=== PATIENT | female | born 1950 | race Caucasian/White ===

== ENCOUNTER 2016-11-05 05:32 | Inpatient (IN) | payer MEDICARE ==
[2016-11-05] MEDS ORDERED: SODIUM CHLORIDE 0.9% 1,000 ML IV STA (05:46)
[2016-11-05] MEDS ORDERED: MORPHINE SULFATE 4 MG/ML SYRINGE IV STA (05:46)
--- NOTE | 2016-11-05 05:47 | ED ---
General Adult HPI - General Chief complaint: Chest Pain Stated complaint: Chest Pain Time Seen by Provider: 11/05/16 05:34 Source: patient, RN notes reviewed, old records reviewed Mode of arrival: wheelchair Limitations: no limitations - History of Present Illness Initial comments: This is a 66-year-old female in the ER for evaluation. Patient coming in for evaluation of chest pain, racing heart and shortness of breath. Patient did take nitroglycerin but was unable take any regular medications. Patient does have significant history of heart disease including stents, patient was on her way to she can for evaluation status post renal transplant today, was a symptomatically last night and the visit was just follow-up. Patient denies any recent fever cough or congestion, patient was feeling normal, these symptoms all seem to begin today. No modifying factors for sepsis, patient currently is resting comfortably - Related Data Home Medications Medication Instructions Recorded Confirmed Ascorbic Acid [Vitamin C] 500 mg PO DAILY 04/09/15 11/05/16 Aspirin EC [Ecotrin Low Dose] 81 mg PO DAILY 04/09/15 11/05/16 Atenolol [Tenormin] 100 mg PO DAILY 04/09/15 11/05/16 Cholecalciferol [Vitamin D3] 2,000 unit PO DAILY 04/09/15 11/05/16 Ferrous Sulfate [Iron (65 MG 325 mg PO DAILY 04/09/15 11/05/16 Elemental)] Mycophenolate Mofetil [Cellcept] 250 mg PO BID@0900,2100 04/09/15 11/05/16 Mycophenolate Mofetil [Cellcept] 500 mg PO BID@0900,209904/09/15 11/05/16 Tacrolimus [Prograf] 2 mg PO BID 04/09/15 11/05/16 predniSONE 5 mg PO DAILY 04/09/15 11/05/16 HYDROcodone/APAP 5-325MG [[place] 1 tab PO Q6H PRN 03/04/16 11/05/16 5-325] Multivits-Min/Iron/FA/Lutein 1 tab PO DAILY 03/04/16 11/05/16 [Centrum Silver Women Tablet] Nitroglycerin Sl Tabs [Nitrostat] 0.4 mg SUBLINGUAL Q5M PRN 03/04/16 11/05/16 Vitamin B Complex 1 cap PO DAILY 03/04/16 11/05/16 Albuterol Inhaler [Ventolin Hfa 2 puff INHALATION RT-Q4H PRN 09/16/16 11/05/16 Inhaler] Atorvastatin [Lipitor] 20 mg PO DAILY 09/16/16 11/05/16 Furosemide [Lasix] 20 mg PO DAILY 09/16/16 11/05/16 Glucagon Emergency Kit 1 mg IM ONCE PRN 09/16/16 11/05/16 INSULIN LISPRO (HumaLOG) [humaLOG] See Protocol SQ CONTINUOUS 09/16/16 11/05/16 Ranitidine HCl [Zantac] 75 mg PO DAILY 09/16/16 11/05/16 Previous Rx's Medication Instructions Recorded rOPINIRole HCL [Requip] 1 mg PO BID #0 09/17/16 Allergies Allergy/AdvReac Type Severity Reaction Status Date / Time metoprolol tartrate Allergy Confusion Verified 11/05/16 05:39 [From Lopressor] Sulfa (Sulfonamide Allergy Unknown Verified 11/05/16 05:39 Antibiotics) vancomycin Allergy Unknown Verified 11/05/16 05:39 venom-honey bee Allergy Swelling Verified 11/05/16 05:39 [bee venom (honey bee)] Review of Systems ROS Statement: Those systems with pertinent positive or pertinent negative responses have been documented in the HPI. ROS Other: All systems not noted in ROS Statement are negative. Past Medical History Past Medical History: Coronary Artery Disease (CAD), Diabetes Mellitus, GERD/ Reflux, Hyperlipidemia, Hypertension, Renal Disease Additional Past Medical History / Comment(s): chronic anemia, IDDM with insulin pump, vitamin B-12 deficiency, vitamin D deficiency, chronic back problems PT stated has changed her diet and has lost 30 # IN 6 MONTHS. History of Any Multi-Drug Resistant Organisms: None Reported Past Surgical History: Section, Orthopedic Surgery Additional Past Surgical History / Comment(s): 2005 Kidney Transplant, bilateral cataracts removal with lens implants, retinal peeling in one eye, bilateral eye muscle surgery for diplopia, L achilles tendon repair , L upper arm dialysis fistula, Past Anesthesia/Blood Transfusion Reactions: No Reported Reaction Past Psychological History: No Psychological Hx Reported Additional Psychological History / Comment(s): Pt resides with her spouse and 2 dogs. 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 She is independent. She drives. She denies recent travel. Smoking Status: Never smoker Past Alcohol Use History: Occasional Additional Past Alcohol Use History / Comment(s): Patient is a lifelong nonsmoker. She does drink red wineOCC LESS THEN 7 GLASSES PER WEEK Past Drug Use History: None Reported - Past Family History Father Family Medical History: Myocardial Infarction ([place]) Additional Family Medical History / Comment(s): Father at age 70 from myocardial infarction Mother Additional Family Medical History / Comment(s): Mother at age 86 from pneumonia. Sister(s) Family Medical History: Cancer Additional Family Medical History / Comment(s): Patient has one sister that is alive and has had bresat cancer. She does not have any brothers. Patient has 2 children: One son that is healthy and one daughter with fibromyalgia. General Exam Limitations: no limitations General appearance: alert, in no apparent distress Head exam: Present: atraumatic, normocephalic, normal inspection Eye exam: Present: normal appearance, PERRL, EOMI. Absent: scleral icterus, conjunctival injection, periorbital swelling ENT exam: Present: normal exam, mucous membranes moist Neck exam: Present: normal inspection. Absent: tenderness, meningismus, lymphadenopathy Respiratory exam: Present: normal lung sounds bilaterally. Absent: respiratory distress, wheezes, rales, rhonchi, stridor Cardiovascular Exam: Present: regular rate, normal rhythm, normal heart sounds. Absent: systolic murmur, diastolic murmur, rubs, gallop, clicks GI/Abdominal exam: Present: soft, normal bowel sounds. Absent: distended, tenderness, guarding, rebound, rigid Extremities exam: Present: normal inspection, full ROM, normal capillary refill. Absent: tenderness, pedal edema, joint swelling, calf tenderness Back exam: Present: normal inspection Neurological exam: Present: alert, oriented X3, CN II-XII intact Psychiatric exam: Present: normal affect, normal mood Skin exam: Present: warm, dry, intact, normal color. Absent: rash Course Vital Signs 11/05/16 11/05/16 05:35 07:18 Temperature 97.7 F Pulse Rate 95 89 Respiratory 18 16 Rate Blood Pressure 204/101 213/104 O2 Sat by Pulse 99 Oximetry - Reevaluation(s) Reevaluation #1: 11/05/16 07:24 Blood pressure very difficult to control EKG Findings - EKG Comments: EKG Findings:: EKG shows normal sinus rhythm rate of 95, [place] 154, QRS 110, QTc 507 Medical Decision Making - Medical Decision Making 6060 mg ER for evaluation of hypertension, severely uncontrolled hypertension with chest pain in an rapid heart rate, elevated troponin, patient does have history of one kidney, patient will be admitted for cardiac evaluation and treatment - Lab Data Result diagrams: 11/05/16 06:09 11/05/16 06:09 Lab Results 11/05/16 11/05/16 11/05/16 Range/Units 06:09 06:09 06:09 WBC 5.8 (3.8-10.6) k/uL RBC 3.69 L (3.80-5.40) m/uL Hgb 10.8 L (11.4-16.0) gm/dL Hct 33.9 L (34.0-46.0) % MCV 91.8 (80.0-100.0) fL MCH 29.2 (25.0-35.0) pg MCHC 31.8 (31.0-37.0) g/dL RDW 14.0 (11.5-15.5) % Plt Count 242 (150-450) k/uL Neutrophils % 58 % Lymphocytes % 27 % Monocytes % 9 % Eosinophils % 3 % Basophils % 1 % Neutrophils # 3.4 (1.3-7.7) k/uL Lymphocytes # 1.6 (1.0-4.8) k/uL Monocytes # 0.5 (0-1.0) k/uL Eosinophils # 0.2 (0-0.7) k/uL Basophils # 0.0 (0-0.2) k/uL PT (9.0-12.0) sec INR (<1.1) APTT (22.0-30.0) sec Sodium 142 (137-145) mmol/L Potassium 4.1 (3.5-5.1) mmol/L Chloride 104 (98-107) mmol/L Carbon Dioxide 26 (22-30) mmol/L Anion Gap 12 mmol/L BUN 31 H (7-17) mg/dL Creatinine 1.60 H (0.52-1.04) mg/dL Est GFR (MDRD) Af Amer 39 (>60 ml/min/1.73 sqM) Est GFR (MDRD) Non-Af 32 (>60 ml/min/1.73 sqM) Glucose 199 H (74-99) mg/dL Calcium 9.4 (8.4-10.2) mg/dL Magnesium 1.6 (1.6-2.3) mg/dL Total Bilirubin 0.4 (0.2-1.3) mg/dL AST 26 (14-36) U/L ALT 31 (9-52) U/L Alkaline Phosphatase 93 (38-126) U/L Total Creatine Kinase 134 (30-135) U/L CK-MB (CK-2) 2.7 H* (0.0-2.4) ng/mL CK-MB (CK-2) Rel Index 2.0 Troponin I 0.055 H* (0.000-0.034) ng/mL NT-Pro-B Natriuret Pep pg/mL Total Protein 6.0 L (6.3-8.2) g/dL Albumin 3.4 L (3.5-5.0) g/dL Lipase 21 L (23-300) U/L 11/05/16 11/05/16 Range/Units 06:09 06:09 WBC (3.8-10.6) k/uL RBC (3.80-5.40) m/uL Hgb (11.4-16.0) gm/dL Hct (34.0-46.0) % MCV (80.0-100.0) fL MCH (25.0-35.0) pg MCHC (31.0-37.0) g/dL RDW (11.5-15.5) % Plt Count (150-450) k/uL Neutrophils % % Lymphocytes % % Monocytes % % Eosinophils % % Basophils % % Neutrophils # (1.3-7.7) k/uL Lymphocytes # (1.0-4.8) k/uL Monocytes # (0-1.0) k/uL Eosinophils # (0-0.7) k/uL Basophils # (0-0.2) k/uL PT 10.2 (9.0-12.0) sec INR 1.0 (<1.1) APTT 22.1 (22.0-30.0) sec Sodium (137-145) mmol/L Potassium (3.5-5.1) mmol/L Chloride (98-107) mmol/L Carbon Dioxide (22-30) mmol/L Anion Gap mmol/L BUN (7-17) mg/dL Creatinine (0.52-1.04) mg/dL Est GFR (MDRD) Af Amer (>60 ml/min/1.73 sqM) Est GFR (MDRD) Non-Af (>60 ml/min/1.73 sqM) Glucose (74-99) mg/dL Calcium (8.4-10.2) mg/dL Magnesium (1.6-2.3) mg/dL Total Bilirubin (0.2-1.3) mg/dL AST (14-36) U/L ALT (9-52) U/L Alkaline Phosphatase (38-126) U/L Total Creatine Kinase (30-135) U/L CK-MB (CK-2) (0.0-2.4) ng/mL CK-MB (CK-2) Rel Index Troponin I (0.000-0.034) ng/mL NT-Pro-B Natriuret Pep 2440 pg/mL Total Protein (6.3-8.2) g/dL Albumin (3.5-5.0) g/dL Lipase (23-300) U/L - Radiology Data Radiology results: report reviewed (XR abd w CXR is negative for acute disease) , image reviewed Critical Care Time Critical Care Time: Yes Total Critical Care Time: 31 Disposition Clinical Impression: Chest pain, Hypertensive urgency Disposition: ADMITTED IP TO THIS [facility] Condition: Undetermined Instructions: Chest Pain (ED) Referrals: Refugio Cordova MD [Primary Care Provider] - 1-2 days
[2016-11-05 06:35] LABS: Basophils % (A) 1 %; CH 29.9; CHCM 32.7; Eosinophils # (A) 0.2 k/uL (0-0.7); Eosinophils % (A) 3 %; HCT 33.9 % (34.0-46.0); HDW 2.72; HGB 10.8 gm/dL (11.4-16.0); Luc # (Auto) 0.15; Luc % (Auto) 3; Lymphocytes # (A) 1.6 k/uL (1.0-4.8); Lymphocytes % (A) 27 %; MCH 29.2 pg (25.0-35.0); MCHC 31.8 g/dL (31.0-37.0); MCV 91.8 fL (80.0-100.0); Monocytes # (A) 0.5 k/uL (0-1.0); Monocytes % (A) 9 %; Neutrophils # (A) 3.4 k/uL (1.3-7.7); Neutrophils % (A) 58 %; RBC 3.69 m/uL (3.80-5.40); WBC 5.8 k/uL (3.8-10.6)
[2016-11-05 06:39] LABS: Calcium 9.4 mg/dL (8.4-10.2); Magnesium 1.6 mg/dL (1.6-2.3); Potassium 4.1 mmol/L (3.5-5.1); Total Bilirubin 0.4 mg/dL (0.2-1.3)
[2016-11-05] MEDS ORDERED: MORPHINE SULFATE 4 MG/ML SYRINGE IV PRN (06:42)
[2016-11-05] MEDS ORDERED: ASPIRIN 81 MG CHEW PO STA (06:42)
[2016-11-05] MEDS ORDERED: NITROGLYCERIN SL TABS 0.4 MG TAB SUBLINGUAL PRN (06:42)
[2016-11-05 06:45] LABS: Partial Thromboplastin Time 22.1 sec (22.0-30.0); Prothrombin Time 10.2 sec (9.0-12.0)
[2016-11-05] MEDS ORDERED: ENALAPRILAT 1.25 MG/ML 1 ML VIAL IVP STA (06:46)
--- NOTE | 2016-11-05 06:57 | XR ---
EXAMINATION TYPE: XR chest 2V DATE OF EXAM: 11/05/2016 6:42 AM COMPARISON: 09/16/2016 HISTORY: Chest pain shortness of breath cardiac stents 5 years ago. TECHNIQUE: Frontal and lateral views of the chest are obtained. FINDINGS: There is no focal air space opacity, pleural effusion, or pneumothorax seen. There is mild cardiomegaly. The osseous structures are intact. IMPRESSION: 1. No active lung infiltrates. 2. Cardiomegaly. 3. No significant interval change.
[2016-11-05 07:07] LABS: Creatine Kinase MB 2.7 ng/mL (0.0-2.4); Troponin I 0.055 ng/mL (0.000-0.034)
[2016-11-05] MEDS ORDERED: hydrALAZINE HCL 20 MG/ML 1 ML VIAL IVP PRN (07:25)
[2016-11-05] MEDS ORDERED: hydrALAZINE HCL 20 MG/ML 1 ML VIAL IVP STA (07:25)
--- NOTE | 2016-11-05 09:38 | P.CRDCN ---
History of Present Illness Consult date: 11/05/16 Requesting physician: Refugio Cordova Consult reason: chest pain Chief complaint: Chest pain History of present illness: This is a pleasant 66-year-old female with history of hypertension, diabetes, hyperlipidemia, coronary artery disease with prior stent placements approximately 4 years ago, history of kidney transplant 11 years ago, denies nicotine dependence, drinks red wine occasionally, she states that she got up around 4 AM this morning, she had appointments at [facility], when she developed midsternal chest pressure and heaviness with a pounding sensation in her chest. She took a baby aspirin along with a sublingual nitroglycerin and shortly thereafter the symptoms resolved. While in the car, she again developed pressure in the chest and took a second sublingual nitroglycerin and decided to come to the emergency room for further evaluation. Patient did have mild associated nausea, denies shortness of breath or diaphoresis. The patient has recently moved to this area and has not yet been established with a press bucker or permit review assistant locally. Chest x-ray did not reveal any active lung infiltrates, no significant interval change. Initial EKG shows a normal sinus rhythm with no acute changes. Laboratory data was reviewed, hemoglobin 10.8, potassium 4.1, creatinine 1.6, BUN 31. Initial troponin 0.055, BNP level 2440. Blood pressure 160/78, on arrival here the patient's blood pressure was noted to be 204/101. At the time of my examination this morning, patient is currently chest pain-free. Past Medical History Past Medical History: Coronary Artery Disease (CAD), Diabetes Mellitus, GERD/ Reflux, Hyperlipidemia, Hypertension, Renal Disease Additional Past Medical History / Comment(s): Chronic renal disease stage III with previous renal transplant, chronic anemia, IDDM with insulin pump, DKA, chronic back problems, pt stated has changed her diet (gluten free) and has lost 30 # IN 6 MONTHS. History of Any Multi-Drug Resistant Organisms: None Reported Past Surgical History: Section, Heart Catheterization With Stent, Orthopedic Surgery Additional Past Surgical History / Comment(s): Cardiac stent which was done at [facility] about 4-5 yrs ago, 2004 Kidney transplant at [facility], bilateral cataracts removal with lens implants, retinal peeling in left eye, L achilles tendon repair , L upper arm dialysis fistula, epidural injections to low back. Past Anesthesia/Blood Transfusion Reactions: No Reported Reaction, Motion Sickness Date of Last Stent Placement:: ?2010 or 2011 Past Psychological History: No Psychological Hx Reported Additional Psychological History / Comment(s): Pt resides with her spouse and 2 dogs. 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 She is independent. She drives. She denies recent travel. Smoking Status: Never smoker Past Alcohol Use History: Occasional Additional Past Alcohol Use History / Comment(s): Patient is a lifelong nonsmoker. She does drink red wine OCC LESS THEN 7 GLASSES PER WEEK Past Drug Use History: None Reported - Past Family History Father Family Medical History: Myocardial Infarction ([place]) Additional Family Medical History / Comment(s): Father at age 70 from myocardial infarction Mother Additional Family Medical History / Comment(s): Mother at age 86 from pneumonia. Sister(s) Family Medical History: Cancer Additional Family Medical History / Comment(s): Patient has one sister that is alive and has had breast cancer. She does not have any brothers. Patient has 2 children: One son that is healthy and one daughter with fibromyalgia. Medications and Allergies Home Medications Medication Instructions Recorded Confirmed Type Ascorbic Acid [Vitamin C] 500 mg PO DAILY 04/09/15 11/05/16 History Aspirin EC [Ecotrin Low Dose] 81 mg PO DAILY 04/09/15 11/05/16 History Atenolol [Tenormin] 100 mg PO DAILY 04/09/15 11/05/16 History Cholecalciferol [Vitamin D3] 2,000 unit PO DAILY 04/09/15 11/05/16 History Ferrous Sulfate [Iron (65 MG 325 mg PO DAILY 04/09/15 11/05/16 History Elemental)] Mycophenolate Mofetil [Cellcept] 250 mg PO BID@0900,209904/09/15 11/05/16 History Mycophenolate Mofetil [Cellcept] 500 mg PO BID@0900,209904/09/15 11/05/16 History Tacrolimus [Prograf] 2 mg PO BID 04/09/15 11/05/16 History predniSONE 5 mg PO DAILY 04/09/15 11/05/16 History HYDROcodone/APAP 5-325MG [[place] 1 tab PO Q6H PRN 03/04/16 11/05/16 History 5-325] Multivits-Min/Iron/FA/Lutein 1 tab PO DAILY 03/04/16 11/05/16 History [Centrum Silver Women Tablet] Nitroglycerin Sl Tabs [Nitrostat] 0.4 mg SUBLINGUAL Q5M PRN 03/04/16 11/05/16 History Vitamin B Complex 1 cap PO DAILY 03/04/16 11/05/16 History Albuterol Inhaler [Ventolin Hfa 2 puff INHALATION RT-Q4H PRN 09/16/16 11/05/16 History Inhaler] Atorvastatin [Lipitor] 20 mg PO DAILY 09/16/16 11/05/16 History Furosemide [Lasix] 20 mg PO DAILY 09/16/16 11/05/16 History Glucagon Emergency Kit 1 mg IM ONCE PRN 09/16/16 11/05/16 History INSULIN LISPRO (HumaLOG) [humaLOG] See Protocol SQ CONTINUOUS 09/16/16 11/05/16 History Ranitidine HCl [Zantac] 75 mg PO DAILY 09/16/16 11/05/16 History Allergies Allergy/AdvReac Type Severity Reaction Status Date / Time Sulfa (Sulfonamide Allergy Unknown Verified 11/05/16 07:58 Antibiotics) vancomycin Allergy Unknown Verified 11/05/16 07:58 venom-honey bee Allergy Swelling Verified 11/05/16 07:58 [bee venom (honey bee)] metoprolol tartrate AdvReac Confusion Verified 11/05/16 07:58 [From Lopressor] Physical Exam Vitals: Vital Signs Temp Pulse Resp BP Pulse Ox 11/05/16 08:13 97.0 F L 99 16 166/78 98 11/05/16 07:34 89 16 205/98 11/05/16 07:18 89 16 213/104 PHYSICAL EXAMINATION: HEENT: Head is atraumatic, normocephalic. Pupils equal, round. Neck is supple. There is no elevated jugular venous pressure. HEART EXAMINATION: Heart S1 S2 1 systolic murmur is heard. CHEST EXAMINATION: Lungs are clear to auscultation and precussion. No chest wall tenderness is noted on palpation or with deep breathing. ABDOMEN: Soft, nontender. Bowel sounds are heard. No organomegaly noted. EXTREMITIES: 2+ peripheral pulses with trace evidence of peripheral edema and no calf tenderness noted. NEUROLOGIC patient is awake, alert and oriented -3. . Results 11/05/16 06:09 11/05/16 06:09 Current Medications Generic Name Dose Route Start Last Admin Trade Name Rodolfo PRN Reason Stop Dose Admin Aspirin 325 mg 11/06/16 09:00 Aspirin PO DAILY [facility]–1983 Hydralazine HCl 10 mg 11/05/16 07:25 Apresoline IVP Q4HR PRN Blood Pressure - High Sodium Chloride 1,000 mls @ 100 mls/hr 11/05/16 05:46 11/05/16 07:33 Saline 0.9% IV 11/05/16 15:45 100 mls/hr .Q10H STA Administration Sodium Chloride 1,000 mls @ 100 mls/hr 11/05/16 06:45 Saline 0.9% IV .Q10H LAWANDA Morphine Sulfate 4 mg 11/05/16 06:42 Morphine Sulfate (Inj) IV Q4HR PRN Chest Pain Nitroglycerin 0.4 mg 11/05/16 06:42 Nitrostat SUBLINGUAL Q5M PRN Chest Pain EKG Interpretations (text) EKG shows normal sinus rhythm with no acute changes. Assessment and Plan Plan: Assessment and plan #1 chest pain, rule out acute coronary syndrome. EKG shows a normal sinus rhythm with no acute changes. Initial troponin 0.055. #2 accelerated hypertension, blood pressure on arrival 204/101, 166/78 this morning. #3 history of hypertension #4 diabetes #5 hyperlipidemia #6 end-stage renal disease, history of renal transplant 11 years ago. #7 known history of coronary artery disease with prior stent placements 2 approximately 4 years ago, exact details unavailable. #8 chronic back problems Plan We will repeat an EKG this morning. Obtained to further troponin values. Obtain echocardiogram with Doppler study. Continue aspirin, initiate IV heparin. Resume patient's Lipitor, resume Tenormin. Further recommendations will be based on these findings. DNP note has been reviewed, I agree with a documented findings and plan of care. Patient was seen and examined.
[2016-11-05] MEDS ORDERED: HEPARIN SODIUM,PORCINE 5,000 UNIT/ML 1 ML VIAL IV ONE (10:00)
[2016-11-05] MEDS: SODIUM CHLORIDE 0.9% 1,000 ML IV SCH ×2 (11:26→17:34)
[2016-11-05] MEDS: ATORVASTATIN 80 MG TAB PO SCH (11:42)
[2016-11-05] MEDS: ATENOLOL 50 MG TAB PO SCH (11:42)
[2016-11-05] MEDS: HEPARIN SODIUM,PORCINE/D5W PMX 25,000 UNIT in DEXTROSE/WATER 1 500ML.BAG IV SCH (11:43)
[2016-11-05 11:51] LABS: Glucose,Whole Blood 142 mg/dL (75-99)
--- NOTE | 2016-11-05 12:12 | ECHOF ---
Referral Reason:chest pain MEASUREMENTS -------- HEIGHT: 167.6 cm WEIGHT: 97.5 kg BP: 171/81 RVIDd: 2.7 cm (< 3.3) IVSd: 1.3 cm (0.6 - 1.1) LVIDd: 4.7 cm (3.9 - 5.3) LVPWd: 1.3 cm (0.6 - 1.1) IVSs: 1.8 cm LVIDs: 3.3 cm LVPWs: 1.9 cm LA Diam: 4.1 cm (2.7 - 3.8) LAESV Index (A-L): 27.27 ml/m Ao Diam: 3.0 cm (2.0 - 3.7) AV Cusp: 2.0 cm (1.5 - 2.6) MV EXCURSION: 7.636 mm (> 18.000) MV EF SLOPE: 30 mm/s (70 - 150) EPSS: 1.0 cm MV E [place]: 1.30 m/s MV DecT: 249 ms MV A [place]: 1.05 m/s MV E/A Ratio: 1.24 RAP: 15.00 mmHg RVSP: 51.65 mmHg FINDINGS -------- Sinus rhythm. This was a technically good study. The left ventricular size is normal. There is mild concentric left ventricular hypertrophy. Overall left ventricular systolic function is normal with, an EF between 60 - 65 %. The right ventricle is normal in size. The left atrium is normal in size. Normal LA size by volume 22+/-6 ml/m2. The right atrium is normal in size. There is mild aortic valve sclerosis. The mitral valve leaflets are moderately thickened. Moderate mitral annular calcification present. There is trace to mild mitral regurgitation. The peak and mean MV gradients are 8.39mmHg 3.93mmHg as measured by doppler. Mild tricuspid regurgitation present. There is moderate pulmonary hypertension. The right ventricular systolic pressure, as measured by Doppler, is 51.65mmHg. Trace/mild (physiologic) pulmonic regurgitation. The aortic root size is normal. The inferior vena cava is dilated with no significant inspiratory collapse which is consistent estimated right atrial pressure of >15 mmHg. There is no pericardial effusion. CONCLUSIONS -------- 1. Sinus rhythm. 2. Moderate mitral annular calcification present. 3. There is trace to mild mitral regurgitation. 4. The peak and mean MV gradients are 8.39mmHg 3.93mmHg as measured by doppler. 5. Mild tricuspid regurgitation present. 6. There is moderate pulmonary hypertension. 7. The right ventricular systolic pressure, as measured by Doppler, is 51.65mmHg. 8. Trace/mild (physiologic) pulmonic regurgitation. 9. The aortic root size is normal. 10. The inferior vena cava is dilated with no significant inspiratory collapse which is consistent estimated right atrial pressure of >15 mmHg. 11. There is no pericardial effusion. 12. This was a technically good study. 13. The left ventricular size is normal. 14. There is mild concentric left ventricular hypertrophy. 15. Overall left ventricular systolic function is normal with, an EF between 60 - 65 %. 16. The right ventricle is normal in size. 17. Normal LA size by volume 22+/-6 ml/m2. 18. There is mild aortic valve sclerosis. 19. The mitral valve leaflets are moderately thickened. ASSET CARD CLERK: Jo-Ann Betts RDCS
[2016-11-05 14:10] LABS: Creatine Kinase MB 2.8 ng/mL (0.0-2.4); Troponin I 0.053 ng/mL (0.000-0.034)
--- NOTE | 2016-11-05 14:25 | P.HPIM ---
History of Present Illness H&P Date: 11/05/16 Chief Complaint: Chest pain This is a 66-year-old pleasant female patient of Dr. Cordova , she has underlying past medical history for diabetes mellitus on insulin pump, CAD, GERD , hyperlipidemia, hypertension, end-stage renal disease status post renal transplant 11 years ago at [facility] and follows every 6 months. In fact, patient had an appointment today to see her renal doctor the [facility]. She states she got up this morning and she had a tightness in her chest. She states she took aspirin and nitroglycerin and the chest pain went away but she still had some minimal tightness. She states she's had the same type of pain before but she was not diagnosed with a myocardial infarction. She states her blood pressure has been running about 130/60 at home. Her normal creatinine is 1.5-1.6. She also complains of left shoulder soreness and worsens with range of motion. Patient has had problems with her insulin pump recently is going to have this checked at [facility] today. She states she was having bubbles in the reservoir and she was not using it and using her Lantus and Humalog scale instead. Patient her gives history that they drove family members including grandchildren to the airport yesterday and spent extensive time in the car and the family was leaving for [facility] and this was very stressful for the patient. She presented to [facility] emergency center with the above. BUN 31 and creatinine 1.6. Her blood glucose 199. Initial troponin 0.055. ProBNP 2440. Patient was admitted to the selective care unit and a cardiology consult requested. They have ordered echocardiogram, repeat troponins and heparin drip. We have added in consult with nephrology in case patient needs heart catheterization. Review of Systems All systems: negative Constitutional: Denies chills, Denies fever Eyes: denies blurred vision, denies pain Ears, nose, mouth and throat: Denies headache, Denies sore throat Cardiovascular: Reports chest pain, Reports leg edema, Denies lightheadedness, Denies orthopnea, Denies palpitations, Denies paroxysmal nocturnal dyspnea, Denies shortness of breath, Denies syncope Respiratory: Denies cough, Denies cough with sputum, Denies dyspnea, Denies excessive sputum, Denies hemoptysis, Denies home oxygen Gastrointestinal: Denies abdominal pain, Denies diarrhea, Denies nausea, Denies vomiting Genitourinary: Denies dysuria, Denies hematuria Musculoskeletal: Denies myalgias Integumentary: Denies pruritus, Denies rash Neurological: Denies numbness, Denies weakness Psychiatric: Denies anxiety, Denies depression Endocrine: Denies fatigue, Denies weight change Past Medical History Past Medical History: Coronary Artery Disease (CAD), Diabetes Mellitus, GERD/ Reflux, Hyperlipidemia, Hypertension, Renal Disease Additional Past Medical History / Comment(s): Chronic renal disease stage III with previous renal transplant, chronic anemia, IDDM with insulin pump, DKA, chronic back problems, pt stated has changed her diet (gluten free) and has lost 30 # IN 6 MONTHS. History of Any Multi-Drug Resistant Organisms: None Reported Past Surgical History: Section, Heart Catheterization With Stent, Orthopedic Surgery Additional Past Surgical History / Comment(s): Cardiac stent which was done at [facility] about 4-5 yrs ago, 2004 Kidney transplant at [facility], bilateral cataracts removal with lens implants, retinal peeling in left eye, L achilles tendon repair , L upper arm dialysis fistula, epidural injections to low back. Past Anesthesia/Blood Transfusion Reactions: No Reported Reaction, Motion Sickness Date of Last Stent Placement:: ?2010 or 2011 Past Psychological History: No Psychological Hx Reported Additional Psychological History / Comment(s): Pt resides with her spouse and 2 dogs. 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 She is independent. She drives. She denies recent travel. Smoking Status: Never smoker Past Alcohol Use History: Occasional Additional Past Alcohol Use History / Comment(s): Patient is a lifelong nonsmoker. She does drink red wine OCC LESS THEN 7 GLASSES PER WEEK Past Drug Use History: None Reported - Past Family History Father Family Medical History: Myocardial Infarction ([place]) Additional Family Medical History / Comment(s): Father at age 70 from myocardial infarction Mother Additional Family Medical History / Comment(s): Mother at age 86 from pneumonia. Sister(s) Family Medical History: Cancer Additional Family Medical History / Comment(s): Patient has one sister that is alive and has had breast cancer. She does not have any brothers. Patient has 2 children: One son that is healthy and one daughter with fibromyalgia. Medications and Allergies Home Medications Medication Instructions Recorded Confirmed Type Ascorbic Acid [Vitamin C] 500 mg PO DAILY 04/09/15 11/05/16 History Aspirin EC [Ecotrin Low Dose] 81 mg PO DAILY 04/09/15 11/05/16 History Atenolol [Tenormin] 100 mg PO DAILY 04/09/15 11/05/16 History Cholecalciferol [Vitamin D3] 2,000 unit PO DAILY 04/09/15 11/05/16 History Ferrous Sulfate [Iron (65 MG 325 mg PO DAILY 04/09/15 11/05/16 History Elemental)] Mycophenolate Mofetil [Cellcept] 250 mg PO BID@0900,209904/09/15 11/05/16 History Mycophenolate Mofetil [Cellcept] 500 mg PO BID@0900,209904/09/15 11/05/16 History Tacrolimus [Prograf] 2 mg PO BID 04/09/15 11/05/16 History predniSONE 5 mg PO DAILY 04/09/15 11/05/16 History HYDROcodone/APAP 5-325MG [[place] 1 tab PO Q6H PRN 03/04/16 11/05/16 History 5-325] Multivits-Min/Iron/FA/Lutein 1 tab PO DAILY 03/04/16 11/05/16 History [Centrum Silver Women Tablet] Nitroglycerin Sl Tabs [Nitrostat] 0.4 mg SUBLINGUAL Q5M PRN 03/04/16 11/05/16 History Vitamin B Complex 1 cap PO DAILY 03/04/16 11/05/16 History Albuterol Inhaler [Ventolin Hfa 2 puff INHALATION RT-Q4H PRN 09/16/16 11/05/16 History Inhaler] Atorvastatin [Lipitor] 20 mg PO DAILY 09/16/16 11/05/16 History Furosemide [Lasix] 20 mg PO DAILY 09/16/16 11/05/16 History Glucagon Emergency Kit 1 mg IM ONCE PRN 09/16/16 11/05/16 History INSULIN LISPRO (HumaLOG) [humaLOG] See Protocol SQ CONTINUOUS 09/16/16 11/05/16 History Ranitidine HCl [Zantac] 75 mg PO DAILY 09/16/16 11/05/16 History Allergies Allergy/AdvReac Type Severity Reaction Status Date / Time Sulfa (Sulfonamide Allergy Unknown Verified 11/05/16 07:58 Antibiotics) vancomycin Allergy Unknown Verified 11/05/16 07:58 venom-honey bee Allergy Swelling Verified 11/05/16 07:58 [bee venom (honey bee)] metoprolol tartrate AdvReac Confusion Verified 11/05/16 07:58 [From Lopressor] Physical Exam Vitals: Vital Signs Temp Pulse Pulse Resp BP BP Pulse Ox 11/05/16 10:04 96.1 F L 79 16 171/81 11/05/16 08:13 97.0 F L 99 16 166/78 98 11/05/16 07:34 89 16 205/98 11/05/16 07:18 89 16 213/104 Gen: This is a obese 66-year-old female. She is sitting on the edge of the bed appears in no acute distress. HEENT: Head is atraumatic, normocephalic. Pupils equal, round. Sclerae is anicteric. NECK: Supple. No JVD. No lymphadenopathy. No thyromegaly. LUNGS: Clear to auscultation. No wheezes or rhonchi. No intercostal retractions. HEART: Regular rate and rhythm. Systolic murmur. ABDOMEN: Soft. Bowel sounds are present. No masses. No tenderness. EXTREMITIES: 2+ pedal edema. Dorsalis pedis is palpable bilaterally. No calf tenderness. NEUROLOGICAL: Patient is awake, alert and oriented x3. Cranial nerves 2 through 12 are grossly intact. Results CBC & Chem 7: 11/05/16 06:09 11/05/16 06:09 Thrombosis Risk Factor Assmnt - DVT/VTE Prophylaxis DVT/VTE Prophylaxis: Pharmacologic Prophylaxis ordered - Choose All That Apply Any of the Below Risk Factors Present?: Yes Each Factor Represents 1 point: Obesity (BMI >25) Other Risk Factors: Yes Each Risk Factor Represents 2 Points: Age 61-74 years Other congenital or acquired thrombophilia - If yes, enter type in comment: No Thrombosis Risk Factor Assessment Total Risk Factor Score: 3 Thrombosis Risk Factor Assessment Level: Moderate Risk Assessment and Plan Plan: 1. Chest pain rule out acute coronary syndrome. Repeat troponins, echocardiogram and heparin drip. Cardiology is following. Consult with nephrology added for possible heart catheterization. Continue aspirin 325 mg daily, atenolol 100 mg daily, morphine and Nitrostat. 3. Post renal transplant. Continue CellCept 750 mg orally twice every day, Prograf 2 mg orally twice every day, prednisone 5 mg orally once every day. 4. Hypertension and hypertensive cardiovascular disease. Continue atenolol 100 mg orally daily 5. Diabetes mellitus type 2. Continue current insulin pump which patient will resume this evening as she has taken Lantus this morning. 6. Hyperlipidemia. On Lipitor 20 mg daily 7. Obesity with possible obstructive sleep apnea. Need sleep study as an outpatient. 8. Chronic kidney disease stage III. Monitor the patient very closely. 9. GERD. Continue Zantac or equivalent. Patient will be admitted to the hospital for a minimum of 2 night stay. Discharge plan: Return home Impression and plan of care have been directed as dictated by the signing physician. Lainey Cameron nurse practitioner acting as scribe for signing physician. Time with Patient: Greater than 30
[2016-11-05] MEDS ORDERED: ALBUTEROL NEBULIZED 2.5 MG/3 ML INHALATION PRN (14:26)
[2016-11-05] MEDS ORDERED: INSPUCOR MISCELLANE PRN (14:43)
[2016-11-05] MEDS ORDERED: INSULIN PUMP BASAL RATES 1 EACH MISC MISCELLANE PRN (14:43)
[2016-11-05] MEDS ORDERED: INSULIN PUMP TARGET GLUCOSE 1 EACH MISC MISCELLANE PRN (14:43)
[2016-11-05] MEDS ORDERED: INSULIN PUMP ACTIVE INSULIN 1 EACH MISC MISCELLANE PRN (14:43)
[2016-11-05 16:51] LABS: Glucose,Whole Blood 63 mg/dL (75-99)
[2016-11-05 17:04] LABS: Glucose,Whole Blood 69 mg/dL (75-99)
[2016-11-05 17:11] LABS: Glucose,Whole Blood 97 mg/dL (75-99)
[2016-11-05] MEDS: HEPARIN SODIUM,PORCINE 5,000 UNIT/ML 1 ML VIAL IV PRN ×2 (17:29→17:30)
[2016-11-05] MEDS ORDERED: INSULIN LISPRO (humaLOG) 300 UNIT/3 ML VIAL SQ SCH (17:30)
[2016-11-05] MEDS: INSULIN PUMP MEAL BOLUS 1 UNIT MISC MISCELLANE SCH (18:04)
[2016-11-05 19:51] LABS: Creatine Kinase MB 2.5 ng/mL (0.0-2.4); Troponin I 0.052 ng/mL (0.000-0.034)
[2016-11-05 20:16] LABS: Hemoglobin A1C 7.2 % (4.2-6.1)
[2016-11-05] MEDS: MYCOPHENOLATE MOFETIL 500 MG TAB PO SCH (20:17)
[2016-11-05] MEDS: MYCOPHENOLATE MOFETIL 250 MG CAP PO SCH (20:17)
[2016-11-05] MEDS: TACROLIMUS 1 MG CAP PO SCH (20:18)
[2016-11-05 21:04] LABS: Glucose,Whole Blood 68 mg/dL (75-99)
[2016-11-05 21:24] LABS: Glucose,Whole Blood 74 mg/dL (75-99)
[2016-11-05] MEDS: HYDROcodone/APAP 5-325MG 1 EACH TAB PO PRN (23:31)
[2016-11-06] MEDS: INSULIN PUMP MEAL BOLUS 1 UNIT MISC MISCELLANE SCH ×5 (02:13→20:43)
[2016-11-06] MEDS: SODIUM CHLORIDE 0.9% 1,000 ML IV SCH ×2 (03:09→18:53)
[2016-11-06 05:01] LABS: Glucose,Whole Blood 77 mg/dL (75-99)
[2016-11-06 06:24] LABS: Glucose,Whole Blood 64 mg/dL (75-99)
[2016-11-06 06:49] LABS: Aty Lym Flag Slight; CH 29.8; CHCM 32.3; HCT 34.2 % (34.0-46.0); HDW 2.62; MCH 29.8 pg (25.0-35.0); MCHC 32.1 g/dL (31.0-37.0); MCV 92.9 fL (80.0-100.0); Mean Platelet Volume 7.5; RBC 3.68 m/uL (3.80-5.40); RDW 13.9 % (11.5-15.5); WBC 6.7 k/uL (3.8-10.6); WBC (Perox) 6.86
[2016-11-06 07:00] LABS: Potassium 4.2 mmol/L (3.5-5.1)
[2016-11-06 07:30] LABS: Add Differential Manual Differential
[2016-11-06 07:33] LABS: Manual Review Performed; Nucleated Red Blood Cells 0 /100 WBC (0-0); Total Cells Counted 100
[2016-11-06 07:34] LABS: RBC Morphology Normal
[2016-11-06] MEDS: ASPIRIN 325 MG TAB PO SCH (07:47)
[2016-11-06] MEDS: predniSONE 5 MG TAB PO SCH (07:47)
[2016-11-06] MEDS: ATORVASTATIN 80 MG TAB PO SCH (07:48)
[2016-11-06] MEDS: MYCOPHENOLATE MOFETIL 250 MG CAP PO SCH ×2 (07:48→20:47)
[2016-11-06] MEDS: TACROLIMUS 1 MG CAP PO SCH ×2 (07:48→20:48)
[2016-11-06] MEDS: FUROSEMIDE 20 MG TAB PO SCH (07:48)
[2016-11-06] MEDS: FAMOTIDINE 20 MG TAB PO SCH (07:48)
[2016-11-06] MEDS: MYCOPHENOLATE MOFETIL 500 MG TAB PO SCH ×2 (07:48→20:46)
[2016-11-06] MEDS ORDERED: AMINOPHYLLINE 500 MG/20 ML VIAL IV PRN (09:00)
[2016-11-06] MEDS ORDERED: REGADENOSON 0.4 MG/5 ML SYRINGE IV ONE (09:00)
--- NOTE | 2016-11-06 10:46 | NM ---
EXAMINATION TYPE: NM stress lexiscan cardiolite DATE OF EXAM: 11/06/2016 10:41 AM COMPARISON: NONE HISTORY: Chest pain TECHNIQUE: After the intravenous administration of 10.8 mCi Tc 99m Sestamibi - Cardiolite resting SP ECT images acquired 45 minutes post injection. The patient received 0.4mg Lexiscan, 27 mCi Tc 99m Sestamibi - Stress images obtained 30 minutes post injection FINDINGS: Review of stress and rest SPECT images demonstrates sizable area of stress-induced reversible ischemi a involving the apical apical lateral portion of the myocardium.. Gated analysis shows normal wall m otion with an estimated left ventricular ejection fraction of 45 %. Report called. IMPRESSION: 1. Exam positive for stress-induced reversible ischemia involving the apical and apical lateral porti on of the myocardium.
[2016-11-06] MEDS: CHOLECALCIFEROL 1,000 UNIT TAB PO SCH (11:18)
[2016-11-06] MEDS: B COMPLEX-VIT C-VIT E-ZINC 1 EACH TAB PO SCH (11:18)
[2016-11-06] MEDS: MULTIVITAMINS, THERA 1 EACH TAB PO SCH (11:18)
[2016-11-06] MEDS: FERROUS SULFATE 325 MG TAB PO SCH (11:19)
[2016-11-06] MEDS: ATENOLOL 50 MG TAB PO SCH (11:19)
--- NOTE | 2016-11-06 11:38 | EST ---
DATE OF SERVICE: 11/06/2016 AGE: 66Y SEX: F HT: 66" WT: 215 lbs. Protocol Jeromy: Other: Lexiscan Cardiolite Stage: Dur. of Exercise: *Heart Rate Blood Pressure *Rest: 64 Rest: 127/74 * *Max. Achieved: 76 Maximum BP: 211/77 85% PMHR: 131 100% PMHR: 154 *METS: INDICATIONS: Chest pain. MEDICATIONS: CLINICAL INFORMATION: Chest pain, diabetes, hypertension, hypercholesterolemia, family history of coronary artery disease. Utilizing a standard Lexiscan protocol, Lexiscan was given IV push followed by serial EKGs. Baseline EKG shows normal sinus rhythm with normal IL, normal QRS, normal ST-T waves. As Lexiscan was given IV push followed by serial EKGs without any chest pain or pressure, no ST segment deviations or cardiac arrhythmias are noted. These EKGs could not be printed, but was seen on the monitor. MATTRESS WEAVER IMPRESSION: 1. Negative Lexiscan Cardiolite study. 2. Nuclear scintigrams to follow from radiology department.
[2016-11-06 11:51] LABS: Glucose,Whole Blood 202 mg/dL (75-99)
--- NOTE | 2016-11-06 12:32 | P.NPCON ---
History of Present Illness - Reason for Consult chronic renal failure - History of Present Illness Patient is a 66-year-old white female with history of diabetic nephropathy and end-stage renal disease status post living unrelated renal transplant about 11 years ago at [facility]. Patient says serum creatinine is at baseline at about 1.6 with grams per deciliter. She was admitted to the hospital with complaints of chest pain. Troponin was at 0.05 to. Patient did have a stress test and it appears that there was evidence of some reversible ischemia noted. Patient is maintained on Prograf prednisone and CellCept. For her immunosuppression. She denies any chest pains now no significant shortness of breath no nausea vomiting or abdominal pain. She has good urine output. Her renal function currently is at baseline with serum creatinine of 1.6 with grams per deciliter. Review of Systems As per HPI other systems negative Past Medical History Past Medical History: Coronary Artery Disease (CAD), Diabetes Mellitus, GERD/ Reflux, Hyperlipidemia, Hypertension, Renal Disease Additional Past Medical History / Comment(s): Chronic renal disease stage III with previous renal transplant, chronic anemia, IDDM with insulin pump, DKA, chronic back problems, pt stated has changed her diet (gluten free) and has lost 30 # IN 6 MONTHS. History of Any Multi-Drug Resistant Organisms: None Reported Past Surgical History: Section, Heart Catheterization With Stent, Orthopedic Surgery Additional Past Surgical History / Comment(s): Cardiac stent which was done at [facility] about 4-5 yrs ago, 2004 Kidney transplant at [facility], bilateral cataracts removal with lens implants, retinal peeling in left eye, L achilles tendon repair , L upper arm dialysis fistula, epidural injections to low back. Past Anesthesia/Blood Transfusion Reactions: No Reported Reaction, Motion Sickness Date of Last Stent Placement:: ?2010 or 2011 Past Psychological History: No Psychological Hx Reported Additional Psychological History / Comment(s): Pt resides with her spouse and 2 dogs. 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 She is independent. She drives. She denies recent travel. Smoking Status: Never smoker Past Alcohol Use History: Occasional Additional Past Alcohol Use History / Comment(s): Patient is a lifelong nonsmoker. She does drink red wine OCC LESS THEN 7 GLASSES PER WEEK Past Drug Use History: None Reported - Past Family History Father Family Medical History: Myocardial Infarction ([place]) Additional Family Medical History / Comment(s): Father at age 70 from myocardial infarction Mother Additional Family Medical History / Comment(s): Mother at age 86 from pneumonia. Sister(s) Family Medical History: Cancer Additional Family Medical History / Comment(s): Patient has one sister that is alive and has had breast cancer. She does not have any brothers. Patient has 2 children: One son that is healthy and one daughter with fibromyalgia. Medications and Allergies Home Medications Medication Instructions Recorded Confirmed Type Ascorbic Acid [Vitamin C] 500 mg PO DAILY 04/09/15 11/05/16 History Aspirin EC [Ecotrin Low Dose] 81 mg PO DAILY 04/09/15 11/05/16 History Atenolol [Tenormin] 100 mg PO DAILY 04/09/15 11/05/16 History Cholecalciferol [Vitamin D3] 2,000 unit PO DAILY 04/09/15 11/05/16 History Ferrous Sulfate [Iron (65 MG 325 mg PO DAILY 04/09/15 11/05/16 History Elemental)] Mycophenolate Mofetil [Cellcept] 250 mg PO BID@0900,2100 04/09/15 11/05/16 History Mycophenolate Mofetil [Cellcept] 500 mg PO BID@0900,2100 04/09/15 11/05/16 History Tacrolimus [Prograf] 2 mg PO BID 04/09/15 11/05/16 History predniSONE 5 mg PO DAILY 04/09/15 11/05/16 History HYDROcodone/APAP 5-325MG [[place] 1 tab PO Q6H PRN 03/04/16 11/05/16 History 5-325] Multivits-Min/Iron/FA/Lutein 1 tab PO DAILY 03/04/16 11/05/16 History [Centrum Silver Women Tablet] Nitroglycerin Sl Tabs [Nitrostat] 0.4 mg SUBLINGUAL Q5M PRN 03/04/16 11/05/16 History Vitamin B Complex 1 cap PO DAILY 03/04/16 11/05/16 History Albuterol Inhaler [Ventolin Hfa 2 puff INHALATION RT-Q4H PRN 09/16/16 11/05/16 History Inhaler] Atorvastatin [Lipitor] 20 mg PO DAILY 09/16/16 11/05/16 History Furosemide [Lasix] 20 mg PO DAILY 09/16/16 11/05/16 History Glucagon Emergency Kit 1 mg IM ONCE PRN 09/16/16 11/05/16 History INSULIN LISPRO (HumaLOG) [humaLOG] See Protocol SQ CONTINUOUS 09/16/16 11/05/16 History Ranitidine HCl [Zantac] 75 mg PO DAILY 09/16/16 11/05/16 History Allergies Allergy/AdvReac Type Severity Reaction Status Date / Time Sulfa (Sulfonamide Allergy Unknown Verified 11/05/16 07:58 Antibiotics) vancomycin Allergy Unknown Verified 11/05/16 07:58 venom-honey bee Allergy Swelling Verified 11/05/16 07:58 [bee venom (honey bee)] metoprolol tartrate AdvReac Confusion Verified 11/05/16 07:58 [From Lopressor] Physical Exam Vitals: Vital Signs Temp Pulse Pulse Resp BP Pulse Ox 11/06/16 11:30 97.9 F 62 14 162/70 100 11/06/16 08:00 97.7 F 62 16 136/61 100 11/06/16 04:00 97 F L 61 18 142/67 97 11/06/16 00:00 98.3 F 66 18 156/69 99 11/05/16 20:00 97 F L 63 18 153/76 98 11/05/16 16:00 96.8 F L 79 14 126/69 99 Intake and Output 11/05/16 11/06/16 11/06/16 22:59 06:59 14:59 Intake Total 1238.333 554.075 Balance 1238.333 554.075 Intake: IV 125 284.35 Heparin Sodium,Porcine/ 125 284.35 D5w Pmx 25,000 unit In Dextrose/Water 1 500ml. bag @ 10.255 UNITS/KG/HR 20 mls/hr IV .Q24H LAWANDA Rx #:[id number] Intake, IV Titration 1113.333 269.725 Amount Heparin Sodium,Porcine/ 113.333 219.725 D5w Pmx 25,000 unit In Dextrose/Water 1 500ml. bag @ 10.255 UNITS/KG/HR 20 mls/hr IV .Q24H LAWANDA Rx #:[id number] Sodium Chloride 0.9% 1, 1000 50 000 ml @ 100 mls/hr IV . Q10H LAWANDA Rx#:[id number] Oral 0 Other: Voiding Method Toilet Toilet # Voids 3 1 Weight 100.2 kg On examination patient is comfortable blood pressure 136/61 heart rate 62. She is afebrile [place] examination of the heart S1 and S2 Examination lungs bilateral breath sounds are heard Abdomen is soft nontender obese examination of lower extremities shows trace edema bilaterally. SHOE TREER exam is grossly intact. Results - Lab Results Most recent lab results Calcium 9.0 mg/dL (8.4-10.2) 11/06/16 06:17 Magnesium 1.6 mg/dL (1.6-2.3) 11/05/16 06:09 11/06/16 06:34 11/06/16 06:17 Assessment and Plan Plan: Assessment 1. Status post living unrelated renal allograft 11 years ago at [facility] maintained on Prograf CellCept and prednisone with renal function at baseline. Serum creatinine is at 1.6 mg/dL with eGFR a 32 mL per minute. 2. Chest pain with positive stress test being considered for cardiac catheterization 3. Mild volume overload 4. Type 1 diabetes maintained on insulin 5. Coronary artery disease with history of previous coronary artery stenting. Plan We can proceed with cardiac catheterization as renal function is at baseline. Patient will be maintained on IV fluids around the time of the catheterization. I will also give her Mucomyst. I have advised the patient that they may be some worsening of her renal function with acute kidney injury but I'm hopeful that this should recover over the next few days. Patient is not on any Clarence inhibitors and her blood pressure is not low as these factors would potentiate the ATN. Patient would like to maintain local follow-up and have advised her that she can make a follow-up appointment at our office at the time of discharge.
[2016-11-06] MEDS ORDERED: ALPRAZolam 0.25 MG TAB PO PRN (13:14)
[2016-11-06] MEDS ORDERED: SODIUM CHLORIDE 0.9% 1,000 ML in EMPTY BAG 1 BAG IV ONE (13:14)
--- NOTE | 2016-11-06 13:23 | P.PN ---
Subjective This is a 66-year-old pleasant female patient of Dr. Cordova , she has underlying past medical history for diabetes mellitus on insulin pump, CAD, GERD , hyperlipidemia, hypertension, end-stage renal disease status post renal transplant 11 years ago at [facility] and follows every 6 months. In fact, patient had an appointment today to see her renal doctor the [facility]. She states she got up this morning and she had a tightness in her chest. She states she took aspirin and nitroglycerin and the chest pain went away but she still had some minimal tightness. She states she's had the same type of pain before but she was not diagnosed with a myocardial infarction. She states her blood pressure has been running about 130/60 at home. Her normal creatinine is 1.5-1.6. She also complains of left shoulder soreness and worsens with range of motion. Patient has had problems with her insulin pump recently is going to have this checked at [facility] today. She states she was having bubbles in the reservoir and she was not using it and using her Lantus and Humalog scale instead. Patient her gives history that they drove family members including grandchildren to the airport yesterday and spent extensive time in the car and the family was leaving for [facility] and this was very stressful for the patient. She presented to [facility] emergency center with the above. BUN 31 and creatinine 1.6. Her blood glucose 199. Initial troponin 0.055. ProBNP 2440. Patient was admitted to the selective care unit and a cardiology consult requested. They have ordered echocardiogram, repeat troponins and heparin drip. We have added in consult with nephrology in case patient needs heart catheterization. 11/06: Patient underwent stress testing which was positive and she is to undergo heart catheterization today. Dr. Hussein is on consult. Her kidney function remains the same. Patient is very anxious and his May questions regarding undergoing heart catheterization with kidney transplant. Objective - Vital Signs Vital signs: Vital Signs Temp 97.9 F 11/06/16 11:30 Pulse 62 11/06/16 11:30 Resp 14 11/06/16 11:30 BP 162/70 11/06/16 11:30 Pulse Ox 100 11/06/16 11:30 Intake & Output 11/05/16 11/06/16 11/06/16 18:59 06:59 18:59 Intake Total 1538.333 554.075 Balance 1538.333 554.075 Weight 100.2 kg Intake: IV 125 284.35 Heparin Sodium,Porcine/ 125 284.35 D5w Pmx 25,000 unit In Dextrose/Water 1 500ml. bag @ 10.255 UNITS/KG/HR 20 mls/hr IV .Q24H [facility] Rx #:[id number] Intake, IV Titration 1113.333 269.725 Amount Heparin Sodium,Porcine/ 113.333 219.725 D5w Pmx 25,000 unit In Dextrose/Water 1 500ml. bag @ 10.255 UNITS/KG/HR 20 mls/hr IV .Q24H [facility] Rx #:[id number] Sodium Chloride 0.9% 1, 1000 50 000 ml @ 100 mls/hr IV . Q10H [facility]ANDA Rx#:[id number] Oral 300 0 Other: Voiding Method Toilet # Voids 3 1 - Exam Gen: This is a obese 66-year-old female. She is sitting on the edge of the bed appears in no acute distress. HEENT: Head is atraumatic, normocephalic. Pupils equal, round. Sclerae is anicteric. NECK: Supple. No JVD. No lymphadenopathy. No thyromegaly. LUNGS: Clear to auscultation. No wheezes or rhonchi. No intercostal retractions. HEART: Regular rate and rhythm. Systolic murmur. ABDOMEN: Soft. Bowel sounds are present. No masses. No tenderness. EXTREMITIES: 2+ pedal edema. Dorsalis pedis is palpable bilaterally. No calf tenderness. NEUROLOGICAL: Patient is awake, alert and oriented x3. Cranial nerves 2 through 12 are grossly intact. - Labs CBC & Chem 7: 11/06/16 06:34 11/06/16 06:17 Labs: Abnormal Lab Results - Last 24 Hours (Table) 11/05/16 11/05/16 11/05/16 Range/Units 11:48 12:25 15:51 RBC (3.80-5.40) m/uL Hgb (11.4-16.0) gm/dL APTT 37.4 H (22.0-30.0) sec Chloride (98-107) mmol/L BUN (7-17) mg/dL Creatinine (0.52-1.04) mg/dL Glucose (74-99) mg/dL POC Glucose (mg/dL) 142 H (75-99) mg/dL CK-MB (CK-2) 2.8 H* (0.0-2.4) ng/mL Troponin I 0.053 H* (0.000-0.034) ng/mL Triglycerides (<150) mg/dL Cholesterol (<200) mg/dL LDL Cholesterol, Calc (0-99) mg/dL 11/05/16 11/05/16 11/05/16 Range/Units 16:32 16:50 18:26 RBC (3.80-5.40) m/uL Hgb (11.4-16.0) gm/dL APTT (22.0-30.0) sec Chloride (98-107) mmol/L BUN (7-17) mg/dL Creatinine (0.52-1.04) mg/dL Glucose (74-99) mg/dL POC Glucose (mg/dL) 63 L 69 L (75-99) mg/dL CK-MB (CK-2) 2.5 H* (0.0-2.4) ng/mL Troponin I 0.052 H* (0.000-0.034) ng/mL Triglycerides (<150) mg/dL Cholesterol (<200) mg/dL LDL Cholesterol, Calc (0-99) mg/dL 11/05/16 11/05/16 11/06/16 Range/Units 21:03 21:22 01:00 RBC (3.80-5.40) m/uL Hgb (11.4-16.0) gm/dL APTT 61.5 H (22.0-30.0) sec Chloride (98-107) mmol/L BUN (7-17) mg/dL Creatinine (0.52-1.04) mg/dL Glucose (74-99) mg/dL POC Glucose (mg/dL) 68 L 74 L (75-99) mg/dL CK-MB (CK-2) (0.0-2.4) ng/mL Troponin I (0.000-0.034) ng/mL Triglycerides (<150) mg/dL Cholesterol (<200) mg/dL LDL Cholesterol, Calc (0-99) mg/dL 11/06/16 11/06/16 11/06/16 Range/Units 06:17 06:22 06:34 RBC 3.68 L (3.80-5.40) m/uL Hgb 11.0 L (11.4-16.0) gm/dL APTT (22.0-30.0) sec Chloride 108 H (98-107) mmol/L BUN 34 H (7-17) mg/dL Creatinine 1.60 H (0.52-1.04) mg/dL Glucose 70 L (74-99) mg/dL POC Glucose (mg/dL) 64 L (75-99) mg/dL CK-MB (CK-2) (0.0-2.4) ng/mL Troponin I (0.000-0.034) ng/mL Triglycerides 313 H (<150) mg/dL Cholesterol 229 H (<200) mg/dL LDL Cholesterol, Calc 118 H (0-99) mg/dL Assessment and Plan Plan: 1. Chest pain rule out acute coronary syndrome. Repeat troponins, echocardiogram and heparin drip. Cardiology is following. Consult with nephrology added for possible heart catheterization. Continue aspirin 325 mg daily, atenolol 100 mg daily, morphine and Nitrostat. Stress test positive. Heart catheterization scheduled 3. Post renal transplant. Continue CellCept 750 mg orally twice every day, Prograf 2 mg orally twice every day, prednisone 5 mg orally once every day. 4. Hypertension and hypertensive cardiovascular disease. Continue atenolol 100 mg orally daily 5. Diabetes mellitus type 2. Continue current insulin pump which patient will resume this evening as she has taken Lantus this morning. 6. Hyperlipidemia. On Lipitor 20 mg daily 7. Obesity with possible obstructive sleep apnea. Need sleep study as an outpatient. 8. Chronic kidney disease stage III. Monitor the patient very closely. 9. GERD. Continue Zantac or equivalent. Patient will be admitted to the hospital for a minimum of 2 night stay. Discharge plan: Return home Impression and plan of care have been directed as dictated by the signing physician. Lainey Cameron nurse practitioner acting as scribe for signing physician. Time with Patient: Greater than 30
[2016-11-06 13:47] VITALS: BMI 35.6
[2016-11-06 14:04] LABS: Glucose,Whole Blood 90 mg/dL (75-99)
[2016-11-06] MEDS ORDERED: fentaNYL (PF) 50 MCG/ML 2 ML AMP IV ONE (14:30)
[2016-11-06] MEDS: MIDAZOLAM 2 MG/2 ML VIAL IV ONE ×2 (14:30→15:15)
[2016-11-06] MEDS ORDERED: LIDOCAINE 2% INJ 20 MG/ML SQ ONE (14:31)
[2016-11-06] MEDS ORDERED: NITROGLYCERIN OINT 1 INCH/GM PACKET TOPICAL ONE (14:35)
[2016-11-06] MEDS ORDERED: LABETALOL SYRINGE 5 MG/ML IV ONE (14:47)
[2016-11-06] MEDS ORDERED: NITROGLYCERIN SL TABS 0.4 MG TAB SUBLINGUAL ONE (15:20)
[2016-11-06] MEDS ORDERED: amLODIPine 5 MG TAB ONE (15:42)
[2016-11-06] MEDS ORDERED: amLODIPine 5 MG TAB PO STA (15:42)
[2016-11-06] MEDS ORDERED: HYDROmorphone 1 MG/ML 1 ML SYRINGE IVP STA ×2 (15:53→16:30)
[2016-11-06] MEDS ORDERED: HYDROmorphone 1 MG/ML 1 ML SYRINGE ONE (15:54)
[2016-11-06] MEDS ORDERED: DEXTROSE 50%-WATER 50 ML SYRINGE IVP STA (16:14)
[2016-11-06 16:32] LABS: Glucose,Whole Blood 50 mg/dL (75-99)
[2016-11-06 16:32] LABS: Glucose,Whole Blood 110 mg/dL (75-99)
[2016-11-06 16:32] LABS: Glucose,Whole Blood 51 mg/dL (75-99)
[2016-11-06] MEDS ORDERED: RX INFO: IV CONTRAST WAS GIVEN 1 EACH MISC MISCELLANE PRN (16:50)
[2016-11-06] MEDS ORDERED: SODIUM CHLORIDE 0.9% 1,000 ML IV SCH (17:00)
[2016-11-06 17:22] LABS: Glucose,Whole Blood 69 mg/dL (75-99)
[2016-11-06 17:38] LABS: Glucose,Whole Blood 84 mg/dL (75-99)
[2016-11-06] MEDS: INSULIN LISPRO (humaLOG) 300 UNIT/3 ML VIAL SQ PRN (17:52)
[2016-11-06] MEDS: HEPARIN SODIUM,PORCINE/D5W PMX 25,000 UNIT in DEXTROSE/WATER 1 500ML.BAG IV SCH (18:49)
--- NOTE | 2016-11-06 19:06 | PN ---
Mrs. Red underwent a cardiac cath performed by Dr. Menendez today. I reviewed the films. The patient has moderate diffuse disease, but the mid circumflex has a very eccentric 80% stenosis which appears to be the most significant lesion. She was advised intervention but I explained to the patient and her that she is status post renal transplantation 11 years ago with a creatinine of about 1.6 and GFR in the range of 30 to 35. Given this we will not do an intervention today. Instead we will give 48 hours of hydration, and repeat kidney function tests on Wednesday and perform intervention Wednesday if the creatinine is stable. Poor patient and her understood the rationale and are agreeable to wait. We will therefore get a BUN and creatinine on Wednesday morning and hydrate her at 75 mL normal saline until then. Sheath will be pulled and manual pressure will be applied.
[2016-11-06 20:43] LABS: Glucose,Whole Blood 91 mg/dL (75-99)
[2016-11-06] MEDS: hydrALAZINE HCL 20 MG/ML 1 ML VIAL IVP PRN ×2 (20:44→23:17)
[2016-11-06] MEDS: HYDROcodone/APAP 5-325MG 1 EACH TAB PO PRN (23:20)
--- NOTE | 2016-11-07 00:16 | P.PCN ---
Date of Procedure: 11/06/16 Preoperative Diagnosis: Chest pain and positive stress test Postoperative Diagnosis: Critical lesion in the circumflex. Moderate disease in the LAD and diagonal. Patent stent in the RCA Procedure(s) Performed: Left heart catheterization without left ventriculography Description of Procedure: HISTORY: This 66-year-old female with history of previous kidney transplantation and chronic renal failure and also known ischemic heart disease with previous stent placement was admitted to the hospital with complaints of palpitation and chest pain. Her cardiac enzymes studies are not size to acute myocardial infarction. Patient had a nuclear stress test which showed ischemia in the apical and lateral segments. Patient is advised to have a cardiac catheterization for definitive diagnosis CONSENT:I have discussed the risks, benefits and alternative therapies for the above-mentioned procedure and for both sedation/analgesia as well as necessary blood product administration, if indicated, as they pertain to this patient. The patient has indicated understanding and acceptance of the risks and procedures discussed. PROCEDURE: Patient was brought to the lab in a fasting state. Patient was given some IV sedation. The right groin is infiltrated with lidocaine and right femoral artery was entered using Seldinger technique. A 6-English catheter was left in place and selective coronary arteriography a was performed. Patient tolerated the procedure well. Patient was found to have critical lesion in the circumflex with moderate disease in the LAD and diagonal. Patient was evaluated by NAINA Ahmadi for stent placement of the circumflex. However because of her renal failure and also previous kidney transplantation, it was recommended that patient wait for 48 hours before proceeding with the stent placement of the circumflex. Dr. NAINA Ahmadi expended to patient and family. HEMODYNAMICS: SELECTIVE CORONARY ARTERIOGRAPHY: LEFT MAIN: Normal length and calcified THE LEFT ANTERIOR DESCENDING CORONARY ARTERY: The LAD is calcified throughout its length with a diffuse plaque. He did use ice to moderate diagonal branch. The ostium of the diagonal branch has about 50-60% lesion. The mid LAD also has 50-60% lesion. There is also diffuse plaque in the LAD. THE LEFT CIRCUMFLEX AND IS CORONARY ARTERY:This is a fair caliber vessel giving rise to small first OM branch. The circumflex has a tortuous course. There is about 80% lesion in the midcircumflex THE RIGHT CORONARY ARTERY: This is a good caliber vessel and dominant giving rise to PDA and PLV branches. The proximal LAD has a stent which seemed to be patent LEFT VENTRICULOGRAPHY: Not performed FINAL IMPRESSION: Diffuse coronary artery disease with patent stent in the RCA, critical lesion in mid circumflex and moderate diffuse plaque in the LAD and diagonal PLAN: Stent placement of the circumflex and continue maximal medical therapy. PROGNOSIS:
[2016-11-07] MEDS: HEPARIN SODIUM,PORCINE 5,000 UNIT/ML 1 ML VIAL IV PRN (01:44)
[2016-11-07 03:36] LABS: Glucose,Whole Blood 156 mg/dL (75-99)
[2016-11-07 05:48] LABS: Glucose,Whole Blood 112 mg/dL (75-99)
[2016-11-07] MEDS: SODIUM CHLORIDE 0.9% 1,000 ML IV SCH (06:43)
[2016-11-07] MEDS: INSULIN PUMP MEAL BOLUS 1 UNIT MISC MISCELLANE SCH ×4 (06:47→21:51)
[2016-11-07] MEDS: MYCOPHENOLATE MOFETIL 500 MG TAB PO SCH ×2 (08:01→22:49)
[2016-11-07] MEDS: MYCOPHENOLATE MOFETIL 250 MG CAP PO SCH ×2 (08:02→22:49)
[2016-11-07] MEDS: FUROSEMIDE 20 MG TAB PO SCH (08:03)
[2016-11-07] MEDS: predniSONE 5 MG TAB PO SCH (08:03)
[2016-11-07] MEDS: ATENOLOL 50 MG TAB PO SCH (08:03)
[2016-11-07] MEDS: ASPIRIN 325 MG TAB PO SCH (08:03)
[2016-11-07] MEDS: FAMOTIDINE 20 MG TAB PO SCH (08:03)
[2016-11-07] MEDS: TACROLIMUS 1 MG CAP PO SCH ×2 (08:03→21:51)
[2016-11-07] MEDS: ATORVASTATIN 80 MG TAB PO SCH (08:03)
[2016-11-07 08:55] LABS: Basophils % (A) 0 %; CH 29.2; CHCM 30.3; Eosinophils # (A) 0.2 k/uL (0-0.7); Eosinophils % (A) 2 %; HCT 34.5 % (34.0-46.0); HDW 2.57; HGB 10.5 gm/dL (11.4-16.0); Hypochromasia Moderate; Luc # (Auto) 0.26; Luc % (Auto) 4; Lymphocytes # (A) 1.6 k/uL (1.0-4.8); Lymphocytes % (A) 25 %; MCH 29.6 pg (25.0-35.0); MCHC 30.6 g/dL (31.0-37.0); MCV 96.8 fL (80.0-100.0); Mean Platelet Volume 7.2; Monocytes # (A) 0.4 k/uL (0-1.0); Monocytes % (A) 6 %; Neutrophils # (A) 4.1 k/uL (1.3-7.7); Neutrophils % (A) 63 %; RBC 3.56 m/uL (3.80-5.40); RDW 13.9 % (11.5-15.5); WBC 6.5 k/uL (3.8-10.6); WBC (Perox) 6.39
[2016-11-07 08:58] LABS: Potassium 4.5 mmol/L (3.5-5.1)
--- NOTE | 2016-11-07 09:07 | P.PN ---
Subjective Patient is seen in follow-up for renal transplant management and chronic kidney disease. She is chronic kidney disease stage III with baseline creatinine near 1.6. She presented with chest pain and underwent a cardiac catheterization on November 06. She was found to have diffuse coronary artery disease and had a stent placed to her circumflex. She did receive IV hydration with 0.9 saline running at 75 mL an hour. Her creatinine today is stable at 1.49. Denies any active chest pain or shortness of breath. Admits to good urine output. No vomiting or diarrhea. Vital signs are stable. General: The patient appeared well nourished and normally developed. HEENT: Head exam is unremarkable. Neck is without jugular venous distension. LUNGS: Lungs are clear to auscultation and percussion. Breath sounds decreased. HEART: Rate and Rhythm are regular. First and second heart sounds normal. No murmurs, rubs or gallops. ABDOMEN: Abdominal exam reveals normal bowel sounds. Non-tender and non- distended. No evidence of peritonitis. EXTREMITITES: Trace edema. Objective - Vital Signs Vital signs: Vital Signs Temp 97.8 F 11/07/16 03:35 Pulse 79 11/07/16 03:35 Resp 18 11/07/16 03:35 BP 152/70 11/07/16 03:35 Pulse Ox 95 11/07/16 03:35 Intake & Output 11/06/16 11/07/16 11/07/16 18:59 06:59 18:59 Intake Total 166.942 137.265 180 Output Total 1100 1150 Balance -933.058 -1012.735 180 Weight 100.2 kg 100.1 kg Intake: Intake, IV Titration 166.942 137.265 Amount Heparin Sodium,Porcine/ 166.942 137.265 D5w Pmx 25,000 unit In Dextrose/Water 1 500ml. bag @ 10.255 UNITS/KG/HR 20 mls/hr IV .Q24H [facility] Rx #:[id number] Oral 180 Output: Urine 1100 1150 Other: # Voids 1 - Labs CBC & Chem 7: 11/07/16 08:32 11/07/16 08:32 Labs: Abnormal Lab Results - Last 24 Hours (Table) 11/06/16 11/06/16 11/06/16 Range/Units 11:43 16:04 16:06 RBC (3.80-5.40) m/uL Hgb (11.4-16.0) gm/dL MCHC (31.0-37.0) g/dL APTT (22.0-30.0) sec Chloride (98-107) mmol/L BUN (7-17) mg/dL Creatinine (0.52-1.04) mg/dL Glucose (74-99) mg/dL POC Glucose (mg/dL) 202 H 51 L 50 L (75-99) mg/dL 11/06/16 11/06/16 11/07/16 Range/Units 16:22 17:14 00:50 RBC (3.80-5.40) m/uL Hgb (11.4-16.0) gm/dL MCHC (31.0-37.0) g/dL APTT 30.2 H (22.0-30.0) sec Chloride (98-107) mmol/L BUN (7-17) mg/dL Creatinine (0.52-1.04) mg/dL Glucose (74-99) mg/dL POC Glucose (mg/dL) 110 H 69 L (75-99) mg/dL 11/07/16 11/07/16 11/07/16 Range/Units 03:20 05:47 08:32 RBC 3.56 L (3.80-5.40) m/uL Hgb 10.5 L (11.4-16.0) gm/dL MCHC 30.6 L (31.0-37.0) g/dL APTT (22.0-30.0) sec Chloride (98-107) mmol/L BUN (7-17) mg/dL Creatinine (0.52-1.04) mg/dL Glucose (74-99) mg/dL POC Glucose (mg/dL) 156 H 112 H (75-99) mg/dL 11/07/16 11/07/16 Range/Units 08:32 08:32 RBC (3.80-5.40) m/uL Hgb (11.4-16.0) gm/dL MCHC (31.0-37.0) g/dL APTT 46.7 H (22.0-30.0) sec Chloride 108 H (98-107) mmol/L BUN 28 H (7-17) mg/dL Creatinine 1.49 H (0.52-1.04) mg/dL Glucose 140 H (74-99) mg/dL POC Glucose (mg/dL) (75-99) mg/dL
[2016-11-07] MEDS ORDERED: ACETAMINOPHEN TAB 325 MG TAB PO PRN (09:18)
--- NOTE | 2016-11-07 11:01 | P.PN ---
Subjective This is a 66-year-old pleasant female patient of Dr. Cordova , she has underlying past medical history for diabetes mellitus on insulin pump, CAD, GERD , hyperlipidemia, hypertension, end-stage renal disease status post renal transplant [address] [facility] and follows every 6 months. In fact, patient had an appointment today to see her renal doctor the [facility]. She states she got up this morning and she had a tightness in her chest. She states she took aspirin and nitroglycerin and the chest pain went away but she still had some minimal tightness. She states she's had the same type of pain before but she was not diagnosed with a myocardial infarction. She states her blood pressure has been running about 130/60 at home. Her normal creatinine is 1.5-1.6. She also complains of left shoulder soreness and worsens with range of motion. Patient has had problems with her insulin pump recently is going to have this checked at [facility] today. She states she was having bubbles in the reservoir and she was not using it and using her Lantus and Humalog scale instead. Patient her gives history that they drove family members including grandchildren to the airport yesterday and spent extensive time in the car and the family was leaving for [facility] and this was very stressful for the patient. She presented to [facility] emergency center with the above. BUN 31 and creatinine 1.6. Her blood glucose 199. Initial troponin 0.055. ProBNP 2440. Patient was admitted to the selective care unit and a cardiology consult requested. They have ordered echocardiogram, repeat troponins and heparin drip. We have added in consult with nephrology in case patient needs heart catheterization. 11/06: Patient underwent stress testing which was positive and she is to undergo heart catheterization today. Dr. Hussein is on consult. Her kidney function remains the same. Patient is very anxious and his May questions regarding undergoing heart catheterization with kidney transplant. 11/07: Heart catheterization revealed diffuse coronary artery disease with patent stent in the RCA, critical lesion in the mid circumflex and moderate diffuse plaque in the LAD and diagonal. Plan is to stent circumflex on Wednesday and maximize medical therapy. Patient is followed by nephrology and has been on IV fluids of normal saline at 75 mL per hour and received Mucomyst. Repeat creatinine is at 1.49. Patient states she did have some nausea last night and is having trouble with her chronic back pain. She denies having any chest pain she continues on a heparin drip. She complains of dull ache to her hands and wrist for which warm compresses can be used. Hemoglobin A1c is 7.2. Objective - Vital Signs Vital signs: Vital Signs Temp 97.8 F 11/07/16 03:35 Pulse 79 11/07/16 03:35 Resp 18 11/07/16 03:35 BP 152/70 11/07/16 03:35 Pulse Ox 95 11/07/16 03:35 Intake & Output 11/06/16 11/07/16 11/07/16 18:59 06:59 18:59 Intake Total 166.942 137.265 180 Output Total 1100 1150 Balance -933.058 -1012.735 180 Weight 100.2 kg 100.1 kg Intake: Intake, IV Titration 166.942 137.265 Amount Heparin Sodium,Porcine/ 166.942 137.265 D5w Pmx 25,000 unit In Dextrose/Water 1 500ml. bag @ 10.255 UNITS/KG/HR 20 mls/hr IV .Q24H [facility] Rx #:[id number] Oral 180 Output: Urine 1100 1150 Other: # Voids 1 - Exam Gen: This is a obese 66-year-old female. She is sitting on the edge of the bed appears in no acute distress. HEENT: Head is atraumatic, normocephalic. Pupils equal, round. Sclerae is anicteric. NECK: Supple. No JVD. No lymphadenopathy. No thyromegaly. LUNGS: Clear to auscultation. No wheezes or rhonchi. No intercostal retractions. HEART: Regular rate and rhythm. Systolic murmur. ABDOMEN: Soft. Bowel sounds are present. No masses. No tenderness. EXTREMITIES: 2+ pedal edema. Dorsalis pedis is palpable bilaterally. No calf tenderness. NEUROLOGICAL: Patient is awake, alert and oriented x3. Cranial nerves 2 through 12 are grossly intact. - Labs CBC & Chem 7: 11/07/16 08:32 11/07/16 08:32 Labs: Abnormal Lab Results - Last 24 Hours (Table) 11/06/16 11/06/16 11/06/16 Range/Units 11:43 16:04 16:06 RBC (3.80-5.40) m/uL Hgb (11.4-16.0) gm/dL MCHC (31.0-37.0) g/dL APTT (22.0-30.0) sec Chloride (98-107) mmol/L BUN (7-17) mg/dL Creatinine (0.52-1.04) mg/dL Glucose (74-99) mg/dL POC Glucose (mg/dL) 202 H 51 L 50 L (75-99) mg/dL 11/06/16 11/06/16 11/07/16 Range/Units 16:22 17:14 00:50 RBC (3.80-5.40) m/uL Hgb (11.4-16.0) gm/dL MCHC (31.0-37.0) g/dL APTT 30.2 H (22.0-30.0) sec Chloride (98-107) mmol/L BUN (7-17) mg/dL Creatinine (0.52-1.04) mg/dL Glucose (74-99) mg/dL POC Glucose (mg/dL) 110 H 69 L (75-99) mg/dL 11/07/16 11/07/16 11/07/16 Range/Units 03:20 05:47 08:32 RBC 3.56 L (3.80-5.40) m/uL Hgb 10.5 L (11.4-16.0) gm/dL MCHC 30.6 L (31.0-37.0) g/dL APTT (22.0-30.0) sec Chloride (98-107) mmol/L BUN (7-17) mg/dL Creatinine (0.52-1.04) mg/dL Glucose (74-99) mg/dL POC Glucose (mg/dL) 156 H 112 H (75-99) mg/dL 11/07/16 11/07/16 Range/Units 08:32 08:32 RBC (3.80-5.40) m/uL Hgb (11.4-16.0) gm/dL MCHC (31.0-37.0) g/dL APTT 46.7 H (22.0-30.0) sec Chloride 108 H (98-107) mmol/L BUN 28 H (7-17) mg/dL Creatinine 1.49 H (0.52-1.04) mg/dL Glucose 140 H (74-99) mg/dL POC Glucose (mg/dL) (75-99) mg/dL Assessment and Plan Plan: 1. Chest pain rule out acute coronary syndrome. Continue heparin drip. Cardiology is following. Consult with nephrology appreciated. Patient has been maintained on IV fluids and has received Mucomyst. Continue aspirin 325 mg daily, atenolol 100 mg daily, morphine and Nitrostat. Stress test positive. Stent of the circumflex plan for Wednesday. 3. Post renal transplant. Continue CellCept 750 mg orally twice every day, Prograf 2 mg orally twice every day, prednisone 5 mg orally once every day. 4. Hypertension and hypertensive cardiovascular disease. Continue atenolol 100 mg orally daily 5. Diabetes mellitus type 2. Continue current insulin pump which patient will resume this evening as she has taken Lantus this morning. 6. Hyperlipidemia. On Lipitor 20 mg daily 7. Obesity with possible obstructive sleep apnea. Need sleep study as an outpatient. 8. Chronic kidney disease stage III. Monitor the patient very closely. 9. GERD. Continue Zantac or equivalent. Patient will be admitted to the hospital for a minimum of 2 night stay. Discharge plan: Return home Impression and plan of care have been directed as dictated by the signing physician. Lainey Cameron nurse practitioner acting as scribe for signing physician. Time with Patient: Greater than 30
--- NOTE | 2016-11-07 12:01 | P.PN ---
Subjective Principal diagnosis: Chest pain This is a pleasant 66-year-old female with history of hypertension, diabetes, hyperlipidemia, coronary artery disease with prior stent placements approximately 4 years ago, history of kidney transplant 11 years ago, denies nicotine dependence, drinks red wine occasionally, she states that she got up around 4 AM this morning, she had appointments at [facility], when she developed midsternal chest pressure and heaviness with a pounding sensation in her chest. She took a baby aspirin along with a sublingual nitroglycerin and shortly thereafter the symptoms resolved. While in the car, she again developed pressure in the chest and took a second sublingual nitroglycerin and decided to come to the emergency room for further evaluation. Patient did have mild associated nausea, denies shortness of breath or diaphoresis. Patient had borderline troponin elevation, was scheduled to undergo a Lexiscan stress test which was performed on the , Deysi scan raise the suspicion of stress- induced reversible ischemia involving the apical and apical lateral portion of the myocardium. For this reason she underwent a cardiac catheterization yesterday by Dr. emil Murillo, it revealed diffuse coronary artery disease with a patent stent in the RCA, critical lesion in the mid circumflex. The plan is to proceed with angioplasty and stenting of the circumflex on Wednesday by Dr. Fareed Ahmadi. Creatinine this morning 1.4. Objective - Vital Signs Vital signs: Vital Signs Temp 97.0 F L 11/07/16 08:00 Pulse 73 11/07/16 08:00 Resp 14 11/07/16 08:00 BP 178/79 11/07/16 08:00 Pulse Ox 98 11/07/16 08:00 Intake & Output 11/06/16 11/07/16 11/07/16 18:59 06:59 18:59 Intake Total 166.942 137.265 180 Output Total 1100 1150 Balance -933.058 -1012.735 180 Weight 100.2 kg 100.1 kg Intake: Intake, IV Titration 166.942 137.265 Amount Heparin Sodium,Porcine/ 166.942 137.265 D5w Pmx 25,000 unit In Dextrose/Water 1 500ml. bag @ 10.255 UNITS/KG/HR 20 mls/hr IV .Q24H LAAWNDA Rx #:[id number] Oral 180 Output: Urine 1100 1150 Other: # Voids 1 - Exam PHYSICAL EXAMINATION: HEENT: Head is atraumatic, normocephalic. Pupils equal, round. Neck is supple. There is no elevated jugular venous pressure. HEART EXAMINATION: Heart S1 S2 1 systolic murmur is heard. CHEST EXAMINATION: Lungs are clear to auscultation and precussion. No chest wall tenderness is noted on palpation or with deep breathing. ABDOMEN: Soft, nontender. Bowel sounds are heard. No organomegaly noted. Right groin soft, no evidence of any hematoma. EXTREMITIES: 2+ peripheral pulses with trace evidence of peripheral edema and no calf tenderness noted. NEUROLOGIC patient is awake, alert and oriented -3. - Labs CBC & Chem 7: 11/07/16 08:32 11/07/16 08:32 Labs: Abnormal Lab Results - Last 24 Hours (Table) 11/06/16 11/06/16 11/06/16 Range/Units 16:04 16:06 16:22 RBC (3.80-5.40) m/uL Hgb (11.4-16.0) gm/dL MCHC (31.0-37.0) g/dL APTT (22.0-30.0) sec Chloride (98-107) mmol/L BUN (7-17) mg/dL Creatinine (0.52-1.04) mg/dL Glucose (74-99) mg/dL POC Glucose (mg/dL) 51 L 50 L 110 H (75-99) mg/dL 11/06/16 11/07/16 11/07/16 Range/Units 17:14 00:50 03:20 RBC (3.80-5.40) m/uL Hgb (11.4-16.0) gm/dL MCHC (31.0-37.0) g/dL APTT 30.2 H (22.0-30.0) sec Chloride (98-107) mmol/L BUN (7-17) mg/dL Creatinine (0.52-1.04) mg/dL Glucose (74-99) mg/dL POC Glucose (mg/dL) 69 L 156 H (75-99) mg/dL 11/07/16 11/07/16 11/07/16 Range/Units 05:47 08:32 08:32 RBC 3.56 L (3.80-5.40) m/uL Hgb 10.5 L (11.4-16.0) gm/dL MCHC 30.6 L (31.0-37.0) g/dL APTT (22.0-30.0) sec Chloride 108 H (98-107) mmol/L BUN 28 H (7-17) mg/dL Creatinine 1.49 H (0.52-1.04) mg/dL Glucose 140 H (74-99) mg/dL POC Glucose (mg/dL) 112 H (75-99) mg/dL 11/07/16 Range/Units 08:32 RBC (3.80-5.40) m/uL Hgb (11.4-16.0) gm/dL MCHC (31.0-37.0) g/dL APTT 46.7 H (22.0-30.0) sec Chloride (98-107) mmol/L BUN (7-17) mg/dL Creatinine (0.52-1.04) mg/dL Glucose (74-99) mg/dL POC Glucose (mg/dL) (75-99) mg/dL Assessment and Plan Plan: Assessment and plan #1 chest pain, rule out acute coronary syndrome. EKG shows a normal sinus rhythm with no acute changes. Initial troponin 0.055. #2 accelerated hypertension, blood pressure on arrival 204/101, 166/78 this morning. #3 history of hypertension #4 diabetes #5 hyperlipidemia #6 end-stage renal disease, history of renal transplant 11 years ago. #7 known history of coronary artery disease with prior stent placements 2 approximately 4 years ago, exact details unavailable. #8 chronic back problems #9 status post cardiac catheterization, patient scheduled to undergo angioplasty with stenting of the circumflex on Wednesday. Plan We will continue IV heparin, patient is scheduled for angioplasty and stenting of the circumflex artery on Wednesday. DNP note has been reviewed, I agree with a documented findings and plan of care. Patient was seen and examined.
[2016-11-07] MEDS: HEPARIN SODIUM,PORCINE/D5W PMX 25,000 UNIT in DEXTROSE/WATER 1 500ML.BAG IV SCH ×2 (12:15→21:41)
[2016-11-07 12:16] LABS: Glucose,Whole Blood 127 mg/dL (75-99)
[2016-11-07] MEDS: CHOLECALCIFEROL 1,000 UNIT TAB PO SCH (12:16)
[2016-11-07] MEDS: FERROUS SULFATE 325 MG TAB PO SCH (12:16)
[2016-11-07] MEDS: MULTIVITAMINS, THERA 1 EACH TAB PO SCH (12:16)
[2016-11-07] MEDS: B COMPLEX-VIT C-VIT E-ZINC 1 EACH TAB PO SCH (12:16)
[2016-11-07] MEDS: hydrALAZINE HCL 20 MG/ML 1 ML VIAL IVP PRN ×2 (16:05→23:00)
[2016-11-07 17:19] LABS: Glucose,Whole Blood 138 mg/dL (75-99)
[2016-11-07 20:15] LABS: Glucose,Whole Blood 189 mg/dL (75-99)
[2016-11-07] MEDS: HYDROcodone/APAP 5-325MG 1 EACH TAB PO PRN (21:51)
[2016-11-07] MEDS: ACETYLCYSTEINE 800 MG/4 ML VIAL PO SCH (22:49)
[2016-11-08 05:37] LABS: Glucose,Whole Blood 110 mg/dL (75-99)
[2016-11-08 06:47] LABS: Basophils % (A) 1 %; CH 30.2; CHCM 31.4; Eosinophils # (A) 0.2 k/uL (0-0.7); Eosinophils % (A) 3 %; HCT 34.7 % (34.0-46.0); HDW 2.57; HGB 10.3 gm/dL (11.4-16.0); Hypochromasia Slight; Luc # (Auto) 0.18; Luc % (Auto) 3; Lymphocytes # (A) 1.9 k/uL (1.0-4.8); Lymphocytes % (A) 32 %; MCH 28.6 pg (25.0-35.0); MCHC 29.6 g/dL (31.0-37.0); MCV 96.7 fL (80.0-100.0); Mean Platelet Volume 7.7; Monocytes # (A) 0.7 k/uL (0-1.0); Monocytes % (A) 11 %; Neutrophils % (A) 50 %; RBC 3.59 m/uL (3.80-5.40); RDW 14.2 % (11.5-15.5); WBC 6.1 k/uL (3.8-10.6); WBC (Perox) 6.44
[2016-11-08] MEDS: INSULIN PUMP MEAL BOLUS 1 UNIT MISC MISCELLANE SCH ×4 (06:50→21:26)
[2016-11-08 07:28] LABS: Calcium 9.4 mg/dL (8.4-10.2); Potassium 4.4 mmol/L (3.5-5.1)
[2016-11-08] MEDS: ASPIRIN 325 MG TAB PO SCH (07:37)
[2016-11-08] MEDS: ACETYLCYSTEINE 800 MG/4 ML VIAL PO SCH ×2 (07:37→21:39)
[2016-11-08] MEDS: FUROSEMIDE 20 MG TAB PO SCH (07:38)
[2016-11-08] MEDS: ATORVASTATIN 80 MG TAB PO SCH (07:38)
[2016-11-08] MEDS: MYCOPHENOLATE MOFETIL 250 MG CAP PO SCH ×2 (07:38→21:39)
[2016-11-08] MEDS: predniSONE 5 MG TAB PO SCH (07:38)
[2016-11-08] MEDS: TACROLIMUS 1 MG CAP PO SCH ×2 (07:38→21:39)
[2016-11-08] MEDS: FAMOTIDINE 20 MG TAB PO SCH (07:38)
[2016-11-08] MEDS: ATENOLOL 50 MG TAB PO SCH (07:38)
[2016-11-08] MEDS: MYCOPHENOLATE MOFETIL 500 MG TAB PO SCH ×2 (07:38→21:39)
[2016-11-08] MEDS ORDERED: FUROSEMIDE 10 MG/ML 2 ML VIAL IV STA (09:05)
--- NOTE | 2016-11-08 09:11 | P.PN ---
Subjective Patient is seen in follow-up for renal transplant management and chronic kidney disease. She is chronic kidney disease stage III with baseline creatinine near 1.6. She presented with chest pain and underwent a cardiac catheterization on November 06. She was found to have diffuse coronary artery disease. She did receive IV hydration with 0.9 saline running at 75 mL an hour. Fluids were discontinued on November 07. Creatinine today is elevated at 1.7. Denies any active chest pain or shortness of breath. Admits to good urine output. No vomiting or diarrhea. Does admit to lower extremity swelling and weight gain. Vital signs are stable. General: The patient appeared well nourished and normally developed. HEENT: Head exam is unremarkable. Neck is without jugular venous distension. LUNGS: Lungs are clear to auscultation and percussion. Breath sounds decreased. HEART: Rate and Rhythm are regular. First and second heart sounds normal. No murmurs, rubs or gallops. ABDOMEN: Abdominal exam reveals normal bowel sounds. Non-tender and non- distended. No evidence of peritonitis. EXTREMITITES: Trace edema. Objective - Vital Signs Vital signs: Vital Signs Temp 97 F L 11/08/16 04:00 Pulse 75 11/08/16 04:00 Resp 18 11/08/16 04:00 BP 156/79 11/08/16 04:00 Pulse Ox 97 11/08/16 04:00 Intake & Output 11/07/16 11/08/16 11/08/16 18:59 06:59 18:59 Intake Total 542.735 590 Output Total 450 1350 Balance 92.735 -760 Weight 101.9 kg Intake: IV 40 0.9@10mls/hr 40 Intake, IV Titration 362.735 Amount Heparin Sodium,Porcine/ 362.735 D5w Pmx 25,000 unit In Dextrose/Water 1 500ml. bag @ 10.255 UNITS/KG/HR 20 mls/hr IV .Q24H LAWANDA Rx #:[id number] Oral 180 Other 550 Output: Urine 450 1350 Other: Voiding Method Toilet # Voids 1 - Labs CBC & Chem 7: 11/08/16 05:47 11/08/16 05:47 Labs: Abnormal Lab Results - Last 24 Hours (Table) 11/07/16 11/07/16 11/07/16 Range/Units 11:52 16:51 20:13 RBC (3.80-5.40) m/uL Hgb (11.4-16.0) gm/dL MCHC (31.0-37.0) g/dL APTT (22.0-30.0) sec Sodium (137-145) mmol/L BUN (7-17) mg/dL Creatinine (0.52-1.04) mg/dL POC Glucose (mg/dL) 127 H 138 H 189 H (75-99) mg/dL 11/08/16 11/08/16 11/08/16 Range/Units 05:31 05:47 05:47 RBC 3.59 L (3.80-5.40) m/uL Hgb 10.3 L (11.4-16.0) gm/dL MCHC 29.6 L (31.0-37.0) g/dL APTT (22.0-30.0) sec Sodium 135 L (137-145) mmol/L BUN 24 H (7-17) mg/dL Creatinine 1.70 H (0.52-1.04) mg/dL POC Glucose (mg/dL) 110 H (75-99) mg/dL 11/08/16 Range/Units 05:47 RBC (3.80-5.40) m/uL Hgb (11.4-16.0) gm/dL MCHC (31.0-37.0) g/dL APTT 55.6 H (22.0-30.0) sec Sodium (137-145) mmol/L BUN (7-17) mg/dL Creatinine (0.52-1.04) mg/dL POC Glucose (mg/dL) (75-99) mg/dL Assessment and Plan Plan: Assessment: #1. Status post living related renal allograft at [facility] 11 years ago. #2. Chronic kidney disease stage III with baseline creatinine near 1.6. #3. Coronary artery disease status post cardiac catheterization on November 06. #4. Mild volume overload. #5. Insulin-dependent diabetes mellitus. Plan: I will give her an additional dose of Lasix 20 mg IV once today. Maintain Prograf CellCept and prednisone. Avoid nephrotoxic agents and hypotensive episodes. Patient will need a repeat cardiac catheterization or possibly tomorrow for stent placement. In review of her volume status I will hydrate her with the sodium bicarbonate protocol. She is to receive at 250 mL bolus 1 hour prior to the catheterization which is to be continued at 50 mL an hour for 6 hours prior to catheterization. Fluids her then to be discontinued. I will continue the Mucomyst. Repeat electrolytes in the morning and continue to monitor for contrast-induced nephropathy.
--- NOTE | 2016-11-08 09:32 | P.PN ---
Subjective This is a 66-year-old pleasant female patient of Dr. Cordova , she has underlying past medical history for diabetes mellitus on insulin pump, CAD, GERD , hyperlipidemia, hypertension, end-stage renal disease status post renal transplant 11 years ago at [facility] and follows every 6 months. In fact, patient had an appointment today to see her renal doctor the [facility]. She states she got up this morning and she had a tightness in her chest. She states she took aspirin and nitroglycerin and the chest pain went away but she still had some minimal tightness. She states she's had the same type of pain before but she was not diagnosed with a myocardial infarction. She states her blood pressure has been running about 130/60 at home. Her normal creatinine is 1.5-1.6. She also complains of left shoulder soreness and worsens with range of motion. Patient has had problems with her insulin pump recently is going to have this checked at [facility] today. She states she was having bubbles in the reservoir and she was not using it and using her Lantus and Humalog scale instead. Patient her gives history that they drove family members including grandchildren to the airport yesterday and spent extensive time in the car and the family was leaving for [facility] and this was very stressful for the patient. She presented to [facility] emergency center with the above. BUN 31 and creatinine 1.6. Her blood glucose 199. Initial troponin 0.055. ProBNP 2440. Patient was admitted to the selective care unit and a cardiology consult requested. They have ordered echocardiogram, repeat troponins and heparin drip. We have added in consult with nephrology in case patient needs heart catheterization. 11/06: Patient underwent stress testing which was positive and she is to undergo heart catheterization today. Dr. Hussein is on consult. Her kidney function remains the same. Patient is very anxious and his May questions regarding undergoing heart catheterization with kidney transplant. 11/07: Heart catheterization revealed diffuse coronary artery disease with patent stent in the RCA, critical lesion in the mid circumflex and moderate diffuse plaque in the LAD and diagonal. Plan is to stent circumflex on Wednesday and maximize medical therapy. Patient is followed by nephrology and has been on IV fluids of normal saline at 75 mL per hour and received Mucomyst. Repeat creatinine is at 1.49. Patient states she did have some nausea last night and is having trouble with her chronic back pain. She denies having any chest pain she continues on a heparin drip. She complains of dull ache to her hands and wrist for which warm compresses can be used. Hemoglobin A1c is 7.2. 11/08: patient states that she is not sleeping well and feels very tired. She denies any chest pain or shortness of breath. BUN [address] Johnson is planning for bicarb protocol tomorrow prior to stent placement. Objective - Vital Signs Vital signs: Vital Signs Temp 97 F L 11/08/16 04:00 Pulse 75 11/08/16 04:00 Resp 18 11/08/16 04:00 BP 156/79 11/08/16 04:00 Pulse Ox 97 11/08/16 04:00 Intake & Output 11/07/16 11/08/16 11/08/16 18:59 06:59 18:59 Intake Total 542.735 590 Output Total 450 1350 Balance 92.735 -760 Weight 101.9 kg Intake: IV 40 0.9@10mls/hr 40 Intake, IV Titration 362.735 Amount Heparin Sodium,Porcine/ 362.735 D5w Pmx 25,000 unit In Dextrose/Water 1 500ml. bag @ 10.255 UNITS/KG/HR 20 mls/hr IV .Q24H LAWANDA Rx #:[id number] Oral 180 Other 550 Output: Urine 450 1350 Other: Voiding Method Toilet # Voids 1 - Exam Gen: This is a obese 66-year-old female. She is sitting on the edge of the bed appears in no acute distress. HEENT: Head is atraumatic, normocephalic. Pupils equal, round. Sclerae is anicteric. NECK: Supple. No JVD. No lymphadenopathy. No thyromegaly. LUNGS: Clear to auscultation. No wheezes or rhonchi. No intercostal retractions. HEART: Regular rate and rhythm. Systolic murmur. ABDOMEN: Soft. Bowel sounds are present. No masses. No tenderness. EXTREMITIES: 2+ pedal edema. Dorsalis pedis is palpable bilaterally. No calf tenderness. NEUROLOGICAL: Patient is awake, alert and oriented x3. Cranial nerves 2 through 12 are grossly intact. - Labs CBC & Chem 7: 11/08/16 05:47 11/08/16 05:47 Labs: Abnormal Lab Results - Last 24 Hours (Table) 11/07/16 11/07/16 11/07/16 Range/Units 08:32 08:32 11:52 RBC 3.56 L (3.80-5.40) m/uL Hgb 10.5 L (11.4-16.0) gm/dL MCHC 30.6 L (31.0-37.0) g/dL APTT (22.0-30.0) sec Sodium (137-145) mmol/L Chloride 108 H (98-107) mmol/L BUN 28 H (7-17) mg/dL Creatinine 1.49 H (0.52-1.04) mg/dL Glucose 140 H (74-99) mg/dL POC Glucose (mg/dL) 127 H (75-99) mg/dL 11/07/16 11/07/16 11/08/16 Range/Units 16:51 20:13 05:31 RBC (3.80-5.40) m/uL Hgb (11.4-16.0) gm/dL MCHC (31.0-37.0) g/dL APTT (22.0-30.0) sec Sodium (137-145) mmol/L Chloride (98-107) mmol/L BUN (7-17) mg/dL Creatinine (0.52-1.04) mg/dL Glucose (74-99) mg/dL POC Glucose (mg/dL) 138 H 189 H 110 H (75-99) mg/dL 11/08/16 11/08/16 11/08/16 Range/Units 05:47 05:47 05:47 RBC 3.59 L (3.80-5.40) m/uL Hgb 10.3 L (11.4-16.0) gm/dL MCHC 29.6 L (31.0-37.0) g/dL APTT 55.6 H (22.0-30.0) sec Sodium 135 L (137-145) mmol/L Chloride (98-107) mmol/L BUN 24 H (7-17) mg/dL Creatinine 1.70 H (0.52-1.04) mg/dL Glucose (74-99) mg/dL POC Glucose (mg/dL) (75-99) mg/dL Assessment and Plan Plan: 1. Chest pain rule out acute coronary syndrome. Continue heparin drip. Cardiology is following. Consult with nephrology appreciated. Patient has been maintained on IV fluids and has received Mucomyst. Continue aspirin 325 mg daily, atenolol 100 mg daily, morphine and Nitrostat. Stress test positive. Stent of the circumflex plan for Wednesday. 3. Post renal transplant. Continue CellCept 750 mg orally twice every day, Prograf 2 mg orally twice every day, prednisone 5 mg orally once every day. 4. Hypertension and hypertensive cardiovascular disease. Continue atenolol 100 mg orally daily 5. Diabetes mellitus type 2. Continue current insulin pump which patient will resume this evening as she has taken Lantus this morning. 6. Hyperlipidemia. On Lipitor 20 mg daily 7. Obesity with possible obstructive sleep apnea. Need sleep study as an outpatient. 8. Chronic kidney disease stage III. Monitor the patient very closely. 9. GERD. Continue Zantac or equivalent. Patient will be admitted to the hospital for a minimum of 2 night stay. Discharge plan: Return home Impression and plan of care have been directed as dictated by the signing physician. Lainey Cameron nurse practitioner acting as scribe for signing physician. Time with Patient: Greater than 30
[2016-11-08] MEDS: MULTIVITAMINS, THERA 1 EACH TAB PO SCH (11:51)
[2016-11-08] MEDS: FERROUS SULFATE 325 MG TAB PO SCH (11:51)
[2016-11-08] MEDS: CHOLECALCIFEROL 1,000 UNIT TAB PO SCH (11:51)
[2016-11-08 12:31] LABS: Glucose,Whole Blood 219 mg/dL (75-99)
--- NOTE | 2016-11-08 12:53 | P.PN ---
Subjective Principal diagnosis: Chest pain This is a pleasant 66-year-old female patient with a known CAD, hypertension, and dyslipidemia was experiencing recurrent chest discomfort. She was admitted to the hospital and underwent a stress test which came in to be ischemic. Subsequently she underwent a heart catheterization which showed severe disease involving the left circumflex coronary artery. The patient is known to have kidney transplant and her creatinine was abnormal. The patient is scheduled to undergo PCI of the left circumflex by Dr. NAINA Ahmadi tomorrow. Unfortunately her creatinine today seems to be slightly worse. She is not on any nephrotoxic medication. I am going to DC the Lasix and repeat the kidney function for tomorrow. Objective - Vital Signs Vital signs: Vital Signs Temp 97.4 F L 11/08/16 12:00 Pulse 63 11/08/16 12:00 Resp 16 11/08/16 12:00 BP 142/65 11/08/16 12:00 Pulse Ox 98 11/08/16 12:00 Intake & Output 11/07/16 11/08/16 11/08/16 18:59 06:59 18:59 Intake Total 542.735 590 200 Output Total 450 1350 Balance 92.735 -760 200 Weight 101.9 kg Intake: IV 40 0.9@10mls/hr 40 Intake, IV Titration 362.735 Amount Heparin Sodium,Porcine/ 362.735 D5w Pmx 25,000 unit In Dextrose/Water 1 500ml. bag @ 10.255 UNITS/KG/HR 20 mls/hr IV .Q24H LAWANDA Rx #:[id number] Oral 180 200 Other 550 Output: Urine 450 1350 Other: Voiding Method Toilet # Voids 1 - Constitutional General appearance: Present: no acute distress - Respiratory Respiratory: bilateral: CTA - Cardiovascular Rhythm: regular - Labs CBC & Chem 7: 11/08/16 05:47 11/08/16 05:47 Labs: Abnormal Lab Results - Last 24 Hours (Table) 11/07/16 11/07/16 11/08/16 Range/Units 16:51 20:13 05:31 RBC (3.80-5.40) m/uL Hgb (11.4-16.0) gm/dL MCHC (31.0-37.0) g/dL APTT (22.0-30.0) sec Sodium (137-145) mmol/L BUN (7-17) mg/dL Creatinine (0.52-1.04) mg/dL POC Glucose (mg/dL) 138 H 189 H 110 H (75-99) mg/dL 11/08/16 11/08/16 11/08/16 Range/Units 05:47 05:47 05:47 RBC 3.59 L (3.80-5.40) m/uL Hgb 10.3 L (11.4-16.0) gm/dL MCHC 29.6 L (31.0-37.0) g/dL APTT 55.6 H (22.0-30.0) sec Sodium 135 L (137-145) mmol/L BUN 24 H (7-17) mg/dL Creatinine 1.70 H (0.52-1.04) mg/dL POC Glucose (mg/dL) (75-99) mg/dL 11/08/16 Range/Units 12:19 RBC (3.80-5.40) m/uL Hgb (11.4-16.0) gm/dL MCHC (31.0-37.0) g/dL APTT (22.0-30.0) sec Sodium (137-145) mmol/L BUN (7-17) mg/dL Creatinine (0.52-1.04) mg/dL POC Glucose (mg/dL) 219 H (75-99) mg/dL Assessment and Plan Plan: Assessment #1 CAD #2 chronic kidney disease #3 status post kidney transplant #4 multiple comorbid conditions Plan #1 DC the Lasix #2 continue monitoring the kidney function and electrolytes #3 continue following up with the patient
[2016-11-08] MEDS: B COMPLEX-VIT C-VIT E-ZINC 1 EACH TAB PO SCH (12:56)
[2016-11-08] MEDS: INSULIN LISPRO (humaLOG) 300 UNIT/3 ML VIAL SQ PRN (13:01)
[2016-11-08 17:09] LABS: Glucose,Whole Blood 213 mg/dL (75-99)
[2016-11-08] MEDS: HYDROcodone/APAP 5-325MG 1 EACH TAB PO PRN ×2 (17:16→21:40)
[2016-11-08] MEDS: hydrALAZINE HCL 20 MG/ML 1 ML VIAL IVP PRN ×2 (17:31→21:40)
[2016-11-08 20:08] LABS: Glucose,Whole Blood 158 mg/dL (75-99)
[2016-11-08] MEDS: ALPRAZolam 0.5 MG TAB PO PRN (21:38)
[2016-11-09 02:12] LABS: Glucose,Whole Blood 148 mg/dL (75-99)
[2016-11-09] MEDS: HYDROcodone/APAP 5-325MG 1 EACH TAB PO PRN ×3 (04:31→20:42)
[2016-11-09] MEDS: hydrALAZINE HCL 20 MG/ML 1 ML VIAL IVP PRN ×2 (04:32→21:58)
[2016-11-09 06:02] LABS: Basophils # (A) 0.1 k/uL (0-0.2); Basophils % (A) 1 %; CH 29.9; CHCM 31.8; Eosinophils # (A) 0.2 k/uL (0-0.7); Eosinophils % (A) 3 %; HCT 33.3 % (34.0-46.0); HDW 2.61; HGB 10.4 gm/dL (11.4-16.0); Luc # (Auto) 0.18; Luc % (Auto) 3; Lymphocytes # (A) 1.4 k/uL (1.0-4.8); Lymphocytes % (A) 20 %; MCH 29.4 pg (25.0-35.0); MCHC 31.1 g/dL (31.0-37.0); MCV 94.6 fL (80.0-100.0); Mean Platelet Volume 7.7; Monocytes # (A) 0.6 k/uL (0-1.0); Monocytes % (A) 8 %; Neutrophils # (A) 4.8 k/uL (1.3-7.7); Neutrophils % (A) 66 %; RBC 3.52 m/uL (3.80-5.40); RDW 14.2 % (11.5-15.5); WBC 7.3 k/uL (3.8-10.6); WBC (Perox) 7.66
[2016-11-09 06:14] LABS: Calcium 9.4 mg/dL (8.4-10.2); Potassium 4.2 mmol/L (3.5-5.1)
[2016-11-09 06:38] LABS: Glucose,Whole Blood 157 mg/dL (75-99)
[2016-11-09] MEDS: INSULIN PUMP MEAL BOLUS 1 UNIT MISC MISCELLANE SCH ×4 (06:41→20:36)
[2016-11-09] MEDS: ASPIRIN 325 MG TAB PO SCH ×2 (06:42→06:43)
[2016-11-09] MEDS: ATORVASTATIN 80 MG TAB PO SCH (06:43)
[2016-11-09] MEDS: predniSONE 5 MG TAB PO SCH (06:43)
[2016-11-09] MEDS: ATENOLOL 50 MG TAB PO SCH (06:43)
[2016-11-09] MEDS: MYCOPHENOLATE MOFETIL 250 MG CAP PO SCH ×2 (06:44→20:35)
[2016-11-09] MEDS: TACROLIMUS 1 MG CAP PO SCH ×2 (06:44→20:35)
[2016-11-09] MEDS: MYCOPHENOLATE MOFETIL 500 MG TAB PO SCH ×2 (06:44→20:35)
[2016-11-09] MEDS: FAMOTIDINE 20 MG TAB PO SCH (06:44)
[2016-11-09] MEDS ORDERED: DEXTROSE 5% IN WATER 1,000 ML with SODIUM BICARB (1 MEQ/ML) 150 ML IV ONE (09:00)
[2016-11-09] MEDS ORDERED: DEXTROSE 5% IN WATER 300 ML IV ONE (10:00)
[2016-11-09] MEDS ORDERED: ONDANSETRON 4 MG/2 ML VIAL IVP PRN (11:11)
[2016-11-09 11:39] LABS: Glucose,Whole Blood 186 mg/dL (75-99)
[2016-11-09] MEDS: MULTIVITAMINS, THERA 1 EACH TAB PO SCH (12:29)
[2016-11-09] MEDS: CHOLECALCIFEROL 1,000 UNIT TAB PO SCH (12:29)
[2016-11-09] MEDS: FERROUS SULFATE 325 MG TAB PO SCH (12:29)
[2016-11-09] MEDS: B COMPLEX-VIT C-VIT E-ZINC 1 EACH TAB PO SCH (12:30)
--- NOTE | 2016-11-09 12:36 | P.PN ---
Subjective This is a 66-year-old pleasant female patient of Dr. Cordova , she has underlying past medical history for diabetes mellitus on insulin pump, CAD, GERD , hyperlipidemia, hypertension, end-stage renal disease status post renal transplant 11 years ago at [facility] and follows every 6 months. In fact, patient had an appointment today to see her renal doctor the [facility]. She states she got up this morning and she had a tightness in her chest. She states she took aspirin and nitroglycerin and the chest pain went away but she still had some minimal tightness. She states she's had the same type of pain before but she was not diagnosed with a myocardial infarction. She states her blood pressure has been running about 130/60 at home. Her normal creatinine is 1.5-1.6. She also complains of left shoulder soreness and worsens with range of motion. Patient has had problems with her insulin pump recently is going to have this checked at [facility] today. She states she was having bubbles in the reservoir and she was not using it and using her Lantus and Humalog scale instead. Patient her gives history that they drove family members including grandchildren to the airport yesterday and spent extensive time in the car and the family was leaving for [place] and this was very stressful for the patient. She presented to [facility] emergency center with the above. BUN 31 and creatinine 1.6. Her blood glucose 199. Initial troponin 0.055. ProBNP 2440. Patient was admitted to the selective care unit and a cardiology consult requested. They have ordered echocardiogram, repeat troponins and heparin drip. We have added in consult with nephrology in case patient needs heart catheterization. 11/06: Patient underwent stress testing which was positive and she is to undergo heart catheterization today. Dr. Hussein is on consult. Her kidney function remains the same. Patient is very anxious and his May questions regarding undergoing heart catheterization with kidney transplant. 11/07: Heart catheterization revealed diffuse coronary artery disease with patent stent in the RCA, critical lesion in the mid circumflex and moderate diffuse plaque in the LAD and diagonal. Plan is to stent circumflex on Wednesday and maximize medical therapy. Patient is followed by nephrology and has been on IV fluids of normal saline at 75 mL per hour and received Mucomyst. Repeat creatinine is at 1.49. Patient states she did have some nausea last night and is having trouble with her chronic back pain. She denies having any chest pain she continues on a heparin drip. She complains of dull ache to her hands and wrist for which warm compresses can be used. Hemoglobin A1c is 7.2. 11/08: patient states that she is not sleeping well and feels very tired. She denies any chest pain or shortness of breath. BUN [address] Johnson is planning for bicarb protocol tomorrow prior to stent placement. 11/09: Abdomen is increased to 1.9 today. She denies any chest pain but she does have significant nausea which she states she thinks is due to taking her medications on an empty stomach. She also is having significant back pain and is unable to comfortable in the bed. Objective - Vital Signs Vital signs: Vital Signs Temp 96 F L 11/09/16 08:00 Pulse 66 11/09/16 08:00 Resp 18 11/09/16 08:00 BP 145/65 11/09/16 08:00 Pulse Ox 98 11/09/16 08:00 Intake & Output 11/08/16 11/09/16 11/09/16 18:59 06:59 18:59 Intake Total 200 580 Balance 200 580 Weight 102.8 kg Intake: Oral 200 580 Other: Voiding Method Toilet # Voids 2 - Exam Gen: This is a obese 66-year-old female. She is sitting on the edge of the bed appears in no acute distress. HEENT: Head is atraumatic, normocephalic. Pupils equal, round. Sclerae is anicteric. NECK: Supple. No JVD. No lymphadenopathy. No thyromegaly. LUNGS: Clear to auscultation. No wheezes or rhonchi. No intercostal retractions. HEART: Regular rate and rhythm. Systolic murmur. ABDOMEN: Soft. Bowel sounds are present. No masses. No tenderness. EXTREMITIES: 2+ pedal edema. Dorsalis pedis is palpable bilaterally. No calf tenderness. NEUROLOGICAL: Patient is awake, alert and oriented x3. Cranial nerves 2 through 12 are grossly intact. - Labs CBC & Chem 7: 11/09/16 05:35 11/09/16 05:35 Labs: Abnormal Lab Results - Last 24 Hours (Table) 11/08/16 11/08/16 11/08/16 Range/Units 12:19 17:02 20:07 RBC (3.80-5.40) m/uL Hgb (11.4-16.0) gm/dL Hct (34.0-46.0) % APTT (22.0-30.0) sec Sodium (137-145) mmol/L BUN (7-17) mg/dL Creatinine (0.52-1.04) mg/dL Glucose (74-99) mg/dL POC Glucose (mg/dL) 219 H 213 H 158 H (75-99) mg/dL 11/09/16 11/09/16 11/09/16 Range/Units 02:10 05:35 05:35 RBC 3.52 L (3.80-5.40) m/uL Hgb 10.4 L (11.4-16.0) gm/dL Hct 33.3 L (34.0-46.0) % APTT (22.0-30.0) sec Sodium 134 L (137-145) mmol/L BUN 31 H (7-17) mg/dL Creatinine 1.94 H (0.52-1.04) mg/dL Glucose 121 H (74-99) mg/dL POC Glucose (mg/dL) 148 H (75-99) mg/dL 11/09/16 11/09/16 Range/Units 05:35 06:37 RBC (3.80-5.40) m/uL Hgb (11.4-16.0) gm/dL Hct (34.0-46.0) % APTT 40.7 H (22.0-30.0) sec Sodium (137-145) mmol/L BUN (7-17) mg/dL Creatinine (0.52-1.04) mg/dL Glucose (74-99) mg/dL POC Glucose (mg/dL) 157 H (75-99) mg/dL Assessment and Plan Plan: 1. Chest pain rule out acute coronary syndrome. Continue heparin drip. Cardiology is following. Consult with nephrology appreciated. Patient has been maintained on IV fluids and has received Mucomyst. Continue aspirin 325 mg daily, atenolol 100 mg daily, morphine and Nitrostat. Stress test positive. Stent of the circumflex plan for Wednesday. 3. Post renal transplant. Continue CellCept 750 mg orally twice every day, Prograf 2 mg orally twice every day, prednisone 5 mg orally once every day. 4. Hypertension and hypertensive cardiovascular disease. Continue atenolol 100 mg orally daily 5. Diabetes mellitus type 2. Continue current insulin pump which patient will resume this evening as she has taken Lantus this morning. 6. Hyperlipidemia. On Lipitor 20 mg daily 7. Obesity with possible obstructive sleep apnea. Need sleep study as an outpatient. 8. Chronic kidney disease stage III. Monitor the patient very closely. 9. GERD. Continue Zantac or equivalent. Patient will be admitted to the hospital for a minimum of 2 night stay. Discharge plan: Return home Impression and plan of care have been directed as dictated by the signing physician. Lainey Cameron nurse practitioner acting as scribe for signing physician. Time with Patient: Greater than 30
--- NOTE | 2016-11-09 15:55 | P.PN ---
Subjective Principal diagnosis: Chest pain This is a pleasant 66-year-old female with history of hypertension, diabetes, hyperlipidemia, coronary artery disease with prior stent placements approximately 4 years ago, history of kidney transplant 11 years ago, denies nicotine dependence, drinks red wine occasionally, she states that she got up around 4 AM this morning, she had appointments at [facility], when she developed midsternal chest pressure and heaviness with a pounding sensation in her chest. She took a baby aspirin along with a sublingual nitroglycerin and shortly thereafter the symptoms resolved. While in the car, she again developed pressure in the chest and took a second sublingual nitroglycerin and decided to come to the emergency room for further evaluation. Patient did have mild associated nausea, denies shortness of breath or diaphoresis. Patient ruled in for non-Q-wave myocardial infarction, underwent a stress test which came back to be positive for reversible ischemia and subsequently underwent cardiac catheterization which revealed a critical lesion in the circumflex with moderate disease in the LAD and diagonal. Patent stent in the RCA. Originally patient was scheduled to undergo intervention today, however the creatinine today is up to 1.9. Patient has been stable from a cardiac perspective, hemodynamically stable. Denies any chest pain. Dr. Fareed Ahmadi did have a discussion today with Dr. Menendez and the decision was made to defer intervention for at least 2 weeks to get the kidneys stabilized. This was also discussed with bear Allan for nephrology today. Plan of care was discussed with the patient and her in detail and they are in agreement. I'll, patient was quite nauseated today, denied any chest pain, decreased appetite. Objective - Vital Signs Vital signs: Vital Signs Temp 96 F L 11/09/16 08:00 Pulse 66 11/09/16 08:00 Resp 18 11/09/16 08:00 BP 145/65 11/09/16 08:00 Pulse Ox 98 11/09/16 08:00 Intake & Output 11/08/16 11/09/16 11/09/16 18:59 06:59 18:59 Intake Total 200 580 Balance 200 580 Weight 102.8 kg Intake: Oral 200 580 Other: Voiding Method Toilet # Voids 2 - Exam PHYSICAL EXAMINATION: HEENT: Head is atraumatic, normocephalic. Pupils equal, round. Neck is supple. There is no elevated jugular venous pressure. HEART EXAMINATION: Heart S1 S2 1 systolic murmur is heard. CHEST EXAMINATION: Lungs are clear to auscultation and precussion. No chest wall tenderness is noted on palpation or with deep breathing. ABDOMEN: Soft, nontender. Bowel sounds are heard. No organomegaly noted. Right groin soft, no evidence of any hematoma. EXTREMITIES: 2+ peripheral pulses with trace evidence of peripheral edema and no calf tenderness noted. NEUROLOGIC patient is awake, alert and oriented -3. - Labs CBC & Chem 7: 11/09/16 05:35 11/09/16 05:35 Labs: Abnormal Lab Results - Last 24 Hours (Table) 11/08/16 11/08/16 11/09/16 Range/Units 17:02 20:07 02:10 RBC (3.80-5.40) m/uL Hgb (11.4-16.0) gm/dL Hct (34.0-46.0) % APTT (22.0-30.0) sec Sodium (137-145) mmol/L BUN (7-17) mg/dL Creatinine (0.52-1.04) mg/dL Glucose (74-99) mg/dL POC Glucose (mg/dL) 213 H 158 H 148 H (75-99) mg/dL 11/09/16 11/09/16 11/09/16 Range/Units 05:35 05:35 05:35 RBC 3.52 L (3.80-5.40) m/uL Hgb 10.4 L (11.4-16.0) gm/dL Hct 33.3 L (34.0-46.0) % APTT 40.7 H (22.0-30.0) sec Sodium 134 L (137-145) mmol/L BUN 31 H (7-17) mg/dL Creatinine 1.94 H (0.52-1.04) mg/dL Glucose 121 H (74-99) mg/dL POC Glucose (mg/dL) (75-99) mg/dL 11/09/16 11/09/16 Range/Units 06:37 11:13 RBC (3.80-5.40) m/uL Hgb (11.4-16.0) gm/dL Hct (34.0-46.0) % APTT (22.0-30.0) sec Sodium (137-145) mmol/L BUN (7-17) mg/dL Creatinine (0.52-1.04) mg/dL Glucose (74-99) mg/dL POC Glucose (mg/dL) 157 H 186 H (75-99) mg/dL Assessment and Plan Plan: Assessment and plan #1 ACS #2 accelerated hypertension, blood pressure on arrival 204/101, 166/78 this morning. #3 history of hypertension #4 diabetes #5 hyperlipidemia #6 end-stage renal disease, history of renal transplant 11 years ago. #7 known history of coronary artery disease with prior stent placements 2 approximately 4 years ago, exact details unavailable. #8 chronic back problems #9 status post cardiac catheterization, patient originally scheduled to undergo angioplasty with stenting of the circumflex today. Plan From cardiology's perspective, we will maximize the patient's medical therapy, moved the intervention time to approximately [address] to optimize the patient's kidneys. This was discussed with the patient, her , nephrology, in detail. DNP note has been reviewed, I agree with a documented findings and plan of care. Patient was seen and examined.
[2016-11-09] MEDS: HEPARIN SODIUM,PORCINE/D5W PMX 25,000 UNIT in DEXTROSE/WATER 1 500ML.BAG IV SCH (16:02)
--- NOTE | 2016-11-09 16:36 | P.PN ---
Subjective This is a 6-year-old patient with kidney transplant who came in because of chest pain and had a cardiac catheterization. She now has an increasing creatinine from a baseline of 1.6-1.9 and is deemed to be secondary to Acute kidney injury secondary to cardiac catheterization on 11/06/2016. This morning as she's been having some nausea vomiting small amounts about 3 times. No diarrhea no abdominal pain fever chills cough shortness of breath or chest pain She is otherwise stable. Urinary habits are unremarkable. She has chronic back pain for which she has had spinal blocks in the past all trend out much relief and wants escalation of her pain. Medications Objective - Vital Signs Vital signs: Vital Signs Temp 96 F L 11/09/16 08:00 Pulse 66 11/09/16 08:00 Resp 18 11/09/16 08:00 BP 145/65 11/09/16 08:00 Pulse Ox 98 11/09/16 08:00 Intake & Output 11/08/16 11/09/16 11/09/16 18:59 06:59 18:59 Intake Total 200 580 Balance 200 580 Weight 102.8 kg Intake: Oral 200 580 Other: Voiding Method Toilet # Voids 2 On examination she is awake alert oriented. HEENT exam no JVP neck is supple no facial asymmetry Lungs are clear to auscultation percussion good air entry bilaterally. Heart sounds are unremarkable no murmur rub gallop. Extremity exam was trace edema Warm to touch Neurologically awake alert oriented no focal motor deficit. No evidence of any cholesterol embolization - Labs CBC & Chem 7: 11/09/16 05:35 11/09/16 05:35 Labs: Abnormal Lab Results - Last 24 Hours (Table) 11/08/16 11/08/16 11/09/16 Range/Units 17:02 20:07 02:10 RBC (3.80-5.40) m/uL Hgb (11.4-16.0) gm/dL Hct (34.0-46.0) % APTT (22.0-30.0) sec Sodium (137-145) mmol/L BUN (7-17) mg/dL Creatinine (0.52-1.04) mg/dL Glucose (74-99) mg/dL POC Glucose (mg/dL) 213 H 158 H 148 H (75-99) mg/dL 11/09/16 11/09/16 11/09/16 Range/Units 05:35 05:35 05:35 RBC 3.52 L (3.80-5.40) m/uL Hgb 10.4 L (11.4-16.0) gm/dL Hct 33.3 L (34.0-46.0) % APTT 40.7 H (22.0-30.0) sec Sodium 134 L (137-145) mmol/L BUN 31 H (7-17) mg/dL Creatinine 1.94 H (0.52-1.04) mg/dL Glucose 121 H (74-99) mg/dL POC Glucose (mg/dL) (75-99) mg/dL 11/09/16 11/09/16 Range/Units 06:37 11:13 RBC (3.80-5.40) m/uL Hgb (11.4-16.0) gm/dL Hct (34.0-46.0) % APTT (22.0-30.0) sec Sodium (137-145) mmol/L BUN (7-17) mg/dL Creatinine (0.52-1.04) mg/dL Glucose (74-99) mg/dL POC Glucose (mg/dL) 157 H 186 H (75-99) mg/dL Assessment and Plan Plan: Impression 1. Acute kidney injury from likely dye toxicity. Cardiac catheterization 11/06, creatinine started going up from 1.4-1.9 today. Good urine output 4 expected to recover. 2. History of kidney transplant from an unknown related living donor approximately 11 years ago at the [facility] on immunosuppression with CellCept 750 twice a day and Prograf 2 mg twice a day and prednisone 5 mg a day stable 3 chest pain and unstable angina currently asymptomatic status post cardiac catheterization. Recommendation. Agree with holding off any further intervention cardiologically unless it is urgency. Expect creatinine to improve hopefully in the next 24-48 hours. If her creatinine is stable at the cardiology wants to discharge her it'll be satisfactory from nephrology perspective. We can follow her creatinine and the office on a daily basis. In the meantime will maintain the immunosuppressive medication. Will check Prograf level
[2016-11-09 16:44] LABS: Glucose,Whole Blood 195 mg/dL (75-99)
[2016-11-09 20:31] LABS: Glucose,Whole Blood 169 mg/dL (75-99)
[2016-11-09] MEDS: ALPRAZolam 0.5 MG TAB PO PRN (20:42)
[2016-11-10 05:46] LABS: Glucose,Whole Blood 129 mg/dL (75-99)
[2016-11-10] MEDS: hydrALAZINE HCL 20 MG/ML 1 ML VIAL IVP PRN (06:10)
[2016-11-10 06:38] LABS: Basophils % (A) 0 %; CH 29.8; CHCM 31.9; Eosinophils # (A) 0.1 k/uL (0-0.7); Eosinophils % (A) 2 %; HCT 32.7 % (34.0-46.0); HDW 2.53; HGB 10.2 gm/dL (11.4-16.0); Luc # (Auto) 0.17; Luc % (Auto) 3; Lymphocytes # (A) 0.8 k/uL (1.0-4.8); Lymphocytes % (A) 14 %; MCH 29.3 pg (25.0-35.0); MCHC 31.3 g/dL (31.0-37.0); MCV 93.8 fL (80.0-100.0); Mean Platelet Volume 7.7; Monocytes # (A) 0.7 k/uL (0-1.0); Monocytes % (A) 13 %; Neutrophils # (A) 3.9 k/uL (1.3-7.7); Neutrophils % (A) 69 %; RBC 3.49 m/uL (3.80-5.40); RDW 14.2 % (11.5-15.5); WBC 5.7 k/uL (3.8-10.6); WBC (Perox) 6.44
[2016-11-10 06:41] LABS: Calcium 9.6 mg/dL (8.4-10.2); Potassium 5.1 mmol/L (3.5-5.1)
[2016-11-10] MEDS: INSULIN PUMP MEAL BOLUS 1 UNIT MISC MISCELLANE SCH (06:47)
[2016-11-10 08:24] VITALS: RESP 16
[2016-11-10] MEDS ORDERED: ASPIRIN 81 MG CHEW PO SCH (09:00)
[2016-11-10] MEDS: FAMOTIDINE 20 MG TAB PO SCH (09:28)
[2016-11-10] MEDS: MYCOPHENOLATE MOFETIL 500 MG TAB PO SCH (09:28)
[2016-11-10] MEDS: ATORVASTATIN 80 MG TAB PO SCH (09:28)
[2016-11-10] MEDS: HYDROcodone/APAP 5-325MG 1 EACH TAB PO PRN (09:29)
[2016-11-10] MEDS: predniSONE 5 MG TAB PO SCH (09:29)
[2016-11-10] MEDS: MYCOPHENOLATE MOFETIL 250 MG CAP PO SCH (09:29)
[2016-11-10] MEDS: ATENOLOL 50 MG TAB PO SCH (09:29)
[2016-11-10] MEDS: TACROLIMUS 1 MG CAP PO SCH (09:30)
[2016-11-10 11:58] LABS: Glucose,Whole Blood 228 mg/dL (75-99)
--- NOTE | 2016-11-10 12:02 | P.PN ---
Subjective This is a 6-year-old patient with kidney transplant who came in because of chest pain and had a cardiac catheterization dated 11/06/2016 . She now has an increasing creatinine from a baseline of 1.6-1.9 and is deemed to be secondary to Acute kidney injury secondary to cardiac catheterization on 11/06/2016.Her creatinine continues to go up to 2.3 this morning This morning continues to have some nausea but no vomiting today. 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 She asked that this to medication that she takes on an empty stomach. In the evening she has been able to retain her food yesterday. This morning she had her breakfast although she feels nauseated she has not thrown up. There is no pain in her feet to suggest any cholesterol emboli. Her urine output is recorded at 850 mL this morning. No documentation of urine output yesterday. Denies any shortness of breath dizziness fever chills dysuria frequency diarrhea. She is having normal bowel movements. No dizziness cramps. No history suggestive of any GERD or any GI bleeding. She is otherwise stable. Urinary habits are unremarkable. She has chronic back pain for which she has had spinal blocks in the past Objective - Vital Signs Vital signs: Vital Signs Temp 98.5 F 11/10/16 08:00 Pulse 76 11/10/16 08:00 Resp 16 11/10/16 08:00 BP 163/71 11/10/16 08:00 Pulse Ox 95 11/10/16 08:00 Intake & Output 11/09/16 11/10/16 11/10/16 18:59 06:59 18:59 Output Total 850 Balance -850 Weight 102.6 kg Output: Urine 850 Other: # Voids 1 On examination she is awake alert oriented comfortable. HEENT exam no JVP neck is supple no facial asymmetry Lungs are clear to auscultation percussion good air entry bilaterally. Heart sounds are unremarkable for any murmur rub gallop. Abdomen soft nontender no organomegaly status masses Extremity examination reveals minimal to mild edema. Neurologically awake alert oriented. No focal motor deficit. On her feet there is no evidence of any cholesterol emboli. - Labs CBC & Chem 7: 11/10/16 06:03 11/10/16 05:59 Labs: Abnormal Lab Results - Last 24 Hours (Table) 11/09/16 11/09/16 11/10/16 Range/Units 16:41 20:29 05:44 RBC (3.80-5.40) m/uL Hgb (11.4-16.0) gm/dL Hct (34.0-46.0) % Lymphocytes # (1.0-4.8) k/uL Sodium (137-145) mmol/L BUN (7-17) mg/dL Creatinine (0.52-1.04) mg/dL Glucose (74-99) mg/dL POC Glucose (mg/dL) 195 H 169 H 129 H (75-99) mg/dL 11/10/16 11/10/16 Range/Units 05:59 06:03 RBC 3.49 L (3.80-5.40) m/uL Hgb 10.2 L (11.4-16.0) gm/dL Hct 32.7 L (34.0-46.0) % Lymphocytes # 0.8 L (1.0-4.8) k/uL Sodium 132 L (137-145) mmol/L BUN 31 H (7-17) mg/dL Creatinine 2.30 H (0.52-1.04) mg/dL Glucose 115 H (74-99) mg/dL POC Glucose (mg/dL) (75-99) mg/dL Assessment and Plan Plan: Impression 1. Acute kidney injury from likely dye toxicity. Cardiac catheterization 11/06, creatinine started going up from 1.4-1.9 and 2.3 today. Good urine output this morning, therefore expected to recover. The somewhat bothersome issues of nausea that could mean cholesterol embolization to the intestines but no evidence of the same in her feet. Patient wants to be discharged. Her blood pressure is somewhat high and she has mild edema. We will give her Lasix 20 mg before she goes and is up to her primary physician to let her go considered and she has cardiac issues as well. 2. History of kidney transplant from an unknown related living donor approximately 11 years ago at the [facility] on immunosuppression with CellCept 750 twice a day and Prograf 2 mg twice a day and prednisone 5 mg a day stable 3 chest pain and unstable angina currently asymptomatic status post cardiac catheterization. Recommendation. Agree with holding off any further intervention cardiologically unless it is urgency. Expect creatinine to improve hopefully in the next 24-48 hours. If her creatinine is stable at the cardiology wants to discharge her it'll be satisfactory from nephrology perspective. We can follow her creatinine and the office on a daily basis. In the meantime will maintain the immunosuppressive medication. Will check Prograf level. This is pending. We will also give her Lasix 20 mg IV 1 dose now because of the blood pressure being somewhat high and the edema. If she does go home she needs to have labs drawn every day. I'll given her a prescription for the same. She also needs to be followed up tomorrow in our office.
[2016-11-10] MEDS ORDERED: FUROSEMIDE 10 MG/ML 2 ML VIAL IV ONE (12:03)
[2016-11-10 12:18] VITALS: BP 130/60; PULSE 95; TEMP 98.1
--- NOTE | 2016-11-10 12:39 | P.PN ---
Subjective Principal diagnosis: Chest pain This is a pleasant 66-year-old female with history of hypertension, diabetes, hyperlipidemia, coronary artery disease with prior stent placements approximately 4 years ago, history of kidney transplant 11 years ago, denies nicotine dependence, drinks red wine occasionally, she states that she got up around 4 AM this morning, she had appointments at [facility], when she developed midsternal chest pressure and heaviness with a pounding sensation in her chest. She took a baby aspirin along with a sublingual nitroglycerin and shortly thereafter the symptoms resolved. While in the car, she again developed pressure in the chest and took a second sublingual nitroglycerin and decided to come to the emergency room for further evaluation. Patient did have mild associated nausea, denies shortness of breath or diaphoresis. Patient ruled in for non-Q-wave myocardial infarction, underwent a stress test which came back to be positive for reversible ischemia and subsequently underwent cardiac catheterization which revealed a critical lesion in the circumflex with moderate disease in the LAD and diagonal. Patent stent in the RCA. Originally patient was scheduled to undergo intervention yesterday , however the creatinine was up to 1.9. Patient has been stable from a cardiac perspective, hemodynamically stable. Denies any chest pain. Dr. Fareed Ahmadi did have a discussion yesterday with Dr. Menendez and the decision was made to defer intervention for at least 2 weeks to get the kidneys stabilized. This was also discussed with bear Allan for nephrology. Plan of care was discussed with the patient and her in detail and they are in agreement. Today patient's creatinine is up to 2.3. Patient continues to feel mildly nauseated today. Really wants to be discharged home. From nephrology's perspective, 40 mg of IV Lasix was given today, they felt that the patient could go home if her labs were monitored on a daily basis. They also feel that the creatinine will normalized within 48 hours. Objective - Vital Signs Vital signs: Vital Signs Temp 98.1 F 11/10/16 12:00 Pulse 95 11/10/16 12:00 Resp 16 11/10/16 12:00 BP 130/60 11/10/16 12:00 Pulse Ox 95 11/10/16 12:00 Intake & Output 11/09/16 11/10/16 11/10/16 18:59 06:59 18:59 Output Total 850 Balance -850 Weight 102.6 kg Output: Urine 850 Other: # Voids 1 - Exam PHYSICAL EXAMINATION: HEENT: Head is atraumatic, normocephalic. Pupils equal, round. Neck is supple. There is no elevated jugular venous pressure. HEART EXAMINATION: Heart S1 S2 1 systolic murmur is heard. CHEST EXAMINATION: Lungs are clear to auscultation and precussion. No chest wall tenderness is noted on palpation or with deep breathing. ABDOMEN: Soft, nontender. Bowel sounds are heard. No organomegaly noted. Right groin soft, no evidence of any hematoma. EXTREMITIES: 2+ peripheral pulses with trace evidence of peripheral edema and no calf tenderness noted. NEUROLOGIC patient is awake, alert and oriented -3. - Labs CBC & Chem 7: 11/10/16 06:03 11/10/16 05:59 Labs: Abnormal Lab Results - Last 24 Hours (Table) 11/09/16 11/09/16 11/10/16 Range/Units 16:41 20:29 05:44 RBC (3.80-5.40) m/uL Hgb (11.4-16.0) gm/dL Hct (34.0-46.0) % Lymphocytes # (1.0-4.8) k/uL Sodium (137-145) mmol/L BUN (7-17) mg/dL Creatinine (0.52-1.04) mg/dL Glucose (74-99) mg/dL POC Glucose (mg/dL) 195 H 169 H 129 H (75-99) mg/dL 11/10/16 11/10/16 11/10/16 Range/Units 05:59 06:03 11:52 RBC 3.49 L (3.80-5.40) m/uL Hgb 10.2 L (11.4-16.0) gm/dL Hct 32.7 L (34.0-46.0) % Lymphocytes # 0.8 L (1.0-4.8) k/uL Sodium 132 L (137-145) mmol/L BUN 31 H (7-17) mg/dL Creatinine 2.30 H (0.52-1.04) mg/dL Glucose 115 H (74-99) mg/dL POC Glucose (mg/dL) 228 H (75-99) mg/dL Assessment and Plan Plan: Assessment and plan #1 ACS #2 accelerated hypertension, blood pressure on arrival 201/90, 130/78 this morning. #3 history of hypertension #4 diabetes #5 hyperlipidemia #6 end-stage renal disease, history of renal transplant 11 years ago. #7 known history of coronary artery disease with prior stent placements 2 approximately 4 years ago, exact details unavailable. #8 chronic back problems #9 status post cardiac catheterization, with significant stenosis in the circumflex. Plan From cardiology's perspective, we will maximize the patient's medical therapy, add Norvasc to the patient's medication regime for more optimal blood pressure control. moved the intervention time to approximately [address] to optimize the patient's kidneys. This was discussed with the patient, her , nephrology, in detail. DNP note has been reviewed, I agree with a documented findings and plan of care. Patient was seen and examined.
[2016-11-10] MEDS ORDERED: amLODIPine 5 MG TAB PO SCH (13:00)
[2016-11-10] MEDS: CHOLECALCIFEROL 1,000 UNIT TAB PO SCH (13:46)
[2016-11-10] MEDS: MULTIVITAMINS, THERA 1 EACH TAB PO SCH (13:46)
[2016-11-10] MEDS: B COMPLEX-VIT C-VIT E-ZINC 1 EACH TAB PO SCH (13:46)
[2016-11-10] MEDS: FERROUS SULFATE 325 MG TAB PO SCH (13:46)
--- NOTE | 2016-11-11 13:29 | P.DS ---
Providers Date of admission: 11/05/16 06:42 Expected date of discharge: 11/10/16 Attending physician: Refugio Cordova Consults: 11/05/16 11:23 Consult Physician Routine Consulting Provider: Dori Hussein Consult Reason/Comments: renal transplant, possible cath Do you want consulting provider notified?: Yes Primary care physician: [facility] Course: This is a 66-year-old pleasant female patient of Dr. Cordova , she has underlying past medical history for diabetes mellitus on insulin pump, CAD, GERD , hyperlipidemia, hypertension, end-stage renal disease status post renal transplant 11 years ago at [facility] and follows every 6 months. In fact, patient had an appointment today to see her renal doctor the [facility]. She states she got up this morning and she had a tightness in her chest. She states she took aspirin and nitroglycerin and the chest pain went away but she still had some minimal tightness. She states she's had the same type of pain before but she was not diagnosed with a myocardial infarction. She states her blood pressure has been running about 130/60 at home. Her normal creatinine is 1.5-1.6. She also complains of left shoulder soreness and worsens with range of motion. Patient has had problems with her insulin pump recently is going to have this checked at [facility] today. She states she was having bubbles in the reservoir and she was not using it and using her Lantus and Humalog scale instead. Patient her gives history that they drove family members including grandchildren to the airport yesterday and spent extensive time in the car and the family was leaving for [facility] and this was very stressful for the patient. She presented to [facility] emergency center with the above. BUN 31 and creatinine 1.6. Her blood glucose 199. Initial troponin 0.055. ProBNP 2440. Patient was admitted to the selective care unit and a cardiology consult requested. They have ordered echocardiogram, repeat troponins and heparin drip. We have added in consult with nephrology in case patient needs heart catheterization. 11/06: Patient underwent stress testing which was positive and she is to undergo heart catheterization today. Dr. Hussein is on consult. Her kidney function remains the same. Patient is very anxious and his May questions regarding undergoing heart catheterization with kidney transplant. 11/07: Heart catheterization revealed diffuse coronary artery disease with patent stent in the RCA, critical lesion in the mid circumflex and moderate diffuse plaque in the LAD and diagonal. Plan is to stent circumflex on Wednesday and maximize medical therapy. Patient is followed by nephrology and has been on IV fluids of normal saline at 75 mL per hour and received Mucomyst. Repeat creatinine is at 1.49. Patient states she did have some nausea last night and is having trouble with her chronic back pain. She denies having any chest pain she continues on a heparin drip. She complains of dull ache to her hands and wrist for which warm compresses can be used. Hemoglobin A1c is 7.2. 11/08: patient states that she is not sleeping well and feels very tired. She denies any chest pain or shortness of breath. BUN [address] Johnson is planning for bicarb protocol tomorrow prior to stent placement. 11/09: Abdomen is increased to 1.9 today. She denies any chest pain but she does have significant nausea which she states she thinks is due to taking her medications on an empty stomach. She also is having significant back pain and is unable to comfortable in the bed. 11/10: BUN 31 and creatinine 2.3. Cardiac catheterization on hold with plan for return at a later time. Patient has been seen by Dr. Rasmussen with recommendations for one dose of Lasix 20 mg now and then daily labs as an outpatient at their office. Patient is agreeable to this plan. Patient will be discharged home today in stable condition. Patient did have concern as she was out of [facility] for her insulin pump. Boogie pharmacist at [facility] was contacted. He states he will assist the patient with getting insulin as her insurance will not allow refill until December 02. Patient instructed to follow-up with him before 6 PM today. Discharge diagnoses: 1. Chest pain rule out acute coronary syndrome. 3. Post renal transplant. 4. Hypertension and hypertensive cardiovascular disease. 5. Diabetes mellitus type 2. 6. Hyperlipidemia. 7. Obesity with possible obstructive sleep apnea. Need sleep study as an outpatient. 8. Chronic kidney disease stage III. 9. GERD. Discharge plan: Return home Impression and plan of care have been directed as dictated by the signing physician. Lainey Cameron nurse practitioner acting as scribe for signing physician. Patient Condition at Discharge: Good Plan - Discharge Summary New Discharge Prescriptions: Atorvastatin [Lipitor] 80 mg PO DAILY #30 tab Discharge Medication List Ascorbic Acid [Vitamin C] 500 mg PO DAILY 04/09/15 [History] Aspirin EC [Ecotrin Low Dose] 81 mg PO DAILY 04/09/15 [History] Atenolol [Tenormin] 100 mg PO DAILY 04/09/15 [History] Cholecalciferol [Vitamin D3] 2,000 unit PO DAILY 04/09/15 [History] Ferrous Sulfate [Iron (65 MG Elemental)] 325 mg PO DAILY 04/09/15 [History] Mycophenolate Mofetil [Cellcept] 500 mg PO BID@0900,2100 04/09/15 [History] Tacrolimus [Prograf] 2 mg PO BID 04/09/15 [History] predniSONE 5 mg PO DAILY 04/09/15 [History] HYDROcodone/APAP 5-325MG [[place] 5-325] 1 tab PO Q6H PRN 03/04/16 [History] Multivits-Min/Iron/FA/Lutein [Centrum Silver Women Tablet] 1 tab PO DAILY [History] Nitroglycerin Sl Tabs [Nitrostat] 0.4 mg SUBLINGUAL Q5M PRN 03/04/16 [History] Vitamin B Complex 1 cap PO DAILY 03/04/16 [History] Albuterol Inhaler [Ventolin Hfa Inhaler] 2 puff INHALATION RT-Q4H PRN 09/16/16 [ History] Furosemide [Lasix] 20 mg PO DAILY 09/16/16 [History] Glucagon Emergency Kit 1 mg IM ONCE PRN 09/16/16 [History] INSULIN LISPRO (HumaLOG) [humaLOG] See Protocol SQ CONTINUOUS 09/16/16 [History] Ranitidine HCl [Zantac] 75 mg PO DAILY 09/16/16 [History] rOPINIRole HCL [Requip] 1 mg PO BID #0 09/17/16 [Rx] Atorvastatin [Lipitor] 80 mg PO DAILY #30 tab 11/10/16 [Rx] Mycophenolate Mofetil [Cellcept] 250 mg PO BID@0900,2100 #0 NS 11/10/16 [Rx] Follow up Appointment(s)/Referral(s): [facility] [Provider Group] - 11/18/16 3:30 pm Refugio Cordova MD [Primary Care Provider] - 11/17/16 11:00 am Reggie Rasmussen MD [STAFF PHYSICIAN] - As Needed (daily for lab work) Patient Instructions/Handouts: Chest Pain (ED) Discharge Disposition: HOME SELF-CARE
== END 2016-11-10 15:44 | disposition home or self-care (01) | DRG 281 ==
LOC: EC 05:32 → 6SEL 06:42
PROVIDERS: ADMIT Internal Medicine Geriatric Medicine; ATTEND Internal Medicine Geriatric Medicine
PROC: 4A023N7 Measurement of Cardiac Sampling and Pressure, Left Heart, Percutaneous Approach (ICD-10-PCS; principal; 2016-11-06 17:35)
PROC: B2111ZZ Fluoroscopy of Multiple Coronary Arteries using Low Osmolar Contrast (ICD-10-PCS; principal; 2016-11-06 17:35)
DX: I21.4 Non-ST elevation (NSTEMI) myocardial infarction (principal); Z94.0 Kidney transplant status; N17.8 Other acute kidney failure; E10.21 Type 1 diabetes mellitus with diabetic nephropathy; I13.10 Hypertensive heart and chronic kidney disease without heart failure, with stage 1 through stage 4 chronic kidney disease, or unspecified chronic kidney disease; I25.110 Atherosclerotic heart disease of native coronary artery with unstable angina pectoris; E10.22 Type 1 diabetes mellitus with diabetic chronic kidney disease; E87.70 Fluid overload, unspecified; N18.3 Chronic kidney disease, stage 3 (moderate); I16.0 Hypertensive urgency; E78.5 Hyperlipidemia, unspecified; G89.29 Other chronic pain; M54.9 Dorsalgia, unspecified; K21.9 Gastro-esophageal reflux disease without esophagitis; T50.8X5A Adverse effect of diagnostic agents, initial encounter; E66.9 Obesity, unspecified; Z95.5 Presence of coronary angioplasty implant and graft; Z68.36 Body mass index [BMI] 36.0-36.9, adult; Z96.41 Presence of insulin pump (external) (internal); Z98.42 Cataract extraction status, left eye; Z98.41 Cataract extraction status, right eye; Z96.1 Presence of intraocular lens; Z82.49 Family history of ischemic heart disease and other diseases of the circulatory system; Z79.82 Long term (current) use of aspirin; Z79.4 Long term (current) use of insulin; Z79.52 Long term (current) use of systemic steroids; Z79.899 Other long term (current) drug therapy; Y92.230 Patient room in hospital as the place of occurrence of the external cause; D64.9 Anemia, unspecified; E53.8 Deficiency of other specified B group vitamins; E55.9 Vitamin D deficiency, unspecified
CPT/HCPCS: 36415; 71020; 78452; 80048; 80053; 80061; 80197; 82550; 82553; 83036; 83690; 83735; 83880; 84484; 85025; 85610; 85730; 93005; 93017; 93306; 93454; 96361; 96374; 96375; 99291

== ENCOUNTER → 2016-11-12 | Outpatient (CLI) | payer MEDICARE ==
[2016-11-12 14:06] LABS: Basophils % (A) 1 %; CH 29.8; Eosinophils # (A) 0.3 k/uL (0-0.7); Eosinophils % (A) 6 %; HCT 30.8 % (34.0-46.0); HDW 2.58; HGB 9.5 gm/dL (11.4-16.0); Luc # (Auto) 0.24; Luc % (Auto) 4; Lymphocytes # (A) 0.9 k/uL (1.0-4.8); Lymphocytes % (A) 15 %; MCH 28.8 pg (25.0-35.0); MCHC 30.7 g/dL (31.0-37.0); MCV 93.8 fL (80.0-100.0); Mean Platelet Volume 7.6; Monocytes # (A) 0.7 k/uL (0-1.0); Monocytes % (A) 13 %; Neutrophils # (A) 3.6 k/uL (1.3-7.7); Neutrophils % (A) 62 %; RBC 3.29 m/uL (3.80-5.40); WBC 5.8 k/uL (3.8-10.6); WBC (Perox) 6.09
[2016-11-12 14:15] LABS: Calcium 9.6 mg/dL (8.4-10.2); Phosphorous 4.3 mg/dL (2.5-4.5); Potassium 4.8 mmol/L (3.5-5.1)
== END | disposition home or self-care (01) ==
LOC: LABWHC1 12:46
PROVIDERS: ATTEND Physician Assistant
DX: E10.29 Type 1 diabetes mellitus with other diabetic kidney complication (principal); Z51.81 Encounter for therapeutic drug level monitoring; Z94.0 Kidney transplant status
CPT/HCPCS: 36415; 80069; 85025

== ENCOUNTER 2016-11-23 11:30 | Inpatient (IN) | payer MEDICARE ==
[~2016-11-23 11:30] MED LIST: ALBUTEROL INHALER 60 PUFF/8 GM INHALER INHALATION PRN; ASCORBIC ACID 500 MG TAB PO SCH; ATORVASTATIN 80 MG TAB PO SCH; CHOLECALCIFEROL 1,000 UNIT TAB PO SCH; FERROUS SULFATE 325 MG TAB PO SCH; HYDROcodone/APAP 5-325MG 1 EACH TAB PO PRN; IRON PO SCH; LUTEIN PO SCH; MULTIVITS MIN PO SCH; NITROGLYCERIN SL TABS 0.4 MG TAB SUBLINGUAL PRN; NON-FORMULARY DRUG (Aspirin Ec 81 MG) PO SCH; NON-FORMULARY DRUG (Atenolol [Tenormin] 100 MG) PO SCH; NON-FORMULARY DRUG (Ranitidine Hcl [Zantac] 75 MG) PO SCH; NON-FORMULARY DRUG (Vitamin B Complex [Vitamin B Complex] 1 CAP) PO SCH; [UNRECOGNIZED DRUG - MIXTURE] PO SCH; [UNRECOGNIZED DRUG - OTHER] PO SCH; predniSONE 5 MG TAB PO SCH
[2016-11-23] MEDS ORDERED: SODIUM CHLORIDE 0.45% 1,000 ML IV SCH (18:49)
[2016-11-23] MEDS ORDERED: ATORVASTATIN 80 MG TAB PO STA (18:49)
[2016-11-23] MEDS ORDERED: ASPIRIN 325 MG TAB PO STA (18:49)
[2016-11-23] MEDS ORDERED: NITROGLYCERIN SL TABS 0.4 MG TAB SUBLINGUAL PRN (18:49)
[2016-11-23] MEDS: SODIUM CHLORIDE 0.45% 1,000 ML with SODIUM BICARB (1 MEQ/ML) 50 ML IV SCH ×2 (20:14)
[2016-11-23 20:17] LABS: Glucose,Whole Blood 153 mg/dL (75-99)
[2016-11-23] MEDS ORDERED: LOSARTAN 50 MG TAB PO STA (21:41)
[2016-11-23] MEDS ORDERED: MYCOPHENOLATE MOFETIL 500 MG TAB PO SCH (21:45)
[2016-11-23] MEDS: RANITIDINE SYRUP 150 MG/10 ML CUP PO SCH (22:32)
[2016-11-23] MEDS: TACROLIMUS 1 MG CAP PO SCH (22:32)
[2016-11-23] MEDS: MYCOPHENOLATE MOFETIL 250 MG CAP PO SCH (22:32)
[2016-11-23 23:55] LABS: Glucose,Whole Blood 122 mg/dL (75-99)
[2016-11-24] MEDS: ATENOLOL 50 MG TAB PO SCH ×2 (04:39→08:25)
[2016-11-24] MEDS: predniSONE 5 MG TAB PO SCH ×2 (04:40→08:23)
[2016-11-24] MEDS: FERROUS SULFATE 325 MG TAB PO SCH ×3 (04:40→15:02)
[2016-11-24 07:56] LABS: Glucose,Whole Blood 95 mg/dL (75-99)
[2016-11-24 08:06] LABS: Basophils % (A) 1 %; CH 29.2; CHCM 31.8; Eosinophils # (A) 0.3 k/uL (0-0.7); Eosinophils % (A) 5 %; HCT 29.3 % (34.0-46.0); HDW 2.75; HGB 9.3 gm/dL (11.4-16.0); Hypochromasia Slight; Luc # (Auto) 0.23; Luc % (Auto) 4; Lymphocytes # (A) 1.2 k/uL (1.0-4.8); Lymphocytes % (A) 23 %; MCH 29.2 pg (25.0-35.0); MCHC 31.7 g/dL (31.0-37.0); MCV 92.2 fL (80.0-100.0); Mean Platelet Volume 6.7; Monocytes # (A) 0.4 k/uL (0-1.0); Monocytes % (A) 8 %; Neutrophils # (A) 3.3 k/uL (1.3-7.7); Neutrophils % (A) 60 %; RBC 3.18 m/uL (3.80-5.40); RDW 13.8 % (11.5-15.5); WBC 5.5 k/uL (3.8-10.6); WBC (Perox) 5.89
[2016-11-24] MEDS: RANITIDINE SYRUP 150 MG/10 ML CUP PO SCH (08:33)
[2016-11-24] MEDS: MYCOPHENOLATE MOFETIL 250 MG CAP PO SCH ×2 (08:34→22:28)
[2016-11-24] MEDS: TACROLIMUS 1 MG CAP PO SCH ×2 (08:34→22:28)
[2016-11-24 08:36] LABS: Calcium 9.1 mg/dL (8.4-10.2); Potassium 4.4 mmol/L (3.5-5.1)
[2016-11-24] MEDS ORDERED: IV FLUID CONTINUATION 1,000 ML IV ONE (11:33)
--- NOTE | 2016-11-24 11:49 | P.NPCON ---
History of Present Illness - Reason for Consult chronic renal failure - History of Present Illness Reason for consultation: Chronic kidney disease and transplant management History of present illness: Patient is a 66-year-old female seen in renal consultation for chronic kidney disease and transplant management. Patient received a living unrelated renal allograft at [facility] in 2004. She is maintained on Prograf, CellCept and prednisone. Her baseline creatinine is near 1.6. She was recently admitted with a non-ST elevated myocardial infarction and underwent cardiac catheterization which revealed significant disease of the circumflex. Her renal function worsened with creatinine of 2.3 and therefore repeat catheterization for intervention wasn't done. Her renal failure subsequently improved and GFR is back to baseline. She presents to the hospital for circumflex intervention today. She is currently receiving IV fluids. Denies any active chest pain or shortness of breath. Appetite is good. Admits to good urine output. No vomiting or diarrhea. Vital signs are stable. General: The patient appeared well nourished and normally developed. HEENT: Head exam is unremarkable. Neck is without jugular venous distension. LUNGS: Lungs are clear to auscultation and percussion. Breath sounds decreased. HEART: Rate and Rhythm are regular. First and second heart sounds normal. No murmurs, rubs or gallops. ABDOMEN: Abdominal exam reveals normal bowel sounds. Non-tender and non- distended. No evidence of peritonitis. EXTREMITITES: No clubbing, cyanosis, or edema. Past Medical History Past Medical History: Coronary Artery Disease (CAD), Diabetes Mellitus, GERD/ Reflux, Hyperlipidemia, Hypertension, Renal Disease Additional Past Medical History / Comment(s): Chronic renal disease stage III with previous renal transplant, chronic anemia, IDDM with insulin pump, gluten free diet, neuropathy History of Any Multi-Drug Resistant Organisms: None Reported Past Surgical History: Section, Heart Catheterization, Heart Catheterization With Stent, Orthopedic Surgery Additional Past Surgical History / Comment(s): 2005 Kidney transplant at [facility] , bilateral cataracts, retinal peeling in left eye, L achilles tendon repair , L upper arm dialysis fistula, 2 cardiac stents, 2 c/s Past Anesthesia/Blood Transfusion Reactions: Motion Sickness, Postoperative Nausea & Vomiting (PONV) Additional Past Anesthesia/Blood Transfusion Reaction / Comment(s): PONV after C /S Date of Last Stent Placement:: approx 2012 Past Psychological History: No Psychological Hx Reported Additional Psychological History / Comment(s): . Smoking Status: Never smoker Past Alcohol Use History: Occasional Additional Past Alcohol Use History / Comment(s): Patient is a lifelong nonsmoker. She does drink red wine OCC LESS THEN 7 GLASSES PER WEEK Past Drug Use History: None Reported - Past Family History Father Family Medical History: Myocardial Infarction ([place]) Additional Family Medical History / Comment(s): Father at age 70 from myocardial infarction Mother Family Medical History: Cancer Additional Family Medical History / Comment(s): Mother at age 86 from pneumonia. Sister(s) Family Medical History: Cancer Additional Family Medical History / Comment(s): . Medications and Allergies Home Medications Medication Instructions Recorded Confirmed Type Ascorbic Acid [Vitamin C] 500 mg PO DAILY 04/09/15 11/19/16 History Aspirin EC [Ecotrin Low Dose] 81 mg PO DAILY 04/09/15 11/19/16 History Atenolol [Tenormin] 100 mg PO DAILY 04/09/15 11/19/16 History Cholecalciferol [Vitamin D3] 2,000 unit PO DAILY 04/09/15 11/19/16 History Ferrous Sulfate [Iron (65 MG 325 mg PO DAILY 04/09/15 11/19/16 History Elemental)] Mycophenolate Mofetil [Cellcept] 500 mg PO BID@0900,2100 04/09/15 11/19/16 History Tacrolimus [Prograf] 2 mg PO BID 04/09/15 11/19/16 History predniSONE 5 mg PO DAILY 04/09/15 11/19/16 History HYDROcodone/APAP 5-325MG [[place] 1 tab PO Q6H PRN 03/04/16 11/19/16 History 5-325] Multivits-Min/Iron/FA/Lutein 1 tab PO DAILY 03/04/16 11/19/16 History [Centrum Silver Women Tablet] Nitroglycerin Sl Tabs [Nitrostat] 0.4 mg SUBLINGUAL DIRECTED PRN 03/04/16 History Vitamin B Complex 1 cap PO DAILY 03/04/16 11/19/16 History Albuterol Inhaler [Ventolin Hfa 2 puff INHALATION Q4H PRN 09/16/16 11/19/16 History Inhaler] Glucagon Emergency Kit 1 mg IM DIRECTED PRN 09/16/16 11/19/16 History INSULIN LISPRO (HumaLOG) [humaLOG] See Protocol SQ CONTINUOUS 09/16/16 11/19/16 History Ranitidine HCl [Zantac] 75 mg PO DAILY 09/16/16 11/19/16 History Rutin/Quercetin/Bioflav/Bilber 1 each PO DAILY 11/19/16 11/19/16 History [Bilberry Extract] Allergies Allergy/AdvReac Type Severity Reaction Status Date / Time Sulfa (Sulfonamide Allergy Rash/Hives Verified 11/23/16 18:48 Antibiotics) vancomycin Allergy Rash/Hives Verified 11/23/16 18:48 venom-honey bee Allergy Swelling Verified 11/23/16 18:48 [bee venom (honey bee)] metoprolol tartrate AdvReac Confusion Verified 11/23/16 18:48 [From Lopressor] Physical Exam Vitals: Vital Signs Temp Pulse Resp BP Pulse Ox 11/24/16 10:50 98.4 F 61 16 170/77 11/24/16 08:42 97.9 F 65 16 193/82 11/24/16 08:40 97.9 F 65 16 193/82 11/24/16 00:15 98.6 F 66 18 145/74 11/23/16 19:08 98.2 F 71 18 158/74 98 Intake and Output 11/23/16 11/24/16 11/24/16 22:59 06:59 14:59 Other: # Voids 1 1 Weight 97.976 kg Results - Lab Results Most recent lab results Calcium 9.1 mg/dL (8.4-10.2) 11/24/16 07:48 11/24/16 07:48 11/24/16 07:48 Assessment and Plan Plan: Assessment: #1. Chronic kidney disease stage III with GFR at baseline. #2. Status post living unrelated renal allograft at [facility] from 2004. #3. Diabetes mellitus. #4. Coronary artery disease. #5. Anemia. Rule out iron deficiency. Plan: Patient is scheduled for a cardiac catheterization today. Risk of developing contrast-induced nephropathy was discussed with the patient. Continue with normal saline to be run at 75 mL an hour and 2 Hep-Lock IV fluids 12 hours after cardiac catheterization. Mucomyst 4 doses. Check iron studies. Repeat electrolytes in the morning. Maintain current immunosuppression with Prograf, CellCept, and prednisone. Thank you for the consultation. I will continue to follow the patient with you during her hospital stay.
[2016-11-24] MEDS ORDERED: MIDAZOLAM 2 MG/2 ML VIAL ONE (11:52)
[2016-11-24] MEDS ORDERED: diphenhydrAMINE 50 MG/ML 1 ML VIAL ONE (11:52)
[2016-11-24] MEDS ORDERED: MIDAZOLAM 2 MG/2 ML VIAL IV ONE (11:56)
[2016-11-24] MEDS ORDERED: SODIUM CHLORIDE 0.9% 1,000 ML IV ONE (11:57)
[2016-11-24] MEDS ORDERED: NITROGLYCERIN SL TABS 0.4 MG TAB SUBLINGUAL ONE ×2 (11:58→11:59)
[2016-11-24] MEDS ORDERED: LIDOCAINE 2% INJ 20 MG/ML SQ ONE (11:59)
[2016-11-24] MEDS ORDERED: SODIUM CHLORIDE 0.9% 1,000 ML IV SCH (12:00)
[2016-11-24] MEDS ORDERED: HYDROmorphone 2 MG/ML 1 ML SYRINGE ONE (12:04)
[2016-11-24] MEDS: HYDROmorphone 2 MG/ML 1 ML SYRINGE IV ONE ×2 (12:06→12:20)
[2016-11-24] MEDS: NITROGLYCERIN 1000MCG/10ML SYRINGE INTRACORON ONE ×4 (12:08→12:36)
[2016-11-24] MEDS ORDERED: BIVALIRUDIN BOLUS 250 MG/50 ML IV ONE (12:10)
[2016-11-24] MEDS ORDERED: BIVALIRUDIN 250 MG in SODIUM CHLORIDE 0.9% 50 ML IV ONE ×2 (12:15→12:50)
[2016-11-24] MEDS ORDERED: amLODIPine 5 MG TAB ONE (12:31)
[2016-11-24] MEDS ORDERED: amLODIPine 5 MG TAB PO ONE (12:32)
[2016-11-24] MEDS ORDERED: CLOPIDOGREL 75 MG TAB ONE (12:41)
[2016-11-24] MEDS ORDERED: LABETALOL SYRINGE 5 MG/ML ONE (12:44)
[2016-11-24] MEDS ORDERED: CLOPIDOGREL 75 MG TAB PO ONE (12:44)
[2016-11-24] MEDS ORDERED: NITROGLYCERIN SL TABS 0.4 MG TAB SUBLINGUAL PRN (12:48)
[2016-11-24] MEDS ORDERED: ZOLPIDEM 5 MG TAB PO PRN (12:48)
[2016-11-24] MEDS ORDERED: MAG HYDROX/AL HYDROX/SIMETH 30 ML CUP PO PRN (12:48)
[2016-11-24] MEDS ORDERED: RX INFO: IV CONTRAST WAS GIVEN 1 EACH MISC MISCELLANE PRN (12:48)
[2016-11-24] MEDS ORDERED: IODIXANOL 320 MG/ML 100 ML INTRAARTER ONE (12:51)
[2016-11-24] MEDS ORDERED: LABETALOL SYRINGE 5 MG/ML IV ONE (12:51)
[2016-11-24 13:06] LABS: % Iron Saturation 17.6 % (20-50)
[2016-11-24 13:15] LABS: Glucose,Whole Blood 157 mg/dL (75-99)
[2016-11-24] MEDS: SODIUM CHLORIDE 0.45% 1,000 ML with SODIUM BICARB (1 MEQ/ML) 50 ML IV SCH ×2 (14:01)
[2016-11-24] MEDS: ALPRAZolam 0.25 MG TAB PO PRN (14:01)
[2016-11-24] MEDS: hydrALAZINE HCL 50 MG TAB PO SCH ×2 (15:02→22:28)
[2016-11-24] MEDS: CHOLECALCIFEROL 1,000 UNIT TAB PO SCH (15:02)
[2016-11-24] MEDS ORDERED: HYDROmorphone 1 MG/ML 1 ML SYRINGE IVP STA (18:17)
[2016-11-24 18:38] LABS: Glucose,Whole Blood 164 mg/dL (75-99)
[2016-11-24] MEDS ORDERED: LORazepam 2 MG/ML SYRINGE IV STA (20:06)
[2016-11-24] MEDS ORDERED: LORazepam 2 MG/ML SYRINGE ONE (20:08)
[2016-11-24 20:12] LABS: Basophils % (A) 1 %; CH 29.3; CHCM 32.2; Eosinophils # (A) 0.1 k/uL (0-0.7); Eosinophils % (A) 1 %; HCT 26.2 % (34.0-46.0); HDW 2.75; HGB 8.3 gm/dL (11.4-16.0); Luc # (Auto) 0.22; Luc % (Auto) 3; Lymphocytes # (A) 1.2 k/uL (1.0-4.8); Lymphocytes % (A) 17 %; MCH 29.1 pg (25.0-35.0); MCHC 31.8 g/dL (31.0-37.0); MCV 91.4 fL (80.0-100.0); Mean Platelet Volume 7.9; Monocytes # (A) 0.4 k/uL (0-1.0); Monocytes % (A) 6 %; Neutrophils # (A) 4.9 k/uL (1.3-7.7); Neutrophils % (A) 72 %; RBC 2.87 m/uL (3.80-5.40); RDW 13.8 % (11.5-15.5); WBC 6.9 k/uL (3.8-10.6); WBC (Perox) 7.31
[2016-11-24 21:13] LABS: Glucose,Whole Blood 134 mg/dL (75-99)
[2016-11-24] MEDS: amLODIPine 5 MG TAB PO SCH ×3 (22:28→22:30)
[2016-11-24] MEDS: ACETYLCYSTEINE 800 MG/4 ML VIAL PO SCH (22:29)
--- NOTE | 2016-11-24 23:03 | P.CONS ---
History of Present Illness - Reason for Consult Consult date: 11/24/16 Medical management Requesting physician: Heidi Ahmadi - Chief Complaint Coronary artery disease post to angioplasty and stent placement, post [place], c - History of Present Illness 66-year-old female one of my office patient of known for long time was hospitalized in November 05 of November 10, 2016 for acute myocardial infarction with acute coronary syndrome ended up going for angiogram showed significant stenosis in the LAD and circumflex. Patient kidney function had declined slightly ended up going home after being hydrated and watch her kidney function was seen in the office and see Dr. Ahmadi and patient brought to the hospital on 11/23/2016 for an angioplasty, procedure was done successfully and patient is resting comfortably with no complaint, nephrology consultation was requested and BUN/creatinine to be done an daily basis for the next 2 days. Patient will be admitted for 48 hours. Review of Systems Constitutional: Reports fatigue, Reports lethargy, Reports malaise, Reports weight gain, Denies as per HPI, Denies anorexia, Denies chills, Denies chronic headaches, Denies chronic pain, Denies daytime sleepiness, Denies fever, Denies night sweats, Denies poor appetite, Denies sweats, Denies weakness, Denies weight loss Eyes: bilateral as per HPI, bilateral blurred vision Ears: bilateral: decreased hearing Ears, nose, mouth and throat: Reports ant. neck pain, Reports neck fullness/ pressure, Reports sinus pressure, Denies as per HPI, Denies bleeding gums, Denies dental pain, Denies dysphagia, Denies epistaxis, Denies headache, Denies hoarseness, Denies mouth pain, Denies nasal congestion, Denies nasal discharge, Denies neck lump, Denies nose pain, Denies odynophagia, Denies post-nasal drip, Denies sinus pain, Denies swelling in mouth, Denies swelling in throat, Denies sore throat, Denies vertigo, Denies voice changes Cardiovascular: Reports chest pain, Reports decreased exercise tolerance, Reports dyspnea on exertion, Reports edema, Reports lightheadedness, Reports paroxysmal nocturnal dyspnea, Reports shortness of breath, Denies as per HPI, Denies claudication, Denies high blood pressure, Denies irregular heart beat, Denies leg edema, Denies orthopnea, Denies palpitations, Denies phlebitis, Denies rapid heart beat, Denies syncope Respiratory: Reports congestion, Reports dyspnea, Denies as per HPI, Denies cough, Denies cough with sputum, Denies excessive sputum, Denies hemoptysis, Denies home oxygen, Denies pain, Denies pain on inspiration, Denies pleurisy, Denies respiratory infections, Denies sleep apnea, Denies snoring, Denies wheezing Gastrointestinal: Reports abdominal pain, Reports belching, Reports bloating, Reports dyspepsia, Reports early satiety, Reports nausea, Denies as per HPI, Denies BRBPR, Denies change in bowel habits, Denies coffee ground emesis, Denies constipation, Denies diarrhea, Denies excessive gas, Denies heartburn, Denies hematemesis, Denies hematochezia, Denies indigestion, Denies jaundice, Denies lactose intolerance, Denies loss of appetite, Denies melena, Denies vomiting Genitourinary: Reports urgency, Reports urinary frequency, Denies as per HPI, Denies abnormal vaginal bleeding, Denies decreased libido, Denies difficulty conceiving, Denies difficulty voiding, Denies dysmenorrhea, Denies dyspareunia, Denies dysuria, Denies flank pain, Denies genital sores, Denies hematuria, Denies hot flashes, Denies incomplete emptying, Denies kidney stones, Denies menorrhagia, Denies mixed incontinence, Denies nocturia, Denies pelvic pain, Denies post void dribbling, Denies , Denies prolapse symptoms, Denies stress incontinence, Denies urge incontinence, Denies vaginal discharge, Denies vaginal dryness, Denies vaginal itching, Denies vaginal odor Musculoskeletal: Reports gait dysfunction, Reports leg numbness/tingling, Reports limitation of motion, Reports low back pain, Reports myalgias, Reports neck pain, Reports neck stiffness, Denies as per HPI, Denies arm numbness/ tingling, Denies atrophy, Denies fractures, Denies frequent falls, Denies hot joints, Denies loss of height, Denies morning stiffness, Denies muscle cramps, Denies muscle weakness, Denies prior amputations, Denies redness of joints, Denies shooting arm pain, Denies shooting leg pain Musculoskeletal: bilateral: ankle pain Integumentary: Reports pruritus, Reports rash, Denies as per HPI, Denies acne, Denies boils, Denies brittle nails, Denies change in hair/nails, Denies color changes, Denies darkening of skin, Denies depigmentation, Denies dryness, Denies foot/leg ulcers, Denies growths, Denies hirsutism, Denies lesions, Denies onychomycosis, Denies sores, Denies striae, Denies unusual bruising, Denies wounds Neurological: Reports ataxia, Reports numbness, Reports paresthesias, Reports tingling, Reports tremors, Reports weakness, Denies as per HPI, Denies aphasia, Denies balance difficulties, Denies burning pain, Denies change in mentation, Denies change in smell/taste, Denies change in speech, Denies confusion, Denies convulsions, Denies double vision, Denies gait dysfunction, Denies head injury, Denies headaches, Denies hearing difficulties, Denies lack of coordination, Denies loss of vision, Denies memory loss, Denies migraines, Denies motor disturbance, Denies paralysis, Denies seizures, Denies sensory deficit, Denies spasticity, Denies syncope, Denies tic, Denies transient paralysis, Denies vertigo, Denies visual changes Psychiatric: Reports anhedonia, Reports depression, Reports sadness/tearfulness , Denies as per HPI, Denies anxiety, Denies anxiety attacks, Denies change in appetite, Denies change in libido, Denies change in sleep habits, Denies confusion, Denies difficulty concentrating, Denies disorientation, Denies hallucinations, Denies hopelessness, Denies hypersomnia, Denies insomnia, Denies irritability, Denies memory loss, Denies mood swings, Denies paranoia, Denies sleep disturbances, Denies suicidal ideation Endocrine: Reports fatigue, Reports nocturia, Reports polydipsia, Reports polyphagia, Reports polyuria, Denies as per HPI, Denies cold intolerance, Denies deepening of the voice, Denies excessive sweating, Denies excessive thirst, Denies flushing, Denies heat intolerance, Denies high blood sugars, Denies increase in ring/shoe/hat size, Denies low blood sugars, Denies palpitations, Denies proptosis, Denies recent glucocorticoid use, Denies thyroid mass, Denies weight change Hematologic/Lymphatic: Reports easy bruising, Denies as per HPI, Denies easy bleeding, Denies lymphadenopathy, Denies lymphedema, Denies thrombophilia Allergic/Immunologic: Denies as per HPI, Denies allergic rhinitis, Denies anaphylaxis, Denies angioedema, Denies gluten intolerance, Denies persistent infections, Denies seasonal allergies, Denies urticaria, Denies wheezing Past Medical History Past Medical History: Coronary Artery Disease (CAD), Diabetes Mellitus, GERD/ Reflux, Hyperlipidemia, Hypertension, Renal Disease Additional Past Medical History / Comment(s): Chronic renal disease stage III with previous renal transplant, chronic anemia, IDDM with insulin pump, gluten free diet, neuropathy History of Any Multi-Drug Resistant Organisms: None Reported Past Surgical History: Section, Heart Catheterization, Heart Catheterization With Stent, Orthopedic Surgery Additional Past Surgical History / Comment(s): 2004 Kidney transplant at [facility] , bilateral cataracts, retinal peeling in left eye, L achilles tendon repair , L upper arm dialysis fistula, 2 cardiac stents, 2 c/s Past Anesthesia/Blood Transfusion Reactions: Motion Sickness, Postoperative Nausea & Vomiting (PONV) Additional Past Anesthesia/Blood Transfusion Reaction / Comm: PONV after C/S Date of Last Stent Placement:: approx 2012 Past Psychological History: No Psychological Hx Reported Additional Psychological History / Comment(s): . Smoking Status: Never smoker Past Alcohol Use History: Occasional Additional Past Alcohol Use History / Comment(s): Patient is a lifelong nonsmoker. She does drink red wine OCC LESS THEN 7 GLASSES PER WEEK Past Drug Use History: None Reported - Past Family History Father Family Medical History: Myocardial Infarction ([place]) Additional Family Medical History / Comment(s): Father at age 70 from myocardial infarction Mother Family Medical History: Cancer Additional Family Medical History / Comment(s): Mother at age 86 from pneumonia. Sister(s) Family Medical History: Cancer Additional Family Medical History / Comment(s): . Medications and Allergies Home Medications Medication Instructions Recorded Confirmed Type Ascorbic Acid [Vitamin C] 500 mg PO DAILY 04/09/15 11/19/16 History Aspirin EC [Ecotrin Low Dose] 81 mg PO DAILY 04/09/15 11/19/16 History Atenolol [Tenormin] 100 mg PO DAILY 04/09/15 11/19/16 History Cholecalciferol [Vitamin D3] 2,000 unit PO DAILY 04/09/15 11/19/16 History Ferrous Sulfate [Iron (65 MG 325 mg PO DAILY 04/09/15 11/19/16 History Elemental)] Mycophenolate Mofetil [Cellcept] 500 mg PO BID@0900,2100 04/09/15 11/19/16 History Tacrolimus [Prograf] 2 mg PO BID 04/09/15 11/19/16 History predniSONE 5 mg PO DAILY 04/09/15 11/19/16 History HYDROcodone/APAP 5-325MG [[place] 1 tab PO Q6H PRN 03/04/16 11/19/16 History 5-325] Multivits-Min/Iron/FA/Lutein 1 tab PO DAILY 03/04/16 11/19/16 History [Centrum Silver Women Tablet] Nitroglycerin Sl Tabs [Nitrostat] 0.4 mg SUBLINGUAL DIRECTED PRN 03/04/16 History Vitamin B Complex 1 cap PO DAILY 03/04/16 11/19/16 History Albuterol Inhaler [Ventolin Hfa 2 puff INHALATION Q4H PRN 09/16/16 11/19/16 History Inhaler] Glucagon Emergency Kit 1 mg IM DIRECTED PRN 09/16/16 11/19/16 History INSULIN LISPRO (HumaLOG) [humaLOG] See Protocol SQ CONTINUOUS 09/16/16 11/19/16 History Ranitidine HCl [Zantac] 75 mg PO DAILY 09/16/16 11/19/16 History Rutin/Quercetin/Bioflav/Bilber 1 each PO DAILY 11/19/16 11/19/16 History [Bilberry Extract] Allergies Allergy/AdvReac Type Severity Reaction Status Date / Time Sulfa (Sulfonamide Allergy Rash/Hives Verified 11/23/16 18:48 Antibiotics) vancomycin Allergy Rash/Hives Verified 11/23/16 18:48 venom-honey bee Allergy Swelling Verified 11/23/16 18:48 [bee venom (honey bee)] metoprolol tartrate AdvReac Confusion Verified 11/23/16 18:48 [From Lopressor] Physical Exam Vitals: Vital Signs Temp Pulse Pulse Resp BP Pulse Ox 11/24/16 15:18 83 16 165/77 95 11/24/16 14:33 83 16 169/79 95 11/24/16 14:22 97 F L 84 16 168/79 95 11/24/16 14:03 84 16 168/69 11/24/16 13:33 81 16 180/83 95 11/24/16 13:18 83 16 187/83 95 11/24/16 13:03 97 F L 16 191/86 11/24/16 10:50 98.4 F 61 16 170/77 11/24/16 08:42 97.9 F 65 16 193/82 11/24/16 08:40 97.9 F 65 16 193/82 11/24/16 00:15 98.6 F 66 18 145/74 11/23/16 19:08 98.2 F 71 18 158/74 98 Intake and Output 11/24/16 11/24/16 11/24/16 06:59 14:59 22:59 Intake Total 224 Output Total 0 Balance 224 Intake: IV 134 Oral 90 Output: Urine 0 Other: Voiding Method Bedpan # Voids 1 - Constitutional General appearance: no average body habitus, cooperative, no disheveled, no mild distress, no morbidly obese, no acute distress, no obese, no severe distress, no thin - EENT Eyes: no abnormal pupil, no anicteric sclerae, no disc margins sharp, no edentulous, no EOMI, no PERRLA, no fundus normal, no photophobia, no dentition normal, no poor dentition, no ptosis, no scleral icterus, normal appearance ENT: no hard of hearing, no hearing grossly normal, no NA/AT, normal oropharynx , no other, no pharyngeal erythema, no thrush, no tonsillar exudates, no tonsillar swelling Ears: bilateral: normal - Neck Neck: no lymphadenopathy, normal ROM, no other, no rigidity, no stridor, no thyromegaly Carotids: bilateral: upstroke normal Thyroid: bilateral: normal size - Respiratory Respiratory: bilateral: CTA, diminished - Cardiovascular Rhythm: regular Heart sounds: normal: S1, S2 Abnormal Heart Sounds: systolic murmur - Gastrointestinal General gastrointestinal: no absent bowel sounds, decreased bowel sounds, no distended, no hepatomegaly, no hyperactive bowel sounds, normal bowel sounds, no organomegaly, no rigid, no scaphoid, soft, no splenomegaly, no tenderness, no umbilical hernia, no ventral hernia - Integumentary Integumentary: no calor, no cellulitis, no cyanotic, no decreased turgor, no flushed, no jaundiced, normal, no normal turgor, pale, rash, no ulcer - Neurologic Neurologic: CNII-XII intact - Musculoskeletal Musculoskeletal: gait normal, generalized weakness, strength equal bilaterally, no right sided weakness, no left sided weakness - Psychiatric Psychiatric: A&O x's 3, appropriate affect, no intact judgment & insight Results CBC & Chem 7: 11/24/16 20:03 11/24/16 07:48 Labs: Abnormal Lab Results - Last 24 Hours (Table) 11/23/16 11/23/16 11/24/16 Range/Units 20:12 23:54 07:48 RBC 3.18 L (3.80-5.40) m/uL Hgb 9.3 L (11.4-16.0) gm/dL Hct 29.3 L (34.0-46.0) % BUN (7-17) mg/dL Creatinine (0.52-1.04) mg/dL POC Glucose (mg/dL) 153 H 122 H (75-99) mg/dL TIBC (265-497) ug/dL % Saturation (20-50) % 11/24/16 11/24/16 11/24/16 Range/Units 07:48 07:48 13:02 RBC (3.80-5.40) m/uL Hgb (11.4-16.0) gm/dL Hct (34.0-46.0) % BUN 33 H (7-17) mg/dL Creatinine 1.61 H (0.52-1.04) mg/dL POC Glucose (mg/dL) 157 H (75-99) mg/dL TIBC 238 L (265-497) ug/dL % Saturation 17.6 L (20-50) % Assessment and Plan Plan: 1 CAD: With multiple coronary artery disease patent lesion in the RCA with stent still open, had 2 more lesion 1 in the LAD and one in the circumflex which Dr. Ahmadi has done an angioplasty and stent placement successfully. 2 post [place] with acute coronary syndrome: Patient has done well since her last admission. 3 chronic kidney disease stage III post kidney transplant, patient is still seen nephrology regular basis which will be followed daily with repeat BUN/ creatinine. 4 diabetes mellitus type 2: Patient is on insulin pump continue insulin pump watch her Accu-Chek with sliding scales coverage. 5 hyperlipidemia: On Lipitor 20 mg daily. 6 GERD: Patient is on Zantac or H2 jai and doing well. 7 post renal transplant: Patient to continue CellCept 750 mg orally twice a day along with Prograf 2 mg twice a day and prednisone 5 mg daily. 8 hypertension: Doing very well on current medication resume atenolol 100 mg daily. CODE STATUS: Full code. Dr. Ahmadi thank you very much for the consult if I can be any further help to please let me know thank you.
[2016-11-25] MEDS: HYDROmorphone 1 MG/ML 1 ML SYRINGE IVP PRN ×5 (00:09→16:43)
[2016-11-25] MEDS: MYCOPHENOLATE MOFETIL 250 MG CAP PO SCH ×4 (00:32→20:38)
--- NOTE | 2016-11-25 05:43 | PTCA ---
DATE OF SERVICE: 11/24/2016 PROCEDURE: PTCA and stenting of complex tortuous mid circumflex coronary artery, heavily calcified vessel. PERFORMED BY: Dr. Aye Ahmadi. CLINICAL INFORMATION: Mrs. Bharati Red is a 66-year-old lady with history of diabetes, hypertension, hyperlipidemia, previous PCI of ostium and proximal RCA performed in 2012. She also has had previous kidney transplantation and her creatinine runs about 1.6 or so. She came in with unstable angina and had a cardiac cath by Dr. Menendez which revealed that the RCA was patent with a 50% ostial lesion and mid circumflex had a 90% long calcified lesion which was located in the mid segment heavily calcified and tortuous. She was advised intervention but ( ) for the procedure electively after getting the creatinine back down to the base of about 1.5 or 1.6. Risks, benefits, options were discussed at length with the patient and her in the office. PROCEDURE NOTE: Under local anesthesia and strict aseptic precautions, a 6-Azeri introducer was placed in the right femoral artery. A [employer] left 3.5 catheter was used to cannulate the left coronary artery. Whisper wire was used to cross the lesion. Predilatation was performed using a 12 mm long, 2.25 caliber, NC Euphora balloon. I had some difficulty because of extreme tortuosity and calcification but after some difficulty I was able to predilate the lesion. I then advanced a 2.25 caliber, 8 mm long Xience stent and this was deployed at the distal aspect. Another 2.25 caliber, 8 mm long Xience stent was telescoped into the proximal aspect. Excellent angiographic result was achieved. Both stents were deployed at 14 atmospheres. Patient had mild chest pain, no EKG changes. She received 600 mg of Plavix and also received Angiomax bolus and infusion. The sheath was sutured and she was sent to the room in stable condition with the understanding sheath would be pulled around 3:15 today. Excellent angiographic result without complication was noted. Results were discussed with the patient and family.
--- NOTE | 2016-11-25 05:46 | LTR ---
November 24, 2016 KYA CORDOVA MD RE: Neda Bharati Dear Dr. Cordova: Thank you for the opportunity to participate in the care of Mrs. Red. I am pleased to report to you that she had excellent angiographic result. Mid circumflex was stented with 2 drug-eluting stents. I expect she will be discharged tomorrow if she remains stable. Renal function should be followed closely and Nephrology is already following the patient closely. Thank you for the referral and please call for questions. With kindest regards. Sincerely yours, EDMUND VERMA MD
[2016-11-25] MEDS: FERROUS SULFATE 325 MG TAB PO SCH ×2 (06:14→16:57)
[2016-11-25 06:39] LABS: Basophils % (A) 1 %; CHCM 31.3; Eosinophils # (A) 0.1 k/uL (0-0.7); Eosinophils % (A) 2 %; HDW 2.64; HGB 7.1 gm/dL (11.4-16.0); Hypochromasia Slight; Luc # (Auto) 0.24; Luc % (Auto) 4; Lymphocytes # (A) 1.5 k/uL (1.0-4.8); Lymphocytes % (A) 24 %; MCH 28.8 pg (25.0-35.0); MCHC 30.9 g/dL (31.0-37.0); MCV 93.1 fL (80.0-100.0); Mean Platelet Volume 6.9; Monocytes # (A) 0.4 k/uL (0-1.0); Monocytes % (A) 7 %; Neutrophils % (A) 63 %; RBC 2.47 m/uL (3.80-5.40); RDW 14.2 % (11.5-15.5); WBC 6.3 k/uL (3.8-10.6); WBC (Perox) 6.55
[2016-11-25 06:49] LABS: Calcium 8.5 mg/dL (8.4-10.2); Potassium 4.7 mmol/L (3.5-5.1)
[2016-11-25 07:10] LABS: Glucose,Whole Blood 102 mg/dL (75-99)
[2016-11-25] MEDS: ACETYLCYSTEINE 800 MG/4 ML VIAL PO SCH ×2 (10:14→20:39)
[2016-11-25] MEDS: SODIUM FERRIC GLUCONAT-SUCROSE 125 MG in SODIUM CHLORIDE 0.9% 100 ML IVPB SCH (10:14)
[2016-11-25] MEDS: amLODIPine 5 MG TAB PO SCH ×2 (10:15→20:39)
[2016-11-25] MEDS: ATENOLOL 50 MG TAB PO SCH (10:15)
[2016-11-25] MEDS: hydrALAZINE HCL 50 MG TAB PO SCH ×3 (10:17→20:39)
[2016-11-25] MEDS: predniSONE 5 MG TAB PO SCH (10:18)
[2016-11-25] MEDS: ATORVASTATIN 80 MG TAB PO SCH (10:18)
[2016-11-25] MEDS: TACROLIMUS 1 MG CAP PO SCH ×2 (10:18→20:38)
--- NOTE | 2016-11-25 10:21 | P.PN ---
Subjective Patient is seen in follow-up for chronic kidney disease and renal transplant management. She underwent a cardiac catheterization on November 24 and had 2 stents placed to the circumflex. She did develop some bleeding from the groin. She did go for going ultrasound this morning and continued to have bleeding and pressure was applied for quite a bit of time. Her hemoglobin is down to 7.1. She denies any chest pain or shortness of breath. Does admit to pain in her groin. No vomiting or diarrhea. Vital signs are stable. General: The patient appeared well nourished and normally developed. HEENT: Head exam is unremarkable. Neck is without jugular venous distension. LUNGS: Lungs are clear to auscultation and percussion. Breath sounds decreased. HEART: Rate and Rhythm are regular. First and second heart sounds normal. No murmurs, rubs or gallops. ABDOMEN: Abdominal exam reveals normal bowel sounds. Non-tender and non- distended. No evidence of peritonitis. EXTREMITITES: No clubbing, cyanosis, or edema. Objective - Vital Signs Vital signs: Vital Signs Temp 97.1 F L 11/25/16 04:00 Pulse 70 11/25/16 04:00 Resp 16 11/25/16 04:00 BP 136/60 11/25/16 04:00 Pulse Ox 99 11/25/16 04:00 Intake & Output 11/24/16 11/25/16 11/25/16 18:59 06:59 18:59 Intake Total 224 500 Output Total 0 450 Balance 224 50 Weight 106 kg Intake: IV 134 Oral 90 500 Output: Urine 0 450 Other: Voiding Method Bedpan Indwelling Catheter - Labs CBC & Chem 7: 11/25/16 06:00 11/25/16 06:00 Labs: Abnormal Lab Results - Last 24 Hours (Table) 11/24/16 11/24/16 11/24/16 Range/Units 07:48 13:02 18:32 RBC (3.80-5.40) m/uL Hgb (11.4-16.0) gm/dL Hct (34.0-46.0) % MCHC (31.0-37.0) g/dL BUN (7-17) mg/dL Creatinine (0.52-1.04) mg/dL POC Glucose (mg/dL) 157 H 164 H (75-99) mg/dL TIBC 238 L (265-497) ug/dL % Saturation 17.6 L (20-50) % 11/24/16 11/24/16 11/25/16 Range/Units 20:03 21:12 06:00 RBC 2.87 L (3.80-5.40) m/uL Hgb 8.3 L (11.4-16.0) gm/dL Hct 26.2 L (34.0-46.0) % MCHC (31.0-37.0) g/dL BUN 36 H (7-17) mg/dL Creatinine 1.90 H (0.52-1.04) mg/dL POC Glucose (mg/dL) 134 H (75-99) mg/dL TIBC (265-497) ug/dL % Saturation (20-50) % 11/25/16 11/25/16 Range/Units 06:00 07:09 RBC 2.47 L (3.80-5.40) m/uL Hgb 7.1 L (11.4-16.0) gm/dL Hct 23.0 L (34.0-46.0) % MCHC 30.9 L (31.0-37.0) g/dL BUN (7-17) mg/dL Creatinine (0.52-1.04) mg/dL POC Glucose (mg/dL) 102 H (75-99) mg/dL TIBC (265-497) ug/dL % Saturation (20-50) % Assessment and Plan Plan: Assessment: #1. Chronic kidney disease stage III with baseline creatinine near 1.6. #2. Status post living unrelated renal allograft at [facility] from 2004. #3. Diabetes mellitus. #4. Coronary artery disease. #5. Anemia. Iron deficiency present. #6. Nonoliguric acute kidney injury from contrast-induced nephropathy as well as anemia. Creatinine up to 1.9 today. Plan: Ferrlecit 125 mg IV daily for 3 days. First dose today. Repeat hemoglobin at 6 PM and to transfuse if drops below 7. Avoid nephrotoxic agents and hypotensive episodes. Decreased rate of IV fluids to 50 mL an hour. Complete the course of Mucomyst. Repeat electrolytes in the morning. Maintain current immunosuppression with Prograf, CellCept, and prednisone.
--- NOTE | 2016-11-25 10:28 | US ---
EXAMINATION TYPE: US compress pseudoaneurysm RT DATE OF EXAM: 11/25/2016 9:54 AM COMPARISON: NONE CLINICAL HISTORY: Pseudoaneurysm postcardiac catheter. EXAM PERFORMED: Grayscale and color Doppler duplex imaging performed of the groin, post cardiac kim ter to assess for pseudoaneurysm. SIDE PERFORMED: Right Intermittent compression was performed over the course of 55 minutes. Pulses were monitored. There wa s unsuccessful compression of the pseudoaneurysm. IMPRESSION: Unsuccessful pseudoaneurysm compression.
[2016-11-25] MEDS: ASPIRIN 81 MG CHEW PO SCH (10:52)
[2016-11-25] MEDS: CLOPIDOGREL 75 MG TAB PO SCH (10:52)
[2016-11-25] MEDS: RANITIDINE SYRUP 150 MG/10 ML CUP PO SCH (10:52)
--- NOTE | 2016-11-25 11:05 | US ---
EXAMINATION TYPE: US lower ext pseudo artery RT DATE OF EXAM: 11/25/2016 9:50 AM COMPARISON: NONE CLINICAL HISTORY: Hematoma R/O Pseudo aneurysm. S/P heart cath with right groin entry yesterday IMPRESSION: +Pseudo right groin with large thrombus collection= 9.4 x 4.5 x 8.9 cm
--- NOTE | 2016-11-25 12:03 | PN ---
Mrs. Red underwent stenting of mid circumflex yesterday. Following the procedure after the sheath was pulled, she had a lot of bleeding and large hematoma. I came in to see her last night. The hematoma was large but the bleeding seemed to have stopped. I applied FemoStop for a few hours. This morning the hemoglobin dropped nearly 2 grams. We have sent her for an ultrasound. There is evidence of pseudoaneurysm, which is partially clotted with some flow in the neck. Injection is not a good option so we will therefore try compression if she can tolerate it. We will also monitor the hemoglobin closely. Cardiac [place] she is stable. No angina. Hemodynamically stable. Blood pressure control is optimal. Blood pressure is 128/70, pulse rate 70 per minute. S1, S2 heard normally. Short systolic murmur noted. Lungs are clear. ABDOMEN: Soft. Right groin has a large hematoma with a large area of ecchymosis. No significant bruit is audible. Plan is to continue current therapy and hopefully the additional compression will help the pseudoaneurysm to clot off completely. We will follow hemoglobins closely. We will discuss with the patient's as soon as he arrives.
[2016-11-25 12:15] LABS: Glucose,Whole Blood 172 mg/dL (75-99)
--- NOTE | 2016-11-25 12:56 | P.GSCN ---
History of Present Illness Consult date: 11/25/16 Reason for Consult: pseudoaneurysm right groin History of present illness: impression; 1. s/p PCI 11/24/2016 via right femoral approach with interval development of right common femoral hematoma and pseudoaneurysm; patient on clopidogrel and asa 2. 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 s/p renal transplant with GFR = 29 this am/ Stage IV CKD 4. Recent NSTEMI 2016; CAD with PCI 2012 and 2016 5. HLD 6. HTN 7. acute blood loss anemia secondary to #1 plan; 1. case discussed with Dr. Pascual; interventional radiology. Patient is a good candidate for thrombin injection of right femoral pseuodaneurysm. Orders placed. 2. ROLAND of lower extremties to document infrainguinal arterial occlusive disease 3 Vascular surgery team on standby if surgical intervention is necessary in the future 4. Consider transfusion in light of anemia, multiple medical comorbidities 66 y/o woman with aforementioned history; underwent heart catheterization 2016 with interval development of right femoral pseudoaneurysm. Failed compression therapy. Case discussed with Dr. Pascual, interventional radiology; currently feel that patient is a candidate for thrombin injection of right femoral pseudoaneurysm. Multiple significant morbidities that make patient a high risk for surgical intervention. PSHx/ PMHx/ Allergies/Meds/FHx/Habits; reviewed PE: 136/60 AR = 70 AF EXTR; right femoral area with large non-pulsatile mass measuring at least 9cm in diameter; left femoral pulse is palpable; popliteal and pedal pulses are not palpable bilaterally; both feet are viable with capillary refill of 2-3 seconds Ultrasound of right groin reviewed; demonstrates large hematoma; there is a 1x1.5cm pseudoaneurysm with long neck situated adjacent to 9cm hematoma impression/plan as noted above Past Medical History Past Medical History: Coronary Artery Disease (CAD), Diabetes Mellitus, GERD/ Reflux, Hyperlipidemia, Hypertension, Renal Disease Additional Past Medical History / Comment(s): Chronic renal disease stage III with previous renal transplant, chronic anemia, IDDM with insulin pump, gluten free diet, neuropathy History of Any Multi-Drug Resistant Organisms: None Reported Past Surgical History: Section, Heart Catheterization, Heart Catheterization With Stent, Orthopedic Surgery Additional Past Surgical History / Comment(s): 2005 Kidney transplant at [facility] , bilateral cataracts, retinal peeling in left eye, L achilles tendon repair , L upper arm dialysis fistula, 2 cardiac stents, 2 c/s Past Anesthesia/Blood Transfusion Reactions: Motion Sickness, Postoperative Nausea & Vomiting (PONV) Additional Past Anesthesia/Blood Transfusion Reaction / Comm: PONV after C/S Date of Last Stent Placement:: approx 2012 Past Psychological History: No Psychological Hx Reported Additional Psychological History / Comment(s): . Smoking Status: Never smoker Past Alcohol Use History: Occasional Additional Past Alcohol Use History / Comment(s): Patient is a lifelong nonsmoker. She does drink red wine OCC LESS THEN 7 GLASSES PER WEEK Past Drug Use History: None Reported - Past Family History Father Family Medical History: Myocardial Infarction (DC) Additional Family Medical History / Comment(s): Father at age 70 from myocardial infarction Mother Family Medical History: Cancer Additional Family Medical History / Comment(s): Mother at age 86 from pneumonia. Sister(s) Family Medical History: Cancer Additional Family Medical History / Comment(s): . Medications and Allergies Home Medications Medication Instructions Recorded Confirmed Type Ascorbic Acid [Vitamin C] 500 mg PO DAILY 04/09/15 11/19/16 History Aspirin EC [Ecotrin Low Dose] 81 mg PO DAILY 04/09/15 11/19/16 History Atenolol [Tenormin] 100 mg PO DAILY 04/09/15 11/19/16 History Cholecalciferol [Vitamin D3] 2,000 unit PO DAILY 04/09/15 11/19/16 History Ferrous Sulfate [Iron (65 MG 325 mg PO DAILY 04/09/15 11/19/16 History Elemental)] Mycophenolate Mofetil [Cellcept] 500 mg PO BID@0900,2100 04/09/15 11/19/16 History Tacrolimus [Prograf] 2 mg PO BID 04/09/15 11/19/16 History predniSONE 5 mg PO DAILY 04/09/15 11/19/16 History HYDROcodone/APAP 5-325MG [Pratt 1 tab PO Q6H PRN 03/04/16 11/19/16 History 5-325] Multivits-Min/Iron/FA/Lutein 1 tab PO DAILY 03/04/16 11/19/16 History [Centrum Silver Women Tablet] Nitroglycerin Sl Tabs [Nitrostat] 0.4 mg SUBLINGUAL DIRECTED PRN 03/04/16 History Vitamin B Complex 1 cap PO DAILY 03/04/16 11/19/16 History Albuterol Inhaler [Ventolin Hfa 2 puff INHALATION Q4H PRN 09/16/16 11/19/16 History Inhaler] Glucagon Emergency Kit 1 mg IM DIRECTED PRN 09/16/16 11/19/16 History INSULIN LISPRO (HumaLOG) [humaLOG] See Protocol SQ CONTINUOUS 09/16/16 11/19/16 History Ranitidine HCl [Zantac] 75 mg PO DAILY 09/16/16 11/19/16 History Rutin/Quercetin/Bioflav/Bilber 1 each PO DAILY 11/19/16 11/19/16 History [Bilberry Extract] Allergies Allergy/AdvReac Type Severity Reaction Status Date / Time Sulfa (Sulfonamide Allergy Rash/Hives Verified 11/23/16 18:48 Antibiotics) vancomycin Allergy Rash/Hives Verified 11/23/16 18:48 venom-honey bee Allergy Swelling Verified 11/23/16 18:48 [bee venom (honey bee)] metoprolol tartrate AdvReac Confusion Verified 11/23/16 18:48 [From Lopressor] Surgical - Exam Vital Signs Temp Pulse Resp BP Pulse Ox 98.2 F 71 18 158/74 98 11/23/16 19:08 11/23/16 19:08 11/23/16 19:08 11/23/16 19:08 11/23/16 19:08 Results - Labs 11/25/16 06:00 11/25/16 06:00 Abnormal Lab Results - Last 24 Hours (Table) 11/24/16 11/24/16 11/24/16 Range/Units 07:48 13:02 18:32 RBC (3.80-5.40) m/uL Hgb (11.4-16.0) gm/dL Hct (34.0-46.0) % MCHC (31.0-37.0) g/dL BUN (7-17) mg/dL Creatinine (0.52-1.04) mg/dL POC Glucose (mg/dL) 157 H 164 H (75-99) mg/dL TIBC 238 L (265-497) ug/dL % Saturation 17.6 L (20-50) % 11/24/16 11/24/16 11/25/16 Range/Units 20:03 21:12 06:00 RBC 2.87 L (3.80-5.40) m/uL Hgb 8.3 L (11.4-16.0) gm/dL Hct 26.2 L (34.0-46.0) % MCHC (31.0-37.0) g/dL BUN 36 H (7-17) mg/dL Creatinine 1.90 H (0.52-1.04) mg/dL POC Glucose (mg/dL) 134 H (75-99) mg/dL TIBC (265-497) ug/dL % Saturation (20-50) % 11/25/16 11/25/16 11/25/16 Range/Units 06:00 07:09 12:02 RBC 2.47 L (3.80-5.40) m/uL Hgb 7.1 L (11.4-16.0) gm/dL Hct 23.0 L (34.0-46.0) % MCHC 30.9 L (31.0-37.0) g/dL BUN (7-17) mg/dL Creatinine (0.52-1.04) mg/dL POC Glucose (mg/dL) 102 H 172 H (75-99) mg/dL TIBC (265-497) ug/dL % Saturation (20-50) % Diabetes panel 11/25/16 Range/Units 06:00 Sodium 138 (137-145) mmol/L Potassium 4.7 (3.5-5.1) mmol/L Chloride 106 (98-107) mmol/L Carbon Dioxide 23 (22-30) mmol/L BUN 36 H (7-17) mg/dL Creatinine 1.90 H (0.52-1.04) mg/dL Glucose 93 (74-99) mg/dL Calcium 8.5 (8.4-10.2) mg/dL Calcium panel 11/25/16 Range/Units 06:00 Calcium 8.5 (8.4-10.2) mg/dL Pituitary panel 11/25/16 Range/Units 06:00 Sodium 138 (137-145) mmol/L Potassium 4.7 (3.5-5.1) mmol/L Chloride 106 (98-107) mmol/L Carbon Dioxide 23 (22-30) mmol/L BUN 36 H (7-17) mg/dL Creatinine 1.90 H (0.52-1.04) mg/dL Glucose 93 (74-99) mg/dL Calcium 8.5 (8.4-10.2) mg/dL Adrenal panel 11/25/16 Range/Units 06:00 Sodium 138 (137-145) mmol/L Potassium 4.7 (3.5-5.1) mmol/L Chloride 106 (98-107) mmol/L Carbon Dioxide 23 (22-30) mmol/L BUN 36 H (7-17) mg/dL Creatinine 1.90 H (0.52-1.04) mg/dL Glucose 93 (74-99) mg/dL Calcium 8.5 (8.4-10.2) mg/dL
[2016-11-25] MEDS: CHOLECALCIFEROL 1,000 UNIT TAB PO SCH (13:09)
[2016-11-25] MEDS ORDERED: THROMBIN (BOVINE) 5,000 UNIT VIAL MISCELLANE STA (14:09)
--- NOTE | 2016-11-25 14:13 | P.PN ---
Subjective 66-year-old female one of my office patient of known for long time was hospitalized in November 05 of November 10, 2016 for acute myocardial infarction with acute coronary syndrome ended up going for angiogram showed significant stenosis in the LAD and circumflex. Patient kidney function had declined slightly ended up going home after being hydrated and watch her kidney function was seen in the office and see Dr. Ahmadi and patient brought to the hospital on 11/23/2016 for an angioplasty, procedure was done successfully and patient is resting comfortably with no complaint, nephrology consultation was requested and BUN/creatinine to be done an daily basis for the next 2 days. Patient will be admitted for 48 hours. 11/25: Hemoglobin 7.1, BUN 36 and creatinine 1.9. She is status post PTCA and stenting of a complex torturous mid circumflex coronary artery. Nephrology is following. She is continued on Mucomyst and scheduled for IV Ferrlecit 3 days. Patient has developed a right common femoral hematoma and pseudoaneurysm. Dr. Ybarra has evaluated the patient and she is a candidate for thrombin injection of the right femoral pseudoaneurysm. Objective - Vital Signs Vital signs: Vital Signs Temp 97.1 F L 11/25/16 04:00 Pulse 70 11/25/16 04:00 Resp 16 11/25/16 04:00 BP 136/60 11/25/16 04:00 Pulse Ox 99 11/25/16 04:00 Intake & Output 11/24/16 11/25/16 11/25/16 18:59 06:59 18:59 Intake Total 224 500 Output Total 0 450 Balance 224 50 Weight 106 kg Intake: IV 134 Oral 90 500 Output: Urine 0 450 Other: Voiding Method Bedpan Indwelling Catheter - Exam General appearance: no average body habitus, cooperative, no disheveled, no mild distress, no morbidly obese, no acute distress, no obese, no severe distress, no thin - EENT Eyes: no abnormal pupil, no anicteric sclerae, no disc margins sharp, no edentulous, no EOMI, no PERRLA, no fundus normal, no photophobia, no dentition normal, no poor dentition, no ptosis, no scleral icterus, normal appearance ENT: no hard of hearing, no hearing grossly normal, no NA/AT, normal oropharynx , no other, no pharyngeal erythema, no thrush, no tonsillar exudates, no tonsillar swelling Ears: bilateral: normal - Neck Neck: no lymphadenopathy, normal ROM, no other, no rigidity, no stridor, no thyromegaly Carotids: bilateral: upstroke normal Thyroid: bilateral: normal size - Respiratory Respiratory: bilateral: CTA, diminished - Cardiovascular Rhythm: regular Heart sounds: normal: S1, S2 Abnormal Heart Sounds: systolic murmur - Gastrointestinal General gastrointestinal: no absent bowel sounds, decreased bowel sounds, no distended, no hepatomegaly, no hyperactive bowel sounds, normal bowel sounds, no organomegaly, no rigid, no scaphoid, soft, no splenomegaly, no tenderness, no umbilical hernia, no ventral hernia - Integumentary Integumentary: no calor, no cellulitis, no cyanotic, no decreased turgor, no flushed, no jaundiced, normal, no normal turgor, pale, rash, no ulcer - Neurologic Neurologic: CNII-XII intact - Musculoskeletal Musculoskeletal: gait normal, generalized weakness, strength equal bilaterally, no right sided weakness, no left sided weakness - Psychiatric Psychiatric: A&O x's 3, appropriate affect, no intact judgment & insight - Labs CBC & Chem 7: 11/25/16 06:00 11/25/16 06:00 Labs: Abnormal Lab Results - Last 24 Hours (Table) 11/24/16 11/24/16 11/24/16 Range/Units 07:48 13:02 18:32 RBC (3.80-5.40) m/uL Hgb (11.4-16.0) gm/dL Hct (34.0-46.0) % MCHC (31.0-37.0) g/dL BUN (7-17) mg/dL Creatinine (0.52-1.04) mg/dL POC Glucose (mg/dL) 157 H 164 H (75-99) mg/dL TIBC 238 L (265-497) ug/dL % Saturation 17.6 L (20-50) % 11/24/16 11/24/16 11/25/16 Range/Units 20:03 21:12 06:00 RBC 2.87 L (3.80-5.40) m/uL Hgb 8.3 L (11.4-16.0) gm/dL Hct 26.2 L (34.0-46.0) % MCHC (31.0-37.0) g/dL BUN 36 H (7-17) mg/dL Creatinine 1.90 H (0.52-1.04) mg/dL POC Glucose (mg/dL) 134 H (75-99) mg/dL TIBC (265-497) ug/dL % Saturation (20-50) % 11/25/16 11/25/16 Range/Units 06:00 07:09 RBC 2.47 L (3.80-5.40) m/uL Hgb 7.1 L (11.4-16.0) gm/dL Hct 23.0 L (34.0-46.0) % MCHC 30.9 L (31.0-37.0) g/dL BUN (7-17) mg/dL Creatinine (0.52-1.04) mg/dL POC Glucose (mg/dL) 102 H (75-99) mg/dL TIBC (265-497) ug/dL % Saturation (20-50) % Assessment and Plan Plan: 1 CAD: With multiple coronary artery disease patent lesion in the RCA with stent still open, had 2 more lesion 1 in the LAD and one in the circumflex which Dr. Ahmadi has done an angioplasty and stent placement successfully. 2. Right common femoral hematoma and pseudoaneurysm. Dr. Ybarra on consult. Plan for thrombin injection of the right femoral pseudoaneurysm. 3. post MD with acute coronary syndrome: Patient has done well since her last admission. 3 chronic kidney disease stage III post kidney transplant, patient is still seen nephrology regular basis which will be followed daily with repeat BUN/ creatinine. 4 diabetes mellitus type 2: Patient is on insulin pump continue insulin pump watch her Accu-Chek with sliding scales coverage. 5 hyperlipidemia: On Lipitor 20 mg daily. 6 GERD: Patient is on Zantac or H2 jai and doing well. 7 post renal transplant: Patient to continue CellCept 750 mg orally twice a day along with Prograf 2 mg twice a day and prednisone 5 mg daily. 8 hypertension: Doing very well on current medication resume atenolol 100 mg daily. CODE STATUS: Full code. Discharge plan: Return home Impression and plan of care have been directed as dictated by the signing physician. Lainey Cameron nurse practitioner acting as scribe for signing physician. Time with Patient: Greater than 30
--- NOTE | 2016-11-25 15:26 | US ---
EXAMINATION TYPE: US inj pseudoaneurysm DATE OF EXAM: 11/25/2016 3:14 PM COMPARISON: NONE CLINICAL HISTORY: thrombin injection right common femoral pseudoaneu. EXAM PERFORMED: Grayscale and color Doppler duplex imaging performed of the groin, post cardiac kim ter to assess for pseudoaneurysm. SIDE PERFORMED: Right Procedure discussed with patient. Risks, benefits, alternatives and potential complications discussed including potential thrombosis of the [place] arterial vessels. Patient agreeable and informed consen t obtained. Upon application of local anesthesia under maximal barrier and sterile technique a 25-gauge needle wa s placed into the cavity of the pseudoaneurysm. Aspiration with injectable saline was performed in fl exion of the needle. Subsequently approximately 300 units of thrombin was injected with complete thro mbosis of the pseudoaneurysm. Post procedure and preprocedure pulses within the right lower extremity were identical IMPRESSION: Successful pseudoaneurysm thrombin injection under ultrasound guidance.
[2016-11-25 17:49] LABS: Basophils # (A) 0.1 k/uL (0-0.2); Basophils % (A) 1 %; CH 29.6; CHCM 32.7; Eosinophils # (A) 0.1 k/uL (0-0.7); Eosinophils % (A) 1 %; HCT 21.8 % (34.0-46.0); HDW 2.75; Luc # (Auto) 0.23; Luc % (Auto) 2; Lymphocytes % (A) 9 %; MCH 28.9 pg (25.0-35.0); MCHC 31.7 g/dL (31.0-37.0); MCV 91.1 fL (80.0-100.0); Mean Platelet Volume 7.5; Monocytes # (A) 0.7 k/uL (0-1.0); Monocytes % (A) 6 %; Neutrophils # (A) 8.4 k/uL (1.3-7.7); Neutrophils % (A) 80 %; RBC 2.39 m/uL (3.80-5.40); RDW 14.2 % (11.5-15.5); WBC 10.5 k/uL (3.8-10.6)
[2016-11-25 17:51] LABS: HGB 6.9 gm/dL (11.4-16.0)
[2016-11-26 06:30] LABS: Basophils % (A) 0 %; CH 28.9; CHCM 30.7; Eosinophils # (A) 0.2 k/uL (0-0.7); Eosinophils % (A) 2 %; HCT 20.8 % (34.0-46.0); HDW 2.61; Hypochromasia Moderate; Luc # (Auto) 0.26; Luc % (Auto) 3; Lymphocytes # (A) 1.3 k/uL (1.0-4.8); Lymphocytes % (A) 16 %; MCH 29.4 pg (25.0-35.0); MCV 94.6 fL (80.0-100.0); Mean Platelet Volume 6.8; Monocytes # (A) 0.6 k/uL (0-1.0); Monocytes % (A) 7 %; Neutrophils # (A) 5.6 k/uL (1.3-7.7); Neutrophils % (A) 70 %; RDW 14.1 % (11.5-15.5); WBC 7.9 k/uL (3.8-10.6); WBC (Perox) 8.63
[2016-11-26 06:39] LABS: HGB 6.5 gm/dL (11.4-16.0)
[2016-11-26] MEDS: FERROUS SULFATE 325 MG TAB PO SCH ×2 (06:51→22:35)
[2016-11-26 07:20] LABS: Calcium 8.5 mg/dL (8.4-10.2); Potassium 4.6 mmol/L (3.5-5.1)
[2016-11-26] MEDS: SODIUM FERRIC GLUCONAT-SUCROSE 125 MG in SODIUM CHLORIDE 0.9% 100 ML IVPB SCH (08:20)
[2016-11-26] MEDS: MYCOPHENOLATE MOFETIL 250 MG CAP PO SCH ×2 (08:20→23:15)
[2016-11-26] MEDS: CHOLECALCIFEROL 1,000 UNIT TAB PO SCH (08:20)
[2016-11-26] MEDS: ASPIRIN 81 MG CHEW PO SCH (08:21)
[2016-11-26] MEDS: ATORVASTATIN 80 MG TAB PO SCH (08:21)
[2016-11-26] MEDS: amLODIPine 5 MG TAB PO SCH ×2 (08:21→23:15)
[2016-11-26] MEDS: CLOPIDOGREL 75 MG TAB PO SCH (08:21)
[2016-11-26] MEDS: predniSONE 5 MG TAB PO SCH (08:21)
[2016-11-26] MEDS: hydrALAZINE HCL 50 MG TAB PO SCH ×3 (08:21→23:15)
[2016-11-26] MEDS: TACROLIMUS 1 MG CAP PO SCH ×2 (08:21→23:14)
[2016-11-26] MEDS: ATENOLOL 50 MG TAB PO SCH (08:21)
[2016-11-26] MEDS: RANITIDINE SYRUP 150 MG/10 ML CUP PO SCH (08:21)
[2016-11-26] MEDS: ACETYLCYSTEINE 800 MG/4 ML VIAL PO SCH ×2 (08:22→23:15)
--- NOTE | 2016-11-26 08:38 | PN ---
Mrs. Red is a lady with a renal transplantation who runs a creatinine in the range of 1.5. She was brought in for elective PCI with adequate hydration. The PCI was complicated by significant hematoma in the right groin with pseudoaneurysm that required thrombin injection and manual compression, with ultrasound guidance. The hematoma has now improved significantly. The pseudoaneurysm has been clotted off. Hemoglobin; however, has come down from 9.3 preprocedure to 6.5. She is doing remarkably well. Creatinine has gone up to 2.26. I am recommending that we continue hydration, give her 1 unit of packed RBCs along with iron and she can be discharged tomorrow. We will do increased activity, packed RBC transfusion of 1 unit. Blood pressure today 136/70, pulse rate is 70 per minute. S1, S2 heard normally. Short systolic murmur noted. Lungs are clear. Abdomen is soft, nontender. Lower extremities reveal diminished pulses. Right groin hematoma is less obvious, but it is still of a moderate size. There is no bruit. Neurologically, there are no focal deficits. Plan is to transfuse 1 unit of packed RBCs. Continue hydration, recheck a BMP, CBC in the morning and possible discharge in a.m.
--- NOTE | 2016-11-26 09:10 | P.PN ---
Subjective Patient is seen in follow-up for chronic kidney disease and renal transplant management. She underwent a cardiac catheterization on November 24 and had 2 stents placed to the circumflex. She did develop some bleeding from the groin. She did go for going ultrasound revealed a pseudoaneurysm and underwent thrombin injection. Her hemoglobin is down to 6.5. She denies any chest pain or shortness of breath. No vomiting or diarrhea. Her baseline creatinine is 1.6 and is up at 2.2 today. Vital signs are stable. General: The patient appeared well nourished and normally developed. HEENT: Head exam is unremarkable. Neck is without jugular venous distension. LUNGS: Lungs are clear to auscultation and percussion. Breath sounds decreased. HEART: Rate and Rhythm are regular. First and second heart sounds normal. No murmurs, rubs or gallops. ABDOMEN: Abdominal exam reveals normal bowel sounds. Non-tender and non- distended. No evidence of peritonitis. EXTREMITITES: No clubbing, cyanosis, or edema. Objective - Vital Signs Vital signs: Vital Signs Temp 97.6 F 11/26/16 08:35 Pulse 75 11/26/16 08:35 Resp 16 11/26/16 08:35 BP 132/61 11/26/16 08:35 Pulse Ox 97 11/26/16 08:35 Intake & Output 11/25/16 11/26/16 11/26/16 18:59 06:59 18:59 Intake Total 850 200 Output Total 300 Balance 850 -300 200 Weight 101.6 kg Intake: IV 400 Sodium Chloride 0.9% 1, 400 000 ml @ 75 mls/hr IV . [id number] LAWANDA Rx#:[id number] Intake, IV Titration 100 Amount Sodium Ferric Gluconat- 100 Sucrose 125 mg In Sodium Chloride 0.9% 100 ml @ 100 mls/hr IVPB DAILY LAWANDA Rx#:[id number] Oral 350 200 Output: Urine 300 Uretheral (Rosario) 300 Other: Voiding Method Indwelling Catheter Toilet Toilet # Voids 1 - Labs CBC & Chem 7: 11/26/16 06:13 11/26/16 06:13 Labs: Abnormal Lab Results - Last 24 Hours (Table) 11/25/16 11/25/16 11/25/16 Range/Units 12:02 12:02 17:27 RBC 2.39 L (3.80-5.40) m/uL Hgb 6.9 L* (11.4-16.0) gm/dL Hct 21.8 L (34.0-46.0) % Neutrophils # 8.4 H (1.3-7.7) k/uL Sodium (137-145) mmol/L Carbon Dioxide (22-30) mmol/L BUN (7-17) mg/dL Creatinine (0.52-1.04) mg/dL Glucose (74-99) mg/dL POC Glucose (mg/dL) 172 H (75-99) mg/dL Crossmatch See Detail 11/26/16 11/26/16 Range/Units 06:13 06:13 RBC 2.20 L (3.80-5.40) m/uL Hgb 6.5 L* (11.4-16.0) gm/dL Hct 20.8 L (34.0-46.0) % Neutrophils # (1.3-7.7) k/uL Sodium 134 L (137-145) mmol/L Carbon Dioxide 19 L (22-30) mmol/L BUN 41 H (7-17) mg/dL Creatinine 2.26 H (0.52-1.04) mg/dL Glucose 160 H (74-99) mg/dL POC Glucose (mg/dL) (75-99) mg/dL Crossmatch Assessment and Plan Plan: Assessment: #1. Chronic kidney disease stage III with baseline creatinine near 1.6. #2. Status post living unrelated renal allograft at [facility] from 2004. #3. Diabetes mellitus. #4. Coronary artery disease. #5. Anemia. Iron deficiency present. #6. Nonoliguric acute kidney injury from contrast-induced nephropathy as well as anemia. Creatinine up to 2.2 today. #7. Pseudoaneurysm of the groin. Plan: Ferrlecit 125 mg IV daily for 3 days. Second dose today. 1 unit packed red blood cell transfusion today. Avoid nephrotoxic agents and hypotensive episodes. Continue normal saline at 50 mL an hour. Complete the course of Mucomyst. Last dose today. Repeat electrolytes in the morning. Maintain current immunosuppression with Prograf, CellCept, and prednisone. Continue to monitor hemoglobin closely and transfuse as needed.
--- NOTE | 2016-11-26 10:52 | P.PN ---
Progress Note - Text remains hemodynamically stable after thrombin injection of right femoral pseuodoaneurysm 11/25/2016 has complaints of generalized malaise and back pain from laying in bed actively being transfused secondary to acute blood loss anemia AF VSS right leg; hematoma is stable, no pulsatility noted; biphasic right anterior tibial signal, mono to biphasic posterior tibial signal noted; foot is warm and viable imrpession/plan 1. s/p thrombin injection of right femoral pseudoaneurysm 2. acute blood loss anemia 3. known infrapopliteal arterial occlusive disease 4. NOELLE with GFR 22 repeat groin duplex prior to discharge segmental pressures ordered await results of groin duplex following
[2016-11-26] MEDS: SODIUM CHLORIDE 0.9% 1,000 ML IV SCH ×2 (12:01→22:36)
--- NOTE | 2016-11-26 12:04 | P.PN ---
Subjective 66-year-old female one of my office patient of known for long time was hospitalized in November 05 of November 10, 2016 for acute myocardial infarction with acute coronary syndrome ended up going for angiogram showed significant stenosis in the LAD and circumflex. Patient kidney function had declined slightly ended up going home after being hydrated and watch her kidney function was seen in the office and see Dr. Ahmadi and patient brought to the hospital on 11/23/2016 for an angioplasty, procedure was done successfully and patient is resting comfortably with no complaint, nephrology consultation was requested and BUN/creatinine to be done an daily basis for the next 2 days. Patient will be admitted for 48 hours. 11/25: Hemoglobin 7.1, BUN 36 and creatinine 1.9. She is status post PTCA and stenting of a complex torturous mid circumflex coronary artery. Nephrology is following. She is continued on Mucomyst and scheduled for IV Ferrlecit 3 days. Patient has developed a right common femoral hematoma and pseudoaneurysm. Dr. Ybarra has evaluated the patient and she is a candidate for thrombin injection of the right femoral pseudoaneurysm. 11/26: Hemoglobin 6.5, BUN 41 and creatinine 2.26. She is continued on Ferrlecit and scheduled for transfusion 1 unit packed RBCs. IV fluids at 50 mL per hour. Patient will complete Mucomyst today. Repeat Ultrasound of the groin today. Bladder scan as needed. Objective - Vital Signs Vital signs: Vital Signs Temp 97.6 F 11/26/16 08:35 Pulse 75 11/26/16 08:35 Resp 16 11/26/16 08:35 BP 132/61 11/26/16 08:35 Pulse Ox 97 11/26/16 08:35 Intake & Output 11/25/16 11/26/16 11/26/16 18:59 06:59 18:59 Intake Total 850 200 Output Total 300 Balance 850 -300 200 Weight 101.6 kg Intake: IV 400 Sodium Chloride 0.9% 1, 400 000 ml @ 75 mls/hr IV . [id number] LAWANDA Rx#:[id number] Intake, IV Titration 100 Amount Sodium Ferric Gluconat- 100 Sucrose 125 mg In Sodium Chloride 0.9% 100 ml @ 100 mls/hr IVPB DAILY LAWANDA Rx#:[id number] Oral 350 200 Output: Urine 300 Uretheral (Rosario) 300 Other: Voiding Method Indwelling Catheter Toilet Toilet # Voids 1 - Exam General appearance: no average body habitus, cooperative, no disheveled, no mild distress, no morbidly obese, no acute distress, no obese, no severe distress, no thin - EENT Eyes: no abnormal pupil, no anicteric sclerae, no disc margins sharp, no edentulous, no EOMI, no PERRLA, no fundus normal, no photophobia, no dentition normal, no poor dentition, no ptosis, no scleral icterus, normal appearance ENT: no hard of hearing, no hearing grossly normal, no NA/AT, normal oropharynx , no other, no pharyngeal erythema, no thrush, no tonsillar exudates, no tonsillar swelling Ears: bilateral: normal - Neck Neck: no lymphadenopathy, normal ROM, no other, no rigidity, no stridor, no thyromegaly Carotids: bilateral: upstroke normal Thyroid: bilateral: normal size - Respiratory Respiratory: bilateral: CTA, diminished - Cardiovascular Rhythm: regular Heart sounds: normal: S1, S2 Abnormal Heart Sounds: systolic murmur - Gastrointestinal General gastrointestinal: no absent bowel sounds, decreased bowel sounds, no distended, no hepatomegaly, no hyperactive bowel sounds, normal bowel sounds, no organomegaly, no rigid, no scaphoid, soft, no splenomegaly, no tenderness, no umbilical hernia, no ventral hernia - Integumentary Integumentary: Large mass in the left groin, no cellulitis, no cyanotic, no decreased turgor, no flushed, no jaundiced, normal, no normal turgor, pale, rash , no ulcer - Neurologic Neurologic: CNII-XII intact - Musculoskeletal Musculoskeletal: gait normal, generalized weakness, strength equal bilaterally, no right sided weakness, no left sided weakness - Psychiatric Psychiatric: A&O x's 3, appropriate affect, no intact judgment & insight - Labs CBC & Chem 7: 11/26/16 06:13 11/26/16 06:13 Labs: Abnormal Lab Results - Last 24 Hours (Table) 11/25/16 11/25/16 11/25/16 Range/Units 12:02 12:02 17:27 RBC 2.39 L (3.80-5.40) m/uL Hgb 6.9 L* (11.4-16.0) gm/dL Hct 21.8 L (34.0-46.0) % Neutrophils # 8.4 H (1.3-7.7) k/uL Sodium (137-145) mmol/L Carbon Dioxide (22-30) mmol/L BUN (7-17) mg/dL Creatinine (0.52-1.04) mg/dL Glucose (74-99) mg/dL POC Glucose (mg/dL) 172 H (75-99) mg/dL Crossmatch See Detail 11/26/16 11/26/16 Range/Units 06:13 06:13 RBC 2.20 L (3.80-5.40) m/uL Hgb 6.5 L* (11.4-16.0) gm/dL Hct 20.8 L (34.0-46.0) % Neutrophils # (1.3-7.7) k/uL Sodium 134 L (137-145) mmol/L Carbon Dioxide 19 L (22-30) mmol/L BUN 41 H (7-17) mg/dL Creatinine 2.26 H (0.52-1.04) mg/dL Glucose 160 H (74-99) mg/dL POC Glucose (mg/dL) (75-99) mg/dL Crossmatch Assessment and Plan Plan: 1 CAD: With multiple coronary artery disease patent lesion in the RCA with stent still open, had 2 more lesion 1 in the LAD and one in the circumflex which Dr. Ahmadi has done an angioplasty and stent placement successfully. 2. Right common femoral hematoma and pseudoaneurysm. Dr. Ybarra on consult. Plan for thrombin injection of the right femoral pseudoaneurysm. Repeat ultrasound today. 3. post MN with acute coronary syndrome: Patient has done well since her last admission. 4. Acute kidney injury on chronic kidney disease stage III post kidney transplant, patient is still seen nephrology regular basis which will be followed daily with repeat BUN/creatinine. 5. diabetes mellitus type 2: Patient is on insulin pump continue insulin pump watch her Accu-Chek with sliding scales coverage. 6. hyperlipidemia: On Lipitor 20 mg daily. 7. GERD: Patient is on Zantac or H2 jai and doing well. 8. post renal transplant: Patient to continue CellCept 750 mg orally twice a day along with Prograf 2 mg twice a day and prednisone 5 mg daily. 9. hypertension: Doing very well on current medication resume atenolol 100 mg daily. CODE STATUS: Full code. Discharge plan: Return home Impression and plan of care have been directed as dictated by the signing physician. Lainey Cameron nurse practitioner acting as scribe for signing physician. Time with Patient: Greater than 30
[2016-11-26] MEDS: HYDROmorphone 1 MG/ML 1 ML SYRINGE IVP PRN (12:06)
--- NOTE | 2016-11-26 15:47 | US ---
EXAMINATION TYPE: US groin extremity RT DATE OF EXAM: 11/26/2016 3:22 PM COMPARISON: NONE CLINICAL HISTORY: s/p thrombin injection; Scan for Psuedo, patient had compression of psuedo and injection done yesterday. FINDINGS: There still appears to be a psuedoaneurysm in the groin, there is flow in the anterior portion of psu bacilio, neck very difficult to visualize due to large body habitus and extensive swelling. Psuedo measur es 9.4cm IMPRESSION: Persistent pseudoaneurysm right groin.
[2016-11-26] MEDS ORDERED: LINEZOLID 600 MG in DEXTROSE/WATER 1 300ML.BAG IVPB STA (16:57)
[2016-11-26 17:01] LABS: Glucose,Whole Blood 208 mg/dL (75-99)
[2016-11-26] MEDS ORDERED: SUCCINYLCHOLINE CHLORIDE VIAL 200 MG/10 ML VIAL IV ONE (17:38)
[2016-11-26] MEDS ORDERED: LIDOCAINE 1% INJ 10MG/ML (20 ML MDV) ONE (17:38)
[2016-11-26] MEDS ORDERED: NEOSTIGMINE 1 MG/ML 10 ML VIAL ONE (17:38)
[2016-11-26] MEDS ORDERED: ePHEDrine 50 MG/ML 1 ML AMP ONE (17:38)
[2016-11-26] MEDS ORDERED: MIDAZOLAM 2 MG/2 ML VIAL ONE (17:38)
[2016-11-26] MEDS ORDERED: HYDROmorphone (PF) 1 MG/ML ONE (17:38)
[2016-11-26] MEDS ORDERED: fentaNYL (PF) 50 MCG/ML 2 ML AMP ONE (17:38)
[2016-11-26] MEDS ORDERED: GLYCOPYRROLATE 0.2 MG/ML 2 ML VIAL ONE (17:38)
[2016-11-26] MEDS ORDERED: PROPOFOL 10 MG/ML 20 ML VIAL IV ONE (17:38)
[2016-11-26] MEDS ORDERED: CISATRACURIUM 2 MG/ML 5 ML VIAL IV ONE (17:38)
[2016-11-26] MEDS ORDERED: SODIUM CHLORIDE 0.9% 1,000 ML IV ONE ×3 (17:49→19:48)
[2016-11-26] MEDS ORDERED: SODIUM CHLORIDE 0.9% 500 ML with HEPARIN SODIUM,PORCINE 5,000 UNIT IV ONE ×2 (19:13)
[2016-11-26 20:21] LABS: Glucose,Whole Blood 290 mg/dL (75-99)
[2016-11-26] MEDS ORDERED: INSULIN LISPRO (humaLOG) 300 UNIT/3 ML VIAL SQ ONE (20:25)
[2016-11-26] MEDS ORDERED: LEVALBUTEROL NEB 1.25 MG/3 ML AMP INHALATION ONE (20:30)
[2016-11-26 20:35] LABS: CH 29.7; CHCM 32.4; HCT 26.4 % (34.0-46.0); HDW 2.92; MCH 29.1 pg (25.0-35.0); MCHC 31.6 g/dL (31.0-37.0); MCV 92.2 fL (80.0-100.0); Mean Platelet Volume 8.3; RBC 2.86 m/uL (3.80-5.40); RDW 14.2 % (11.5-15.5); WBC 10.1 k/uL (3.8-10.6)
[2016-11-26 20:36] LABS: HGB 8.3 gm/dL (11.4-16.0)
--- NOTE | 2016-11-26 20:40 | P.OP ---
Date of Procedure: 11/26/16 Preoperative Diagnosis: pseuodaneurysm right groin, failed thrombin injection Postoperative Diagnosis: same Procedure(s) Performed: repair of right profunda femoris perforation, evacuation of hematoma Anesthesia: FILIBERTO Surgeon: Yana Ybarra Vacuum Cleaner Operator #1: Walt Guerra Estimated Blood Loss (ml): 400 IV fluids (ml): 1,500 Pathology: none sent Condition: stable Disposition: ICU Indications for Procedure: pseudoaneurysm right groin; failed thrombin injection Operative Findings: perforation of proximal right profunda Description of Procedure: see dictation
[2016-11-26 20:46] LABS: Potassium 4.8 mmol/L (3.5-5.1)
[2016-11-26] MEDS ORDERED: ONDANSETRON 4 MG/2 ML VIAL IVP ONE (20:50)
--- NOTE | 2016-11-26 21:33 | XR ---
EXAMINATION TYPE: XR chest 1V DATE OF EXAM: 11/26/2016 8:48 PM COMPARISON: November 05, 2016 HISTORY: Postoperative dyspnea TECHNIQUE: Single frontal view of the chest is obtained. AP upright FINDINGS: There is no focal air space opacity, pleural effusion, or pneumothorax seen. However, ther e is a fine reticular pattern of increased density throughout the lung parenchyma. This is a very sub tle finding but is associated with thickening of the minor fissure. This may represent mildly elevate d left heart pressures consistent with minimal interstitial phase pulmonary edema if clinically rebecca borated. Mildly enlarged cardiac silhouette noted, similar to the prior study. The pleural spaces are negative. Mediastinal silhouette and bones and soft tissues are unremarkable. IMPRESSION: SUSPECT MINIMAL INTERSTITIAL PHASE PULMONARY EDEMA.
[2016-11-26 21:49] LABS: Glucose,Whole Blood 336 mg/dL (75-99)
[2016-11-26] MEDS ORDERED: INSULIN REGULAR BOLUS (FROM DRIP BAG) IV PRN (22:15)
[2016-11-26] MEDS ORDERED: INSULIN REGULAR 100 UNIT in SODIUM CHLORIDE 0.9% 100 ML IV SCH (22:30)
[2016-11-26 22:40] LABS: Glucose,Whole Blood 313 mg/dL (75-99)
[2016-11-26 23:15] LABS: Glucose,Whole Blood 290 mg/dL (75-99)
[2016-11-27 00:17] LABS: Glucose,Whole Blood 235 mg/dL (75-99)
[2016-11-27 01:15] LABS: Glucose,Whole Blood 187 mg/dL (75-99)
[2016-11-27 02:03] LABS: Glucose,Whole Blood 141 mg/dL (75-99)
[2016-11-27 03:09] LABS: Glucose,Whole Blood 95 mg/dL (75-99)
[2016-11-27] MEDS ORDERED: LEVALBUTEROL NEB 0.31 MG/3 ML AMP INHALATION STA (03:50)
[2016-11-27 04:04] LABS: Glucose,Whole Blood 91 mg/dL (75-99)
[2016-11-27 05:00] LABS: Glucose,Whole Blood 96 mg/dL (75-99)
[2016-11-27 05:14] LABS: INR 1.1 (<1.1); Prothrombin Time 11.1 sec (9.0-12.0)
[2016-11-27 05:18] LABS: Calcium 8.4 mg/dL (8.4-10.2); Magnesium 1.7 mg/dL (1.6-2.3); Phosphorous 4.8 mg/dL (2.5-4.5); Potassium 4.3 mmol/L (3.5-5.1)
[2016-11-27] MEDS: HYDROmorphone 1 MG/ML 1 ML SYRINGE IVP PRN ×4 (05:31→20:53)
[2016-11-27 06:11] LABS: Glucose,Whole Blood 94 mg/dL (75-99)
--- NOTE | 2016-11-27 06:49 | XR ---
EXAMINATION TYPE: XR chest 1V portable DATE OF EXAM: 11/27/2016 6:30 AM COMPARISON: 11/26/2016 HISTORY: Short of breath TECHNIQUE: Single frontal view of the chest is obtained. FINDINGS: Heart appears enlarged. There is coarsening of the lung markings. There is no overt heart failure. Exam is limited by patient size. I see no definite pleural effusion. IMPRESSION: Coarse lung markings similar to yesterday. No heart failure or pulmonary consolidation.
[2016-11-27 06:53] LABS: Basophils % (A) 0 %; CH 29.6; CHCM 32.5; Eosinophils # (A) 0.2 k/uL (0-0.7); Eosinophils % (A) 2 %; HCT 26.4 % (34.0-46.0); HDW 3.18; HGB 8.5 gm/dL (11.4-16.0); Hypochromasia Slight; Luc # (Auto) 0.32; Luc % (Auto) 3; Lymphocytes # (A) 1.2 k/uL (1.0-4.8); Lymphocytes % (A) 13 %; MCH 29.6 pg (25.0-35.0); MCHC 32.2 g/dL (31.0-37.0); MCV 91.8 fL (80.0-100.0); Monocytes # (A) 0.9 k/uL (0-1.0); Monocytes % (A) 10 %; Neutrophils # (A) 6.6 k/uL (1.3-7.7); Neutrophils % (A) 72 %; RBC 2.87 m/uL (3.80-5.40); RDW 14.7 % (11.5-15.5); WBC 9.2 k/uL (3.8-10.6); WBC (Perox) 9.85
[2016-11-27 07:18] LABS: Glucose,Whole Blood 89 mg/dL (75-99)
[2016-11-27 08:03] LABS: Glucose,Whole Blood 127 mg/dL (75-99)
--- NOTE | 2016-11-27 08:25 | OP ---
DATE OF SERVICE: 11/26/2016 SURGEON: Yana Ybarra M.D. BOMB TECHNICIAN: Walt Guerra M.D. PREOPERATIVE DIAGNOSIS: Pseudoaneurysm right femoral artery, failed thrombin injection. POSTOPERATIVE DIAGNOSIS: Pseudoaneurysm right femoral artery, failed thrombin injection with findings noted below. OPERATION: Repair of perforation of right profunda femoris artery, evacuation of right groin hematoma. ANESTHESIA: General via endotracheal tube. ESTIMATED BLOOD LOSS: SPECIMENS REMOVED: COMPLICATIONS: INDICATIONS: The patient is a 66-year-old woman who underwent a heart catheterization on 11/25/2016. She developed a right femoral pseudoaneurysm that was noted on duplex. This pseudoaneurysm underwent thrombin injection procedure. A repeat duplex performed on 11/26/2016 demonstrated that there was flow in the pseudoaneurysm. The patient had increasing pain and for this reason she was taken to the operating room for pseudoaneurysm repair. OPERATIVE FINDINGS: Perforation of the right profundus femoris just distal to the origin. DESCRIPTION OF PROCEDURE: The patient's groin and right leg were prepped and draped in the usual sterile fashion. Longitudinal incision was made along the course of the femoral vessels. This was carried through the skin, subcutaneous tissue through the femoral sheath. The inguinal ligament was identified and the common femoral artery just distal to the ligament was identified, isolated and controlled with vessel loops. The dissection was carried further distally and the tissues overlying the femoral vessels were divided between hemoclips and electrocautery. The superficial femoral artery was identified and controlled with the vessel loops. Bleeding was noted from the proximal profunda femoris artery. The more distal profunda femoris artery was then identified and isolated and the circumflex veins were divided between hemoclips. Perforation in the profunda femoris artery was identified and two 6-0 Prolene sutures weer used to control the perforation. Hemostasis was thus achieved. The remainder of the incision was inspected. Hemostasis was assured with hemoclips, thrombin Gelfoam, electrocautery and FloSeal. The incision was then closed in layers with a #1 PDS used to approximate the femoral sheath, a #1 PDS used to approximate the deep subcutaneous layers and #1 PDS used to approximate the more superficial subcutaneous layers, a 4-0 PDS interrupted used to approximate the most superficial subcutaneous layers. Nylon and griselda to skin and sterile dressings. Needle and sponge counts were correct. Patient had a biphasic signal in the posterior tibial and dorsalis pedis distribution. Her right foot was viable. She was returned to recovery in satisfactory condition. [facility] HOSPITALAshish
--- NOTE | 2016-11-27 08:34 | P.PN ---
Subjective Patient is seen in follow-up for chronic kidney disease and renal transplant management. She underwent a cardiac catheterization on November 24 and had 2 stents placed to the circumflex. She did develop a pseudoaneurysm and underwent evacuation of hematoma on November 26. Her hemoglobin was down to 6.5 for which she did receive packed red blood cell transfusion. Hemoglobin stable at 8.5 this morning. She denies any chest pain or shortness of breath. No vomiting or diarrhea. Her baseline creatinine is 1.6 and is up at 2.3 today. Vital signs are stable. General: The patient appeared well nourished and normally developed. HEENT: Head exam is unremarkable. Neck is without jugular venous distension. LUNGS: Lungs are clear to auscultation and percussion. Breath sounds decreased. HEART: Rate and Rhythm are regular. First and second heart sounds normal. No murmurs, rubs or gallops. ABDOMEN: Abdominal exam reveals normal bowel sounds. Non-tender and non- distended. No evidence of peritonitis. EXTREMITITES: No clubbing, cyanosis, or edema. Objective - Vital Signs Vital signs: Vital Signs Temp 98.2 F 11/27/16 08:00 Pulse 74 11/27/16 08:00 Resp 31 H 11/27/16 08:00 BP 129/61 11/27/16 08:00 Pulse Ox 95 11/27/16 08:00 Intake & Output 11/26/16 11/27/16 11/27/16 18:59 06:59 18:59 Intake Total 2220 1019.375 150 Output Total 350 952 80 Balance 1870 67.375 70 Weight 102.8 kg Intake: IV 1400 700 150 Sodium Chloride 0.9% 1, 600 150 000 ml @ 75 mls/hr IV . [id number] LAWANDA Rx#:[id number] Intake, IV Titration 19.375 Amount Insulin Regular 100 unit 19.375 In Sodium Chloride 0.9% 100 ml @ Per Protocol IV .Q0M LAWANDA Rx#:[id number] Oral 200 300 Blood Product 620 0 Rc As-1 Unit 310 [id number] Rc As-1 Unit 0 0 [id number] Rc As-1 Unit 310 [id number] Output: Urine 350 552 80 Estimated Blood Loss 400 Other: Voiding Method Toilet Indwelling Catheter - Labs CBC & Chem 7: 11/27/16 04:46 11/27/16 04:46 Labs: Abnormal Lab Results - Last 24 Hours (Table) 11/25/16 11/26/16 11/26/16 Range/Units 12:02 16:58 20:08 RBC (3.80-5.40) m/uL Hgb (11.4-16.0) gm/dL Hct (34.0-46.0) % Sodium (137-145) mmol/L Carbon Dioxide (22-30) mmol/L BUN (7-17) mg/dL Creatinine (0.52-1.04) mg/dL Glucose (74-99) mg/dL POC Glucose (mg/dL) 208 H 290 H (75-99) mg/dL Hemoglobin A1c (4.2-6.1) % Calcium (8.4-10.2) mg/dL Phosphorus (2.5-4.5) mg/dL Crossmatch See Detail 11/26/16 11/26/16 11/26/16 Range/Units 20:21 20:21 21:47 RBC 2.86 L (3.80-5.40) m/uL Hgb 8.3 L D (11.4-16.0) gm/dL Hct 26.4 L (34.0-46.0) % Sodium 130 L (137-145) mmol/L Carbon Dioxide 17 L (22-30) mmol/L BUN 39 H (7-17) mg/dL Creatinine 2.25 H (0.52-1.04) mg/dL Glucose 277 H (74-99) mg/dL POC Glucose (mg/dL) 336 H (75-99) mg/dL Hemoglobin A1c (4.2-6.1) % Calcium 8.0 L (8.4-10.2) mg/dL Phosphorus (2.5-4.5) mg/dL Crossmatch 11/26/16 11/26/16 11/27/16 Range/Units 22:39 23:13 00:16 RBC (3.80-5.40) m/uL Hgb (11.4-16.0) gm/dL Hct (34.0-46.0) % Sodium (137-145) mmol/L Carbon Dioxide (22-30) mmol/L BUN (7-17) mg/dL Creatinine (0.52-1.04) mg/dL Glucose (74-99) mg/dL POC Glucose (mg/dL) 313 H 290 H 235 H (75-99) mg/dL Hemoglobin A1c (4.2-6.1) % Calcium (8.4-10.2) mg/dL Phosphorus (2.5-4.5) mg/dL Crossmatch 11/27/16 11/27/16 11/27/16 Range/Units 01:14 02:02 04:46 RBC 2.87 L (3.80-5.40) m/uL Hgb 8.5 L (11.4-16.0) gm/dL Hct 26.4 L (34.0-46.0) % Sodium (137-145) mmol/L Carbon Dioxide (22-30) mmol/L BUN (7-17) mg/dL Creatinine (0.52-1.04) mg/dL Glucose (74-99) mg/dL POC Glucose (mg/dL) 187 H 141 H (75-99) mg/dL Hemoglobin A1c (4.2-6.1) % Calcium (8.4-10.2) mg/dL Phosphorus (2.5-4.5) mg/dL Crossmatch 11/27/16 11/27/16 11/27/16 Range/Units 04:46 04:46 08:02 RBC (3.80-5.40) m/uL Hgb (11.4-16.0) gm/dL Hct (34.0-46.0) % Sodium 132 L (137-145) mmol/L Carbon Dioxide 20 L (22-30) mmol/L BUN 40 H (7-17) mg/dL Creatinine 2.30 H (0.52-1.04) mg/dL Glucose (74-99) mg/dL POC Glucose (mg/dL) 127 H (75-99) mg/dL Hemoglobin A1c 7.0 H (4.2-6.1) % Calcium (8.4-10.2) mg/dL Phosphorus 4.8 H (2.5-4.5) mg/dL Crossmatch Assessment and Plan Plan: Assessment: #1. Chronic kidney disease stage III with baseline creatinine near 1.6. #2. 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 #3. Diabetes mellitus. #4. Coronary artery disease. #5. Anemia. Iron deficiency present. #6. Nonoliguric acute kidney injury from contrast-induced nephropathy as well as anemia. Creatinine up to 2.3 today. #7. Pseudoaneurysm of the groin status post evacuation of hematoma on November 26. Plan: Ferrlecit 125 mg IV daily for 3 days. Third dose today. Avoid nephrotoxic agents and hypotensive episodes. Continue normal saline at 50 mL an hour. Status post Mucomyst. Repeat electrolytes in the morning. Maintain current immunosuppression with Prograf, CellCept, and prednisone. Continue to monitor renal function and urine output.
[2016-11-27 09:11] LABS: Glucose,Whole Blood 178 mg/dL (75-99)
[2016-11-27] MEDS: MYCOPHENOLATE MOFETIL 250 MG CAP PO SCH ×2 (09:14→21:22)
[2016-11-27] MEDS: RANITIDINE SYRUP 150 MG/10 ML CUP PO SCH (09:14)
[2016-11-27] MEDS: FERROUS SULFATE 325 MG TAB PO SCH ×2 (09:14→18:05)
[2016-11-27] MEDS: CLOPIDOGREL 75 MG TAB PO SCH (09:15)
[2016-11-27] MEDS: ATENOLOL 50 MG TAB PO SCH (09:15)
[2016-11-27] MEDS: ASPIRIN 81 MG CHEW PO SCH (09:15)
[2016-11-27] MEDS: predniSONE 5 MG TAB PO SCH (09:16)
[2016-11-27] MEDS: ATORVASTATIN 80 MG TAB PO SCH (09:16)
[2016-11-27] MEDS: TACROLIMUS 1 MG CAP PO SCH ×2 (09:17→21:23)
[2016-11-27] MEDS: SODIUM FERRIC GLUCONAT-SUCROSE 125 MG in SODIUM CHLORIDE 0.9% 100 ML IVPB SCH (09:17)
[2016-11-27] MEDS: oxyCODONE-APAP 7.5-325MG 1 EACH TAB PO PRN (09:48)
--- NOTE | 2016-11-27 10:57 | P.CNPUL ---
History of Present Illness Consult date: 11/27/16 Requesting physician: Heidi Ahmadi Reason for consult: other (Critical care management) Chief complaint: Right groin pain History of present illness: This is a very pleasant 66-year-old female patient who follows with Dr. Cordova as her primary care physician. She has a history of coronary artery disease with previous stent placements, diabetes mellitus utilizing insulin pump, gastroesophageal reflux disease, hyperlipidemia, hypertension, chronic renal disease stage III with previous renal transplant, chronic anemia. She had developed an acute myocardial infarction and was hospitalized from November 05 through the 2016. Her cardiac catheterization revealed significant stenosis in the LAD and circumflex. Her renal function had declined and she was discharged to home and brought back here 11/23/2016 for PTCA and stenting of a complex mid circumflex coronary artery. Following the procedure she had developed significant bleeding and a large hematoma that was eventually controlled. There was evidence of a pseudoaneurysm via ultrasound. She was seen and evaluated by Dr. Jesi dutta from vascular surgery. Thrombin injection was infused to the right femoral pseudoaneurysm on 11/25/2016. Follow-up ultrasound revealed failed thrombin injection and the patient had undergone a repair of perforation of a right profunda femoris artery and evacuation of the right groin hematoma yesterday. She is seen today in consultation for critical care management on 11/27/2016. Presently she is awake and alert in no acute distress. There is been no further bleeding noted from the right groin site. Dressing is dry and intact. His been hemodynamically stable. Not requiring any pressors. She did require 3 units of packed red blood cell infusions. Her current hemoglobin is 8.5. She is not on any pressors. She's been hemodynamically stable. Her chest x-ray does reveal some evidence of mild fluid volume overload. She is maintaining good O2 saturations in the mid 90s on 2 L/m per nasal cannula. Review of Systems 14 point review of system was conducted. All negative other than as mentioned in HPI. Past Medical History Past Medical History: Coronary Artery Disease (CAD), Diabetes Mellitus, GERD/ Reflux, Hyperlipidemia, Hypertension, Renal Disease Additional Past Medical History / Comment(s): Chronic renal disease stage III with previous renal transplant, chronic anemia, IDDM with insulin pump, gluten free diet, neuropathy History of Any Multi-Drug Resistant Organisms: None Reported Past Surgical History: Section, Heart Catheterization, Heart Catheterization With Stent, Orthopedic Surgery Additional Past Surgical History / Comment(s): 2004 Kidney transplant at [facility] , bilateral cataracts, retinal peeling in left eye, L achilles tendon repair , L upper arm dialysis fistula, 2 cardiac stents, 2 c/s Past Anesthesia/Blood Transfusion Reactions: Motion Sickness, Postoperative Nausea & Vomiting (PONV) Additional Past Anesthesia/Blood Transfusion Reaction / Comment(s): PONV after C /S Date of Last Stent Placement:: approx 2012 Past Psychological History: No Psychological Hx Reported Additional Psychological History / Comment(s): . Smoking Status: Never smoker Past Alcohol Use History: Occasional Additional Past Alcohol Use History / Comment(s): Patient is a lifelong nonsmoker. She does drink red wine OCC LESS THEN 7 GLASSES PER WEEK Past Drug Use History: None Reported - Past Family History Father Family Medical History: Myocardial Infarction ([place]) Additional Family Medical History / Comment(s): Father at age 70 from myocardial infarction Mother Family Medical History: Cancer Additional Family Medical History / Comment(s): Mother at age 86 from pneumonia. Sister(s) Family Medical History: Cancer Additional Family Medical History / Comment(s): . Medications and Allergies Home Medications Medication Instructions Recorded Confirmed Type Ascorbic Acid [Vitamin C] 500 mg PO DAILY 04/09/15 11/26/16 History Aspirin EC [Ecotrin Low Dose] 81 mg PO DAILY 04/09/15 11/26/16 History Atenolol [Tenormin] 100 mg PO DAILY 04/09/15 11/26/16 History Cholecalciferol [Vitamin D3] 2,000 unit PO DAILY 04/09/15 11/26/16 History Ferrous Sulfate [Iron (65 MG 325 mg PO DAILY 04/09/15 11/26/16 History Elemental)] Mycophenolate Mofetil [Cellcept] 500 mg PO BID@0900,2100 04/09/15 11/26/16 History Tacrolimus [Prograf] 2 mg PO BID 04/09/15 11/26/16 History predniSONE 5 mg PO DAILY 04/09/15 11/26/16 History HYDROcodone/APAP 5-325MG [[place] 1 tab PO Q6H PRN 03/04/16 11/26/16 History 5-325] Multivits-Min/Iron/FA/Lutein 1 tab PO DAILY 03/04/16 11/26/16 History [Centrum Silver Women Tablet] Nitroglycerin Sl Tabs [Nitrostat] 0.4 mg SUBLINGUAL DIRECTED PRN 03/04/16 History Vitamin B Complex 1 cap PO DAILY 03/04/16 11/26/16 History Albuterol Inhaler [Ventolin Hfa 2 puff INHALATION RT-Q4H PRN 09/16/16 11/26/16 History Inhaler] Glucagon Emergency Kit 1 mg IM DIRECTED PRN 09/16/16 11/26/16 History Ranitidine HCl [Zantac] 75 mg PO DAILY 09/16/16 11/26/16 History Rutin/Quercetin/Bioflav/Bilber 40 mg PO DAILY 11/19/16 11/26/16 History [Bilberry Extract] INSULIN LISPRO (For Pump) [humaLOG 0.01 units SQ-PUMP CONTINUOUS 11/26/16 History (For Pump)] Allergies Allergy/AdvReac Type Severity Reaction Status Date / Time Sulfa (Sulfonamide Allergy Rash/Hives Verified 11/23/16 18:48 Antibiotics) vancomycin Allergy Rash/Hives Verified 11/23/16 18:48 venom-honey bee Allergy Swelling Verified 11/23/16 18:48 [bee venom (honey bee)] metoprolol tartrate AdvReac Confusion Verified 11/23/16 18:48 [From Lopressor] Physical Exam Vitals: Vital Signs Temp Pulse Pulse Pulse Resp BP BP 11/27/16 08:00 98.2 F 74 31 H 129/61 11/27/16 07:00 71 28 H 141/67 11/27/16 06:00 73 24 132/66 11/27/16 05:00 71 25 H 141/75 11/27/16 04:00 64 23 119/69 11/27/16 03:00 67 20 144/69 11/27/16 02:00 67 21 126/61 11/27/16 01:00 69 20 116/55 11/27/16 00:45 70 19 11/27/16 00:30 75 14 116/55 11/27/16 00:15 97.9 F 71 16 134/62 11/27/16 00:00 74 18 140/61 11/26/16 23:45 72 16 139/69 11/26/16 23:30 76 17 131/60 11/26/16 23:15 76 17 119/59 11/26/16 23:00 74 17 125/59 11/26/16 22:45 88 17 124/55 11/26/16 22:30 74 20 130/59 11/26/16 22:15 78 17 116/53 11/26/16 22:00 97.8 F 76 15 133/61 11/26/16 21:20 73 16 131/60 11/26/16 21:05 74 16 132/62 11/26/16 20:50 77 16 132/64 11/26/16 20:35 73 16 134/65 11/26/16 20:20 76 16 145/67 11/26/16 20:04 97.8 F 75 16 140/65 11/26/16 11:39 98.2 F 70 73 16 121/58 Pulse Ox 11/27/16 08:00 95 11/27/16 07:00 96 11/27/16 06:00 97 11/27/16 05:00 95 11/27/16 04:00 98 11/27/16 03:00 97 11/27/16 02:00 97 11/27/16 01:00 96 11/27/16 00:45 96 11/27/16 00:30 97 11/27/16 00:15 98 11/27/16 00:00 94 L 11/26/16 23:45 98 11/26/16 23:30 98 11/26/16 23:15 97 11/26/16 23:00 94 L 11/26/16 22:45 96 11/26/16 22:30 92 L 11/26/16 22:15 97 11/26/16 22:00 98 11/26/16 21:20 97 11/26/16 21:05 98 11/26/16 20:50 98 11/26/16 20:35 97 11/26/16 20:20 94 L 11/26/16 20:04 98 11/26/16 11:39 97 Intake and Output 11/26/16 11/27/16 11/27/16 22:59 06:59 14:59 Intake Total 2120 919.375 200 Output Total 650 302 130 Balance 1470 617.375 70 Intake: IV 1500 600 200 Sodium Chloride 0.9% 1, 600 200 000 ml @ 75 mls/hr IV . [id number] LAWANDA Rx#:[id number] Intake, IV Titration 19.375 0 Amount Insulin Regular 100 unit 19.375 0 In Sodium Chloride 0.9% 100 ml @ Per Protocol IV .Q0M LAWANDA Rx#:[id number] Oral 300 Blood Product 620 0 Rc As-1 Unit 310 [id number] Rc As-1 Unit 0 [id number] Rc As-1 Unit 310 [id number] Output: Urine 250 302 130 Estimated Blood Loss 400 Other: Voiding Method Indwelling Catheter Weight 102.8 kg GENERAL EXAM: Obese. Alert, comfortable in no apparent distress. HEAD: Normocephalic. EYES: Normal reaction of pupils, equal size. NOSE: Clear with pink turbinates. THROAT: No erythema or exudates. NECK: No masses, no JVD. CHEST: No chest wall deformity. LUNGS: Equal air entry with no crackles, wheeze, rhonchi or dullness. CVS: S1 and S2 normal with no audible murmurs, regular rhythm. ABDOMEN: Obese, soft, normal bowel sounds, no guarding or rigidity. Extremities: Dressing to the right groin is dry and intact. There is trace peripheral edema. Peripheral pulses are intact. Results - Laboratory Findings CBC and BMP: 11/27/16 04:46 11/27/16 04:46 PT/INR, D-dimer PT 11.1 sec (9.0-12.0) 11/27/16 04:46 INR 1.1 (<1.1) 11/27/16 04:46 Abnormal lab findings: Abnormal Labs 11/23/16 11/23/16 11/24/16 20:12 23:54 07:48 RBC 3.18 L Hgb 9.3 L Hct 29.3 L MCHC Neutrophils # Sodium Carbon Dioxide BUN Creatinine Glucose POC Glucose (mg/dL) 153 H 122 H Hemoglobin A1c Calcium Phosphorus TIBC % Saturation Crossmatch 11/24/16 11/24/16 11/24/16 07:48 07:48 13:02 RBC Hgb Hct MCHC Neutrophils # Sodium Carbon Dioxide BUN 33 H Creatinine 1.61 H Glucose POC Glucose (mg/dL) 157 H Hemoglobin A1c Calcium Phosphorus TIBC 238 L % Saturation 17.6 L Crossmatch 11/24/16 11/24/16 11/24/16 18:32 20:03 21:12 RBC 2.87 L Hgb 8.3 L Hct 26.2 L MCHC Neutrophils # Sodium Carbon Dioxide BUN Creatinine Glucose POC Glucose (mg/dL) 164 H 134 H Hemoglobin A1c Calcium Phosphorus TIBC % Saturation Crossmatch 11/25/16 11/25/16 11/25/16 06:00 06:00 07:09 RBC 2.47 L Hgb 7.1 L Hct 23.0 L MCHC 30.9 L Neutrophils # Sodium Carbon Dioxide BUN 36 H Creatinine 1.90 H Glucose POC Glucose (mg/dL) 102 H Hemoglobin A1c Calcium Phosphorus TIBC % Saturation Crossmatch 11/25/16 11/25/16 11/25/16 12:02 12:02 17:27 RBC 2.39 L Hgb 6.9 L* Hct 21.8 L MCHC Neutrophils # 8.4 H Sodium Carbon Dioxide BUN Creatinine Glucose POC Glucose (mg/dL) 172 H Hemoglobin A1c Calcium Phosphorus TIBC % Saturation Crossmatch See Detail 11/26/16 11/26/16 11/26/16 06:13 06:13 16:58 RBC 2.20 L Hgb 6.5 L* Hct 20.8 L MCHC Neutrophils # Sodium 134 L Carbon Dioxide 19 L BUN 41 H Creatinine 2.26 H Glucose 160 H POC Glucose (mg/dL) 208 H Hemoglobin A1c Calcium Phosphorus TIBC % Saturation Crossmatch 11/26/16 11/26/16 11/26/16 20:08 20:21 20:21 RBC 2.86 L Hgb 8.3 L D Hct 26.4 L MCHC Neutrophils # Sodium 130 L Carbon Dioxide 17 L BUN 39 H Creatinine 2.25 H Glucose 277 H POC Glucose (mg/dL) 290 H Hemoglobin A1c Calcium 8.0 L Phosphorus TIBC % Saturation Crossmatch 11/26/16 11/26/16 11/26/16 21:47 22:39 23:13 RBC Hgb Hct MCHC Neutrophils # Sodium Carbon Dioxide BUN Creatinine Glucose POC Glucose (mg/dL) 336 H 313 H 290 H Hemoglobin A1c Calcium Phosphorus TIBC % Saturation Crossmatch 11/27/16 11/27/16 11/27/16 00:16 01:14 02:02 RBC Hgb Hct MCHC Neutrophils # Sodium Carbon Dioxide BUN Creatinine Glucose POC Glucose (mg/dL) 235 H 187 H 141 H Hemoglobin A1c Calcium Phosphorus TIBC % Saturation Crossmatch 11/27/16 11/27/16 11/27/16 04:46 04:46 04:46 RBC 2.87 L Hgb 8.5 L Hct 26.4 L MCHC Neutrophils # Sodium 132 L Carbon Dioxide 20 L BUN 40 H Creatinine 2.30 H Glucose POC Glucose (mg/dL) Hemoglobin A1c 7.0 H Calcium Phosphorus 4.8 H TIBC % Saturation Crossmatch 11/27/16 11/27/16 08:02 09:10 RBC Hgb Hct MCHC Neutrophils # Sodium Carbon Dioxide BUN Creatinine Glucose POC Glucose (mg/dL) 127 H 178 H Hemoglobin A1c Calcium Phosphorus TIBC % Saturation Crossmatch - Diagnostic Findings Chest x-ray: image reviewed (Mild pulmonary venous congestion) Assessment and Plan Plan: Impression: #1 Coronary artery disease status post stenting to the mid circumflex. #2 Right profunda femoris perforation with hematoma. Failed thrombin injection. Status post open repair. Postoperative day #1. #3 Postprocedure anemia requiring 3 units of packed red blood cells. Her hemoglobin 8.5. #4 Reveals history of coronary artery disease with stent placements. #5 Diabetes mellitus requiring insulin pump. #6 Chronic renal disease, stage III with previous renal transplant, maintained on CellCept and prednisone. #7 Hyperlipidemia. #8 Hypertension. Plan: The patient was seen and evaluated by Dr. Wilkinson. Her chest x-ray and labs were reviewed. She is currently stable from the pulmonary and critical care standpoint. She is maintaining good O2 saturations in the mid 90s on 2 L/m per nasal cannula. She's been hemodynamically stable. She could be transferred out of the intensive care unit today. We'll see her now on as-needed basis.
[2016-11-27] MEDS ORDERED: LEVALBUTEROL NEB 1.25 MG/3 ML AMP INHALATION PRN (11:08)
[2016-11-27] MEDS: amLODIPine 5 MG TAB PO SCH ×2 (11:22→21:22)
[2016-11-27] MEDS: hydrALAZINE HCL 50 MG TAB PO SCH ×3 (11:22→21:22)
[2016-11-27] MEDS: CHOLECALCIFEROL 1,000 UNIT TAB PO SCH (11:24)
[2016-11-27] MEDS: LEVALBUTEROL NEB 1.25 MG/3 ML AMP INHALATION SCH ×3 (11:45→20:47)
--- NOTE | 2016-11-27 11:49 | XR ---
EXAMINATION TYPE: XR chest 1V portable DATE OF EXAM: 11/27/2016 11:16 AM Comparison: 11/27/2016 Clinical History: 66-year-old female shortness of breath Findings: Heart is borderline to mildly enlarged. Diffuse interstitial prominence is present. Strandy atelectas is in the lower lungs. No consolidation or significant pleural effusion. Impression: Borderline cardiomegaly and interstitial prominence which may in part be chronic. Correlate to exclud e mild CHF.
--- NOTE | 2016-11-27 11:51 | P.PN ---
Progress Note - Text feels much better today; leg feels better as well no dyspnea but remains on O2 tolerating diet, no nausea off insulin drip and back on insulin pump AF VSS I/o = 2120/650 (11/26/2016) 919/300 (11/26/2016) lungs; harsh breath sound all freitas right leg; incision is clean, no hematoma, contusion is stable, biphasic signal in dorsalis pedis and posterior tibial, moderate right leg edema, left leg demonstrates trace edema, biphasic dorsalis pedis and posterior tibial pulses; both feet viable Labs; reviewed; Hg/HCT stable; GFR stable impression/plan 1. s/p repair of pseudoaneurysm right groin hemodynamically stable, groin incision appears stable, foot is viable dressing changes every day with chlorhexidine, dry dressing isatu hose to right leg to control edema OK to shower no tub bath PT/OT discharge planning; home health nurse vs. subacute rehab 2. suspected volume overload by I/O and increasing lung markings on CXR all fluids off d/c cordon and STRICT I&O further management as per nephrology/internal medicine/cardiology following Dr. Guerra with be making rounds on 11/28/2016 and 11/29/2016
[2016-11-27 12:06] LABS: Glucose,Whole Blood 154 mg/dL (75-99)
[2016-11-27 12:36] LABS: Glucose,Whole Blood 145 mg/dL (75-99)
[2016-11-27] MEDS ORDERED: LEVALBUTEROL NEB 1.25 MG/3 ML AMP INHALATION SCH (13:00)
--- NOTE | 2016-11-27 14:38 | P.PN ---
Subjective 66-year-old female one of my office patient of known for long time was hospitalized in November 05 of November 10, 2016 for acute myocardial infarction with acute coronary syndrome ended up going for angiogram showed significant stenosis in the LAD and circumflex. Patient kidney function had declined slightly ended up going home after being hydrated and watch her kidney function was seen in the office and see Dr. Ahmadi and patient brought to the hospital on 11/23/2016 for an angioplasty, procedure was done successfully and patient is resting comfortably with no complaint, nephrology consultation was requested and BUN/creatinine to be done an daily basis for the next 2 days. Patient will be admitted for 48 hours. 11/25: Hemoglobin 7.1, BUN 36 and creatinine 1.9. She is status post PTCA and stenting of a complex torturous mid circumflex coronary artery. Nephrology is following. She is continued on Mucomyst and scheduled for IV Ferrlecit 3 days. Patient has developed a right common femoral hematoma and pseudoaneurysm. Dr. Ybarra has evaluated the patient and she is a candidate for thrombin injection of the right femoral pseudoaneurysm. 11/26: Hemoglobin 6.5, BUN 41 and creatinine 2.26. She is continued on Ferrlecit and scheduled for transfusion 1 unit packed RBCs. IV fluids at 50 mL per hour. Patient will complete Mucomyst today. Repeat Ultrasound of the groin today. Bladder scan as needed. 11/27: Yesterday patient underwent repair of perforation of a right profunda femoris artery and evacuation of right groin hematoma with Dr. Ybarra and was subsequently admitted to the ICU. She has a Rosario catheter in place and urine output has been adequate. Rosario will be discontinued this morning. She states she has much decreased pain to the right groin area. She denies any chest pain , shortness of breath. PT is working with her today. Patient is receiving her third dose of Ferrlecit. She has completed her course of Mucomyst. IV fluids at 50 mL per hour. Repeat BUN 40 and creatinine 2.3. Repeat chest x-ray shows borderline cardiomegaly and interstitial prominence which may be chronic. Correlate to exclude mild CHF. Objective - Vital Signs Vital signs: Vital Signs Temp 97.9 F 11/27/16 11:00 Pulse 70 11/27/16 11:38 Resp 29 H 11/27/16 11:00 BP 138/64 01/27/17 11:00 Pulse Ox 98 11/27/16 11:30 Intake & Output 11/26/16 11/27/16 11/27/16 18:59 06:59 18:59 Intake Total 2220 1019.375 260 Output Total 350 952 270 Balance 1870 67.375 -10 Weight 102.8 kg 102.8 kg Intake: IV 1400 700 200 Sodium Chloride 0.9% 1, 600 200 000 ml @ 75 mls/hr IV . [id number] LAWANDA Rx#:[id number] Intake, IV Titration 19.375 0 Amount Insulin Regular 100 unit 19.375 0 In Sodium Chloride 0.9% 100 ml @ Per Protocol IV .Q0M LAWANDA Rx#:[id number] Oral 200 300 60 Blood Product 620 0 Rc As-1 Unit 310 [id number] Rc As-1 Unit 0 0 [id number] Rc As-1 Unit 310 [id number] Output: Urine 350 552 270 Estimated Blood Loss 400 Other: Voiding Method Toilet Indwelling Catheter Indwelling Catheter # Voids 1 - Exam General appearance: no average body habitus, cooperative, no disheveled, no mild distress, no morbidly obese, no acute distress, no obese, no severe distress, no thin - EENT Eyes: no abnormal pupil, no anicteric sclerae, no disc margins sharp, no edentulous, no EOMI, no PERRLA, no fundus normal, no photophobia, no dentition normal, no poor dentition, no ptosis, no scleral icterus, normal appearance ENT: no hard of hearing, no hearing grossly normal, no NA/AT, normal oropharynx , no other, no pharyngeal erythema, no thrush, no tonsillar exudates, no tonsillar swelling Ears: bilateral: normal - Neck Neck: no lymphadenopathy, normal ROM, no other, no rigidity, no stridor, no thyromegaly Carotids: bilateral: upstroke normal Thyroid: bilateral: normal size - Respiratory Respiratory: bilateral: CTA, diminished - Cardiovascular Rhythm: regular Heart sounds: normal: S1, S2 Abnormal Heart Sounds: systolic murmur - Gastrointestinal General gastrointestinal: no absent bowel sounds, decreased bowel sounds, no distended, no hepatomegaly, no hyperactive bowel sounds, normal bowel sounds, no organomegaly, no rigid, no scaphoid, soft, no splenomegaly, no tenderness, no umbilical hernia, no ventral hernia - Integumentary Integumentary: No mass or hematoma in the right groin, less tender, no cellulitis, no cyanotic, no decreased turgor, no flushed, no jaundiced, normal, no normal turgor, pale, rash, no ulcer - Neurologic Neurologic: CNII-XII intact - Musculoskeletal Musculoskeletal: gait normal, generalized weakness, strength equal bilaterally, no right sided weakness, no left sided weakness - Psychiatric Psychiatric: A&O x's 3, appropriate affect, no intact judgment & insight - Labs CBC & Chem 7: 11/27/16 04:46 11/27/16 04:46 Labs: Abnormal Lab Results - Last 24 Hours (Table) 11/25/16 11/26/16 11/26/16 Range/Units 12:02 16:58 20:08 RBC (3.80-5.40) m/uL Hgb (11.4-16.0) gm/dL Hct (34.0-46.0) % Sodium (137-145) mmol/L Carbon Dioxide (22-30) mmol/L BUN (7-17) mg/dL Creatinine (0.52-1.04) mg/dL Glucose (74-99) mg/dL POC Glucose (mg/dL) 208 H 290 H (75-99) mg/dL Hemoglobin A1c (4.2-6.1) % Calcium (8.4-10.2) mg/dL Phosphorus (2.5-4.5) mg/dL Crossmatch See Detail 11/26/16 11/26/16 11/26/16 Range/Units 20:21 20:21 21:47 RBC 2.86 L (3.80-5.40) m/uL Hgb 8.3 L D (11.4-16.0) gm/dL Hct 26.4 L (34.0-46.0) % Sodium 130 L (137-145) mmol/L Carbon Dioxide 17 L (22-30) mmol/L BUN 39 H (7-17) mg/dL Creatinine 2.25 H (0.52-1.04) mg/dL Glucose 277 H (74-99) mg/dL POC Glucose (mg/dL) 336 H (75-99) mg/dL Hemoglobin A1c (4.2-6.1) % Calcium 8.0 L (8.4-10.2) mg/dL Phosphorus (2.5-4.5) mg/dL Crossmatch 11/26/16 11/26/16 11/27/16 Range/Units 22:39 23:13 00:16 RBC (3.80-5.40) m/uL Hgb (11.4-16.0) gm/dL Hct (34.0-46.0) % Sodium (137-145) mmol/L Carbon Dioxide (22-30) mmol/L BUN (7-17) mg/dL Creatinine (0.52-1.04) mg/dL Glucose (74-99) mg/dL POC Glucose (mg/dL) 313 H 290 H 235 H (75-99) mg/dL Hemoglobin A1c (4.2-6.1) % Calcium (8.4-10.2) mg/dL Phosphorus (2.5-4.5) mg/dL Crossmatch 11/27/16 11/27/16 11/27/16 Range/Units 01:14 02:02 04:46 RBC 2.87 L (3.80-5.40) m/uL Hgb 8.5 L (11.4-16.0) gm/dL Hct 26.4 L (34.0-46.0) % Sodium (137-145) mmol/L Carbon Dioxide (22-30) mmol/L BUN (7-17) mg/dL Creatinine (0.52-1.04) mg/dL Glucose (74-99) mg/dL POC Glucose (mg/dL) 187 H 141 H (75-99) mg/dL Hemoglobin A1c (4.2-6.1) % Calcium (8.4-10.2) mg/dL Phosphorus (2.5-4.5) mg/dL Crossmatch 11/27/16 11/27/16 11/27/16 Range/Units 04:46 04:46 08:02 RBC (3.80-5.40) m/uL Hgb (11.4-16.0) gm/dL Hct (34.0-46.0) % Sodium 132 L (137-145) mmol/L Carbon Dioxide 20 L (22-30) mmol/L BUN 40 H (7-17) mg/dL Creatinine 2.30 H (0.52-1.04) mg/dL Glucose (74-99) mg/dL POC Glucose (mg/dL) 127 H (75-99) mg/dL Hemoglobin A1c 7.0 H (4.2-6.1) % Calcium (8.4-10.2) mg/dL Phosphorus 4.8 H (2.5-4.5) mg/dL Crossmatch 11/27/16 Range/Units 09:10 RBC (3.80-5.40) m/uL Hgb (11.4-16.0) gm/dL Hct (34.0-46.0) % Sodium (137-145) mmol/L Carbon Dioxide (22-30) mmol/L BUN (7-17) mg/dL Creatinine (0.52-1.04) mg/dL Glucose (74-99) mg/dL POC Glucose (mg/dL) 178 H (75-99) mg/dL Hemoglobin A1c (4.2-6.1) % Calcium (8.4-10.2) mg/dL Phosphorus (2.5-4.5) mg/dL Crossmatch Assessment and Plan Plan: 1 CAD: With multiple coronary artery disease patent lesion in the RCA with stent still open, had 2 more lesion 1 in the LAD and one in the circumflex which Dr. Ahmadi has done an angioplasty and stent placement successfully. 2. Right common femoral hematoma and pseudoaneurysm. Dr. Ybarra on consult. Plan for thrombin injection of the right femoral pseudoaneurysm. Status post repair of pseudoaneurysm right groin. 3. post IN with acute coronary syndrome: Patient has done well since her last admission. 4. Acute kidney injury on chronic kidney disease stage III post kidney transplant, patient is still seen nephrology regular basis which will be followed daily with repeat BUN/creatinine. 5. diabetes mellitus type 2: Patient is on insulin pump continue insulin pump watch her Accu-Chek with sliding scales coverage. 6. hyperlipidemia: On Lipitor 20 mg daily. 7. GERD: Patient is on Zantac or H2 jai and doing well. 8. post renal transplant: Patient to continue CellCept 750 mg orally twice a day along with Prograf 2 mg twice a day and prednisone 5 mg daily. 9. hypertension: Doing very well on current medication resume atenolol 100 mg daily. CODE STATUS: Full code. Discharge plan: Return home Impression and plan of care have been directed as dictated by the signing physician. Lainey Cameron nurse practitioner acting as scribe for signing physician. Time with Patient: Greater than 30
[2016-11-27 18:12] LABS: Glucose,Whole Blood 96 mg/dL (75-99)
[2016-11-27 20:41] LABS: Glucose,Whole Blood 115 mg/dL (75-99)
[2016-11-28] MEDS: HYDROmorphone 1 MG/ML 1 ML SYRINGE IVP PRN (01:08)
--- NOTE | 2016-11-28 01:41 | P.PN ---
Progress Note - Text 66 old white female, patient had a pseudoaneurysm post heart catheterization patient had a amputation of the abdomen and repair of the pseudoaneurysm right groin has some ecchymosis and some swelling incision site looks clean pulses are present but the Doppler patient stable and treated with medical management management hemoglobin is 8.1
[2016-11-28 02:04] LABS: Glucose,Whole Blood 88 mg/dL (75-99)
[2016-11-28 04:49] LABS: Glucose,Whole Blood 348 mg/dL (75-99)
[2016-11-28 04:49] LABS: Glucose,Whole Blood 419 mg/dL (75-99)
[2016-11-28 05:06] LABS: Basophils % (A) 0 %; CH 29.6; CHCM 32.7; Eosinophils # (A) 0.3 k/uL (0-0.7); Eosinophils % (A) 3 %; HCT 25.9 % (34.0-46.0); HDW 3.17; HGB 8.4 gm/dL (11.4-16.0); Luc # (Auto) 0.28; Luc % (Auto) 3; Lymphocytes # (A) 1.1 k/uL (1.0-4.8); Lymphocytes % (A) 10 %; MCH 29.5 pg (25.0-35.0); MCHC 32.3 g/dL (31.0-37.0); MCV 91.4 fL (80.0-100.0); Mean Platelet Volume 7.6; Monocytes % (A) 9 %; Neutrophils # (A) 8.6 k/uL (1.3-7.7); Neutrophils % (A) 76 %; RBC 2.83 m/uL (3.80-5.40); RDW 14.9 % (11.5-15.5); WBC 11.3 k/uL (3.8-10.6); WBC (Perox) 11.74
[2016-11-28 05:16] LABS: Calcium 8.8 mg/dL (8.4-10.2); Potassium 4.6 mmol/L (3.5-5.1)
[2016-11-28 07:27] LABS: Glucose,Whole Blood 95 mg/dL (75-99)
[2016-11-28 07:38] LABS: Glucose,Whole Blood 98 mg/dL (75-99)
--- NOTE | 2016-11-28 09:03 | P.PN ---
Subjective 66-year-old female one of my office patient of known for long time was hospitalized in November 05 of November 10, 2016 for acute myocardial infarction with acute coronary syndrome ended up going for angiogram showed significant stenosis in the LAD and circumflex. Patient kidney function had declined slightly ended up going home after being hydrated and watch her kidney function was seen in the office and see Dr. Ahmadi and patient brought to the hospital on 11/23/2016 for an angioplasty, procedure was done successfully and patient is resting comfortably with no complaint, nephrology consultation was requested and BUN/creatinine to be done an daily basis for the next 2 days. Patient will be admitted for 48 hours. 11/25: Hemoglobin 7.1, BUN 36 and creatinine 1.9. She is status post PTCA and stenting of a complex torturous mid circumflex coronary artery. Nephrology is following. She is continued on Mucomyst and scheduled for IV Ferrlecit 3 days. Patient has developed a right common femoral hematoma and pseudoaneurysm. Dr. Ybarra has evaluated the patient and she is a candidate for thrombin injection of the right femoral pseudoaneurysm. 11/26: Hemoglobin 6.5, BUN 41 and creatinine 2.26. She is continued on Ferrlecit and scheduled for transfusion 1 unit packed RBCs. IV fluids at 50 mL per hour. Patient will complete Mucomyst today. Repeat Ultrasound of the groin today. Bladder scan as needed. 11/27: Yesterday patient underwent repair of perforation of a right profunda femoris artery and evacuation of right groin hematoma with Dr. Ybarra and was subsequently admitted to the ICU. She has a Rosario catheter in place and urine output has been adequate. Rosario will be discontinued this morning. She states she has much decreased pain to the right groin area. She denies any chest pain , shortness of breath. PT is working with her today. Patient is receiving her third dose of Ferrlecit. She has completed her course of Mucomyst. IV fluids at 50 mL per hour. Repeat BUN 40 and creatinine 2.3. Repeat chest x-ray shows borderline cardiomegaly and interstitial prominence which may be chronic. Correlate to exclude mild CHF. 11/28: Patient states that the groin site remains better in regards to pain. Site is warm to the touch. She did have a temperature of 101.2 this morning blood cultures, urinalysis urine culture and chest x-ray have been ordered. Patient does not have a cough or sputum production. She is complaining of feeling achy all over. She has minimal urine output Rosario was removed last night. Morning blood sugar was 95 and patient is on insulin pump. BUN 40 with creatinine 2.7 and hemoglobin 8.4. Infectious disease consult added. Patient is complaining of sore throat for which Cepacol lozenges added. Objective - Vital Signs Vital signs: Vital Signs Temp 97.7 F 11/28/16 04:00 Pulse 80 11/28/16 04:00 Resp 23 11/28/16 04:00 BP 143/66 11/28/16 04:00 Pulse Ox 87 L 11/28/16 04:00 Intake & Output 11/27/16 11/28/16 11/28/16 18:59 06:59 18:59 Intake Total 270 420 Output Total 365 200 Balance -95 220 Weight 102.8 kg Intake: IV 210 0.9 NS at 10 cc/hr 10 Sodium Chloride 0.9% 1, 200 000 ml @ 75 mls/hr IV . [id number] LAWANDA Rx#:[id number] Intake, IV Titration 0 Amount Insulin Regular 100 unit 0 In Sodium Chloride 0.9% 100 ml @ Per Protocol IV .Q0M LAWANDA Rx#:[id number] Oral 60 420 Blood Product 0 Rc As-1 Unit 0 [id number] Output: Urine 365 200 Other: Voiding Method Bedside Commode Toilet # Voids 1 - Exam General appearance: no average body habitus, cooperative, no disheveled, no mild distress, no morbidly obese, no acute distress, no obese, no severe distress, no thin - EENT Eyes: no abnormal pupil, no anicteric sclerae, no disc margins sharp, no edentulous, no EOMI, no PERRLA, no fundus normal, no photophobia, no dentition normal, no poor dentition, no ptosis, no scleral icterus, normal appearance ENT: no hard of hearing, no hearing grossly normal, no NA/AT, normal oropharynx , no other, no pharyngeal erythema, no thrush, no tonsillar exudates, no tonsillar swelling Ears: bilateral: normal - Neck Neck: no lymphadenopathy, normal ROM, no other, no rigidity, no stridor, no thyromegaly Carotids: bilateral: upstroke normal Thyroid: bilateral: normal size - Respiratory Respiratory: bilateral: CTA, diminished - Cardiovascular Rhythm: regular Heart sounds: normal: S1, S2 Abnormal Heart Sounds: systolic murmur - Gastrointestinal General gastrointestinal: no absent bowel sounds, decreased bowel sounds, no distended, no hepatomegaly, no hyperactive bowel sounds, normal bowel sounds, no organomegaly, no rigid, no scaphoid, soft, no splenomegaly, no tenderness, no umbilical hernia, no ventral hernia - Integumentary Integumentary: No mass or hematoma in the right groin, less tender, no cellulitis, no cyanotic, no decreased turgor, no flushed, no jaundiced, normal, no normal turgor, pale, rash, no ulcer - Neurologic Neurologic: CNII-XII intact - Musculoskeletal Musculoskeletal: gait normal, generalized weakness, strength equal bilaterally, no right sided weakness, no left sided weakness - Psychiatric Psychiatric: A&O x's 3, appropriate affect, no intact judgment & insight - Labs CBC & Chem 7: 11/28/16 04:39 11/28/16 04:39 Labs: Abnormal Lab Results - Last 24 Hours (Table) 11/25/16 11/27/16 11/27/16 Range/Units 12:02 04:46 08:02 WBC (3.8-10.6) k/uL RBC (3.80-5.40) m/uL Hgb (11.4-16.0) gm/dL Hct (34.0-46.0) % Neutrophils # (1.3-7.7) k/uL Sodium (137-145) mmol/L Carbon Dioxide (22-30) mmol/L BUN (7-17) mg/dL Creatinine (0.52-1.04) mg/dL POC Glucose (mg/dL) 127 H (75-99) mg/dL Hemoglobin A1c 7.0 H (4.2-6.1) % Crossmatch See Detail 11/27/16 11/27/16 11/27/16 Range/Units 09:10 12:04 12:34 WBC (3.8-10.6) k/uL RBC (3.80-5.40) m/uL Hgb (11.4-16.0) gm/dL Hct (34.0-46.0) % Neutrophils # (1.3-7.7) k/uL Sodium (137-145) mmol/L Carbon Dioxide (22-30) mmol/L BUN (7-17) mg/dL Creatinine (0.52-1.04) mg/dL POC Glucose (mg/dL) 178 H 154 H 145 H (75-99) mg/dL Hemoglobin A1c (4.2-6.1) % Crossmatch 11/27/16 11/28/16 11/28/16 Range/Units 20:39 04:39 04:39 WBC 11.3 H (3.8-10.6) k/uL RBC 2.83 L (3.80-5.40) m/uL Hgb 8.4 L (11.4-16.0) gm/dL Hct 25.9 L (34.0-46.0) % Neutrophils # 8.6 H (1.3-7.7) k/uL Sodium 127 L (137-145) mmol/L Carbon Dioxide 18 L (22-30) mmol/L BUN 40 H (7-17) mg/dL Creatinine 2.70 H (0.52-1.04) mg/dL POC Glucose (mg/dL) 115 H (75-99) mg/dL Hemoglobin A1c (4.2-6.1) % Crossmatch 11/28/16 11/28/16 Range/Units 04:46 04:47 WBC (3.8-10.6) k/uL RBC (3.80-5.40) m/uL Hgb (11.4-16.0) gm/dL Hct (34.0-46.0) % Neutrophils # (1.3-7.7) k/uL Sodium (137-145) mmol/L Carbon Dioxide (22-30) mmol/L BUN (7-17) mg/dL Creatinine (0.52-1.04) mg/dL POC Glucose (mg/dL) 419 H 348 H (75-99) mg/dL Hemoglobin A1c (4.2-6.1) % Crossmatch Assessment and Plan Plan: 1 CAD: With multiple coronary artery disease patent lesion in the RCA with stent still open, had 2 more lesion 1 in the LAD and one in the circumflex which Dr. Ahmadi has done an angioplasty and stent placement successfully. 2. Right common femoral hematoma and pseudoaneurysm with possible early sepsis and wound infection developing. Dr. Ybarra on consult. Plan for thrombin injection of the right femoral pseudoaneurysm. Status post repair of pseudoaneurysm right groin. Blood cultures, urine culture, urinalysis, chest x- ray and ID consult added. 3. post LA with acute coronary syndrome: Patient has done well since her last admission. 4. Acute kidney injury on chronic kidney disease stage III post kidney transplant, patient is still seen nephrology regular basis which will be followed daily with repeat BUN/creatinine. 5. diabetes mellitus type 2: Patient is on insulin pump continue insulin pump watch her Accu-Chek with sliding scales coverage. 6. hyperlipidemia: On Lipitor 20 mg daily. 7. GERD: Patient is on Zantac or H2 jai and doing well. 8. post renal transplant: Patient to continue CellCept 750 mg orally twice a day along with Prograf 2 mg twice a day and prednisone 5 mg daily. 9. hypertension: Doing very well on current medication resume atenolol 100 mg daily. CODE STATUS: Full code. Discharge plan: Return home Impression and plan of care have been directed as dictated by the signing physician. Lainey Cameron nurse practitioner acting as scribe for signing physician. Time with Patient: Greater than 30
[2016-11-28] MEDS: RANITIDINE SYRUP 150 MG/10 ML CUP PO SCH (09:16)
[2016-11-28] MEDS: SODIUM FERRIC GLUCONAT-SUCROSE 125 MG in SODIUM CHLORIDE 0.9% 100 ML IVPB SCH (09:16)
[2016-11-28] MEDS: TACROLIMUS 1 MG CAP PO SCH ×2 (09:16→20:59)
[2016-11-28] MEDS: ATENOLOL 50 MG TAB PO SCH (09:17)
[2016-11-28] MEDS: ATORVASTATIN 80 MG TAB PO SCH (09:17)
[2016-11-28] MEDS: BENZOCAINE/MENTHOL LOZENG 1 EACH LOZENGE MUCOUS MEM PRN (09:17)
[2016-11-28] MEDS: FERROUS SULFATE 325 MG TAB PO SCH ×2 (09:17→16:18)
[2016-11-28] MEDS: CLOPIDOGREL 75 MG TAB PO SCH (09:18)
[2016-11-28] MEDS: ASPIRIN 81 MG CHEW PO SCH (09:18)
[2016-11-28] MEDS: MYCOPHENOLATE MOFETIL 250 MG CAP PO SCH ×2 (09:18→20:59)
[2016-11-28] MEDS: predniSONE 5 MG TAB PO SCH (09:19)
[2016-11-28] MEDS: LEVALBUTEROL NEB 1.25 MG/3 ML AMP INHALATION SCH ×4 (09:30→19:22)
[2016-11-28] MEDS: oxyCODONE-APAP 7.5-325MG 1 EACH TAB PO PRN (10:06)
[2016-11-28] MEDS ORDERED: FUROSEMIDE 10 MG/ML 10 ML VIAL IV STA (10:21)
[2016-11-28 10:26] LABS: Appearance,Urine Clear (Clear); Bilirubin,Urine Negative (Negative); Glucose,Urine (UA) Negative (Negative); Ketones,Urine Negative (Negative); Leukocyte Esterase,Urine Negative (Negative); Mucus,Urine Rare /hpf; Nitrite,Urine Negative (Negative); PH, Urine 5.5 (5.0-8.0); Particle Count 4220; Protein,Urine 2+ (Negative); UA Billing (MACRO vs. MICRO) MICRO; Urobilinogen,Urine <2.0 mg/dL (<2.0); WBC,Urine 1 /hpf (0-5)
--- NOTE | 2016-11-28 10:36 | XR ---
EXAMINATION TYPE: XR chest 1V portable DATE OF EXAM: 11/28/2016 10:29 AM COMPARISON: 11/27/2016 HISTORY: Shortness of breath TECHNIQUE: Single frontal view of the chest is obtained. FINDINGS: The heart is enlarged and there are subsegmental infiltrate and tiny effusion. No pneumoth orax. Arthropathy of the shoulder. IMPRESSION: 1. Bilateral pleural effusions and basilar atelectasis or infiltrate. Correlate for mild central veno us congestion.
--- NOTE | 2016-11-28 11:06 | P.PN ---
Subjective Patient is seen in follow-up for chronic kidney disease and renal transplant management. She underwent a cardiac catheterization on November 24 and had 2 stents placed to the circumflex. She did develop a pseudoaneurysm and underwent evacuation of hematoma on November 26. Her hemoglobin was down to 6.5 for which she did receive packed red blood cell transfusion. Hemoglobin stable at 8.4 this morning. She denies any chest pain or shortness of breath. No vomiting or diarrhea. Her baseline creatinine is 1.6 and is up at 2.7 today. She did develop fever last night. Cultures are pending at this time. Vital signs are stable. General: The patient appeared well nourished and normally developed. HEENT: Head exam is unremarkable. Neck is without jugular venous distension. LUNGS: Lungs are clear to auscultation and percussion. Breath sounds decreased. HEART: Rate and Rhythm are regular. First and second heart sounds normal. No murmurs, rubs or gallops. ABDOMEN: Abdominal exam reveals normal bowel sounds. Non-tender and non- distended. No evidence of peritonitis. EXTREMITITES: 1+ edema. Objective - Vital Signs Vital signs: Vital Signs Temp 101.2 F H 11/28/16 08:00 Pulse 77 11/28/16 10:00 Resp 20 11/28/16 10:00 BP 151/64 11/28/16 10:00 Pulse Ox 94 L 11/28/16 10:00 Intake & Output 11/27/16 11/28/16 11/28/16 18:59 06:59 18:59 Intake Total 270 420 360 Output Total 365 200 550 Balance -95 220 -190 Weight 102.8 kg 110.3 kg Intake: IV 210 20 0.9 NS at 10 cc/hr 10 0.9 NS at 20 ml/hr 20 Sodium Chloride 0.9% 1, 200 000 ml @ 75 mls/hr IV . [id number] LAWANDA Rx#:[id number] Intake, IV Titration 0 100 Amount Insulin Regular 100 unit 0 In Sodium Chloride 0.9% 100 ml @ Per Protocol IV .Q0M LAWANDA Rx#:[id number] Sodium Ferric Gluconat- 100 Sucrose 125 mg In Sodium Chloride 0.9% 100 ml @ 100 mls/hr IVPB DAILY LAWANDA Rx#:[id number] Oral 60 420 240 Blood Product 0 Rc As-1 Unit 0 [id number] Output: Urine 365 200 550 Other: Voiding Method Bedside Commode Toilet # Voids 1 1 - Labs CBC & Chem 7: 11/28/16 04:39 11/28/16 04:39 Labs: Abnormal Lab Results - Last 24 Hours (Table) 11/25/16 11/27/16 11/27/16 Range/Units 12:02 12:04 12:34 WBC (3.8-10.6) k/uL RBC (3.80-5.40) m/uL Hgb (11.4-16.0) gm/dL Hct (34.0-46.0) % Neutrophils # (1.3-7.7) k/uL Sodium (137-145) mmol/L Carbon Dioxide (22-30) mmol/L BUN (7-17) mg/dL Creatinine (0.52-1.04) mg/dL POC Glucose (mg/dL) 154 H 145 H (75-99) mg/dL Urine Protein (Negative) Urine Mucus (None) /hpf Crossmatch See Detail 11/27/16 11/28/16 11/28/16 Range/Units 20:39 04:39 04:39 WBC 11.3 H (3.8-10.6) k/uL RBC 2.83 L (3.80-5.40) m/uL Hgb 8.4 L (11.4-16.0) gm/dL Hct 25.9 L (34.0-46.0) % Neutrophils # 8.6 H (1.3-7.7) k/uL Sodium 127 L (137-145) mmol/L Carbon Dioxide 18 L (22-30) mmol/L BUN 40 H (7-17) mg/dL Creatinine 2.70 H (0.52-1.04) mg/dL POC Glucose (mg/dL) 115 H (75-99) mg/dL Urine Protein (Negative) Urine Mucus (None) /hpf Crossmatch 11/28/16 11/28/16 11/28/16 Range/Units 04:46 04:47 09:55 WBC (3.8-10.6) k/uL RBC (3.80-5.40) m/uL Hgb (11.4-16.0) gm/dL Hct (34.0-46.0) % Neutrophils # (1.3-7.7) k/uL Sodium (137-145) mmol/L Carbon Dioxide (22-30) mmol/L BUN (7-17) mg/dL Creatinine (0.52-1.04) mg/dL POC Glucose (mg/dL) 419 H 348 H (75-99) mg/dL Urine Protein 2+ H (Negative) Urine Mucus Rare H (None) /hpf Crossmatch Assessment and Plan Plan: Assessment: #1. Chronic kidney disease stage III with baseline creatinine near 1.6. #2. 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 #3. Diabetes mellitus. #4. Coronary artery disease. #5. Anemia. Iron deficiency present. #6. Nonoliguric acute kidney injury from contrast-induced nephropathy as well as anemia. Creatinine up to 2.7 today. #7. Pseudoaneurysm of the groin status post evacuation of hematoma on November 26. Plan: Avoid nephrotoxic agents and hypotensive episodes. Hep-Lock IV fluids. Lasix 60 mg IV once today. Status post Mucomyst. Status post 3 doses of IV iron and completed on November 27. Repeat electrolytes in the morning. Maintain current immunosuppression with Prograf, CellCept, and prednisone. Continue to monitor renal function and urine output. Follow-up cultures. Antibiotics per infectious disease recommendations.
[2016-11-28] MEDS: hydrALAZINE HCL 50 MG TAB PO SCH ×3 (11:25→21:00)
[2016-11-28] MEDS: amLODIPine 5 MG TAB PO SCH ×2 (11:25→21:00)
[2016-11-28] MEDS: CHOLECALCIFEROL 1,000 UNIT TAB PO SCH (11:26)
[2016-11-28 11:45] LABS: Glucose,Whole Blood 74 mg/dL (75-99)
[2016-11-28] MEDS: CEFTAROLINE FOSAMIL 300 MG in SODIUM CHLORIDE 0.9% 250 ML IVPB SCH (16:17)
[2016-11-28 17:39] LABS: Glucose,Whole Blood 198 mg/dL (75-99)
--- NOTE | 2016-11-28 17:45 | PN ---
Bharati is sitting in the chair. She has local inflammation at the surgical site and groin and she is being seen by Dr. Rendon. She has been treated with IV antibiotics. Her kidney function has also worsened. Creatinine is 2.7. Her urine output has not been brisk despite the morning dose of Lasix and ( ) the morning dose of Lasix. She was given IV Lasix by nephrology. Her vital signs are stable. She is afebrile, 98.3, pulse is still in the 70s. Blood pressure is 135/61 mmHg. Breath sounds are reduced bilaterally with bibasilar crackles. Heart sounds S1, S2 are still soft. IMPRESSION: 1. Status post renal transplantation with acute on chronic renal failure. 2. Pseudoaneurysm right groin, status post surgery, low-grade infection on that side. The patient is also on prednisone and on other immunosuppressive medication. 3. Acute blood loss anemia. 4. Worsening renal function with congestion. SUGGEST: IV Lasix for admninistration of more IV Lasix today. The nurse( ) per nephrology ( ) and nurse was contact nephrology today but I think she will definitely need more Lasix. She does have crackles bilaterally. Continue other cardiac medications.
[2016-11-28] MEDS ORDERED: FUROSEMIDE 10 MG/ML 10 ML VIAL IV ONE (18:00)
--- NOTE | 2016-11-28 18:01 | PN ---
DATE OF SERVICE: 11/27/2016 Bharati Red is a 66-year-old female underwent aneurysm surgery. She is doing fairly well. She is afebrile. No recent ( ) temperature 97 degrees Fahrenheit. Pulse is 70s. Respiratory rate normal. Blood pressure is 103/64 mmHg. She is doing well from a cardiac standpoint, creatinine is 2.3. IMPRESSION: 1. Coronary artery disease and coronary artery stenting. 2. Right common femoral pseudoaneurysm status post surgery and repair. 3. Chronic kidney disease, status post kidney transplant. 4. Type 2 diabetes mellitus. SUGGEST: Continue cardiac medications and continue medications with atherosclerosis and the management of her acute and chronic kidney disease per nephrology.
--- NOTE | 2016-11-28 22:26 | P.CONS ---
History of Present Illness - Reason for Consult Consult date: 11/28/16 - Chief Complaint CAD - History of Present Illness 66-year-old female who has a known history of coronary artery disease was hospitalized in early November 2016 with an acute myocardial infarction. Evidence of Stenosis of Her Left Anterior Descending Artery in Her Circumflex. With a History of Renal Transplantation It Was Noted That Her Renal Function Had Worsened a Bit. Because She Was Stable Was Plan for Readmission for Her Angioplasty. She Gets Was Readmitted and Angioplasty Occurred on 11/23/2016. She Is Doing Modestly Well However Developed Difficulty with Pain to Her Right Groin. There Is Evidence of a Pseudoaneurysm. She's Been Taking the Operating Room Emesis Been Repaired. [place] Now Having Difficulties with Increasing Tenderness Erythema and Some Scant Serous Drainage. Some Scant Bloody Drainage Inferior to the Incision from Her Prior Dressing. She over Now Developed a Temperature 101.2 and with This the Infectious Diseases Consultation Was Requested. Review of Systems HEENT:Denies headache or acute visual change. Denies sinus or mouth discomforts. Denies neck stiffness or pain. Denies significant oral cavity pain. Denies difficulty on swallowing. Lungs: has significant shortness of breath At rest is leth than she was. She didhemoptysis. Cardiovascular: is having ongoing shortness of breath She has had dyspnea with exertion but no orthopenia Gastrointestinal:Denies nausea, vomiting, diarrhea, constipation, hematemesis, melena, hematochezia. No no significant change of bowel habit noticed. Musculoskeletal: denies significant myalgias or arthralgias. No new joint swelling. Denies new back pain. Skin: Has developed evidence of swelling erythema and some scant drainage from the right groin area Neuro: Denies headache or visual change. Denies any new onset weakness or difficulty with ambulation. Denies falls or seizures. Psychiatric:Denies anxiety or depression. Endocrine: Denies significant fatigue, denies significant weight loss or weight gain. Past Medical History Past Medical History: Coronary Artery Disease (CAD), Diabetes Mellitus, GERD/ Reflux, Hyperlipidemia, Hypertension, Renal Disease Additional Past Medical History / Comment(s): Chronic renal disease stage III with previous renal transplant, chronic anemia, IDDM with insulin pump, gluten free diet, neuropathy History of Any Multi-Drug Resistant Organisms: None Reported Past Surgical History: Section, Heart Catheterization, Heart Catheterization With Stent, Orthopedic Surgery Additional Past Surgical History / Comment(s): 2004 Kidney transplant at [facility] , bilateral cataracts, retinal peeling in left eye, L achilles tendon repair , L upper arm dialysis fistula, 2 cardiac stents, 2 c/s Past Anesthesia/Blood Transfusion Reactions: Motion Sickness, Postoperative Nausea & Vomiting (PONV) Additional Past Anesthesia/Blood Transfusion Reaction / Comm: PONV after C/S Date of Last Stent Placement:: approx 2012 Past Psychological History: No Psychological Hx Reported Additional Psychological History / Comment(s): . Smoking Status: Never smoker Past Alcohol Use History: Occasional Additional Past Alcohol Use History / Comment(s): Patient is a lifelong nonsmoker. She does drink red wine OCC LESS THEN 7 GLASSES PER WEEK Past Drug Use History: None Reported - Past Family History Father Family Medical History: Myocardial Infarction (PR) Additional Family Medical History / Comment(s): Father at age 70 from myocardial infarction Mother Family Medical History: Cancer Additional Family Medical History / Comment(s): Mother at age 86 from pneumonia. Sister(s) Family Medical History: Cancer Additional Family Medical History / Comment(s): . Medications and Allergies Home Medications and Allergies Comment(s): Current Medications Alprazolam (Xanax) 0.25 mg PO Q6HR PRN PRN Reason: Mild Anxiety Last Admin: 11/24/16 14:01 Dose: 0.25 mg Alprazolam (Xanax) 0.5 mg PO Q6HR PRN PRN Reason: Moderate Anxiety Amlodipine Besylate (Norvasc) 5 mg PO BID FOR[facility], [facility] Last Admin: 11/28/16 21:00 Dose: 5 mg Aspirin (Aspirin) 81 mg PO DAILY [facility], [facility] Last Admin: 11/28/16 09:18 Dose: 81 mg Atenolol (Tenormin) 100 mg PO DAILY [facility], [facility] Last Admin: 11/28/16 09:17 Dose: 100 mg Atorvastatin Calcium (Lipitor) 80 mg PO DAILY [facility], [facility] Last Admin: 11/28/16 09:17 Dose: 80 mg Benzocaine/Menthol (Cepacol Lozenge) 1 each MUCOUS MEM Q4HR PRN PRN Reason: Sore Throat Last Admin: 11/28/16 09:17 Dose: 1 each Cholecalciferol (Vitamin D3) 2,000 unit PO DAILY@1200 [facility], [facility] Last Admin: 11/28/16 11:26 Dose: 2,000 unit Clopidogrel Bisulfate (Plavix) 75 mg PO DAILY [facility], [facility] Last Admin: 11/28/16 09:18 Dose: 75 mg Ferrous Sulfate (Feosol) 325 mg PO BID-W/MEALS FOR[facility], [facility] Last Admin: 11/28/16 16:18 Dose: 325 mg Hydralazine HCl (Apresoline) 50 mg PO TID [facility], [facility] Last Admin: 11/28/16 21:00 Dose: 50 mg Hydromorphone HCl (Dilaudid) 0.5 mg IVP Q3HR PRN PRN Reason: Pain 6-10 Last Admin: 11/28/16 01:08 Dose: 0.5 mg Ceftaroline Fosamil 300 mg/ (Sodium Chloride) 250 mls @ 250 mls/hr IVPB Q12HR@ 0000,1200 [facility] Last Admin: 11/28/16 16:17 Dose: 250 mls/hr Levalbuterol HCl (Xopenex Nebulized) 1.25 mg INHALATION RT-QID [facility], [facility] Last Admin: 11/28/16 19:22 Dose: 1.25 mg Mycophenolate Mofetil (Cellcept) 750 mg PO BID [facility], [facility] Last Admin: 11/28/16 20:59 Dose: 750 mg Nitroglycerin (Nitrostat) 0.4 mg SUBLINGUAL Q5M PRN PRN Reason: Chest Pain Oxycodone/Acetaminophen (Percocet 7.5-325) 1 each PO Q6HR PRN PRN Reason: Pain 1-5 Last Admin: 11/28/16 10:06 Dose: 1 each Prednisone () 5 mg PO DAILY [facility], [facility] Last Admin: 11/28/16 09:19 Dose: 5 mg Ranitidine HCl (Zantac Syrup) 75 mg PO DAILY [facility] Last Admin: 11/28/16 09:16 Dose: 75 mg Tacrolimus (Prograf) 2 mg PO BID [facility] Last Admin: 11/28/16 20:59 Dose: 2 mg Zolpidem Tartrate (Ambien) 5 mg PO HS PRN PRN Reason: Insomnia Home Medications Medication Instructions Recorded Confirmed Type Ascorbic Acid [Vitamin C] 500 mg PO DAILY 04/09/15 11/26/16 History Aspirin EC [Ecotrin Low Dose] 81 mg PO DAILY 04/09/15 11/26/16 History Atenolol [Tenormin] 100 mg PO DAILY 04/09/15 11/26/16 History Cholecalciferol [Vitamin D3] 2,000 unit PO DAILY 04/09/15 11/26/16 History Ferrous Sulfate [Iron (65 MG 325 mg PO DAILY 04/09/15 11/26/16 History Elemental)] Mycophenolate Mofetil [Cellcept] 500 mg PO BID@0900,2100 04/09/15 11/26/16 History Tacrolimus [Prograf] 2 mg PO BID 04/09/15 11/26/16 History predniSONE 5 mg PO DAILY 04/09/15 11/26/16 History HYDROcodone/APAP 5-325MG [[place] 1 tab PO Q6H PRN 03/04/16 11/26/16 History 5-325] Multivits-Min/Iron/FA/Lutein 1 tab PO DAILY 03/04/16 11/26/16 History [Centrum Silver Women Tablet] Nitroglycerin Sl Tabs [Nitrostat] 0.4 mg SUBLINGUAL DIRECTED PRN 03/04/16 History Vitamin B Complex 1 cap PO DAILY 03/04/16 11/26/16 History Albuterol Inhaler [Ventolin Hfa 2 puff INHALATION RT-Q4H PRN 09/16/16 11/26/16 History Inhaler] Glucagon Emergency Kit 1 mg IM DIRECTED PRN 09/16/16 11/26/16 History Ranitidine HCl [Zantac] 75 mg PO DAILY 09/16/16 11/26/16 History Rutin/Quercetin/Bioflav/Bilber 40 mg PO DAILY 11/19/16 11/26/16 History [Bilberry Extract] INSULIN LISPRO (For Pump) [humaLOG 0.01 units SQ-PUMP CONTINUOUS 11/26/16 History (For Pump)] Allergies Allergy/AdvReac Type Severity Reaction Status Date / Time Sulfa (Sulfonamide Allergy Rash/Hives Verified 11/23/16 18:48 Antibiotics) vancomycin Allergy Rash/Hives Verified 11/23/16 18:48 venom-honey bee Allergy Swelling Verified 11/23/16 18:48 [bee venom (honey bee)] metoprolol tartrate AdvReac Confusion Verified 11/23/16 18:48 [From Lopressor] Physical Exam Vitals: Vital Signs Temp Pulse Pulse Pulse Pulse Pulse Resp 11/28/16 22:00 79 26 H 11/28/16 21:00 74 25 H 11/28/16 20:00 98.5 F 75 74 74 76 74 27 H 11/28/16 19:36 70 11/28/16 19:22 70 11/28/16 19:00 75 23 11/28/16 18:00 76 17 11/28/16 17:00 75 74 H 11/28/16 16:00 98.3 F 73 75 75 75 75 18 11/28/16 15:56 78 11/28/16 15:44 76 11/28/16 15:00 72 23 11/28/16 14:00 98.6 F 70 20 11/28/16 13:00 73 75 75 75 75 20 11/28/16 12:00 76 75 75 75 26 H 11/28/16 11:54 76 11/28/16 11:45 76 11/28/16 11:23 99.4 F 75 75 75 20 11/28/16 11:00 77 31 H 11/28/16 10:00 77 20 11/28/16 09:00 79 26 H 11/28/16 08:00 101.2 F H 82 75 75 75 20 11/28/16 07:00 77 22 11/28/16 06:00 80 23 11/28/16 05:00 83 23 11/28/16 04:00 97.7 F 80 23 11/28/16 03:00 76 18 11/28/16 02:00 71 23 11/28/16 00:00 97.4 F L 74 22 11/27/16 23:00 76 20 BP BP Pulse Ox 11/28/16 22:00 133/59 95 11/28/16 21:00 133/59 95 11/28/16 20:00 133/59 94 L 11/28/16 19:36 11/28/16 19:22 11/28/16 19:00 11/28/16 18:00 93 L 11/28/16 17:00 135/61 93 L 11/28/16 16:00 126/59 135/61 96 11/28/16 15:56 11/28/16 15:44 11/28/16 15:00 121/57 94 L 11/28/16 14:00 117/50 95 11/28/16 13:00 125/51 125/51 96 11/28/16 12:00 140/53 89 L 11/28/16 11:54 11/28/16 11:45 92 L 11/28/16 11:23 90 L 11/28/16 11:00 142/63 91 L 11/28/16 10:00 151/64 94 L 11/28/16 09:00 150/64 94 L 11/28/16 08:00 150/64 93 L 11/28/16 07:00 11/28/16 06:00 143/66 11/28/16 05:00 143/66 11/28/16 04:00 143/66 87 L 11/28/16 03:00 11/28/16 02:00 11/28/16 00:00 140/59 91 L 11/27/16 23:00 Intake and Output 11/28/16 11/28/16 11/28/16 06:59 14:59 22:59 Intake Total 240 740 40 Output Total 200 790 270 Balance 40 -50 -230 Intake: IV 40 40 0.9 NS at 20 ml/hr 40 40 Intake, IV Titration 100 Amount Sodium Ferric Gluconat- 100 Sucrose 125 mg In Sodium Chloride 0.9% 100 ml @ 100 mls/hr IVPB DAILY [facility], [facility] Rx#:[id number] Oral 240 600 Output: Urine 200 790 270 Other: Voiding Method Toilet Toilet Toilet # Voids 1 Weight 110.3 kg Patient Weight 11/29/16 06:59 Weight 110.3 kg pleasant 66 -year-old woman who issitting up in the chair. The exertion made her feel somewhat HEENT: Anicteric conjunctiva are pink and moist nasal mucosa grossly intact without significant lesions, there is no thrush. Neck: The neck is supple without significant lymphadenopathy or thyromegaly. Lungs: Symmetrical air entry. Bibasilar crackles are heard. No kurt bronchial sounds. Heart: Irregular with an audible S1 and S2 soft S4 no murmur click or rub PMI was nondisplaced Abdomen: obese,Positive bowel sounds soft and nontender without palpable masses or organomegaly. There was no guarding or rebound. Extremities: The upper extremities have excellent pulses they are symmetric, no significant petechiae or telangiectasia. No splinter hemorrhages were noted. Lower extremities evidence of generalized edema. Left lower extremities hasbeen abnormalities. Neurologic she was as the recent surgical intervention to the right groin. Surgical incision is intact. There is a scant amount of drainage on the dressing. Nothing is expressible. She is a small tape injury was some bleeding it's distal on the thigh. There is some mild surrounding erythema. It is somewhat tender to touch. But not exquisitely so. No odor is noted. There is no ascending erythema that is noted Neuro: Awake alert oriented to person place and time. There are no acute new gross focal sensory motor deficits. Results CBC & Chem 7: 11/28/16 04:39 11/28/16 04:39 Labs: Abnormal Lab Results - Last 24 Hours (Table) 11/25/16 11/28/16 11/28/16 Range/Units 12:02 04:39 04:39 WBC 11.3 H (3.8-10.6) k/uL RBC 2.83 L (3.80-5.40) m/uL Hgb 8.4 L (11.4-16.0) gm/dL Hct 25.9 L (34.0-46.0) % Neutrophils # 8.6 H (1.3-7.7) k/uL Sodium 127 L (137-145) mmol/L Carbon Dioxide 18 L (22-30) mmol/L BUN 40 H (7-17) mg/dL Creatinine 2.70 H (0.52-1.04) mg/dL POC Glucose (mg/dL) (75-99) mg/dL Urine Protein (Negative) Urine Mucus (None) /hpf Crossmatch See Detail 11/28/16 11/28/16 11/28/16 Range/Units 04:46 04:47 09:55 WBC (3.8-10.6) k/uL RBC (3.80-5.40) m/uL Hgb (11.4-16.0) gm/dL Hct (34.0-46.0) % Neutrophils # (1.3-7.7) k/uL Sodium (137-145) mmol/L Carbon Dioxide (22-30) mmol/L BUN (7-17) mg/dL Creatinine (0.52-1.04) mg/dL POC Glucose (mg/dL) 419 H 348 H (75-99) mg/dL Urine Protein 2+ H (Negative) Urine Mucus Rare H (None) /hpf Crossmatch 11/28/16 11/28/16 Range/Units 11:44 17:35 WBC (3.8-10.6) k/uL RBC (3.80-5.40) m/uL Hgb (11.4-16.0) gm/dL Hct (34.0-46.0) % Neutrophils # (1.3-7.7) k/uL Sodium (137-145) mmol/L Carbon Dioxide (22-30) mmol/L BUN (7-17) mg/dL Creatinine (0.52-1.04) mg/dL POC Glucose (mg/dL) 74 L 198 H (75-99) mg/dL Urine Protein (Negative) Urine Mucus (None) /hpf Crossmatch Laboratory Results WBC 11.3 k/uL (3.8-10.6) H 11/28/16 04:39 RBC 2.83 m/uL (3.80-5.40) L 11/28/16 04:39 Hgb 8.4 gm/dL (11.4-16.0) L 11/28/16 04:39 Hct 25.9 % (34.0-46.0) L 11/28/16 04:39 MCV 91.4 fL (80.0-100.0) 11/28/16 04:39 MCH 29.5 pg (25.0-35.0) 11/28/16 04:39 MCHC 32.3 g/dL (31.0-37.0) 11/28/16 04:39 RDW 14.9 % (11.5-15.5) 11/28/16 04:39 Plt Count 222 k/uL (150-450) 11/28/16 04:39 Neutrophils % 76 % 11/28/16 04:39 Lymphocytes % 10 % 11/28/16 04:39 Monocytes % 9 % 11/28/16 04:39 Eosinophils % 3 % 11/28/16 04:39 Basophils % 0 % 11/28/16 04:39 Neutrophils # 8.6 k/uL (1.3-7.7) H 11/28/16 04:39 Lymphocytes # 1.1 k/uL (1.0-4.8) 11/28/16 04:39 Monocytes # 1.0 k/uL (0-1.0) 11/28/16 04:39 Eosinophils # 0.3 k/uL (0-0.7) 11/28/16 04:39 Basophils # 0.0 k/uL (0-0.2) 11/28/16 04:39 Hypochromasia Slight 11/27/16 04:46 PT 11.1 sec (9.0-12.0) 11/27/16 04:46 INR 1.1 (<1.1) 11/27/16 04:46 Sodium 127 mmol/L (137-145) L 11/28/16 04:39 Potassium 4.6 mmol/L (3.5-5.1) 11/28/16 04:39 Chloride 98 mmol/L (98-107) 11/28/16 04:39 Carbon Dioxide 18 mmol/L (22-30) L 11/28/16 04:39 Anion Gap 11 mmol/L 11/28/16 04:39 BUN 40 mg/dL (7-17) H 11/28/16 04:39 Creatinine 2.70 mg/dL (0.52-1.04) H 11/28/16 04:39 Est GFR (MDRD) Af Amer 21 (>60 ml/min/1.73 sqM) 11/28/16 04:39 Est GFR (MDRD) Non-Af 18 (>60 ml/min/1.73 sqM) 11/28/16 04:39 Glucose 83 mg/dL (74-99) 11/28/16 04:39 POC Glucose (mg/dL) 198 mg/dL (75-99) H 11/28/16 17:35 POC Glu Psychiatric Arnp ID 11/28/16 17:[address] Glu mg/dL 154 mg/dL 11/27/16 04:46 Hemoglobin A1c 7.0 % (4.2-6.1) H 11/27/16 04:46 Calcium 8.8 mg/dL (8.4-10.2) 11/28/16 04:39 Phosphorus 4.8 mg/dL (2.5-4.5) H 11/27/16 04:46 Magnesium 1.7 mg/dL (1.6-2.3) 11/27/16 04:46 Iron 42 ug/dL (37-170) 11/24/16 07:48 TIBC 238 ug/dL (265-497) L 11/24/16 07:48 % Saturation 17.6 % (20-50) L 11/24/16 07:48 Ferritin 168 ng/mL (11-264) 11/24/16 07:48 Urine Color Yellow 11/28/16 09:55 Urine Appearance Clear (Clear) 11/28/16 09:55 Urine pH 5.5 (5.0-8.0) 11/28/16 09:55 Ur Specific [place] 1.010 (1.001-1.035) 11/28/16 09:55 Urine Protein 2+ (Negative) H 11/28/16 09:55 Urine Glucose (UA) Negative (Negative) 11/28/16 09:55 Urine Ketones Negative (Negative) 11/28/16 09:55 Urine Blood Negative (Negative) 11/28/16 09:55 Urine Nitrate Negative (Negative) 11/28/16 09:55 Urine Bilirubin Negative (Negative) 11/28/16 09:55 Urine Urobilinogen <2.0 mg/dL (<2.0) 11/28/16 09:55 Ur Leukocyte Esterase Negative (Negative) 11/28/16 09:55 Urine WBC 1 /hpf (0-5) 11/28/16 09:55 Urine Mucus Rare /hpf (None) H 11/28/16 09:55 Blood Type A Positive 11/25/16 12:02 Blood Type Confirm A Positive 11/24/16 20:03 Blood Type Recheck CABO Indicated 11/25/16 12:02 Antibody Screen NEGATIVE 11/25/16 12:02 Crossmatch See Detail 11/25/16 12:02 Spec Expiration Date 11/28/2016230111/25/16 12:02 Assessment and Plan (1) Fever Narrative/Plan: 66-year-old male presents to Hospital after her myocardial infarction earlier this year. She presented for her cardiac intervention and stenting was performed to the LAD and circumflex. She been doing well but was having some difficulty with her right groin. In that she developed a temperature 101.2. She has been seen by vascular surgery and repair of her pseudoaneurysms occurred. As evidence of some fever 101.2 erythema and tenderness to the site. With this is concerned infection at that area. She has a known history of vancomycin ALLERGY. With this Ceftaroline 400 mg IV piggyback every 12 hours as utilized. She give coverage for staph including MRSA as well as some routine gram-negative organisms such as E. coli that are in the groin. There is no drainage at this time for culture. Blood cultures are in process. She is symptomatically stable. She is feeling better except for shortness of breath with 6 improving. Does have a history of renal transplantation. Her creatinine is up from her baseline. She is monitored closely from nephrology. Receiving some diuresis for her significant volume overload. Status: Acute (2) Pseudoaneurysm of right femoral artery Status: Acute (3) Cellulitis of right thigh Status: Acute
[2016-11-29] LABS: Glucose,Whole Blood 200 mg/dL (75-99)
[2016-11-29] MEDS: CEFTAROLINE FOSAMIL 300 MG in SODIUM CHLORIDE 0.9% 250 ML IVPB SCH ×3 (00:13→23:25)
[2016-11-29 06:22] LABS: Glucose,Whole Blood 157 mg/dL (75-99)
[2016-11-29] MEDS: FERROUS SULFATE 325 MG TAB PO SCH ×2 (06:34→16:13)
[2016-11-29 06:43] LABS: Basophils % (A) 0 %; Eosinophils # (A) 0.2 k/uL (0-0.7); Eosinophils % (A) 2 %; HDW 2.97; HGB 7.8 gm/dL (11.4-16.0); Luc # (Auto) 0.24; Luc % (Auto) 3; Lymphocytes # (A) 1.1 k/uL (1.0-4.8); Lymphocytes % (A) 12 %; MCH 29.9 pg (25.0-35.0); MCHC 32.5 g/dL (31.0-37.0); MCV 91.7 fL (80.0-100.0); Mean Platelet Volume 7.5; Monocytes # (A) 0.8 k/uL (0-1.0); Monocytes % (A) 9 %; Neutrophils # (A) 7.1 k/uL (1.3-7.7); Neutrophils % (A) 75 %; RBC 2.62 m/uL (3.80-5.40); RDW 14.9 % (11.5-15.5); WBC 9.4 k/uL (3.8-10.6)
[2016-11-29 06:52] LABS: Calcium 8.8 mg/dL (8.4-10.2); Potassium 4.2 mmol/L (3.5-5.1); Total Bilirubin 0.9 mg/dL (0.2-1.3); Total Protein 5.2 g/dL (6.3-8.2)
[2016-11-29] MEDS: LEVALBUTEROL NEB 1.25 MG/3 ML AMP INHALATION SCH ×4 (08:46→20:21)
[2016-11-29] MEDS ORDERED: FUROSEMIDE 10 MG/ML 10 ML VIAL IV STA (09:10)
--- NOTE | 2016-11-29 09:10 | P.PN ---
Progress Note - Text 66-year-old white female, patient had a repair of pseudoaneurysm post heart catheterization patient is stable her when necessary is 2.7 creatinine 4 today we have changed her dressing incision site looks clean we have changed the dressing today pulses are present but the Doppler continue with medical management thank you
--- NOTE | 2016-11-29 09:13 | P.PN ---
Subjective Patient is seen in follow-up for chronic kidney disease and renal transplant management. She underwent a cardiac catheterization on November 24 and had 2 stents placed to the circumflex. She did develop a pseudoaneurysm and underwent evacuation of hematoma on November 26. Her hemoglobin was down to 6.5 for which she did receive packed red blood cell transfusion. Hemoglobin 7.8 this morning. She denies any chest pain. Does feel dyspneic at times. No vomiting or diarrhea. Her baseline creatinine is 1.6 and is stable at 2.7 today. She did develop fever on November 28. Cultures are pending at this time. Vital signs are stable. General: The patient appeared well nourished and normally developed. HEENT: Head exam is unremarkable. Neck is without jugular venous distension. LUNGS: Lungs are clear to auscultation and percussion. Breath sounds decreased. HEART: Rate and Rhythm are regular. First and second heart sounds normal. No murmurs, rubs or gallops. ABDOMEN: Abdominal exam reveals normal bowel sounds. Non-tender and non- distended. No evidence of peritonitis. EXTREMITITES: 1+ edema. Objective - Vital Signs Vital signs: Vital Signs Temp 98.3 F 11/29/16 04:00 Pulse 72 11/29/16 09:05 Resp 18 11/29/16 04:00 BP 135/62 11/29/16 04:00 Pulse Ox 96 11/29/16 04:00 Intake & Output 11/28/16 11/29/16 11/29/16 18:59 06:59 18:59 Intake Total 780 100 Output Total 1060 1400 Balance -280 -1400 100 Weight 110.3 kg 104.6 kg Intake: IV 80 0.9 NS at 20 ml/hr 80 Intake, IV Titration 100 Amount Sodium Ferric Gluconat- 100 Sucrose 125 mg In Sodium Chloride 0.9% 100 ml @ 100 mls/hr IVPB DAILY [facility] Rx#:[id number] Oral 600 100 Output: Urine 1060 1400 Other: Voiding Method Toilet Indwelling Catheter # Voids 1 1 - Labs CBC & Chem 7: 11/29/16 06:12 11/29/16 06:12 Labs: Abnormal Lab Results - Last 24 Hours (Table) 11/28/16 11/28/16 11/28/16 Range/Units 09:55 11:44 17:35 RBC (3.80-5.40) m/uL Hgb (11.4-16.0) gm/dL Hct (34.0-46.0) % Sodium (137-145) mmol/L Carbon Dioxide (22-30) mmol/L BUN (7-17) mg/dL Creatinine (0.52-1.04) mg/dL Glucose (74-99) mg/dL POC Glucose (mg/dL) 74 L 198 H (75-99) mg/dL Total Protein (6.3-8.2) g/dL Albumin (3.5-5.0) g/dL Urine Protein 2+ H (Negative) Urine Mucus Rare H (None) /hpf 11/28/16 11/29/16 11/29/16 Range/Units 23:42 05:52 06:12 RBC 2.62 L (3.80-5.40) m/uL Hgb 7.8 L (11.4-16.0) gm/dL Hct 24.0 L (34.0-46.0) % Sodium (137-145) mmol/L Carbon Dioxide (22-30) mmol/L BUN (7-17) mg/dL Creatinine (0.52-1.04) mg/dL Glucose (74-99) mg/dL POC Glucose (mg/dL) 200 H 157 H (75-99) mg/dL Total Protein (6.3-8.2) g/dL Albumin (3.5-5.0) g/dL Urine Protein (Negative) Urine Mucus (None) /hpf 11/29/16 Range/Units 06:12 RBC (3.80-5.40) m/uL Hgb (11.4-16.0) gm/dL Hct (34.0-46.0) % Sodium 126 L (137-145) mmol/L Carbon Dioxide 15 L (22-30) mmol/L BUN 40 H (7-17) mg/dL Creatinine 2.70 H (0.52-1.04) mg/dL Glucose 129 H (74-99) mg/dL POC Glucose (mg/dL) (75-99) mg/dL Total Protein 5.2 L (6.3-8.2) g/dL Albumin 2.8 L (3.5-5.0) g/dL Urine Protein (Negative) Urine Mucus (None) /hpf Microbiology - Last 24 Hours (Table) 11/28/16 09:55 Urine Culture - Preliminary Urine,Catheterized Assessment and Plan Plan: Assessment: #1. Chronic kidney disease stage III with baseline creatinine near 1.6. #2. Status post living unrelated renal allograft at [facility] from [facility]. #3. Diabetes mellitus. #4. Coronary artery disease. #5. Anemia. Iron deficiency present. #6. Nonoliguric acute kidney injury from contrast-induced nephropathy as well as anemia. Creatinine stable at 2.7 today. #7. Pseudoaneurysm of the groin status post evacuation of hematoma on November 26. #8. Hypervolemic hyponatremia. Sodium level 126 today. Plan: Avoid nephrotoxic agents and hypotensive episodes. Hep-Lock IV fluids. Lasix 60 mg IV once today. Maintain fluid restriction. Status post Mucomyst. Status post 3 doses of IV iron and completed on November 27. Repeat electrolytes in the morning. Maintain current immunosuppression with Prograf, CellCept, and prednisone. Continue to monitor renal function and urine output. Follow-up cultures. Antibiotics per infectious disease recommendations.
[2016-11-29] MEDS: ATENOLOL 50 MG TAB PO SCH (09:20)
[2016-11-29] MEDS: CHOLECALCIFEROL 1,000 UNIT TAB PO SCH (09:20)
[2016-11-29] MEDS: RANITIDINE SYRUP 150 MG/10 ML CUP PO SCH (09:20)
[2016-11-29] MEDS: TACROLIMUS 1 MG CAP PO SCH ×2 (09:21→21:02)
[2016-11-29] MEDS: amLODIPine 5 MG TAB PO SCH ×2 (09:21→21:02)
[2016-11-29] MEDS: MYCOPHENOLATE MOFETIL 250 MG CAP PO SCH ×2 (09:21→21:02)
[2016-11-29] MEDS: hydrALAZINE HCL 50 MG TAB PO SCH ×3 (09:21→21:02)
[2016-11-29] MEDS: ASPIRIN 81 MG CHEW PO SCH (09:21)
[2016-11-29] MEDS: ATORVASTATIN 80 MG TAB PO SCH (09:22)
[2016-11-29] MEDS: predniSONE 5 MG TAB PO SCH (09:22)
[2016-11-29] MEDS: CLOPIDOGREL 75 MG TAB PO SCH (09:23)
[2016-11-29 12:02] LABS: Potassium,Urine Random 23.4 mmol/L; Sodium, Urine Random <5 mmol/L (30-90)
[2016-11-29 12:07] LABS: Glucose,Whole Blood 69 mg/dL (75-99)
[2016-11-29] MEDS ORDERED: INSPUCOR MISCELLANE PRN (12:09)
[2016-11-29] MEDS ORDERED: INSULIN PUMP BASAL RATES 1 EACH MISC MISCELLANE PRN (12:09)
[2016-11-29 12:11] LABS: Glucose,Whole Blood 65 mg/dL (75-99)
[2016-11-29] MEDS: INSULIN PUMP MEAL BOLUS 1 UNIT MISC MISCELLANE SCH ×3 (12:45→20:51)
[2016-11-29 12:52] LABS: Glucose,Whole Blood 135 mg/dL (75-99)
[2016-11-29] MEDS: oxyCODONE-APAP 7.5-325MG 1 EACH TAB PO PRN (14:56)
[2016-11-29] MEDS: SENNOSIDES-DOCUSATE SODIUM 1 EACH TAB PO PRN (15:21)
[2016-11-29] MEDS: BENZOCAINE/MENTHOL LOZENG 1 EACH LOZENGE MUCOUS MEM PRN (15:21)
--- NOTE | 2016-11-29 15:40 | P.PN ---
Subjective Principal diagnosis: Coronary artery disease 66-year-old female who has a known history of coronary artery disease was hospitalized in early November 2016 with an acute myocardial infarction. Evidence of Stenosis of Her Left Anterior Descending Artery in Her Circumflex. With a History of Renal Transplantation It Was Noted That Her Renal Function Had Worsened a Bit. Because She Was Stable Was Plan for Readmission for Her Angioplasty. She then Was Readmitted and Angioplasty Occurred on 11/23/2016. She Is Doing Modestly Well However Developed Difficulty with Pain to Her Right Groin. There Is Evidence of a Pseudoaneurysm. She's Been Taking to the Operating Room and the aneurysm has Been Repaired. She then started Having Difficulties with Increasing Tenderness Erythema and Some Scant Serous Drainage. Some Scant Bloody Drainage Inferior to the Incision from Her Prior Dressing. She then Developed a Temperature 101.2 which fortunately is improved today. Objective - Vital Signs Vital signs: Vital Signs Temp 97.1 F L 11/29/16 15:09 Pulse 77 11/29/16 15:09 Resp 18 11/29/16 15:09 BP 138/59 11/29/16 15:09 Pulse Ox 96 11/29/16 15:09 Intake & Output 11/28/16 11/29/16 11/29/16 18:59 06:59 18:59 Intake Total 780 350 Output Total 1060 1400 Balance -280 -1400 350 Weight 110.3 kg 104.6 kg Intake: IV 80 0.9 NS at 20 ml/hr 80 Intake, IV Titration 100 250 Amount Ceftaroline Fosamil 300 250 mg In Sodium Chloride 0.9 % 250 ml @ 250 mls/hr IVPB Q12HR@0000,1200 [facility] Rx#:[id number] Sodium Ferric Gluconat- 100 Sucrose 125 mg In Sodium Chloride 0.9% 100 ml @ 100 mls/hr IVPB DAILY [facility] Rx#:[id number] Oral 600 100 Output: Urine 1060 1400 Other: Voiding Method Toilet Indwelling Catheter Indwelling Catheter # Voids 1 1 - Exam pleasant 66 -year-old woman who issitting up in the chair. The exertion made her feel somewhat HEENT: Anicteric conjunctiva are pink and moist nasal mucosa grossly intact without significant lesions, there is no thrush. Neck: The neck is supple without significant lymphadenopathy or thyromegaly. Lungs: Symmetrical air entry. Bibasilar crackles are heard. No kurt bronchial sounds. Heart: Irregular with an audible S1 and S2 soft S4 no murmur click or rub PMI was nondisplaced Abdomen: obese,Positive bowel sounds soft and nontender without palpable masses or organomegaly. There was no guarding or rebound. Extremities: The upper extremities have excellent pulses they are symmetric, no significant petechiae or telangiectasia. No splinter hemorrhages were noted. Lower extremities evidence of generalized edema. Left lower extremities hasbeen abnormalities. Neurologic she was as the recent surgical intervention to the right groin. Surgical incision is intact. There is a scant amount of drainage on the dressing. Nothing is expressible. She is a small tape injury was some bleeding it's distal on the thigh. There is some mild surrounding erythema. It is somewhat tender to touch. But not exquisitely so. No odor is noted. There is no ascending erythema that is noted Neuro: Awake alert oriented to person place and time. There are no acute new gross focal sensory motor deficits. - Labs CBC & Chem 7: 11/29/16 06:12 11/29/16 06:12 Labs: Abnormal Lab Results - Last 24 Hours (Table) 11/28/16 11/28/16 11/29/16 Range/Units 17:35 23:42 05:52 RBC (3.80-5.40) m/uL Hgb (11.4-16.0) gm/dL Hct (34.0-46.0) % Sodium (137-145) mmol/L Carbon Dioxide (22-30) mmol/L BUN (7-17) mg/dL Creatinine (0.52-1.04) mg/dL Glucose (74-99) mg/dL POC Glucose (mg/dL) 198 H 200 H 157 H (75-99) mg/dL Osmolality (280-301) mosm/kg Total Protein (6.3-8.2) g/dL Albumin (3.5-5.0) g/dL Ur Random Sodium (30-90) mmol/L 11/29/16 11/29/16 11/29/16 Range/Units 06:12 06:12 06:12 RBC 2.62 L (3.80-5.40) m/uL Hgb 7.8 L (11.4-16.0) gm/dL Hct 24.0 L (34.0-46.0) % Sodium 126 L (137-145) mmol/L Carbon Dioxide 15 L (22-30) mmol/L BUN 40 H (7-17) mg/dL Creatinine 2.70 H (0.52-1.04) mg/dL Glucose 129 H (74-99) mg/dL POC Glucose (mg/dL) (75-99) mg/dL Osmolality 275 L (280-301) mosm/kg Total Protein 5.2 L (6.3-8.2) g/dL Albumin 2.8 L (3.5-5.0) g/dL Ur Random Sodium (30-90) mmol/L 11/29/16 11/29/16 11/29/16 Range/Units 11:26 11:46 12:07 RBC (3.80-5.40) m/uL Hgb (11.4-16.0) gm/dL Hct (34.0-46.0) % Sodium (137-145) mmol/L Carbon Dioxide (22-30) mmol/L BUN (7-17) mg/dL Creatinine (0.52-1.04) mg/dL Glucose (74-99) mg/dL POC Glucose (mg/dL) 69 L 65 L (75-99) mg/dL Osmolality (280-301) mosm/kg Total Protein (6.3-8.2) g/dL Albumin (3.5-5.0) g/dL Ur Random Sodium <5 L (30-90) mmol/L 11/29/16 Range/Units 12:39 RBC (3.80-5.40) m/uL Hgb (11.4-16.0) gm/dL Hct (34.0-46.0) % Sodium (137-145) mmol/L Carbon Dioxide (22-30) mmol/L BUN (7-17) mg/dL Creatinine (0.52-1.04) mg/dL Glucose (74-99) mg/dL POC Glucose (mg/dL) 135 H (75-99) mg/dL Osmolality (280-301) mosm/kg Total Protein (6.3-8.2) g/dL Albumin (3.5-5.0) g/dL Ur Random Sodium (30-90) mmol/L Microbiology - Last 24 Hours (Table) 11/28/16 10:03 Blood Culture - Preliminary Blood No Growth after 24 hours 11/28/16 08:53 Blood Culture - Preliminary Blood No Growth after 24 hours 11/28/16 09:55 Urine Culture - Preliminary Urine,Catheterized Assessment and Plan (1) Fever Narrative/Plan: 66-year-old male presents to Hospital after her myocardial infarction earlier this year. She presented for her cardiac intervention and stenting was performed to the LAD and circumflex. She been doing well but was having some difficulty with her right groin. In that she developed a temperature 101.2. She has been seen by vascular surgery and repair of her pseudoaneurysms occurred. As evidence of some fever 101.2 erythema and tenderness to the site. With this is concerned infection at that area. She has a known history of vancomycin ALLERGY. With this Ceftaroline 400 mg IV piggyback every 12 hours as utilized. She give coverage for staph including MRSA as well as some routine gram-negative organisms such as E. coli that are in the groin. There is no drainage at this time for culture. Blood cultures are in process. She is symptomatically stable. She is feeling better except for shortness of breath which has been improving. Does have a history of renal transplantation. Her creatinine is up from her baseline of 1.6, 2.7 today. She is monitored closely from nephrology. Receiving some diuresis for her significant volume overload. Status: Acute (2) Pseudoaneurysm of right femoral artery Status: Acute (3) Cellulitis of right thigh Status: Acute
[2016-11-29 17:14] LABS: Glucose,Whole Blood 190 mg/dL (75-99)
--- NOTE | 2016-11-29 19:08 | PN ---
Bharati Red is a 66-year-old female who had a pseudoaneurysm. She is doing well. She does not have any fever, chills. Her breathing is a lot better. She had bilateral crackles in both lung freitas yesterday and she is doing a lot better today. Vital signs are as follows: Blood pressure 138/59 mmHg. Respiratory rate normal and she is afebrile, 97.1 degrees Fahrenheit, pulse rate is 77 beats a minute. Heart sounds S1, S2 are normal. LUNGS: Decreased breath sounds bilaterally with some crackles only at the bases. IMPRESSION: 1. Coronary artery disease, status post percutaneous coronary intervention. 2. Pseudoaneurysm status post repair. 3. Status post kidney transplant on immunosuppressive therapy. SUGGEST: Continue current medications and I spoke to Dr. Guerra this morning who said her wound was healing well and hopefully she can be discharged in the next 1 to 2 days.
[2016-11-29 21:14] LABS: Glucose,Whole Blood 183 mg/dL (75-99)
[2016-11-29] MEDS: HYDROmorphone 1 MG/ML 1 ML SYRINGE IVP PRN (23:25)
--- NOTE | 2016-11-29 23:37 | P.PN ---
Subjective Principal diagnosis: Coronary artery disease post to angioplasty and stent placement, post AL, acute kidney injury, large hematoma in the right groin area, pseudoaneurysm of the right femoral artery post surgery. 66-year-old female one of my office patient of known for long time was hospitalized in November 05 of November 10, 2016 for acute myocardial infarction with acute coronary syndrome ended up going for angiogram showed significant stenosis in the LAD and circumflex. Patient kidney function had declined slightly ended up going home after being hydrated and watch her kidney function was seen in the office and see Dr. Ahmadi and patient brought to the hospital on 11/23/2016 for an angioplasty, procedure was done successfully and patient is resting comfortably with no complaint, nephrology consultation was requested and BUN/creatinine to be done an daily basis for the next 2 days. Patient will be admitted for 48 hours. 11/25: Hemoglobin 7.1, BUN 36 and creatinine 1.9. She is status post PTCA and stenting of a complex torturous mid circumflex coronary artery. Nephrology is following. She is continued on Mucomyst and scheduled for IV Ferrlecit 3 days. Patient has developed a right common femoral hematoma and pseudoaneurysm. Dr. Ybarra has evaluated the patient and she is a candidate for thrombin injection of the right femoral pseudoaneurysm. 11/26: Hemoglobin 6.5, BUN 41 and creatinine 2.26. She is continued on Ferrlecit and scheduled for transfusion 1 unit packed RBCs. IV fluids at 50 mL per hour. Patient will complete Mucomyst today. Repeat Ultrasound of the groin today. Bladder scan as needed. 11/27: Yesterday patient underwent repair of perforation of a right profunda femoris artery and evacuation of right groin hematoma with Dr. Ybarra and was subsequently admitted to the ICU. She has a Rosario catheter in place and urine output has been adequate. Rosario will be discontinued this morning. She states she has much decreased pain to the right groin area. She denies any chest pain , shortness of breath. PT is working with her today. Patient is receiving her third dose of Ferrlecit. She has completed her course of Mucomyst. IV fluids at 50 mL per hour. Repeat BUN 40 and creatinine 2.3. Repeat chest x-ray shows borderline cardiomegaly and interstitial prominence which may be chronic. Correlate to exclude mild CHF. 11/28: Patient states that the groin site remains better in regards to pain. Site is warm to the touch. She did have a temperature of 101.2 this morning blood cultures, urinalysis urine culture and chest x-ray have been ordered. Patient does not have a cough or sputum production. She is complaining of feeling achy all over. She has minimal urine output Rosario was removed last night. Morning blood sugar was 95 and patient is on insulin pump. BUN 40 with creatinine 2.7 and hemoglobin 8.4. Infectious disease consult added. Patient is complaining of sore throat for which Cepacol lozenges added. 11/29: Patient is more comfortable able to ambulate out of bed with help her hemoglobin dropped down slightly but she is feeling better she was transfer out of the intensive care unit yesterday. No need for blood transfusion yet but hemoglobin is below 8 we'll wait till tomorrow repeat another CBC if it remain in the mid 7 transfusion be done. Expectation for discharge hopefully over the next 48 hours creatinine has plateau over the last 2 days with no significant declining kidney function at this point. Objective - Vital Signs Vital signs: Vital Signs Temp 97.2 F L 11/29/16 12:00 Pulse 73 11/29/16 12:00 Resp 18 11/29/16 12:00 BP 124/58 11/29/16 12:00 Pulse Ox 96 11/29/16 12:00 Intake & Output 11/28/16 11/29/16 11/29/16 18:59 06:59 18:59 Intake Total 780 350 Output Total 1060 1400 Balance -280 -1400 350 Weight 110.3 kg 104.6 kg Intake: IV 80 0.9 NS at 20 ml/hr 80 Intake, IV Titration 100 250 Amount Ceftaroline Fosamil 300 250 mg In Sodium Chloride 0.9 % 250 ml @ 250 mls/hr IVPB Q12HR@0000,1200 [facility] Rx#:[id number] Sodium Ferric Gluconat- 100 Sucrose 125 mg In Sodium Chloride 0.9% 100 ml @ 100 mls/hr IVPB DAILY [facility] Rx#:[id number] Oral 600 100 Output: Urine 1060 1400 Other: Voiding Method Toilet Indwelling Catheter Indwelling Catheter # Voids 1 1 - Constitutional General appearance: Present: cooperative, disheveled, obese. Absent: average body habitus, mild distress, morbidly obese, no acute distress, severe distress , thin - EENT Eyes: Present: normal appearance. Absent: abnormal pupil, anicteric sclerae, disc margins sharp, edentulous, EOMI, PERRLA, fundus normal, photophobia, dentition normal, poor dentition, ptosis, scleral icterus ENT: Present: hard of hearing, normal oropharynx. Absent: hearing grossly normal, NA/AT, other, pharyngeal erythema, thrush, tonsillar exudates, tonsillar swelling Ears: bilateral: normal - Neck Neck: Present: normal ROM Carotids: bilateral: upstroke normal Thyroid: bilateral: normal size, enlarged - Respiratory Respiratory: bilateral: CTA, diminished - Cardiovascular Rhythm: regular Heart sounds: normal: S1, S2 Abnormal Heart Sounds: Present: systolic murmur, S3 Gallop - Gastrointestinal Gastrointestinal Comment(s): Mild bruise and lower abdominal area with slight ecchymosis. General gastrointestinal: Present: normal bowel sounds, soft - Integumentary Integumentary Comment(s): Large hematoma in the right leg from the groin all the way to the knee site with significant distention and tenderness in the area. Mild tenderness below the knee as well but no sign of DVT but Doppler was order to exclude this possibility before discharge from the hospital. Integumentary: Present: cellulitis, pale, rash. Absent: calor, cyanotic, decreased turgor, flushed, jaundiced, normal, normal turgor, ulcer - Neurologic Neurologic: Present: CNII-XII intact - Musculoskeletal Musculoskeletal: Present: gait normal, generalized weakness, strength equal bilaterally. Absent: right sided weakness, left sided weakness - Psychiatric Psychiatric: Present: A&O x's 3, appropriate affect. Absent: intact judgment & insight - Labs CBC & Chem 7: 11/29/16 06:12 11/29/16 06:12 Labs: Abnormal Lab Results - Last 24 Hours (Table) 11/28/16 11/28/16 11/29/16 Range/Units 17:35 23:42 05:52 RBC (3.80-5.40) m/uL Hgb (11.4-16.0) gm/dL Hct (34.0-46.0) % Sodium (137-145) mmol/L Carbon Dioxide (22-30) mmol/L BUN (7-17) mg/dL Creatinine (0.52-1.04) mg/dL Glucose (74-99) mg/dL POC Glucose (mg/dL) 198 H 200 H 157 H (75-99) mg/dL Osmolality (280-301) mosm/kg Total Protein (6.3-8.2) g/dL Albumin (3.5-5.0) g/dL Ur Random Sodium (30-90) mmol/L 11/29/16 11/29/16 11/29/16 Range/Units 06:12 06:12 06:12 RBC 2.62 L (3.80-5.40) m/uL Hgb 7.8 L (11.4-16.0) gm/dL Hct 24.0 L (34.0-46.0) % Sodium 126 L (137-145) mmol/L Carbon Dioxide 15 L (22-30) mmol/L BUN 40 H (7-17) mg/dL Creatinine 2.70 H (0.52-1.04) mg/dL Glucose 129 H (74-99) mg/dL POC Glucose (mg/dL) (75-99) mg/dL Osmolality 275 L (280-301) mosm/kg Total Protein 5.2 L (6.3-8.2) g/dL Albumin 2.8 L (3.5-5.0) g/dL Ur Random Sodium (30-90) mmol/L 11/29/16 11/29/16 11/29/16 Range/Units 11:26 11:46 12:07 RBC (3.80-5.40) m/uL Hgb (11.4-16.0) gm/dL Hct (34.0-46.0) % Sodium (137-145) mmol/L Carbon Dioxide (22-30) mmol/L BUN (7-17) mg/dL Creatinine (0.52-1.04) mg/dL Glucose (74-99) mg/dL POC Glucose (mg/dL) 69 L 65 L (75-99) mg/dL Osmolality (280-301) mosm/kg Total Protein (6.3-8.2) g/dL Albumin (3.5-5.0) g/dL Ur Random Sodium <5 L (30-90) mmol/L 11/29/16 Range/Units 12:39 RBC (3.80-5.40) m/uL Hgb (11.4-16.0) gm/dL Hct (34.0-46.0) % Sodium (137-145) mmol/L Carbon Dioxide (22-30) mmol/L BUN (7-17) mg/dL Creatinine (0.52-1.04) mg/dL Glucose (74-99) mg/dL POC Glucose (mg/dL) 135 H (75-99) mg/dL Osmolality (280-301) mosm/kg Total Protein (6.3-8.2) g/dL Albumin (3.5-5.0) g/dL Ur Random Sodium (30-90) mmol/L Microbiology - Last 24 Hours (Table) 11/28/16 10:03 Blood Culture - Preliminary Blood No Growth after 24 hours 11/28/16 08:53 Blood Culture - Preliminary Blood No Growth after 24 hours 11/28/16 09:55 Urine Culture - Preliminary Urine,Catheterized Assessment and Plan Plan: 1 CAD: With multiple coronary artery disease patent lesion in the RCA with stent still open, had 2 more lesion 1 in the LAD and one in the circumflex which Dr. Ahmadi has done an angioplasty and stent placement successfully. 2. Right common femoral hematoma and pseudoaneurysm with possible early sepsis and wound infection developing. Dr. Ybarra on consult. Plan for thrombin injection of the right femoral pseudoaneurysm. Status post repair of pseudoaneurysm right groin. Blood cultures, urine culture, urinalysis, chest x- ray and ID consult added. 3. post AL with acute coronary syndrome: Patient has done well since her last admission. 4. Acute kidney injury on chronic kidney disease stage III post kidney transplant, patient is still seen nephrology regular basis which will be followed daily with repeat BUN/creatinine. 5. diabetes mellitus type 2: Patient is on insulin pump continue insulin pump watch her Accu-Chek with sliding scales coverage. 6. hyperlipidemia: On Lipitor 20 mg daily. 7. GERD: Patient is on Zantac or H2 jai and doing well. 8. post renal transplant: Patient to continue CellCept 750 mg orally twice a day along with Prograf 2 mg twice a day and prednisone 5 mg daily. 9. hypertension: Doing very well on current medication resume atenolol 100 mg daily. 10. Anemia: Continue to watch hemoglobin every day if dropped below 8 g require transfusion continue iron and Procrit. Discharge expectation: Patient might be discharged on Wednesday.
[2016-11-30 06:12] LABS: Glucose,Whole Blood 117 mg/dL (75-99)
[2016-11-30 06:46] LABS: Basophils % (A) 1 %; CH 29.4; CHCM 31.3; Eosinophils # (A) 0.4 k/uL (0-0.7); Eosinophils % (A) 5 %; HCT 24.7 % (34.0-46.0); HDW 2.88; HGB 7.8 gm/dL (11.4-16.0); Hypochromasia Slight; Luc # (Auto) 0.35; Luc % (Auto) 5; Lymphocytes # (A) 1.1 k/uL (1.0-4.8); Lymphocytes % (A) 14 %; MCH 29.8 pg (25.0-35.0); MCHC 31.4 g/dL (31.0-37.0); MCV 94.8 fL (80.0-100.0); Mean Platelet Volume 6.9; Monocytes # (A) 0.8 k/uL (0-1.0); Monocytes % (A) 10 %; Neutrophils # (A) 5.2 k/uL (1.3-7.7); Neutrophils % (A) 66 %; RDW 14.6 % (11.5-15.5); WBC 7.8 k/uL (3.8-10.6); WBC (Perox) 8.36
[2016-11-30] MEDS: FERROUS SULFATE 325 MG TAB PO SCH ×2 (06:55→17:54)
[2016-11-30] MEDS: INSULIN PUMP MEAL BOLUS 1 UNIT MISC MISCELLANE SCH ×4 (06:55→20:58)
[2016-11-30 07:01] LABS: Calcium 8.7 mg/dL (8.4-10.2); Potassium 4.1 mmol/L (3.5-5.1); Total Bilirubin 0.8 mg/dL (0.2-1.3); Total Protein 5.1 g/dL (6.3-8.2)
[2016-11-30] MEDS ORDERED: SODIUM BICARB 8.4% 50 ML SYR (1 MEQ/ML) IV STA (08:26)
[2016-11-30] MEDS ORDERED: FUROSEMIDE 10 MG/ML 10 ML VIAL IV STA (09:03)
--- NOTE | 2016-11-30 09:05 | P.PN ---
Subjective Patient is seen in follow-up for chronic kidney disease and renal transplant management. She underwent a cardiac catheterization on November 24 and had 2 stents placed to the circumflex. She did develop a pseudoaneurysm and underwent evacuation of hematoma on November 26. Her hemoglobin was down to 6.5 for which she did receive packed red blood cell transfusion. Hemoglobin 7.8 this morning. She denies any chest pain. Does feel dyspneic at times. No vomiting or diarrhea. Her baseline creatinine is 1.6 and is stable at 2.8 today. She did develop fever on November 28. Cultures have been negative so far. Vital signs are stable. General: The patient appeared well nourished and normally developed. HEENT: Head exam is unremarkable. Neck is without jugular venous distension. LUNGS: Lungs are clear to auscultation and percussion. Breath sounds decreased. HEART: Rate and Rhythm are regular. First and second heart sounds normal. No murmurs, rubs or gallops. ABDOMEN: Abdominal exam reveals normal bowel sounds. Non-tender and non- distended. No evidence of peritonitis. EXTREMITITES: 1+ edema. Objective - Vital Signs Vital signs: Vital Signs Temp 97.1 F L 11/30/16 04:00 Pulse 68 11/30/16 04:00 Resp 18 11/30/16 04:00 BP 134/63 11/30/16 04:00 Pulse Ox 94 L 11/30/16 04:00 Intake & Output 11/29/16 11/30/16 11/30/16 18:59 06:59 18:59 Intake Total 730 600 Output Total 1000 Balance 730 -400 Weight 104.6 kg Intake: Intake, IV Titration 250 Amount Ceftaroline Fosamil 300 250 mg In Sodium Chloride 0.9 % 250 ml @ 250 mls/hr IVPB Q12HR@0000,1200 [facility] Rx#:[id number] Oral 480 600 Output: Urine 1000 Other: Voiding Method Indwelling Catheter Indwelling Catheter - Labs CBC & Chem 7: 11/30/16 05:51 11/30/16 05:51 Labs: Abnormal Lab Results - Last 24 Hours (Table) 11/25/16 11/29/16 11/29/16 Range/Units 12:02 06:12 11:26 RBC (3.80-5.40) m/uL Hgb (11.4-16.0) gm/dL Hct (34.0-46.0) % Sodium (137-145) mmol/L Carbon Dioxide (22-30) mmol/L BUN (7-17) mg/dL Creatinine (0.52-1.04) mg/dL Glucose (74-99) mg/dL POC Glucose (mg/dL) (75-99) mg/dL Osmolality 275 L (280-301) mosm/kg Total Protein (6.3-8.2) g/dL Albumin (3.5-5.0) g/dL Ur Random Sodium <5 L (30-90) mmol/L Crossmatch See Detail 11/29/16 11/29/16 11/29/16 Range/Units 11:46 12:07 12:39 RBC (3.80-5.40) m/uL Hgb (11.4-16.0) gm/dL Hct (34.0-46.0) % Sodium (137-145) mmol/L Carbon Dioxide (22-30) mmol/L BUN (7-17) mg/dL Creatinine (0.52-1.04) mg/dL Glucose (74-99) mg/dL POC Glucose (mg/dL) 69 L 65 L 135 H (75-99) mg/dL Osmolality (280-301) mosm/kg Total Protein (6.3-8.2) g/dL Albumin (3.5-5.0) g/dL Ur Random Sodium (30-90) mmol/L Crossmatch 11/29/16 11/29/16 11/30/16 Range/Units 16:50 21:13 05:51 RBC (3.80-5.40) m/uL Hgb (11.4-16.0) gm/dL Hct (34.0-46.0) % Sodium 127 L (137-145) mmol/L Carbon Dioxide 14 L (22-30) mmol/L BUN 40 H (7-17) mg/dL Creatinine 2.80 H (0.52-1.04) mg/dL Glucose 109 H (74-99) mg/dL POC Glucose (mg/dL) 190 H 183 H (75-99) mg/dL Osmolality (280-301) mosm/kg Total Protein 5.1 L (6.3-8.2) g/dL Albumin 2.7 L (3.5-5.0) g/dL Ur Random Sodium (30-90) mmol/L Crossmatch 11/30/16 11/30/16 Range/Units 05:51 06:11 RBC 2.60 L (3.80-5.40) m/uL Hgb 7.8 L (11.4-16.0) gm/dL Hct 24.7 L (34.0-46.0) % Sodium (137-145) mmol/L Carbon Dioxide (22-30) mmol/L BUN (7-17) mg/dL Creatinine (0.52-1.04) mg/dL Glucose (74-99) mg/dL POC Glucose (mg/dL) 117 H (75-99) mg/dL Osmolality (280-301) mosm/kg Total Protein (6.3-8.2) g/dL Albumin (3.5-5.0) g/dL Ur Random Sodium (30-90) mmol/L Crossmatch Microbiology - Last 24 Hours (Table) 11/28/16 09:55 Urine Culture - Final Urine,Catheterized 11/28/16 10:03 Blood Culture - Preliminary Blood No Growth after 24 hours 11/28/16 08:53 Blood Culture - Preliminary Blood No Growth after 24 hours Assessment and Plan Plan: Assessment: #1. Chronic kidney disease stage III with baseline creatinine near 1.6. #2. Status post living unrelated renal allograft at [facility] from 2004. #3. Diabetes mellitus. #4. Coronary artery disease. #5. Anemia. Iron deficiency present. #6. Nonoliguric acute kidney injury from contrast-induced nephropathy as well as anemia. Creatinine mildly worsened at 2.8 today. #7. Pseudoaneurysm of the groin status post evacuation of hematoma on November 26. #8. Hypervolemic hyponatremia. Sodium level 127 today. #9. Metabolic acidosis secondary to acute kidney injury. Plan: Avoid nephrotoxic agents and hypotensive episodes. Hep-Lock IV fluids. Lasix 60 mg IV once today. Maintain fluid restriction. Status post Mucomyst. Status post 3 doses of IV iron and completed on November 27. Repeat electrolytes in the morning. Maintain current immunosuppression with Prograf, CellCept, and prednisone. Continue to monitor renal function and urine output. Follow-up cultures. Antibiotics per infectious disease recommendations. Start oral sodium bicarbonate supplementation.
[2016-11-30] MEDS: LEVALBUTEROL NEB 1.25 MG/3 ML AMP INHALATION SCH ×4 (09:16→19:54)
[2016-11-30] MEDS ORDERED: INSULIN PUMP ACTIVE INSULIN 1 EACH MISC MISCELLANE PRN (09:57)
[2016-11-30] MEDS ORDERED: INSULIN PUMP TARGET GLUCOSE 1 EACH MISC MISCELLANE PRN (09:57)
[2016-11-30] MEDS ORDERED: INSULIN LISPRO (humaLOG) 300 UNIT/3 ML VIAL SQ PRN (09:57)
[2016-11-30] MEDS: ONDANSETRON 4 MG/2 ML VIAL IVP PRN (10:04)
[2016-11-30] MEDS: MYCOPHENOLATE MOFETIL 250 MG CAP PO SCH ×2 (11:02→20:45)
[2016-11-30] MEDS: TACROLIMUS 1 MG CAP PO SCH ×2 (11:03→20:44)
[2016-11-30] MEDS: SODIUM BICARBONATE TAB 650 MG TAB PO SCH ×2 (11:03→20:44)
[2016-11-30] MEDS: CLOPIDOGREL 75 MG TAB PO SCH (11:04)
[2016-11-30] MEDS: SENNOSIDES-DOCUSATE SODIUM 1 EACH TAB PO PRN (11:04)
[2016-11-30] MEDS: ASPIRIN 81 MG CHEW PO SCH (11:04)
[2016-11-30] MEDS: predniSONE 5 MG TAB PO SCH (11:04)
[2016-11-30] MEDS: ATENOLOL 50 MG TAB PO SCH (11:07)
[2016-11-30] MEDS: RANITIDINE SYRUP 150 MG/10 ML CUP PO SCH (11:14)
[2016-11-30] MEDS: ATORVASTATIN 80 MG TAB PO SCH (11:14)
[2016-11-30] MEDS: amLODIPine 5 MG TAB PO SCH ×2 (11:16→20:45)
[2016-11-30] MEDS: hydrALAZINE HCL 50 MG TAB PO SCH ×2 (11:16→17:54)
[2016-11-30 12:04] LABS: Glucose,Whole Blood 184 mg/dL (75-99)
[2016-11-30] MEDS: CHOLECALCIFEROL 1,000 UNIT TAB PO SCH (13:50)
[2016-11-30] MEDS: CEFTAROLINE FOSAMIL 300 MG in SODIUM CHLORIDE 0.9% 250 ML IVPB SCH (13:56)
--- NOTE | 2016-11-30 13:59 | US ---
EXAMINATION TYPE: US venous doppler duplex LE RT DATE OF EXAM: 11/30/2016 10:32 AM COMPARISON: NONE CLINICAL HISTORY: 66-year-old female Patient had surgery on pseudoaneurysm on 11/26 after a failed com pression and injection the previous day. Patient had extensive bleeding after surgery, she currently has bandaging in groin, and right leg swelling Technique: Duplex Doppler ultrasound examination of the right lower extremity. FINDINGS: SIDE PERFORMED: Right TECHNOLOGIST NOTES: morbidly obese patient with limitations listed above VESSELS IMAGED: External Iliac Vein (EIV) not seen due to bandaging, open wound Common Femoral Vein not seen due to bandaging, open wound Deep Femoral Vein not seen due to bandaging, open wound Greater Saphenous Vein *not seen due to bandaging, open wound Femoral Vein only able to image mid femoral v with color due to extensive swelling/morbid obesity Popliteal Vein Small Saphenous Vein * Proximal Calf Veins (* superficial vessels) Right Leg: negative for DVT in popliteal v, other areas not able to fully evaluate due to above limi tations IMPRESSION: The right popliteal and right upper calf veins are patent. The deep veins higher up in the leg could not adequately be assessed.
--- NOTE | 2016-11-30 15:30 | P.PN ---
Subjective Principal diagnosis: Circumflex stent This is a pleasant 66-year-old female who was admitted to the hospital , underwent angioplasty, subsequently developed a pseudoaneurysm, requiring thrombin injection. Patient was in the intensive care unit over the weekend, now being followed on the telemetry unit. She does not have any fever or chills. White blood cell count is normal. Overall feeling much better today. She was up with physical therapy today Objective - Vital Signs Vital signs: Vital Signs Temp 97.3 F L 11/30/16 12:10 Pulse 74 11/30/16 12:10 Resp 18 11/30/16 12:10 BP 124/57 11/30/16 12:10 Pulse Ox 94 L 11/30/16 12:10 Intake & Output 11/29/16 11/30/16 11/30/16 18:59 06:59 18:59 Intake Total 730 600 750 Output Total 1000 Balance 730 -400 750 Weight 104.6 kg Intake: Intake, IV Titration 250 250 Amount Ceftaroline Fosamil 300 250 250 mg In Sodium Chloride 0.9 % 250 ml @ 250 mls/hr IVPB Q12HR@0000,1200 COUNT INCLUDES THE [facility] Rx#:[id number] Oral 480 600 500 Output: Urine 1000 Other: Voiding Method Indwelling Catheter Indwelling Catheter Indwelling Catheter # Voids 0 - Exam PHYSICAL EXAMINATION: HEENT: Head is atraumatic, normocephalic. Pupils equal, round. Neck is supple. There is no elevated jugular venous pressure. HEART EXAMINATION: Heart S1, S2 normal. No murmur or gallop heard. CHEST EXAMINATION: Circumflex clear with diminished air entry to bilateral bases ABDOMEN: Soft, obese, nontender. Bowel sounds are heard. No organomegaly noted. EXTREMITIES:[ 2+ peripheral pulses with large amount of ecchymosis from the groin down to the knee, significant tenderness. NEUROLOGIC patient is awake, alert and oriented -3. . - Labs CBC & Chem 7: 11/30/16 05:51 11/30/16 05:51 Labs: Abnormal Lab Results - Last 24 Hours (Table) 11/25/16 11/29/16 11/29/16 Range/Units 12:02 16:50 21:13 RBC (3.80-5.40) m/uL Hgb (11.4-16.0) gm/dL Hct (34.0-46.0) % Sodium (137-145) mmol/L Carbon Dioxide (22-30) mmol/L BUN (7-17) mg/dL Creatinine (0.52-1.04) mg/dL Glucose (74-99) mg/dL POC Glucose (mg/dL) 190 H 183 H (75-99) mg/dL Total Protein (6.3-8.2) g/dL Albumin (3.5-5.0) g/dL Crossmatch See Detail 11/30/16 11/30/16 11/30/16 Range/Units 05:51 05:51 06:11 RBC 2.60 L (3.80-5.40) m/uL Hgb 7.8 L (11.4-16.0) gm/dL Hct 24.7 L (34.0-46.0) % Sodium 127 L (137-145) mmol/L Carbon Dioxide 14 L (22-30) mmol/L BUN 40 H (7-17) mg/dL Creatinine 2.80 H (0.52-1.04) mg/dL Glucose 109 H (74-99) mg/dL POC Glucose (mg/dL) 117 H (75-99) mg/dL Total Protein 5.1 L (6.3-8.2) g/dL Albumin 2.7 L (3.5-5.0) g/dL Crossmatch 11/30/16 Range/Units 12:00 RBC (3.80-5.40) m/uL Hgb (11.4-16.0) gm/dL Hct (34.0-46.0) % Sodium (137-145) mmol/L Carbon Dioxide (22-30) mmol/L BUN (7-17) mg/dL Creatinine (0.52-1.04) mg/dL Glucose (74-99) mg/dL POC Glucose (mg/dL) 184 H (75-99) mg/dL Total Protein (6.3-8.2) g/dL Albumin (3.5-5.0) g/dL Crossmatch Microbiology - Last 24 Hours (Table) 11/28/16 10:03 Blood Culture - Preliminary Blood No Growth after 48 hours 11/28/16 08:53 Blood Culture - Preliminary Blood No Growth after 48 hours 11/28/16 09:55 Urine Culture - Final Urine,Catheterized Assessment and Plan (1) Presence of stent in LAD coronary artery Status: Acute (2) Presence of stent in left circumflex coronary artery Status: Acute (3) Femoral artery pseudoaneurysm complicating cardiac catheterization Status: Acute (4) Renal insufficiency Status: Acute (5) Hx of kidney transplant Status: Acute (6) Diabetes Status: Acute (7) HTN (hypertension) Status: Acute (8) Hyperlipemia Status: Acute (9) Anemia Status: Acute Plan: From cardiology's perspective, we'll recommend to continue the patient on her current medications. Once she is discharged from the hospital she will follow- up with Dr. Menendez in the office. DNP note has been reviewed, I agree with a documented findings and plan of care. Patient was seen and examined.
[2016-11-30] MEDS: LACTULOSE 20 GM/30 ML CUP PO SCH ×2 (16:17→20:45)
--- NOTE | 2016-11-30 16:33 | P.PN ---
Subjective 66-year-old female one of my office patient of known for long time was hospitalized in November 05 of November 10, 2016 for acute myocardial infarction with acute coronary syndrome ended up going for angiogram showed significant stenosis in the LAD and circumflex. Patient kidney function had declined slightly ended up going home after being hydrated and watch her kidney function was seen in the office and see Dr. Ahmadi and patient brought to the hospital on 11/23/2016 for an angioplasty, procedure was done successfully and patient is resting comfortably with no complaint, nephrology consultation was requested and BUN/creatinine to be done an daily basis for the next 2 days. Patient will be admitted for 48 hours. 11/25: Hemoglobin 7.1, BUN 36 and creatinine 1.9. She is status post PTCA and stenting of a complex torturous mid circumflex coronary artery. Nephrology is following. She is continued on Mucomyst and scheduled for IV Ferrlecit 3 days. Patient has developed a right common femoral hematoma and pseudoaneurysm. Dr. Ybarra has evaluated the patient and she is a candidate for thrombin injection of the right femoral pseudoaneurysm. 11/26: Hemoglobin 6.5, BUN 41 and creatinine 2.26. She is continued on Ferrlecit and scheduled for transfusion 1 unit packed RBCs. IV fluids at 50 mL per hour. Patient will complete Mucomyst today. Repeat Ultrasound of the groin today. Bladder scan as needed. 11/27: Yesterday patient underwent repair of perforation of a right profunda femoris artery and evacuation of right groin hematoma with Dr. Ybarra and was subsequently admitted to the ICU. She has a Rosario catheter in place and urine output has been adequate. Rosario will be discontinued this morning. She states she has much decreased pain to the right groin area. She denies any chest pain , shortness of breath. PT is working with her today. Patient is receiving her third dose of Ferrlecit. She has completed her course of Mucomyst. IV fluids at 50 mL per hour. Repeat BUN 40 and creatinine 2.3. Repeat chest x-ray shows borderline cardiomegaly and interstitial prominence which may be chronic. Correlate to exclude mild CHF. 11/28: Patient states that the groin site remains better in regards to pain. Site is warm to the touch. She did have a temperature of 101.2 this morning blood cultures, urinalysis urine culture and chest x-ray have been ordered. Patient does not have a cough or sputum production. She is complaining of feeling achy all over. She has minimal urine output Rosario was removed last night. Morning blood sugar was 95 and patient is on insulin pump. BUN 40 with creatinine 2.7 and hemoglobin 8.4. Infectious disease consult added. Patient is complaining of sore throat for which Cepacol lozenges added. 11/29: Patient is more comfortable able to ambulate out of bed with help her hemoglobin dropped down slightly but she is feeling better she was transfer out of the intensive care unit yesterday. No need for blood transfusion yet but hemoglobin is below 8 we'll wait till tomorrow repeat another CBC if it remain in the mid 7 transfusion be done. Expectation for discharge hopefully over the next 48 hours creatinine has plateau over the last 2 days with no significant declining kidney function at this point 11/30: Ultrasound venous Doppler duplex of the right lower extremity is negative for DVT. Patient complains of nausea this morning for which Zofran has been added. She was given Lasix 60 mg IV 1. She states her breathing status is okay. Repeat BUN 40 and creatinine 2.8, potassium 4.1. Hemoglobin 7.8. She is currently on Ceftaroline and followed by Dr. Rendon. Objective - Vital Signs Vital signs: Vital Signs Temp 97.3 F L 11/30/16 12:10 Pulse 74 11/30/16 12:10 Resp 18 11/30/16 12:10 BP 124/57 11/30/16 12:10 Pulse Ox 94 L 11/30/16 12:10 Intake & Output 11/29/16 11/30/16 11/30/16 18:59 06:59 18:59 Intake Total 730 600 750 Output Total 1000 600 Balance 730 -400 150 Weight 104.6 kg Intake: Intake, IV Titration 250 250 Amount Ceftaroline Fosamil 300 250 250 mg In Sodium Chloride 0.9 % 250 ml @ 250 mls/hr IVPB Q12HR@0000,1200 [facility] Rx#:[id number] Oral 480 600 500 Output: Urine 1000 600 Other: Voiding Method Indwelling Catheter Indwelling Catheter Indwelling Catheter # Voids 0 - Exam General appearance: no average body habitus, cooperative, no disheveled, no mild distress, no morbidly obese, no acute distress, no obese, no severe distress, no thin - EENT Eyes: no abnormal pupil, no anicteric sclerae, no disc margins sharp, no edentulous, no EOMI, no PERRLA, no fundus normal, no photophobia, no dentition normal, no poor dentition, no ptosis, no scleral icterus, normal appearance ENT: no hard of hearing, no hearing grossly normal, no NA/AT, normal oropharynx , no other, no pharyngeal erythema, no thrush, no tonsillar exudates, no tonsillar swelling Ears: bilateral: normal - Neck Neck: no lymphadenopathy, normal ROM, no other, no rigidity, no stridor, no thyromegaly Carotids: bilateral: upstroke normal Thyroid: bilateral: normal size - Respiratory Respiratory: bilateral: CTA, diminished - Cardiovascular Rhythm: regular Heart sounds: normal: S1, S2 Abnormal Heart Sounds: systolic murmur - Gastrointestinal General gastrointestinal: no absent bowel sounds, decreased bowel sounds, no distended, no hepatomegaly, no hyperactive bowel sounds, normal bowel sounds, no organomegaly, no rigid, no scaphoid, soft, no splenomegaly, no tenderness, no umbilical hernia, no ventral hernia - Integumentary Integumentary: Large mass in the right groin, less tender, no cyanotic, no decreased turgor, no flushed, no jaundiced, normal, no normal turgor, pale, rash , no ulcer - Neurologic Neurologic: CNII-XII intact - Musculoskeletal Musculoskeletal: gait normal, generalized weakness, strength equal bilaterally, no right sided weakness, no left sided weakness - Psychiatric Psychiatric: A&O x's 3, appropriate affect, no intact judgment & insight - Labs CBC & Chem 7: 11/30/16 05:51 11/30/16 05:51 Labs: Abnormal Lab Results - Last 24 Hours (Table) 11/25/16 11/29/16 11/29/16 Range/Units 12:02 16:50 21:13 RBC (3.80-5.40) m/uL Hgb (11.4-16.0) gm/dL Hct (34.0-46.0) % Sodium (137-145) mmol/L Carbon Dioxide (22-30) mmol/L BUN (7-17) mg/dL Creatinine (0.52-1.04) mg/dL Glucose (74-99) mg/dL POC Glucose (mg/dL) 190 H 183 H (75-99) mg/dL Total Protein (6.3-8.2) g/dL Albumin (3.5-5.0) g/dL Crossmatch See Detail 11/30/16 11/30/16 11/30/16 Range/Units 05:51 05:51 06:11 RBC 2.60 L (3.80-5.40) m/uL Hgb 7.8 L (11.4-16.0) gm/dL Hct 24.7 L (34.0-46.0) % Sodium 127 L (137-145) mmol/L Carbon Dioxide 14 L (22-30) mmol/L BUN 40 H (7-17) mg/dL Creatinine 2.80 H (0.52-1.04) mg/dL Glucose 109 H (74-99) mg/dL POC Glucose (mg/dL) 117 H (75-99) mg/dL Total Protein 5.1 L (6.3-8.2) g/dL Albumin 2.7 L (3.5-5.0) g/dL Crossmatch 11/30/16 Range/Units 12:00 RBC (3.80-5.40) m/uL Hgb (11.4-16.0) gm/dL Hct (34.0-46.0) % Sodium (137-145) mmol/L Carbon Dioxide (22-30) mmol/L BUN (7-17) mg/dL Creatinine (0.52-1.04) mg/dL Glucose (74-99) mg/dL POC Glucose (mg/dL) 184 H (75-99) mg/dL Total Protein (6.3-8.2) g/dL Albumin (3.5-5.0) g/dL Crossmatch Microbiology - Last 24 Hours (Table) 11/28/16 10:03 Blood Culture - Preliminary Blood No Growth after 48 hours 11/28/16 08:53 Blood Culture - Preliminary Blood No Growth after 48 hours 11/28/16 09:55 Urine Culture - Final Urine,Catheterized Assessment and Plan Plan: 1 CAD: With multiple coronary artery disease patent lesion in the RCA with stent still open, had 2 more lesion 1 in the LAD and one in the circumflex which Dr. Ahmadi has done an angioplasty and stent placement successfully. 2. Right common femoral hematoma and pseudoaneurysm with possible early sepsis and wound infection developing. Dr. Ybarra on consult. Plan for thrombin injection of the right femoral pseudoaneurysm. Status post repair of pseudoaneurysm right groin. Blood cultures, urine culture, urinalysis, chest x- ray and ID consult added. 3. post IA with acute coronary syndrome: Patient has done well since her last admission. 4. Acute kidney injury on chronic kidney disease stage III post kidney transplant, patient is still seen nephrology regular basis which will be followed daily with repeat BUN/creatinine. 5. diabetes mellitus type 2: Patient is on insulin pump continue insulin pump watch her Accu-Chek with sliding scales coverage. 6. hyperlipidemia: On Lipitor 20 mg daily. 7. GERD: Patient is on Zantac or H2 jai and doing well. 8. post renal transplant: Patient to continue CellCept 750 mg orally twice a day along with Prograf 2 mg twice a day and prednisone 5 mg daily. 9. hypertension: Doing very well on current medication resume atenolol 100 mg daily. CODE STATUS: Full code. Discharge plan: Return home Impression and plan of care have been directed as dictated by the signing physician. Lainey Cameron nurse practitioner acting as scribe for signing physician. Time with Patient: Greater than 30
[2016-11-30 17:45] LABS: Glucose,Whole Blood 93 mg/dL (75-99)
--- NOTE | 2016-11-30 19:09 | P.PN ---
Subjective Principal diagnosis: Coronary artery disease 66-year-old female who has a known history of coronary artery disease was hospitalized in early November 2016 with an acute myocardial infarction. Evidence of Stenosis of Her Left Anterior Descending Artery in Her Circumflex. With a History of Renal Transplantation It Was Noted That Her Renal Function Had Worsened a Bit. Because She Was Stable Was Plan for Readmission for Her Angioplasty. She then Was Readmitted and Angioplasty Occurred on 11/23/2016. She Is Doing Modestly Well However Developed Difficulty with Pain to Her Right Groin. There Is Evidence of a Pseudoaneurysm. She's Been Taking to the Operating Room and the aneurysm has Been Repaired. She then started Having Difficulties with Increasing Tenderness Erythema and Some Scant Serous Drainage. Some Scant Bloody Drainage Inferior to the Incision from Her Prior Dressing. She then Developed a Temperature 101.2 which fortunately has resolved It is noted that there is potential for thrombin injection if needed Objective - Vital Signs Vital signs: Vital Signs Temp 97.3 F L 11/30/16 12:10 Pulse 74 11/30/16 12:10 Resp 18 11/30/16 12:10 BP 124/57 11/30/16 12:10 Pulse Ox 94 L 11/30/16 12:10 Intake & Output 11/30/16 11/30/16 12/01/16 06:59 18:59 06:59 Intake Total 600 750 Output Total 1000 600 Balance -400 150 Weight 104.6 kg Intake: Intake, IV Titration 250 Amount Ceftaroline Fosamil 300 250 mg In Sodium Chloride 0.9 % 250 ml @ 250 mls/hr IVPB Q12HR@0000,1200 [facility] Rx#:[id number] Oral 600 500 Output: Urine 1000 600 Other: Voiding Method Indwelling Catheter Indwelling Catheter # Voids 0 # Bowel Movements 1 - Exam pleasant 66 -year-old woman who issitting up in the chair. The exertion made her feel somewhat HEENT: Anicteric conjunctiva are pink and moist nasal mucosa grossly intact without significant lesions, there is no thrush. Neck: The neck is supple without significant lymphadenopathy or thyromegaly. Lungs: Symmetrical air entry. Bibasilar crackles are heard. No kurt bronchial sounds. Heart: Irregular with an audible S1 and S2 soft S4 no murmur click or rub PMI was nondisplaced Abdomen: obese,Positive bowel sounds soft and nontender without palpable masses or organomegaly. There was no guarding or rebound. Extremities: The upper extremities have excellent pulses they are symmetric, no significant petechiae or telangiectasia. No splinter hemorrhages were noted. Lower extremities evidence of generalized edema. Left lower extremities hasbeen abnormalities. Neurologic she was as the recent surgical intervention to the right groin. Surgical incision is intact. There is a scant amount of drainage on the dressing. Nothing is expressible. She is a small tape injury was some bleeding it's distal on the thigh. There is some mild surrounding erythema. It is somewhat tender to touch. But not exquisitely so. No odor is noted. There is no ascending erythema that is noted Neuro: Awake alert oriented to person place and time. There are no acute new gross focal sensory motor deficits. - Labs CBC & Chem 7: 11/30/16 05:51 11/30/16 05:51 Labs: Abnormal Lab Results - Last 24 Hours (Table) 11/25/16 11/29/16 11/30/16 Range/Units 12:02 21:13 05:51 RBC (3.80-5.40) m/uL Hgb (11.4-16.0) gm/dL Hct (34.0-46.0) % Sodium 127 L (137-145) mmol/L Carbon Dioxide 14 L (22-30) mmol/L BUN 40 H (7-17) mg/dL Creatinine 2.80 H (0.52-1.04) mg/dL Glucose 109 H (74-99) mg/dL POC Glucose (mg/dL) 183 H (75-99) mg/dL Total Protein 5.1 L (6.3-8.2) g/dL Albumin 2.7 L (3.5-5.0) g/dL Crossmatch See Detail 11/30/16 11/30/16 11/30/16 Range/Units 05:51 06:11 12:00 RBC 2.60 L (3.80-5.40) m/uL Hgb 7.8 L (11.4-16.0) gm/dL Hct 24.7 L (34.0-46.0) % Sodium (137-145) mmol/L Carbon Dioxide (22-30) mmol/L BUN (7-17) mg/dL Creatinine (0.52-1.04) mg/dL Glucose (74-99) mg/dL POC Glucose (mg/dL) 117 H 184 H (75-99) mg/dL Total Protein (6.3-8.2) g/dL Albumin (3.5-5.0) g/dL Crossmatch Microbiology - Last 24 Hours (Table) 11/28/16 10:03 Blood Culture - Preliminary Blood No Growth after 48 hours 11/28/16 08:53 Blood Culture - Preliminary Blood No Growth after 48 hours 11/28/16 09:55 Urine Culture - Final Urine,Catheterized Laboratory Results WBC 7.8 k/uL (3.8-10.6) 11/30/16 05:51 RBC 2.60 m/uL (3.80-5.40) L 11/30/16 05:51 Hgb 7.8 gm/dL (11.4-16.0) L 11/30/16 05:51 Hct 24.7 % (34.0-46.0) L 11/30/16 05:51 MCV 94.8 fL (80.0-100.0) 11/30/16 05:51 MCH 29.8 pg (25.0-35.0) 11/30/16 05:51 MCHC 31.4 g/dL (31.0-37.0) 11/30/16 05:51 RDW 14.6 % (11.5-15.5) 11/30/16 05:51 Plt Count 273 k/uL (150-450) 11/30/16 05:51 Neutrophils % 66 % 11/30/16 05:51 Lymphocytes % 14 % 11/30/16 05:51 Monocytes % 10 % 11/30/16 05:51 Eosinophils % 5 % 11/30/16 05:51 Basophils % 1 % 11/30/16 05:51 Neutrophils # 5.2 k/uL (1.3-7.7) 11/30/16 05:51 Lymphocytes # 1.1 k/uL (1.0-4.8) 11/30/16 05:51 Monocytes # 0.8 k/uL (0-1.0) 11/30/16 05:51 Eosinophils # 0.4 k/uL (0-0.7) 11/30/16 05:51 Basophils # 0.0 k/uL (0-0.2) 11/30/16 05:51 Hypochromasia Slight 11/30/16 05:51 PT 11.1 sec (9.0-12.0) 11/27/16 04:46 INR 1.1 (<1.1) 11/27/16 04:46 Sodium 127 mmol/L (137-145) L 11/30/16 05:51 Potassium 4.1 mmol/L (3.5-5.1) 11/30/16 05:51 Chloride 100 mmol/L (98-107) 11/30/16 05:51 Carbon Dioxide 14 mmol/L (22-30) L 11/30/16 05:51 Anion Gap 13 mmol/L 11/30/16 05:51 BUN 40 mg/dL (7-17) H 11/30/16 05:51 Creatinine 2.80 mg/dL (0.52-1.04) H 11/30/16 05:51 Est GFR (MDRD) Af Amer 20 (>60 ml/min/1.73 sqM) 11/30/16 05:51 Est GFR (MDRD) Non-Af 17 (>60 ml/min/1.73 sqM) 11/30/16 05:51 Glucose 109 mg/dL (74-99) H 11/30/16 05:51 POC Glucose (mg/dL) 93 mg/dL (75-99) 11/30/16 17:40 POC Glu Farm Consultant ID Raeann George 11/30/16 17:[address] Glu mg/dL 154 mg/dL 11/27/16 04:46 Hemoglobin A1c 7.0 % (4.2-6.1) H 11/27/16 04:46 Osmolality 275 mosm/kg (280-301) L 11/29/16 06:12 Calcium 8.7 mg/dL (8.4-10.2) 11/30/16 05:51 Phosphorus 4.8 mg/dL (2.5-4.5) H 11/27/16 04:46 Magnesium 1.7 mg/dL (1.6-2.3) 11/27/16 04:46 Iron 42 ug/dL (37-170) 11/24/16 07:48 TIBC 238 ug/dL (265-497) L 11/24/16 07:48 % Saturation 17.6 % (20-50) L 11/24/16 07:48 Ferritin 168 ng/mL (11-264) 11/24/16 07:48 Total Bilirubin 0.8 mg/dL (0.2-1.3) 11/30/16 05:51 AST 16 U/L (14-36) 11/30/16 05:51 ALT 33 U/L (9-52) 11/30/16 05:51 Alkaline Phosphatase 67 U/L (38-126) 11/30/16 05:51 Total Protein 5.1 g/dL (6.3-8.2) L 11/30/16 05:51 Albumin 2.7 g/dL (3.5-5.0) L 11/30/16 05:51 Urine Color Yellow 11/28/16 09:55 Urine Appearance Clear (Clear) 11/28/16 09:55 Urine pH 5.5 (5.0-8.0) 11/28/16 09:55 Ur Specific [place] 1.010 (1.001-1.035) 11/28/16 09:55 Urine Protein 2+ (Negative) H 11/28/16 09:55 Urine Glucose (UA) Negative (Negative) 11/28/16 09:55 Urine Ketones Negative (Negative) 11/28/16 09:55 Urine Blood Negative (Negative) 11/28/16 09:55 Urine Nitrate Negative (Negative) 11/28/16 09:55 Urine Bilirubin Negative (Negative) 11/28/16 09:55 Urine Urobilinogen <2.0 mg/dL (<2.0) 11/28/16 09:55 Ur Leukocyte Esterase Negative (Negative) 11/28/16 09:55 Urine WBC 1 /hpf (0-5) 11/28/16 09:55 Urine Mucus Rare /hpf (None) H 11/28/16 09:55 Urine Osmolality 255 mosm/kg (50-1400) 11/29/16 11:26 Ur Random Sodium <5 mmol/L (30-90) L 11/29/16 11:26 Ur Random Potassium 23.4 mmol/L 11/29/16 11:26 Blood Type A Positive 11/25/16 12:02 Blood Type Confirm A Positive 11/24/16 20:03 Blood Type Recheck CABO Indicated 11/25/16 12:02 Antibody Screen NEGATIVE 11/25/16 12:02 Crossmatch See Detail 11/25/16 12:02 Spec Expiration Date 11/28/2016230111/25/16 12:02 Microbiology 11/28/16 10:03 Blood Blood Culture - Preliminary No Growth after 48 hours 11/28/16 08:53 Blood Blood Culture - Preliminary No Growth after 48 hours 11/28/16 09:55 Urine,Catheterized Urine Culture - Final Assessment and Plan (1) Fever Narrative/Plan: 66-year-old male presents to Hospital after her myocardial infarction earlier this year. She presented for her cardiac intervention and stenting was performed to the LAD and circumflex. She been doing well but was having some difficulty with her right groin. In that she developed a temperature 101.2. She has been seen by vascular surgery and repair of her pseudoaneurysms occurred. As evidence of some fever 101.2 erythema and tenderness to the site. With this is concerned infection at that area. She has a known history of vancomycin ALLERGY. With this Ceftaroline 400 mg IV piggyback every 12 hours as utilized. She give coverage for staph including MRSA as well as some routine gram-negative organisms such as E. coli that are in the groin. There is no drainage at this time for culture. Blood cultures are in process. And are negative so far She is symptomatically stable. With her ALLERGIES since she is improving and getting ready for discharge to home ulceration to doxycycline 100 mg twice per day can be utilized She is feeling better except for shortness of breath which has been improving. Does have a history of renal transplantation. Her creatinine is up from her baseline of 1.6, 2.8 today. She is monitored closely from nephrology. Receiving some diuresis for her significant volume overload. Status: Acute (2) Pseudoaneurysm of right femoral artery Status: Acute (3) Cellulitis of right thigh Status: Acute
[2016-11-30 20:51] LABS: Glucose,Whole Blood 182 mg/dL (75-99)
[2016-11-30] MEDS: ALPRAZolam 0.25 MG TAB PO PRN (20:56)
[2016-12-01] MEDS: hydrALAZINE HCL 50 MG TAB PO SCH ×4 (00:10→21:09)
[2016-12-01] MEDS: CEFTAROLINE FOSAMIL 300 MG in SODIUM CHLORIDE 0.9% 250 ML IVPB SCH ×3 (00:13→23:38)
[2016-12-01 00:20] LABS: Glucose,Whole Blood 104 mg/dL (75-99)
[2016-12-01 05:32] LABS: Glucose,Whole Blood 80 mg/dL (75-99)
[2016-12-01 06:08] LABS: Glucose,Whole Blood 79 mg/dL (75-99)
[2016-12-01] MEDS: FERROUS SULFATE 325 MG TAB PO SCH ×2 (06:28→16:26)
[2016-12-01] MEDS: INSULIN PUMP MEAL BOLUS 1 UNIT MISC MISCELLANE SCH ×3 (06:31→17:07)
[2016-12-01 08:05] LABS: Calcium 9.3 mg/dL (8.4-10.2); Potassium 4.1 mmol/L (3.5-5.1)
[2016-12-01] MEDS: LEVALBUTEROL NEB 1.25 MG/3 ML AMP INHALATION SCH ×4 (08:11→19:58)
[2016-12-01] MEDS: ASPIRIN 81 MG CHEW PO SCH (08:24)
[2016-12-01] MEDS: MYCOPHENOLATE MOFETIL 250 MG CAP PO SCH ×2 (08:24→21:09)
[2016-12-01] MEDS: predniSONE 5 MG TAB PO SCH (08:24)
[2016-12-01] MEDS: LACTULOSE 20 GM/30 ML CUP PO SCH ×3 (08:25→21:09)
[2016-12-01] MEDS: CLOPIDOGREL 75 MG TAB PO SCH (08:25)
[2016-12-01] MEDS: ATENOLOL 50 MG TAB PO SCH (08:25)
[2016-12-01] MEDS: ATORVASTATIN 80 MG TAB PO SCH (08:25)
[2016-12-01] MEDS: amLODIPine 5 MG TAB PO SCH ×2 (08:25→21:09)
[2016-12-01] MEDS: TACROLIMUS 1 MG CAP PO SCH ×2 (08:26→21:08)
[2016-12-01] MEDS: RANITIDINE SYRUP 150 MG/10 ML CUP PO SCH (08:26)
[2016-12-01] MEDS: SODIUM BICARBONATE TAB 650 MG TAB PO SCH ×2 (08:26→21:08)
[2016-12-01 08:41] LABS: Glucose,Whole Blood 82 mg/dL (75-99)
[2016-12-01 08:50] LABS: CH 30.3; CHCM 33.7; HCT 26.1 % (34.0-46.0); HDW 2.95; HGB 8.3 gm/dL (11.4-16.0); MCH 28.8 pg (25.0-35.0); MCHC 31.8 g/dL (31.0-37.0); MCV 90.5 fL (80.0-100.0); Mean Platelet Volume 7.4; RBC 2.89 m/uL (3.80-5.40); RDW 14.9 % (11.5-15.5); WBC 9.7 k/uL (3.8-10.6)
[2016-12-01] MEDS ORDERED: FUROSEMIDE 10 MG/ML 10 ML VIAL IV STA (09:32)
--- NOTE | 2016-12-01 09:34 | P.PN ---
Subjective Patient is seen in follow-up for chronic kidney disease and renal transplant management. She underwent a cardiac catheterization on November 24 and had 2 stents placed to the circumflex. She did develop a pseudoaneurysm and underwent evacuation of hematoma on November 26. Her hemoglobin was down to 6.5 for which she did receive packed red blood cell transfusion. Hemoglobin 8.3 this morning. She denies any chest pain. Does feel dyspneic at times. No vomiting or diarrhea. Her baseline creatinine is 1.6 and is elevated at 2.94 today. She did develop fever on November 28. Cultures have been negative so far. Rosario catheter was discontinued however she continues to have urinary retention. Straight catheterization this morning revealed 1 L of urine. Vital signs are stable. General: The patient appeared well nourished and normally developed. HEENT: Head exam is unremarkable. Neck is without jugular venous distension. LUNGS: Lungs are clear to auscultation and percussion. Breath sounds decreased. HEART: Rate and Rhythm are regular. First and second heart sounds normal. No murmurs, rubs or gallops. ABDOMEN: Abdominal exam reveals normal bowel sounds. Non-tender and non- distended. No evidence of peritonitis. EXTREMITITES: 1+ edema. Objective - Vital Signs Vital signs: Vital Signs Temp 97 F L 12/01/16 08:00 Pulse 76 12/01/16 08:00 Resp 16 12/01/16 08:00 BP 123/45 12/01/16 08:00 Pulse Ox 91 L 12/01/16 08:00 Intake & Output 11/30/16 12/01/16 12/01/16 18:59 06:59 18:59 Intake Total 750 700 Output Total 600 1000 Balance 150 700 -1000 Weight 104.6 kg Intake: Intake, IV Titration 250 Amount Ceftaroline Fosamil 300 250 mg In Sodium Chloride 0.9 % 250 ml @ 250 mls/hr IVPB Q12HR@0000,1200 [facility] Rx#:[id number] Oral 500 700 Output: Urine 600 1000 Straight 1000 Other: Voiding Method Indwelling Catheter Indwelling Catheter # Voids 0 0 # Bowel Movements 1 1 - Labs CBC & Chem 7: 12/01/16 06:27 12/01/16 06:37 Labs: Abnormal Lab Results - Last 24 Hours (Table) 11/30/16 11/30/16 12/01/16 Range/Units 12:00 20:50 00:15 RBC (3.80-5.40) m/uL Hgb (11.4-16.0) gm/dL Hct (34.0-46.0) % Sodium (137-145) mmol/L Carbon Dioxide (22-30) mmol/L BUN (7-17) mg/dL Creatinine (0.52-1.04) mg/dL Glucose (74-99) mg/dL POC Glucose (mg/dL) 184 H 182 H 104 H (75-99) mg/dL 12/01/16 12/01/16 Range/Units 06:27 06:37 RBC 2.89 L (3.80-5.40) m/uL Hgb 8.3 L (11.4-16.0) gm/dL Hct 26.1 L (34.0-46.0) % Sodium 131 L (137-145) mmol/L Carbon Dioxide 19 L (22-30) mmol/L BUN 41 H (7-17) mg/dL Creatinine 2.94 H (0.52-1.04) mg/dL Glucose 49 L* (74-99) mg/dL POC Glucose (mg/dL) (75-99) mg/dL Microbiology - Last 24 Hours (Table) 11/28/16 10:03 Blood Culture - Preliminary Blood No Growth after 48 hours 11/28/16 08:53 Blood Culture - Preliminary Blood No Growth after 48 hours Assessment and Plan Plan: Assessment: #1. Chronic kidney disease stage III with baseline creatinine near 1.6. #2. 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 #3. Diabetes mellitus. #4. Coronary artery disease. #5. Anemia. Iron deficiency present. #6. Nonoliguric acute kidney injury from contrast-induced nephropathy as well as anemia. Also has urinary retention. Creatinine elevated at 2.94 today. #7. Pseudoaneurysm of the groin status post evacuation of hematoma on November 26. #8. Hypervolemic hyponatremia. Improving. Sodium level 131 today. #9. Metabolic acidosis secondary to acute kidney injury. #10. Urinary retention. Plan: Avoid nephrotoxic agents and hypotensive episodes. Hep-Lock IV fluids. Lasix 60 mg IV once today. Maintain fluid restriction. Status post Mucomyst. Status post 3 doses of IV iron and completed on November 27. Repeat electrolytes in the morning. Maintain current immunosuppression with Prograf, CellCept, and prednisone. Continue to monitor renal function and urine output. Follow-up cultures. Antibiotics per infectious disease recommendations. Continue oral sodium bicarbonate supplementation. Add Flomax. Continue to monitor serial postvoid residuals. May need a Rosario catheter reinserted.
[2016-12-01] MEDS: TAMSULOSIN 0.4 MG CAP.ER.24H PO SCH (10:03)
[2016-12-01] MEDS: CHOLECALCIFEROL 1,000 UNIT TAB PO SCH (11:33)
[2016-12-01 12:08] LABS: Glucose,Whole Blood 173 mg/dL (75-99)
--- NOTE | 2016-12-01 13:08 | P.PN ---
Subjective 66-year-old female one of my office patient of known for long time was hospitalized in November 05 of November 10, 2016 for acute myocardial infarction with acute coronary syndrome ended up going for angiogram showed significant stenosis in the LAD and circumflex. Patient kidney function had declined slightly ended up going home after being hydrated and watch her kidney function was seen in the office and see Dr. Ahmadi and patient brought to the hospital on 11/23/2016 for an angioplasty, procedure was done successfully and patient is resting comfortably with no complaint, nephrology consultation was requested and BUN/creatinine to be done an daily basis for the next 2 days. Patient will be admitted for 48 hours. 11/25: Hemoglobin 7.1, BUN 36 and creatinine 1.9. She is status post PTCA and stenting of a complex torturous mid circumflex coronary artery. Nephrology is following. She is continued on Mucomyst and scheduled for IV Ferrlecit 3 days. Patient has developed a right common femoral hematoma and pseudoaneurysm. Dr. Ybarra has evaluated the patient and she is a candidate for thrombin injection of the right femoral pseudoaneurysm. 11/26: Hemoglobin 6.5, BUN 41 and creatinine 2.26. She is continued on Ferrlecit and scheduled for transfusion 1 unit packed RBCs. IV fluids at 50 mL per hour. Patient will complete Mucomyst today. Repeat Ultrasound of the groin today. Bladder scan as needed. 11/27: Yesterday patient underwent repair of perforation of a right profunda femoris artery and evacuation of right groin hematoma with Dr. Ybarra and was subsequently admitted to the ICU. She has a Rosario catheter in place and urine output has been adequate. Rosario will be discontinued this morning. She states she has much decreased pain to the right groin area. She denies any chest pain , shortness of breath. PT is working with her today. Patient is receiving her third dose of Ferrlecit. She has completed her course of Mucomyst. IV fluids at 50 mL per hour. Repeat BUN 40 and creatinine 2.3. Repeat chest x-ray shows borderline cardiomegaly and interstitial prominence which may be chronic. Correlate to exclude mild CHF. 11/28: Patient states that the groin site remains better in regards to pain. Site is warm to the touch. She did have a temperature of 101.2 this morning blood cultures, urinalysis urine culture and chest x-ray have been ordered. Patient does not have a cough or sputum production. She is complaining of feeling achy all over. She has minimal urine output Rosario was removed last night. Morning blood sugar was 95 and patient is on insulin pump. BUN 40 with creatinine 2.7 and hemoglobin 8.4. Infectious disease consult added. Patient is complaining of sore throat for which Cepacol lozenges added. 11/29: Patient is more comfortable able to ambulate out of bed with help her hemoglobin dropped down slightly but she is feeling better she was transfer out of the intensive care unit yesterday. No need for blood transfusion yet but hemoglobin is below 8 we'll wait till tomorrow repeat another CBC if it remain in the mid 7 transfusion be done. Expectation for discharge hopefully over the next 48 hours creatinine has plateau over the last 2 days with no significant declining kidney function at this point 11/30: Ultrasound venous Doppler duplex of the right lower extremity is negative for DVT. Patient complains of nausea this morning for which Zofran has been added. She was given Lasix 60 mg IV 1. She states her breathing status is okay. Repeat BUN 40 and creatinine 2.8, potassium 4.1. Hemoglobin 7.8. She is currently on Ceftaroline and followed by Dr. Rendon. 12/01: BUN today is [address] Rendon as recommended most likely doxycycline at the time of discharge.she is status post Lasix 1 dose today. She is on fluid restriction.she hasn't some problem with urinary retention for which she was straight cathed.nephrology has started Flomax. Objective - Vital Signs Vital signs: Vital Signs Temp 97 F L 12/01/16 08:00 Pulse 76 12/01/16 08:00 Resp 16 12/01/16 08:00 BP 123/45 12/01/16 08:00 Pulse Ox 91 L 12/01/16 08:00 Intake & Output 11/30/16 12/01/16 12/01/16 18:59 06:59 18:59 Intake Total 750 700 Output Total 600 1000 Balance 150 700 -1000 Weight 104.6 kg Intake: Intake, IV Titration 250 Amount Ceftaroline Fosamil 300 250 mg In Sodium Chloride 0.9 % 250 ml @ 250 mls/hr IVPB Q12HR@0000,1200 [facility] Rx#:[id number] Oral 500 700 Output: Urine 600 1000 Straight 1000 Other: Voiding Method Indwelling Catheter Indwelling Catheter # Voids 0 0 # Bowel Movements 1 1 - Exam General appearance: no average body habitus, cooperative, no disheveled, no mild distress, no morbidly obese, no acute distress, no obese, no severe distress, no thin - EENT Eyes: no abnormal pupil, no anicteric sclerae, no disc margins sharp, no edentulous, no EOMI, no PERRLA, no fundus normal, no photophobia, no dentition normal, no poor dentition, no ptosis, no scleral icterus, normal appearance ENT: no hard of hearing, no hearing grossly normal, no NA/AT, normal oropharynx , no other, no pharyngeal erythema, no thrush, no tonsillar exudates, no tonsillar swelling Ears: bilateral: normal - Neck Neck: no lymphadenopathy, normal ROM, no other, no rigidity, no stridor, no thyromegaly Carotids: bilateral: upstroke normal Thyroid: bilateral: normal size - Respiratory Respiratory: bilateral: CTA, diminished - Cardiovascular Rhythm: regular Heart sounds: normal: S1, S2 Abnormal Heart Sounds: systolic murmur - Gastrointestinal General gastrointestinal: no absent bowel sounds, decreased bowel sounds, no distended, no hepatomegaly, no hyperactive bowel sounds, normal bowel sounds, no organomegaly, no rigid, no scaphoid, soft, no splenomegaly, no tenderness, no umbilical hernia, no ventral hernia - Integumentary Integumentary: Large mass in the right groin, less tender, no cyanotic, no decreased turgor, no flushed, no jaundiced, normal, no normal turgor, pale, rash , no ulcer - Neurologic Neurologic: CNII-XII intact - Musculoskeletal Musculoskeletal: gait normal, generalized weakness, strength equal bilaterally, no right sided weakness, no left sided weakness - Psychiatric Psychiatric: A&O x's 3, appropriate affect, no intact judgment & insight - Labs CBC & Chem 7: 12/01/16 06:27 12/01/16 06:37 Labs: Abnormal Lab Results - Last 24 Hours (Table) 11/30/16 11/30/16 12/01/16 Range/Units 12:00 20:50 00:15 RBC (3.80-5.40) m/uL Hgb (11.4-16.0) gm/dL Hct (34.0-46.0) % Sodium (137-145) mmol/L Carbon Dioxide (22-30) mmol/L BUN (7-17) mg/dL Creatinine (0.52-1.04) mg/dL Glucose (74-99) mg/dL POC Glucose (mg/dL) 184 H 182 H 104 H (75-99) mg/dL 12/01/16 12/01/16 Range/Units 06:27 06:37 RBC 2.89 L (3.80-5.40) m/uL Hgb 8.3 L (11.4-16.0) gm/dL Hct 26.1 L (34.0-46.0) % Sodium 131 L (137-145) mmol/L Carbon Dioxide 19 L (22-30) mmol/L BUN 41 H (7-17) mg/dL Creatinine 2.94 H (0.52-1.04) mg/dL Glucose 49 L* (74-99) mg/dL POC Glucose (mg/dL) (75-99) mg/dL Microbiology - Last 24 Hours (Table) 11/28/16 10:03 Blood Culture - Preliminary Blood No Growth after 48 hours 11/28/16 08:53 Blood Culture - Preliminary Blood No Growth after 48 hours Assessment and Plan Plan: 1 CAD: With multiple coronary artery disease patent lesion in the RCA with stent still open, had 2 more lesion 1 in the LAD and one in the circumflex which Dr. Ahmadi has done an angioplasty and stent placement successfully. 2. Right common femoral hematoma and pseudoaneurysm with possible early sepsis and wound infection developing. Dr. Ybarra on consult. Plan for thrombin injection of the right femoral pseudoaneurysm. Status post repair of pseudoaneurysm right groin. Blood cultures, urine culture, urinalysis, chest x- ray and ID consult added. 3. post CA with acute coronary syndrome: Patient has done well since her last admission. 4. Acute kidney injury on chronic kidney disease stage III post kidney transplant, patient is still seen nephrology regular basis which will be followed daily with repeat BUN/creatinine. 5. diabetes mellitus type 2: Patient is on insulin pump continue insulin pump watch her Accu-Chek with sliding scales coverage. 6. hyperlipidemia: On Lipitor 20 mg daily. 7. GERD: Patient is on Zantac or H2 jai and doing well. 8. post renal transplant: Patient to continue CellCept 750 mg orally twice a day along with Prograf 2 mg twice a day and prednisone 5 mg daily. 9. hypertension: Doing very well on current medication resume atenolol 100 mg daily. 10. Urinary retention for which patient required straight cath. Flomax added. CODE STATUS: Full code. Discharge plan: Return home Impression and plan of care have been directed as dictated by the signing physician. Lainey Cameron nurse practitioner acting as scribe for signing physician. Time with Patient: Greater than 30
--- NOTE | 2016-12-01 15:31 | P.PN ---
Progress Note - Text urinary retention otherwise walking the halls with tolerating diet overall feels better AF VSS right groin; moderate erythema around incision; there is some partial thickness skin necrosis noted inferior portion of the incision; no infection, no recurrent hematoma or noticeable hematoma; right foot edema is improved; right foot is warm and viable Labs; reviewed impression/plan 1. s/p repair of right profunda femoris pseuodoaneurysm remains stable from vascular standpoint dressing changes ordered following f/u office on 12/07/2016 if discharged in next few days
--- NOTE | 2016-12-01 15:59 | P.PN ---
Subjective Principal diagnosis: Circumflex stent This is a pleasant 66-year-old female who was admitted to the hospital , underwent angioplasty, subsequently developed a pseudoaneurysm, requiring thrombin injection. Patient was in the intensive care unit over the weekend, now being followed on the telemetry unit. She does not have any fever or chills. White blood cell count is normal. Overall feeling much better today. She was up with physical therapy today, sitting up in the chair at the time of my examination. Having difficulty voiding, requiring straight cath. Creatinine 2.9 today. Objective - Vital Signs Vital signs: Vital Signs Temp 97 F L 12/01/16 08:00 Pulse 76 12/01/16 15:47 Resp 16 12/01/16 15:51 BP 125/51 12/01/16 12:00 Pulse Ox 91 L 12/01/16 12:00 Intake & Output 11/30/16 12/01/16 12/01/16 18:59 06:59 18:59 Intake Total 750 700 250 Output Total 600 1000 Balance 150 700 -750 Weight 104.6 kg Intake: Intake, IV Titration 250 250 Amount Ceftaroline Fosamil 300 250 250 mg In Sodium Chloride 0.9 % 250 ml @ 250 mls/hr IVPB Q12HR@0000,1200 [facility] Rx#:[id number] Oral 500 700 Output: Urine 600 1000 Straight 1000 Other: Voiding Method Indwelling Catheter Indwelling Catheter # Voids 0 0 # Bowel Movements 1 1 - Exam PHYSICAL EXAMINATION: HEENT: Head is atraumatic, normocephalic. Pupils equal, round. Neck is supple. There is no elevated jugular venous pressure. HEART EXAMINATION: Heart S1, S2 normal. No murmur or gallop heard. CHEST EXAMINATION: Circumflex clear with diminished air entry to bilateral bases ABDOMEN: Soft, obese, nontender. Bowel sounds are heard. No organomegaly noted. EXTREMITIES:[ 2+ peripheral pulses with large amount of ecchymosis from the groin down to the knee, significant tenderness. NEUROLOGIC patient is awake, alert and oriented -3. . - Labs CBC & Chem 7: 12/01/16 06:27 12/01/16 06:37 Labs: Abnormal Lab Results - Last 24 Hours (Table) 11/30/16 12/01/16 12/01/16 Range/Units 20:50 00:15 06:27 RBC 2.89 L (3.80-5.40) m/uL Hgb 8.3 L (11.4-16.0) gm/dL Hct 26.1 L (34.0-46.0) % Sodium (137-145) mmol/L Carbon Dioxide (22-30) mmol/L BUN (7-17) mg/dL Creatinine (0.52-1.04) mg/dL Glucose (74-99) mg/dL POC Glucose (mg/dL) 182 H 104 H (75-99) mg/dL 12/01/16 12/01/16 Range/Units 06:37 12:06 RBC (3.80-5.40) m/uL Hgb (11.4-16.0) gm/dL Hct (34.0-46.0) % Sodium 131 L (137-145) mmol/L Carbon Dioxide 19 L (22-30) mmol/L BUN 41 H (7-17) mg/dL Creatinine 2.94 H (0.52-1.04) mg/dL Glucose 49 L* (74-99) mg/dL POC Glucose (mg/dL) 173 H (75-99) mg/dL Microbiology - Last 24 Hours (Table) 11/28/16 10:03 Blood Culture - Preliminary Blood No Growth after 72 hours 11/28/16 08:53 Blood Culture - Preliminary Blood No Growth after 72 hours Assessment and Plan (1) Presence of stent in LAD coronary artery Status: Acute (2) Presence of stent in left circumflex coronary artery Status: Acute (3) Femoral artery pseudoaneurysm complicating cardiac catheterization Status: Acute (4) Renal insufficiency Status: Acute (5) Hx of kidney transplant Status: Acute (6) Diabetes Status: Acute (7) HTN (hypertension) Status: Acute (8) Hyperlipemia Status: Acute (9) Anemia Status: Acute Plan: From cardiology's perspective, we'll recommend to continue the patient on her current medications. Once she is discharged from the hospital she will follow- up with Dr. Menendez in the office. DNP note has been reviewed, I agree with a documented findings and plan of care. Patient was seen and examined.
[2016-12-01 17:25] LABS: Glucose,Whole Blood 229 mg/dL (75-99)
[2016-12-01] MEDS: INSULIN LISPRO SQ SCH ×2 (18:04→21:23)
[2016-12-01 21:23] LABS: Glucose,Whole Blood 351 mg/dL (75-99)
--- NOTE | 2016-12-01 21:34 | P.PN ---
Subjective Principal diagnosis: Coronary artery disease 66-year-old female who has a known history of coronary artery disease was hospitalized in early November 2016 with an acute myocardial infarction. Evidence of Stenosis of Her Left Anterior Descending Artery in Her Circumflex. With a History of Renal Transplantation It Was Noted That Her Renal Function Had Worsened a Bit. Because She Was Stable Was Plan for Readmission for Her Angioplasty. She then Was Readmitted and Angioplasty Occurred on 11/23/2016. She Is Doing Modestly Well However Developed Difficulty with Pain to Her Right Groin. There Is Evidence of a Pseudoaneurysm. She's Been Taking to the Operating Room and the aneurysm has Been Repaired. She then started Having Difficulties with Increasing Tenderness Erythema and Some Scant Serous Drainage. Some Scant Bloody Drainage Inferior to the Incision from Her Prior Dressing. She then Developed a Temperature 101.2 which fortunately has resolved Feeling much better today. Is contemplating her discharge plan. Objective - Vital Signs Vital signs: Vital Signs Temp 98.1 F 12/01/16 20:00 Pulse 79 12/01/16 20:00 Resp 18 12/01/16 20:00 BP 118/56 12/01/16 20:00 Pulse Ox 96 12/01/16 20:00 Intake & Output 12/01/16 12/01/16 12/02/16 06:59 18:59 06:59 Intake Total 700 250 Output Total 1000 Balance 700 -750 Weight 104.6 kg Intake: Intake, IV Titration 250 Amount Ceftaroline Fosamil 300 250 mg In Sodium Chloride 0.9 % 250 ml @ 250 mls/hr IVPB Q12HR@0000,1200 [facility] Rx#:[id number] Oral 700 Output: Urine 1000 Straight 1000 Other: Voiding Method Indwelling Catheter Indwelling Catheter # Voids 0 0 # Bowel Movements 1 - Exam pleasant 66 -year-old woman who issitting up in the chair. The exertion made her feel somewhat HEENT: Anicteric conjunctiva are pink and moist nasal mucosa grossly intact without significant lesions, there is no thrush. Neck: The neck is supple without significant lymphadenopathy or thyromegaly. Lungs: Symmetrical air entry. Bibasilar crackles are heard. No kurt bronchial sounds. Heart: Irregular with an audible S1 and S2 soft S4 no murmur click or rub PMI was nondisplaced Abdomen: obese,Positive bowel sounds soft and nontender without palpable masses or organomegaly. There was no guarding or rebound. Extremities: The upper extremities have excellent pulses they are symmetric, no significant petechiae or telangiectasia. No splinter hemorrhages were noted. Lower extremities evidence of generalized edema. Left lower extremities hasbeen abnormalities. Neurologic she was as the recent surgical intervention to the right groin. Surgical incision is intact. There is a scant amount of drainage on the dressing. Nothing is expressible. She is a small tape injury was some bleeding it's distal on the thigh. There is some mild surrounding erythema. It is somewhat tender to touch. But not exquisitely so. No odor is noted. There is no ascending erythema that is noted Neuro: Awake alert oriented to person place and time. There are no acute new gross focal sensory motor deficits. - Labs CBC & Chem 7: 12/01/16 06:27 12/01/16 06:37 Labs: Abnormal Lab Results - Last 24 Hours (Table) 12/01/16 12/01/16 12/01/16 Range/Units 00:15 06:27 06:37 RBC 2.89 L (3.80-5.40) m/uL Hgb 8.3 L (11.4-16.0) gm/dL Hct 26.1 L (34.0-46.0) % Sodium 131 L (137-145) mmol/L Carbon Dioxide 19 L (22-30) mmol/L BUN 41 H (7-17) mg/dL Creatinine 2.94 H (0.52-1.04) mg/dL Glucose 49 L* (74-99) mg/dL POC Glucose (mg/dL) 104 H (75-99) mg/dL 12/01/16 12/01/16 12/01/16 Range/Units 12:06 16:43 21:21 RBC (3.80-5.40) m/uL Hgb (11.4-16.0) gm/dL Hct (34.0-46.0) % Sodium (137-145) mmol/L Carbon Dioxide (22-30) mmol/L BUN (7-17) mg/dL Creatinine (0.52-1.04) mg/dL Glucose (74-99) mg/dL POC Glucose (mg/dL) 173 H 229 H 351 H (75-99) mg/dL Microbiology - Last 24 Hours (Table) 11/28/16 10:03 Blood Culture - Preliminary Blood No Growth after 72 hours 11/28/16 08:53 Blood Culture - Preliminary Blood No Growth after 72 hours Laboratory Results WBC 9.7 k/uL (3.8-10.6) 12/01/16 06:27 RBC 2.89 m/uL (3.80-5.40) L 12/01/16 06:27 Hgb 8.3 gm/dL (11.4-16.0) L 12/01/16 06:27 Hct 26.1 % (34.0-46.0) L 12/01/16 06:27 MCV 90.5 fL (80.0-100.0) 12/01/16 06:27 MCH 28.8 pg (25.0-35.0) 12/01/16 06:27 MCHC 31.8 g/dL (31.0-37.0) 12/01/16 06:27 RDW 14.9 % (11.5-15.5) 12/01/16 06:27 Plt Count 398 k/uL (150-450) 12/01/16 06:27 Neutrophils % 66 % 11/30/16 05:51 Lymphocytes % 14 % 11/30/16 05:51 Monocytes % 10 % 11/30/16 05:51 Eosinophils % 5 % 11/30/16 05:51 Basophils % 1 % 11/30/16 05:51 Neutrophils # 5.2 k/uL (1.3-7.7) 11/30/16 05:51 Lymphocytes # 1.1 k/uL (1.0-4.8) 11/30/16 05:51 Monocytes # 0.8 k/uL (0-1.0) 11/30/16 05:51 Eosinophils # 0.4 k/uL (0-0.7) 11/30/16 05:51 Basophils # 0.0 k/uL (0-0.2) 11/30/16 05:51 Hypochromasia Slight 11/30/16 05:51 PT 11.1 sec (9.0-12.0) 11/27/16 04:46 INR 1.1 (<1.1) 11/27/16 04:46 Sodium 131 mmol/L (137-145) L 12/01/16 06:37 Potassium 4.1 mmol/L (3.5-5.1) 12/01/16 06:37 Chloride 101 mmol/L (98-107) 12/01/16 06:37 Carbon Dioxide 19 mmol/L (22-30) L 12/01/16 06:37 Anion Gap 11 mmol/L 12/01/16 06:37 BUN 41 mg/dL (7-17) H 12/01/16 06:37 Creatinine 2.94 mg/dL (0.52-1.04) H 12/01/16 06:37 Est GFR (MDRD) Af Amer 19 (>60 ml/min/1.73 sqM) 12/01/16 06:37 Est GFR (MDRD) Non-Af 16 (>60 ml/min/1.73 sqM) 12/01/16 06:37 Glucose 49 mg/dL (74-99) L* 12/01/16 06:37 POC Glucose (mg/dL) 351 mg/dL (75-99) H 12/01/16 21:21 POC Glu Developer Evangelist ID Claudia Dixon 12/01/16 21:[address] Glu mg/dL 154 mg/dL 11/27/16 04:46 Hemoglobin A1c 7.0 % (4.2-6.1) H 11/27/16 04:46 Osmolality 275 mosm/kg (280-301) L 11/29/16 06:12 Calcium 9.3 mg/dL (8.4-10.2) 12/01/16 06:37 Phosphorus 4.8 mg/dL (2.5-4.5) H 11/27/16 04:46 Magnesium 1.7 mg/dL (1.6-2.3) 11/27/16 04:46 Iron 42 ug/dL (37-170) 11/24/16 07:48 TIBC 238 ug/dL (265-497) L 11/24/16 07:48 % Saturation 17.6 % (20-50) L 11/24/16 07:48 Ferritin 168 ng/mL (11-264) 11/24/16 07:48 Total Bilirubin 0.8 mg/dL (0.2-1.3) 11/30/16 05:51 AST 16 U/L (14-36) 11/30/16 05:51 ALT 33 U/L (9-52) 11/30/16 05:51 Alkaline Phosphatase 67 U/L (38-126) 11/30/16 05:51 Total Protein 5.1 g/dL (6.3-8.2) L 11/30/16 05:51 Albumin 2.7 g/dL (3.5-5.0) L 11/30/16 05:51 Urine Color Yellow 11/28/16 09:55 Urine Appearance Clear (Clear) 11/28/16 09:55 Urine pH 5.5 (5.0-8.0) 11/28/16 09:55 Ur Specific [place] 1.010 (1.001-1.035) 11/28/16 09:55 Urine Protein 2+ (Negative) H 11/28/16 09:55 Urine Glucose (UA) Negative (Negative) 11/28/16 09:55 Urine Ketones Negative (Negative) 11/28/16 09:55 Urine Blood Negative (Negative) 11/28/16 09:55 Urine Nitrate Negative (Negative) 11/28/16 09:55 Urine Bilirubin Negative (Negative) 11/28/16 09:55 Urine Urobilinogen <2.0 mg/dL (<2.0) 11/28/16 09:55 Ur Leukocyte Esterase Negative (Negative) 11/28/16 09:55 Urine WBC 1 /hpf (0-5) 11/28/16 09:55 Urine Mucus Rare /hpf (None) H 11/28/16 09:55 Urine Osmolality 255 mosm/kg (50-1400) 11/29/16 11:26 Ur Random Sodium <5 mmol/L (30-90) L 11/29/16 11:26 Ur Random Potassium 23.4 mmol/L 11/29/16 11:26 Blood Type A Positive 11/25/16 12:02 Blood Type Confirm A Positive 11/24/16 20:03 Blood Type Recheck CABO Indicated 11/25/16 12:02 Antibody Screen NEGATIVE 11/25/16 12:02 Crossmatch See Detail 11/25/16 12:02 Spec Expiration Date 11/28/2016 - 230111/25/16 12:02 Microbiology 11/28/16 10:03 Blood Blood Culture - Preliminary No Growth after 72 hours 11/28/16 08:53 Blood Blood Culture - Preliminary No Growth after 72 hours 11/28/16 09:55 Urine,Catheterized Urine Culture - Final Assessment and Plan (1) Fever Narrative/Plan: 66-year-old male presents to Hospital after her myocardial infarction earlier this year. She presented for her cardiac intervention and stenting was performed to the LAD and circumflex. She been doing well but was having some difficulty with her right groin. In that she developed a temperature 101.2. She has been seen by vascular surgery and repair of her pseudoaneurysms occurred. As evidence of some fever 101.2 erythema and tenderness to the site. With this is concerned infection at that area. She has a known history of vancomycin ALLERGY. With this Ceftaroline 400 mg IV piggyback every 12 hours as utilized. She give coverage for staph including MRSA as well as some routine gram-negative organisms such as E. coli that are in the groin. There is no drainage at this time for culture. Blood cultures are in process. And are negative so far She is symptomatically stable. With her ALLERGIES since she is improving and getting ready for discharge to home ulceration to doxycycline 100 mg twice per day can be utilized She is feeling better except for shortness of breath which has been improving. Does have a history of renal transplantation. Her creatinine is up from her baseline of 1.6, 2.94 today. She is monitored closely from nephrology. Receiving some diuresis for her significant volume overload. Rosario is in place to measure urinary output. Status: Acute (2) Pseudoaneurysm of right femoral artery Status: Acute (3) Cellulitis of right thigh Status: Acute
[2016-12-02 06:21] LABS: Glucose,Whole Blood 280 mg/dL (75-99)
[2016-12-02] MEDS: FERROUS SULFATE 325 MG TAB PO SCH ×2 (06:31→18:07)
[2016-12-02 06:34] LABS: CH 29.5; CHCM 31.5; HCT 24.1 % (34.0-46.0); HDW 2.81; HGB 7.4 gm/dL (11.4-16.0); Hypochromasia Slight; MCH 28.9 pg (25.0-35.0); MCHC 30.7 g/dL (31.0-37.0); MCV 94.1 fL (80.0-100.0); Mean Platelet Volume 6.7; RBC 2.57 m/uL (3.80-5.40); RDW 14.5 % (11.5-15.5); WBC 7.7 k/uL (3.8-10.6)
[2016-12-02] MEDS: INSULIN LISPRO SQ SCH ×4 (06:42→22:14)
[2016-12-02 06:55] LABS: Calcium 8.9 mg/dL (8.4-10.2); Potassium 4.2 mmol/L (3.5-5.1)
[2016-12-02] MEDS: LACTULOSE 20 GM/30 ML CUP PO SCH ×3 (08:09→22:11)
[2016-12-02] MEDS: ASPIRIN 81 MG CHEW PO SCH (08:10)
[2016-12-02] MEDS: ATENOLOL 50 MG TAB PO SCH (08:10)
[2016-12-02] MEDS: CLOPIDOGREL 75 MG TAB PO SCH (08:10)
[2016-12-02] MEDS: amLODIPine 5 MG TAB PO SCH (08:10)
[2016-12-02] MEDS: TAMSULOSIN 0.4 MG CAP.ER.24H PO SCH (08:11)
[2016-12-02] MEDS: hydrALAZINE HCL 50 MG TAB PO SCH ×3 (08:11→22:11)
[2016-12-02] MEDS: TACROLIMUS 1 MG CAP PO SCH ×2 (08:11→22:11)
[2016-12-02] MEDS: ATORVASTATIN 80 MG TAB PO SCH (08:11)
[2016-12-02] MEDS: RANITIDINE SYRUP 150 MG/10 ML CUP PO SCH (08:12)
[2016-12-02] MEDS: predniSONE 5 MG TAB PO SCH (08:12)
[2016-12-02] MEDS: MYCOPHENOLATE MOFETIL 250 MG CAP PO SCH ×2 (08:12→22:10)
[2016-12-02] MEDS: SODIUM BICARBONATE TAB 650 MG TAB PO SCH ×2 (08:13→22:10)
[2016-12-02] MEDS: LEVALBUTEROL NEB 1.25 MG/3 ML AMP INHALATION SCH ×4 (08:14→20:19)
[2016-12-02] MEDS: INSULIN GLARGINE 100 UNIT/ML 10 ML VIAL SQ SCH (08:16)
[2016-12-02 11:57] LABS: Glucose,Whole Blood 262 mg/dL (75-99)
--- NOTE | 2016-12-02 12:23 | P.PN ---
Subjective Principal diagnosis: Circumflex stent This is a pleasant 66-year-old female who was admitted to the hospital , underwent angioplasty, subsequently developed a pseudoaneurysm, requiring thrombin injection. Patient was in the intensive care unit over the weekend, now being followed on the telemetry unit. She does not have any fever or chills. White blood cell count is normal. Overall feeling much better today. She was up with physical therapy today, sitting up in the chair at the time of my examination. Rosario catheter in place at this time. Creatinine 2.7 today. Objective - Vital Signs Vital signs: Vital Signs Temp 97.0 F L 12/02/16 08:00 Pulse 74 12/02/16 08:26 Resp 18 12/02/16 08:00 BP 123/57 12/02/16 08:00 Pulse Ox 94 L 12/02/16 08:00 Intake & Output 12/01/16 12/02/16 12/02/16 18:59 06:59 18:59 Intake Total 250 236 Output Total 1000 950 Balance -750 -950 236 Weight 112 kg 104.8 kg Intake: Intake, IV Titration 250 Amount Ceftaroline Fosamil 300 250 mg In Sodium Chloride 0.9 % 250 ml @ 250 mls/hr IVPB Q12HR@0000,1200 [facility] Rx#:[id number] Oral 236 Output: Urine 1000 950 Straight 1000 950 Other: Voiding Method Indwelling Catheter Indwelling Catheter Indwelling Catheter # Voids 0 - Exam PHYSICAL EXAMINATION: HEENT: Head is atraumatic, normocephalic. Pupils equal, round. Neck is supple. There is no elevated jugular venous pressure. HEART EXAMINATION: Heart S1, S2 normal. No murmur or gallop heard. CHEST EXAMINATION: Circumflex clear with diminished air entry to bilateral bases ABDOMEN: Soft, obese, nontender. Bowel sounds are heard. No organomegaly noted. EXTREMITIES:[ 2+ peripheral pulses with large amount of ecchymosis from the groin down to the knee, significant tenderness. NEUROLOGIC patient is awake, alert and oriented -3. . - Labs CBC & Chem 7: 12/02/16 05:55 12/02/16 05:55 Labs: Abnormal Lab Results - Last 24 Hours (Table) 12/01/16 12/01/16 12/02/16 Range/Units 16:43 21:21 05:55 RBC 2.57 L (3.80-5.40) m/uL Hgb 7.4 L (11.4-16.0) gm/dL Hct 24.1 L (34.0-46.0) % MCHC 30.7 L (31.0-37.0) g/dL Sodium (137-145) mmol/L Carbon Dioxide (22-30) mmol/L BUN (7-17) mg/dL Creatinine (0.52-1.04) mg/dL Glucose (74-99) mg/dL POC Glucose (mg/dL) 229 H 351 H (75-99) mg/dL 12/02/16 12/02/16 12/02/16 Range/Units 05:55 06:16 11:55 RBC (3.80-5.40) m/uL Hgb (11.4-16.0) gm/dL Hct (34.0-46.0) % MCHC (31.0-37.0) g/dL Sodium 130 L (137-145) mmol/L Carbon Dioxide 16 L (22-30) mmol/L BUN 42 H (7-17) mg/dL Creatinine 2.79 H (0.52-1.04) mg/dL Glucose 241 H (74-99) mg/dL POC Glucose (mg/dL) 280 H 262 H (75-99) mg/dL Microbiology - Last 24 Hours (Table) 11/28/16 10:03 Blood Culture - Preliminary Blood No Growth after 96 hours 11/28/16 08:53 Blood Culture - Preliminary Blood No Growth after 96 hours Assessment and Plan (1) Presence of stent in LAD coronary artery Status: Acute (2) Presence of stent in left circumflex coronary artery Status: Acute (3) Femoral artery pseudoaneurysm complicating cardiac catheterization Status: Acute (4) Renal insufficiency Status: Acute (5) Hx of kidney transplant Status: Acute (6) Diabetes Status: Acute (7) HTN (hypertension) Status: Acute (8) Hyperlipemia Status: Acute (9) Anemia Status: Acute Plan: From cardiology's perspective, we'll recommend to continue the patient on her current medications. Once she is discharged from the hospital she will follow- up with Dr. Menendez in the office. DNP note has been reviewed, I agree with a documented findings and plan of care. Patient was seen and examined.
[2016-12-02] MEDS: CHOLECALCIFEROL 1,000 UNIT TAB PO SCH (12:27)
[2016-12-02] MEDS: CEFTAROLINE FOSAMIL 300 MG in SODIUM CHLORIDE 0.9% 250 ML IVPB SCH (13:33)
--- NOTE | 2016-12-02 15:08 | PN ---
Patient is seen for followup for acute kidney injury on top of chronic kidney disease in a patient with kidney transplant. Currently patient is sitting out of bed, on a bedside chair. She appears to be grossly volume overloaded with facial swelling. She states her breathing is slightly better. Patient is not maintained on a regular dose of Lasix. She did get a dose yesterday of 60 mg IV push. Urine output is good. Serum creatinine today is slightly lower at 2.79 from 2.94 yesterday. On examination, blood pressure is 116/58, heart rate of 74 per minute. Patient is afebrile. Examination of the heart S1 and S2. Examination of the lungs, bilateral breath sounds are heard. Decreased breath sounds in the bases with basal crackles bilaterally. Abdomen is soft, distended. Examination of lower extremities shows edema 2+ bilaterally. Legs are also wrapped. CHARGE ENTRY CLERK exam is grossly intact. The right groin hematoma is not examined at this time. Labs show sodium 130, potassium 4.2, CO2 of 16, BUN 42, serum creatinine 2.79. Hemoglobin at 7.4 g/dL. ASSESSMENT: 1. Acute kidney injury, acute tubular necrosis, currently slightly improved. Patient is nonoliguric. She has an indwelling Rosario catheter with good urine output. I will maintain patient on Lasix as she remains grossly fluid-overloaded. 2. Chronic kidney disease with baseline creatinine around 1.6 mg/dL, NKF stage III. 3. Status post living unrelated renal allograft at [facility] in 2004. 4. Pseudoaneurysm in the right femoral artery at the site of cardiac catheterization with injection of thrombin and evacuation of hematoma. 5. Hypervolemic hyponatremia. 6. Metabolic acidosis secondary to renal failure. 7. Urine retention, currently with indwelling Rosario catheter. 8. Iron deficiency, status post IV iron. 9. Anemia with no active bleeding noted currently. PLAN: Continue with Lasix. Discontinue Norvasc as blood pressure is on the lower side. This will help with renal perfusion as well with slightly higher blood pressure. Continue with the sodium bicarb. Repeat labs in a.m. Monitor CBC for possible need for transfusion of packed RBCs.
--- NOTE | 2016-12-02 16:08 | P.PN ---
Subjective 66-year-old female one of my office patient of known for long time was hospitalized in November 05 of November 10, 2016 for acute myocardial infarction with acute coronary syndrome ended up going for angiogram showed significant stenosis in the LAD and circumflex. Patient kidney function had declined slightly ended up going home after being hydrated and watch her kidney function was seen in the office and see Dr. Ahmadi and patient brought to the hospital on 11/23/2016 for an angioplasty, procedure was done successfully and patient is resting comfortably with no complaint, nephrology consultation was requested and BUN/creatinine to be done an daily basis for the next 2 days. Patient will be admitted for 48 hours. 11/25: Hemoglobin 7.1, BUN 36 and creatinine 1.9. She is status post PTCA and stenting of a complex torturous mid circumflex coronary artery. Nephrology is following. She is continued on Mucomyst and scheduled for IV Ferrlecit 3 days. Patient has developed a right common femoral hematoma and pseudoaneurysm. Dr. Ybarra has evaluated the patient and she is a candidate for thrombin injection of the right femoral pseudoaneurysm. 11/26: Hemoglobin 6.5, BUN 41 and creatinine 2.26. She is continued on Ferrlecit and scheduled for transfusion 1 unit packed RBCs. IV fluids at 50 mL per hour. Patient will complete Mucomyst today. Repeat Ultrasound of the groin today. Bladder scan as needed. 11/27: Yesterday patient underwent repair of perforation of a right profunda femoris artery and evacuation of right groin hematoma with Dr. Ybarra and was subsequently admitted to the ICU. She has a Rosario catheter in place and urine output has been adequate. Rosario will be discontinued this morning. She states she has much decreased pain to the right groin area. She denies any chest pain , shortness of breath. PT is working with her today. Patient is receiving her third dose of Ferrlecit. She has completed her course of Mucomyst. IV fluids at 50 mL per hour. Repeat BUN 40 and creatinine 2.3. Repeat chest x-ray shows borderline cardiomegaly and interstitial prominence which may be chronic. Correlate to exclude mild CHF. 11/28: Patient states that the groin site remains better in regards to pain. Site is warm to the touch. She did have a temperature of 101.2 this morning blood cultures, urinalysis urine culture and chest x-ray have been ordered. Patient does not have a cough or sputum production. She is complaining of feeling achy all over. She has minimal urine output Rosario was removed last night. Morning blood sugar was 95 and patient is on insulin pump. BUN 40 with creatinine 2.7 and hemoglobin 8.4. Infectious disease consult added. Patient is complaining of sore throat for which Cepacol lozenges added. 11/29: Patient is more comfortable able to ambulate out of bed with help her hemoglobin dropped down slightly but she is feeling better she was transfer out of the intensive care unit yesterday. No need for blood transfusion yet but hemoglobin is below 8 we'll wait till tomorrow repeat another CBC if it remain in the mid 7 transfusion be done. Expectation for discharge hopefully over the next 48 hours creatinine has plateau over the last 2 days with no significant declining kidney function at this point 11/30: Ultrasound venous Doppler duplex of the right lower extremity is negative for DVT. Patient complains of nausea this morning for which Zofran has been added. She was given Lasix 60 mg IV 1. She states her breathing status is okay. Repeat BUN 40 and creatinine 2.8, potassium 4.1. Hemoglobin 7.8. She is currently on Ceftaroline and followed by Dr. Rendon. 12/01: BUN today is [address] Rendon as recommended most likely doxycycline at the time of discharge.she is status post Lasix 1 dose today. She is on fluid restriction.she hasn't some problem with urinary retention for which she was straight cathed.nephrology has started Flomax. 12/02: BUN 42 and creatinine 2.79. Hemoglobin 7.4. Fluid balance is -950. Weight is same from yesterday. She states she feels puffy. No lasix today. Objective - Vital Signs Vital signs: Vital Signs Temp 98.4 F 12/02/16 00:00 Pulse 74 12/02/16 08:26 Resp 18 12/02/16 04:00 BP 130/58 12/02/16 04:00 Pulse Ox 93 L 12/02/16 04:00 Intake & Output 12/01/16 12/02/16 12/02/16 18:59 06:59 18:59 Intake Total 250 Output Total 1000 950 Balance -750 -950 Weight 112 kg Intake: Intake, IV Titration 250 Amount Ceftaroline Fosamil 300 250 mg In Sodium Chloride 0.9 % 250 ml @ 250 mls/hr IVPB Q12HR@0000,1200 [facility] Rx#:[id number] Output: Urine 1000 950 Straight 1000 950 Other: Voiding Method Indwelling Catheter Indwelling Catheter # Voids 0 - Exam General appearance: no average body habitus, cooperative, no disheveled, no mild distress, no morbidly obese, no acute distress, no obese, no severe distress, no thin - EENT Eyes: no abnormal pupil, no anicteric sclerae, no disc margins sharp, no edentulous, no EOMI, no PERRLA, no fundus normal, no photophobia, no dentition normal, no poor dentition, no ptosis, no scleral icterus, normal appearance ENT: no hard of hearing, no hearing grossly normal, no NA/AT, normal oropharynx , no other, no pharyngeal erythema, no thrush, no tonsillar exudates, no tonsillar swelling Ears: bilateral: normal - Neck Neck: no lymphadenopathy, normal ROM, no other, no rigidity, no stridor, no thyromegaly Carotids: bilateral: upstroke normal Thyroid: bilateral: normal size - Respiratory Respiratory: bilateral: CTA, diminished - Cardiovascular Rhythm: regular Heart sounds: normal: S1, S2 Abnormal Heart Sounds: systolic murmur - Gastrointestinal General gastrointestinal: no absent bowel sounds, decreased bowel sounds, no distended, no hepatomegaly, no hyperactive bowel sounds, normal bowel sounds, no organomegaly, no rigid, no scaphoid, soft, no splenomegaly, no tenderness, no umbilical hernia, no ventral hernia - Integumentary Integumentary: Large mass in the right groin, less tender, no cyanotic, no decreased turgor, no flushed, no jaundiced, normal, no normal turgor, pale, rash , no ulcer - Neurologic Neurologic: CNII-XII intact - Musculoskeletal Musculoskeletal: gait normal, generalized weakness, strength equal bilaterally, no right sided weakness, no left sided weakness - Psychiatric Psychiatric: A&O x's 3, appropriate affect, no intact judgment & insight - Labs CBC & Chem 7: 12/02/16 05:55 12/02/16 05:55 Labs: Abnormal Lab Results - Last 24 Hours (Table) 0112/01/16 12/01/16 Range/Units 12:06 16:43 21:21 RBC (3.80-5.40) m/uL Hgb (11.4-16.0) gm/dL Hct (34.0-46.0) % MCHC (31.0-37.0) g/dL Sodium (137-145) mmol/L Carbon Dioxide (22-30) mmol/L BUN (7-17) mg/dL Creatinine (0.52-1.04) mg/dL Glucose (74-99) mg/dL POC Glucose (mg/dL) 173 H 229 H 351 H (75-99) mg/dL 12/02/16 12/02/16 12/02/16 Range/Units 05:55 05:55 06:16 RBC 2.57 L (3.80-5.40) m/uL Hgb 7.4 L (11.4-16.0) gm/dL Hct 24.1 L (34.0-46.0) % MCHC 30.7 L (31.0-37.0) g/dL Sodium 130 L (137-145) mmol/L Carbon Dioxide 16 L (22-30) mmol/L BUN 42 H (7-17) mg/dL Creatinine 2.79 H (0.52-1.04) mg/dL Glucose 241 H (74-99) mg/dL POC Glucose (mg/dL) 280 H (75-99) mg/dL Microbiology - Last 24 Hours (Table) 11/28/16 10:03 Blood Culture - Preliminary Blood No Growth after 72 hours 11/28/16 08:53 Blood Culture - Preliminary Blood No Growth after 72 hours Assessment and Plan Plan: 1 CAD: With multiple coronary artery disease patent lesion in the RCA with stent still open, had 2 more lesion 1 in the LAD and one in the circumflex which Dr. Ahmadi has done an angioplasty and stent placement successfully. 2. Right common femoral hematoma and pseudoaneurysm with possible early sepsis and wound infection developing. Dr. Ybarra on consult. Plan for thrombin injection of the right femoral pseudoaneurysm. Status post repair of pseudoaneurysm right groin. Blood cultures, urine culture, urinalysis, chest x- ray and ID consult added. 3. post MA with acute coronary syndrome: Patient has done well since her last admission. 4. Acute kidney injury on chronic kidney disease stage III post kidney transplant, patient is still seen nephrology regular basis which will be followed daily with repeat BUN/creatinine. 5. diabetes mellitus type 2: Patient is on insulin pump continue insulin pump watch her Accu-Chek with sliding scales coverage. 6. hyperlipidemia: On Lipitor 20 mg daily. 7. GERD: Patient is on Zantac or H2 jai and doing well. 8. post renal transplant: Patient to continue CellCept 750 mg orally twice a day along with Prograf 2 mg twice a day and prednisone 5 mg daily. 9. hypertension: Doing very well on current medication resume atenolol 100 mg daily. 10. Urinary retention for which patient required straight cath. Flomax added. CODE STATUS: Full code. Discharge plan: Return home Impression and plan of care have been directed as dictated by the signing physician. Lainey Cameron nurse practitioner acting as scribe for signing physician. Time with Patient: Greater than 30
[2016-12-02 17:38] LABS: Glucose,Whole Blood 165 mg/dL (75-99)
[2016-12-02 20:23] LABS: Glucose,Whole Blood 133 mg/dL (75-99)
[2016-12-02] MEDS: FUROSEMIDE 10 MG/ML 4 ML VIAL IV SCH (22:14)
--- NOTE | 2016-12-02 23:04 | P.PN ---
Subjective Principal diagnosis: Coronary artery disease 66-year-old female who has a known history of coronary artery disease was hospitalized in early November 2016 with an acute myocardial infarction. Evidence of Stenosis of Her Left Anterior Descending Artery in Her Circumflex. With a History of Renal Transplantation It Was Noted That Her Renal Function Had Worsened a Bit. Because She Was Stable Was Plan for Readmission for Her Angioplasty. She then Was Readmitted and Angioplasty Occurred on 11/23/2016. She Is Doing Modestly Well However Developed Difficulty with Pain to Her Right Groin. There Is Evidence of a Pseudoaneurysm. She's Been Taking to the Operating Room and the aneurysm has Been Repaired. She then started Having Difficulties with Increasing Tenderness Erythema and Some Scant Serous Drainage. Some Scant Bloody Drainage Inferior to the Incision from Her Prior Dressing. She then Developed a Temperature 101.2 which fortunately has resolved Feeling much better today. Is still having difficulty with volume overload but her creatinine is improved Objective - Vital Signs Vital signs: Vital Signs Temp 97.1 F L 12/02/16 20:00 Pulse 76 12/02/16 20:31 Resp 22 12/02/16 20:00 BP 140/64 12/02/16 20:00 Pulse Ox 96 12/02/16 20:00 Intake & Output 12/02/16 12/02/16 12/03/16 06:59 18:59 06:59 Intake Total 236 Output Total 950 201 Balance -950 236 -201 Weight 112 kg 104.8 kg Intake: Oral 236 Output: Urine 950 200 Straight 950 Stool 1 Other: Voiding Method Indwelling Catheter Indwelling Catheter Indwelling Catheter # Voids 0 1 - Exam pleasant 66 -year-old woman who issitting up in the chair. The exertion made her feel somewhat HEENT: Anicteric conjunctiva are pink and moist nasal mucosa grossly intact without significant lesions, there is no thrush. Neck: The neck is supple without significant lymphadenopathy or thyromegaly. Lungs: Symmetrical air entry. Bibasilar crackles are heard. No kurt bronchial sounds. Heart: Irregular with an audible S1 and S2 soft S4 no murmur click or rub PMI was nondisplaced Abdomen: obese,Positive bowel sounds soft and nontender without palpable masses or organomegaly. There was no guarding or rebound. Extremities: The upper extremities have excellent pulses they are symmetric, no significant petechiae or telangiectasia. No splinter hemorrhages were noted. Lower extremities evidence of generalized edema. Left lower extremities hasbeen abnormalities. Neurologic she was as the recent surgical intervention to the right groin. Surgical incision is intact. There is a scant amount of drainage on the dressing. Nothing is expressible. She is a small tape injury was some bleeding it's distal on the thigh. There is some mild surrounding erythema. It is somewhat tender to touch. But not exquisitely so. No odor is noted. There is no ascending erythema that is noted there is minimal area of discoloration to the staple line is somewhat hyperemic with concerns of possible early superficial skin necrosis Neuro: Awake alert oriented to person place and time. There are no acute new gross focal sensory motor deficits. - Labs CBC & Chem 7: 12/02/16 05:55 12/02/16 05:55 Labs: Abnormal Lab Results - Last 24 Hours (Table) 12/02/16 12/02/16 12/02/16 Range/Units 05:55 05:55 06:16 RBC 2.57 L (3.80-5.40) m/uL Hgb 7.4 L (11.4-16.0) gm/dL Hct 24.1 L (34.0-46.0) % MCHC 30.7 L (31.0-37.0) g/dL Sodium 130 L (137-145) mmol/L Carbon Dioxide 16 L (22-30) mmol/L BUN 42 H (7-17) mg/dL Creatinine 2.79 H (0.52-1.04) mg/dL Glucose 241 H (74-99) mg/dL POC Glucose (mg/dL) 280 H (75-99) mg/dL 12/02/16 12/02/16 12/02/16 Range/Units 11:55 17:19 20:22 RBC (3.80-5.40) m/uL Hgb (11.4-16.0) gm/dL Hct (34.0-46.0) % MCHC (31.0-37.0) g/dL Sodium (137-145) mmol/L Carbon Dioxide (22-30) mmol/L BUN (7-17) mg/dL Creatinine (0.52-1.04) mg/dL Glucose (74-99) mg/dL POC Glucose (mg/dL) 262 H 165 H 133 H (75-99) mg/dL Microbiology - Last 24 Hours (Table) 11/28/16 10:03 Blood Culture - Preliminary Blood No Growth after 96 hours 11/28/16 08:53 Blood Culture - Preliminary Blood No Growth after 96 hours Laboratory Results WBC 7.7 k/uL (3.8-10.6) 12/02/16 05:55 RBC 2.57 m/uL (3.80-5.40) L 12/02/16 05:55 Hgb 7.4 gm/dL (11.4-16.0) L 12/02/16 05:55 Hct 24.1 % (34.0-46.0) L 12/02/16 05:55 MCV 94.1 fL (80.0-100.0) 12/02/16 05:55 MCH 28.9 pg (25.0-35.0) 12/02/16 05:55 MCHC 30.7 g/dL (31.0-37.0) L 12/02/16 05:55 RDW 14.5 % (11.5-15.5) 12/02/16 05:55 Plt Count 331 k/uL (150-450) 12/02/16 05:55 Neutrophils % 66 % 11/30/16 05:51 Lymphocytes % 14 % 11/30/16 05:51 Monocytes % 10 % 11/30/16 05:51 Eosinophils % 5 % 11/30/16 05:51 Basophils % 1 % 11/30/16 05:51 Neutrophils # 5.2 k/uL (1.3-7.7) 11/30/16 05:51 Lymphocytes # 1.1 k/uL (1.0-4.8) 11/30/16 05:51 Monocytes # 0.8 k/uL (0-1.0) 11/30/16 05:51 Eosinophils # 0.4 k/uL (0-0.7) 11/30/16 05:51 Basophils # 0.0 k/uL (0-0.2) 11/30/16 05:51 Hypochromasia Slight 12/02/16 05:55 PT 11.1 sec (9.0-12.0) 11/27/16 04:46 INR 1.1 (<1.1) 11/27/16 04:46 Sodium 130 mmol/L (137-145) L 12/02/16 05:55 Potassium 4.2 mmol/L (3.5-5.1) 12/02/16 05:55 Chloride 100 mmol/L (98-107) 12/02/16 05:55 Carbon Dioxide 16 mmol/L (22-30) L 12/02/16 05:55 Anion Gap 14 mmol/L 12/02/16 05:55 BUN 42 mg/dL (7-17) H 12/02/16 05:55 Creatinine 2.79 mg/dL (0.52-1.04) H 12/02/16 05:55 Est GFR (MDRD) Af Amer 21 (>60 ml/min/1.73 sqM) 12/02/16 05:55 Est GFR (MDRD) Non-Af 17 (>60 ml/min/1.73 sqM) 12/02/16 05:55 Glucose 241 mg/dL (74-99) H 12/02/16 05:55 POC Glucose (mg/dL) 133 mg/dL (75-99) H 12/02/16 20:22 POC Glu [employer] ID Divina Walton 12/02/16 20:[address] Glu mg/dL 154 mg/dL 11/27/16 04:46 Hemoglobin A1c 7.0 % (4.2-6.1) H 11/27/16 04:46 Osmolality 275 mosm/kg (280-301) L 11/29/16 06:12 Calcium 8.9 mg/dL (8.4-10.2) 12/02/16 05:55 Phosphorus 4.8 mg/dL (2.5-4.5) H 11/27/16 04:46 Magnesium 1.7 mg/dL (1.6-2.3) 11/27/16 04:46 Iron 42 ug/dL (37-170) 11/24/16 07:48 TIBC 238 ug/dL (265-497) L 11/24/16 07:48 % Saturation 17.6 % (20-50) L 11/24/16 07:48 Ferritin 168 ng/mL (11-264) 11/24/16 07:48 Total Bilirubin 0.8 mg/dL (0.2-1.3) 11/30/16 05:51 AST 16 U/L (14-36) 11/30/16 05:51 ALT 33 U/L (9-52) 11/30/16 05:51 Alkaline Phosphatase 67 U/L (38-126) 11/30/16 05:51 Total Protein 5.1 g/dL (6.3-8.2) L 11/30/16 05:51 Albumin 2.7 g/dL (3.5-5.0) L 11/30/16 05:51 Urine Color Yellow 11/28/16 09:55 Urine Appearance Clear (Clear) 11/28/16 09:55 Urine pH 5.5 (5.0-8.0) 11/28/16 09:55 Ur Specific [place] 1.010 (1.001-1.035) 11/28/16 09:55 Urine Protein 2+ (Negative) H 11/28/16 09:55 Urine Glucose (UA) Negative (Negative) 11/28/16 09:55 Urine Ketones Negative (Negative) 11/28/16 09:55 Urine Blood Negative (Negative) 11/28/16 09:55 Urine Nitrate Negative (Negative) 11/28/16 09:55 Urine Bilirubin Negative (Negative) 11/28/16 09:55 Urine Urobilinogen <2.0 mg/dL (<2.0) 11/28/16 09:55 Ur Leukocyte Esterase Negative (Negative) 11/28/16 09:55 Urine WBC 1 /hpf (0-5) 11/28/16 09:55 Urine Mucus Rare /hpf (None) H 11/28/16 09:55 Urine Osmolality 255 mosm/kg (50-1400) 11/29/16 11:26 Ur Random Sodium <5 mmol/L (30-90) L 11/29/16 11:26 Ur Random Potassium 23.4 mmol/L 11/29/16 11:26 Blood Type A Positive 11/25/16 12:02 Blood Type Confirm A Positive 11/24/16 20:03 Blood Type Recheck CABO Indicated 11/25/16 12:02 Antibody Screen NEGATIVE 11/25/16 12:02 Crossmatch See Detail 11/25/16 12:02 Spec Expiration Date 11/28/2016230111/25/16 12:02 Microbiology 11/28/16 10:03 Blood Blood Culture - Preliminary No Growth after 96 hours 11/28/16 08:53 Blood Blood Culture - Preliminary No Growth after 96 hours 11/28/16 09:55 Urine,Catheterized Urine Culture - Final Assessment and Plan (1) Fever Narrative/Plan: 66-year-old male presents to Hospital after her myocardial infarction earlier this year. She presented for her cardiac intervention and stenting was performed to the LAD and circumflex. She been doing well but was having some difficulty with her right groin. In that she developed a temperature 101.2. She has been seen by vascular surgery and repair of her pseudoaneurysms occurred. As evidence of some fever 101.2 erythema and tenderness to the site. With this is concerned infection at that area. She has a known history of vancomycin ALLERGY. With this Ceftaroline 400 mg IV piggyback every 12 hours as utilized. She give coverage for staph including MRSA as well as some routine gram-negative organisms such as E. coli that are in the groin. There is no drainage at this time for culture. Blood cultures are in process. And are negative so far She is symptomatically stable. With her ALLERGIES since she is improving and getting ready for discharge to home ulceration to doxycycline 100 mg twice per day can be utilized She is feeling better except for shortness of breath which has been improving. Does have a history of renal transplantation. Her creatinine is up from her baseline of 1.6, 2.79 today. She is monitored closely from nephrology. Receiving some diuresis for her significant volume overload. Rosario is in place to measure urinary output. Status: Acute (2) Pseudoaneurysm of right femoral artery Status: Acute (3) Cellulitis of right thigh Status: Acute
[2016-12-03] MEDS: CEFTAROLINE FOSAMIL 300 MG in SODIUM CHLORIDE 0.9% 250 ML IVPB SCH ×2 (00:44→11:41)
[2016-12-03] MEDS: BENZOCAINE/MENTHOL LOZENG 1 EACH LOZENGE MUCOUS MEM PRN (02:14)
[2016-12-03 02:37] LABS: Glucose,Whole Blood 110 mg/dL (75-99)
[2016-12-03 05:58] LABS: Glucose,Whole Blood 116 mg/dL (75-99)
[2016-12-03] MEDS: FERROUS SULFATE 325 MG TAB PO SCH ×2 (06:52→17:29)
[2016-12-03 07:14] LABS: CH 29.5; CHCM 31.9; HCT 24.9 % (34.0-46.0); HDW 2.89; HGB 7.7 gm/dL (11.4-16.0); Hypochromasia Slight; MCH 28.8 pg (25.0-35.0); MCHC 30.9 g/dL (31.0-37.0); MCV 93.4 fL (80.0-100.0); Mean Platelet Volume 7.5; RBC 2.66 m/uL (3.80-5.40); RDW 14.7 % (11.5-15.5)
[2016-12-03 07:58] LABS: Calcium 9.2 mg/dL (8.4-10.2); Magnesium 1.8 mg/dL (1.6-2.3); Potassium 3.8 mmol/L (3.5-5.1)
[2016-12-03] MEDS: LEVALBUTEROL NEB 1.25 MG/3 ML AMP INHALATION SCH ×4 (08:09→20:28)
[2016-12-03] MEDS: ATORVASTATIN 80 MG TAB PO SCH (09:45)
[2016-12-03] MEDS: INSULIN LISPRO SQ SCH ×4 (09:45→22:51)
[2016-12-03] MEDS: hydrALAZINE HCL 50 MG TAB PO SCH (09:45)
[2016-12-03] MEDS: ATENOLOL 50 MG TAB PO SCH (09:45)
[2016-12-03] MEDS: FUROSEMIDE 10 MG/ML 4 ML VIAL IV SCH ×2 (09:45→22:48)
[2016-12-03] MEDS: CLOPIDOGREL 75 MG TAB PO SCH (09:45)
[2016-12-03] MEDS: ASPIRIN 81 MG CHEW PO SCH (09:45)
[2016-12-03] MEDS: INSULIN GLARGINE 100 UNIT/ML 10 ML VIAL SQ SCH (09:45)
[2016-12-03] MEDS: TAMSULOSIN 0.4 MG CAP.ER.24H PO SCH (09:45)
[2016-12-03] MEDS: LACTULOSE 20 GM/30 ML CUP PO SCH ×3 (09:45→22:00)
[2016-12-03] MEDS: MYCOPHENOLATE MOFETIL 250 MG CAP PO SCH ×2 (11:35→22:50)
[2016-12-03] MEDS: CHOLECALCIFEROL 1,000 UNIT TAB PO SCH (11:38)
[2016-12-03] MEDS: SODIUM BICARBONATE TAB 650 MG TAB PO SCH ×2 (11:39→22:50)
[2016-12-03] MEDS: TACROLIMUS 1 MG CAP PO SCH ×2 (11:39→22:51)
[2016-12-03] MEDS: predniSONE 5 MG TAB PO SCH (11:41)
[2016-12-03] MEDS: RANITIDINE SYRUP 150 MG/10 ML CUP PO SCH (11:41)
[2016-12-03 12:05] LABS: Glucose,Whole Blood 212 mg/dL (75-99)
[2016-12-03] MEDS: ONDANSETRON 4 MG/2 ML VIAL IVP PRN (12:12)
--- NOTE | 2016-12-03 14:12 | P.PN ---
Subjective Principal diagnosis: Circumflex stent This is a pleasant 66-year-old female who was admitted to the hospital , underwent angioplasty, subsequently developed a pseudoaneurysm, requiring thrombin injection. Patient was in the intensive care unit over the weekend, now being followed on the telemetry unit. She does not have any fever or chills. White blood cell count is normal. Overall feeling better every day. Continues to have Rosario catheter in place. Creatinine 2.6. Objective - Vital Signs Vital signs: Vital Signs Temp 97.0 F L 12/03/16 12:00 Pulse 73 12/03/16 12:00 Resp 22 12/03/16 12:00 BP 165/98 12/03/16 12:00 Pulse Ox 94 L 12/03/16 08:00 Intake & Output 12/02/16 12/03/16 12/03/16 18:59 06:59 18:59 Intake Total 236 550 100 Output Total 1076 1 Balance 236 -526 99 Weight 104.8 kg 102.9 kg 102.9 kg Intake: Intake, IV Titration 250 Amount Ceftaroline Fosamil 300 250 mg In Sodium Chloride 0.9 % 250 ml @ 250 mls/hr IVPB Q12HR@0000,1200 [facility] Rx#:[id number] Oral 236 300 100 Output: Urine 1075 Stool 1 1 Other: Voiding Method Indwelling Catheter Indwelling Catheter Indwelling Catheter # Voids 1 - Exam PHYSICAL EXAMINATION: HEENT: Head is atraumatic, normocephalic. Pupils equal, round. Neck is supple. There is no elevated jugular venous pressure. HEART EXAMINATION: Heart S1, S2 normal. No murmur or gallop heard. CHEST EXAMINATION: Circumflex clear with diminished air entry to bilateral bases ABDOMEN: Soft, obese, nontender. Bowel sounds are heard. No organomegaly noted. EXTREMITIES:[ 2+ peripheral pulses with large amount of ecchymosis from the groin down to the knee, significant tenderness. NEUROLOGIC patient is awake, alert and oriented -3. . - Labs CBC & Chem 7: 12/03/16 06:24 12/03/16 06:24 Labs: Abnormal Lab Results - Last 24 Hours (Table) 12/02/16 12/02/16 12/03/16 Range/Units 17:19 20:22 02:25 RBC (3.80-5.40) m/uL Hgb (11.4-16.0) gm/dL Hct (34.0-46.0) % MCHC (31.0-37.0) g/dL Sodium (137-145) mmol/L Carbon Dioxide (22-30) mmol/L BUN (7-17) mg/dL Creatinine (0.52-1.04) mg/dL Glucose (74-99) mg/dL POC Glucose (mg/dL) 165 H 133 H 110 H (75-99) mg/dL 12/03/16 12/03/16 12/03/16 Range/Units 05:57 06:24 06:24 RBC 2.66 L (3.80-5.40) m/uL Hgb 7.7 L (11.4-16.0) gm/dL Hct 24.9 L (34.0-46.0) % MCHC 30.9 L (31.0-37.0) g/dL Sodium 133 L (137-145) mmol/L Carbon Dioxide 19 L (22-30) mmol/L BUN 39 H (7-17) mg/dL Creatinine 2.62 H (0.52-1.04) mg/dL Glucose 107 H (74-99) mg/dL POC Glucose (mg/dL) 116 H (75-99) mg/dL 12/03/16 Range/Units 12:02 RBC (3.80-5.40) m/uL Hgb (11.4-16.0) gm/dL Hct (34.0-46.0) % MCHC (31.0-37.0) g/dL Sodium (137-145) mmol/L Carbon Dioxide (22-30) mmol/L BUN (7-17) mg/dL Creatinine (0.52-1.04) mg/dL Glucose (74-99) mg/dL POC Glucose (mg/dL) 212 H (75-99) mg/dL Microbiology - Last 24 Hours (Table) 11/28/16 10:03 Blood Culture - Preliminary Blood No Growth after 120 hours 11/28/16 08:53 Blood Culture - Preliminary Blood No Growth after 120 hours Assessment and Plan (1) Presence of stent in LAD coronary artery Status: Acute (2) Presence of stent in left circumflex coronary artery Status: Acute (3) Femoral artery pseudoaneurysm complicating cardiac catheterization Status: Acute (4) Renal insufficiency Status: Acute (5) Hx of kidney transplant Status: Acute (6) Diabetes Status: Acute (7) HTN (hypertension) Status: Acute (8) Hyperlipemia Status: Acute (9) Anemia Status: Acute Plan: From cardiology's perspective, we'll recommend to continue the patient on her current medications. Once she is discharged from the hospital she will follow- up with Dr. Menendez in the office. DNP note has been reviewed, I agree with a documented findings and plan of care. Patient was seen and examined.
--- NOTE | 2016-12-03 14:34 | PN ---
Patient is seen for followup for acute kidney injury as well as for chronic kidney disease. She has developed hematoma due to aneurysm at the site of cardiac catheterization in the right femoral artery. This is currently stable and improving. Patient's kidney function had also worsened with serum creatinine 2.9 mg/dL and it has been improving with creatinine down to 2.6 mg/dL. Patient's baseline creatinine is about 1.6 mg/dL. She was also volume overloaded for which she was started on Lasix 40 mg q.12 hours yesterday. Her weight is down today and she states that she feels slightly better. Systolic blood pressure had been running on the lower side and I stopped the Norvasc yesterday. Her hydralazine should also be decreased slightly as her blood pressure remains marginal. On examination today, blood pressure is 107/57, heart rate is 82 per minute. She is afebrile. Examination of the heart, S1 and S2. Lungs are diminished, bilateral breath sounds are heard. Bilateral crackles are heard. [employer] exam is grossly intact. Abdomen is soft, obese. Examination of lower extremities shows edema 3+ bilaterally. Labs show sodium 133, potassium 3.8. Hemoglobin 7.7 g/dL, magnesium 1.8. ASSESSMENT: 1. Acute kidney injury, acute tubular necrosis, currently nonoliguric with some improvement in the renal function. Will continue with the diuretics for now. Blood pressure had been on the lower side, Norvasc was discontinued. I will also decrease the hydralazine to 25 mg b.i.d. 2. Anemia with no active bleeding noted, most likely related to the hematoma at the site the pseudoaneurysm. Hemoglobin is now at 7.7 which is up from 6.5 previously on 11/26/2016. No active bleeding noted. Patient has been started on Ativan for anemia of chronic disease as well. 3. Metabolic acidosis, maintained on sodium bicarb. 4. Coronary artery disease, status post cardiac catheterization. 5. Fluid overload, continue with current dose of Lasix. PLAN: Continue Lasix 40 mg for 12 hours and decrease hydralazine to 35 mg b.i.d. Repeat labs in the a.m., continue to avoid nephrotoxic agents.
--- NOTE | 2016-12-03 15:36 | P.PN ---
Subjective 66-year-old female one of my office patient of known for long time was hospitalized in November 05 of November 10, 2016 for acute myocardial infarction with acute coronary syndrome ended up going for angiogram showed significant stenosis in the LAD and circumflex. Patient kidney function had declined slightly ended up going home after being hydrated and watch her kidney function was seen in the office and see Dr. Ahmadi and patient brought to the hospital on 11/23/2016 for an angioplasty, procedure was done successfully and patient is resting comfortably with no complaint, nephrology consultation was requested and BUN/creatinine to be done an daily basis for the next 2 days. Patient will be admitted for 48 hours. 11/25: Hemoglobin 7.1, BUN 36 and creatinine 1.9. She is status post PTCA and stenting of a complex torturous mid circumflex coronary artery. Nephrology is following. She is continued on Mucomyst and scheduled for IV Ferrlecit 3 days. Patient has developed a right common femoral hematoma and pseudoaneurysm. Dr. Ybarra has evaluated the patient and she is a candidate for thrombin injection of the right femoral pseudoaneurysm. 11/26: Hemoglobin 6.5, BUN 41 and creatinine 2.26. She is continued on Ferrlecit and scheduled for transfusion 1 unit packed RBCs. IV fluids at 50 mL per hour. Patient will complete Mucomyst today. Repeat Ultrasound of the groin today. Bladder scan as needed. 11/27: Yesterday patient underwent repair of perforation of a right profunda femoris artery and evacuation of right groin hematoma with Dr. Ybarra and was subsequently admitted to the ICU. She has a Rosario catheter in place and urine output has been adequate. Rosario will be discontinued this morning. She states she has much decreased pain to the right groin area. She denies any chest pain , shortness of breath. PT is working with her today. Patient is receiving her third dose of Ferrlecit. She has completed her course of Mucomyst. IV fluids at 50 mL per hour. Repeat BUN 40 and creatinine 2.3. Repeat chest x-ray shows borderline cardiomegaly and interstitial prominence which may be chronic. Correlate to exclude mild CHF. 11/28: Patient states that the groin site remains better in regards to pain. Site is warm to the touch. She did have a temperature of 101.2 this morning blood cultures, urinalysis urine culture and chest x-ray have been ordered. Patient does not have a cough or sputum production. She is complaining of feeling achy all over. She has minimal urine output Rosario was removed last night. Morning blood sugar was 95 and patient is on insulin pump. BUN 40 with creatinine 2.7 and hemoglobin 8.4. Infectious disease consult added. Patient is complaining of sore throat for which Cepacol lozenges added. 11/29: Patient is more comfortable able to ambulate out of bed with help her hemoglobin dropped down slightly but she is feeling better she was transfer out of the intensive care unit yesterday. No need for blood transfusion yet but hemoglobin is below 8 we'll wait till tomorrow repeat another CBC if it remain in the mid 7 transfusion be done. Expectation for discharge hopefully over the next 48 hours creatinine has plateau over the last 2 days with no significant declining kidney function at this point 11/30: Ultrasound venous Doppler duplex of the right lower extremity is negative for DVT. Patient complains of nausea this morning for which Zofran has been added. She was given Lasix 60 mg IV 1. She states her breathing status is okay. Repeat BUN 40 and creatinine 2.8, potassium 4.1. Hemoglobin 7.8. She is currently on Ceftaroline and followed by Dr. Rendon. 12/01: BUN today is [address] Rendon as recommended most likely doxycycline at the time of discharge.she is status post Lasix 1 dose today. She is on fluid restriction.she hasn't some problem with urinary retention for which she was straight cathed.nephrology has started Flomax. 12/02: BUN 42 and creatinine 2.79. Hemoglobin 7.4. Fluid balance is -950. Weight is same from yesterday. She states she feels puffy. No lasix today. 12/03: Nephrology has continue patient on IV Lasix. Norvasc discontinued as patient's blood pressure is on the low side. She is continued on sodium bicarb. Kidney function continues to improve with BUN 39 creatinine 2.62. Hemoglobin is stable at 7.7. Blood sugars running 110-163. Objective - Vital Signs Vital signs: Vital Signs Temp 98.5 F 12/03/16 08:00 Pulse 72 12/03/16 08:22 Resp 22 12/03/16 08:00 BP 107/63 12/03/16 08:00 Pulse Ox 94 L 12/03/16 08:00 Intake & Output 12/02/16 12/03/16 12/03/16 18:59 06:59 18:59 Intake Total 236 550 100 Output Total 1076 Balance 236 -526 100 Weight 104.8 kg 102.9 kg Intake: Intake, IV Titration 250 Amount Ceftaroline Fosamil 300 250 mg In Sodium Chloride 0.9 % 250 ml @ 250 mls/hr IVPB Q12HR@0000,1200 [facility] Rx#:[id number] Oral 236 300 100 Output: Urine 1075 Stool 1 Other: Voiding Method Indwelling Catheter Indwelling Catheter # Voids 1 - Exam General appearance: no average body habitus, cooperative, no disheveled, no mild distress, no morbidly obese, no acute distress, no obese, no severe distress, no thin - EENT Eyes: no abnormal pupil, no anicteric sclerae, no disc margins sharp, no edentulous, no EOMI, no PERRLA, no fundus normal, no photophobia, no dentition normal, no poor dentition, no ptosis, no scleral icterus, normal appearance ENT: no hard of hearing, no hearing grossly normal, no NA/AT, normal oropharynx , no other, no pharyngeal erythema, no thrush, no tonsillar exudates, no tonsillar swelling Ears: bilateral: normal - Neck Neck: no lymphadenopathy, normal ROM, no other, no rigidity, no stridor, no thyromegaly Carotids: bilateral: upstroke normal Thyroid: bilateral: normal size - Respiratory Respiratory: bilateral: CTA, diminished - Cardiovascular Rhythm: regular Heart sounds: normal: S1, S2 Abnormal Heart Sounds: systolic murmur - Gastrointestinal General gastrointestinal: no absent bowel sounds, decreased bowel sounds, no distended, no hepatomegaly, no hyperactive bowel sounds, normal bowel sounds, no organomegaly, no rigid, no scaphoid, soft, no splenomegaly, no tenderness, no umbilical hernia, no ventral hernia - Integumentary Integumentary: Large mass in the right groin, less tender, no cyanotic, no decreased turgor, no flushed, no jaundiced, normal, no normal turgor, pale, rash , no ulcer - Neurologic Neurologic: CNII-XII intact - Musculoskeletal Musculoskeletal: gait normal, generalized weakness, strength equal bilaterally, no right sided weakness, no left sided weakness - Psychiatric Psychiatric: A&O x's 3, appropriate affect, no intact judgment & insight - Labs CBC & Chem 7: 12/03/16 06:24 12/03/16 06:24 Labs: Abnormal Lab Results - Last 24 Hours (Table) 12/02/16 12/02/16 12/02/16 Range/Units 11:55 17:19 20:22 RBC (3.80-5.40) m/uL Hgb (11.4-16.0) gm/dL Hct (34.0-46.0) % MCHC (31.0-37.0) g/dL Sodium (137-145) mmol/L Carbon Dioxide (22-30) mmol/L BUN (7-17) mg/dL Creatinine (0.52-1.04) mg/dL Glucose (74-99) mg/dL POC Glucose (mg/dL) 262 H 165 H 133 H (75-99) mg/dL 12/03/16 12/03/16 12/03/16 Range/Units 02:25 05:57 06:24 RBC 2.66 L (3.80-5.40) m/uL Hgb 7.7 L (11.4-16.0) gm/dL Hct 24.9 L (34.0-46.0) % MCHC 30.9 L (31.0-37.0) g/dL Sodium (137-145) mmol/L Carbon Dioxide (22-30) mmol/L BUN (7-17) mg/dL Creatinine (0.52-1.04) mg/dL Glucose (74-99) mg/dL POC Glucose (mg/dL) 110 H 116 H (75-99) mg/dL 12/03/16 Range/Units 06:24 RBC (3.80-5.40) m/uL Hgb (11.4-16.0) gm/dL Hct (34.0-46.0) % MCHC (31.0-37.0) g/dL Sodium 133 L (137-145) mmol/L Carbon Dioxide 19 L (22-30) mmol/L BUN 39 H (7-17) mg/dL Creatinine 2.62 H (0.52-1.04) mg/dL Glucose 107 H (74-99) mg/dL POC Glucose (mg/dL) (75-99) mg/dL Microbiology - Last 24 Hours (Table) 11/28/16 10:03 Blood Culture - Preliminary Blood No Growth after 96 hours 11/28/16 08:53 Blood Culture - Preliminary Blood No Growth after 96 hours Assessment and Plan Plan: 1 CAD: With multiple coronary artery disease patent lesion in the RCA with stent still open, had 2 more lesion 1 in the LAD and one in the circumflex which Dr. Ahmadi has done an angioplasty and stent placement successfully. 2. Right common femoral hematoma and pseudoaneurysm with possible early sepsis and wound infection developing. Dr. Ybarra on consult. Plan for thrombin injection of the right femoral pseudoaneurysm. Status post repair of pseudoaneurysm right groin. Blood cultures, urine culture, urinalysis, chest x- ray and ID consult added. Continue Ceftaroline. 3. post VT with acute coronary syndrome: Patient has done well since her last admission. 4. Acute kidney injury on chronic kidney disease stage III post kidney transplant, patient is still seen nephrology regular basis which will be followed daily with repeat BUN/creatinine. Sodium bicarb, Lasix 40 IV every 12 hours 5. diabetes mellitus type 2: Patient is on insulin pump continue insulin pump watch her Accu-Chek with sliding scales coverage. 6. hyperlipidemia: On Lipitor 20 mg daily. 7. GERD: Patient is on Zantac or H2 jai and doing well. 8. post renal transplant: Patient to continue CellCept 750 mg orally twice a day along with Prograf 2 mg twice a day and prednisone 5 mg daily. 9. hypertension: Continue atenolol 100 mg daily. Norvasc was discontinued. 10. Urinary retention for which patient required straight cath. Flomax added. CODE STATUS: Full code. Discharge plan: Return home Impression and plan of care have been directed as dictated by the signing physician. Lainey Cameron nurse practitioner acting as scribe for signing physician. Time with Patient: Greater than 30
[2016-12-03 17:13] LABS: Glucose,Whole Blood 127 mg/dL (75-99)
[2016-12-03] MEDS: DARBEPOETIN ALFA 40 MCG/0.4 ML SYRINGE SQ SCH (17:30)
--- NOTE | 2016-12-03 20:48 | P.PN ---
Subjective Principal diagnosis: Coronary artery disease 66-year-old female who has a known history of coronary artery disease was hospitalized in early November 2016 with an acute myocardial infarction. Evidence of Stenosis of Her Left Anterior Descending Artery in Her Circumflex. With a History of Renal Transplantation It Was Noted That Her Renal Function Had Worsened a Bit. Because She Was Stable Was Plan for Readmission for Her Angioplasty. She then Was Readmitted and Angioplasty Occurred on 11/23/2016. She Is Doing Modestly Well However Developed Difficulty with Pain to Her Right Groin. There Is Evidence of a Pseudoaneurysm. She's Been Taking to the Operating Room and the aneurysm has Been Repaired. She then started Having Difficulties with Increasing Tenderness Erythema and Some Scant Serous Drainage. Some Scant Bloody Drainage Inferior to the Incision from Her Prior Dressing. She then Developed a Temperature 101.2 which fortunately has resolved Feeling much better today. Is still having difficulty with volume overload but her creatinine is improved Objective - Vital Signs Vital signs: Vital Signs Temp 97.0 F L 12/03/16 13:00 Pulse 71 12/03/16 20:39 Resp 20 12/03/16 16:00 BP 165/98 12/03/16 13:00 Pulse Ox 92 L 12/03/16 20:28 Intake & Output 12/03/16 12/03/16 12/04/16 06:59 18:59 06:59 Intake Total 550 300 200 Output Total 1076 3004 1501 Balance -627 -0552 -0581 Weight 102.9 kg 102.9 kg 102.9 kg Intake: Intake, IV Titration 250 Amount Ceftaroline Fosamil 300 250 mg In Sodium Chloride 0.9 % 250 ml @ 250 mls/hr IVPB Q12HR@0000,1200 [facility] Rx#:[id number] Oral 300 300 200 Output: Urine 1075 3000 1500 Stool 1 4 1 Other: Voiding Method Indwelling Catheter Indwelling Catheter # Voids 1 1 # Bowel Movements 2 - Exam pleasant 66 -year-old woman who issitting up in the chair. The exertion made her feel somewhat HEENT: Anicteric conjunctiva are pink and moist nasal mucosa grossly intact without significant lesions, there is no thrush. Neck: The neck is supple without significant lymphadenopathy or thyromegaly. Lungs: Symmetrical air entry. Bibasilar crackles are heard. No kurt bronchial sounds. Heart: Irregular with an audible S1 and S2 soft S4 no murmur click or rub PMI was nondisplaced Abdomen: obese,Positive bowel sounds soft and nontender without palpable masses or organomegaly. There was no guarding or rebound. Extremities: The upper extremities have excellent pulses they are symmetric, no significant petechiae or telangiectasia. No splinter hemorrhages were noted. Lower extremities evidence of generalized edema. Left lower extremities hasbeen abnormalities. Neurologic she was as the recent surgical intervention to the right groin. Surgical incision is intact. There is a scant amount of drainage on the dressing. Nothing is expressible. She is a small tape injury was some bleeding it's distal on the thigh. There is some mild surrounding erythema. It is somewhat tender to touch. But not exquisitely so. No odor is noted. There is no ascending erythema that is noted there is minimal area of discoloration to the staple line is somewhat hyperemic with concerns of possible early superficial skin necrosis Neuro: Awake alert oriented to person place and time. There are no acute new gross focal sensory motor deficits. - Labs CBC & Chem 7: 12/03/16 06:24 12/03/16 06:24 Labs: Abnormal Lab Results - Last 24 Hours (Table) 11/25/16 12/03/16 12/03/16 Range/Units 12:02 02:25 05:57 RBC (3.80-5.40) m/uL Hgb (11.4-16.0) gm/dL Hct (34.0-46.0) % MCHC (31.0-37.0) g/dL Sodium (137-145) mmol/L Carbon Dioxide (22-30) mmol/L BUN (7-17) mg/dL Creatinine (0.52-1.04) mg/dL Glucose (74-99) mg/dL POC Glucose (mg/dL) 110 H 116 H (75-99) mg/dL Crossmatch See Detail 12/03/16 12/03/16 12/03/16 Range/Units 06:24 06:24 12:02 RBC 2.66 L (3.80-5.40) m/uL Hgb 7.7 L (11.4-16.0) gm/dL Hct 24.9 L (34.0-46.0) % MCHC 30.9 L (31.0-37.0) g/dL Sodium 133 L (137-145) mmol/L Carbon Dioxide 19 L (22-30) mmol/L BUN 39 H (7-17) mg/dL Creatinine 2.62 H (0.52-1.04) mg/dL Glucose 107 H (74-99) mg/dL POC Glucose (mg/dL) 212 H (75-99) mg/dL Crossmatch 12/03/16 Range/Units 16:50 RBC (3.80-5.40) m/uL Hgb (11.4-16.0) gm/dL Hct (34.0-46.0) % MCHC (31.0-37.0) g/dL Sodium (137-145) mmol/L Carbon Dioxide (22-30) mmol/L BUN (7-17) mg/dL Creatinine (0.52-1.04) mg/dL Glucose (74-99) mg/dL POC Glucose (mg/dL) 127 H (75-99) mg/dL Crossmatch Microbiology - Last 24 Hours (Table) 11/28/16 10:03 Blood Culture - Preliminary Blood No Growth after 120 hours 11/28/16 08:53 Blood Culture - Preliminary Blood No Growth after 120 hours Laboratory Results WBC 8.0 k/uL (3.8-10.6) 12/03/16 06:24 RBC 2.66 m/uL (3.80-5.40) L 12/03/16 06:24 Hgb 7.7 gm/dL (11.4-16.0) L 12/03/16 06:24 Hct 24.9 % (34.0-46.0) L 12/03/16 06:24 MCV 93.4 fL (80.0-100.0) 12/03/16 06:24 MCH 28.8 pg (25.0-35.0) 12/03/16 06:24 MCHC 30.9 g/dL (31.0-37.0) L 12/03/16 06:24 RDW 14.7 % (11.5-15.5) 12/03/16 06:24 Plt Count 370 k/uL (150-450) 12/03/16 06:24 Neutrophils % 66 % 11/30/16 05:51 Lymphocytes % 14 % 11/30/16 05:51 Monocytes % 10 % 11/30/16 05:51 Eosinophils % 5 % 11/30/16 05:51 Basophils % 1 % 11/30/16 05:51 Neutrophils # 5.2 k/uL (1.3-7.7) 11/30/16 05:51 Lymphocytes # 1.1 k/uL (1.0-4.8) 11/30/16 05:51 Monocytes # 0.8 k/uL (0-1.0) 11/30/16 05:51 Eosinophils # 0.4 k/uL (0-0.7) 11/30/16 05:51 Basophils # 0.0 k/uL (0-0.2) 11/30/16 05:51 Hypochromasia Slight 12/03/16 06:24 PT 11.1 sec (9.0-12.0) 11/27/16 04:46 INR 1.1 (<1.1) 11/27/16 04:46 Sodium 133 mmol/L (137-145) L 12/03/16 06:24 Potassium 3.8 mmol/L (3.5-5.1) 12/03/16 06:24 Chloride 101 mmol/L (98-107) 12/03/16 06:24 Carbon Dioxide 19 mmol/L (22-30) L 12/03/16 06:24 Anion Gap 13 mmol/L 12/03/16 06:24 BUN 39 mg/dL (7-17) H 12/03/16 06:24 Creatinine 2.62 mg/dL (0.52-1.04) H 12/03/16 06:24 Est GFR (MDRD) Af Amer 22 (>60 ml/min/1.73 sqM) 12/03/16 06:24 Est GFR (MDRD) Non-Af 18 (>60 ml/min/1.73 sqM) 12/03/16 06:24 Glucose 107 mg/dL (74-99) H 12/03/16 06:24 POC Glucose (mg/dL) 127 mg/dL (75-99) H 12/03/16 16:50 POC Glu [employer] CANDELARIA Violeta Hernandez 12/03/16 16:[address] Glu mg/dL 154 mg/dL 11/27/16 04:46 Hemoglobin A1c 7.0 % (4.2-6.1) H 11/27/16 04:46 Osmolality 275 mosm/kg (280-301) L 11/29/16 06:12 Calcium 9.2 mg/dL (8.4-10.2) 12/03/16 06:24 Phosphorus 4.8 mg/dL (2.5-4.5) H 11/27/16 04:46 Magnesium 1.8 mg/dL (1.6-2.3) 12/03/16 06:24 Iron 42 ug/dL (37-170) 11/24/16 07:48 TIBC 238 ug/dL (265-497) L 11/24/16 07:48 % Saturation 17.6 % (20-50) L 11/24/16 07:48 Ferritin 168 ng/mL (11-264) 11/24/16 07:48 Total Bilirubin 0.8 mg/dL (0.2-1.3) 11/30/16 05:51 AST 16 U/L (14-36) 11/30/16 05:51 ALT 33 U/L (9-52) 11/30/16 05:51 Alkaline Phosphatase 67 U/L (38-126) 11/30/16 05:51 Total Protein 5.1 g/dL (6.3-8.2) L 11/30/16 05:51 Albumin 2.7 g/dL (3.5-5.0) L 11/30/16 05:51 Urine Color Yellow 11/28/16 09:55 Urine Appearance Clear (Clear) 11/28/16 09:55 Urine pH 5.5 (5.0-8.0) 11/28/16 09:55 Ur Specific [place] 1.010 (1.001-1.035) 11/28/16 09:55 Urine Protein 2+ (Negative) H 11/28/16 09:55 Urine Glucose (UA) Negative (Negative) 11/28/16 09:55 Urine Ketones Negative (Negative) 11/28/16 09:55 Urine Blood Negative (Negative) 11/28/16 09:55 Urine Nitrate Negative (Negative) 11/28/16 09:55 Urine Bilirubin Negative (Negative) 11/28/16 09:55 Urine Urobilinogen <2.0 mg/dL (<2.0) 11/28/16 09:55 Ur Leukocyte Esterase Negative (Negative) 11/28/16 09:55 Urine WBC 1 /hpf (0-5) 11/28/16 09:55 Urine Mucus Rare /hpf (None) H 11/28/16 09:55 Urine Osmolality 255 mosm/kg (50-1400) 11/29/16 11:26 Ur Random Sodium <5 mmol/L (30-90) L 11/29/16 11:26 Ur Random Potassium 23.4 mmol/L 11/29/16 11:26 Blood Type A Positive 11/25/16 12:02 Blood Type Confirm A Positive 11/24/16 20:03 Blood Type Recheck CABO Indicated 11/25/16 12:02 Antibody Screen NEGATIVE 11/25/16 12:02 Crossmatch See Detail 11/25/16 12:02 Spec Expiration Date 11/28/2016230111/25/16 12:02 Microbiology 11/28/16 10:03 Blood Blood Culture - Preliminary No Growth after 120 hours 11/28/16 08:53 Blood Blood Culture - Preliminary No Growth after 120 hours 11/28/16 09:55 Urine,Catheterized Urine Culture - Final Assessment and Plan (1) Fever Narrative/Plan: 66-year-old male presents to Hospital after her myocardial infarction earlier this year. She presented for her cardiac intervention and stenting was performed to the LAD and circumflex. She been doing well but was having some difficulty with her right groin. In that she developed a temperature 101.2. She has been seen by vascular surgery and repair of her pseudoaneurysms occurred. As evidence of some fever 101.2 erythema and tenderness to the site. With this is concerned infection at that area. She has a known history of vancomycin ALLERGY. With this Ceftaroline 400 mg IV piggyback every 12 hours as utilized. She give coverage for staph including MRSA as well as some routine gram-negative organisms such as E. coli that are in the groin. There is no drainage at this time for culture. Blood cultures are in process. And are negative so far She is symptomatically stable. With her ALLERGIES since she is improving and getting ready for discharge to home ulceration to doxycycline 100 mg twice per day can be utilized She is feeling better except for shortness of breath which has been improving. Does have a history of renal transplantation. Her creatinine is up from her baseline of 1.6, 2.62 today. She is monitored closely from nephrology. IV lasix continues Receiving some diuresis for her significant volume overload. Rosario is in place to measure urinary output. Status: Acute (2) Pseudoaneurysm of right femoral artery Status: Acute (3) Cellulitis of right thigh Status: Acute
[2016-12-03 21:00] LABS: Glucose,Whole Blood 90 mg/dL (75-99)
[2016-12-03] MEDS: hydrALAZINE HCL 25 MG TAB PO SCH (22:50)
[2016-12-04] MEDS: CEFTAROLINE FOSAMIL 300 MG in SODIUM CHLORIDE 0.9% 250 ML IVPB SCH ×3 (00:30→23:21)
[2016-12-04 02:31] LABS: Glucose,Whole Blood 111 mg/dL (75-99)
[2016-12-04 06:17] LABS: Glucose,Whole Blood 107 mg/dL (75-99)
[2016-12-04] MEDS: FERROUS SULFATE 325 MG TAB PO SCH ×2 (07:13→17:13)
[2016-12-04] MEDS: CLOPIDOGREL 75 MG TAB PO SCH (08:42)
[2016-12-04] MEDS: ATORVASTATIN 80 MG TAB PO SCH (08:42)
[2016-12-04] MEDS: TAMSULOSIN 0.4 MG CAP.ER.24H PO SCH (08:42)
[2016-12-04] MEDS: ATENOLOL 50 MG TAB PO SCH (08:42)
[2016-12-04] MEDS: FUROSEMIDE 10 MG/ML 4 ML VIAL IV SCH ×2 (08:42→20:39)
[2016-12-04] MEDS: ASPIRIN 81 MG CHEW PO SCH (08:42)
[2016-12-04] MEDS: LACTULOSE 20 GM/30 ML CUP PO SCH ×4 (08:43→20:41)
[2016-12-04] MEDS: hydrALAZINE HCL 25 MG TAB PO SCH ×2 (08:43→20:39)
[2016-12-04] MEDS: INSULIN GLARGINE 100 UNIT/ML 10 ML VIAL SQ SCH (08:43)
[2016-12-04] MEDS: RANITIDINE SYRUP 150 MG/10 ML CUP PO SCH (08:44)
[2016-12-04] MEDS: MYCOPHENOLATE MOFETIL 250 MG CAP PO SCH ×2 (08:44→20:39)
[2016-12-04] MEDS: SODIUM BICARBONATE TAB 650 MG TAB PO SCH ×2 (08:44→20:38)
[2016-12-04] MEDS: predniSONE 5 MG TAB PO SCH (08:44)
[2016-12-04] MEDS: TACROLIMUS 1 MG CAP PO SCH ×2 (08:44→20:38)
[2016-12-04] MEDS: INSULIN LISPRO SQ SCH ×4 (08:53→23:15)
[2016-12-04] MEDS: LEVALBUTEROL NEB 1.25 MG/3 ML AMP INHALATION SCH ×4 (09:30→19:41)
[2016-12-04 11:14] LABS: Calcium 9.2 mg/dL (8.4-10.2); Potassium 3.4 mmol/L (3.5-5.1)
--- NOTE | 2016-12-04 11:14 | PN ---
Patient is seen for followup for acute kidney injury on top of chronic kidney disease. She is currently being diuresed for significant volume overload. Her renal function has been slowly improving. We do not have labs from today. On examination, the patient is comfortable. Blood pressure is 112/55, heart rate 73 per minute. She is afebrile. EXAMINATION OF THE HEART: S1 and S2. EXAMINATION OF THE LUNGS: Bilateral breath sounds are heard. ABDOMEN: Soft, nontender, obese. Examination of lower extremities shows edema 2 to 3+ bilaterally, slightly improved. 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 Labs are not available from today. ASSESSMENT: 1. Acute kidney injury, acute tubular necrosis, currently slowly improving. Patient is nonoliguric with good urine output. She is maintained on Lasix 40 mg IV q.12 hours, which I will continue for now. Check labs today as well as in a.m. 2. Chronic kidney disease with baseline creatinine 1.6 mg/dL. 3. 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 4. Pseudoaneurysm and hematoma right femoral artery at the site of cardiac cath with some infection, currently maintained on ceftaroline, being followed by Infectious Disease. 5. Hypervolemic hyponatremia, slowly improving. 6. Urine retention with indwelling Rosario catheter. 7. Anemia with no active bleeding noted. Patient is status post packed RBC. She was also started on Aranesp. PLAN: Check labs today and tomorrow and continue with IV Lasix for now.
[2016-12-04 11:43] LABS: Glucose,Whole Blood 122 mg/dL (75-99)
[2016-12-04] MEDS: CHOLECALCIFEROL 1,000 UNIT TAB PO SCH (13:26)
--- NOTE | 2016-12-04 13:56 | P.PN ---
Subjective Principal diagnosis: Circumflex stent This is a pleasant 66-year-old female who was admitted to the hospital , underwent angioplasty, subsequently developed a pseudoaneurysm, requiring thrombin injection. Patient was in the intensive care unit over the weekend, now being followed on the telemetry unit. She does not have any fever or chills. White blood cell count is normal. Overall feeling better every day. Continues to have Rosario catheter in place. Creatinine 2.6. Objective - Vital Signs Vital signs: Vital Signs Temp 98.9 F 12/04/16 08:00 Pulse 74 12/04/16 08:00 Resp 18 12/04/16 08:00 BP 112/55 12/04/16 08:00 Pulse Ox 93 L 12/04/16 08:00 Intake & Output 12/03/16 12/04/16 12/04/16 18:59 06:59 18:59 Intake Total 300 800 Output Total 3004 3605 1 Balance -2704 -2805 -1 Weight 102.9 kg 103.2 kg Intake: Oral 300 800 Output: Urine 3000 3600 Stool 4 5 1 Other: Voiding Method Indwelling Catheter Indwelling Catheter Indwelling Catheter # Voids 1 1 # Bowel Movements 2 - Exam PHYSICAL EXAMINATION: HEENT: Head is atraumatic, normocephalic. Pupils equal, round. Neck is supple. There is no elevated jugular venous pressure. HEART EXAMINATION: Heart S1, S2 normal. No murmur or gallop heard. CHEST EXAMINATION: Circumflex clear with diminished air entry to bilateral bases ABDOMEN: Soft, obese, nontender. Bowel sounds are heard. No organomegaly noted. EXTREMITIES:[ 2+ peripheral pulses with large amount of ecchymosis from the groin down to the knee, significant tenderness. NEUROLOGIC patient is awake, alert and oriented -3. . - Labs CBC & Chem 7: 12/03/16 06:24 12/04/16 10:51 Labs: Abnormal Lab Results - Last 24 Hours (Table) 11/25/16 12/03/16 12/04/16 Range/Units 12:02 16:50 02:18 Sodium (137-145) mmol/L Potassium (3.5-5.1) mmol/L Carbon Dioxide (22-30) mmol/L BUN (7-17) mg/dL Creatinine (0.52-1.04) mg/dL Glucose (74-99) mg/dL POC Glucose (mg/dL) 127 H 111 H (75-99) mg/dL Crossmatch See Detail 12/04/16 12/04/16 12/04/16 Range/Units 06:14 10:51 11:40 Sodium 136 L (137-145) mmol/L Potassium 3.4 L (3.5-5.1) mmol/L Carbon Dioxide 21 L (22-30) mmol/L BUN 39 H (7-17) mg/dL Creatinine 2.60 H (0.52-1.04) mg/dL Glucose 132 H (74-99) mg/dL POC Glucose (mg/dL) 107 H 122 H (75-99) mg/dL Crossmatch Microbiology - Last 24 Hours (Table) 11/28/16 10:03 Blood Culture - Final Blood No Growth after 144 hours 11/28/16 08:53 Blood Culture - Final Blood No Growth after 144 hours Assessment and Plan (1) Presence of stent in LAD coronary artery Status: Acute (2) Presence of stent in left circumflex coronary artery Status: Acute (3) Femoral artery pseudoaneurysm complicating cardiac catheterization Status: Acute (4) Renal insufficiency Status: Acute (5) Hx of kidney transplant Status: Acute (6) Diabetes Status: Acute (7) HTN (hypertension) Status: Acute (8) Hyperlipemia Status: Acute (9) Anemia Status: Acute Plan: From cardiology's perspective, we'll recommend to continue the patient on her current medications. Once she is discharged from the hospital she will follow- up with Dr. Menendez in the office. DNP note has been reviewed, I agree with a documented findings and plan of care. Patient was seen and examined.
--- NOTE | 2016-12-04 14:41 | P.PN ---
Subjective 66-year-old female one of my office patient of known for long time was hospitalized in November 05 of November 10, 2016 for acute myocardial infarction with acute coronary syndrome ended up going for angiogram showed significant stenosis in the LAD and circumflex. Patient kidney function had declined slightly ended up going home after being hydrated and watch her kidney function was seen in the office and see Dr. Ahmadi and patient brought to the hospital on 11/23/2016 for an angioplasty, procedure was done successfully and patient is resting comfortably with no complaint, nephrology consultation was requested and BUN/creatinine to be done an daily basis for the next 2 days. Patient will be admitted for 48 hours. 11/25: Hemoglobin 7.1, BUN 36 and creatinine 1.9. She is status post PTCA and stenting of a complex torturous mid circumflex coronary artery. Nephrology is following. She is continued on Mucomyst and scheduled for IV Ferrlecit 3 days. Patient has developed a right common femoral hematoma and pseudoaneurysm. Dr. Ybarra has evaluated the patient and she is a candidate for thrombin injection of the right femoral pseudoaneurysm. 11/26: Hemoglobin 6.5, BUN 41 and creatinine 2.26. She is continued on Ferrlecit and scheduled for transfusion 1 unit packed RBCs. IV fluids at 50 mL per hour. Patient will complete Mucomyst today. Repeat Ultrasound of the groin today. Bladder scan as needed. 11/27: Yesterday patient underwent repair of perforation of a right profunda femoris artery and evacuation of right groin hematoma with Dr. Ybarra and was subsequently admitted to the ICU. She has a Rosario catheter in place and urine output has been adequate. Rosario will be discontinued this morning. She states she has much decreased pain to the right groin area. She denies any chest pain , shortness of breath. PT is working with her today. Patient is receiving her third dose of Ferrlecit. She has completed her course of Mucomyst. IV fluids at 50 mL per hour. Repeat BUN 40 and creatinine 2.3. Repeat chest x-ray shows borderline cardiomegaly and interstitial prominence which may be chronic. Correlate to exclude mild CHF. 11/28: Patient states that the groin site remains better in regards to pain. Site is warm to the touch. She did have a temperature of 101.2 this morning blood cultures, urinalysis urine culture and chest x-ray have been ordered. Patient does not have a cough or sputum production. She is complaining of feeling achy all over. She has minimal urine output Rosario was removed last night. Morning blood sugar was 95 and patient is on insulin pump. BUN 40 with creatinine 2.7 and hemoglobin 8.4. Infectious disease consult added. Patient is complaining of sore throat for which Cepacol lozenges added. 11/29: Patient is more comfortable able to ambulate out of bed with help her hemoglobin dropped down slightly but she is feeling better she was transfer out of the intensive care unit yesterday. No need for blood transfusion yet but hemoglobin is below 8 we'll wait till tomorrow repeat another CBC if it remain in the mid 7 transfusion be done. Expectation for discharge hopefully over the next 48 hours creatinine has plateau over the last 2 days with no significant declining kidney function at this point 11/30: Ultrasound venous Doppler duplex of the right lower extremity is negative for DVT. Patient complains of nausea this morning for which Zofran has been added. She was given Lasix 60 mg IV 1. She states her breathing status is okay. Repeat BUN 40 and creatinine 2.8, potassium 4.1. Hemoglobin 7.8. She is currently on Ceftaroline and followed by Dr. Rendon. 12/01: BUN today is [address] Rendon as recommended most likely doxycycline at the time of discharge.she is status post Lasix 1 dose today. She is on fluid restriction.she hasn't some problem with urinary retention for which she was straight cathed.nephrology has started Flomax. 12/02: BUN 42 and creatinine 2.79. Hemoglobin 7.4. Fluid balance is -950. Weight is same from yesterday. She states she feels puffy. No lasix today. 12/03: Nephrology has continue patient on IV Lasix. Norvasc discontinued as patient's blood pressure is on the low side. She is continued on sodium bicarb. Kidney function continues to improve with BUN 39 creatinine 2.62. Hemoglobin is stable at 7.7. Blood sugars running 110-163. 12/04: Bun 39 and creatinine 2.6. Good urine output. She is continued on Lasix 40 mg IV twice daily. Weight is slightly up today. Aranesp was started. Objective - Vital Signs Vital signs: Vital Signs Temp 98.9 F 12/04/16 08:00 Pulse 74 12/04/16 08:00 Resp 18 12/04/16 08:00 BP 112/55 12/04/16 08:00 Pulse Ox 93 L 12/04/16 08:00 Intake & Output 12/03/16 12/04/16 12/04/16 18:59 06:59 18:59 Intake Total 300 800 Output Total 3004 3605 Balance -2704 -2805 Weight 102.9 kg 103.2 kg Intake: Oral 300 800 Output: Urine 3000 3600 Stool 4 5 Other: Voiding Method Indwelling Catheter Indwelling Catheter # Voids 1 1 # Bowel Movements 2 - Exam General appearance: no average body habitus, cooperative, no disheveled, no mild distress, no morbidly obese, no acute distress, no obese, no severe distress, no thin - EENT Eyes: no abnormal pupil, no anicteric sclerae, no disc margins sharp, no edentulous, no EOMI, no PERRLA, no fundus normal, no photophobia, no dentition normal, no poor dentition, no ptosis, no scleral icterus, normal appearance ENT: no hard of hearing, no hearing grossly normal, no NA/AT, normal oropharynx , no other, no pharyngeal erythema, no thrush, no tonsillar exudates, no tonsillar swelling Ears: bilateral: normal - Neck Neck: no lymphadenopathy, normal ROM, no other, no rigidity, no stridor, no thyromegaly Carotids: bilateral: upstroke normal Thyroid: bilateral: normal size - Respiratory Respiratory: bilateral: CTA, diminished - Cardiovascular Rhythm: regular Heart sounds: normal: S1, S2 Abnormal Heart Sounds: systolic murmur - Gastrointestinal General gastrointestinal: no absent bowel sounds, decreased bowel sounds, no distended, no hepatomegaly, no hyperactive bowel sounds, normal bowel sounds, no organomegaly, no rigid, no scaphoid, soft, no splenomegaly, no tenderness, no umbilical hernia, no ventral hernia - Integumentary Integumentary: Large mass in the right groin, less tender, no cyanotic, no decreased turgor, no flushed, no jaundiced, normal, no normal turgor, pale, rash , no ulcer - Neurologic Neurologic: CNII-XII intact - Musculoskeletal Musculoskeletal: gait normal, generalized weakness, strength equal bilaterally, no right sided weakness, no left sided weakness - Psychiatric Psychiatric: A&O x's 3, appropriate affect, no intact judgment & insight - Labs CBC & Chem 7: 12/03/16 06:24 12/04/16 10:51 Labs: Abnormal Lab Results - Last 24 Hours (Table) 11/25/16 12/03/16 12/03/16 Range/Units 12:02 12:02 16:50 POC Glucose (mg/dL) 212 H 127 H (75-99) mg/dL Crossmatch See Detail 12/04/16 12/04/16 Range/Units 02:18 06:14 POC Glucose (mg/dL) 111 H 107 H (75-99) mg/dL Crossmatch Microbiology - Last 24 Hours (Table) 11/28/16 10:03 Blood Culture - Preliminary Blood No Growth after 120 hours 11/28/16 08:53 Blood Culture - Preliminary Blood No Growth after 120 hours Assessment and Plan Plan: 1 CAD: With multiple coronary artery disease patent lesion in the RCA with stent still open, had 2 more lesion 1 in the LAD and one in the circumflex which Dr. Ahmadi has done an angioplasty and stent placement successfully. 2. Right common femoral hematoma and pseudoaneurysm with possible early sepsis and wound infection developing. Dr. Ybarra on consult. Plan for thrombin injection of the right femoral pseudoaneurysm. Status post repair of pseudoaneurysm right groin. Blood cultures, urine culture, urinalysis, chest x- ray and ID consult added. Continue Ceftaroline. 3. post AR with acute coronary syndrome: Patient has done well since her last admission. 4. Acute kidney injury on chronic kidney disease stage III post kidney transplant, patient is still seen nephrology regular basis which will be followed daily with repeat BUN/creatinine. Sodium bicarb, Lasix 40 IV every 12 hours 5. diabetes mellitus type 2: Patient is on insulin pump continue insulin pump watch her Accu-Chek with sliding scales coverage. 6. hyperlipidemia: On Lipitor 20 mg daily. 7. GERD: Patient is on Zantac or H2 jai and doing well. 8. post renal transplant: Patient to continue CellCept 750 mg orally twice a day along with Prograf 2 mg twice a day and prednisone 5 mg daily. 9. hypertension: Continue atenolol 100 mg daily. Norvasc was discontinued. 10. Urinary retention for which patient required straight cath. Flomax added. 11. Acute blood loss anemia status post transfusion and anemia of chronic kidney disease. On Aranesp. CODE STATUS: Full code. Discharge plan: Return home Impression and plan of care have been directed as dictated by the signing physician. Lainey Cameron nurse practitioner acting as scribe for signing physician. Time with Patient: Greater than 30
[2016-12-04 16:59] LABS: Glucose,Whole Blood 65 mg/dL (75-99)
[2016-12-04 21:44] LABS: Glucose,Whole Blood 68 mg/dL (75-99)
[2016-12-04 22:03] LABS: Glucose,Whole Blood 81 mg/dL (75-99)
[2016-12-05] MEDS: ALPRAZolam 0.5 MG TAB PO PRN ×2 (00:15→20:58)
[2016-12-05 05:55] LABS: Glucose,Whole Blood 61 mg/dL (75-99)
[2016-12-05] MEDS: INSULIN LISPRO SQ SCH ×4 (06:13→20:58)
[2016-12-05 06:23] LABS: Glucose,Whole Blood 78 mg/dL (75-99)
[2016-12-05 06:37] LABS: Calcium 9.1 mg/dL (8.4-10.2); Potassium 3.5 mmol/L (3.5-5.1)
[2016-12-05] MEDS: FERROUS SULFATE 325 MG TAB PO SCH ×2 (06:41→18:14)
[2016-12-05] MEDS: LEVALBUTEROL NEB 1.25 MG/3 ML AMP INHALATION SCH ×4 (07:31→20:19)
[2016-12-05] MEDS: CEFTAROLINE FOSAMIL 300 MG in SODIUM CHLORIDE 0.9% 250 ML IVPB SCH ×2 (08:54→20:58)
[2016-12-05] MEDS: TAMSULOSIN 0.4 MG CAP.ER.24H PO SCH (08:55)
[2016-12-05] MEDS: ASPIRIN 81 MG CHEW PO SCH (08:55)
[2016-12-05] MEDS: ATENOLOL 50 MG TAB PO SCH (08:55)
[2016-12-05] MEDS: ATORVASTATIN 80 MG TAB PO SCH (08:56)
[2016-12-05] MEDS: CLOPIDOGREL 75 MG TAB PO SCH (08:56)
[2016-12-05] MEDS: LACTULOSE 20 GM/30 ML CUP PO SCH ×3 (08:56→21:03)
[2016-12-05] MEDS: hydrALAZINE HCL 25 MG TAB PO SCH ×2 (08:56→20:57)
[2016-12-05] MEDS: MYCOPHENOLATE MOFETIL 250 MG CAP PO SCH ×2 (08:57→20:57)
[2016-12-05] MEDS: RANITIDINE SYRUP 150 MG/10 ML CUP PO SCH (08:57)
[2016-12-05] MEDS: predniSONE 5 MG TAB PO SCH (08:57)
[2016-12-05] MEDS: TACROLIMUS 1 MG CAP PO SCH ×2 (08:58→20:57)
[2016-12-05] MEDS: SODIUM BICARBONATE TAB 650 MG TAB PO SCH ×2 (08:58→20:57)
[2016-12-05] MEDS ORDERED: FUROSEMIDE 10 MG/ML 4 ML VIAL IV SCH (09:00)
--- NOTE | 2016-12-05 09:11 | P.PN ---
Subjective Principal diagnosis: Circumflex stent This is a pleasant 66-year-old female who was admitted to the hospital , underwent angioplasty, subsequently developed a pseudoaneurysm, requiring thrombin injection. Patient has a history of a kidney transplant, creatinine has remained stable over the past few days, 2.6 today. Nephrology is following along closely. Creatinine today 2.6. She is currently on IV Lasix every 12 hourly, nephrology will he can reset to once daily today. Continues to have Rosario catheter in place. Patient is sitting up in the chair at the time of my examination, overall feeling much better today. Plan is to change patient over to oral diuretics tomorrow if stable, plan for possible discharge home on Wednesday. Objective - Vital Signs Vital signs: Vital Signs Temp 98.5 F 12/05/16 08:40 Pulse 86 12/05/16 08:40 Resp 16 12/05/16 08:52 BP 131/72 12/05/16 08:40 Pulse Ox 93 L 12/05/16 08:40 Intake & Output 12/04/16 12/05/16 12/05/16 18:59 06:59 18:59 Intake Total 318 1190 Output Total 1 1403 Balance 317 -213 Weight 102.4 kg Intake: IV 320 0.9 NS at 20 ml/hr 320 Intake, IV Titration 250 Amount Ceftaroline Fosamil 300 250 mg In Sodium Chloride 0.9 % 250 ml @ 250 mls/hr IVPB Q12HR [facility] Rx#: [id number] Oral 318 620 Output: Urine 1400 Straight 800 Uretheral (Rosario) 600 Stool 1 3 Other: Voiding Method Indwelling Catheter Indwelling Catheter Indwelling Catheter # Bowel Movements 2 1 - Exam PHYSICAL EXAMINATION: HEENT: Head is atraumatic, normocephalic. Pupils equal, round. Neck is supple. There is no elevated jugular venous pressure. HEART EXAMINATION: Heart S1, S2 normal. No murmur or gallop heard. CHEST EXAMINATION: Lungs are clear with diminished air entry to bilateral bases ABDOMEN: Soft, obese, nontender. Bowel sounds are heard. No organomegaly noted. EXTREMITIES:[ 2+ peripheral pulses with large amount of ecchymosis from the groin down to the knee, soft, no hematoma, mild tenderness. NEUROLOGIC patient is awake, alert and oriented -3. . - Labs CBC & Chem 7: 12/03/16 06:24 12/05/16 05:50 Labs: Abnormal Lab Results - Last 24 Hours (Table) 12/04/16 12/04/16 12/04/16 Range/Units 10:51 11:40 16:52 Sodium 136 L (137-145) mmol/L Potassium 3.4 L (3.5-5.1) mmol/L Carbon Dioxide 21 L (22-30) mmol/L BUN 39 H (7-17) mg/dL Creatinine 2.60 H (0.52-1.04) mg/dL Glucose 132 H (74-99) mg/dL POC Glucose (mg/dL) 122 H 65 L (75-99) mg/dL 12/04/16 12/05/16 12/05/16 Range/Units 21:42 05:50 05:51 Sodium (137-145) mmol/L Potassium (3.5-5.1) mmol/L Carbon Dioxide (22-30) mmol/L BUN 38 H (7-17) mg/dL Creatinine 2.61 H (0.52-1.04) mg/dL Glucose 58 L (74-99) mg/dL POC Glucose (mg/dL) 68 L 61 L (75-99) mg/dL Microbiology - Last 24 Hours (Table) 11/28/16 10:03 Blood Culture - Final Blood No Growth after 144 hours 11/28/16 08:53 Blood Culture - Final Blood No Growth after 144 hours Assessment and Plan (1) Presence of stent in LAD coronary artery Status: Acute (2) Presence of stent in left circumflex coronary artery Status: Acute (3) Femoral artery pseudoaneurysm complicating cardiac catheterization Status: Acute (4) Renal insufficiency Status: Acute (5) Hx of kidney transplant Status: Acute (6) Diabetes Status: Acute (7) HTN (hypertension) Status: Acute (8) Hyperlipemia Status: Acute (9) Anemia Status: Acute Plan: From cardiology's perspective, IV Lasix be decreased to once daily. Continue to monitor intake and output along with daily weights. Possibly switch over to oral Lasix tomorrow, plan for possible discharge home on Wednesday. DNP note has been reviewed, I agree with a documented findings and plan of care. Patient was seen and examined.
[2016-12-05 10:31] LABS: Glucose,Whole Blood 178 mg/dL (75-99)
[2016-12-05] MEDS: INSULIN GLARGINE 100 UNIT/ML 10 ML VIAL SQ SCH (10:34)
--- NOTE | 2016-12-05 11:22 | PN ---
Patient is seen for followup for acute kidney injury secondary to acute tubular necrosis associated with severe fluid overload. She is maintained on Lasix 40 mg IV q.12 hours and her volume status has improved. Renal function staying fairly stable with creatinine at about 2.6 for the last 3 days. On examination today, patient's blood pressure is 131/72, heart rate 80 per minute. She is afebrile. EXAMINATION OF THE HEART: S1 and S2. EXAMINATION OF THE LUNGS: Bilateral breath sounds are heard. ABDOMEN: Soft, nontender, obese. Examination of lower extremities shows edema 2+, but much decreased. BEHAVIOR MANAGEMENT SPECIALIST exam is grossly intact. Labs show sodium 138, potassium 3.5, BUN 38, serum creatinine 2.6. ASSESSMENT: 1. Acute kidney injury secondary to acute tubular necrosis, currently nonoliguric. Will decrease the Lasix to IV once a day and keep it at 40 mg. Patient is encouraged to increase her protein intake. Continue to try and avoid hypotension. Blood pressure medications have been reduced and currently systolic blood pressure is acceptable at about 130 mmHg. 2. Volume overload, currently improving. Decrease Lasix to 40 mg IV daily. 3. 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 4. Pseudoaneurysm hematoma and infection at the site of the cardiac catheterization at the femoral artery currently maintained on ceftaroline with significant improvement. The patient is being seen by Infectious Disease. 5. Urinary retention with indwelling Rosario catheter. 6. Anemia with no active bleeding noted, currently maintained on ESAs. PLAN: Decrease Lasix. Repeat labs in the a.m. Continue to avoid nephrotoxic agents and avoid hypotension.
[2016-12-05 11:40] LABS: Glucose,Whole Blood 173 mg/dL (75-99)
[2016-12-05] MEDS: POTASSIUM CHLORIDE ER 20 MEQ TAB.ER PO SCH ×2 (12:09→13:48)
[2016-12-05] MEDS: CHOLECALCIFEROL 1,000 UNIT TAB PO SCH (12:10)
[2016-12-05 13:57] LABS: Glucose,Whole Blood 201 mg/dL (75-99)
--- NOTE | 2016-12-05 16:29 | P.PN ---
Subjective 66-year-old female one of my office patient of known for long time was hospitalized in November 05 of November 10, 2016 for acute myocardial infarction with acute coronary syndrome ended up going for angiogram showed significant stenosis in the LAD and circumflex. Patient kidney function had declined slightly ended up going home after being hydrated and watch her kidney function was seen in the office and see Dr. Ahmadi and patient brought to the hospital on 11/23/2016 for an angioplasty, procedure was done successfully and patient is resting comfortably with no complaint, nephrology consultation was requested and BUN/creatinine to be done an daily basis for the next 2 days. Patient will be admitted for 48 hours. 11/25: Hemoglobin 7.1, BUN 36 and creatinine 1.9. She is status post PTCA and stenting of a complex torturous mid circumflex coronary artery. Nephrology is following. She is continued on Mucomyst and scheduled for IV Ferrlecit 3 days. Patient has developed a right common femoral hematoma and pseudoaneurysm. Dr. Ybarra has evaluated the patient and she is a candidate for thrombin injection of the right femoral pseudoaneurysm. 11/26: Hemoglobin 6.5, BUN 41 and creatinine 2.26. She is continued on Ferrlecit and scheduled for transfusion 1 unit packed RBCs. IV fluids at 50 mL per hour. Patient will complete Mucomyst today. Repeat Ultrasound of the groin today. Bladder scan as needed. 11/27: Yesterday patient underwent repair of perforation of a right profunda femoris artery and evacuation of right groin hematoma with Dr. Ybarra and was subsequently admitted to the ICU. She has a Rosario catheter in place and urine output has been adequate. Rosario will be discontinued this morning. She states she has much decreased pain to the right groin area. She denies any chest pain , shortness of breath. PT is working with her today. Patient is receiving her third dose of Ferrlecit. She has completed her course of Mucomyst. IV fluids at 50 mL per hour. Repeat BUN 40 and creatinine 2.3. Repeat chest x-ray shows borderline cardiomegaly and interstitial prominence which may be chronic. Correlate to exclude mild CHF. 11/28: Patient states that the groin site remains better in regards to pain. Site is warm to the touch. She did have a temperature of 101.2 this morning blood cultures, urinalysis urine culture and chest x-ray have been ordered. Patient does not have a cough or sputum production. She is complaining of feeling achy all over. She has minimal urine output Rosario was removed last night. Morning blood sugar was 95 and patient is on insulin pump. BUN 40 with creatinine 2.7 and hemoglobin 8.4. Infectious disease consult added. Patient is complaining of sore throat for which Cepacol lozenges added. 11/29: Patient is more comfortable able to ambulate out of bed with help her hemoglobin dropped down slightly but she is feeling better she was transfer out of the intensive care unit yesterday. No need for blood transfusion yet but hemoglobin is below 8 we'll wait till tomorrow repeat another CBC if it remain in the mid 7 transfusion be done. Expectation for discharge hopefully over the next 48 hours creatinine has plateau over the last 2 days with no significant declining kidney function at this point 11/30: Ultrasound venous Doppler duplex of the right lower extremity is negative for DVT. Patient complains of nausea this morning for which Zofran has been added. She was given Lasix 60 mg IV 1. She states her breathing status is okay. Repeat BUN 40 and creatinine 2.8, potassium 4.1. Hemoglobin 7.8. She is currently on Ceftaroline and followed by Dr. Rendon. 12/01: BUN today is [address] Rendon as recommended most likely doxycycline at the time of discharge.she is status post Lasix 1 dose today. She is on fluid restriction.she hasn't some problem with urinary retention for which she was straight cathed.nephrology has started Flomax. 12/02: BUN 42 and creatinine 2.79. Hemoglobin 7.4. Fluid balance is -950. Weight is same from yesterday. She states she feels puffy. No lasix today. 12/03: Nephrology has continue patient on IV Lasix. Norvasc discontinued as patient's blood pressure is on the low side. She is continued on sodium bicarb. Kidney function continues to improve with BUN 39 creatinine 2.62. Hemoglobin is stable at 7.7. Blood sugars running 110-163. 12/04: Bun 39 and creatinine 2.6. Good urine output. She is continued on Lasix 40 mg IV twice daily. Weight is slightly up today. Aranesp was started. 12/05: Patient is sitting up in chair at her was at the bedside, the patient continues to have significant anasarca all over her body with significant bruising to the right upper extremity yet her creatinine is about the same 2.6. Objective - Vital Signs Vital signs: Vital Signs Temp 98.5 F 12/05/16 08:40 Pulse 78 12/05/16 12:08 Resp 16 12/05/16 12:15 BP 132/59 12/05/16 12:08 Pulse Ox 92 L 12/05/16 12:08 Intake & Output 12/04/16 12/05/16 12/05/16 18:59 06:59 18:59 Intake Total 318 1190 Output Total 1 1403 Balance 317 -213 Weight 102.4 kg Intake: IV 320 0.9 NS at 20 ml/hr 320 Intake, IV Titration 250 Amount Ceftaroline Fosamil 300 250 mg In Sodium Chloride 0.9 % 250 ml @ 250 mls/hr IVPB Q12HR [facility] Rx#: [id number] Oral 318 620 Output: Urine 1400 Straight 800 Uretheral (Rosario) 600 Stool 1 3 Other: Voiding Method Indwelling Catheter Indwelling Catheter Indwelling Catheter # Bowel Movements 2 1 - Exam - Exam General appearance: no average body habitus, cooperative, no disheveled, no mild distress, no morbidly obese, no acute distress, no obese, no severe distress, no thin - EENT Eyes: no abnormal pupil, no anicteric sclerae, no disc margins sharp, no edentulous, no EOMI, no PERRLA, no fundus normal, no photophobia, no dentition normal, no poor dentition, no ptosis, no scleral icterus, normal appearance ENT: no hard of hearing, no hearing grossly normal, no NA/AT, normal oropharynx , no other, no pharyngeal erythema, no thrush, no tonsillar exudates, no tonsillar swelling Ears: bilateral: normal - Neck Neck: no lymphadenopathy, normal ROM, no other, no rigidity, no stridor, no thyromegaly Carotids: bilateral: upstroke normal Thyroid: bilateral: normal size - Respiratory Respiratory: bilateral: CTA, diminished - Cardiovascular Rhythm: regular Heart sounds: normal: S1, S2 Abnormal Heart Sounds: systolic murmur - Gastrointestinal General gastrointestinal: no absent bowel sounds, decreased bowel sounds, no distended, no hepatomegaly, no hyperactive bowel sounds, normal bowel sounds, no organomegaly, no rigid, no scaphoid, soft, no splenomegaly, no tenderness, no umbilical hernia, no ventral hernia - Integumentary Integumentary: Large mass in the right groin, less tender, no cyanotic, no decreased turgor, no flushed, no jaundiced, normal, no normal turgor, pale, rash , no ulcer - Neurologic Neurologic: CNII-XII intact - Musculoskeletal Musculoskeletal: gait normal, generalized weakness, strength equal bilaterally, no right sided weakness, no left sided weakness - Psychiatric Psychiatric: A&O x's 3, appropriate affect, no intact judgment & insight - Labs CBC & Chem 7: 12/03/16 06:24 12/05/16 05:50 Labs: Abnormal Lab Results - Last 24 Hours (Table) 12/04/16 12/04/16 12/05/16 Range/Units 16:52 21:42 05:50 BUN 38 H (7-17) mg/dL Creatinine 2.61 H (0.52-1.04) mg/dL Glucose 58 L (74-99) mg/dL POC Glucose (mg/dL) 65 L 68 L (75-99) mg/dL 12/05/16 12/05/16 12/05/16 Range/Units 05:51 10:29 11:38 BUN (7-17) mg/dL Creatinine (0.52-1.04) mg/dL Glucose (74-99) mg/dL POC Glucose (mg/dL) 61 L 178 H 173 H (75-99) mg/dL Microbiology - Last 24 Hours (Table) 11/28/16 10:03 Blood Culture - Final Blood No Growth after 144 hours 11/28/16 08:53 Blood Culture - Final Blood No Growth after 144 hours Assessment and Plan Plan: Assessment and Plan Plan: 1 CAD: With multiple coronary artery disease patent lesion in the RCA with stent still open, had 2 more lesion 1 in the LAD and one in the circumflex which Dr. Ahmadi has done an angioplasty and stent placement successfully. 2. Right common femoral hematoma and pseudoaneurysm with possible early sepsis and wound infection developing. Dr. Ybarra on consult. Plan for thrombin injection of the right femoral pseudoaneurysm. Status post repair of pseudoaneurysm right groin. Blood cultures, urine culture, urinalysis, chest x- ray and ID consult added. Continue Ceftaroline. 3. post [place] with acute coronary syndrome: Patient has done well since her last admission. 4. Acute kidney injury on chronic kidney disease stage III post kidney transplant, patient is still seen nephrology regular basis which will be followed daily with repeat BUN/creatinine. Sodium bicarb, Lasix 40 IV every 12 hours 5. diabetes mellitus type 2: Patient is on insulin pump continue insulin pump watch her Accu-Chek with sliding scales coverage. 6. hyperlipidemia: On Lipitor 20 mg daily. 7. GERD: Patient is on Zantac or H2 jai and doing well. 8. post renal transplant: Patient to continue CellCept 750 mg orally twice a day along with Prograf 2 mg twice a day and prednisone 5 mg daily. 9. hypertension: Continue atenolol 100 mg daily. Norvasc was discontinued. 10. Urinary retention for which patient required straight cath. Flomax added. 11. Acute blood loss anemia status post transfusion and anemia of chronic kidney disease. On Aranesp.
[2016-12-05 16:36] LABS: Glucose,Whole Blood 174 mg/dL (75-99)
[2016-12-05 20:58] LABS: Glucose,Whole Blood 178 mg/dL (75-99)
[2016-12-06 06:18] LABS: Glucose,Whole Blood 98 mg/dL (75-99)
[2016-12-06 06:36] LABS: Basophils % (A) 1 %; CH 29.9; CHCM 32.9; Eosinophils # (A) 0.3 k/uL (0-0.7); Eosinophils % (A) 4 %; HCT 25.5 % (34.0-46.0); HDW 2.99; HGB 8.1 gm/dL (11.4-16.0); Luc # (Auto) 0.29; Luc % (Auto) 4; Lymphocytes % (A) 13 %; MCH 29.3 pg (25.0-35.0); MCV 91.4 fL (80.0-100.0); Mean Platelet Volume 6.5; Monocytes # (A) 0.7 k/uL (0-1.0); Monocytes % (A) 9 %; Neutrophils # (A) 5.4 k/uL (1.3-7.7); Neutrophils % (A) 69 %; RBC 2.79 m/uL (3.80-5.40); RDW 14.9 % (11.5-15.5); WBC 7.8 k/uL (3.8-10.6); WBC (Perox) 7.98
[2016-12-06] MEDS: INSULIN LISPRO SQ SCH ×4 (06:50→21:32)
[2016-12-06] MEDS: FERROUS SULFATE 325 MG TAB PO SCH ×2 (06:51→20:20)
[2016-12-06 07:14] LABS: Calcium 9.2 mg/dL (8.4-10.2); Potassium 4.3 mmol/L (3.5-5.1); Total Bilirubin 0.7 mg/dL (0.2-1.3); Total Protein 5.2 g/dL (6.3-8.2)
[2016-12-06] MEDS: ALPRAZolam 0.25 MG TAB PO PRN (07:55)
[2016-12-06] MEDS: LEVALBUTEROL NEB 1.25 MG/3 ML AMP INHALATION SCH ×4 (07:55→19:46)
[2016-12-06] MEDS ORDERED: FUROSEMIDE 10 MG/ML 10 ML VIAL IV STA (09:03)
[2016-12-06] MEDS: FUROSEMIDE 10 MG/ML 10 ML VIAL IV SCH ×2 (09:14→20:17)
[2016-12-06] MEDS: INSULIN GLARGINE 100 UNIT/ML 10 ML VIAL SQ SCH (09:15)
[2016-12-06] MEDS: TAMSULOSIN 0.4 MG CAP.ER.24H PO SCH (09:41)
[2016-12-06] MEDS: ATORVASTATIN 80 MG TAB PO SCH (09:41)
[2016-12-06] MEDS: ATENOLOL 50 MG TAB PO SCH (09:41)
[2016-12-06] MEDS: ASPIRIN 81 MG CHEW PO SCH (09:41)
[2016-12-06] MEDS: TACROLIMUS 1 MG CAP PO SCH ×2 (09:42→20:20)
[2016-12-06] MEDS: CLOPIDOGREL 75 MG TAB PO SCH (09:42)
[2016-12-06] MEDS: hydrALAZINE HCL 25 MG TAB PO SCH (09:42)
[2016-12-06] MEDS: SODIUM BICARBONATE TAB 650 MG TAB PO SCH ×2 (09:42→20:21)
[2016-12-06] MEDS: RANITIDINE SYRUP 150 MG/10 ML CUP PO SCH (09:42)
[2016-12-06] MEDS: LACTULOSE 20 GM/30 ML CUP PO SCH ×3 (09:42→20:24)
[2016-12-06] MEDS: predniSONE 5 MG TAB PO SCH (09:42)
[2016-12-06] MEDS: MYCOPHENOLATE MOFETIL 250 MG CAP PO SCH ×2 (09:43→20:20)
[2016-12-06] MEDS: CEFTAROLINE FOSAMIL 300 MG in SODIUM CHLORIDE 0.9% 250 ML IVPB SCH ×2 (09:56→20:23)
--- NOTE | 2016-12-06 10:03 | XR ---
EXAMINATION TYPE: XR chest 1V portable DATE OF EXAM: 12/06/2016 9:41 AM COMPARISON: 11/28/2016 HISTORY: Shortness of breath FINDINGS: Noted is pulmonary venous congestion with scattered infiltrates. There is also cardiomegaly and small effusions. IMPRESSION: Findings compatible with congestive failure. Infiltrates of other etiology are not excluded. Clinical correlation and progress studies are recommended.
--- NOTE | 2016-12-06 10:03 | P.PN ---
Subjective 66-year-old female one of my office patient of known for long time was hospitalized in November 05 of November 10, 2016 for acute myocardial infarction with acute coronary syndrome ended up going for angiogram showed significant stenosis in the LAD and circumflex. Patient kidney function had declined slightly ended up going home after being hydrated and watch her kidney function was seen in the office and see Dr. Ahmadi and patient brought to the hospital on 11/23/2016 for an angioplasty, procedure was done successfully and patient is resting comfortably with no complaint, nephrology consultation was requested and BUN/creatinine to be done an daily basis for the next 2 days. Patient will be admitted for 48 hours. 11/25: Hemoglobin 7.1, BUN 36 and creatinine 1.9. She is status post PTCA and stenting of a complex torturous mid circumflex coronary artery. Nephrology is following. She is continued on Mucomyst and scheduled for IV Ferrlecit 3 days. Patient has developed a right common femoral hematoma and pseudoaneurysm. Dr. Ybarra has evaluated the patient and she is a candidate for thrombin injection of the right femoral pseudoaneurysm. 11/26: Hemoglobin 6.5, BUN 41 and creatinine 2.26. She is continued on Ferrlecit and scheduled for transfusion 1 unit packed RBCs. IV fluids at 50 mL per hour. Patient will complete Mucomyst today. Repeat Ultrasound of the groin today. Bladder scan as needed. 11/27: Yesterday patient underwent repair of perforation of a right profunda femoris artery and evacuation of right groin hematoma with Dr. Ybarra and was subsequently admitted to the ICU. She has a Rosario catheter in place and urine output has been adequate. Rosario will be discontinued this morning. She states she has much decreased pain to the right groin area. She denies any chest pain , shortness of breath. PT is working with her today. Patient is receiving her third dose of Ferrlecit. She has completed her course of Mucomyst. IV fluids at 50 mL per hour. Repeat BUN 40 and creatinine 2.3. Repeat chest x-ray shows borderline cardiomegaly and interstitial prominence which may be chronic. Correlate to exclude mild CHF. 11/28: Patient states that the groin site remains better in regards to pain. Site is warm to the touch. She did have a temperature of 101.2 this morning blood cultures, urinalysis urine culture and chest x-ray have been ordered. Patient does not have a cough or sputum production. She is complaining of feeling achy all over. She has minimal urine output Rosario was removed last night. Morning blood sugar was 95 and patient is on insulin pump. BUN 40 with creatinine 2.7 and hemoglobin 8.4. Infectious disease consult added. Patient is complaining of sore throat for which Cepacol lozenges added. 11/29: Patient is more comfortable able to ambulate out of bed with help her hemoglobin dropped down slightly but she is feeling better she was transfer out of the intensive care unit yesterday. No need for blood transfusion yet but hemoglobin is below 8 we'll wait till tomorrow repeat another CBC if it remain in the mid 7 transfusion be done. Expectation for discharge hopefully over the next 48 hours creatinine has plateau over the last 2 days with no significant declining kidney function at this point 11/30: Ultrasound venous Doppler duplex of the right lower extremity is negative for DVT. Patient complains of nausea this morning for which Zofran has been added. She was given Lasix 60 mg IV 1. She states her breathing status is okay. Repeat BUN 40 and creatinine 2.8, potassium 4.1. Hemoglobin 7.8. She is currently on Ceftaroline and followed by Dr. Rendon. 12/01: BUN today is [address] Rendon as recommended most likely doxycycline at the time of discharge.she is status post Lasix 1 dose today. She is on fluid restriction.she hasn't some problem with urinary retention for which she was straight cathed.nephrology has started Flomax. 12/02: BUN 42 and creatinine 2.79. Hemoglobin 7.4. Fluid balance is -950. Weight is same from yesterday. She states she feels puffy. No lasix today. 12/03: Nephrology has continue patient on IV Lasix. Norvasc discontinued as patient's blood pressure is on the low side. She is continued on sodium bicarb. Kidney function continues to improve with BUN 39 creatinine 2.62. Hemoglobin is stable at 7.7. Blood sugars running 110-163. 12/04: Bun 39 and creatinine 2.6. Good urine output. She is continued on Lasix 40 mg IV twice daily. Weight is slightly up today. Aranesp was started. 12/05: Patient is sitting up in chair at her was at the bedside, the patient continues to have significant anasarca all over her body with significant bruising to the right upper extremity yet her creatinine is about the same 2.6. 12/06: Patient is complaining of significant shortness of breath, as well as significant swelling in both lower extremities and upper extremities as a matter fact she could not even walk a few steps without getting extremely short of breath, she was given Lasix 60 minute gram IV push 1 this will be repeated again in 12 hours. Objective - Vital Signs Vital signs: Vital Signs Temp 98.1 F 12/06/16 04:00 Pulse 92 12/06/16 07:56 Resp 17 12/06/16 04:00 BP 151/73 12/06/16 04:00 Pulse Ox 93 L 12/06/16 04:00 Intake & Output 12/05/16 12/06/16 12/06/16 18:59 06:59 18:59 Intake Total 40 730 Output Total 1776 1053 Balance -1736 -323 Weight 100.9 kg Intake: IV 240 0.9 NS at 20 ml/hr 240 Intake, IV Titration 250 Amount Ceftaroline Fosamil 300 250 mg In Sodium Chloride 0.9 % 250 ml @ 250 mls/hr IVPB Q12HR [facility] Rx#: [id number] Oral 40 240 Output: Urine 1775 1050 Stool 1 3 Other: Voiding Method Indwelling Catheter Indwelling Catheter # Voids 1 # Bowel Movements 1 - Exam - Exam General appearance: no average body habitus, cooperative, no disheveled, no mild distress, no morbidly obese, no acute distress, no obese, no severe distress, no thin - EENT Eyes: no abnormal pupil, no anicteric sclerae, no disc margins sharp, no edentulous, no EOMI, no PERRLA, no fundus normal, no photophobia, no dentition normal, no poor dentition, no ptosis, no scleral icterus, normal appearance ENT: no hard of hearing, no hearing grossly normal, no NA/AT, normal oropharynx , no other, no pharyngeal erythema, no thrush, no tonsillar exudates, no tonsillar swelling Ears: bilateral: normal - Neck Neck: no lymphadenopathy, normal ROM, no other, no rigidity, no stridor, no thyromegaly Carotids: bilateral: upstroke normal Thyroid: bilateral: normal size - Respiratory Respiratory: bilateral: CTA, diminished - Cardiovascular Rhythm: regular Heart sounds: normal: S1, S2 Abnormal Heart Sounds: systolic murmur - Gastrointestinal General gastrointestinal: no absent bowel sounds, decreased bowel sounds, no distended, no hepatomegaly, no hyperactive bowel sounds, normal bowel sounds, no organomegaly, no rigid, no scaphoid, soft, no splenomegaly, no tenderness, no umbilical hernia, no ventral hernia - Integumentary Integumentary: Large mass in the right groin, less tender, no cyanotic, no decreased turgor, no flushed, no jaundiced, normal, no normal turgor, pale, rash , no ulcer - Neurologic Neurologic: CNII-XII intact - Musculoskeletal Musculoskeletal: gait normal, generalized weakness, strength equal bilaterally, no right sided weakness, no left sided weakness - Psychiatric Psychiatric: A&O x's 3, appropriate affect, no intact judgment & insight - Labs CBC & Chem 7: 12/06/16 06:04 12/06/16 06:04 Labs: Abnormal Lab Results - Last 24 Hours (Table) 12/05/16 12/05/16 12/05/16 Range/Units 10:29 11:38 13:47 RBC (3.80-5.40) m/uL Hgb (11.4-16.0) gm/dL Hct (34.0-46.0) % BUN (7-17) mg/dL Creatinine (0.52-1.04) mg/dL POC Glucose (mg/dL) 178 H 173 H 201 H (75-99) mg/dL Total Protein (6.3-8.2) g/dL Albumin (3.5-5.0) g/dL 12/05/16 12/05/16 12/06/16 Range/Units 16:35 20:56 06:04 RBC (3.80-5.40) m/uL Hgb (11.4-16.0) gm/dL Hct (34.0-46.0) % BUN 37 H (7-17) mg/dL Creatinine 2.28 H (0.52-1.04) mg/dL POC Glucose (mg/dL) 174 H 178 H (75-99) mg/dL Total Protein 5.2 L (6.3-8.2) g/dL Albumin 2.8 L (3.5-5.0) g/dL 12/06/16 Range/Units 06:04 RBC 2.79 L (3.80-5.40) m/uL Hgb 8.1 L (11.4-16.0) gm/dL Hct 25.5 L (34.0-46.0) % BUN (7-17) mg/dL Creatinine (0.52-1.04) mg/dL POC Glucose (mg/dL) (75-99) mg/dL Total Protein (6.3-8.2) g/dL Albumin (3.5-5.0) g/dL Assessment and Plan Plan: Assessment and Plan Plan: 1 CAD: With multiple coronary artery disease patent lesion in the RCA with stent still open, had 2 more lesion 1 in the LAD and one in the circumflex which Dr. Ahmadi has done an angioplasty and stent placement successfully. 2. Right common femoral hematoma and pseudoaneurysm with possible early sepsis and wound infection developing. Dr. Ybarra on consult. Plan for thrombin injection of the right femoral pseudoaneurysm. Status post repair of pseudoaneurysm right groin. Blood cultures, urine culture, urinalysis, chest x- ray and ID consult added. Continue Ceftaroline. 3. post [place] with acute coronary syndrome: Patient has done well since her last admission. 4. Acute kidney injury on chronic kidney disease stage III post kidney transplant, patient is still seen nephrology regular basis which will be followed daily with repeat BUN/creatinine. Sodium bicarb, Lasix 60 IV every 12 hours 5. diabetes mellitus type 2: Patient is on insulin pump continue insulin pump watch her Accu-Chek with sliding scales coverage. 6. hyperlipidemia: On Lipitor 20 mg daily. 7. GERD: Patient is on Zantac or H2 jai and doing well. 8. post renal transplant: Patient to continue CellCept 750 mg orally twice a day along with Prograf 2 mg twice a day and prednisone 5 mg daily. 9. hypertension: Continue atenolol 100 mg daily. Norvasc was discontinued. 10. Urinary retention for which patient required straight cath. Flomax added. 11. Acute blood loss anemia status post transfusion and anemia of chronic kidney disease. On Aranesp. 12. Continue physical therapy as indicated.
--- NOTE | 2016-12-06 10:05 | PN ---
Patient is seen for follow-up for acute kidney injury. She has been slowly improving. ( ) Yesterday the Lasix was decreased. ( ) This morning, patient states that her legs are quite painful and she has been increased edema. Her face also looks more puffy today. Serum creatinine continues to decrease. It is now down to 2.28 mg/dL. On examination, blood pressure 185/83, heart rate 90 per minute. O2 sats 91 on 4 liters nasal cannula. Examination of the heart S1 and S2. Examination of the lungs: Bilateral crackles are heard. ABDOMEN: Soft, nontender, obese. Examination of lower extremities shows significant increase in edema to about 3+ bilaterally. Labs show sodium 139, potassium 4.3. Hemoglobin 8.1, creatinine 2.28. ASSESSMENT: 1. Acute kidney injury, acute tubular necrosis, currently nonoliguric and improving. 2. Severe fluid overload, which is worse today as compared to yesterday. I will increase the Lasix to 60 IV q.12 hours for now, and this should be okay as patient's renal function continues to improve. We will repeat labs in a.m. 3. Status post cardiac catheterization and coronary stent placement. 4. Status post living-unrelated renal transplant 2004 at [facility] with baseline creatinine about 1.6 mg/dL. 5. Anemia, status post packed RBCs with stable hemoglobin, maintained on ( ) status post IV iron as well. PLAN: Increase Lasix. Repeat labs in a.m.
--- NOTE | 2016-12-06 10:26 | PN ---
Bharati is a 66-year-old lady who was admitted to hospital following angioplasty and large pseudoaneurysm requiring thrombin injection. Her post angioplasty course had been complicated with the renal insufficiency. The patient is known kidney transplantation. She continues to be an IV Lasix and has episodes of shortness of breath. She had an episode of shortness of breath this morning and I am going to get chest x-ray done on her. Nephrology is also following her. On exam, patient is afebrile. Heart rate is 90 was no blood pressure is 180/83. Respiratory rate is 18. Chest exam reveals diminished air entry at the bases. I do not hear any crackles or rhonchi. Heart exam reveals first and second heart sounds, a systolic murmur in the left lower sternal border. ABDOMEN: Soft. Exam of the extremities did not reveal any edema. Peripheral pulses are felt. Blood pressure is poorly controlled. ASSESSMENT: 1. Coronary artery disease, status post angioplasty. 2. Pseudoaneurysm, status post repair. 3. Shortness of breath, probably secondary to fluid overload. 4. Renal insufficiency. 5. Uncontrolled hypertension. PLAN: I am going to continue the atenolol, Plavix, aspirin, Lasix and increase the dose of hydralazine to 50 t.i.d. to better control her blood pressures.
[2016-12-06] MEDS: oxyCODONE-APAP 7.5-325MG 1 EACH TAB PO PRN ×2 (10:29→20:21)
[2016-12-06 11:58] LABS: Glucose,Whole Blood 178 mg/dL (75-99)
[2016-12-06] MEDS: CHOLECALCIFEROL 1,000 UNIT TAB PO SCH (12:51)
[2016-12-06] MEDS: hydrALAZINE HCL 50 MG TAB PO SCH ×3 (12:51→20:20)
--- NOTE | 2016-12-06 15:03 | P.PN ---
Progress Note - Text events noted s/p repair of right femoral pseudoaneurysm POD # 10 AF VSS EXTR; right groin; mild erythema around inferior portion of incision with superficial skin necrosis measuring approximately 1cm on inferior portion of the incision; no significant evidence of infection; resolving contusion in proximal thigh; both legs viable and warm with capillary refill of 3 seconds Labs; reviewed impression/plan 1. s/p right femoral pseudoaneurysm repair continue dressing changes as ordered leave sutures in one more week f/u office on 12/14/2016
[2016-12-06 16:44] LABS: Glucose,Whole Blood 143 mg/dL (75-99)
[2016-12-06] MEDS: ALPRAZolam 0.5 MG TAB PO PRN (20:21)
[2016-12-06 20:42] LABS: Glucose,Whole Blood 164 mg/dL (75-99)
[2016-12-07 06:04] LABS: Glucose,Whole Blood 89 mg/dL (75-99)
[2016-12-07 06:12] LABS: Basophils % (A) 0 %; CH 29.3; CHCM 31.1; Eosinophils # (A) 0.3 k/uL (0-0.7); Eosinophils % (A) 3 %; HCT 25.4 % (34.0-46.0); HDW 2.95; HGB 7.8 gm/dL (11.4-16.0); Hypochromasia Moderate; Luc # (Auto) 0.25; Luc % (Auto) 3; Lymphocytes # (A) 1.1 k/uL (1.0-4.8); Lymphocytes % (A) 14 %; MCH 29.2 pg (25.0-35.0); MCHC 30.8 g/dL (31.0-37.0); MCV 94.8 fL (80.0-100.0); Mean Platelet Volume 6.6; Monocytes # (A) 0.6 k/uL (0-1.0); Monocytes % (A) 8 %; Neutrophils # (A) 5.8 k/uL (1.3-7.7); Neutrophils % (A) 72 %; RBC 2.68 m/uL (3.80-5.40); RDW 14.6 % (11.5-15.5); WBC 8.2 k/uL (3.8-10.6); WBC (Perox) 8.42
[2016-12-07] MEDS: INSULIN LISPRO SQ SCH ×4 (06:25→22:08)
[2016-12-07 06:32] LABS: Calcium 8.9 mg/dL (8.4-10.2); Potassium 3.7 mmol/L (3.5-5.1); Total Bilirubin 0.6 mg/dL (0.2-1.3); Total Protein 5.1 g/dL (6.3-8.2)
[2016-12-07] MEDS: FERROUS SULFATE 325 MG TAB PO SCH ×2 (06:44→17:33)
[2016-12-07] MEDS: SODIUM BICARBONATE TAB 650 MG TAB PO SCH ×2 (07:47→20:15)
[2016-12-07] MEDS: TAMSULOSIN 0.4 MG CAP.ER.24H PO SCH (07:47)
[2016-12-07] MEDS: ASPIRIN 81 MG CHEW PO SCH (07:48)
[2016-12-07] MEDS: MYCOPHENOLATE MOFETIL 250 MG CAP PO SCH ×2 (07:48→20:15)
[2016-12-07] MEDS: CHOLECALCIFEROL 1,000 UNIT TAB PO SCH (07:48)
[2016-12-07] MEDS: ATORVASTATIN 80 MG TAB PO SCH (07:48)
[2016-12-07] MEDS: TACROLIMUS 1 MG CAP PO SCH ×2 (07:48→20:15)
[2016-12-07] MEDS: CLOPIDOGREL 75 MG TAB PO SCH (07:49)
[2016-12-07] MEDS: predniSONE 5 MG TAB PO SCH (07:49)
[2016-12-07] MEDS: ATENOLOL 50 MG TAB PO SCH (07:49)
[2016-12-07] MEDS: hydrALAZINE HCL 50 MG TAB PO SCH ×4 (07:49→20:15)
[2016-12-07] MEDS: FUROSEMIDE 10 MG/ML 10 ML VIAL IV SCH (07:50)
[2016-12-07] MEDS: RANITIDINE SYRUP 150 MG/10 ML CUP PO SCH (07:50)
[2016-12-07] MEDS: LACTULOSE 20 GM/30 ML CUP PO SCH ×3 (07:50→22:05)
[2016-12-07] MEDS: CEFTAROLINE FOSAMIL 300 MG in SODIUM CHLORIDE 0.9% 250 ML IVPB SCH (07:51)
[2016-12-07] MEDS: INSULIN GLARGINE 100 UNIT/ML 10 ML VIAL SQ SCH (07:51)
[2016-12-07] MEDS: LEVALBUTEROL NEB 1.25 MG/3 ML AMP INHALATION SCH ×4 (09:57→20:40)
[2016-12-07] MEDS ORDERED: FUROSEMIDE 250 MG in SODIUM CHLORIDE 0.9% 225 ML IV ONE (11:00)
--- NOTE | 2016-12-07 11:51 | XR ---
EXAMINATION TYPE: XR chest 1V portable DATE OF EXAM: 12/07/2016 11:46 AM HISTORY: Shortness of breath. COMPARISON: December 06, 2016 TECHNIQUE: Single view of the chest is submitted. FINDINGS: Demonstrated are scattered senescent parenchymal change. Continued cardiomegaly, pulmonary venous congestion and scattered infiltrates. Small effusions persis t. Hilar and mediastinal structures are within normal limits. Degenerative changes are seen of the dorsal spine. IMPRESSION: 1. Probable stable congestive failure although infiltrates of other etiology not excluded.
[2016-12-07 11:53] LABS: Glucose,Whole Blood 202 mg/dL (75-99)
--- NOTE | 2016-12-07 12:11 | PN ---
This is a 66-year-old lady with history of coronary artery disease, status post angioplasty, status post pseudoaneurysm repair, chronic renal insufficiency, hypertension, insulin-requiring diabetes that I started seeing from Wednesday. She became somewhat short of breath yesterday. A chest x-ray revealed mild pulmonary congestion, was treated with IV Lasix, continues to be more short of breath and is fluid overload. Her baseline weight was around 97 kg and over the last 2 weeks, she gained weight she is around 102.3 kg at the moment. Patient had been started on Lasix drip by Dr. Hussein. Will wait and see how she responds. On exam, she appears somewhat short of breath at rest. Heart rate is 80 beats per minute, afebrile. Blood pressure is 133/66, O2 sat is 91% on 3 L. Chest exam reveals diminished air entry at the bases. Heart exam reveals first and second heart sounds. No gallop. Exam of the extremities did not reveal any edema. Peripheral pulses are palpable. Labs show a hemoglobin of 7.8, platelet count is 340, potassium is 3.7. Creatinine is 2.4. An echocardiogram on her last month showed normal LV systolic function. ASSESSMENT: 1. Shortness of breath secondary to fluid overload. This could either be due to her underlying renal failure or diastolic heart failure. 2. Coronary artery disease, status post angioplasty. PLAN: Will treat her with IV Lasix drip at this time. She is on aspirin, Tenormin, Lipitor. I will obtain a chest x-ray. I will obtain a 2-D echo. I will continue the Plavix. Will obtain an EKG on her.
--- NOTE | 2016-12-07 14:11 | CDI ---
In responding to this query, please exercise your independent professional judgment. The [facility] Coding Staff and Clinical Documentation Specialists appreciate your assistance in clarifying documentation, maintaining compliance with coding guidelines, accurately documenting patients condition and capturing severity of illness. The fact that a question is asked does not imply that any particular answer is desired or expected. Communication forms are a method of clarifying documentation and are not made part of the Legal Health Record. Thank you in advance for your clarification. Last Revision, December 2015 [address] [place] [address] Documentation Clarification Form Date: 12/07/2016 1:53:00 PM From: Jihan Garg RN, CCDS Admit Date: 11/26/2016 1:43:00 PM Patient Name: Bharati Red Visit Number: [id number] Dr. Claudia Tyler/ Lainey Cameron CNP Fluid overload is documented in the progress notes . History/Risk Factors: NOELLE on CKD stage 3, acute blood loss anemia, CAD with stent to RCA this admission Clinical Indicators: 12/07 cardiology Progress Note: "This could either be due to her underlying renal failure or diastolic heart failure." 12/07/16 Chest X Ray: probable stable CHF although infiltrates of other etiology not excluded Treatment: Lasix Gtt at 5 ml/hr Consults: Cardiology, nephrology In your professional opinion, can you please clarify the acuity and type of CHF if known? Acute Chronic Acute on Chronic AND Systolic Diastolic Systolic and Diastolic Cor Pulmonale (Right Sided HF w/ Pulmonary HTN) Unable to determine Other, please specify If known, please specify if Heart Failure is due to: Hypertension Rheumatic Fever Please document in your progress notes and discharge summary in order to capture severity of illness and risk of mortality. Include clinical findings that support your diagnosis. FYI: Press F11 to launch patient chart. Place X here if this finding has no clinical significance, is not applicable or if you are not able to provide any additional documentation. add dx" Acute on chronic diastolic CHF" Please see discharge summary and other documents. MTDD
--- NOTE | 2016-12-07 14:13 | P.PN ---
Subjective 66-year-old female one of my office patient of known for long time was hospitalized in November 05 of November 10, 2016 for acute myocardial infarction with acute coronary syndrome ended up going for angiogram showed significant stenosis in the LAD and circumflex. Patient kidney function had declined slightly ended up going home after being hydrated and watch her kidney function was seen in the office and see Dr. Ahmadi and patient brought to the hospital on 11/23/2016 for an angioplasty, procedure was done successfully and patient is resting comfortably with no complaint, nephrology consultation was requested and BUN/creatinine to be done an daily basis for the next 2 days. Patient will be admitted for 48 hours. 11/25: Hemoglobin 7.1, BUN 36 and creatinine 1.9. She is status post PTCA and stenting of a complex torturous mid circumflex coronary artery. Nephrology is following. She is continued on Mucomyst and scheduled for IV Ferrlecit 3 days. Patient has developed a right common femoral hematoma and pseudoaneurysm. Dr. Ybarra has evaluated the patient and she is a candidate for thrombin injection of the right femoral pseudoaneurysm. 11/26: Hemoglobin 6.5, BUN 41 and creatinine 2.26. She is continued on Ferrlecit and scheduled for transfusion 1 unit packed RBCs. IV fluids at 50 mL per hour. Patient will complete Mucomyst today. Repeat Ultrasound of the groin today. Bladder scan as needed. 11/27: Yesterday patient underwent repair of perforation of a right profunda femoris artery and evacuation of right groin hematoma with Dr. Ybarra and was subsequently admitted to the ICU. She has a Rosario catheter in place and urine output has been adequate. Rosario will be discontinued this morning. She states she has much decreased pain to the right groin area. She denies any chest pain , shortness of breath. PT is working with her today. Patient is receiving her third dose of Ferrlecit. She has completed her course of Mucomyst. IV fluids at 50 mL per hour. Repeat BUN 40 and creatinine 2.3. Repeat chest x-ray shows borderline cardiomegaly and interstitial prominence which may be chronic. Correlate to exclude mild CHF. 11/28: Patient states that the groin site remains better in regards to pain. Site is warm to the touch. She did have a temperature of 101.2 this morning blood cultures, urinalysis urine culture and chest x-ray have been ordered. Patient does not have a cough or sputum production. She is complaining of feeling achy all over. She has minimal urine output Rosario was removed last night. Morning blood sugar was 95 and patient is on insulin pump. BUN 40 with creatinine 2.7 and hemoglobin 8.4. Infectious disease consult added. Patient is complaining of sore throat for which Cepacol lozenges added. 11/29: Patient is more comfortable able to ambulate out of bed with help her hemoglobin dropped down slightly but she is feeling better she was transfer out of the intensive care unit yesterday. No need for blood transfusion yet but hemoglobin is below 8 we'll wait till tomorrow repeat another CBC if it remain in the mid 7 transfusion be done. Expectation for discharge hopefully over the next 48 hours creatinine has plateau over the last 2 days with no significant declining kidney function at this point 11/30: Ultrasound venous Doppler duplex of the right lower extremity is negative for DVT. Patient complains of nausea this morning for which Zofran has been added. She was given Lasix 60 mg IV 1. She states her breathing status is okay. Repeat BUN 40 and creatinine 2.8, potassium 4.1. Hemoglobin 7.8. She is currently on Ceftaroline and followed by Dr. Rendon. 12/01: BUN today is [address] Rendon as recommended most likely doxycycline at the time of discharge.she is status post Lasix 1 dose today. She is on fluid restriction.she hasn't some problem with urinary retention for which she was straight cathed.nephrology has started Flomax. 12/02: BUN 42 and creatinine 2.79. Hemoglobin 7.4. Fluid balance is -950. Weight is same from yesterday. She states she feels puffy. No lasix today. 12/03: Nephrology has continue patient on IV Lasix. Norvasc discontinued as patient's blood pressure is on the low side. She is continued on sodium bicarb. Kidney function continues to improve with BUN 39 creatinine 2.62. Hemoglobin is stable at 7.7. Blood sugars running 110-163. 12/04: Bun 39 and creatinine 2.6. Good urine output. She is continued on Lasix 40 mg IV twice daily. Weight is slightly up today. Aranesp was started. 12/05: Patient is sitting up in chair at her was at the bedside, the patient continues to have significant anasarca all over her body with significant bruising to the right upper extremity yet her creatinine is about the same 2.6. 12/06: Patient is complaining of significant shortness of breath, as well as significant swelling in both lower extremities and upper extremities as a matter fact she could not even walk a few steps without getting extremely short of breath, she was given Lasix 60 minute gram IV push 1 this will be repeated again in 12 hours. 12/07: Repeat hemoglobin 7.8, BUN [address] Ybarra recommending sutures out in one week and follow-up in the office on December 14. Patient is having worsening fluid overload, shortness of breath and lethargy and started on lasix drip. IV antibiotics changed to oral. Protein supplement increased to three times daily. She denies any chest pain. Objective - Vital Signs Vital signs: Vital Signs Temp 97.9 F 12/07/16 08:00 Pulse 74 12/07/16 08:00 Resp 22 12/07/16 08:00 BP 139/72 12/07/16 08:00 Pulse Ox 91 L 12/07/16 08:00 Intake & Output 12/06/16 12/07/16 12/07/16 18:59 06:59 18:59 Intake Total 60 710 Output Total 1301 803 Balance -1241 -93 Weight 102.3 kg Intake: IV 40 0.9 NS at 20 ml/hr 40 Intake, IV Titration 250 Amount Ceftaroline Fosamil 300 250 mg In Sodium Chloride 0.9 % 250 ml @ 250 mls/hr IVPB Q12HR [facility] Rx#: [id number] Oral 60 420 Output: Urine 1300 800 Straight 400 Uretheral (Rosario) 1300 Stool 1 3 Other: Voiding Method Indwelling Catheter Bedside Commode Bedside Commode # Voids 1 # Bowel Movements 1 - Exam General appearance: no average body habitus, cooperative, no disheveled, no mild distress, no morbidly obese, no acute distress, no obese, no severe distress, no thin - EENT Eyes: no abnormal pupil, no anicteric sclerae, no disc margins sharp, no edentulous, no EOMI, no PERRLA, no fundus normal, no photophobia, no dentition normal, no poor dentition, no ptosis, no scleral icterus, normal appearance ENT: no hard of hearing, no hearing grossly normal, no NA/AT, normal oropharynx , no other, no pharyngeal erythema, no thrush, no tonsillar exudates, no tonsillar swelling Ears: bilateral: normal - Neck Neck: no lymphadenopathy, normal ROM, no other, no rigidity, no stridor, no thyromegaly Carotids: bilateral: upstroke normal Thyroid: bilateral: normal size - Respiratory Respiratory: bilateral: CTA, diminished - Cardiovascular Rhythm: regular Heart sounds: normal: S1, S2 Abnormal Heart Sounds: systolic murmur - Gastrointestinal General gastrointestinal: no absent bowel sounds, decreased bowel sounds, no distended, no hepatomegaly, no hyperactive bowel sounds, normal bowel sounds, no organomegaly, no rigid, no scaphoid, soft, no splenomegaly, no tenderness, no umbilical hernia, no ventral hernia - Integumentary Integumentary: Large mass in the right groin, less tender, no cyanotic, no decreased turgor, no flushed, no jaundiced, normal, no normal turgor, pale, rash , no ulcer - Neurologic Neurologic: CNII-XII intact - Musculoskeletal Musculoskeletal: gait normal, generalized weakness, strength equal bilaterally, no right sided weakness, no left sided weakness - Psychiatric Psychiatric: A&O x's 3, appropriate affect, no intact judgment & insight - Labs CBC & Chem 7: 12/07/16 05:20 12/07/16 05:20 Labs: Abnormal Lab Results - Last 24 Hours (Table) 12/06/16 12/06/16 12/06/16 Range/Units 11:35 16:43 20:40 RBC (3.80-5.40) m/uL Hgb (11.4-16.0) gm/dL Hct (34.0-46.0) % MCHC (31.0-37.0) g/dL BUN (7-17) mg/dL Creatinine (0.52-1.04) mg/dL Glucose (74-99) mg/dL POC Glucose (mg/dL) 178 H 143 H 164 H (75-99) mg/dL AST (14-36) U/L Total Protein (6.3-8.2) g/dL Albumin (3.5-5.0) g/dL 12/07/16 12/07/16 Range/Units 05:20 05:20 RBC 2.68 L (3.80-5.40) m/uL Hgb 7.8 L (11.4-16.0) gm/dL Hct 25.4 L (34.0-46.0) % MCHC 30.8 L (31.0-37.0) g/dL BUN 39 H (7-17) mg/dL Creatinine 2.42 H (0.52-1.04) mg/dL Glucose 64 L (74-99) mg/dL POC Glucose (mg/dL) (75-99) mg/dL AST 12 L (14-36) U/L Total Protein 5.1 L (6.3-8.2) g/dL Albumin 2.7 L (3.5-5.0) g/dL Assessment and Plan Plan: 1 CAD: With multiple coronary artery disease patent lesion in the RCA with stent still open, had 2 more lesion 1 in the LAD and one in the circumflex which Dr. Ahmadi has done an angioplasty and stent placement successfully. 2. Right common femoral hematoma and pseudoaneurysm with early sepsis and cellulitis with possible wound infection developing. Dr. Ybarra on consult. Plan for thrombin injection of the right femoral pseudoaneurysm. Status post repair of pseudoaneurysm right groin. Blood cultures, urine culture, urinalysis , chest x-ray and ID consult added. Ceftaroline changed to oral doxycycline. 3. post [place] with acute coronary syndrome: Patient has done well since her last admission. 4. Acute kidney injury on chronic kidney disease stage III post kidney transplant, patient is still seen nephrology regular basis which will be followed daily with repeat BUN/creatinine. Sodium bicarb, Lasix drip. Protein supplement increased to 3 times daily. 5. diabetes mellitus type 2: Patient is on insulin pump continue insulin pump watch her Accu-Chek with sliding scales coverage. 6. hyperlipidemia: On Lipitor 20 mg daily. 7. GERD: Patient is on Zantac or H2 jai and doing well. 8. post renal transplant: Patient to continue CellCept 750 mg orally twice a day along with Prograf 2 mg twice a day and prednisone 5 mg daily. 9. hypertension: Continue atenolol 100 mg daily. Norvasc was discontinued. 10. Urinary retention for which patient required straight cath. Flomax added. 11. Acute blood loss anemia status post transfusion and anemia of chronic kidney disease. On Aranesp. CODE STATUS: Full code. Discharge plan: Return home Impression and plan of care have been directed as dictated by the signing physician. Lainey Cameron nurse practitioner acting as scribe for signing physician. Time with Patient: Greater than 30
--- NOTE | 2016-12-07 16:25 | US ---
EXAMINATION TYPE: US chest DATE OF EXAM: 12/07/2016 4:15 PM COMPARISON: Chest x-ray from earlier today CLINICAL HISTORY: pleural effusion . Abnormal chest x-ray EXAM MEASUREMENTS: Right Pleural Effusion fluid pocket: 12.5 cm Right skin to fluid thickness: 4.2 cm Left Pleural Effusion fluid pocket: 9.3 cm Left skin to fluid thickness: 3.2 cm Right side marked for possible thoracentesis outside the dept. Left side marked for possible thoracentesis outside the dept. Pulmonologists are able to review the images in the patient?s EMR. TECHNOLOGIST IMPRESSION: Bilateral pleural effusions with markings done Moderate-sized bilateral pleural effusions are identified on ultrasound images saved. Overlying skin is marked for possible thoracentesis outside the department. IMPRESSIONS: As above.
[2016-12-07 17:00] LABS: Glucose,Whole Blood 144 mg/dL (75-99)
--- NOTE | 2016-12-07 17:50 | P.PN ---
Subjective Principal diagnosis: Coronary artery disease 66-year-old female who has a known history of coronary artery disease was hospitalized in early November 2016 with an acute myocardial infarction. Evidence of Stenosis of Her Left Anterior Descending Artery in Her Circumflex. With a History of Renal Transplantation It Was Noted That Her Renal Function Had Worsened a Bit. Because She Was Stable Was Plan for Readmission for Her Angioplasty. She then Was Readmitted and Angioplasty Occurred on 11/23/2016. She Is Doing Modestly Well However Developed Difficulty with Pain to Her Right Groin. There Is Evidence of a Pseudoaneurysm. She's Been Taking to the Operating Room and the aneurysm has Been Repaired. She then started Having Difficulties with Increasing Tenderness Erythema and Some Scant Serous Drainage. Some Scant Bloody Drainage Inferior to the Incision from Her Prior Dressing. She then Developed a Temperature 101.2 which fortunately has resolved Feeling much better today. Is still having difficulty with volume overload but her creatinine is improved, furosemide drip is started Objective - Vital Signs Vital signs: Vital Signs Temp 97.9 F 12/07/16 15:46 Pulse 76 12/07/16 16:39 Resp 20 12/07/16 15:46 BP 139/64 12/07/16 15:46 Pulse Ox 93 L 12/07/16 15:46 Intake & Output 12/06/16 12/07/16 12/07/16 18:59 06:59 18:59 Intake Total 60 710 100 Output Total 1301 803 850 Balance -1241 -93 -750 Weight 102.3 kg Intake: IV 40 0.9 NS at 20 ml/hr 40 Intake, IV Titration 250 Amount Ceftaroline Fosamil 300 250 mg In Sodium Chloride 0.9 % 250 ml @ 250 mls/hr IVPB Q12HR [facility] Rx#: [id number] Oral 60 420 100 Output: Urine 1300 800 850 Straight 400 Uretheral (Rosario) 1300 Stool 1 3 Other: Voiding Method Indwelling Catheter Bedside Commode Indwelling Catheter # Voids 1 # Bowel Movements 1 - Exam pleasant 66 -year-old woman who issitting up in the chair. The exertion made her feel somewhat HEENT: Anicteric conjunctiva are pink and moist nasal mucosa grossly intact without significant lesions, there is no thrush. Neck: The neck is supple without significant lymphadenopathy or thyromegaly. Lungs: Symmetrical air entry. Bibasilar crackles are heard. No kurt bronchial sounds. Heart: Irregular with an audible S1 and S2 soft S4 no murmur click or rub PMI was nondisplaced Abdomen: obese,Positive bowel sounds soft and nontender without palpable masses or organomegaly. There was no guarding or rebound. Extremities: The upper extremities have excellent pulses they are symmetric, no significant petechiae or telangiectasia. No splinter hemorrhages were noted. Lower extremities evidence of generalized edema. Left lower extremities hasbeen abnormalities. Neurologic she was as the recent surgical intervention to the right groin. Surgical incision is intact. There is a scant amount of drainage on the dressing. Nothing is expressible. She is a small tape injury was some bleeding it's distal on the thigh. There is some mild surrounding erythema. It is somewhat tender to touch. But not exquisitely so. No odor is noted. There is no ascending erythema that is noted there is minimal area of discoloration to the staple line is somewhat hyperemic with concerns of possible early superficial skin necrosis has not worsened looks extremity edema persists Neuro: Awake alert oriented to person place and time. There are no acute new gross focal sensory motor deficits. - Labs CBC & Chem 7: 12/07/16 05:20 12/07/16 05:20 Labs: Abnormal Lab Results - Last 24 Hours (Table) 12/06/16 12/07/16 12/07/16 Range/Units 20:40 05:20 05:20 RBC 2.68 L (3.80-5.40) m/uL Hgb 7.8 L (11.4-16.0) gm/dL Hct 25.4 L (34.0-46.0) % MCHC 30.8 L (31.0-37.0) g/dL BUN 39 H (7-17) mg/dL Creatinine 2.42 H (0.52-1.04) mg/dL Glucose 64 L (74-99) mg/dL POC Glucose (mg/dL) 164 H (75-99) mg/dL Iron (37-170) ug/dL TIBC (265-497) ug/dL % Saturation (20-50) % AST 12 L (14-36) U/L Total Protein 5.1 L (6.3-8.2) g/dL Albumin 2.7 L (3.5-5.0) g/dL 12/07/16 12/07/1612/07/17 Range/Units 05:20 11:50 16:53 RBC (3.80-5.40) m/uL Hgb (11.4-16.0) gm/dL Hct (34.0-46.0) % MCHC (31.0-37.0) g/dL BUN (7-17) mg/dL Creatinine (0.52-1.04) mg/dL Glucose (74-99) mg/dL POC Glucose (mg/dL) 202 H 144 H (75-99) mg/dL Iron 16 L (37-170) ug/dL TIBC 199 L (265-497) ug/dL % Saturation 8.0 L (20-50) % AST (14-36) U/L Total Protein (6.3-8.2) g/dL Albumin (3.5-5.0) g/dL Laboratory Results WBC 8.2 k/uL (3.8-10.6) 12/07/16 05:20 RBC 2.68 m/uL (3.80-5.40) L 12/07/16 05:20 Hgb 7.8 gm/dL (11.4-16.0) L 12/07/16 05:20 Hct 25.4 % (34.0-46.0) L 12/07/16 05:20 MCV 94.8 fL (80.0-100.0) 12/07/16 05:20 MCH 29.2 pg (25.0-35.0) 12/07/16 05:20 MCHC 30.8 g/dL (31.0-37.0) L 12/07/16 05:20 RDW 14.6 % (11.5-15.5) 12/07/16 05:20 Plt Count 340 k/uL (150-450) 12/07/16 05:20 Neutrophils % 72 % 12/07/16 05:20 Lymphocytes % 14 % 12/07/16 05:20 Monocytes % 8 % 12/07/16 05:20 Eosinophils % 3 % 12/07/16 05:20 Basophils % 0 % 12/07/16 05:20 Neutrophils # 5.8 k/uL (1.3-7.7) 12/07/16 05:20 Lymphocytes # 1.1 k/uL (1.0-4.8) 12/07/16 05:20 Monocytes # 0.6 k/uL (0-1.0) 12/07/16 05:20 Eosinophils # 0.3 k/uL (0-0.7) 12/07/16 05:20 Basophils # 0.0 k/uL (0-0.2) 12/07/16 05:20 Hypochromasia Moderate 12/07/16 05:20 PT 11.1 sec (9.0-12.0) 11/27/16 04:46 INR 1.1 (<1.1) 11/27/16 04:46 Sodium 138 mmol/L (137-145) 12/07/16 05:20 Potassium 3.7 mmol/L (3.5-5.1) 12/07/16 05:20 Chloride 101 mmol/L (98-107) 12/07/16 05:20 Carbon Dioxide 27 mmol/L (22-30) 12/07/16 05:20 Anion Gap 10 mmol/L 12/07/16 05:20 BUN 39 mg/dL (7-17) H 12/07/16 05:20 Creatinine 2.42 mg/dL (0.52-1.04) H 12/07/16 05:20 Est GFR (MDRD) Af Amer 24 (>60 ml/min/1.73 sqM) 12/07/16 05:20 Est GFR (MDRD) Non-Af 20 (>60 ml/min/1.73 sqM) 12/07/16 05:20 Glucose 64 mg/dL (74-99) L 12/07/16 05:20 POC Glucose (mg/dL) 144 mg/dL (75-99) H 12/07/16 16:53 POC Glu [employer] Aleta Worrell 12/07/16 16:[address] Glu mg/dL 154 mg/dL 11/27/16 04:46 Hemoglobin A1c 7.0 % (4.2-6.1) H 11/27/16 04:46 Osmolality 275 mosm/kg (280-301) L 11/29/16 06:12 Calcium 8.9 mg/dL (8.4-10.2) 12/07/16 05:20 Phosphorus 4.8 mg/dL (2.5-4.5) H 11/27/16 04:46 Magnesium 1.8 mg/dL (1.6-2.3) 12/03/16 06:24 Iron 16 ug/dL (37-170) L 12/07/16 05:20 TIBC 199 ug/dL (265-497) L 12/07/16 05:20 % Saturation 8.0 % (20-50) L 12/07/16 05:20 Ferritin 168 ng/mL (11-264) 11/24/16 07:48 Total Bilirubin 0.6 mg/dL (0.2-1.3) 12/07/16 05:20 AST 12 U/L (14-36) L 12/07/16 05:20 ALT 28 U/L (9-52) 12/07/16 05:20 Alkaline Phosphatase 62 U/L (38-126) 12/07/16 05:20 Total Protein 5.1 g/dL (6.3-8.2) L 12/07/16 05:20 Albumin 2.7 g/dL (3.5-5.0) L 12/07/16 05:20 Urine Color Yellow 11/28/16 09:55 Urine Appearance Clear (Clear) 11/28/16 09:55 Urine pH 5.5 (5.0-8.0) 11/28/16 09:55 Ur Specific [place] 1.010 (1.001-1.035) 11/28/16 09:55 Urine Protein 2+ (Negative) H 11/28/16 09:55 Urine Glucose (UA) Negative (Negative) 11/28/16 09:55 Urine Ketones Negative (Negative) 11/28/16 09:55 Urine Blood Negative (Negative) 11/28/16 09:55 Urine Nitrate Negative (Negative) 11/28/16 09:55 Urine Bilirubin Negative (Negative) 11/28/16 09:55 Urine Urobilinogen <2.0 mg/dL (<2.0) 11/28/16 09:55 Ur Leukocyte Esterase Negative (Negative) 11/28/16 09:55 Urine WBC 1 /hpf (0-5) 11/28/16 09:55 Urine Mucus Rare /hpf (None) H 11/28/16 09:55 Urine Osmolality 255 mosm/kg (50-1400) 11/29/16 11:26 Ur Random Sodium <5 mmol/L (30-90) L 11/29/16 11:26 Ur Random Potassium 23.4 mmol/L 11/29/16 11:26 Blood Type A Positive 11/25/16 12:02 Blood Type Confirm A Positive 11/24/16 20:03 Blood Type Recheck CABO Indicated 11/25/16 12:02 Antibody Screen NEGATIVE 11/25/16 12:02 Crossmatch See Detail 11/25/16 12:02 Spec Expiration Date 11/28/2016230111/25/16 12:02 Microbiology 11/28/16 10:03 Blood Blood Culture - Final No Growth after 144 hours 11/28/16 08:53 Blood Blood Culture - Final No Growth after 144 hours 11/28/16 09:55 Urine,Catheterized Urine Culture - Final Assessment and Plan (1) Fever Narrative/Plan: 66-year-old male presents to Hospital after her myocardial infarction earlier this year. She presented for her cardiac intervention and stenting was performed to the LAD and circumflex. She been doing well but was having some difficulty with her right groin. In that she developed a temperature 101.2. She has been seen by vascular surgery and repair of her pseudoaneurysms occurred. As evidence of some fever 101.2 erythema and tenderness to the site. With this is concerned infection at that area. She has a known history of vancomycin ALLERGY. With this Ceftaroline 400 mg IV piggyback every 12 hours as utilized. She give coverage for staph including MRSA as well as some routine gram-negative organisms such as E. coli that are in the groin. There is no drainage at this time for culture. Blood cultures are in process. And are negative so far She is symptomatically stable. With her ALLERGIES since she is improving as far as a cellulitis to the right leg Ceftaroline is discontinued and doxycycline 100 mg twice per day can be utilized She is feeling better except for shortness of breath which has been improving. Does have a history of renal transplantation. Her creatinine is up from her baseline of 1.6, 2.42 today. She is monitored closely from nephrology. IV lasix continues Receiving some diuresis for her significant volume overload. Rosario is in place to measure urinary output. Status: Acute (2) Pseudoaneurysm of right femoral artery Status: Acute (3) Cellulitis of right thigh Status: Acute
--- NOTE | 2016-12-07 18:47 | P.PN ---
Subjective Principal diagnosis: Acute congestive heart failure This is a very pleasant 66-year-old female patient who follows with Dr. Cordova as her primary care physician. She has a history of coronary artery disease with previous stent placements, diabetes mellitus utilizing insulin pump, gastroesophageal reflux disease, hyperlipidemia, hypertension, chronic renal disease stage III with previous renal transplant, chronic anemia. She had developed an acute myocardial infarction and was hospitalized from November 05 through the 2016. Her cardiac catheterization revealed significant stenosis in the LAD and circumflex. Her renal function had declined and she was discharged to home and brought back here 11/23/2016 for PTCA and stenting of a complex mid circumflex coronary artery. Following the procedure she had developed significant bleeding and a large hematoma that was eventually controlled. There was evidence of a pseudoaneurysm via ultrasound. She was seen and evaluated by Dr. Jesi dutta from vascular surgery. Thrombin injection was infused to the right femoral pseudoaneurysm on 11/25/2016. Follow-up ultrasound revealed failed thrombin injection and the patient had undergone a repair of perforation of a right profunda femoris artery and evacuation of the right groin hematoma yesterday. She is seen today in consultation for critical care management on 11/27/2016. Presently she is awake and alert in no acute distress. There is been no further bleeding noted from the right groin site. Dressing is dry and intact. His been hemodynamically stable. Not requiring any pressors. She did require 3 units of packed red blood cell infusions. Her current hemoglobin is 8.5. She is not on any pressors. She's been hemodynamically stable. Her chest x-ray does reveal some evidence of mild fluid volume overload. She is maintaining good O2 saturations in the mid 90s on 2 L/m per nasal cannula. Patient was seen above by Dr. Wilkinson on consultation and I was on 11/27/2016, he felt at the time that the patient had congestive heart failure. At any rate the patient is still inpatient, and recent chest x-ray showed worsening bilateral pleural effusions, echocardiogram showed large pleural effusion, and ultrasound of the chest showed bilateral pleural effusions right more so than left. Considering the findings I was asked to see the patient on consultation. Patient has mostly symptoms of shortness of breath, occasional cough, some wheezing, and today she was placed on a Lasix drip. I have a feeling that the patient will not require thoracentesis assuming she responds well to diuresis. Objective - Vital Signs Vital signs: Vital Signs Temp 97.9 F 12/07/16 15:46 Pulse 76 12/07/16 16:39 Resp 20 12/07/16 15:46 BP 139/64 12/07/16 15:46 Pulse Ox 93 L 12/07/16 15:46 Intake & Output 12/06/16 12/07/16 12/07/16 18:59 06:59 18:59 Intake Total 60 710 100 Output Total 1301 803 850 Balance -1241 -93 -750 Weight 102.3 kg Intake: IV 40 0.9 NS at 20 ml/hr 40 Intake, IV Titration 250 Amount Ceftaroline Fosamil 300 250 mg In Sodium Chloride 0.9 % 250 ml @ 250 mls/hr IVPB Q12HR [facility] Rx#: [id number] Oral 60 420 100 Output: Urine 1300 800 850 Straight 400 Uretheral (Rosario) 1300 Stool 1 3 Other: Voiding Method Indwelling Catheter Bedside Commode Indwelling Catheter # Voids 1 # Bowel Movements 1 1 - Exam GENERAL EXAM: Obese. Alert, comfortable in no apparent distress. HEAD: Normocephalic. EYES: Normal reaction of pupils, equal size. NOSE: Clear with pink turbinates. THROAT: No erythema or exudates. NECK: No masses, no JVD. CHEST: No chest wall deformity. LUNGS: Diminished breath sounds at the bases with some crackles CVS: S1 and S2 normal with no audible murmurs, regular rhythm. ABDOMEN: Obese, soft, normal bowel sounds, no guarding or rigidity. Extremities: Dressing to the right groin is dry and intact. There is trace peripheral edema. Peripheral pulses are intact. - Labs CBC & Chem 7: 12/07/16 05:20 12/07/16 05:20 Labs: Abnormal Lab Results - Last 24 Hours (Table) 12/06/16 12/07/16 12/07/16 Range/Units 20:40 05:20 05:20 RBC 2.68 L (3.80-5.40) m/uL Hgb 7.8 L (11.4-16.0) gm/dL Hct 25.4 L (34.0-46.0) % MCHC 30.8 L (31.0-37.0) g/dL BUN 39 H (7-17) mg/dL Creatinine 2.42 H (0.52-1.04) mg/dL Glucose 64 L (74-99) mg/dL POC Glucose (mg/dL) 164 H (75-99) mg/dL Iron (37-170) ug/dL TIBC (265-497) ug/dL % Saturation (20-50) % AST 12 L (14-36) U/L Total Protein 5.1 L (6.3-8.2) g/dL Albumin 2.7 L (3.5-5.0) g/dL 12/07/16 12/07/16 12/07/16 Range/Units 05:20 11:50 16:53 RBC (3.80-5.40) m/uL Hgb (11.4-16.0) gm/dL Hct (34.0-46.0) % MCHC (31.0-37.0) g/dL BUN (7-17) mg/dL Creatinine (0.52-1.04) mg/dL Glucose (74-99) mg/dL POC Glucose (mg/dL) 202 H 144 H (75-99) mg/dL Iron 16 L (37-170) ug/dL TIBC 199 L (265-497) ug/dL % Saturation 8.0 L (20-50) % AST (14-36) U/L Total Protein (6.3-8.2) g/dL Albumin (3.5-5.0) g/dL Assessment and Plan Plan: Impression: Acute congestive heart failure with bilateral pleural effusions Coronary artery disease status post stenting to the mid circumflex. #2 Right profunda femoris perforation with hematoma. Failed thrombin injection. Status post open repair. Postoperative day #1. #3 Postprocedure anemia requiring 3 units of packed red blood cells. Her hemoglobin 8.5. #4 Reveals history of coronary artery disease with stent placements. #5 Diabetes mellitus requiring insulin pump. #6 Chronic renal disease, stage III with previous renal transplant, maintained on CellCept and prednisone. #7 Hyperlipidemia. #8 Hypertension Recommendation: Agree with the Lasix drip, repeat chest x-ray in a.m., and if no improvement with aggressive diuresis, may have to consider holding Plavix for a few days and possibly consider thoracentesis. Time with Patient: Less than 30
--- NOTE | 2016-12-07 19:59 | PN ---
The patient is seen for follow-up for acute kidney injury on top of chronic kidney disease. She has been battling with fluid overload, particularly over the weekend. Lasix was increased to 60 mg every12 hours yesterday, but patient remains quite short of breath with significant edema in the lower extremities and she states that her legs are also painful she is not able to walk. She gets short of breath on walking very short distances. Yesterday we had to remove the Rosario catheter; however, patient continues to have urine retention. She had about 450 mL obtained on straight catheterization. Patient states she feels like voiding but is unable to go. Most likely Rosario catheter will be reinserted today. I will be starting her on a Lasix drip. So far renal function has been improving with serum creatinine down to 2.4 from 2.9 which was the peak. This is a transplant kidney with baseline creatinine of about 1.6 mg/dL. On examination, blood pressure is 139/72, heart rate 74 per minute. She is afebrile. Examination of the heart S1 and S2. Examination of the lungs, bilateral breath sounds are heard, bilateral crackles are heard. The abdomen is soft, obese, with abdominal wall edema. Examination of lower extremities shows bilateral extremities to be wrapped. Significant edema is noted in both feet and legs and lower extremities all the way up. STEEL WELDER exam is grossly intact. Labs show sodium 138, potassium 3.7, BUN 39, serum creatinine 2.43, hemoglobin 7.8 g/dL. ASSESSMENT: 1. Acute kidney injury, acute tubular necrosis, currently slowly improving. Serum creatinine is a bit higher from yesterday, but overall better. I will start the patient on Lasix drip and we will also check a Prograf level. 2. Severe fluid overload, start Lasix drip. 3. Status post cardiac catheterization and coronary stent placement. 4. Anemia, status post packed RBCs previously, currently maintained on Aranesp. 5. Status post living unrelated renal allograft at [facility] in 2004 with baseline creatinine around 1.6 mg/dL. PLAN: Repeat iron studies. Check Prograf level. Start Lasix drip. May need to reinsert Rosario catheter. Start Flomax. Repeat labs in the a.m. Avoid hypotension.
[2016-12-07] MEDS: DOXYCYCLINE 50 MG CAP PO SCH (20:15)
[2016-12-07] MEDS: ALPRAZolam 0.5 MG TAB PO PRN (20:15)
--- NOTE | 2016-12-07 20:39 | US ---
DATE OF SERVICE: 12/07/2016 The patient has a history of heart catheterization and pseudoaneurysm of the right common femoral artery. The patient had a PVR of the lower extremity. This PVR performed from popliteal artery down to the tibial vessel. There is trisphasic signal noted in the popliteal area and infrapopliteal arteries. Ankle brachial index of the posterior tibial artery on the right is 0.96 and dorsalis pedis is 1.18. Also there is a triphasic signal noted on the popliteal and infrapopliteal arteries. IMPRESSION: Trisphasic signal of the popliteal and infrapopliteal artery bilaterally.
[2016-12-07 21:16] LABS: Glucose,Whole Blood 136 mg/dL (75-99)
[2016-12-08] MEDS: oxyCODONE-APAP 7.5-325MG 1 EACH TAB PO PRN ×2 (00:37→21:20)
[2016-12-08 05:27] LABS: Glucose,Whole Blood 61 mg/dL (75-99)
[2016-12-08 05:41] LABS: Glucose,Whole Blood 67 mg/dL (75-99)
[2016-12-08 06:06] LABS: Glucose,Whole Blood 93 mg/dL (75-99)
[2016-12-08] MEDS: INSULIN LISPRO SQ SCH ×4 (06:09→21:08)
[2016-12-08] MEDS: FERROUS SULFATE 325 MG TAB PO SCH ×2 (06:10→17:15)
[2016-12-08 07:43] LABS: CH 29.5; CHCM 31.9; HCT 23.5 % (34.0-46.0); HDW 2.98; HGB 7.4 gm/dL (11.4-16.0); Hypochromasia Slight; MCH 29.2 pg (25.0-35.0); MCHC 31.4 g/dL (31.0-37.0); MCV 93.2 fL (80.0-100.0); Mean Platelet Volume 7.1; RBC 2.53 m/uL (3.80-5.40); RDW 14.6 % (11.5-15.5); WBC 8.8 k/uL (3.8-10.6)
[2016-12-08 08:23] LABS: Calcium 9.1 mg/dL (8.4-10.2)
[2016-12-08 08:29] LABS: Potassium 4.3 mmol/L (3.5-5.1)
[2016-12-08] MEDS: LEVALBUTEROL NEB 1.25 MG/3 ML AMP INHALATION SCH ×4 (08:36→20:32)
--- NOTE | 2016-12-08 09:34 | ECHOF ---
Referral Reason:dyspnea MEASUREMENTS -------- HEIGHT: 165.1 cm WEIGHT: 102.1 kg BP: 133/66 IVSd: 1.7 cm (0.6 - 1.1) LVIDd: 4.6 cm (3.9 - 5.3) LVPWd: 1.5 cm (0.6 - 1.1) IVSs: 2.1 cm LVIDs: 2.4 cm LVPWs: 1.9 cm Ao Diam: 3.2 cm (2.0 - 3.7) AV Cusp: 2.0 cm (1.5 - 2.6) LA Diam: 4.9 cm (2.7 - 3.8) MV EXCURSION: 8.200 mm (> 18.000) MV EF SLOPE: 58 mm/s (70 - 150) EPSS: 1.3 cm MV E Adair: 1.53 m/s MV DecT: 280 ms MV A [place]: 1.12 m/s MV E/A Ratio: 1.36 RAP: 5.00 mmHg RVSP: 40.84 mmHg FINDINGS -------- Sinus rhythm. This was a technically good study. There is severe concentric left ventricular hypertrophy. Overall left ventricular systolic function is normal with, an EF between 60 - 65 %. The right ventricle is normal in size and function. The left atrium is moderately dilated. The right atrium is normal in size. Aortic valve is trileaflet and is mildly thickened. The mitral valve leaflets are mildly thickened. Mild mitral annular calcification present. Mild mitral regurgitation is present. Mild tricuspid regurgitation present. There is mild pulmonary hypertension. The right ventricular systolic pressure, as measured by Doppler, is 40.84mmHg. Pulmonic valve appears structurally normal. The aortic root size is normal. Large Pleural Effusion. CONCLUSIONS -------- 1. Sinus rhythm. 2. Mild mitral annular calcification present. 3. Mild mitral regurgitation is present. 4. Mild tricuspid regurgitation present. 5. There is mild pulmonary hypertension. 6. The right ventricular systolic pressure, as measured by Doppler, is 40.84mmHg. 7. Pulmonic valve appears structurally normal. 8. The aortic root size is normal. 9. Large Pleural Effusion. 10. This was a technically good study. 11. There is severe concentric left ventricular hypertrophy. 12. Overall left ventricular systolic function is normal with, an EF between 60 - 65 %. 13. The right ventricle is normal in size and function. 14. The left atrium is moderately dilated. 15. The right atrium is normal in size. 16. Aortic valve is trileaflet and is mildly thickened. 17. The mitral valve leaflets are mildly thickened. SCAFFOLD WORKER: Miriam Uribe RDCS
[2016-12-08] MEDS: ASPIRIN 81 MG CHEW PO SCH (09:58)
[2016-12-08] MEDS: TAMSULOSIN 0.4 MG CAP.ER.24H PO SCH (09:58)
[2016-12-08] MEDS: ATENOLOL 50 MG TAB PO SCH (09:58)
[2016-12-08] MEDS: CLOPIDOGREL 75 MG TAB PO SCH (09:59)
[2016-12-08] MEDS: ATORVASTATIN 80 MG TAB PO SCH (09:59)
[2016-12-08] MEDS: hydrALAZINE HCL 50 MG TAB PO SCH ×4 (09:59→21:07)
[2016-12-08] MEDS: DOXYCYCLINE 50 MG CAP PO SCH ×2 (09:59→21:06)
[2016-12-08] MEDS: INSULIN GLARGINE 100 UNIT/ML 10 ML VIAL SQ SCH (10:00)
[2016-12-08] MEDS: LACTULOSE 20 GM/30 ML CUP PO SCH ×3 (10:01→21:14)
[2016-12-08] MEDS: MYCOPHENOLATE MOFETIL 250 MG CAP PO SCH ×2 (10:01→21:07)
[2016-12-08] MEDS: RANITIDINE SYRUP 150 MG/10 ML CUP PO SCH (10:02)
[2016-12-08] MEDS: SODIUM BICARBONATE TAB 650 MG TAB PO SCH ×2 (10:02→21:07)
[2016-12-08] MEDS: predniSONE 5 MG TAB PO SCH (10:02)
[2016-12-08] MEDS: TACROLIMUS 1 MG CAP PO SCH ×2 (10:03→21:07)
--- NOTE | 2016-12-08 10:49 | XR ---
EXAMINATION TYPE: XR chest 1V portable DATE OF EXAM: 12/08/2016 10:39 AM CLINICAL HISTORY: Difficulty breathing progress study. TECHNIQUE: Single AP portable upright view of the chest is obtained. COMPARISON: Chest x-ray from one day earlier FINDINGS: There is persistent small to moderate-sized bilateral pleural effusions and interstitial e waylon. No pneumothorax seen bilaterally. Cardiac blood size is stable and felt within normal limits. O sseous structures are intact. IMPRESSION: Overall stable findings, consider fluid overload state as there are small to moderate-s ized bilateral pleural effusions and interstitial edema all redemonstrated.
[2016-12-08 12:12] LABS: Glucose,Whole Blood 202 mg/dL (75-99)
[2016-12-08] MEDS: CHOLECALCIFEROL 1,000 UNIT TAB PO SCH (12:34)
--- NOTE | 2016-12-08 12:44 | PN ---
Bharati is a 66-year-old lady who underwent angioplasty following which had pseudoaneurysm. She is going through a slow recovery process, became fluid-overloaded and had to be started on Lasix drip. She developed pleural effusion, had postop anemia and is requiring blood transfusion, has chronic renal insufficiency and history of prior transplant. On exam, heart rate is 72 beats per minute, blood pressure is 130/60, respiratory rate is 18. Chest exam reveals better air entry bilaterally. Heart exam reveals first and second heart sounds. No gallop. Abdomen is soft. Exam of the extremities reveal trace edema. A chest x-ray revealed bilateral pleural effusions. EKG was within normal limits. Repeat echocardiogram showed normal LV function with mild pulmonary hypertension. EKG is normal. ASSESSMENT: 1. Acute onset diastolic heart failure. 2. Coronary artery disease, status post angioplasty. 3. Renal insufficiency. PLAN: Patient is doing better. She will continue with the current medications.
--- NOTE | 2016-12-08 13:27 | P.PN ---
Subjective This is a very pleasant 66-year-old female patient who follows with Dr. Cordova as her primary care physician. She has a history of coronary artery disease with previous stent placements, diabetes mellitus utilizing insulin pump, gastroesophageal reflux disease, hyperlipidemia, hypertension, chronic renal disease stage III with previous renal transplant, chronic anemia. She had developed an acute myocardial infarction and was hospitalized from November 05 through the 2016. Her cardiac catheterization revealed significant stenosis in the LAD and circumflex. Her renal function had declined and she was discharged to home and brought back here 11/23/2016 for PTCA and stenting of a complex mid circumflex coronary artery. Following the procedure she had developed significant bleeding and a large hematoma that was eventually controlled. There was evidence of a pseudoaneurysm via ultrasound. She was seen and evaluated by Dr. Benedict from vascular surgery. Thrombin injection was infused to the right femoral pseudoaneurysm on 11/25/2016. Follow-up ultrasound revealed failed thrombin injection and the patient had undergone a repair of perforation of a right profunda femoris artery and evacuation of the right groin hematoma yesterday. She was seen initially in consultation for critical care management on 11/27/2016. She is seen again today 12/08/2016 on the selective care unit. She has an having ongoing issues with congestive heart failure and bilateral pleural effusions. She was seen again yesterday in reconsultation by Dr. Oneill. Today 's chest x-ray does reveal continued small to moderate lateral pleural effusions. There are no plans for thoracentesis at this time. The patient is in no acute pulmonary distress. She is maintaining good O2 saturation saturations in the 90s on 3 L/m per nasal cannula. She is currently on a Lasix drip at 5 mg per hour. She remains in a negative balance. She has been having ongoing anemia. Current hemoglobin 7.4. She is status post 3 units of packed red blood cell infusions this admission. Objective - Vital Signs Vital signs: Vital Signs Temp 97.1 F L 12/08/16 11:02 Pulse 72 12/08/16 13:05 Resp 22 12/08/16 11:02 BP 129/60 12/08/16 11:02 Pulse Ox 91 L 12/08/16 11:02 Intake & Output 12/07/16 12/08/16 12/08/16 18:59 06:59 18:59 Intake Total 100 520 100 Output Total 850 809 153 Balance -750 -289 -53 Weight 102.1 kg Intake: IV 320 0.9 NS at 20 ml/hr 320 Intake, IV Titration 80 Amount Ceftaroline Fosamil 300 0 mg In Sodium Chloride 0.9 % 250 ml @ 250 mls/hr IVPB Q12HR [facility] Rx#: [id number] Furosemide 250 mg In 80 Sodium Chloride 0.9% 225 ml @ 5 MG/HR 5 mls/hr IV .Q24H [facility] Rx#:[id number] Oral 100 120 100 Output: Urine 850 800 150 Stool 9 3 Other: Voiding Method Indwelling Catheter Indwelling Catheter Indwelling Catheter # Voids 1 # Bowel Movements 1 1 - Exam GENERAL EXAM: Alert, comfortable in no apparent distress. HEAD: Normocephalic. EYES: Normal reaction of pupils, equal size. NOSE: Clear with pink turbinates. THROAT: No erythema or exudates. NECK: No masses, no JVD. CHEST: No chest wall deformity. LUNGS: Equal air entry with crackles in the posterior bases.. CVS: S1 and S2 normal with no audible murmurs, regular rhythm. ABDOMEN: Obese. Normal bowel sounds, no guarding or rigidity. Extremities: There is 1-2+ lower extremity peripheral edema. No clubbing, no cyanosis. Peripheral pulses are intact. - Labs CBC & Chem 7: 12/08/16 06:50 12/08/16 06:50 Labs: Abnormal Lab Results - Last 24 Hours (Table) 12/07/16 12/07/16 12/08/16 Range/Units 16:53 21:15 05:25 RBC (3.80-5.40) m/uL Hgb (11.4-16.0) gm/dL Hct (34.0-46.0) % BUN (7-17) mg/dL Creatinine (0.52-1.04) mg/dL Glucose (74-99) mg/dL POC Glucose (mg/dL) 144 H 136 H 61 L (75-99) mg/dL 12/08/16 12/08/16 12/08/16 Range/Units 05:40 06:50 06:50 RBC 2.53 L (3.80-5.40) m/uL Hgb 7.4 L (11.4-16.0) gm/dL Hct 23.5 L (34.0-46.0) % BUN 44 H (7-17) mg/dL Creatinine 2.51 H (0.52-1.04) mg/dL Glucose 111 H (74-99) mg/dL POC Glucose (mg/dL) 67 L (75-99) mg/dL 12/08/16 Range/Units 12:04 RBC (3.80-5.40) m/uL Hgb (11.4-16.0) gm/dL Hct (34.0-46.0) % BUN (7-17) mg/dL Creatinine (0.52-1.04) mg/dL Glucose (74-99) mg/dL POC Glucose (mg/dL) 202 H (75-99) mg/dL Assessment and Plan Plan: Impression: #1 Coronary artery disease status post stenting to the mid circumflex. #2 Right profunda femoris perforation with hematoma. Failed thrombin injection. Status post open repair. #3 Postprocedure anemia requiring 3 units of packed red blood cells. Her hemoglobin 8.5. #4 Reveals history of coronary artery disease with stent placements. #5 Diabetes mellitus requiring insulin pump. #6 Chronic renal disease, stage III with previous renal transplant, maintained on CellCept and prednisone. #7 Hyperlipidemia. #8 Hypertension. #9 Bilateral pleural effusions more so on the left secondary to diastolic congestive heart failure. The patient has preserved left ventricular systolic function with estimated ejection fraction 66 5%. Mild pulmonary hypertension with an RVSP of 40 mmHg. Plan: The patient was seen and evaluated by Dr. Oneill. Her chest x-ray and labs were reviewed. The patient does remain stable from the pulmonary standpoint. No worsening shortness of breath, cough or congestion. No plans for thoracentesis at this time. We will continue with the Lasix drip at 5 mg per hour. We will increase her activity as tolerated. We'll continue to follow and make further recommendations based on her clinical status.
[2016-12-08] MEDS ORDERED: INSULIN GLARGINE 100 UNIT/ML 10 ML VIAL SQ SCH (13:47)
--- NOTE | 2016-12-08 13:50 | P.PN ---
Subjective 66-year-old female one of my office patient of known for long time was hospitalized in November 05 of November 10, 2016 for acute myocardial infarction with acute coronary syndrome ended up going for angiogram showed significant stenosis in the LAD and circumflex. Patient kidney function had declined slightly ended up going home after being hydrated and watch her kidney function was seen in the office and see Dr. Ahmadi and patient brought to the hospital on 11/23/2016 for an angioplasty, procedure was done successfully and patient is resting comfortably with no complaint, nephrology consultation was requested and BUN/creatinine to be done an daily basis for the next 2 days. Patient will be admitted for 48 hours. 11/25: Hemoglobin 7.1, BUN 36 and creatinine 1.9. She is status post PTCA and stenting of a complex torturous mid circumflex coronary artery. Nephrology is following. She is continued on Mucomyst and scheduled for IV Ferrlecit 3 days. Patient has developed a right common femoral hematoma and pseudoaneurysm. Dr. Ybarra has evaluated the patient and she is a candidate for thrombin injection of the right femoral pseudoaneurysm. 11/26: Hemoglobin 6.5, BUN 41 and creatinine 2.26. She is continued on Ferrlecit and scheduled for transfusion 1 unit packed RBCs. IV fluids at 50 mL per hour. Patient will complete Mucomyst today. Repeat Ultrasound of the groin today. Bladder scan as needed. 11/27: Yesterday patient underwent repair of perforation of a right profunda femoris artery and evacuation of right groin hematoma with Dr. Ybarra and was subsequently admitted to the ICU. She has a Rosario catheter in place and urine output has been adequate. Rosario will be discontinued this morning. She states she has much decreased pain to the right groin area. She denies any chest pain , shortness of breath. PT is working with her today. Patient is receiving her third dose of Ferrlecit. She has completed her course of Mucomyst. IV fluids at 50 mL per hour. Repeat BUN 40 and creatinine 2.3. Repeat chest x-ray shows borderline cardiomegaly and interstitial prominence which may be chronic. Correlate to exclude mild CHF. 11/28: Patient states that the groin site remains better in regards to pain. Site is warm to the touch. She did have a temperature of 101.2 this morning blood cultures, urinalysis urine culture and chest x-ray have been ordered. Patient does not have a cough or sputum production. She is complaining of feeling achy all over. She has minimal urine output Rosario was removed last night. Morning blood sugar was 95 and patient is on insulin pump. BUN 40 with creatinine 2.7 and hemoglobin 8.4. Infectious disease consult added. Patient is complaining of sore throat for which Cepacol lozenges added. 11/29: Patient is more comfortable able to ambulate out of bed with help her hemoglobin dropped down slightly but she is feeling better she was transfer out of the intensive care unit yesterday. No need for blood transfusion yet but hemoglobin is below 8 we'll wait till tomorrow repeat another CBC if it remain in the mid 7 transfusion be done. Expectation for discharge hopefully over the next 48 hours creatinine has plateau over the last 2 days with no significant declining kidney function at this point 11/30: Ultrasound venous Doppler duplex of the right lower extremity is negative for DVT. Patient complains of nausea this morning for which Zofran has been added. She was given Lasix 60 mg IV 1. She states her breathing status is okay. Repeat BUN 40 and creatinine 2.8, potassium 4.1. Hemoglobin 7.8. She is currently on Ceftaroline and followed by Dr. Rendon. 12/01: BUN today is [address] Rendon as recommended most likely doxycycline at the time of discharge.she is status post Lasix 1 dose today. She is on fluid restriction.she hasn't some problem with urinary retention for which she was straight cathed.nephrology has started Flomax. 12/02: BUN 42 and creatinine 2.79. Hemoglobin 7.4. Fluid balance is -950. Weight is same from yesterday. She states she feels puffy. No lasix today. 12/03: Nephrology has continue patient on IV Lasix. Norvasc discontinued as patient's blood pressure is on the low side. She is continued on sodium bicarb. Kidney function continues to improve with BUN 39 creatinine 2.62. Hemoglobin is stable at 7.7. Blood sugars running 110-163. 12/04: Bun 39 and creatinine 2.6. Good urine output. She is continued on Lasix 40 mg IV twice daily. Weight is slightly up today. Aranesp was started. 12/05: Patient is sitting up in chair at her was at the bedside, the patient continues to have significant anasarca all over her body with significant bruising to the right upper extremity yet her creatinine is about the same 2.6. 12/06: Patient is complaining of significant shortness of breath, as well as significant swelling in both lower extremities and upper extremities as a matter fact she could not even walk a few steps without getting extremely short of breath, she was given Lasix 60 minute gram IV push 1 this will be repeated again in 12 hours. 12/07: Repeat hemoglobin 7.8, BUN [address] Ybarra recommending sutures out in one week and follow-up in the office on December 14. Patient is having worsening fluid overload, shortness of breath and lethargy and started on lasix drip. IV antibiotics changed to oral. Protein supplement increased to three times daily. She denies any chest pain. 12/08: BUN 44 and creatinine 2.51. Hemoglobin 7.4 and one unit of blood ordered. Blood sugars this morning were low at 61 and repeat 67 and 93. She has not been eating much. Lantus decreased to 18 units. Weight today is 102.1 kg down only 0.2 kg from yesterday. Urine out is improved. She remains on Lasix drip. She did not sleep well last night and was uncomfortable in bed. Patient states she feels better today. Objective - Vital Signs Vital signs: Vital Signs Temp 98.3 F 12/08/16 07:51 Pulse 76 12/08/16 08:46 Resp 19 12/08/16 07:51 BP 127/61 12/08/16 07:51 Pulse Ox 93 L 12/08/16 07:51 Intake & Output 12/07/16 12/08/16 12/08/16 18:59 06:59 18:59 Intake Total 100 520 Output Total 850 809 Balance -750 -289 Weight 102.1 kg Intake: IV 320 0.9 NS at 20 ml/hr 320 Intake, IV Titration 80 Amount Ceftaroline Fosamil 300 0 mg In Sodium Chloride 0.9 % 250 ml @ 250 mls/hr IVPB Q12HR [facility] Rx#: [id number] Furosemide 250 mg In 80 Sodium Chloride 0.9% 225 ml @ 5 MG/HR 5 mls/hr IV .Q24H [facility] Rx#:[id number] Oral 100 120 Output: Urine 850 800 Stool 9 Other: Voiding Method Indwelling Catheter Indwelling Catheter # Voids 1 # Bowel Movements 1 1 - Exam General appearance: no average body habitus, cooperative, no disheveled, no mild distress, no morbidly obese, no acute distress, no obese, no severe distress, no thin - EENT Eyes: no abnormal pupil, no anicteric sclerae, no disc margins sharp, no edentulous, no EOMI, no PERRLA, no fundus normal, no photophobia, no dentition normal, no poor dentition, no ptosis, no scleral icterus, normal appearance ENT: no hard of hearing, no hearing grossly normal, no NA/AT, normal oropharynx , no other, no pharyngeal erythema, no thrush, no tonsillar exudates, no tonsillar swelling Ears: bilateral: normal - Neck Neck: no lymphadenopathy, normal ROM, no other, no rigidity, no stridor, no thyromegaly Carotids: bilateral: upstroke normal Thyroid: bilateral: normal size - Respiratory Respiratory: bilateral: CTA, diminished - Cardiovascular Rhythm: regular Heart sounds: normal: S1, S2 Abnormal Heart Sounds: systolic murmur - Gastrointestinal General gastrointestinal: no absent bowel sounds, decreased bowel sounds, no distended, no hepatomegaly, no hyperactive bowel sounds, normal bowel sounds, no organomegaly, no rigid, no scaphoid, soft, no splenomegaly, no tenderness, no umbilical hernia, no ventral hernia - Integumentary Integumentary: Large mass in the right groin, less tender, no cyanotic, no decreased turgor, no flushed, no jaundiced, normal, no normal turgor, pale, rash , no ulcer - Neurologic Neurologic: CNII-XII intact - Musculoskeletal Musculoskeletal: gait normal, generalized weakness, strength equal bilaterally, no right sided weakness, no left sided weakness - Psychiatric Psychiatric: A&O x's 3, appropriate affect, no intact judgment & insight - Labs CBC & Chem 7: 12/08/16 06:50 12/08/16 06:50 Labs: Abnormal Lab Results - Last 24 Hours (Table) 12/07/16 12/07/16 12/07/16 Range/Units 05:20 11:50 16:53 RBC (3.80-5.40) m/uL Hgb (11.4-16.0) gm/dL Hct (34.0-46.0) % BUN (7-17) mg/dL Creatinine (0.52-1.04) mg/dL Glucose (74-99) mg/dL POC Glucose (mg/dL) 202 H 144 H (75-99) mg/dL Iron 16 L (37-170) ug/dL TIBC 199 L (265-497) ug/dL % Saturation 8.0 L (20-50) % 12/07/16 12/08/16 12/08/16 Range/Units 21:15 05:25 05:40 RBC (3.80-5.40) m/uL Hgb (11.4-16.0) gm/dL Hct (34.0-46.0) % BUN (7-17) mg/dL Creatinine (0.52-1.04) mg/dL Glucose (74-99) mg/dL POC Glucose (mg/dL) 136 H 61 L 67 L (75-99) mg/dL Iron (37-170) ug/dL TIBC (265-497) ug/dL % Saturation (20-50) % 12/08/16 12/08/16 Range/Units 06:50 06:50 RBC 2.53 L (3.80-5.40) m/uL Hgb 7.4 L (11.4-16.0) gm/dL Hct 23.5 L (34.0-46.0) % BUN 44 H (7-17) mg/dL Creatinine 2.51 H (0.52-1.04) mg/dL Glucose 111 H (74-99) mg/dL POC Glucose (mg/dL) (75-99) mg/dL Iron (37-170) ug/dL TIBC (265-497) ug/dL % Saturation (20-50) % Assessment and Plan Plan: 1 CAD: With multiple coronary artery disease patent lesion in the RCA with stent still open, had 2 more lesion 1 in the LAD and one in the circumflex which Dr. Ahmadi has done an angioplasty and stent placement successfully. 2. Right common femoral hematoma and pseudoaneurysm with early sepsis and cellulitis with possible wound infection developing. Dr. Ybarra on consult. Plan for thrombin injection of the right femoral pseudoaneurysm. Status post repair of pseudoaneurysm right groin. Blood cultures, urine culture, urinalysis , chest x-ray and ID consult added. Ceftaroline changed to oral doxycycline. 3. post [place] with acute coronary syndrome: Patient has done well since her last admission. 4. Acute kidney injury on chronic kidney disease stage III post kidney transplant, patient is still seen nephrology regular basis which will be followed daily with repeat BUN/creatinine. Sodium bicarb, Lasix drip. Protein supplement increased to 3 times daily. 5. diabetes mellitus type 2: Patient is on insulin pump at home. Decrease lantus and continue Accu-Chek with sliding scales coverage. 6. hyperlipidemia: On Lipitor 20 mg daily. 7. GERD: Patient is on Zantac or H2 jai and doing well. 8. post renal transplant: Patient to continue CellCept 750 mg orally twice a day along with Prograf 2 mg twice a day and prednisone 5 mg daily. 9. hypertension: Continue atenolol 100 mg daily. Norvasc was discontinued. 10. Urinary retention for which patient required straight cath. Flomax added. 11. Acute blood loss anemia status post transfusion and anemia of chronic kidney disease. On Aranesp. CODE STATUS: Full code. Discharge plan: Subacute rehab. PT and OT in place. Impression and plan of care have been directed as dictated by the signing physician. Lainey Cameron nurse practitioner acting as scribe for signing physician. Time with Patient: Greater than 30
[2016-12-08] MEDS: FUROSEMIDE 250 MG in SODIUM CHLORIDE 0.9% 225 ML IVP SCH (14:43)
[2016-12-08 17:02] LABS: Glucose,Whole Blood 205 mg/dL (75-99)
--- NOTE | 2016-12-08 19:34 | P.PN ---
Subjective Principal diagnosis: Coronary artery disease 66-year-old female who has a known history of coronary artery disease was hospitalized in early November 2016 with an acute myocardial infarction. Evidence of Stenosis of Her Left Anterior Descending Artery in Her Circumflex. With a History of Renal Transplantation It Was Noted That Her Renal Function Had Worsened a Bit. Because She Was Stable Was Plan for Readmission for Her Angioplasty. She then Was Readmitted and Angioplasty Occurred on 11/23/2016. She Is Doing Modestly Well However Developed Difficulty with Pain to Her Right Groin. There Is Evidence of a Pseudoaneurysm. She's Been Taking to the Operating Room and the aneurysm has Been Repaired. She then started Having Difficulties with Increasing Tenderness Erythema and Some Scant Serous Drainage. Some Scant Bloody Drainage Inferior to the Incision from Her Prior Dressing. She then Developed a Temperature 101.2 which fortunately has resolved Feeling much better today. Is still having difficulty with volume overload but her creatinine is improved, furosemide drip is in progress Objective - Vital Signs Vital signs: Vital Signs Temp 98.1 F 12/08/16 17:40 Pulse 70 12/08/16 17:40 Resp 20 12/08/16 17:40 BP 121/61 12/08/16 17:40 Pulse Ox 92 L 12/08/16 17:40 Intake & Output 12/08/16 12/08/16 12/09/16 06:59 18:59 06:59 Intake Total 520 100 Output Total 809 153 Balance -289 -53 Weight 102.1 kg Intake: IV 320 0.9 NS at 20 ml/hr 320 Intake, IV Titration 80 Amount Ceftaroline Fosamil 300 0 mg In Sodium Chloride 0.9 % 250 ml @ 250 mls/hr IVPB Q12HR [facility] Rx#: [id number] Furosemide 250 mg In 80 Sodium Chloride 0.9% 225 ml @ 5 MG/HR 5 mls/hr IV .Q24H ONE Rx#:[id number] Oral 120 100 Blood Product 0 Rc As-1 Unit 0 [id number] Output: Urine 800 150 Stool 9 3 Other: Voiding Method Indwelling Catheter Indwelling Catheter # Voids 1 # Bowel Movements 1 - Exam pleasant 66 -year-old woman who issitting up in the chair. The exertion made her feel somewhat HEENT: Anicteric conjunctiva are pink and moist nasal mucosa grossly intact without significant lesions, there is no thrush. Neck: The neck is supple without significant lymphadenopathy or thyromegaly. Lungs: Symmetrical air entry. Bibasilar crackles are heard. No kurt bronchial sounds. Heart: Irregular with an audible S1 and S2 soft S4 no murmur click or rub PMI was nondisplaced Abdomen: obese,Positive bowel sounds soft and nontender without palpable masses or organomegaly. There was no guarding or rebound. Extremities: The upper extremities have excellent pulses they are symmetric, no significant petechiae or telangiectasia. No splinter hemorrhages were noted. Lower extremities evidence of generalized edema. Left lower extremities hasbeen abnormalities. Neurologic she was as the recent surgical intervention to the right groin. Surgical incision is intact. There is a scant amount of drainage on the dressing. Nothing is expressible. She is a small tape injury was some bleeding it's distal on the thigh. There is some mild surrounding erythema. It is somewhat tender to touch. But not exquisitely so. No odor is noted. There is no ascending erythema that is noted there is minimal area of discoloration to the staple line is somewhat hyperemic with concerns of possible early superficial skin necrosis has not worsened looks extremity edema persists Neuro: Awake alert oriented to person place and time. There are no acute new gross focal sensory motor deficits. - Labs CBC & Chem 7: 12/08/16 06:50 12/08/16 06:50 Labs: Abnormal Lab Results - Last 24 Hours (Table) 12/07/16 12/08/16 12/08/16 Range/Units 21:15 05:25 05:40 RBC (3.80-5.40) m/uL Hgb (11.4-16.0) gm/dL Hct (34.0-46.0) % BUN (7-17) mg/dL Creatinine (0.52-1.04) mg/dL Glucose (74-99) mg/dL POC Glucose (mg/dL) 136 H 61 L 67 L (75-99) mg/dL Crossmatch 12/08/16 12/08/16 12/08/16 Range/Units 06:50 06:50 12:04 RBC 2.53 L (3.80-5.40) m/uL Hgb 7.4 L (11.4-16.0) gm/dL Hct 23.5 L (34.0-46.0) % BUN 44 H (7-17) mg/dL Creatinine 2.51 H (0.52-1.04) mg/dL Glucose 111 H (74-99) mg/dL POC Glucose (mg/dL) (75-99) mg/dL Crossmatch See Detail 12/08/16 12/08/16 Range/Units 12:04 16:53 RBC (3.80-5.40) m/uL Hgb (11.4-16.0) gm/dL Hct (34.0-46.0) % BUN (7-17) mg/dL Creatinine (0.52-1.04) mg/dL Glucose (74-99) mg/dL POC Glucose (mg/dL) 202 H 205 H (75-99) mg/dL Crossmatch Laboratory Results WBC 8.8 k/uL (3.8-10.6) 12/08/16 06:50 RBC 2.53 m/uL (3.80-5.40) L 12/08/16 06:50 Hgb 7.4 gm/dL (11.4-16.0) L 12/08/16 06:50 Hct 23.5 % (34.0-46.0) L 12/08/16 06:50 MCV 93.2 fL (80.0-100.0) 12/08/16 06:50 MCH 29.2 pg (25.0-35.0) 12/08/16 06:50 MCHC 31.4 g/dL (31.0-37.0) 12/08/16 06:50 RDW 14.6 % (11.5-15.5) 12/08/16 06:50 Plt Count 310 k/uL (150-450) 12/08/16 06:50 Neutrophils % 72 % 12/07/16 05:20 Lymphocytes % 14 % 12/07/16 05:20 Monocytes % 8 % 12/07/16 05:20 Eosinophils % 3 % 12/07/16 05:20 Basophils % 0 % 12/07/16 05:20 Neutrophils # 5.8 k/uL (1.3-7.7) 12/07/16 05:20 Lymphocytes # 1.1 k/uL (1.0-4.8) 12/07/16 05:20 Monocytes # 0.6 k/uL (0-1.0) 12/07/16 05:20 Eosinophils # 0.3 k/uL (0-0.7) 12/07/16 05:20 Basophils # 0.0 k/uL (0-0.2) 12/07/16 05:20 Hypochromasia Slight 12/08/16 06:50 PT 11.1 sec (9.0-12.0) 11/27/16 04:46 INR 1.1 (<1.1) 11/27/16 04:46 Sodium 138 mmol/L (137-145) 12/08/16 06:50 Potassium 4.3 mmol/L (3.5-5.1) 12/08/16 06:50 Chloride 103 mmol/L (98-107) 12/08/16 06:50 Carbon Dioxide 25 mmol/L (22-30) 12/08/16 06:50 Anion Gap 10 mmol/L 12/08/16 06:50 BUN 44 mg/dL (7-17) H 12/08/16 06:50 Creatinine 2.51 mg/dL (0.52-1.04) H 12/08/16 06:50 Est GFR (MDRD) Af Amer 23 (>60 ml/min/1.73 sqM) 12/08/16 06:50 Est GFR (MDRD) Non-Af 19 (>60 ml/min/1.73 sqM) 12/08/16 06:50 Glucose 111 mg/dL (74-99) H 12/08/16 06:50 POC Glucose (mg/dL) 205 mg/dL (75-99) H 12/08/16 16:53 POC Glu Hatch Tender ID Nikita Mcelroy 12/08/16 16:[address] Glu mg/dL 154 mg/dL 11/27/16 04:46 Hemoglobin A1c 7.0 % (4.2-6.1) H 11/27/16 04:46 Osmolality 275 mosm/kg (280-301) L 11/29/16 06:12 Calcium 9.1 mg/dL (8.4-10.2) 12/08/16 06:50 Phosphorus 4.8 mg/dL (2.5-4.5) H 11/27/16 04:46 Magnesium 1.8 mg/dL (1.6-2.3) 12/03/16 06:24 Iron 16 ug/dL (37-170) L 12/07/16 05:20 TIBC 199 ug/dL (265-497) L 12/07/16 05:20 % Saturation 8.0 % (20-50) L 12/07/16 05:20 Ferritin 168 ng/mL (11-264) 11/24/16 07:48 Total Bilirubin 0.6 mg/dL (0.2-1.3) 12/07/16 05:20 AST 12 U/L (14-36) L 12/07/16 05:20 ALT 28 U/L (9-52) 12/07/16 05:20 Alkaline Phosphatase 62 U/L (38-126) 12/07/16 05:20 Total Protein 5.1 g/dL (6.3-8.2) L 12/07/16 05:20 Albumin 2.7 g/dL (3.5-5.0) L 12/07/16 05:20 Urine Color Yellow 11/28/16 09:55 Urine Appearance Clear (Clear) 11/28/16 09:55 Urine pH 5.5 (5.0-8.0) 11/28/16 09:55 Ur Specific [place] 1.010 (1.001-1.035) 11/28/16 09:55 Urine Protein 2+ (Negative) H 11/28/16 09:55 Urine Glucose (UA) Negative (Negative) 11/28/16 09:55 Urine Ketones Negative (Negative) 11/28/16 09:55 Urine Blood Negative (Negative) 11/28/16 09:55 Urine Nitrate Negative (Negative) 11/28/16 09:55 Urine Bilirubin Negative (Negative) 11/28/16 09:55 Urine Urobilinogen <2.0 mg/dL (<2.0) 11/28/16 09:55 Ur Leukocyte Esterase Negative (Negative) 11/28/16 09:55 Urine WBC 1 /hpf (0-5) 11/28/16 09:55 Urine Mucus Rare /hpf (None) H 11/28/16 09:55 Urine Osmolality 255 mosm/kg (50-1400) 11/29/16 11:26 Ur Random Sodium <5 mmol/L (30-90) L 11/29/16 11:26 Ur Random Potassium 23.4 mmol/L 11/29/16 11:26 Blood Type A Positive 12/08/16 12:04 Blood Type Confirm A Positive 11/24/16 20:03 Blood Type Recheck No 12/08/16 12:04 Antibody Screen NEGATIVE 12/08/16 12:04 Crossmatch See Detail 12/08/16 12:04 Spec Expiration Date 12/11/2016 - 2304 12/08/16 12:04 Microbiology 11/28/16 10:03 Blood Blood Culture - Final No Growth after 144 hours 11/28/16 08:53 Blood Blood Culture - Final No Growth after 144 hours 11/28/16 09:55 Urine,Catheterized Urine Culture - Final Assessment and Plan (1) Fever Narrative/Plan: 66-year-old male presents to Hospital after her myocardial infarction earlier this year. She presented for her cardiac intervention and stenting was performed to the LAD and circumflex. She been doing well but was having some difficulty with her right groin. In that she developed a temperature 101.2. She has been seen by vascular surgery and repair of her pseudoaneurysms occurred. As evidence of some fever 101.2 erythema and tenderness to the site. With this is concerned infection at that area. She has a known history of vancomycin ALLERGY. With this Ceftaroline 400 mg IV piggyback every 12 hours as utilized. She give coverage for staph including MRSA as well as some routine gram-negative organisms such as E. coli that are in the groin. There is no drainage at this time for culture. Blood cultures are in process. And are negative so far She is symptomatically stable. With her ALLERGIES since she is improving as far as a cellulitis to the right leg Ceftaroline is discontinued and doxycycline 100 mg twice per day can be utilized She is feeling better except for shortness of breath which has been improving. Does have a history of renal transplantation. Her creatinine is up from her baseline of 1.6, 2.53 today. She is monitored closely from nephrology. IV lasix continues Receiving diuresis for her significant volume overload. Rosario is in place to measure urinary output. Status: Acute (2) Pseudoaneurysm of right femoral artery Status: Acute (3) Cellulitis of right thigh Status: Acute
--- NOTE | 2016-12-08 20:05 | PN ---
Patient is seen for follow-up for acute kidney injury secondary to acute tubular necrosis. She is also being treated for fluid overload. More recently she has had worsening of her volume status and was started on Lasix drip yesterday. She has been diuresing although not huge amounts. For 24 hours patient was negative for about a liter. She states she is feeling slightly better today. Hemoglobin is also low at 7.4 g/dL. On examination, blood pressure is 121/61, heart rate 72 per minute. She is afebrile. Examination shows significant edema bilateral lower extremities. ABDOMEN: Distended, soft, nontender. Her face appears to be slightly less puffy. Labs show sodium 138, potassium 4.3, BUN 44, serum creatinine 2.5. Hemoglobin 7.4 g/dL. ASSESSMENT: 1. Acute kidney injury, acute tubular necrosis, currently nonoliguric, renal function fairly stable with some improvement as creatinine has come down from peak of 2.9 mg/dL. 2. Severe fluid overload, maintained on Lasix drip, which we will continue for now. 3. Anemia with no active bleeding noted, maintained on Aranesp, transfuse 1 unit packed RBCs in view of underlying heart disease and congestive heart failure. 4. Status post living unrelated renal transplant at [facility] in 2004 and maintained on immunosuppression, tacrolimus level was ordered. It was ordered for today. Last level was 6.8 on 11/09/2016 5. Coronary artery disease, status post coronary artery stent this admission. PLAN: Continue with Lasix drip, transfuse 1 unit packed RBCs. Follow up on the tacrolimus level.
[2016-12-08 21:01] LABS: Glucose,Whole Blood 217 mg/dL (75-99)
[2016-12-08] MEDS: ALPRAZolam 0.5 MG TAB PO PRN (21:20)
[2016-12-09 06:14] LABS: Glucose,Whole Blood 64 mg/dL (75-99)
[2016-12-09] MEDS: INSULIN LISPRO SQ SCH ×4 (06:32→22:02)
[2016-12-09 06:33] LABS: Glucose,Whole Blood 75 mg/dL (75-99)
[2016-12-09] MEDS: FERROUS SULFATE 325 MG TAB PO SCH ×2 (06:33→16:16)
[2016-12-09 07:02] LABS: CH 30.2; CHCM 33.5; HCT 28.7 % (34.0-46.0); HDW 3.49; MCHC 31.9 g/dL (31.0-37.0); MCV 90.9 fL (80.0-100.0); Mean Platelet Volume 7.5; Poikilocytosis Slight; RBC 3.16 m/uL (3.80-5.40); RDW 14.7 % (11.5-15.5); WBC 8.9 k/uL (3.8-10.6)
[2016-12-09 07:06] LABS: HGB 9.2 gm/dL (11.4-16.0)
[2016-12-09 07:35] LABS: Calcium 9.4 mg/dL (8.4-10.2); Potassium 4.3 mmol/L (3.5-5.1)
[2016-12-09] MEDS: LEVALBUTEROL NEB 1.25 MG/3 ML AMP INHALATION SCH ×4 (08:35→19:48)
[2016-12-09] MEDS: ATORVASTATIN 80 MG TAB PO SCH (08:48)
[2016-12-09] MEDS: ASPIRIN 81 MG CHEW PO SCH (08:48)
[2016-12-09] MEDS: TAMSULOSIN 0.4 MG CAP.ER.24H PO SCH (08:48)
[2016-12-09] MEDS: CLOPIDOGREL 75 MG TAB PO SCH (08:48)
[2016-12-09] MEDS: ATENOLOL 50 MG TAB PO SCH (08:48)
[2016-12-09] MEDS: DOXYCYCLINE 50 MG CAP PO SCH ×2 (08:49→20:20)
[2016-12-09] MEDS: hydrALAZINE HCL 50 MG TAB PO SCH ×4 (08:49→20:20)
[2016-12-09] MEDS: LACTULOSE 20 GM/30 ML CUP PO SCH ×3 (08:50→20:19)
[2016-12-09] MEDS: MYCOPHENOLATE MOFETIL 250 MG CAP PO SCH ×2 (08:51→20:20)
[2016-12-09] MEDS: RANITIDINE SYRUP 150 MG/10 ML CUP PO SCH (08:51)
[2016-12-09] MEDS: predniSONE 5 MG TAB PO SCH (08:51)
[2016-12-09] MEDS: SODIUM BICARBONATE TAB 650 MG TAB PO SCH ×2 (08:52→20:20)
[2016-12-09] MEDS: TACROLIMUS 1 MG CAP PO SCH ×2 (08:52→20:20)
[2016-12-09 12:05] LABS: Glucose,Whole Blood 220 mg/dL (75-99)
[2016-12-09] MEDS: CHOLECALCIFEROL 1,000 UNIT TAB PO SCH (12:33)
--- NOTE | 2016-12-09 12:54 | P.PN ---
Subjective Principal diagnosis: Acute congestive heart failure This is a very pleasant 66-year-old female patient who follows with Dr. Cordova as her primary care physician. She has a history of coronary artery disease with previous stent placements, diabetes mellitus utilizing insulin pump, gastroesophageal reflux disease, hyperlipidemia, hypertension, chronic renal disease stage III with previous renal transplant, chronic anemia. She had developed an acute myocardial infarction and was hospitalized from November 05 through the 2016. Her cardiac catheterization revealed significant stenosis in the LAD and circumflex. Her renal function had declined and she was discharged to home and brought back here 11/23/2016 for PTCA and stenting of a complex mid circumflex coronary artery. Following the procedure she had developed significant bleeding and a large hematoma that was eventually controlled. There was evidence of a pseudoaneurysm via ultrasound. She was seen and evaluated by Dr. Jesi dutta from vascular surgery. Thrombin injection was infused to the right femoral pseudoaneurysm on 11/25/2016. Follow-up ultrasound revealed failed thrombin injection and the patient had undergone a repair of perforation of a right profunda femoris artery and evacuation of the right groin hematoma yesterday. She is seen today in consultation for critical care management on 11/27/2016. Presently she is awake and alert in no acute distress. There is been no further bleeding noted from the right groin site. Dressing is dry and intact. His been hemodynamically stable. Not requiring any pressors. She did require 3 units of packed red blood cell infusions. Her current hemoglobin is 8.5. She is not on any pressors. She's been hemodynamically stable. Her chest x-ray does reveal some evidence of mild fluid volume overload. She is maintaining good O2 saturations in the mid 90s on 2 L/m per nasal cannula. Patient was seen above by Dr. Wilkinson on consultation, and that was on 11/27/2016, he felt at the time that the patient had congestive heart failure. At any rate the patient is still inpatient, and recent chest x-ray showed worsening bilateral pleural effusions, echocardiogram showed large pleural effusion, and ultrasound of the chest showed bilateral pleural effusions right more so than left. Considering the findings I was asked to see the patient on consultation. Patient has mostly symptoms of shortness of breath, occasional cough, some wheezing, and today she was placed on a Lasix drip. I have a feeling that the patient will not require thoracentesis assuming she responds well to diuresis. Reevaluated today on 12/09/2016, patient is feeling better clinically, responding well to Lasix drip, and shortness of breath is significantly improved. Again at this point I don't see the value of performing thoracentesis on this patient , as long as she is responding to Lasix diuresis. Today she denies any cough no wheezing no shortness of breath Objective - Vital Signs Vital signs: Vital Signs Temp 97.6 F 12/09/16 11:22 Pulse 71 12/09/16 11:47 Resp 19 12/09/16 11:47 BP 127/72 12/09/16 11:22 Pulse Ox 96 12/09/16 11:22 Intake & Output 12/08/16 12/09/16 12/09/16 18:59 06:59 18:59 Intake Total 100 370 894 Output Total 663 289 1885 Balance -53 -280 -909 Weight 101 kg Intake: Intake, IV Titration 60 Amount Furosemide 250 mg In 60 Sodium Chloride 0.9% 225 ml @ 5 MG/HR 5 mls/hr IVP .Q24H [facility] Rx#:[id number] Oral 100 894 Blood Product 0 310 Rc As-1 Unit 0 310 [id number] Output: Urine 405 793 0968 Stool 3 3 Other: Voiding Method Indwelling Catheter Indwelling Catheter Indwelling Catheter # Bowel Movements 1 1 - Exam GENERAL EXAM: Alert, comfortable in no apparent distress. HEAD: Normocephalic. EYES: Normal reaction of pupils, equal size. NOSE: Clear with pink turbinates. THROAT: No erythema or exudates. NECK: No masses, no JVD. CHEST: No chest wall deformity. LUNGS: Equal air entry with crackles in the posterior bases.. CVS: S1 and S2 normal with no audible murmurs, regular rhythm. ABDOMEN: Obese. Normal bowel sounds, no guarding or rigidity. Extremities: There is 1-2+ lower extremity peripheral edema. No clubbing, no cyanosis. Peripheral pulses are intact. - Labs CBC & Chem 7: 12/09/16 06:16 12/09/16 06:00 Labs: Abnormal Lab Results - Last 24 Hours (Table) 12/08/16 12/08/16 12/08/16 Range/Units 12:04 16:53 20:59 RBC (3.80-5.40) m/uL Hgb (11.4-16.0) gm/dL Hct (34.0-46.0) % BUN (7-17) mg/dL Creatinine (0.52-1.04) mg/dL POC Glucose (mg/dL) 205 H 217 H (75-99) mg/dL Crossmatch See Detail 12/09/16 12/09/16 12/09/16 Range/Units 06:00 06:12 06:16 RBC 3.16 L (3.80-5.40) m/uL Hgb 9.2 L D (11.4-16.0) gm/dL Hct 28.7 L (34.0-46.0) % BUN 45 H (7-17) mg/dL Creatinine 2.52 H (0.52-1.04) mg/dL POC Glucose (mg/dL) 64 L (75-99) mg/dL Crossmatch 12/09/16 Range/Units 11:58 RBC (3.80-5.40) m/uL Hgb (11.4-16.0) gm/dL Hct (34.0-46.0) % BUN (7-17) mg/dL Creatinine (0.52-1.04) mg/dL POC Glucose (mg/dL) 220 H (75-99) mg/dL Crossmatch Assessment and Plan Plan: #1 Coronary artery disease status post stenting to the mid circumflex. #2 Right profunda femoris perforation with hematoma. Failed thrombin injection. Status post open repair. #3 Postprocedure anemia requiring 3 units of packed red blood cells. Her hemoglobin 8.5. #4 Reveals history of coronary artery disease with stent placements. #5 Diabetes mellitus requiring insulin pump. #6 Chronic renal disease, stage III with previous renal transplant, maintained on CellCept and prednisone. #7 Hyperlipidemia. #8 Hypertension. #9 Bilateral pleural effusions more so on the left secondary to diastolic congestive heart failure. The patient has preserved left ventricular systolic function with estimated ejection fraction 66 5%. Mild pulmonary hypertension with an RVSP of 40 mmHg. Recommendation: Continue diuretics, patient is being followed closely by cardiology, and we'll continue to follow. Again at this point I see no value for thoracentesis in this situation. Time with Patient: Less than 30
--- NOTE | 2016-12-09 14:10 | PN ---
66-year-old lady who has multiple and complex problems including coronary artery disease, status post angioplasty, pseudoaneurysm, status post repair, fluid overload. At the moment she states that she is feeling better. She lost 2 pounds since yesterday. Still on the Lasix drip per nephrology. On exam, heart rate is 60 beats per minute, blood pressure 127/72, respirations 18. Chest exam reveals diminished air entry at the bases. Heart exam reveals first and second heart sounds. No gallop. Examination of extremities reveals bilateral 1+ pitting edema. Labs show a hemoglobin of 9.2. BUN is 45. Creatinine is 2.5. Potassium is 4.3. ASSESSMENT: 1. Fluid overload. 2. Chronic renal failure. 3. Coronary artery disease, status post angioplasty. 4. Pseudoaneurysm, status post repair. PLAN: Will continue with current medications.
--- NOTE | 2016-12-09 14:36 | PN ---
Patient is seen for followup for acute kidney injury, severe volume overload. She is currently maintained on Lasix drip at 5 mg/h. Her weight is finally down about a kilogram from yesterday. Patient's negative balance; however, is not significant. She states overall she is feeling slightly better. Patient did get a unit of packed RBCs yesterday as well. On examination, blood pressure is 127/72, heart rate 60 per minute. She is afebrile. Examination of the heart, S1 and S2. Examination of the lungs, bilateral breath sounds are heard. Abdomen is soft, morbidly obese. Examination of lower extremities shows bilateral extremities to be wrapped. Significant edema is noted bilaterally. Labs show hemoglobin 9.2, sodium 140, serum creatinine 2.5. ASSESSMENT: 1. Acute kidney injury, acute tubular necrosis, currently nonoliguric with stable renal function, serum creatinine staying at about 2.5 for the last few days. 2. Severe volume overload, maintained on Lasix drip. I will increase that to 10 mg/h today. 3. Coronary artery disease, status post cardiac catheterization. 4. 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 5. Anemia with no active bleeding noted, maintained on Aranesp, status post packed RBC transfusion. 6. Hematoma, pseudoaneurysm at the site of cardiac catheterization with some drainage that is currently maintained on antibiotics. PLAN: Increase Lasix drip to 10 mg/h and repeat labs in the a.m. Follow up on the tacrolimus level. Patient is encouraged to continue to maintain good oral intake, particularly protein.
[2016-12-09 14:59] VITALS: BMI 36.5
--- NOTE | 2016-12-09 15:39 | P.PN ---
Subjective 66-year-old female one of my office patient of known for long time was hospitalized in November 05 of November 10, 2016 for acute myocardial infarction with acute coronary syndrome ended up going for angiogram showed significant stenosis in the LAD and circumflex. Patient kidney function had declined slightly ended up going home after being hydrated and watch her kidney function was seen in the office and see Dr. Ahmadi and patient brought to the hospital on 11/23/2016 for an angioplasty, procedure was done successfully and patient is resting comfortably with no complaint, nephrology consultation was requested and BUN/creatinine to be done an daily basis for the next 2 days. Patient will be admitted for 48 hours. 11/25: Hemoglobin 7.1, BUN 36 and creatinine 1.9. She is status post PTCA and stenting of a complex torturous mid circumflex coronary artery. Nephrology is following. She is continued on Mucomyst and scheduled for IV Ferrlecit 3 days. Patient has developed a right common femoral hematoma and pseudoaneurysm. Dr. Ybarra has evaluated the patient and she is a candidate for thrombin injection of the right femoral pseudoaneurysm. 11/26: Hemoglobin 6.5, BUN 41 and creatinine 2.26. She is continued on Ferrlecit and scheduled for transfusion 1 unit packed RBCs. IV fluids at 50 mL per hour. Patient will complete Mucomyst today. Repeat Ultrasound of the groin today. Bladder scan as needed. 11/27: Yesterday patient underwent repair of perforation of a right profunda femoris artery and evacuation of right groin hematoma with Dr. Ybarra and was subsequently admitted to the ICU. She has a Rosario catheter in place and urine output has been adequate. Rosario will be discontinued this morning. She states she has much decreased pain to the right groin area. She denies any chest pain , shortness of breath. PT is working with her today. Patient is receiving her third dose of Ferrlecit. She has completed her course of Mucomyst. IV fluids at 50 mL per hour. Repeat BUN 40 and creatinine 2.3. Repeat chest x-ray shows borderline cardiomegaly and interstitial prominence which may be chronic. Correlate to exclude mild CHF. 11/28: Patient states that the groin site remains better in regards to pain. Site is warm to the touch. She did have a temperature of 101.2 this morning blood cultures, urinalysis urine culture and chest x-ray have been ordered. Patient does not have a cough or sputum production. She is complaining of feeling achy all over. She has minimal urine output Rosario was removed last night. Morning blood sugar was 95 and patient is on insulin pump. BUN 40 with creatinine 2.7 and hemoglobin 8.4. Infectious disease consult added. Patient is complaining of sore throat for which Cepacol lozenges added. 11/29: Patient is more comfortable able to ambulate out of bed with help her hemoglobin dropped down slightly but she is feeling better she was transfer out of the intensive care unit yesterday. No need for blood transfusion yet but hemoglobin is below 8 we'll wait till tomorrow repeat another CBC if it remain in the mid 7 transfusion be done. Expectation for discharge hopefully over the next 48 hours creatinine has plateau over the last 2 days with no significant declining kidney function at this point 11/30: Ultrasound venous Doppler duplex of the right lower extremity is negative for DVT. Patient complains of nausea this morning for which Zofran has been added. She was given Lasix 60 mg IV 1. She states her breathing status is okay. Repeat BUN 40 and creatinine 2.8, potassium 4.1. Hemoglobin 7.8. She is currently on Ceftaroline and followed by Dr. Rendon. 12/01: BUN today is [address] Rendon as recommended most likely doxycycline at the time of discharge.she is status post Lasix 1 dose today. She is on fluid restriction.she hasn't some problem with urinary retention for which she was straight cathed.nephrology has started Flomax. 12/02: BUN 42 and creatinine 2.79. Hemoglobin 7.4. Fluid balance is -950. Weight is same from yesterday. She states she feels puffy. No lasix today. 12/03: Nephrology has continue patient on IV Lasix. Norvasc discontinued as patient's blood pressure is on the low side. She is continued on sodium bicarb. Kidney function continues to improve with BUN 39 creatinine 2.62. Hemoglobin is stable at 7.7. Blood sugars running 110-163. 12/04: Bun 39 and creatinine 2.6. Good urine output. She is continued on Lasix 40 mg IV twice daily. Weight is slightly up today. Aranesp was started. 12/05: Patient is sitting up in chair at her was at the bedside, the patient continues to have significant anasarca all over her body with significant bruising to the right upper extremity yet her creatinine is about the same 2.6. 12/06: Patient is complaining of significant shortness of breath, as well as significant swelling in both lower extremities and upper extremities as a matter fact she could not even walk a few steps without getting extremely short of breath, she was given Lasix 60 minute gram IV push 1 this will be repeated again in 12 hours. 12/07: Repeat hemoglobin 7.8, BUN [address] Ybarra recommending sutures out in one week and follow-up in the office on December 14. Patient is having worsening fluid overload, shortness of breath and lethargy and started on lasix drip. IV antibiotics changed to oral. Protein supplement increased to three times daily. She denies any chest pain. 12/08: BUN 44 and creatinine 2.51. Hemoglobin 7.4 and one unit of blood ordered. Blood sugars this morning were low at 61 and repeat 67 and 93. She has not been eating much. Lantus decreased to 18 units. Weight today is 102.1 kg down only 0.2 kg from yesterday. Urine out is improved. She remains on Lasix drip. She did not sleep well last night and was uncomfortable in bed. Patient states she feels better today. 12/09: BUN 45 and creatinine 2.52. Hemoglobin 9.2. The blood glucose this morning was 64 and repeat 75. And Lantus will be decreased again down to 16 units with scheduled Humalog 3 units with each meal and scale. Weight is down 1 kg from yesterday. Lasix drip changed over to Lasix 40 mg IV every 8 hours. Repeat chest x-ray ordered for the morning. Patient has SALVATORE hose in place are cutting into legs and Clarence wraps will be requested. Objective - Vital Signs Vital signs: Vital Signs Temp 97.0 F L 12/09/16 08:02 Pulse 86 12/09/16 08:48 Resp 19 12/09/16 08:02 BP 153/70 12/09/16 08:02 Pulse Ox 94 L 12/09/16 08:37 Intake & Output 12/08/16 12/09/16 12/09/16 18:59 06:59 18:59 Intake Total 100 370 Output Total 153 650 Balance -53 -280 Weight 101 kg Intake: Intake, IV Titration 60 Amount Furosemide 250 mg In 60 Sodium Chloride 0.9% 225 ml @ 5 MG/HR 5 mls/hr IVP .Q24H [facility] Rx#:[id number] Oral 100 Blood Product 0 310 Rc As-1 Unit 0 310 [id number] Output: Urine 150 650 Stool 3 Other: Voiding Method Indwelling Catheter Indwelling Catheter # Bowel Movements 1 - Exam General appearance: no average body habitus, cooperative, no disheveled, no mild distress, no morbidly obese, no acute distress, no obese, no severe distress, no thin - EENT Eyes: no abnormal pupil, no anicteric sclerae, no disc margins sharp, no edentulous, no EOMI, no PERRLA, no fundus normal, no photophobia, no dentition normal, no poor dentition, no ptosis, no scleral icterus, normal appearance ENT: no hard of hearing, no hearing grossly normal, no NA/AT, normal oropharynx , no other, no pharyngeal erythema, no thrush, no tonsillar exudates, no tonsillar swelling Ears: bilateral: normal - Neck Neck: no lymphadenopathy, normal ROM, no other, no rigidity, no stridor, no thyromegaly Carotids: bilateral: upstroke normal Thyroid: bilateral: normal size - Respiratory Respiratory: bilateral: CTA, diminished - Cardiovascular Rhythm: regular Heart sounds: normal: S1, S2 Abnormal Heart Sounds: systolic murmur - Gastrointestinal General gastrointestinal: no absent bowel sounds, decreased bowel sounds, no distended, no hepatomegaly, no hyperactive bowel sounds, normal bowel sounds, no organomegaly, no rigid, no scaphoid, soft, no splenomegaly, no tenderness, no umbilical hernia, no ventral hernia - Integumentary Integumentary: Large mass in the right groin, less tender, no cyanotic, no decreased turgor, no flushed, no jaundiced, normal, no normal turgor, pale, rash , no ulcer - Neurologic Neurologic: CNII-XII intact - Musculoskeletal Musculoskeletal: gait normal, generalized weakness, strength equal bilaterally, no right sided weakness, no left sided weakness - Psychiatric Psychiatric: A&O x's 3, appropriate affect, no intact judgment & insight - Labs CBC & Chem 7: 02/08/17 06:16 12/09/16 06:00 Labs: Abnormal Lab Results - Last 24 Hours (Table) 12/08/16 12/08/16 12/08/16 Range/Units 12:04 12:04 16:53 RBC (3.80-5.40) m/uL Hgb (11.4-16.0) gm/dL Hct (34.0-46.0) % BUN (7-17) mg/dL Creatinine (0.52-1.04) mg/dL POC Glucose (mg/dL) 202 H 205 H (75-99) mg/dL Crossmatch See Detail 12/08/16 12/09/16 12/09/16 Range/Units 20:59 06:00 06:12 RBC (3.80-5.40) m/uL Hgb (11.4-16.0) gm/dL Hct (34.0-46.0) % BUN 45 H (7-17) mg/dL Creatinine 2.52 H (0.52-1.04) mg/dL POC Glucose (mg/dL) 217 H 64 L (75-99) mg/dL Crossmatch 12/09/16 Range/Units 06:16 RBC 3.16 L (3.80-5.40) m/uL Hgb 9.2 L D (11.4-16.0) gm/dL Hct 28.7 L (34.0-46.0) % BUN (7-17) mg/dL Creatinine (0.52-1.04) mg/dL POC Glucose (mg/dL) (75-99) mg/dL Crossmatch Assessment and Plan Plan: 1 CAD: With multiple coronary artery disease patent lesion in the RCA with stent still open, had 2 more lesion 1 in the LAD and one in the circumflex which Dr. Ahmadi has done an angioplasty and stent placement successfully. 2. Right common femoral hematoma and pseudoaneurysm with early sepsis and cellulitis with possible wound infection developing. Dr. Ybarra on consult. Plan for thrombin injection of the right femoral pseudoaneurysm. Status post repair of pseudoaneurysm right groin. Blood cultures, urine culture, urinalysis , chest x-ray and ID consult added. Ceftaroline changed to oral doxycycline. 3. post OR with acute coronary syndrome: Patient has done well since her last admission. 4. Acute kidney injury on chronic kidney disease stage III post kidney transplant, patient is still seen nephrology regular basis which will be followed daily with repeat BUN/creatinine. Sodium bicarb, Lasix IVP. Protein supplement increased to 3 times daily. 5. Acute diastolic heart failure. Patient currently on Lasix IVP. 6. diabetes mellitus type 2: Patient is on insulin pump at home. Decrease lantus and continue Accu-Chek with sliding scales coverage and scheduled Humalog added with meals. 7. hyperlipidemia: On Lipitor 20 mg daily. 8. GERD: Patient is on Zantac or H2 jai and doing well. 9. post renal transplant: Patient to continue CellCept 750 mg orally twice a day along with Prograf 2 mg twice a day and prednisone 5 mg daily. 10. hypertension: Continue atenolol 100 mg daily. Norvasc was discontinued. 11. Urinary retention for which patient required Rosario cath. Flomax added. 12. Acute blood loss anemia status post transfusion and anemia of chronic kidney disease. On Aranesp. CODE STATUS: Full code. Discharge plan: Subacute rehab. PT and OT in place. Impression and plan of care have been directed as dictated by the signing physician. Lainey Cameron nurse practitioner acting as scribe for signing physician. Time with Patient: Greater than 30
[2016-12-09] MEDS ORDERED: FUROSEMIDE 10 MG/ML 4 ML VIAL IV SCH (16:00)
[2016-12-09] MEDS: METOLAZONE 5 MG TAB PO SCH (16:12)
[2016-12-09] MEDS: FUROSEMIDE 250 MG in SODIUM CHLORIDE 0.9% 225 ML IVP SCH ×2 (16:12→16:18)
[2016-12-09 16:53] LABS: Glucose,Whole Blood 204 mg/dL (75-99)
[2016-12-09] MEDS: INSULIN LISPRO (humaLOG) 300 UNIT/3 ML VIAL SQ SCH (17:09)
--- NOTE | 2016-12-09 18:13 | P.PN ---
Subjective Principal diagnosis: Coronary artery disease 66-year-old female who has a known history of coronary artery disease was hospitalized in early November 2016 with an acute myocardial infarction. Evidence of Stenosis of Her Left Anterior Descending Artery in Her Circumflex. With a History of Renal Transplantation It Was Noted That Her Renal Function Had Worsened a Bit. Because She Was Stable Was Plan for Readmission for Her Angioplasty. She then Was Readmitted and Angioplasty Occurred on 11/23/2016. She Is Doing Modestly Well However Developed Difficulty with Pain to Her Right Groin. There Is Evidence of a Pseudoaneurysm. She's Been Taking to the Operating Room and the aneurysm has Been Repaired. She then started Having Difficulties with Increasing Tenderness Erythema and Some Scant Serous Drainage. Some Scant Bloody Drainage Inferior to the Incision from Her Prior Dressing. She then Developed a Temperature 101.2 which fortunately has resolved Feeling much better today. Is still having difficulty with volume overload but her creatinine is stable, furosemide drip is in progress Objective - Vital Signs Vital signs: Vital Signs Temp 97.4 F L 12/09/16 16:00 Pulse 70 12/09/16 16:00 Resp 19 12/09/16 16:00 BP 166/78 12/09/16 16:00 Pulse Ox 98 12/09/16 16:00 Intake & Output 12/08/16 12/09/16 12/09/16 18:59 06:59 18:59 Intake Total 100 370 894 Output Total 816 824 7805 Balance -53 -280 -912 Weight 101 kg 101 kg Intake: Intake, IV Titration 60 Amount Furosemide 250 mg In 60 Sodium Chloride 0.9% 225 ml @ 5 MG/HR 5 mls/hr IVP .Q24H [facility] Rx#:[id number] Oral 100 894 Blood Product 0 310 Rc As-1 Unit 0 310 [id number] Output: Urine 119 561 3747 Stool 3 6 Other: Voiding Method Indwelling Catheter Indwelling Catheter Indwelling Catheter # Bowel Movements 1 1 - Exam pleasant 66 -year-old woman who issitting up in the chair. The exertion made her feel somewhat HEENT: Anicteric conjunctiva are pink and moist nasal mucosa grossly intact without significant lesions, there is no thrush. Neck: The neck is supple without significant lymphadenopathy or thyromegaly. Lungs: Symmetrical air entry. Bibasilar crackles are heard. No kurt bronchial sounds. Heart: Irregular with an audible S1 and S2 soft S4 no murmur click or rub PMI was nondisplaced Abdomen: obese,Positive bowel sounds soft and nontender without palpable masses or organomegaly. There was no guarding or rebound. Extremities: The upper extremities have excellent pulses they are symmetric, no significant petechiae or telangiectasia. No splinter hemorrhages were noted. Lower extremities evidence of generalized edema. Left lower extremities hasbeen abnormalities. Neurologic she was as the recent surgical intervention to the right groin. Surgical incision is intact. There is a scant amount of drainage on the dressing. Nothing is expressible. She is a small tape injury was some bleeding it's distal on the thigh. There is some mild surrounding erythema. It is with very little tenderness. No odor is noted. There is no ascending erythema that is noted there is minimal area of discoloration to the staple line is somewhat hyperemic edema is improved no significant tissue loss is noticed. Neuro: Awake alert oriented to person place and time. There are no acute new gross focal sensory motor deficits. - Labs CBC & Chem 7: 12/09/16 06:16 12/09/16 06:00 Labs: Abnormal Lab Results - Last 24 Hours (Table) 12/08/16 12/08/16 12/09/16 Range/Units 12:04 20:59 06:00 RBC (3.80-5.40) m/uL Hgb (11.4-16.0) gm/dL Hct (34.0-46.0) % BUN 45 H (7-17) mg/dL Creatinine 2.52 H (0.52-1.04) mg/dL POC Glucose (mg/dL) 217 H (75-99) mg/dL Crossmatch See Detail 12/09/16 12/09/16 12/09/16 Range/Units 06:12 06:16 11:58 RBC 3.16 L (3.80-5.40) m/uL Hgb 9.2 L D (11.4-16.0) gm/dL Hct 28.7 L (34.0-46.0) % BUN (7-17) mg/dL Creatinine (0.52-1.04) mg/dL POC Glucose (mg/dL) 64 L 220 H (75-99) mg/dL Crossmatch 12/09/16 Range/Units 16:47 RBC (3.80-5.40) m/uL Hgb (11.4-16.0) gm/dL Hct (34.0-46.0) % BUN (7-17) mg/dL Creatinine (0.52-1.04) mg/dL POC Glucose (mg/dL) 204 H (75-99) mg/dL Crossmatch Laboratory Results WBC 8.9 k/uL (3.8-10.6) 12/09/16 06:16 RBC 3.16 m/uL (3.80-5.40) L 12/09/16 06:16 Hgb 9.2 gm/dL (11.4-16.0) L D 12/09/16 06:16 Hct 28.7 % (34.0-46.0) L 12/09/16 06:16 MCV 90.9 fL (80.0-100.0) 12/09/16 06:16 MCH 29.0 pg (25.0-35.0) 12/09/16 06:16 MCHC 31.9 g/dL (31.0-37.0) 12/09/16 06:16 RDW 14.7 % (11.5-15.5) 12/09/16 06:16 Plt Count 344 k/uL (150-450) 12/09/16 06:16 Neutrophils % 72 % 12/07/16 05:20 Lymphocytes % 14 % 12/07/16 05:20 Monocytes % 8 % 12/07/16 05:20 Eosinophils % 3 % 12/07/16 05:20 Basophils % 0 % 12/07/16 05:20 Neutrophils # 5.8 k/uL (1.3-7.7) 12/07/16 05:20 Lymphocytes # 1.1 k/uL (1.0-4.8) 12/07/16 05:20 Monocytes # 0.6 k/uL (0-1.0) 12/07/16 05:20 Eosinophils # 0.3 k/uL (0-0.7) 12/07/16 05:20 Basophils # 0.0 k/uL (0-0.2) 12/07/16 05:20 Hypochromasia Slight 12/08/16 06:50 Poikilocytosis Slight 12/09/16 06:16 PT 11.1 sec (9.0-12.0) 11/27/16 04:46 INR 1.1 (<1.1) 11/27/16 04:46 Sodium 140 mmol/L (137-145) 12/09/16 06:00 Potassium 4.3 mmol/L (3.5-5.1) 12/09/16 06:00 Chloride 103 mmol/L (98-107) 12/09/16 06:00 Carbon Dioxide 23 mmol/L (22-30) 12/09/16 06:00 Anion Gap 14 mmol/L 12/09/16 06:00 BUN 45 mg/dL (7-17) H 12/09/16 06:00 Creatinine 2.52 mg/dL (0.52-1.04) H 12/09/16 06:00 Est GFR (MDRD) Af Amer 23 (>60 ml/min/1.73 sqM) 12/09/16 06:00 Est GFR (MDRD) Non-Af 19 (>60 ml/min/1.73 sqM) 12/09/16 06:00 Glucose 83 mg/dL (74-99) 12/09/16 06:00 POC Glucose (mg/dL) 204 mg/dL (75-99) H 12/09/16 16:47 POC Glu [employer] Violeta Cardenas 12/09/16 16:[address] Glu mg/dL 154 mg/dL 11/27/16 04:46 Hemoglobin A1c 7.0 % (4.2-6.1) H 11/27/16 04:46 Osmolality 275 mosm/kg (280-301) L 11/29/16 06:12 Calcium 9.4 mg/dL (8.4-10.2) 12/09/16 06:00 Phosphorus 4.8 mg/dL (2.5-4.5) H 11/27/16 04:46 Magnesium 1.8 mg/dL (1.6-2.3) 12/03/16 06:24 Iron 16 ug/dL (37-170) L 12/07/16 05:20 TIBC 199 ug/dL (265-497) L 12/07/16 05:20 % Saturation 8.0 % (20-50) L 12/07/16 05:20 Ferritin 168 ng/mL (11-264) 11/24/16 07:48 Total Bilirubin 0.6 mg/dL (0.2-1.3) 12/07/16 05:20 AST 12 U/L (14-36) L 12/07/16 05:20 ALT 28 U/L (9-52) 12/07/16 05:20 Alkaline Phosphatase 62 U/L (38-126) 12/07/16 05:20 Total Protein 5.1 g/dL (6.3-8.2) L 12/07/16 05:20 Albumin 2.7 g/dL (3.5-5.0) L 12/07/16 05:20 Urine Color Yellow 11/28/16 09:55 Urine Appearance Clear (Clear) 11/28/16 09:55 Urine pH 5.5 (5.0-8.0) 11/28/16 09:55 Ur Specific [place] 1.010 (1.001-1.035) 11/28/16 09:55 Urine Protein 2+ (Negative) H 11/28/16 09:55 Urine Glucose (UA) Negative (Negative) 11/28/16 09:55 Urine Ketones Negative (Negative) 11/28/16 09:55 Urine Blood Negative (Negative) 11/28/16 09:55 Urine Nitrate Negative (Negative) 11/28/16 09:55 Urine Bilirubin Negative (Negative) 11/28/16 09:55 Urine Urobilinogen <2.0 mg/dL (<2.0) 11/28/16 09:55 Ur Leukocyte Esterase Negative (Negative) 11/28/16 09:55 Urine WBC 1 /hpf (0-5) 11/28/16 09:55 Urine Mucus Rare /hpf (None) H 11/28/16 09:55 Urine Osmolality 255 mosm/kg (50-1400) 11/29/16 11:26 Ur Random Sodium <5 mmol/L (30-90) L 11/29/16 11:26 Ur Random Potassium 23.4 mmol/L 11/29/16 11:26 Blood Type A Positive 12/08/16 12:04 Blood Type Confirm A Positive 11/24/16 20:03 Blood Type Recheck No 12/08/16 12:04 Antibody Screen NEGATIVE 12/08/16 12:04 Crossmatch See Detail 12/08/16 12:04 Spec Expiration Date 12/11/2016 - 2304 12/08/16 12:04 Microbiology 11/28/16 10:03 Blood Blood Culture - Final No Growth after 144 hours 11/28/16 08:53 Blood Blood Culture - Final No Growth after 144 hours 11/28/16 09:55 Urine,Catheterized Urine Culture - Final Assessment and Plan (1) Fever Narrative/Plan: 66-year-old male presents to Hospital after her myocardial infarction earlier this year. She presented for her cardiac intervention and stenting was performed to the LAD and circumflex. She been doing well but was having some difficulty with her right groin. In that she developed a temperature 101.2. She has been seen by vascular surgery and repair of her pseudoaneurysms occurred. As evidence of some fever 101.2 erythema and tenderness to the site. With this is concerned infection at that area. She has a known history of vancomycin ALLERGY. With this Ceftaroline 400 mg IV piggyback every 12 hours as utilized. She give coverage for staph including MRSA as well as some routine gram-negative organisms such as E. coli that are in the groin. There is no drainage at this time for culture. Blood cultures are in process. And are negative so far She is symptomatically stable. With her ALLERGIES since she is improving as far as a cellulitis to the right leg Ceftaroline is discontinued and doxycycline 100 mg twice per day can be utilized She is feeling better except for shortness of breath which has been improving. Does have a history of renal transplantation. Her creatinine is up from her baseline of 1.6, 2.52 today. She is monitored closely from nephrology. IV lasix continues Receiving diuresis for her significant volume overload. Rosario is in place to measure urinary output. Status: Acute (2) Pseudoaneurysm of right femoral artery Status: Acute (3) Cellulitis of right thigh Status: Acute
[2016-12-09 21:47] LABS: Glucose,Whole Blood 161 mg/dL (75-99)
[2016-12-09] MEDS: ONDANSETRON 4 MG/2 ML VIAL IVP PRN (22:06)
[2016-12-10 05:59] LABS: Glucose,Whole Blood 174 mg/dL (75-99)
[2016-12-10] MEDS: FERROUS SULFATE 325 MG TAB PO SCH ×2 (06:55→17:06)
--- NOTE | 2016-12-10 06:56 | XR ---
EXAMINATION TYPE: XR chest 2V DATE OF EXAM: 12/10/2016 6:41 AM COMPARISON: Chest x-ray from 2 days ago. HISTORY: CHF progress study. TECHNIQUE: Frontal and lateral views of the chest are obtained. FINDINGS: There are persistent small to moderate size bilateral pleural effusions and associated com pressive atelectasis and/or infiltrate. Mild central vascular congestion remains present. The cardia c silhouette size is stable and upper limits of normal. The osseous structures are intact. IMPRESSION: Overall stable findings, persistent small to moderate-sized bilateral pleural effusions and mild to moderate central vascular congestion all redemonstrated. No significant change from prior . Consider fluid overload state versus CHF exacerbation.
[2016-12-10] MEDS: INSULIN LISPRO (humaLOG) 300 UNIT/3 ML VIAL SQ SCH ×3 (07:24→17:05)
[2016-12-10] MEDS: INSULIN LISPRO SQ SCH ×4 (07:24→21:19)
[2016-12-10 07:37] LABS: CH 29.7; HCT 27.6 % (34.0-46.0); HDW 3.25; HGB 8.7 gm/dL (11.4-16.0); MCH 28.6 pg (25.0-35.0); MCHC 31.6 g/dL (31.0-37.0); MCV 90.6 fL (80.0-100.0); Mean Platelet Volume 6.9; RBC 3.05 m/uL (3.80-5.40); RDW 14.5 % (11.5-15.5); WBC 8.1 k/uL (3.8-10.6)
[2016-12-10 08:00] LABS: Calcium 9.4 mg/dL (8.4-10.2); Potassium 3.8 mmol/L (3.5-5.1)
[2016-12-10] MEDS: TAMSULOSIN 0.4 MG CAP.ER.24H PO SCH (08:22)
[2016-12-10] MEDS: ATENOLOL 50 MG TAB PO SCH (08:23)
[2016-12-10] MEDS: ASPIRIN 81 MG CHEW PO SCH (08:23)
[2016-12-10] MEDS: ATORVASTATIN 80 MG TAB PO SCH (08:23)
[2016-12-10] MEDS: DOXYCYCLINE 50 MG CAP PO SCH ×2 (08:23→20:15)
[2016-12-10] MEDS: hydrALAZINE HCL 50 MG TAB PO SCH ×4 (08:24→20:15)
[2016-12-10] MEDS: LACTULOSE 20 GM/30 ML CUP PO SCH ×3 (08:24→21:18)
[2016-12-10] MEDS: CLOPIDOGREL 75 MG TAB PO SCH (08:24)
[2016-12-10] MEDS: METOLAZONE 5 MG TAB PO SCH (08:25)
[2016-12-10] MEDS: SODIUM BICARBONATE TAB 650 MG TAB PO SCH ×2 (08:25→20:15)
[2016-12-10] MEDS: TACROLIMUS 1 MG CAP PO SCH ×2 (08:25→20:15)
[2016-12-10] MEDS: MYCOPHENOLATE MOFETIL 250 MG CAP PO SCH ×2 (08:25→20:15)
[2016-12-10] MEDS: RANITIDINE SYRUP 150 MG/10 ML CUP PO SCH (08:25)
[2016-12-10] MEDS: predniSONE 5 MG TAB PO SCH (08:26)
[2016-12-10] MEDS ORDERED: INSULIN GLARGINE 100 UNIT/ML 10 ML VIAL SQ SCH (09:00)
[2016-12-10] MEDS: LEVALBUTEROL NEB 1.25 MG/3 ML AMP INHALATION SCH ×4 (09:16→20:50)
[2016-12-10] MEDS: CHOLECALCIFEROL 1,000 UNIT TAB PO SCH (11:01)
--- NOTE | 2016-12-10 11:02 | P.PN ---
Subjective 66-year-old female one of my office patient of known for long time was hospitalized in November 05 of November 10, 2016 for acute myocardial infarction with acute coronary syndrome ended up going for angiogram showed significant stenosis in the LAD and circumflex. Patient kidney function had declined slightly ended up going home after being hydrated and watch her kidney function was seen in the office and see Dr. Ahmadi and patient brought to the hospital on 11/23/2016 for an angioplasty, procedure was done successfully and patient is resting comfortably with no complaint, nephrology consultation was requested and BUN/creatinine to be done an daily basis for the next 2 days. Patient will be admitted for 48 hours. 11/25: Hemoglobin 7.1, BUN 36 and creatinine 1.9. She is status post PTCA and stenting of a complex torturous mid circumflex coronary artery. Nephrology is following. She is continued on Mucomyst and scheduled for IV Ferrlecit 3 days. Patient has developed a right common femoral hematoma and pseudoaneurysm. Dr. Ybarra has evaluated the patient and she is a candidate for thrombin injection of the right femoral pseudoaneurysm. 11/26: Hemoglobin 6.5, BUN 41 and creatinine 2.26. She is continued on Ferrlecit and scheduled for transfusion 1 unit packed RBCs. IV fluids at 50 mL per hour. Patient will complete Mucomyst today. Repeat Ultrasound of the groin today. Bladder scan as needed. 11/27: Yesterday patient underwent repair of perforation of a right profunda femoris artery and evacuation of right groin hematoma with Dr. Ybarra and was subsequently admitted to the ICU. She has a Rosario catheter in place and urine output has been adequate. Rosario will be discontinued this morning. She states she has much decreased pain to the right groin area. She denies any chest pain , shortness of breath. PT is working with her today. Patient is receiving her third dose of Ferrlecit. She has completed her course of Mucomyst. IV fluids at 50 mL per hour. Repeat BUN 40 and creatinine 2.3. Repeat chest x-ray shows borderline cardiomegaly and interstitial prominence which may be chronic. Correlate to exclude mild CHF. 11/28: Patient states that the groin site remains better in regards to pain. Site is warm to the touch. She did have a temperature of 101.2 this morning blood cultures, urinalysis urine culture and chest x-ray have been ordered. Patient does not have a cough or sputum production. She is complaining of feeling achy all over. She has minimal urine output Rosario was removed last night. Morning blood sugar was 95 and patient is on insulin pump. BUN 40 with creatinine 2.7 and hemoglobin 8.4. Infectious disease consult added. Patient is complaining of sore throat for which Cepacol lozenges added. 11/29: Patient is more comfortable able to ambulate out of bed with help her hemoglobin dropped down slightly but she is feeling better she was transfer out of the intensive care unit yesterday. No need for blood transfusion yet but hemoglobin is below 8 we'll wait till tomorrow repeat another CBC if it remain in the mid 7 transfusion be done. Expectation for discharge hopefully over the next 48 hours creatinine has plateau over the last 2 days with no significant declining kidney function at this point 11/30: Ultrasound venous Doppler duplex of the right lower extremity is negative for DVT. Patient complains of nausea this morning for which Zofran has been added. She was given Lasix 60 mg IV 1. She states her breathing status is okay. Repeat BUN 40 and creatinine 2.8, potassium 4.1. Hemoglobin 7.8. She is currently on Ceftaroline and followed by Dr. Rendon. 12/01: BUN today is [address] Rendon as recommended most likely doxycycline at the time of discharge.she is status post Lasix 1 dose today. She is on fluid restriction.she hasn't some problem with urinary retention for which she was straight cathed.nephrology has started Flomax. 12/02: BUN 42 and creatinine 2.79. Hemoglobin 7.4. Fluid balance is -950. Weight is same from yesterday. She states she feels puffy. No lasix today. 12/03: Nephrology has continue patient on IV Lasix. Norvasc discontinued as patient's blood pressure is on the low side. She is continued on sodium bicarb. Kidney function continues to improve with BUN 39 creatinine 2.62. Hemoglobin is stable at 7.7. Blood sugars running 110-163. 12/04: Bun 39 and creatinine 2.6. Good urine output. She is continued on Lasix 40 mg IV twice daily. Weight is slightly up today. Aranesp was started. 12/05: Patient is sitting up in chair at her was at the bedside, the patient continues to have significant anasarca all over her body with significant bruising to the right upper extremity yet her creatinine is about the same 2.6. 2: Patient is complaining of significant shortness of breath, as well as significant swelling in both lower extremities and upper extremities as a matter fact she could not even walk a few steps without getting extremely short of breath, she was given Lasix 60 minute gram IV push 1 this will be repeated again in 12 hours. 12/07: Repeat hemoglobin 7.8, BUN [address] Ybarra recommending sutures out in one week and follow-up in the office on December 14. Patient is having worsening fluid overload, shortness of breath and lethargy and started on lasix drip. IV antibiotics changed to oral. Protein supplement increased to three times daily. She denies any chest pain. 12/08: BUN 44 and creatinine 2.51. Hemoglobin 7.4 and one unit of blood ordered. Blood sugars this morning were low at 61 and repeat 67 and 93. She has not been eating much. Lantus decreased to 18 units. Weight today is 102.1 kg down only 0.2 kg from yesterday. Urine out is improved. She remains on Lasix drip. She did not sleep well last night and was uncomfortable in bed. Patient states she feels better today. 12/09: BUN 45 and creatinine 2.52. Hemoglobin 9.2. The blood glucose this morning was 64 and repeat 75. And Lantus will be decreased again down to 16 units with scheduled Humalog 3 units with each meal and scale. Weight is down 1 kg from yesterday. Lasix drip changed over to Lasix 40 mg IV every 8 hours. Repeat chest x-ray ordered for the morning. Patient has SALVATORE hose in place are cutting into legs and Clarence wraps will be requested. 12/10: Patient was continued on Lasix drip but increased to 10 mg/h by nephrology. Repeat chest x-ray shows overall stable findings with persistent small to moderate-sized bilateral pleural effusions and mild to moderate central vascular congestion all redemonstrated. No significant change from prior. Capillary blood glucose running between 161 and 189. BUN 44 and creatinine 2.48. Breathing is improving. She does have shortness of breath worsening with exertion. She was able to get up and take a shower this morning Objective - Vital Signs Vital signs: Vital Signs Temp 97.7 F 12/10/16 08:00 Pulse 68 12/10/16 08:00 Resp 18 12/10/16 08:00 BP 171/74 12/10/16 08:00 Pulse Ox 91 L 12/10/16 08:00 Intake & Output 12/09/16 12/10/16 12/10/16 18:59 06:59 18:59 Intake Total 894 180 Output Total 1806 2203 Balance - Weight 101 kg 98.8 kg Intake: IV 180 0.9 NS at 20 ml/hr 60 Furosemide 250 mg In 120 Sodium Chloride 0.9% 225 ml @ 10 MG/HR 10 mls/hr IVP .Q24H [facility] Rx#: [id number] Oral 894 Output: Urine 1800 2200 Stool 6 3 Other: Voiding Method Indwelling Catheter Indwelling Catheter Indwelling Catheter # Voids 0 # Bowel Movements 1 1 - Exam General appearance: no average body habitus, cooperative, no disheveled, no mild distress, no morbidly obese, no acute distress, no obese, no severe distress, no thin - EENT Eyes: no abnormal pupil, no anicteric sclerae, no disc margins sharp, no edentulous, no EOMI, no PERRLA, no fundus normal, no photophobia, no dentition normal, no poor dentition, no ptosis, no scleral icterus, normal appearance ENT: no hard of hearing, no hearing grossly normal, no NA/AT, normal oropharynx , no other, no pharyngeal erythema, no thrush, no tonsillar exudates, no tonsillar swelling Ears: bilateral: normal - Neck Neck: no lymphadenopathy, normal ROM, no other, no rigidity, no stridor, no thyromegaly Carotids: bilateral: upstroke normal Thyroid: bilateral: normal size - Respiratory Respiratory: bilateral: CTA, diminished - Cardiovascular Rhythm: regular Heart sounds: normal: S1, S2 Abnormal Heart Sounds: systolic murmur - Gastrointestinal General gastrointestinal: no absent bowel sounds, decreased bowel sounds, no distended, no hepatomegaly, no hyperactive bowel sounds, normal bowel sounds, no organomegaly, no rigid, no scaphoid, soft, no splenomegaly, no tenderness, no umbilical hernia, no ventral hernia - Integumentary Integumentary: Large mass in the right groin, less tender, no cyanotic, no decreased turgor, no flushed, no jaundiced, normal, no normal turgor, pale, rash , no ulcer - Neurologic Neurologic: CNII-XII intact - Musculoskeletal Musculoskeletal: gait normal, generalized weakness, strength equal bilaterally, no right sided weakness, no left sided weakness - Psychiatric Psychiatric: A&O x's 3, appropriate affect, no intact judgment & insight - Labs CBC & Chem 7: 12/10/16 06:57 12/10/16 06:57 Labs: Abnormal Lab Results - Last 24 Hours (Table) 12/09/16 12/09/16 12/09/16 Range/Units 11:58 16:47 21:45 RBC (3.80-5.40) m/uL Hgb (11.4-16.0) gm/dL Hct (34.0-46.0) % Chloride (98-107) mmol/L BUN (7-17) mg/dL Creatinine (0.52-1.04) mg/dL Glucose (74-99) mg/dL POC Glucose (mg/dL) 220 H 204 H 161 H (75-99) mg/dL 12/10/16 12/10/16 12/10/16 Range/Units 05:58 06:57 06:57 RBC 3.05 L (3.80-5.40) m/uL Hgb 8.7 L (11.4-16.0) gm/dL Hct 27.6 L (34.0-46.0) % Chloride 97 L (98-107) mmol/L BUN 44 H (7-17) mg/dL Creatinine 2.48 H (0.52-1.04) mg/dL Glucose 189 H (74-99) mg/dL POC Glucose (mg/dL) 174 H (75-99) mg/dL Assessment and Plan Plan: 1 CAD: With multiple coronary artery disease patent lesion in the RCA with stent still open, had 2 more lesion 1 in the LAD and one in the circumflex which Dr. Ahmadi has done an angioplasty and stent placement successfully. 2. Right common femoral hematoma and pseudoaneurysm with early sepsis and cellulitis with possible wound infection developing. Dr. Ybarra on consult. Plan for thrombin injection of the right femoral pseudoaneurysm. Status post repair of pseudoaneurysm right groin. Blood cultures, urine culture, urinalysis , chest x-ray and ID consult added. Ceftaroline changed to oral doxycycline. 3. post NH with acute coronary syndrome: Patient has done well since her last admission. 4. Acute kidney injury on chronic kidney disease stage III post kidney transplant, patient is still seen nephrology regular basis which will be followed daily with repeat BUN/creatinine. Sodium bicarb, Lasix gtt. Protein supplement increased to 3 times daily. 5. Acute diastolic heart failure. Patient currently on Lasix gtt. 6. diabetes mellitus type 2: Patient is on insulin pump at home. Decrease lantus and continue Accu-Chek with sliding scales coverage and scheduled Humalog added with meals. 7. hyperlipidemia: On Lipitor 20 mg daily. 8. GERD: Patient is on Zantac or H2 jai and doing well. 9. post renal transplant: Patient to continue CellCept 750 mg orally twice a day along with Prograf 2 mg twice a day and prednisone 5 mg daily. 10. hypertension: Continue atenolol 100 mg daily. Norvasc was discontinued. 11. Urinary retention for which patient required Rosario cath. Flomax added. 12. Acute blood loss anemia status post transfusion and anemia of chronic kidney disease. On Aranesp. CODE STATUS: Full code. Discharge plan: Jim. PT and OT in place. Impression and plan of care have been directed as dictated by the signing physician. Lainey Cameron nurse practitioner acting as scribe for signing physician. Time with Patient: Greater than 30
--- NOTE | 2016-12-10 11:12 | P.PN ---
Subjective Patient is seen in follow-up for acute kidney injury on chronic kidney disease. Renal function is stable with creatinine at 2.5 today. Currently maintained on Lasix drip running at 10 mL an hour. She is diuresing well and maintaining a net negative fluid balance. Her weight is down over 2 kg since yesterday. Appetite is good. No vomiting or diarrhea. Vital signs are stable. General: The patient appeared well nourished and normally developed. HEENT: Head exam is unremarkable. Neck is without jugular venous distension. LUNGS: Lungs are clear to auscultation and percussion. Breath sounds decreased. HEART: Rate and Rhythm are regular. First and second heart sounds normal. No murmurs, rubs or gallops. ABDOMEN: Abdominal exam reveals normal bowel sounds. Non-tender and non- distended. No evidence of peritonitis. EXTREMITITES: 1-2+ edema. Objective - Vital Signs Vital signs: Vital Signs Temp 97.7 F 12/10/16 08:00 Pulse 72 12/10/16 11:05 Resp 17 12/10/16 11:05 BP 164/78 12/10/16 11:05 Pulse Ox 94 L 12/10/16 11:05 Intake & Output 12/09/16 12/10/16 12/10/16 18:59 06:59 18:59 Intake Total 894 180 360 Output Total 1806 2203 Balance - 360 Weight 101 kg 98.8 kg Intake: IV 180 0.9 NS at 20 ml/hr 60 Furosemide 250 mg In 120 Sodium Chloride 0.9% 225 ml @ 10 MG/HR 10 mls/hr IVP .Q24H [facility] Rx#: [id number] Oral 894 360 Output: Urine 1800 2200 Stool 6 3 Other: Voiding Method Indwelling Catheter Indwelling Catheter Indwelling Catheter # Voids 0 # Bowel Movements 1 1 - Labs CBC & Chem 7: 12/10/16 06:57 12/10/16 06:57 Labs: Abnormal Lab Results - Last 24 Hours (Table) 12/09/16 12/09/16 12/09/16 Range/Units 11:58 16:47 21:45 RBC (3.80-5.40) m/uL Hgb (11.4-16.0) gm/dL Hct (34.0-46.0) % Chloride (98-107) mmol/L BUN (7-17) mg/dL Creatinine (0.52-1.04) mg/dL Glucose (74-99) mg/dL POC Glucose (mg/dL) 220 H 204 H 161 H (75-99) mg/dL 12/10/16 12/10/16 12/10/16 Range/Units 05:58 06:57 06:57 RBC 3.05 L (3.80-5.40) m/uL Hgb 8.7 L (11.4-16.0) gm/dL Hct 27.6 L (34.0-46.0) % Chloride 97 L (98-107) mmol/L BUN 44 H (7-17) mg/dL Creatinine 2.48 H (0.52-1.04) mg/dL Glucose 189 H (74-99) mg/dL POC Glucose (mg/dL) 174 H (75-99) mg/dL Assessment and Plan Plan: Assessment: #1. Chronic kidney disease stage III with baseline creatinine near 1.6. #2. 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 #3. Diabetes mellitus. #4. Coronary artery disease. #5. Anemia status post packed red blood cell transfusion. #6. Nonoliguric acute kidney injury from contrast-induced nephropathy as well as anemia. Also had urinary retention. Creatinine stable at 2.48 today. #7. Pseudoaneurysm of the groin status post evacuation of hematoma on November 26. Plan: Continue Lasix drip to be run at 10 mL an hour for the next 24 hours. Daily weights. Maintain low-salt diet and 1.2 L fluid restriction. Continue with immunosuppressants. Maintained on CellCept, Prograf and prednisone.
--- NOTE | 2016-12-10 11:49 | P.PN ---
Subjective Principal diagnosis: Circumflex stent This is a pleasant 66-year-old female who was admitted to the hospital , underwent angioplasty, subsequently developed a pseudoaneurysm, requiring thrombin injection. Patient has a history of a kidney transplant, currently on IV Lasix drip as well as Zaroxolyn 5 mg daily Weight is down 3 kg today. Nephrology is following along closely. Creatinine today 2.4. Patient is sitting up in the chair at the time of my examination, overall feeling much better today. Breathing much improved. Blood pressure 160/78 this morning. Chest x-ray performed today revealed overall stable findings, persistent small to moderate sized bilateral pleural effusions and mild to moderate central vascular congestion present. We will add a small dose of Norvasc to her medication regime for more optimal blood pressure control. Objective - Vital Signs Vital signs: Vital Signs Temp 97.7 F 12/10/16 08:00 Pulse 72 12/10/16 11:05 Resp 17 12/10/16 11:05 BP 164/78 12/10/16 11:05 Pulse Ox 94 L 12/10/16 11:05 Intake & Output 12/09/16 12/10/16 12/10/16 18:59 06:59 18:59 Intake Total 894 180 360 Output Total 1806 2203 Balance - 360 Weight 101 kg 98.8 kg Intake: IV 180 0.9 NS at 20 ml/hr 60 Furosemide 250 mg In 120 Sodium Chloride 0.9% 225 ml @ 10 MG/HR 10 mls/hr IVP .Q24H [facility] Rx#: [id number] Oral 894 360 Output: Urine 1800 2200 Stool 6 3 Other: Voiding Method Indwelling Catheter Indwelling Catheter Indwelling Catheter # Voids 0 # Bowel Movements 1 1 - Exam PHYSICAL EXAMINATION: HEENT: Head is atraumatic, normocephalic. Pupils equal, round. Neck is supple. There is no elevated jugular venous pressure. HEART EXAMINATION: Heart S1, S2 normal. No murmur or gallop heard. CHEST EXAMINATION: Lungs are clear with diminished air entry to bilateral bases ABDOMEN: Soft, obese, nontender. Bowel sounds are heard. No organomegaly noted. EXTREMITIES: 2+ peripheral pulses with large amount of ecchymosis from the groin down to the knee, soft, no hematoma, no further drainage, mild tenderness. 2+ edema bilaterally NEUROLOGIC patient is awake, alert and oriented -3. . - Labs CBC & Chem 7: 12/10/16 06:57 12/10/16 06:57 Labs: Abnormal Lab Results - Last 24 Hours (Table) 12/09/16 12/09/16 12/09/16 Range/Units 11:58 16:47 21:45 RBC (3.80-5.40) m/uL Hgb (11.4-16.0) gm/dL Hct (34.0-46.0) % Chloride (98-107) mmol/L BUN (7-17) mg/dL Creatinine (0.52-1.04) mg/dL Glucose (74-99) mg/dL POC Glucose (mg/dL) 220 H 204 H 161 H (75-99) mg/dL 12/10/16 12/10/16 12/10/16 Range/Units 05:58 06:57 06:57 RBC 3.05 L (3.80-5.40) m/uL Hgb 8.7 L (11.4-16.0) gm/dL Hct 27.6 L (34.0-46.0) % Chloride 97 L (98-107) mmol/L BUN 44 H (7-17) mg/dL Creatinine 2.48 H (0.52-1.04) mg/dL Glucose 189 H (74-99) mg/dL POC Glucose (mg/dL) 174 H (75-99) mg/dL Assessment and Plan (1) Presence of stent in LAD coronary artery Status: Acute (2) Presence of stent in left circumflex coronary artery Status: Acute (3) Femoral artery pseudoaneurysm complicating cardiac catheterization Status: Acute (4) Renal insufficiency Status: Acute (5) Hx of kidney transplant Status: Acute (6) Diabetes Status: Acute (7) HTN (hypertension) Status: Acute (8) Hyperlipemia Status: Acute (9) Anemia Status: Acute Plan: From cardiology's perspective, we will recommend to continue the patient on current dose of IV Lasix drip along with Zaroxolyn. Continue to monitor intake and output along with daily weights. We will also add a small dose of Norvasc to her medication regime for more optimal blood pressure control. DNP note has been reviewed, I agree with a documented findings and plan of care. Patient was seen and examined.
[2016-12-10 12:11] LABS: Glucose,Whole Blood 281 mg/dL (75-99)
--- NOTE | 2016-12-10 12:12 | P.PN ---
Subjective This is a very pleasant 66-year-old female patient who follows with Dr. Cordova as her primary care physician. She has a history of coronary artery disease with previous stent placements, diabetes mellitus utilizing insulin pump, gastroesophageal reflux disease, hyperlipidemia, hypertension, chronic renal disease stage III with previous renal transplant, chronic anemia. She had developed an acute myocardial infarction and was hospitalized from November 05 through the 2016. Her cardiac catheterization revealed significant stenosis in the LAD and circumflex. Her renal function had declined and she was discharged to home and brought back here 11/23/2016 for PTCA and stenting of a complex mid circumflex coronary artery. Following the procedure she had developed significant bleeding and a large hematoma that was eventually controlled. There was evidence of a pseudoaneurysm via ultrasound. She was seen and evaluated by Dr. Benedict from vascular surgery. Thrombin injection was infused to the right femoral pseudoaneurysm on 11/25/2016. Follow-up ultrasound revealed failed thrombin injection and the patient had undergone a repair of perforation of a right profunda femoris artery and evacuation of the right groin hematoma yesterday. She was seen initially in consultation for critical care management on 11/27/2016. She is seen again today 12/09/2016 on the selective care unit. She has an ongoing issues with congestive heart failure and bilateral pleural effusions. She was seen again in reconsultation by Dr. Oneill. Today's chest x-ray does reveal continued small to moderate bilateral pleural effusions, left greater than right. There are no plans for thoracentesis at this time. The patient is in no acute pulmonary distress. She is maintaining good O2 saturation saturations in the 90s on room air. She is currently on a Lasix drip at 10 mg per hour. She remains on metolazone at 5 mg daily. She remains in a negative balance. She has been having ongoing anemia. She is status post 4 units of packed red blood cell infusions this admission. Current hemoglobin 8.7. Objective - Vital Signs Vital signs: Vital Signs Temp 97.7 F 12/10/16 08:00 Pulse 72 12/10/16 11:05 Resp 17 12/10/16 11:05 BP 164/78 12/10/16 11:05 Pulse Ox 94 L 12/10/16 11:05 Intake & Output 12/09/16 12/10/16 12/10/16 18:59 06:59 18:59 Intake Total 894 180 360 Output Total 1806 2203 Balance - -2022 360 Weight 101 kg 98.8 kg Intake: IV 180 0.9 NS at 20 ml/hr 60 Furosemide 250 mg In 120 Sodium Chloride 0.9% 225 ml @ 10 MG/HR 10 mls/hr IVP .Q24H [facility] Rx#: [id number] Oral 894 360 Output: Urine 1800 2200 Stool 6 3 Other: Voiding Method Indwelling Catheter Indwelling Catheter Indwelling Catheter # Voids 0 # Bowel Movements 1 1 - Exam GENERAL EXAM: Alert, comfortable in no apparent distress. HEAD: Normocephalic. EYES: Normal reaction of pupils, equal size. NOSE: Clear with pink turbinates. THROAT: No erythema or exudates. NECK: No masses, no JVD. CHEST: No chest wall deformity. LUNGS: Equal air entry with crackles in the posterior bases.. CVS: S1 and S2 normal with no audible murmurs, regular rhythm. ABDOMEN: Obese. Normal bowel sounds, no guarding or rigidity. Extremities: There is 1-2+ lower extremity peripheral edema. No clubbing, no cyanosis. Peripheral pulses are intact. - Labs CBC & Chem 7: 12/10/16 06:57 12/10/16 06:57 Labs: Abnormal Lab Results - Last 24 Hours (Table) 12/09/16 12/09/16 12/09/16 Range/Units 11:58 16:47 21:45 RBC (3.80-5.40) m/uL Hgb (11.4-16.0) gm/dL Hct (34.0-46.0) % Chloride (98-107) mmol/L BUN (7-17) mg/dL Creatinine (0.52-1.04) mg/dL Glucose (74-99) mg/dL POC Glucose (mg/dL) 220 H 204 H 161 H (75-99) mg/dL 12/10/16 12/10/16 12/10/16 Range/Units 05:58 06:57 06:57 RBC 3.05 L (3.80-5.40) m/uL Hgb 8.7 L (11.4-16.0) gm/dL Hct 27.6 L (34.0-46.0) % Chloride 97 L (98-107) mmol/L BUN 44 H (7-17) mg/dL Creatinine 2.48 H (0.52-1.04) mg/dL Glucose 189 H (74-99) mg/dL POC Glucose (mg/dL) 174 H (75-99) mg/dL Assessment and Plan Plan: Impression: #1 Coronary artery disease status post stenting to the mid circumflex. #2 Right profunda femoris perforation with hematoma. Failed thrombin injection. Status post open repair. #3 Postprocedure anemia requiring 4 units of packed red blood cells. Her hemoglobin 8.7. #4 Previous history of coronary artery disease with stent placements. #5 Diabetes mellitus requiring insulin pump. #6 Chronic renal disease, stage III with previous renal transplant, maintained on CellCept and prednisone. #7 Hyperlipidemia. #8 Hypertension. #9 Bilateral pleural effusions more so on the left secondary to diastolic congestive heart failure. The patient has preserved left ventricular systolic function with estimated ejection fraction 60-65%. Mild pulmonary hypertension with an RVSP of 40 mmHg. Plan: The patient was seen and evaluated by Dr. Oneill. Today's chest x-ray and labs were reviewed. The patient does remain stable from the pulmonary standpoint. No worsening shortness of breath, cough or congestion. Maintained on room air. No plans for thoracentesis at this time. We will continue with the Lasix drip at 10 mg per hour. Continue metallic zone. We will increase her activity as tolerated. We'll continue to follow and make further recommendations based on her clinical status.
[2016-12-10] MEDS: amLODIPine 5 MG TAB PO SCH (12:24)
[2016-12-10] MEDS: DARBEPOETIN ALFA 40 MCG/0.4 ML SYRINGE SQ SCH (14:25)
[2016-12-10] MEDS: FUROSEMIDE 250 MG in SODIUM CHLORIDE 0.9% 225 ML IVP SCH (14:25)
[2016-12-10 16:52] LABS: Glucose,Whole Blood 202 mg/dL (75-99)
[2016-12-10 20:45] LABS: Glucose,Whole Blood 262 mg/dL (75-99)
--- NOTE | 2016-12-10 21:17 | P.PN ---
Subjective Principal diagnosis: Coronary artery disease 66-year-old female who has a known history of coronary artery disease was hospitalized in early November 2016 with an acute myocardial infarction. Evidence of Stenosis of Her Left Anterior Descending Artery in Her Circumflex. With a History of Renal Transplantation It Was Noted That Her Renal Function Had Worsened a Bit. Because She Was Stable Was Plan for Readmission for Her Angioplasty. She then Was Readmitted and Angioplasty Occurred on 11/23/2016. She Is Doing Modestly Well However Developed Difficulty with Pain to Her Right Groin. There Is Evidence of a Pseudoaneurysm. She's Been Taking to the Operating Room and the aneurysm has Been Repaired. She then started Having Difficulties with Increasing Tenderness Erythema and Some Scant Serous Drainage. Some Scant Bloody Drainage Inferior to the Incision from Her Prior Dressing. She then Developed a Temperature 101.2 several days ago which fortunately has resolved Feeling much better today. Is much less short of breath with a Lasix drip. Has had excellent urinary output. Feels much better overall Objective - Vital Signs Vital signs: Vital Signs Temp 98.4 F 12/10/16 15:24 Pulse 68 12/10/16 16:29 Resp 16 12/10/16 16:00 BP 136/62 12/10/16 15:24 Pulse Ox 94 L 12/10/16 15:24 Intake & Output 12/10/16 12/10/16 12/11/16 06:59 18:59 06:59 Intake Total 180 1380 Output Total 2203 5209 Balance -2022 Weight 98.8 kg 98.8 kg Intake: IV 180 220 0.9 NS at 20 ml/hr 60 140 Furosemide 250 mg In 120 80 Sodium Chloride 0.9% 225 ml @ 10 MG/HR 10 mls/hr IVP .Q24H [facility] Rx#: [id number] Oral 1160 Output: Urine 2200 5200 Uretheral (Rosario) 2800 Stool 3 9 Other: Voiding Method Indwelling Catheter Indwelling Catheter # Voids 0 0 # Bowel Movements 1 - Exam pleasant 66 -year-old woman who issitting up in the chair. The exertion made her feel somewhat HEENT: Anicteric conjunctiva are pink and moist nasal mucosa grossly intact without significant lesions, there is no thrush. Neck: The neck is supple without significant lymphadenopathy or thyromegaly. Lungs: Symmetrical air entry. Bibasilar crackles are heard. No kurt bronchial sounds. Heart: Irregular with an audible S1 and S2 soft S4 no murmur click or rub PMI was nondisplaced Abdomen: obese,Positive bowel sounds soft and nontender without palpable masses or organomegaly. There was no guarding or rebound. Extremities: The upper extremities have excellent pulses they are symmetric, no significant petechiae or telangiectasia. No splinter hemorrhages were noted. Lower extremities evidence of generalized edema. Left lower extremities hasbeen abnormalities. Neurologic she was as the recent surgical intervention to the right groin. Surgical incision is intact. There is a scant amount of drainage on the dressing. Nothing is expressible. She is a small tape injury was some bleeding it's distal on the thigh. There is some mild surrounding erythema. It is with very little tenderness. No odor is noted. There is no ascending erythema that is noted there is minimal area of discoloration to the staple line is somewhat hyperemic edema is improved no significant tissue loss is noticed. Neuro: Awake alert oriented to person place and time. There are no acute new gross focal sensory motor deficits. - Labs CBC & Chem 7: 12/10/16 06:57 12/10/16 06:57 Labs: Abnormal Lab Results - Last 24 Hours (Table) 12/09/16 12/10/16 12/10/16 Range/Units 21:45 05:58 06:57 RBC 3.05 L (3.80-5.40) m/uL Hgb 8.7 L (11.4-16.0) gm/dL Hct 27.6 L (34.0-46.0) % Chloride (98-107) mmol/L BUN (7-17) mg/dL Creatinine (0.52-1.04) mg/dL Glucose (74-99) mg/dL POC Glucose (mg/dL) 161 H 174 H (75-99) mg/dL 12/10/16 12/10/16 12/10/16 Range/Units 06:57 12:03 16:46 RBC (3.80-5.40) m/uL Hgb (11.4-16.0) gm/dL Hct (34.0-46.0) % Chloride 97 L (98-107) mmol/L BUN 44 H (7-17) mg/dL Creatinine 2.48 H (0.52-1.04) mg/dL Glucose 189 H (74-99) mg/dL POC Glucose (mg/dL) 281 H 202 H (75-99) mg/dL 12/10/16 Range/Units 20:44 RBC (3.80-5.40) m/uL Hgb (11.4-16.0) gm/dL Hct (34.0-46.0) % Chloride (98-107) mmol/L BUN (7-17) mg/dL Creatinine (0.52-1.04) mg/dL Glucose (74-99) mg/dL POC Glucose (mg/dL) 262 H (75-99) mg/dL Microbiology 11/28/16 10:03 Blood Blood Culture - Final No Growth after 144 hours 11/28/16 08:53 Blood Blood Culture - Final No Growth after 144 hours 11/28/16 09:55 Urine,Catheterized Urine Culture - Final Assessment and Plan (1) Fever Narrative/Plan: 66-year-old male presents to Hospital after her myocardial infarction earlier this year. She presented for her cardiac intervention and stenting was performed to the LAD and circumflex. She been doing well but was having some difficulty with her right groin. In that she developed a temperature 101.2. She has been seen by vascular surgery and repair of her pseudoaneurysms occurred. As evidence of some fever 101.2 erythema and tenderness to the site. With this is concerned infection at that area. She has a known history of vancomycin ALLERGY. With this Ceftaroline 400 mg IV piggyback every 12 hours as utilized. She give coverage for staph including MRSA as well as some routine gram-negative organisms such as E. coli that are in the groin. There is no drainage at this time for culture. Blood cultures are in process. And are negative so far She is symptomatically stable. With her ALLERGIES since she is improving as far as a cellulitis to the right leg Ceftaroline is discontinued and doxycycline 100 mg twice per day can be utilized She is feeling better except for shortness of breath which has been improving. Does have a history of renal transplantation. Her creatinine is up from her baseline of 1.6, 2.48 today. She is monitored closely from nephrology. IV lasix continues Receiving diuresis for her significant volume overload. Rosario is in place to measure urinary output. With the diuresis she's now much less short of breath. Sitting upright. Able to eat. Without oxygen because she feels better. Status: Acute (2) Pseudoaneurysm of right femoral artery Status: Acute (3) Cellulitis of right thigh Status: Acute
[2016-12-10 23:55] LABS: Glucose,Whole Blood 162 mg/dL (75-99)
[2016-12-11 06:20] LABS: Glucose,Whole Blood 160 mg/dL (75-99)
[2016-12-11 06:38] LABS: CH 29.6; CHCM 32.3; HDW 3.11; HGB 8.4 gm/dL (11.4-16.0); Hypochromasia Slight; MCH 29.8 pg (25.0-35.0); MCHC 32.4 g/dL (31.0-37.0); MCV 92.2 fL (80.0-100.0); Mean Platelet Volume 6.7; RBC 2.83 m/uL (3.80-5.40); RDW 14.3 % (11.5-15.5); WBC 6.8 k/uL (3.8-10.6)
[2016-12-11] MEDS: INSULIN LISPRO SQ SCH ×4 (06:49→21:00)
[2016-12-11] MEDS: FERROUS SULFATE 325 MG TAB PO SCH ×2 (06:49→17:13)
[2016-12-11 07:01] LABS: Calcium 9.3 mg/dL (8.4-10.2); Potassium 3.5 mmol/L (3.5-5.1)
[2016-12-11] MEDS: INSULIN LISPRO (humaLOG) 300 UNIT/3 ML VIAL SQ SCH ×3 (07:10→17:13)
[2016-12-11] MEDS: LEVALBUTEROL NEB 1.25 MG/3 ML AMP INHALATION SCH ×4 (07:48→20:50)
[2016-12-11] MEDS: DOXYCYCLINE 50 MG CAP PO SCH ×2 (09:16→21:25)
[2016-12-11] MEDS: INSULIN GLARGINE 100 UNIT/ML 10 ML VIAL SQ SCH (09:16)
[2016-12-11] MEDS: ASPIRIN 81 MG CHEW PO SCH (09:17)
[2016-12-11] MEDS: RANITIDINE SYRUP 150 MG/10 ML CUP PO SCH (09:17)
[2016-12-11] MEDS: MYCOPHENOLATE MOFETIL 250 MG CAP PO SCH ×2 (09:17→21:25)
[2016-12-11] MEDS: CHOLECALCIFEROL 1,000 UNIT TAB PO SCH (09:18)
[2016-12-11] MEDS: SODIUM BICARBONATE TAB 650 MG TAB PO SCH ×2 (09:18→21:25)
[2016-12-11] MEDS: ATENOLOL 50 MG TAB PO SCH (09:19)
[2016-12-11] MEDS: CLOPIDOGREL 75 MG TAB PO SCH (09:19)
[2016-12-11] MEDS: TAMSULOSIN 0.4 MG CAP.ER.24H PO SCH (09:19)
[2016-12-11] MEDS: hydrALAZINE HCL 50 MG TAB PO SCH ×4 (09:19→21:24)
[2016-12-11] MEDS: amLODIPine 5 MG TAB PO SCH (09:19)
[2016-12-11] MEDS: ATORVASTATIN 80 MG TAB PO SCH (09:19)
[2016-12-11] MEDS: LACTULOSE 20 GM/30 ML CUP PO SCH ×3 (09:19→21:25)
[2016-12-11] MEDS: METOLAZONE 5 MG TAB PO SCH (09:20)
[2016-12-11] MEDS: predniSONE 5 MG TAB PO SCH (09:20)
[2016-12-11] MEDS: TACROLIMUS 1 MG CAP PO SCH ×2 (09:20→21:24)
--- NOTE | 2016-12-11 11:00 | P.PN ---
Subjective Principal diagnosis: Circumflex stent This is a pleasant 66-year-old female who was admitted to the hospital , underwent angioplasty, subsequently developed a pseudoaneurysm, requiring thrombin injection. Patient has a history of a kidney transplant, currently on IV Lasix drip which was decreased to 5 mg today, as well as Zaroxolyn 5 mg daily . Nephrology is following along closely. Creatinine today 2.6. Patient is sitting up in the chair at the time of my examination, overall feeling much better today. Breathing much improved. Blood pressure 173/78. We will increase her Norvasc to 10 mg daily today. Objective - Vital Signs Vital signs: Vital Signs Temp 97.6 F 12/11/16 08:00 Pulse 71 12/11/16 08:00 Resp 18 12/11/16 08:00 BP 173/78 12/11/16 08:00 Pulse Ox 95 12/11/16 08:00 Intake & Output 12/10/16 12/11/16 12/11/16 18:59 06:59 18:59 Intake Total 1380 560 90 Output Total 5209 1656 3 Balance -3829 -1096 87 Weight 98.8 kg 98.9 kg Intake: IV 220 240 0.9 NS at 20 ml/hr 140 160 Furosemide 250 mg In 80 80 Sodium Chloride 0.9% 225 ml @ 10 MG/HR 10 mls/hr IVP .Q24H [facility] Rx#: [id number] Oral 1160 320 90 Output: Urine 5200 1650 Uretheral (Rosario) 2800 Stool 9 6 3 Other: Voiding Method Indwelling Catheter Indwelling Catheter Indwelling Catheter # Voids 0 - Exam PHYSICAL EXAMINATION: HEENT: Head is atraumatic, normocephalic. Pupils equal, round. Neck is supple. There is no elevated jugular venous pressure. HEART EXAMINATION: Heart S1, S2 normal. No murmur or gallop heard. CHEST EXAMINATION: Lungs are clear with diminished air entry to bilateral bases ABDOMEN: Soft, obese, nontender. Bowel sounds are heard. No organomegaly noted. EXTREMITIES: 2+ peripheral pulses with large amount of ecchymosis from the groin down to the knee, soft, no hematoma, no further drainage, mild tenderness. 2+ edema bilaterally NEUROLOGIC patient is awake, alert and oriented -3. . - Labs CBC & Chem 7: 12/11/16 06:08 12/11/16 06:08 Labs: Abnormal Lab Results - Last 24 Hours (Table) 12/10/16 12/10/16 12/10/16 Range/Units 12:03 16:46 20:44 RBC (3.80-5.40) m/uL Hgb (11.4-16.0) gm/dL Hct (34.0-46.0) % Chloride (98-107) mmol/L Carbon Dioxide (22-30) mmol/L BUN (7-17) mg/dL Creatinine (0.52-1.04) mg/dL Glucose (74-99) mg/dL POC Glucose (mg/dL) 281 H 202 H 262 H (75-99) mg/dL 12/10/16 12/11/16 12/11/16 Range/Units 23:52 06:08 06:08 RBC 2.83 L (3.80-5.40) m/uL Hgb 8.4 L (11.4-16.0) gm/dL Hct 26.0 L (34.0-46.0) % Chloride 95 L (98-107) mmol/L Carbon Dioxide 31 H (22-30) mmol/L BUN 50 H (7-17) mg/dL Creatinine 2.67 H (0.52-1.04) mg/dL Glucose 148 H (74-99) mg/dL POC Glucose (mg/dL) 162 H (75-99) mg/dL 12/11/16 Range/Units 06:19 RBC (3.80-5.40) m/uL Hgb (11.4-16.0) gm/dL Hct (34.0-46.0) % Chloride (98-107) mmol/L Carbon Dioxide (22-30) mmol/L BUN (7-17) mg/dL Creatinine (0.52-1.04) mg/dL Glucose (74-99) mg/dL POC Glucose (mg/dL) 160 H (75-99) mg/dL Assessment and Plan (1) Presence of stent in LAD coronary artery Status: Acute (2) Presence of stent in left circumflex coronary artery Status: Acute (3) Femoral artery pseudoaneurysm complicating cardiac catheterization Status: Acute (4) Renal insufficiency Status: Acute (5) Hx of kidney transplant Status: Acute (6) Diabetes Status: Acute (7) HTN (hypertension) Status: Acute (8) Hyperlipemia Status: Acute (9) Anemia Status: Acute Plan: From cardiology's perspective, we will increase Norvasc to 10 mg daily for more optimal blood pressure control. Lasix drip has been decreased to 5 mg by nephrology. We will continue to follow. DNP note has been reviewed, I agree with a documented findings and plan of care. Patient was seen and examined.
--- NOTE | 2016-12-11 11:37 | P.PN ---
Subjective 66-year-old female one of my office patient of known for long time was hospitalized in November 05 of November 10, 2016 for acute myocardial infarction with acute coronary syndrome ended up going for angiogram showed significant stenosis in the LAD and circumflex. Patient kidney function had declined slightly ended up going home after being hydrated and watch her kidney function was seen in the office and see Dr. Ahmadi and patient brought to the hospital on 11/23/2016 for an angioplasty, procedure was done successfully and patient is resting comfortably with no complaint, nephrology consultation was requested and BUN/creatinine to be done an daily basis for the next 2 days. Patient will be admitted for 48 hours. 11/25: Hemoglobin 7.1, BUN 36 and creatinine 1.9. She is status post PTCA and stenting of a complex torturous mid circumflex coronary artery. Nephrology is following. She is continued on Mucomyst and scheduled for IV Ferrlecit 3 days. Patient has developed a right common femoral hematoma and pseudoaneurysm. Dr. Ybarra has evaluated the patient and she is a candidate for thrombin injection of the right femoral pseudoaneurysm. 11/26: Hemoglobin 6.5, BUN 41 and creatinine 2.26. She is continued on Ferrlecit and scheduled for transfusion 1 unit packed RBCs. IV fluids at 50 mL per hour. Patient will complete Mucomyst today. Repeat Ultrasound of the groin today. Bladder scan as needed. 11/27: Yesterday patient underwent repair of perforation of a right profunda femoris artery and evacuation of right groin hematoma with Dr. Ybarra and was subsequently admitted to the ICU. She has a Rosario catheter in place and urine output has been adequate. Rosario will be discontinued this morning. She states she has much decreased pain to the right groin area. She denies any chest pain , shortness of breath. PT is working with her today. Patient is receiving her third dose of Ferrlecit. She has completed her course of Mucomyst. IV fluids at 50 mL per hour. Repeat BUN 40 and creatinine 2.3. Repeat chest x-ray shows borderline cardiomegaly and interstitial prominence which may be chronic. Correlate to exclude mild CHF. 11/28: Patient states that the groin site remains better in regards to pain. Site is warm to the touch. She did have a temperature of 101.2 this morning blood cultures, urinalysis urine culture and chest x-ray have been ordered. Patient does not have a cough or sputum production. She is complaining of feeling achy all over. She has minimal urine output Rosario was removed last night. Morning blood sugar was 95 and patient is on insulin pump. BUN 40 with creatinine 2.7 and hemoglobin 8.4. Infectious disease consult added. Patient is complaining of sore throat for which Cepacol lozenges added. 11/29: Patient is more comfortable able to ambulate out of bed with help her hemoglobin dropped down slightly but she is feeling better she was transfer out of the intensive care unit yesterday. No need for blood transfusion yet but hemoglobin is below 8 we'll wait till tomorrow repeat another CBC if it remain in the mid 7 transfusion be done. Expectation for discharge hopefully over the next 48 hours creatinine has plateau over the last 2 days with no significant declining kidney function at this point 11/30: Ultrasound venous Doppler duplex of the right lower extremity is negative for DVT. Patient complains of nausea this morning for which Zofran has been added. She was given Lasix 60 mg IV 1. She states her breathing status is okay. Repeat BUN 40 and creatinine 2.8, potassium 4.1. Hemoglobin 7.8. She is currently on Ceftaroline and followed by Dr. Rendon. 12/01: BUN today is [address] Rendon as recommended most likely doxycycline at the time of discharge.she is status post Lasix 1 dose today. She is on fluid restriction.she hasn't some problem with urinary retention for which she was straight cathed.nephrology has started Flomax. 12/02: BUN 42 and creatinine 2.79. Hemoglobin 7.4. Fluid balance is -950. Weight is same from yesterday. She states she feels puffy. No lasix today. 12/03: Nephrology has continue patient on IV Lasix. Norvasc discontinued as patient's blood pressure is on the low side. She is continued on sodium bicarb. Kidney function continues to improve with BUN 39 creatinine 2.62. Hemoglobin is stable at 7.7. Blood sugars running 110-163. 12/04: Bun 39 and creatinine 2.6. Good urine output. She is continued on Lasix 40 mg IV twice daily. Weight is slightly up today. Aranesp was started. 12/05: Patient is sitting up in chair at her was at the bedside, the patient continues to have significant anasarca all over her body with significant bruising to the right upper extremity yet her creatinine is about the same 2.6. 2: Patient is complaining of significant shortness of breath, as well as significant swelling in both lower extremities and upper extremities as a matter fact she could not even walk a few steps without getting extremely short of breath, she was given Lasix 60 minute gram IV push 1 this will be repeated again in 12 hours. 12/07: Repeat hemoglobin 7.8, BUN [address] Ybarra recommending sutures out in one week and follow-up in the office on December 14. Patient is having worsening fluid overload, shortness of breath and lethargy and started on lasix drip. IV antibiotics changed to oral. Protein supplement increased to three times daily. She denies any chest pain. 12/08: BUN 44 and creatinine 2.51. Hemoglobin 7.4 and one unit of blood ordered. Blood sugars this morning were low at 61 and repeat 67 and 93. She has not been eating much. Lantus decreased to 18 units. Weight today is 102.1 kg down only 0.2 kg from yesterday. Urine out is improved. She remains on Lasix drip. She did not sleep well last night and was uncomfortable in bed. Patient states she feels better today. 12/09: BUN 45 and creatinine 2.52. Hemoglobin 9.2. The blood glucose this morning was 64 and repeat 75. And Lantus will be decreased again down to 16 units with scheduled Humalog 3 units with each meal and scale. Weight is down 1 kg from yesterday. Lasix drip changed over to Lasix 40 mg IV every 8 hours. Repeat chest x-ray ordered for the morning. Patient has SALVATORE hose in place are cutting into legs and Clarence wraps will be requested. 12/10: Patient was continued on Lasix drip but increased to 10 mg/h by nephrology. Repeat chest x-ray shows overall stable findings with persistent small to moderate-sized bilateral pleural effusions and mild to moderate central vascular congestion all redemonstrated. No significant change from prior. Capillary blood glucose running between 161 and 189. BUN 44 and creatinine 2.48. Breathing is improving. She does have shortness of breath worsening with exertion. She was able to get up and take a shower this morning 12/11: In creatinine 2.67, hemoglobin 8.4. Blood glucose running between 160 and 262. History Lantus was increased due to elevated blood sugars in the afternoon and patient has been unable to tolerate more food. Weight is down another kilogram. She is continued on Lasix drip at decreased rate of 5 mg per hour and Zaroxolyn [address] Hussein is planning to switch her over to IV push Lasix later today. She is currently off oxygen and states she is feeling much improved today. We will plan to have Rosario catheter removed in the morning and do voiding trial with anticipated discharge on Wednesday. Objective - Vital Signs Vital signs: Vital Signs Temp 97.5 F L 12/11/16 04:00 Pulse 63 12/11/16 07:59 Resp 17 12/11/16 04:00 BP 142/65 12/11/16 04:00 Pulse Ox 94 L 12/11/16 04:00 Intake & Output 12/10/16 12/11/16 12/11/16 18:59 06:59 18:59 Intake Total 1380 560 90 Output Total 5209 1656 Balance -3829 -1096 90 Weight 98.8 kg 98.9 kg Intake: IV 220 240 0.9 NS at 20 ml/hr 140 160 Furosemide 250 mg In 80 80 Sodium Chloride 0.9% 225 ml @ 10 MG/HR 10 mls/hr IVP .Q24H [facility] Rx#: [id number] Oral 1160 320 90 Output: Urine 5200 1650 Uretheral (Rosario) 2800 Stool 9 6 Other: Voiding Method Indwelling Catheter Indwelling Catheter # Voids 0 - Exam General appearance: no average body habitus, cooperative, no disheveled, no mild distress, no morbidly obese, no acute distress, no obese, no severe distress, no thin - EENT Eyes: no abnormal pupil, no anicteric sclerae, no disc margins sharp, no edentulous, no EOMI, no PERRLA, no fundus normal, no photophobia, no dentition normal, no poor dentition, no ptosis, no scleral icterus, normal appearance ENT: no hard of hearing, no hearing grossly normal, no NA/AT, normal oropharynx , no other, no pharyngeal erythema, no thrush, no tonsillar exudates, no tonsillar swelling Ears: bilateral: normal - Neck Neck: no lymphadenopathy, normal ROM, no other, no rigidity, no stridor, no thyromegaly Carotids: bilateral: upstroke normal Thyroid: bilateral: normal size - Respiratory Respiratory: bilateral: CTA, diminished - Cardiovascular Rhythm: regular Heart sounds: normal: S1, S2 Abnormal Heart Sounds: systolic murmur - Gastrointestinal General gastrointestinal: no absent bowel sounds, decreased bowel sounds, no distended, no hepatomegaly, no hyperactive bowel sounds, normal bowel sounds, no organomegaly, no rigid, no scaphoid, soft, no splenomegaly, no tenderness, no umbilical hernia, no ventral hernia - Integumentary Integumentary: Large mass in the right groin, less tender, no cyanotic, no decreased turgor, no flushed, no jaundiced, normal, no normal turgor, pale, rash , no ulcer - Neurologic Neurologic: CNII-XII intact - Musculoskeletal Musculoskeletal: gait normal, generalized weakness, strength equal bilaterally, no right sided weakness, no left sided weakness - Psychiatric Psychiatric: A&O x's 3, appropriate affect, no intact judgment & insight - Labs CBC & Chem 7: 12/11/16 06:08 12/11/16 06:08 Labs: Abnormal Lab Results - Last 24 Hours (Table) 12/10/16 12/10/16 12/10/16 Range/Units 12:03 16:46 20:44 RBC (3.80-5.40) m/uL Hgb (11.4-16.0) gm/dL Hct (34.0-46.0) % Chloride (98-107) mmol/L Carbon Dioxide (22-30) mmol/L BUN (7-17) mg/dL Creatinine (0.52-1.04) mg/dL Glucose (74-99) mg/dL POC Glucose (mg/dL) 281 H 202 H 262 H (75-99) mg/dL 12/10/16 12/11/16 12/11/16 Range/Units 23:52 06:08 06:08 RBC 2.83 L (3.80-5.40) m/uL Hgb 8.4 L (11.4-16.0) gm/dL Hct 26.0 L (34.0-46.0) % Chloride 95 L (98-107) mmol/L Carbon Dioxide 31 H (22-30) mmol/L BUN 50 H (7-17) mg/dL Creatinine 2.67 H (0.52-1.04) mg/dL Glucose 148 H (74-99) mg/dL POC Glucose (mg/dL) 162 H (75-99) mg/dL 12/11/16 Range/Units 06:19 RBC (3.80-5.40) m/uL Hgb (11.4-16.0) gm/dL Hct (34.0-46.0) % Chloride (98-107) mmol/L Carbon Dioxide (22-30) mmol/L BUN (7-17) mg/dL Creatinine (0.52-1.04) mg/dL Glucose (74-99) mg/dL POC Glucose (mg/dL) 160 H (75-99) mg/dL Assessment and Plan Plan: 1 CAD: With multiple coronary artery disease patent lesion in the RCA with stent still open, had 2 more lesion 1 in the LAD and one in the circumflex which Dr. Ahmadi has done an angioplasty and stent placement successfully. 2. Right common femoral hematoma and pseudoaneurysm with early sepsis and cellulitis with possible wound infection developing. Dr. Ybarra on consult. Plan for thrombin injection of the right femoral pseudoaneurysm. Status post repair of pseudoaneurysm right groin. Blood cultures, urine culture, urinalysis , chest x-ray and ID consult added. Ceftaroline changed to oral doxycycline. 3. post NC with acute coronary syndrome: Patient has done well since her last admission. 4. Acute kidney injury on chronic kidney disease stage III post kidney transplant, patient is still seen nephrology regular basis which will be followed daily with repeat BUN/creatinine. Sodium bicarb, Lasix gtt, Zaroxolyn. Protein supplement increased to 3 times daily. 5. Acute diastolic heart failure. Patient currently on Lasix gtt. 6. diabetes mellitus type 2: Patient is on insulin pump at home. Decrease lantus and continue Accu-Chek with sliding scales coverage and scheduled Humalog added with meals. 7. hyperlipidemia: On Lipitor 20 mg daily. 8. GERD: Patient is on Zantac or H2 jai and doing well. 9. post renal transplant: Patient to continue CellCept 750 mg orally twice a day along with Prograf 2 mg twice a day and prednisone 5 mg daily. 10. hypertension: Continue atenolol 100 mg daily. Norvasc was discontinued. 11. Urinary retention for which patient required Rosario cath. Flomax added. 12. Acute blood loss anemia status post transfusion and anemia of chronic kidney disease. On . CODE STATUS: Full code. Discharge plan: Home with home care on Wednesday Impression and plan of care have been directed as dictated by the signing physician. Lainey Cameron nurse practitioner acting as scribe for signing physician. Time with Patient: Greater than 30
[2016-12-11 12:13] LABS: Glucose,Whole Blood 231 mg/dL (75-99)
--- NOTE | 2016-12-11 16:51 | P.PN ---
Subjective Principal diagnosis: Coronary artery disease 66-year-old female who has a known history of coronary artery disease was hospitalized in early November 2016 with an acute myocardial infarction. Evidence of Stenosis of Her Left Anterior Descending Artery in Her Circumflex. With a History of Renal Transplantation It Was Noted That Her Renal Function Had Worsened a Bit. Because She Was Stable Was Plan for Readmission for Her Angioplasty. She then Was Readmitted and Angioplasty Occurred on 11/23/2016. She Is Doing Modestly Well However Developed Difficulty with Pain to Her Right Groin. There Is Evidence of a Pseudoaneurysm. She's Been Taking to the Operating Room and the aneurysm has Been Repaired. She then started Having Difficulties with Increasing Tenderness Erythema and Some Scant Serous Drainage. Some Scant Bloody Drainage Inferior to the Incision from Her Prior Dressing. She then Developed a Temperature 101.2 several days ago which fortunately has resolved Feeling much better today. Is much less short of breath with a Lasix drip. Has had excellent urinary output. Feels much better overall and is not currently wearing oxygen. Objective - Vital Signs Vital signs: Vital Signs Temp 97.6 F 12/11/16 08:00 Pulse 66 12/11/16 16:15 Resp 18 12/11/16 11:55 BP 156/68 12/11/16 11:55 Pulse Ox 94 L 12/11/16 11:55 Intake & Output 12/10/16 12/11/16 12/11/16 18:59 06:59 18:59 Intake Total 1380 560 150 Output Total 5209 1656 1706 Balance -9545 -7978 -0494 Weight 98.8 kg 98.9 kg Intake: IV 220 240 0.9 NS at 20 ml/hr 140 160 Furosemide 250 mg In 80 80 Sodium Chloride 0.9% 225 ml @ 10 MG/HR 10 mls/hr IVP .Q24H [facility] Rx#: [id number] Intake, IV Titration 60 Amount Furosemide 250 mg In 60 Sodium Chloride 0.9% 225 ml @ 10 MG/HR 10 mls/hr IVP .Q24H [facility] Rx#: [id number] Oral 1160 320 90 Output: Urine 5200 1650 1700 Uretheral (Rosario) 2800 Stool 9 6 6 Other: Voiding Method Indwelling Catheter Indwelling Catheter Indwelling Catheter # Voids 0 - Exam pleasant 66 -year-old woman who issitting up in the chair. The exertion made her feel somewhat HEENT: Anicteric conjunctiva are pink and moist nasal mucosa grossly intact without significant lesions, there is no thrush. Neck: The neck is supple without significant lymphadenopathy or thyromegaly. Lungs: Symmetrical air entry. Bibasilar crackles are heard. No kurt bronchial sounds. Heart: Irregular with an audible S1 and S2 soft S4 no murmur click or rub PMI was nondisplaced Abdomen: obese,Positive bowel sounds soft and nontender without palpable masses or organomegaly. There was no guarding or rebound. Extremities: The upper extremities have excellent pulses they are symmetric, no significant petechiae or telangiectasia. No splinter hemorrhages were noted. Lower extremities evidence of generalized edema. Left lower extremities hasbeen abnormalities. Neurologic she was as the recent surgical intervention to the right groin. Surgical incision is intact. There is a scant amount of drainage on the dressing. Nothing is expressible. She is a small tape injury was some bleeding it's distal on the thigh. There is some mild surrounding erythema. It is with very little tenderness. No odor is noted. There is no ascending erythema that is noted there is minimal area of discoloration to the staple line is somewhat hyperemic edema is improved no significant tissue loss is noticed. Neuro: Awake alert oriented to person place and time. There are no acute new gross focal sensory motor deficits. - Labs CBC & Chem 7: 12/11/16 06:08 12/11/16 06:08 Labs: Abnormal Lab Results - Last 24 Hours (Table) 12/10/16 12/10/16 12/10/16 Range/Units 16:46 20:44 23:52 RBC (3.80-5.40) m/uL Hgb (11.4-16.0) gm/dL Hct (34.0-46.0) % Chloride (98-107) mmol/L Carbon Dioxide (22-30) mmol/L BUN (7-17) mg/dL Creatinine (0.52-1.04) mg/dL Glucose (74-99) mg/dL POC Glucose (mg/dL) 202 H 262 H 162 H (75-99) mg/dL 12/11/16 12/11/16 12/11/16 Range/Units 06:08 06:08 06:19 RBC 2.83 L (3.80-5.40) m/uL Hgb 8.4 L (11.4-16.0) gm/dL Hct 26.0 L (34.0-46.0) % Chloride 95 L (98-107) mmol/L Carbon Dioxide 31 H (22-30) mmol/L BUN 50 H (7-17) mg/dL Creatinine 2.67 H (0.52-1.04) mg/dL Glucose 148 H (74-99) mg/dL POC Glucose (mg/dL) 160 H (75-99) mg/dL 12/11/16 Range/Units 12:09 RBC (3.80-5.40) m/uL Hgb (11.4-16.0) gm/dL Hct (34.0-46.0) % Chloride (98-107) mmol/L Carbon Dioxide (22-30) mmol/L BUN (7-17) mg/dL Creatinine (0.52-1.04) mg/dL Glucose (74-99) mg/dL POC Glucose (mg/dL) 231 H (75-99) mg/dL Laboratory Results WBC 6.8 k/uL (3.8-10.6) 12/11/16 06:08 RBC 2.83 m/uL (3.80-5.40) L 12/11/16 06:08 Hgb 8.4 gm/dL (11.4-16.0) L 12/11/16 06:08 Hct 26.0 % (34.0-46.0) L 12/11/16 06:08 MCV 92.2 fL (80.0-100.0) 12/11/16 06:08 MCH 29.8 pg (25.0-35.0) 12/11/16 06:08 MCHC 32.4 g/dL (31.0-37.0) 12/11/16 06:08 RDW 14.3 % (11.5-15.5) 12/11/16 06:08 Plt Count 308 k/uL (150-450) 12/11/16 06:08 Neutrophils % 72 % 12/07/16 05:20 Lymphocytes % 14 % 12/07/16 05:20 Monocytes % 8 % 12/07/16 05:20 Eosinophils % 3 % 12/07/16 05:20 Basophils % 0 % 12/07/16 05:20 Neutrophils # 5.8 k/uL (1.3-7.7) 12/07/16 05:20 Lymphocytes # 1.1 k/uL (1.0-4.8) 12/07/16 05:20 Monocytes # 0.6 k/uL (0-1.0) 12/07/16 05:20 Eosinophils # 0.3 k/uL (0-0.7) 12/07/16 05:20 Basophils # 0.0 k/uL (0-0.2) 12/07/16 05:20 Hypochromasia Slight 12/11/16 06:08 Poikilocytosis Slight 12/09/16 06:16 PT 11.1 sec (9.0-12.0) 11/27/16 04:46 INR 1.1 (<1.1) 11/27/16 04:46 Sodium 137 mmol/L (137-145) 12/11/16 06:08 Potassium 3.5 mmol/L (3.5-5.1) 12/11/16 06:08 Chloride 95 mmol/L (98-107) L 12/11/16 06:08 Carbon Dioxide 31 mmol/L (22-30) H 12/11/16 06:08 Anion Gap 11 mmol/L 12/11/16 06:08 BUN 50 mg/dL (7-17) H 12/11/16 06:08 Creatinine 2.67 mg/dL (0.52-1.04) H 12/11/16 06:08 Est GFR (MDRD) Af Amer 22 (>60 ml/min/1.73 sqM) 12/11/16 06:08 Est GFR (MDRD) Non-Af 18 (>60 ml/min/1.73 sqM) 12/11/16 06:08 Glucose 148 mg/dL (74-99) H 12/11/16 06:08 POC Glucose (mg/dL) 231 mg/dL (75-99) H 12/11/16 12:09 POC Glu Thermoplastic Technician ID Nikita Mcelroy 12/11/16 12:[address] Glu mg/dL 154 mg/dL 11/27/16 04:46 Hemoglobin A1c 7.0 % (4.2-6.1) H 11/27/16 04:46 Osmolality 275 mosm/kg (280-301) L 11/29/16 06:12 Calcium 9.3 mg/dL (8.4-10.2) 12/11/16 06:08 Phosphorus 4.8 mg/dL (2.5-4.5) H 11/27/16 04:46 Magnesium 1.8 mg/dL (1.6-2.3) 12/03/16 06:24 Iron 16 ug/dL (37-170) L 12/07/16 05:20 TIBC 199 ug/dL (265-497) L 12/07/16 05:20 % Saturation 8.0 % (20-50) L 12/07/16 05:20 Ferritin 168 ng/mL (11-264) 11/24/16 07:48 Total Bilirubin 0.6 mg/dL (0.2-1.3) 12/07/16 05:20 AST 12 U/L (14-36) L 12/07/16 05:20 ALT 28 U/L (9-52) 12/07/16 05:20 Alkaline Phosphatase 62 U/L (38-126) 12/07/16 05:20 Total Protein 5.1 g/dL (6.3-8.2) L 12/07/16 05:20 Albumin 2.7 g/dL (3.5-5.0) L 12/07/16 05:20 Urine Color Yellow 11/28/16 09:55 Urine Appearance Clear (Clear) 11/28/16 09:55 Urine pH 5.5 (5.0-8.0) 11/28/16 09:55 Ur Specific [place] 1.010 (1.001-1.035) 11/28/16 09:55 Urine Protein 2+ (Negative) H 11/28/16 09:55 Urine Glucose (UA) Negative (Negative) 11/28/16 09:55 Urine Ketones Negative (Negative) 11/28/16 09:55 Urine Blood Negative (Negative) 11/28/16 09:55 Urine Nitrate Negative (Negative) 11/28/16 09:55 Urine Bilirubin Negative (Negative) 11/28/16 09:55 Urine Urobilinogen <2.0 mg/dL (<2.0) 11/28/16 09:55 Ur Leukocyte Esterase Negative (Negative) 11/28/16 09:55 Urine WBC 1 /hpf (0-5) 11/28/16 09:55 Urine Mucus Rare /hpf (None) H 11/28/16 09:55 Urine Osmolality 255 mosm/kg (50-1400) 11/29/16 11:26 Ur Random Sodium <5 mmol/L (30-90) L 11/29/16 11:26 Ur Random Potassium 23.4 mmol/L 11/29/16 11:26 Tacrolimus 7.6 ng/mL (5.0-20.0) 12/08/16 12:04 Blood Type A Positive 12/08/16 12:04 Blood Type Confirm A Positive 11/24/16 20:03 Blood Type Recheck No 12/08/16 12:04 Antibody Screen NEGATIVE 12/08/16 12:04 Crossmatch See Detail 12/08/16 12:04 Spec Expiration Date 12/11/2016230312/08/16 12:04 Microbiology 11/28/16 10:03 Blood Blood Culture - Final No Growth after 144 hours 11/28/16 08:53 Blood Blood Culture - Final No Growth after 144 hours 11/28/16 09:55 Urine,Catheterized Urine Culture - Final Assessment and Plan (1) Fever Narrative/Plan: 66-year-old male presents to Hospital after her myocardial infarction earlier this year. She presented for her cardiac intervention and stenting was performed to the LAD and circumflex. She been doing well but was having some difficulty with her right groin. In that she developed a temperature 101.2. She has been seen by vascular surgery and repair of her pseudoaneurysms occurred. As evidence of some fever 101.2 erythema and tenderness to the site. With this is concerned infection at that area. She has a known history of vancomycin ALLERGY. With this Ceftaroline 400 mg IV piggyback every 12 hours as utilized. She give coverage for staph including MRSA as well as some routine gram-negative organisms such as E. coli that are in the groin. There is no drainage at this time for culture. Blood cultures are in process. And are negative so far She is symptomatically stable. With her ALLERGIES since she is improving as far as a cellulitis to the right leg Ceftaroline is discontinued and doxycycline 100 mg twice per day can be utilized to complete 7 days of therapy. She is feeling better except for shortness of breath which has been improving. Does have a history of renal transplantation. Her creatinine is up from her baseline of 1.6, 2.67 today. She is monitored closely from nephrology. IV lasix continues Receiving diuresis for her significant volume overload. Rosario is in place to measure urinary output. With the diuresis she's now much less short of breath. Sitting upright. Able to eat. Without oxygen because she feels better. Has been up walking in the halls and tolerating that well without significant desaturation. Status: Acute (2) Pseudoaneurysm of right femoral artery Status: Acute (3) Cellulitis of right thigh Status: Acute
[2016-12-11 17:11] LABS: Glucose,Whole Blood 168 mg/dL (75-99)
[2016-12-11] MEDS: FUROSEMIDE 250 MG in SODIUM CHLORIDE 0.9% 225 ML IVP SCH (17:12)
[2016-12-11] MEDS: ONDANSETRON 4 MG/2 ML VIAL IVP PRN (18:46)
[2016-12-11 20:47] LABS: Glucose,Whole Blood 114 mg/dL (75-99)
[2016-12-12] MEDS: ONDANSETRON 4 MG/2 ML VIAL IVP PRN (01:12)
[2016-12-12] MEDS: ALPRAZolam 0.5 MG TAB PO PRN (01:12)
[2016-12-12 06:03] LABS: Glucose,Whole Blood 207 mg/dL (75-99)
[2016-12-12 06:29] LABS: CH 29.4; CHCM 31.8; HDW 3.08; Hypochromasia Slight; MCHC 32.2 g/dL (31.0-37.0); MCV 93.2 fL (80.0-100.0); Mean Platelet Volume 6.6; RDW 14.3 % (11.5-15.5); WBC 7.5 k/uL (3.8-10.6)
[2016-12-12 06:42] LABS: Calcium 9.5 mg/dL (8.4-10.2)
[2016-12-12] MEDS: INSULIN LISPRO SQ SCH ×4 (06:56→20:46)
[2016-12-12] MEDS: FERROUS SULFATE 325 MG TAB PO SCH ×2 (07:04→18:11)
[2016-12-12] MEDS: INSULIN LISPRO (humaLOG) 300 UNIT/3 ML VIAL SQ SCH ×3 (07:04→18:11)
[2016-12-12 07:09] LABS: Potassium 3.4 mmol/L (3.5-5.1)
[2016-12-12] MEDS: LEVALBUTEROL NEB 1.25 MG/3 ML AMP INHALATION SCH ×4 (08:03→20:47)
--- NOTE | 2016-12-12 08:24 | P.PN ---
Subjective Bharati is feeling much better. No cp and improved SOB. On ambient air. Objective - Vital Signs Vital signs: Vital Signs Temp 98.3 F 12/12/16 04:00 Pulse 68 12/12/16 08:15 Resp 16 12/12/16 04:00 BP 128/60 12/12/16 04:00 Pulse Ox 93 L 12/12/16 04:00 Intake & Output 12/11/16 12/12/16 12/12/16 18:59 06:59 18:59 Intake Total 150 200 Output Total 1712 1300 Balance -1562 -1100 Weight 97.2 kg Intake: Intake, IV Titration 60 Amount Furosemide 250 mg In 60 Sodium Chloride 0.9% 225 ml @ 10 MG/HR 10 mls/hr IVP .Q24H [facility] Rx#: [id number] Oral 90 200 Output: Urine 1700 1300 Stool 12 Other: Voiding Method Indwelling Catheter Indwelling Catheter # Bowel Movements 1 - Constitutional General appearance: Present: no acute distress - Respiratory Respiratory: bilateral: diminished - Cardiovascular Rhythm: regular Heart sounds: normal: S1, S2 - Peripheral edema leg Peripheral Edema: bilateral: 1+ - Gastrointestinal General gastrointestinal: Present: soft - Labs CBC & Chem 7: 12/12/16 06:06 12/12/16 06:06 Labs: Abnormal Lab Results - Last 24 Hours (Table) 12/11/16 12/11/16 12/11/16 Range/Units 12:09 17:05 20:46 RBC (3.80-5.40) m/uL Hgb (11.4-16.0) gm/dL Hct (34.0-46.0) % Sodium (137-145) mmol/L Potassium (3.5-5.1) mmol/L Chloride (98-107) mmol/L BUN (7-17) mg/dL Creatinine (0.52-1.04) mg/dL Glucose (74-99) mg/dL POC Glucose (mg/dL) 231 H 168 H 114 H (75-99) mg/dL 12/12/16 12/12/16 12/12/16 Range/Units 06:02 06:06 06:06 RBC 3.00 L (3.80-5.40) m/uL Hgb 9.0 L (11.4-16.0) gm/dL Hct 28.0 L (34.0-46.0) % Sodium 136 L (137-145) mmol/L Potassium 3.4 L (3.5-5.1) mmol/L Chloride 93 L (98-107) mmol/L BUN 50 H (7-17) mg/dL Creatinine 2.69 H (0.52-1.04) mg/dL Glucose 160 H (74-99) mg/dL POC Glucose (mg/dL) 207 H (75-99) mg/dL Assessment and Plan Plan: Assessment/Plan #1. Nonoliguric NOELLE due to cardiorenal syndrome/contrast nephropathy. -renal function stable. -change lasix gtt to lasix 40mg IVP bid. -continue metolazone. -d/c cordon and check PVR. (h/o urinary retention). #2. Chronic kidney disease stage III with baseline creatinine near 1.6. #3. 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 #4. Diabetes mellitus. #5. Coronary artery disease. #6. Anemia status post packed red blood cell transfusion.
[2016-12-12] MEDS: RANITIDINE SYRUP 150 MG/10 ML CUP PO SCH (09:20)
[2016-12-12] MEDS: FUROSEMIDE 10 MG/ML 4 ML VIAL IV SCH ×2 (09:20→20:46)
[2016-12-12] MEDS: LACTULOSE 20 GM/30 ML CUP PO SCH ×3 (09:20→20:46)
[2016-12-12] MEDS: DOXYCYCLINE 50 MG CAP PO SCH ×2 (09:21→20:45)
[2016-12-12] MEDS: MYCOPHENOLATE MOFETIL 250 MG CAP PO SCH ×2 (09:21→20:45)
[2016-12-12] MEDS: hydrALAZINE HCL 50 MG TAB PO SCH ×4 (09:22→20:46)
[2016-12-12] MEDS: CHOLECALCIFEROL 1,000 UNIT TAB PO SCH (09:22)
[2016-12-12] MEDS: SODIUM BICARBONATE TAB 650 MG TAB PO SCH ×2 (09:22→20:46)
[2016-12-12] MEDS: CLOPIDOGREL 75 MG TAB PO SCH (09:23)
[2016-12-12] MEDS: METOLAZONE 5 MG TAB PO SCH (09:24)
[2016-12-12] MEDS: ATORVASTATIN 80 MG TAB PO SCH (09:24)
[2016-12-12] MEDS: amLODIPine 5 MG TAB PO SCH (09:24)
[2016-12-12] MEDS: ATENOLOL 50 MG TAB PO SCH (09:24)
[2016-12-12] MEDS: predniSONE 5 MG TAB PO SCH (09:24)
[2016-12-12] MEDS: TACROLIMUS 1 MG CAP PO SCH ×2 (09:25→20:46)
[2016-12-12] MEDS: INSULIN GLARGINE 100 UNIT/ML 10 ML VIAL SQ SCH (09:25)
[2016-12-12] MEDS: TAMSULOSIN 0.4 MG CAP.ER.24H PO SCH (09:25)
[2016-12-12] MEDS: ASPIRIN 81 MG CHEW PO SCH (09:25)
--- NOTE | 2016-12-12 10:11 | P.PN ---
Subjective 66-year-old female one of my office patient of known for long time was hospitalized in November 05 of November 10, 2016 for acute myocardial infarction with acute coronary syndrome ended up going for angiogram showed significant stenosis in the LAD and circumflex. Patient kidney function had declined slightly ended up going home after being hydrated and watch her kidney function was seen in the office and see Dr. Ahmadi and patient brought to the hospital on 11/23/2016 for an angioplasty, procedure was done successfully and patient is resting comfortably with no complaint, nephrology consultation was requested and BUN/creatinine to be done an daily basis for the next 2 days. Patient will be admitted for 48 hours. 11/25: Hemoglobin 7.1, BUN 36 and creatinine 1.9. She is status post PTCA and stenting of a complex torturous mid circumflex coronary artery. Nephrology is following. She is continued on Mucomyst and scheduled for IV Ferrlecit 3 days. Patient has developed a right common femoral hematoma and pseudoaneurysm. Dr. Ybarra has evaluated the patient and she is a candidate for thrombin injection of the right femoral pseudoaneurysm. 11/26: Hemoglobin 6.5, BUN 41 and creatinine 2.26. She is continued on Ferrlecit and scheduled for transfusion 1 unit packed RBCs. IV fluids at 50 mL per hour. Patient will complete Mucomyst today. Repeat Ultrasound of the groin today. Bladder scan as needed. 11/27: Yesterday patient underwent repair of perforation of a right profunda femoris artery and evacuation of right groin hematoma with Dr. Ybarra and was subsequently admitted to the ICU. She has a Rosario catheter in place and urine output has been adequate. Rosario will be discontinued this morning. She states she has much decreased pain to the right groin area. She denies any chest pain , shortness of breath. PT is working with her today. Patient is receiving her third dose of Ferrlecit. She has completed her course of Mucomyst. IV fluids at 50 mL per hour. Repeat BUN 40 and creatinine 2.3. Repeat chest x-ray shows borderline cardiomegaly and interstitial prominence which may be chronic. Correlate to exclude mild CHF. 11/28: Patient states that the groin site remains better in regards to pain. Site is warm to the touch. She did have a temperature of 101.2 this morning blood cultures, urinalysis urine culture and chest x-ray have been ordered. Patient does not have a cough or sputum production. She is complaining of feeling achy all over. She has minimal urine output Rosario was removed last night. Morning blood sugar was 95 and patient is on insulin pump. BUN 40 with creatinine 2.7 and hemoglobin 8.4. Infectious disease consult added. Patient is complaining of sore throat for which Cepacol lozenges added. 11/29: Patient is more comfortable able to ambulate out of bed with help her hemoglobin dropped down slightly but she is feeling better she was transfer out of the intensive care unit yesterday. No need for blood transfusion yet but hemoglobin is below 8 we'll wait till tomorrow repeat another CBC if it remain in the mid 7 transfusion be done. Expectation for discharge hopefully over the next 48 hours creatinine has plateau over the last 2 days with no significant declining kidney function at this point 11/30: Ultrasound venous Doppler duplex of the right lower extremity is negative for DVT. Patient complains of nausea this morning for which Zofran has been added. She was given Lasix 60 mg IV 1. She states her breathing status is okay. Repeat BUN 40 and creatinine 2.8, potassium 4.1. Hemoglobin 7.8. She is currently on Ceftaroline and followed by Dr. Rendon. 12/01: BUN today is [address] Rendon as recommended most likely doxycycline at the time of discharge.she is status post Lasix 1 dose today. She is on fluid restriction.she hasn't some problem with urinary retention for which she was straight cathed.nephrology has started Flomax. 12/02: BUN 42 and creatinine 2.79. Hemoglobin 7.4. Fluid balance is -950. Weight is same from yesterday. She states she feels puffy. No lasix today. 12/03: Nephrology has continue patient on IV Lasix. Norvasc discontinued as patient's blood pressure is on the low side. She is continued on sodium bicarb. Kidney function continues to improve with BUN 39 creatinine 2.62. Hemoglobin is stable at 7.7. Blood sugars running 110-163. 12/04: Bun 39 and creatinine 2.6. Good urine output. She is continued on Lasix 40 mg IV twice daily. Weight is slightly up today. Aranesp was started. 12/05: Patient is sitting up in chair at her was at the bedside, the patient continues to have significant anasarca all over her body with significant bruising to the right upper extremity yet her creatinine is about the same 2.6. 2: Patient is complaining of significant shortness of breath, as well as significant swelling in both lower extremities and upper extremities as a matter fact she could not even walk a few steps without getting extremely short of breath, she was given Lasix 60 minute gram IV push 1 this will be repeated again in 12 hours. 12/07: Repeat hemoglobin 7.8, BUN [address] Ybarra recommending sutures out in one week and follow-up in the office on December 14. Patient is having worsening fluid overload, shortness of breath and lethargy and started on lasix drip. IV antibiotics changed to oral. Protein supplement increased to three times daily. She denies any chest pain. 12/08: BUN 44 and creatinine 2.51. Hemoglobin 7.4 and one unit of blood ordered. Blood sugars this morning were low at 61 and repeat 67 and 93. She has not been eating much. Lantus decreased to 18 units. Weight today is 102.1 kg down only 0.2 kg from yesterday. Urine out is improved. She remains on Lasix drip. She did not sleep well last night and was uncomfortable in bed. Patient states she feels better today. 12/09: BUN 45 and creatinine 2.52. Hemoglobin 9.2. The blood glucose this morning was 64 and repeat 75. And Lantus will be decreased again down to 16 units with scheduled Humalog 3 units with each meal and scale. Weight is down 1 kg from yesterday. Lasix drip changed over to Lasix 40 mg IV every 8 hours. Repeat chest x-ray ordered for the morning. Patient has SALVATORE hose in place are cutting into legs and Clarence wraps will be requested. 12/10: Patient was continued on Lasix drip but increased to 10 mg/h by nephrology. Repeat chest x-ray shows overall stable findings with persistent small to moderate-sized bilateral pleural effusions and mild to moderate central vascular congestion all redemonstrated. No significant change from prior. Capillary blood glucose running between 161 and 189. BUN 44 and creatinine 2.48. Breathing is improving. She does have shortness of breath worsening with exertion. She was able to get up and take a shower this morning 12/11: In creatinine 2.67, hemoglobin 8.4. Blood glucose running between 160 and 262. History Lantus was increased due to elevated blood sugars in the afternoon and patient has been unable to tolerate more food. Weight is down another kilogram. She is continued on Lasix drip at decreased rate of 5 mg per hour and Zaroxolyn [address] Hussein is planning to switch her over to IV push Lasix later today. She is currently off oxygen and states she is feeling much improved today. We will plan to have Rosario catheter removed in the morning and do voiding trial with anticipated discharge on Wednesday. 12/12: Open 9.0, BUN 50 and creatinine 2.69. Capillary blood glucose running between 114 and 207. She is currently on IV Lasix 40 mg every 12 hours and Zaroxolyn 5 mg daily. Weight is down 1.7 kg from yesterday. Rosario catheter is to be removed today and monitor for urinary retention. Nephrology has cleared her for discharge today. Plan will be to increase activity monitor for urinary retention continue IV Lasix and discharged home tomorrow. Home care is in place. Objective - Vital Signs Vital signs: Vital Signs Temp 98.3 F 12/12/16 04:00 Pulse 68 12/12/16 08:15 Resp 16 12/12/16 04:00 BP 128/60 12/12/16 04:00 Pulse Ox 93 L 12/12/16 04:00 Intake & Output 12/11/16 12/12/16 12/12/16 18:59 06:59 18:59 Intake Total 150 200 Output Total 1712 1300 Balance -1562 -1100 Weight 97.2 kg Intake: Intake, IV Titration 60 Amount Furosemide 250 mg In 60 Sodium Chloride 0.9% 225 ml @ 10 MG/HR 10 mls/hr IVP .Q24H [facility] Rx#: [id number] Oral 90 200 Output: Urine 1700 1300 Stool 12 Other: Voiding Method Indwelling Catheter Indwelling Catheter # Bowel Movements 1 - Exam General appearance: no average body habitus, cooperative, no disheveled, no mild distress, no morbidly obese, no acute distress, no obese, no severe distress, no thin - EENT Eyes: no abnormal pupil, no anicteric sclerae, no disc margins sharp, no edentulous, no EOMI, no PERRLA, no fundus normal, no photophobia, no dentition normal, no poor dentition, no ptosis, no scleral icterus, normal appearance ENT: no hard of hearing, no hearing grossly normal, no NA/AT, normal oropharynx , no other, no pharyngeal erythema, no thrush, no tonsillar exudates, no tonsillar swelling Ears: bilateral: normal - Neck Neck: no lymphadenopathy, normal ROM, no other, no rigidity, no stridor, no thyromegaly Carotids: bilateral: upstroke normal Thyroid: bilateral: normal size - Respiratory Respiratory: bilateral: CTA, diminished - Cardiovascular Rhythm: regular Heart sounds: normal: S1, S2 Abnormal Heart Sounds: systolic murmur - Gastrointestinal General gastrointestinal: no absent bowel sounds, decreased bowel sounds, no distended, no hepatomegaly, no hyperactive bowel sounds, normal bowel sounds, no organomegaly, no rigid, no scaphoid, soft, no splenomegaly, no tenderness, no umbilical hernia, no ventral hernia - Integumentary Integumentary: Large mass in the right groin, less tender, no cyanotic, no decreased turgor, no flushed, no jaundiced, normal, no normal turgor, pale, rash , no ulcer - Neurologic Neurologic: CNII-XII intact - Musculoskeletal Musculoskeletal: gait normal, generalized weakness, strength equal bilaterally, no right sided weakness, no left sided weakness - Psychiatric Psychiatric: A&O x's 3, appropriate affect, no intact judgment & insight - Labs CBC & Chem 7: 12/12/16 06:06 12/12/16 06:06 Labs: Abnormal Lab Results - Last 24 Hours (Table) 12/11/16 12/11/16 12/11/16 Range/Units 12:09 17:05 20:46 RBC (3.80-5.40) m/uL Hgb (11.4-16.0) gm/dL Hct (34.0-46.0) % Sodium (137-145) mmol/L Potassium (3.5-5.1) mmol/L Chloride (98-107) mmol/L BUN (7-17) mg/dL Creatinine (0.52-1.04) mg/dL Glucose (74-99) mg/dL POC Glucose (mg/dL) 231 H 168 H 114 H (75-99) mg/dL 12/12/16 12/12/16 12/12/16 Range/Units 06:02 06:06 06:06 RBC 3.00 L (3.80-5.40) m/uL Hgb 9.0 L (11.4-16.0) gm/dL Hct 28.0 L (34.0-46.0) % Sodium 136 L (137-145) mmol/L Potassium 3.4 L (3.5-5.1) mmol/L Chloride 93 L (98-107) mmol/L BUN 50 H (7-17) mg/dL Creatinine 2.69 H (0.52-1.04) mg/dL Glucose 160 H (74-99) mg/dL POC Glucose (mg/dL) 207 H (75-99) mg/dL Assessment and Plan Plan: 1 CAD: With multiple coronary artery disease patent lesion in the RCA with stent still open, had 2 more lesion 1 in the LAD and one in the circumflex which Dr. Ahmadi has done an angioplasty and stent placement successfully. 2. Right common femoral hematoma and pseudoaneurysm with early sepsis and cellulitis with possible wound infection developing. Dr. Ybarra on consult. Plan for thrombin injection of the right femoral pseudoaneurysm. Status post repair of pseudoaneurysm right groin. Blood cultures, urine culture, urinalysis , chest x-ray and ID consult added. Ceftaroline changed to oral doxycycline. 3. post [place] with acute coronary syndrome: Patient has done well since her last admission. 4. Acute kidney injury on chronic kidney disease stage III post kidney transplant, patient is still seen nephrology regular basis which will be followed daily with repeat BUN/creatinine. Sodium bicarb, Lasix IVP, Zaroxolyn. Protein supplement increased to 3 times daily. 5. Acute diastolic heart failure. Patient currently on Lasix gtt. 6. diabetes mellitus type 2: Patient is on insulin pump at home. Decrease lantus and continue Accu-Chek with sliding scales coverage and scheduled Humalog added with meals. 7. hyperlipidemia: On Lipitor 20 mg daily. 8. GERD: Patient is on Zantac or H2 jai and doing well. 9. post renal transplant: Patient to continue CellCept 750 mg orally twice a day along with Prograf 2 mg twice a day and prednisone 5 mg daily. 10. hypertension: Continue atenolol 100 mg daily. Norvasc was discontinued. 11. Urinary retention for which patient required Rosario cath. Discontinue Rosario today, monitor for urinary retention, continue Flomax. 12. Acute blood loss anemia status post transfusion and anemia of chronic kidney disease. On . CODE STATUS: Full code. Discharge plan: Home with home care on Wednesday Impression and plan of care have been directed as dictated by the signing physician. Lainey Cameron nurse practitioner acting as scribe for signing physician. Time with Patient: Greater than 30
--- NOTE | 2016-12-12 10:14 | P.PN ---
Subjective Principal diagnosis: Circumflex stent This is a pleasant 66-year-old female who was admitted to the hospital , underwent angioplasty, subsequently developed a pseudoaneurysm, requiring thrombin injection. Patient has a history of a kidney transplant, currently on IV Lasix drip, as well as Zaroxolyn 5 mg daily . Nephrology is following along closely. Creatinine today 2.6. Patient is sitting up in the chair at the time of my examination, overall feeling much better again today. Breathing much improved. Blood pressure 128/60 . Nephrology today has discontinued on IV Lasix drip and put the patient on IV push Lasix. Her Rosario catheter was also discontinue this morning by nephrology, plan is for her to possibly be discharged home tomorrow if stable. Objective - Vital Signs Vital signs: Vital Signs Temp 98.3 F 12/12/16 04:00 Pulse 68 12/12/16 08:15 Resp 16 12/12/16 04:00 BP 128/60 12/12/16 04:00 Pulse Ox 93 L 12/12/16 04:00 Intake & Output 12/11/16 12/12/16 12/12/16 18:59 06:59 18:59 Intake Total 150 200 Output Total 1712 1300 Balance -1562 -1100 Weight 97.2 kg Intake: Intake, IV Titration 60 Amount Furosemide 250 mg In 60 Sodium Chloride 0.9% 225 ml @ 10 MG/HR 10 mls/hr IVP .Q24H [facility] Rx#: [id number] Oral 90 200 Output: Urine 1700 1300 Stool 12 Other: Voiding Method Indwelling Catheter Indwelling Catheter # Bowel Movements 1 - Exam PHYSICAL EXAMINATION: HEENT: Head is atraumatic, normocephalic. Pupils equal, round. Neck is supple. There is no elevated jugular venous pressure. HEART EXAMINATION: Heart S1, S2 normal. No murmur or gallop heard. CHEST EXAMINATION: Lungs are clear with diminished air entry to bilateral bases ABDOMEN: Soft, obese, nontender. Bowel sounds are heard. No organomegaly noted. EXTREMITIES: 2+ peripheral pulses with large amount of ecchymosis from the groin down to the knee, soft, no hematoma, no further drainage, mild tenderness. 1+ edema bilaterally Clarence wraps in place bilaterally. NEUROLOGIC patient is awake, alert and oriented -3. . - Labs CBC & Chem 7: 12/12/16 06:06 12/12/16 06:06 Labs: Abnormal Lab Results - Last 24 Hours (Table) 12/11/16 12/11/16 12/11/16 Range/Units 12:09 17:05 20:46 RBC (3.80-5.40) m/uL Hgb (11.4-16.0) gm/dL Hct (34.0-46.0) % Sodium (137-145) mmol/L Potassium (3.5-5.1) mmol/L Chloride (98-107) mmol/L BUN (7-17) mg/dL Creatinine (0.52-1.04) mg/dL Glucose (74-99) mg/dL POC Glucose (mg/dL) 231 H 168 H 114 H (75-99) mg/dL 12/12/16 12/12/16 12/12/16 Range/Units 06:02 06:06 06:06 RBC 3.00 L (3.80-5.40) m/uL Hgb 9.0 L (11.4-16.0) gm/dL Hct 28.0 L (34.0-46.0) % Sodium 136 L (137-145) mmol/L Potassium 3.4 L (3.5-5.1) mmol/L Chloride 93 L (98-107) mmol/L BUN 50 H (7-17) mg/dL Creatinine 2.69 H (0.52-1.04) mg/dL Glucose 160 H (74-99) mg/dL POC Glucose (mg/dL) 207 H (75-99) mg/dL Assessment and Plan (1) Presence of stent in LAD coronary artery Status: Acute (2) Presence of stent in left circumflex coronary artery Status: Acute (3) Femoral artery pseudoaneurysm complicating cardiac catheterization Status: Acute (4) Renal insufficiency Status: Acute (5) Hx of kidney transplant Status: Acute (6) Diabetes Status: Acute (7) HTN (hypertension) Status: Acute (8) Hyperlipemia Status: Acute (9) Anemia Status: Acute Plan: From cardiology's perspective, would recommend to continue current medications. IV Lasix drip has been discontinued and patient will be started on IV push Lasix by nephrology. Plans are being made for possible discharge home in 24 to 48 hours. DNP note has been reviewed, I agree with a documented findings and plan of care. Patient was seen and examined.
[2016-12-12 12:20] LABS: Glucose,Whole Blood 232 mg/dL (75-99)
[2016-12-12 16:55] LABS: Glucose,Whole Blood 151 mg/dL (75-99)
[2016-12-12 20:41] LABS: Glucose,Whole Blood 153 mg/dL (75-99)
[2016-12-13] MEDS: ALPRAZolam 0.5 MG TAB PO PRN (00:17)
[2016-12-13 02:06] LABS: Glucose,Whole Blood 118 mg/dL (75-99)
[2016-12-13 06:18] LABS: Glucose,Whole Blood 70 mg/dL (75-99)
[2016-12-13] MEDS: INSULIN LISPRO (humaLOG) 300 UNIT/3 ML VIAL SQ SCH ×2 (06:24→11:58)
[2016-12-13] MEDS: INSULIN LISPRO SQ SCH ×2 (06:24→11:58)
[2016-12-13] MEDS: FERROUS SULFATE 325 MG TAB PO SCH (06:36)
[2016-12-13 07:15] LABS: CH 29.9; CHCM 33.8; HCT 27.2 % (34.0-46.0); HDW 3.17; HGB 8.7 gm/dL (11.4-16.0); MCH 28.5 pg (25.0-35.0); MCV 89.2 fL (80.0-100.0); Mean Platelet Volume 7.9; RBC 3.05 m/uL (3.80-5.40); RDW 14.7 % (11.5-15.5); WBC 9.1 k/uL (3.8-10.6)
[2016-12-13 07:28] LABS: Calcium 9.5 mg/dL (8.4-10.2); Potassium 3.2 mmol/L (3.5-5.1)
[2016-12-13] MEDS: LEVALBUTEROL NEB 1.25 MG/3 ML AMP INHALATION SCH ×2 (08:22→12:05)
[2016-12-13] MEDS: LACTULOSE 20 GM/30 ML CUP PO SCH (08:34)
[2016-12-13] MEDS: MYCOPHENOLATE MOFETIL 250 MG CAP PO SCH (08:34)
[2016-12-13] MEDS: DOXYCYCLINE 50 MG CAP PO SCH (08:34)
[2016-12-13] MEDS: FUROSEMIDE 10 MG/ML 4 ML VIAL IV SCH (08:35)
[2016-12-13] MEDS: TACROLIMUS 1 MG CAP PO SCH (08:35)
[2016-12-13] MEDS: ATORVASTATIN 80 MG TAB PO SCH (08:35)
[2016-12-13] MEDS: predniSONE 5 MG TAB PO SCH (08:35)
[2016-12-13] MEDS: hydrALAZINE HCL 50 MG TAB PO SCH (08:35)
[2016-12-13] MEDS: SODIUM BICARBONATE TAB 650 MG TAB PO SCH (08:35)
[2016-12-13] MEDS: CHOLECALCIFEROL 1,000 UNIT TAB PO SCH (08:36)
[2016-12-13] MEDS: RANITIDINE SYRUP 150 MG/10 ML CUP PO SCH (08:36)
[2016-12-13] MEDS: METOLAZONE 5 MG TAB PO SCH (08:36)
[2016-12-13] MEDS: ASPIRIN 81 MG CHEW PO SCH (08:36)
[2016-12-13] MEDS: ATENOLOL 50 MG TAB PO SCH (08:36)
[2016-12-13] MEDS: TAMSULOSIN 0.4 MG CAP.ER.24H PO SCH (08:37)
[2016-12-13] MEDS: CLOPIDOGREL 75 MG TAB PO SCH (08:37)
[2016-12-13] MEDS: INSULIN GLARGINE 100 UNIT/ML 10 ML VIAL SQ SCH (08:37)
[2016-12-13] MEDS: amLODIPine 5 MG TAB PO SCH (08:37)
[2016-12-13] MEDS ORDERED: POTASSIUM CHLORIDE ER 20 MEQ TAB.ER PO ONE (09:15)
[2016-12-13 09:26] VITALS: BP 133/62; PULSE 75; RESP 18; TEMP 97.8
--- NOTE | 2016-12-13 09:43 | P.PN ---
Subjective Principal diagnosis: followup for NOELLE and volume overload. Doing much better and planning on discharge. Objective - Vital Signs Vital signs: Vital Signs Temp 97.8 F 12/13/16 08:00 Pulse 87 12/13/16 08:35 Resp 18 12/13/16 08:00 BP 133/62 12/13/16 08:00 Pulse Ox 95 12/13/16 08:00 Intake & Output 12/12/16 12/13/16 12/13/16 18:59 06:59 18:59 Intake Total 560 300 Output Total 709 Balance -149 300 Weight 96.7 kg Intake: IV 200 0.9 NS at 20 ml/hr 160 Furosemide 250 mg In 40 Sodium Chloride 0.9% 225 ml @ 10 MG/HR 10 mls/hr IVP .Q24H [facility] Rx#: [id number] Oral 360 300 Output: Urine 700 Stool 9 Other: Voiding Method Toilet Toilet # Voids 1 1 - Constitutional General appearance: Present: cooperative - Respiratory Respiratory: bilateral: diminished - Cardiovascular Rhythm: regular Heart sounds: normal: S1, S2 - Peripheral edema leg Peripheral Edema: bilateral: 1+ - Gastrointestinal General gastrointestinal: Present: normal bowel sounds - Labs CBC & Chem 7: 12/13/16 05:58 12/13/16 05:58 Labs: Abnormal Lab Results - Last 24 Hours (Table) 12/12/16 12/12/16 12/12/16 Range/Units 12:18 16:53 20:41 RBC (3.80-5.40) m/uL Hgb (11.4-16.0) gm/dL Hct (34.0-46.0) % Potassium (3.5-5.1) mmol/L Chloride (98-107) mmol/L Carbon Dioxide (22-30) mmol/L BUN (7-17) mg/dL Creatinine (0.52-1.04) mg/dL Glucose (74-99) mg/dL POC Glucose (mg/dL) 232 H 151 H 153 H (75-99) mg/dL 12/13/16 12/13/16 12/13/16 Range/Units 02:05 05:58 05:58 RBC 3.05 L (3.80-5.40) m/uL Hgb 8.7 L (11.4-16.0) gm/dL Hct 27.2 L (34.0-46.0) % Potassium 3.2 L (3.5-5.1) mmol/L Chloride 92 L (98-107) mmol/L Carbon Dioxide 32 H (22-30) mmol/L BUN 56 H (7-17) mg/dL Creatinine 2.90 H (0.52-1.04) mg/dL Glucose 57 L (74-99) mg/dL POC Glucose (mg/dL) 118 H (75-99) mg/dL 12/13/16 Range/Units 06:17 RBC (3.80-5.40) m/uL Hgb (11.4-16.0) gm/dL Hct (34.0-46.0) % Potassium (3.5-5.1) mmol/L Chloride (98-107) mmol/L Carbon Dioxide (22-30) mmol/L BUN (7-17) mg/dL Creatinine (0.52-1.04) mg/dL Glucose (74-99) mg/dL POC Glucose (mg/dL) 70 L (75-99) mg/dL Assessment and Plan Plan: Assessment/Plan #1. Nonoliguric NOELLE due to cardiorenal syndrome/contrast nephropathy. -ok for discharge with lasix 40mg bid and metolazone 5mg qd. -fluid restriction 45 oz/day. -check labs later this week. #2. Chronic kidney disease stage III with baseline creatinine near 1.6. #3. 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 #4. Diabetes mellitus. #5. Coronary artery disease. #6. Anemia status post packed red blood cell transfusion.
--- NOTE | 2016-12-13 11:19 | PN ---
66-year-old lady with admitted to hospital for angioplasty and postop course was complicated by pseudoaneurysm and renal failure. She is off Lasix drip, on oral Lasix doing well and is free of symptoms, happy to be going home today. On exam, comfortable at rest. Vital signs are stable. Chest exam reveals good air entry bilaterally. Heart exam reveals first and second heart sounds. No gallop. Exam of the extremities did not reveal any edema. Peripheral pulses are felt. The patient is currently on aspirin, Tenormin, Norvasc, Lipitor, Plavix 75 mg daily and Lasix 40 b.i.d. ASSESSMENT: 1. Status post angioplasty. 2. Pseudoaneurysm, status post repair. 3. Chronic renal failure. PLAN: The patient is doing well. She will be discharged home and follow up with Dr. Menendez in the office.
--- NOTE | 2016-12-13 12:05 | P.DS ---
Providers Date of admission: 11/26/16 13:43 Expected date of discharge: 12/13/16 Attending physician: Claudia Tyler Consults: 11/23/16 18:49 Consult Physician Stat Consulting Provider: Dori Hussein Consult Reason/Comments: Renal Insuff Do you want consulting provider notified?: Yes 11/24/16 12:48 Consult Physician Routine Consulting Provider: [facility] Consult Reason/Comments: Post Interventional patient Do you want consulting provider notified?: Already Contacted 11/24/16 13:03 Consult Physician Routine Consulting Provider: Refugio Cordova Consult Reason/Comments: Diabetes,CRF,S/P PCI Do you want consulting provider notified?: Yes 11/26/16 20:41 Consult Physician Routine Consulting Provider: Poli Wilkinson Consult Reason/Comments: 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 pseudoaneurysm repair, kidney transplant H Do you want consulting provider notified?: Yes 12/07/16 13:10 Consult Physician Stat Consulting Provider: Maico Oneill Consult Reason/Comments: pleural effussion Do you want consulting provider notified?: Already Contacted Primary care physician: Claudia Tyler [facility] Hospital Course: 66-year-old female one of my office patient of known for long time was hospitalized in November 05 of November 10, 2016 for acute myocardial infarction with acute coronary syndrome ended up going for angiogram showed significant stenosis in the LAD and circumflex. Patient kidney function had declined slightly ended up going home after being hydrated and watch her kidney function was seen in the office and see Dr. Ahmadi and patient brought to the hospital on 11/23/2016 for an angioplasty, procedure was done successfully and patient is resting comfortably with no complaint, nephrology consultation was requested and BUN/creatinine to be done an daily basis for the next 2 days. Patient will be admitted for 48 hours. 11/25: Hemoglobin 7.1, BUN 36 and creatinine 1.9. She is status post PTCA and stenting of a complex torturous mid circumflex coronary artery. Nephrology is following. She is continued on Mucomyst and scheduled for IV Ferrlecit 3 days. Patient has developed a right common femoral hematoma and pseudoaneurysm. Dr. Ybarra has evaluated the patient and she is a candidate for thrombin injection of the right femoral pseudoaneurysm. 11/26: Hemoglobin 6.5, BUN 41 and creatinine 2.26. She is continued on Ferrlecit and scheduled for transfusion 1 unit packed RBCs. IV fluids at 50 mL per hour. Patient will complete Mucomyst today. Repeat Ultrasound of the groin today. Bladder scan as needed. 11/27: Yesterday patient underwent repair of perforation of a right profunda femoris artery and evacuation of right groin hematoma with Dr. Ybarra and was subsequently admitted to the ICU. She has a Rosario catheter in place and urine output has been adequate. Rosario will be discontinued this morning. She states she has much decreased pain to the right groin area. She denies any chest pain , shortness of breath. PT is working with her today. Patient is receiving her third dose of Ferrlecit. She has completed her course of Mucomyst. IV fluids at 50 mL per hour. Repeat BUN 40 and creatinine 2.3. Repeat chest x-ray shows borderline cardiomegaly and interstitial prominence which may be chronic. Correlate to exclude mild CHF. 11/28: Patient states that the groin site remains better in regards to pain. Site is warm to the touch. She did have a temperature of 101.2 this morning blood cultures, urinalysis urine culture and chest x-ray have been ordered. Patient does not have a cough or sputum production. She is complaining of feeling achy all over. She has minimal urine output Rosario was removed last night. Morning blood sugar was 95 and patient is on insulin pump. BUN 40 with creatinine 2.7 and hemoglobin 8.4. Infectious disease consult added. Patient is complaining of sore throat for which Cepacol lozenges added. 11/29: Patient is more comfortable able to ambulate out of bed with help her hemoglobin dropped down slightly but she is feeling better she was transfer out of the intensive care unit yesterday. No need for blood transfusion yet but hemoglobin is below 8 we'll wait till tomorrow repeat another CBC if it remain in the mid 7 transfusion be done. Expectation for discharge hopefully over the next 48 hours creatinine has plateau over the last 2 days with no significant declining kidney function at this point 11/30: Ultrasound venous Doppler duplex of the right lower extremity is negative for DVT. Patient complains of nausea this morning for which Zofran has been added. She was given Lasix 60 mg IV 1. She states her breathing status is okay. Repeat BUN 40 and creatinine 2.8, potassium 4.1. Hemoglobin 7.8. She is currently on Ceftaroline and followed by Dr. Rendon. 12/01: BUN today is [address] Rendon as recommended most likely doxycycline at the time of discharge.she is status post Lasix 1 dose today. She is on fluid restriction.she hasn't some problem with urinary retention for which she was straight cathed.nephrology has started Flomax. 12/02: BUN 42 and creatinine 2.79. Hemoglobin 7.4. Fluid balance is -950. Weight is same from yesterday. She states she feels puffy. No lasix today. 12/03: Nephrology has continue patient on IV Lasix. Norvasc discontinued as patient's blood pressure is on the low side. She is continued on sodium bicarb. Kidney function continues to improve with BUN 39 creatinine 2.62. Hemoglobin is stable at 7.7. Blood sugars running 110-163. 12/04: Bun 39 and creatinine 2.6. Good urine output. She is continued on Lasix 40 mg IV twice daily. Weight is slightly up today. Aranesp was started. 12/05: Patient is sitting up in chair at her was at the bedside, the patient continues to have significant anasarca all over her body with significant bruising to the right upper extremity yet her creatinine is about the same 2.6. 12/06: Patient is complaining of significant shortness of breath, as well as significant swelling in both lower extremities and upper extremities as a matter fact she could not even walk a few steps without getting extremely short of breath, she was given Lasix 60 minute gram IV push 1 this will be repeated again in 12 hours. 12/07: Repeat hemoglobin 7.8, BUN [address] Ybarra recommending sutures out in one week and follow-up in the office on December 14. Patient is having worsening fluid overload, shortness of breath and lethargy and started on lasix drip. IV antibiotics changed to oral. Protein supplement increased to three times daily. She denies any chest pain. 12/08: BUN 44 and creatinine 2.51. Hemoglobin 7.4 and one unit of blood ordered. Blood sugars this morning were low at 61 and repeat 67 and 93. She has not been eating much. Lantus decreased to 18 units. Weight today is 102.1 kg down only 0.2 kg from yesterday. Urine out is improved. She remains on Lasix drip. She did not sleep well last night and was uncomfortable in bed. Patient states she feels better today. 12/09: BUN 45 and creatinine 2.52. Hemoglobin 9.2. The blood glucose this morning was 64 and repeat 75. And Lantus will be decreased again down to 16 units with scheduled Humalog 3 units with each meal and scale. Weight is down 1 kg from yesterday. Lasix drip changed over to Lasix 40 mg IV every 8 hours. Repeat chest x-ray ordered for the morning. Patient has SALVATORE hose in place are cutting into legs and Clarence wraps will be requested. 12/10: Patient was continued on Lasix drip but increased to 10 mg/h by nephrology. Repeat chest x-ray shows overall stable findings with persistent small to moderate-sized bilateral pleural effusions and mild to moderate central vascular congestion all redemonstrated. No significant change from prior. Capillary blood glucose running between 161 and 189. BUN 44 and creatinine 2.48. Breathing is improving. She does have shortness of breath worsening with exertion. She was able to get up and take a shower this morning 12/11: In creatinine 2.67, hemoglobin 8.4. Blood glucose running between 160 and 262. History Lantus was increased due to elevated blood sugars in the afternoon and patient has been unable to tolerate more food. Weight is down another kilogram. She is continued on Lasix drip at decreased rate of 5 mg per hour and Zaroxolyn [address] Hussein is planning to switch her over to IV push Lasix later today. She is currently off oxygen and states she is feeling much improved today. We will plan to have Rosario catheter removed in the morning and do voiding trial with anticipated discharge on Wednesday. 12/12: Open 9.0, BUN 50 and creatinine 2.69. Capillary blood glucose running between 114 and 207. She is currently on IV Lasix 40 mg every 12 hours and Zaroxolyn 5 mg daily. Weight is down 1.7 kg from yesterday. Rosario catheter is to be removed today and monitor for urinary retention. Nephrology has cleared her for discharge today. Plan will be to increase activity monitor for urinary retention continue IV Lasix and discharged home tomorrow. Home care is in place. 12/13: Repeat hemoglobin 8.7, BUN 56 and creatinine 2.9, potassium 3.2 and chloride 92. Patient has been cleared for discharge by nephrology with recommendations for Lasix 40 mg twice daily, metolazone 5 mg daily and 45 pounds fluid restriction daily. Patient is also started on new medications of hydralazine, amlodipine, tamsulosin, sodium bicarb potassium and Plavix. Patient is being discharged home today in stable condition. She does have home care set up with plan for physical therapy at home. Discharge diagnoses: 1 CAD: With multiple coronary artery disease status post Dr. NAINA Ahmadi has done an angioplasty and stent placement successfully. 2. Right common femoral hematoma and pseudoaneurysm with early sepsis and cellulitis with possible wound infection developing status post thrombin injection of the right femoral pseudoaneurysm and repair of pseudoaneurysm right groin. Unexpected postop complication. 3. post CA with acute coronary syndrome with prior myocardial infarction on 03/2016 4. Acute kidney injury on chronic kidney disease stage III post kidney transplant 5. Acute diastolic heart failure 6. diabetes mellitus type 2 7. hyperlipidemia 8. GERD 9. post renal transplant 10. hypertension 11. Urinary retention 12. Acute blood loss anemia status post transfusion and anemia of chronic kidney disease Discharge plan: Home with home care on Wednesday Impression and plan of care have been directed as dictated by the signing physician. Lainey Cameron nurse practitioner acting as scribe for signing physician. Patient Condition at Discharge: Good Plan - Discharge Summary New Discharge Prescriptions: Clopidogrel [Plavix] 75 mg PO DAILY #30 tab Furosemide [Lasix] 40 mg PO BID #60 tablet Metolazone [Zaroxolyn] 5 mg PO DAILY #30 tab Potassium Chloride ER [K-Dur 20] 20 meq PO DAILY #30 tab Sodium Bicarbonate Tab 1,300 mg PO BID #60 tab Tamsulosin [Flomax] 0.4 mg PO PC-BRKFST #30 cap.er.24h amLODIPine [Norvasc] 5 mg PO DAILY #30 tab hydrALAZINE HCL [Apresoline] 50 mg PO QID #120 tab Discharge Medication List Ascorbic Acid [Vitamin C] 500 mg PO DAILY 04/09/15 [History] Aspirin EC [Ecotrin Low Dose] 81 mg PO DAILY 04/09/15 [History] Atenolol [Tenormin] 100 mg PO DAILY 04/09/15 [History] Cholecalciferol [Vitamin D3] 2,000 unit PO DAILY 04/09/15 [History] Ferrous Sulfate [Iron (65 MG Elemental)] 325 mg PO DAILY 04/09/15 [History] Mycophenolate Mofetil [Cellcept] 500 mg PO BID@0900,209904/09/15 [History] Tacrolimus [Prograf] 2 mg PO BID 04/09/15 [History] predniSONE 5 mg PO DAILY 04/09/15 [History] HYDROcodone/APAP 5-325MG [[place] 5-325] 1 tab PO Q6H PRN 03/04/16 [History] Multivits-Min/Iron/FA/Lutein [Centrum Silver Women Tablet] 1 tab PO DAILY [History] Nitroglycerin Sl Tabs [Nitrostat] 0.4 mg SUBLINGUAL DIRECTED PRN 03/04/16 [ History] Vitamin B Complex 1 cap PO DAILY 03/04/16 [History] Albuterol Inhaler [Ventolin Hfa Inhaler] 2 puff INHALATION RT-Q4H PRN 09/16/16 [ History] Glucagon Emergency Kit 1 mg IM DIRECTED PRN 09/16/16 [History] Ranitidine HCl [Zantac] 75 mg PO DAILY 09/16/16 [History] rOPINIRole HCL [Requip] 1 mg PO BID #0 09/17/16 [Rx] Atorvastatin [Lipitor] 80 mg PO DAILY #30 tab 11/10/16 [Rx] Mycophenolate Mofetil [Cellcept] 250 mg PO BID@0900,2100 #0 NS 11/10/16 [Rx] Rutin/Quercetin/Bioflav/Bilber [Bilberry Extract] 40 mg PO DAILY 11/19/16 [ History] INSULIN LISPRO (For Pump) [humaLOG (For Pump)] 0.01 units SQ-PUMP CONTINUOUS [History] Clopidogrel [Plavix] 75 mg PO DAILY #30 tab 12/13/16 [Rx] Furosemide [Lasix] 40 mg PO BID #60 tablet 12/13/16 [Rx] Metolazone [Zaroxolyn] 5 mg PO DAILY #30 tab 12/13/16 [Rx] Potassium Chloride ER [K-Dur 20] 20 meq PO DAILY #30 tab 12/13/16 [Rx] Sodium Bicarbonate Tab 1,300 mg PO BID #60 tab 12/13/16 [Rx] Tamsulosin [Flomax] 0.4 mg PO PC-BRKFST #30 cap.er.24h 12/13/16 [Rx] amLODIPine [Norvasc] 5 mg PO DAILY #30 tab 12/13/16 [Rx] hydrALAZINE HCL [Apresoline] 50 mg PO QID #120 tab 12/13/16 [Rx] Follow up Appointment(s)/Referral(s): [facility] [Provider Group] - 1 Week Dori Hussein MD [STAFF PHYSICIAN] - 3 Days (. Lab work on Wednesday) Yana Ybarra MD [STAFF PHYSICIAN] - 1 Week Refugio Cordova MD [STAFF PHYSICIAN] - 1 Week Ambulatory/Diagnostic Orders: Complete Blood Count w/diff [LAB.AMB] Location: Determined By Patient Comprehensive Metabolic Panel [LAB.AMB] Location: Determined By Patient Patient Instructions/Handouts: After Heart Catheterization - Copy Manager, Pleurisy (DC), Kidney Transplant (DC), Pleural Effusion (DC) Activity/Diet/Wound Care/Special Instructions: Fluid restriction of 45 ounces/day. Discharge Disposition: HOME WITH HOME HEALTH SERVICES
[2016-12-13] MEDS ORDERED: FUROSEMIDE 40 MG TAB PO SCH (16:00)
== END 2016-12-13 14:05 | disposition home or self-care (01) | DRG 907 ==
LOC: EDSTATUS 11:30 → 4FBP 18:15 → EDSTATUS 11-24 11:30 → 6SEL 11-24 12:42 → OBSVTOIN 11-26 13:43 → 6ICU 11-26 19:57 → 6SEL 11-28 22:48
PROVIDERS: ADMIT Family Medicine; ATTEND Family Medicine
PROC: 0Y370ZZ Control Bleeding in Right Femoral Region, Open Approach (ICD-10-PCS; 2016-11-26)
PROC: 30233N1 Transfusion of Nonautologous Red Blood Cells into Peripheral Vein, Percutaneous Approach (ICD-10-PCS; principal; 2016-11-26 17:15)
DX: I97.630 Postprocedural hematoma of a circulatory system organ or structure following a cardiac catheterization (principal); A41.9 Sepsis, unspecified organism; I21.3 ST elevation (STEMI) myocardial infarction of unspecified site; N17.0 Acute kidney failure with tubular necrosis; I50.31 Acute diastolic (congestive) heart failure; E87.2 Acidosis; N18.4 Chronic kidney disease, stage 4 (severe); L03.115 Cellulitis of right lower limb; T81.4XXA Infection following a procedure, initial encounter; D62 Acute posthemorrhagic anemia; E87.1 Hypo-osmolality and hyponatremia; I25.110 Atherosclerotic heart disease of native coronary artery with unstable angina pectoris; Z94.0 Kidney transplant status; E11.22 Type 2 diabetes mellitus with diabetic chronic kidney disease; Y83.8 Other surgical procedures as the cause of abnormal reaction of the patient, or of later complication, without mention of misadventure at the time of the procedure; D63.1 Anemia in chronic kidney disease; E61.1 Iron deficiency; E78.5 Hyperlipidemia, unspecified; I13.10 Hypertensive heart and chronic kidney disease without heart failure, with stage 1 through stage 4 chronic kidney disease, or unspecified chronic kidney disease; I27.2 Other secondary pulmonary hypertension; I72.4 Aneurysm of artery of lower extremity; K21.9 Gastro-esophageal reflux disease without esophagitis; N14.1 Nephropathy induced by other drugs, medicaments and biological substances; R33.9 Retention of urine, unspecified; T50.8X5A Adverse effect of diagnostic agents, initial encounter; Z79.02 Long term (current) use of antithrombotics/antiplatelets; Z79.4 Long term (current) use of insulin; Z79.52 Long term (current) use of systemic steroids; Z79.82 Long term (current) use of aspirin; Z82.49 Family history of ischemic heart disease and other diseases of the circulatory system; Z88.1 Allergy status to other antibiotic agents; Z96.41 Presence of insulin pump (external) (internal); J02.9 Acute pharyngitis, unspecified; Z88.2 Allergy status to sulfonamides
CPT/HCPCS: 36002; 36430; 71010; 71020; 76604; 76936; 80048; 80053; 80197; 81001; 82728; 83036; 83540; 83550; 83735; 83930; 83935; 84100; 84133; 84300; 85025; 85027; 85610; 86850; 86900; 86901; 86920; 87040; 87086; 93005; 93306; 93922; 93923; 93975; 94640; 94760; 96365; 96366

== ENCOUNTER 2016-12-17 10:06 | Emergency (ER) | payer MEDICARE ==
[2016-12-17] MEDS ORDERED: LORazepam 2 MG/ML SYRINGE IV STA ×2 (10:08→10:20)
[2016-12-17] MEDS ORDERED: ONDANSETRON 4 MG/2 ML VIAL IVP STA (10:08)
--- NOTE | 2016-12-17 10:19 | ED ---
General Adult HPI - General Stated complaint: Weakness Time Seen by Provider: 12/17/16 10:06 Source: RN notes reviewed - History of Present Illness Initial comments: This is a 66-year-old female presents to the emergency department with a recent past medical history significant for cardiac stent. Patient states she went home 3 days ago. Patient states she's also had renal failure. Patient states she woke up this morning felt weak and was nauseated and then started becoming anxious and starting having chest tightness. She states the chest tightness is typical for her for her anxiety and he did not feel at all like the pain she had when she had a heart attack. Patient states now that the emesis came in she was in the hospital she's already feeling better. She still remains a little nauseated. Patient remains mildly anxious - Related Data Home Medications Medication Instructions Recorded Confirmed Ascorbic Acid [Vitamin C] 500 mg PO DAILY 04/09/15 12/17/16 Aspirin EC [Ecotrin Low Dose] 81 mg PO DAILY 04/09/15 12/17/16 Atenolol [Tenormin] 100 mg PO DAILY 04/09/15 12/17/16 Cholecalciferol [Vitamin D3] 2,000 unit PO DAILY 04/09/15 12/17/16 Ferrous Sulfate [Iron (65 MG 325 mg PO DAILY 04/09/15 12/17/16 Elemental)] Mycophenolate Mofetil [Cellcept] 500 mg PO BID@0900,2100 04/09/15 12/17/16 Tacrolimus [Prograf] 2 mg PO BID 04/09/15 12/17/16 predniSONE 5 mg PO DAILY 04/09/15 12/17/16 HYDROcodone/APAP 5-325MG [Entiat 1 tab PO Q6H PRN 03/04/16 12/17/16 5-325] Multivits-Min/Iron/FA/Lutein 1 tab PO DAILY 03/04/16 12/17/16 [Centrum Silver Women Tablet] Nitroglycerin Sl Tabs [Nitrostat] 0.4 mg SUBLINGUAL Q5M PRN 03/04/16 12/17/16 Vitamin B Complex 1 cap PO DAILY 03/04/16 12/17/16 Albuterol Inhaler [Ventolin Hfa 2 puff INHALATION RT-Q4H PRN 09/16/16 12/17/16 Inhaler] Glucagon Emergency Kit 1 mg IM DIRECTED PRN 09/16/16 12/17/16 Ranitidine HCl [Zantac] 75 mg PO DAILY 09/16/16 12/17/16 Rutin/Quercetin/Bioflav/Bilber 40 mg PO DAILY 11/19/16 12/17/16 [Bilberry Extract] INSULIN LISPRO (For Pump) [humaLOG 0.01 units SQ-PUMP CONTINUOUS 11/26/16 (For Pump)] Aspirin 325 mg PO ONCE PRN 12/17/16 12/17/16 Ubidecarenone [Co Q-10] 100 mg PO DAILY 12/17/16 12/17/16 rOPINIRole HCL [Requip] 1 mg PO BID PRN 12/17/16 12/17/16 Previous Rx's Medication Instructions Recorded Atorvastatin [Lipitor] 80 mg PO DAILY #30 tab 11/10/16 Mycophenolate Mofetil [Cellcept] 250 mg PO BID@0900,2100 #0 NS 11/10/16 Clopidogrel [Plavix] 75 mg PO DAILY #30 tab 12/13/16 Furosemide [Lasix] 40 mg PO BID #60 tablet 12/13/16 Metolazone [Zaroxolyn] 5 mg PO DAILY #30 tab 12/13/16 Potassium Chloride ER [K-Dur 20] 20 meq PO DAILY #30 tab 12/13/16 Sodium Bicarbonate Tab 1,300 mg PO BID #60 tab 12/13/16 Tamsulosin [Flomax] 0.4 mg PO PC-BRKFST #30 cap.er.24h 12/13/16 amLODIPine [Norvasc] 5 mg PO DAILY #30 tab 12/13/16 hydrALAZINE HCL [Apresoline] 50 mg PO QID #120 tab 12/13/16 ALPRAZolam [Xanax] 0.25 mg PO TID PRN #20 tab 12/17/16 Ondansetron Odt [Zofran Odt] 4 mg PO Q6H PRN #10 tab 12/17/16 Allergies Allergy/AdvReac Type Severity Reaction Status Date / Time Sulfa (Sulfonamide Allergy Rash/Hives Verified 12/17/16 10:12 Antibiotics) vancomycin Allergy Rash/Hives Verified 12/17/16 10:12 venom-honey bee Allergy Swelling Verified 12/17/16 10:12 [bee venom (honey bee)] metoprolol tartrate AdvReac Confusion Verified 12/17/16 10:12 [From Lopressor] Review of Systems ROS Statement: Those systems with pertinent positive or pertinent negative responses have been documented in the HPI. ROS Other: All systems not noted in ROS Statement are negative. Past Medical History Past Medical History: Coronary Artery Disease (CAD), Diabetes Mellitus, GERD/ Reflux, Hyperlipidemia, Hypertension, Renal Disease Additional Past Medical History / Comment(s): Chronic renal disease stage III with previous renal transplant, chronic anemia, IDDM with insulin pump, gluten free diet, neuropathy History of Any Multi-Drug Resistant Organisms: None Reported Past Surgical History: Section, Heart Catheterization, Heart Catheterization With Stent, Orthopedic Surgery Additional Past Surgical History / Comment(s): 2004 Kidney transplant at [facility] , bilateral cataracts, retinal peeling in left eye, L achilles tendon repair , L upper arm dialysis fistula, 2 cardiac stents, 2 c/s Past Anesthesia/Blood Transfusion Reactions: Motion Sickness, Postoperative Nausea & Vomiting (PONV) Additional Past Anesthesia/Blood Transfusion Reaction / Comment(s): PONV after C /S Date of Last Stent Placement:: approx 2012 Past Psychological History: No Psychological Hx Reported Additional Psychological History / Comment(s): . Smoking Status: Never smoker Past Alcohol Use History: Occasional Additional Past Alcohol Use History / Comment(s): Patient is a lifelong nonsmoker. She does drink red wine OCC LESS THEN 7 GLASSES PER WEEK Past Drug Use History: None Reported - Past Family History Father Family Medical History: Myocardial Infarction (PR) Additional Family Medical History / Comment(s): Father at age 70 from myocardial infarction Mother Family Medical History: Cancer Additional Family Medical History / Comment(s): Mother at age 86 from pneumonia. Sister(s) Family Medical History: Cancer Additional Family Medical History / Comment(s): . General Exam - General Exam Comments Initial Comments: GENERAL: Patient is well-developed and well-nourished. Patient is nontoxic and well- hydrated and is in mild distress. ENT: Neck is soft and supple. No significant lymphadenopathy is noted. Oropharynx is clear. Moist mucous membranes. Neck has full range of motion without eliciting any pain. EYES: The sclera were anicteric and conjunctiva were pink and moist. Extraocular movements were intact and pupils were equal round and reactive to light. Eyelids were unremarkable. PULMONARY: Unlabored respirations. Good breath sounds bilaterally. No audible rales rhonchi or wheezing was noted. CARDIOVASCULAR: There is a regular rate and rhythm without any murmurs gallops or rubs. ABDOMEN: Soft and nontender with normal bowel sounds. SKIN: Skin is clear with no lesions or rashes and otherwise unremarkable. NEUROLOGIC: Patient is alert and oriented x3. Cranial nerves II through XII are grossly intact. Motor and sensory are also intact. Normal speech, volume and content. Symmetrical smile. MUSCULOSKELETAL: Normal extremities with adequate strength and full range of motion. 2+ edema LYMPHATICS: No significant lymphadenopathy is noted PSYCHIATRIC: Normal psychiatric evaluation. Normal interpersonal interactions appears functionally intact in deals appropriately with others. Mildly anxious Course Vital Signs 12/17/16 12/17/16 10:12 11:48 Temperature 97.8 F Pulse Rate 73 69 Respiratory 18 17 Rate Blood Pressure 161/7 136/61 O2 Sat by Pulse 99 Oximetry Medical Decision Making - Medical Decision Making EKG shows sinus rhythm with an occasional PAC at a rate of 67 bpm VT interval is 156 QRS 112 QT interval is 470 QTC is 496. Patient's EKG shows no ST segment elevation or depression or T-wave abnormalities. Patient's chest x-ray shows no acute abnormality and in fact shows improvement of the pleural effusions. I spoke with the patient after she had received some medication she felt completely back to baseline and had no complaint this time. She was requesting to go see her elastic yarn twister because she has no appointment with him. I spoke with Dr. Maurisio Cordova agreed to have the patient follow-up with her elastic yarn twister today and him tomorrow. - Lab Data Result diagrams: 12/17/16 10:40 12/17/16 10:40 Lab Results 12/17/16 12/17/16 12/17/16 Range/Units 10:40 10:40 10:40 WBC 7.2 (3.8-10.6) k/uL RBC 3.24 L (3.80-5.40) m/uL Hgb 9.4 L (11.4-16.0) gm/dL Hct 28.8 L (34.0-46.0) % MCV 89.0 (80.0-100.0) fL MCH 28.9 (25.0-35.0) pg MCHC 32.5 (31.0-37.0) g/dL RDW 14.7 (11.5-15.5) % Plt Count 339 (150-450) k/uL Neutrophils % 67 % Lymphocytes % 14 % Monocytes % 8 % Eosinophils % 5 % Basophils % 0 % Neutrophils # 4.8 (1.3-7.7) k/uL Lymphocytes # 1.0 (1.0-4.8) k/uL Monocytes # 0.6 (0-1.0) k/uL Eosinophils # 0.4 (0-0.7) k/uL Basophils # 0.0 (0-0.2) k/uL PT (9.0-12.0) sec INR (<1.1) APTT (22.0-30.0) sec Sodium 130 L (137-145) mmol/L Potassium 3.6 (3.5-5.1) mmol/L Chloride 90 L (98-107) mmol/L Carbon Dioxide 28 (22-30) mmol/L Anion Gap 12 mmol/L BUN 56 H (7-17) mg/dL Creatinine 2.68 H (0.52-1.04) mg/dL Est GFR (MDRD) Af Amer 22 (>60 ml/min/1.73 sqM) Est GFR (MDRD) Non-Af 18 (>60 ml/min/1.73 sqM) Glucose 149 H (74-99) mg/dL Calcium 9.3 (8.4-10.2) mg/dL Magnesium 1.6 (1.6-2.3) mg/dL Total Bilirubin 0.9 (0.2-1.3) mg/dL AST 32 (14-36) U/L ALT 32 (9-52) U/L Alkaline Phosphatase 70 (38-126) U/L Total Creatine Kinase 96 (30-135) U/L CK-MB (CK-2) 0.8 (0.0-2.4) ng/mL CK-MB (CK-2) Rel Index 0.8 Troponin I 0.017 (0.000-0.034) ng/mL NT-Pro-B Natriuret Pep pg/mL Total Protein 6.0 L (6.3-8.2) g/dL Albumin 3.4 L (3.5-5.0) g/dL 12/17/16 12/17/16 Range/Units 10:40 10:40 WBC (3.8-10.6) k/uL RBC (3.80-5.40) m/uL Hgb (11.4-16.0) gm/dL Hct (34.0-46.0) % MCV (80.0-100.0) fL MCH (25.0-35.0) pg MCHC (31.0-37.0) g/dL RDW (11.5-15.5) % Plt Count (150-450) k/uL Neutrophils % % Lymphocytes % % Monocytes % % Eosinophils % % Basophils % % Neutrophils # (1.3-7.7) k/uL Lymphocytes # (1.0-4.8) k/uL Monocytes # (0-1.0) k/uL Eosinophils # (0-0.7) k/uL Basophils # (0-0.2) k/uL PT 11.3 (9.0-12.0) sec INR 1.1 (<1.1) APTT 22.8 (22.0-30.0) sec Sodium (137-145) mmol/L Potassium (3.5-5.1) mmol/L Chloride (98-107) mmol/L Carbon Dioxide (22-30) mmol/L Anion Gap mmol/L BUN (7-17) mg/dL Creatinine (0.52-1.04) mg/dL Est GFR (MDRD) Af Amer (>60 ml/min/1.73 sqM) Est GFR (MDRD) Non-Af (>60 ml/min/1.73 sqM) Glucose (74-99) mg/dL Calcium (8.4-10.2) mg/dL Magnesium (1.6-2.3) mg/dL Total Bilirubin (0.2-1.3) mg/dL AST (14-36) U/L ALT (9-52) U/L Alkaline Phosphatase (38-126) U/L Total Creatine Kinase (30-135) U/L CK-MB (CK-2) (0.0-2.4) ng/mL CK-MB (CK-2) Rel Index Troponin I (0.000-0.034) ng/mL NT-Pro-B Natriuret Pep 3440 pg/mL Total Protein (6.3-8.2) g/dL Albumin (3.5-5.0) g/dL Disposition Clinical Impression: Anxiety, Nausea Disposition: HOME SELF-CARE Prescriptions: ALPRAZolam [Xanax] 0.25 mg PO TID PRN #20 tab PRN Reason: Anxiety Ondansetron Odt [Zofran Odt] 4 mg PO Q6H PRN #10 tab PRN Reason: Nausea Referrals: Refugio Cordova MD [Primary Care Provider] - 1-2 days Time of Disposition: 13:04
[2016-12-17 10:56] LABS: Aty Lym Flag Slight; Basophils % (A) 0 %; CH 29.7; CHCM 33.5; Eosinophils # (A) 0.4 k/uL (0-0.7); Eosinophils % (A) 5 %; HCT 28.8 % (34.0-46.0); HDW 3.21; HGB 9.4 gm/dL (11.4-16.0); Luc % (Auto) 6; Lymphocytes % (A) 14 %; MCH 28.9 pg (25.0-35.0); MCHC 32.5 g/dL (31.0-37.0); Mean Platelet Volume 6.9; Monocytes # (A) 0.6 k/uL (0-1.0); Monocytes % (A) 8 %; Neutrophils # (A) 4.8 k/uL (1.3-7.7); Neutrophils % (A) 67 %; RBC 3.24 m/uL (3.80-5.40); RDW 14.7 % (11.5-15.5); WBC 7.2 k/uL (3.8-10.6); WBC (Perox) 7.44
[2016-12-17 11:00] LABS: INR 1.1 (<1.1); Partial Thromboplastin Time 22.8 sec (22.0-30.0); Prothrombin Time 11.3 sec (9.0-12.0)
--- NOTE | 2016-12-17 11:04 | XR ---
EXAMINATION TYPE: XR chest 2V DATE OF EXAM: 12/17/2016 11:01 AM HISTORY: Chest tightness. REFERENCE: Previous study dated 12/10/2016. FINDINGS: The lungs are overinflated. The heart is mildly enlarged. There is a left pleural effusion. This is smaller than previous. There is a smaller right pleural effusion. There is mild vascular con gestion without kurt edema. IMPRESSION: 1. COPD. 2. MILD CARDIOMEGALY. 3. RESOLVING, BILATERAL EFFUSIONS.
[2016-12-17 11:12] LABS: Calcium 9.3 mg/dL (8.4-10.2); Magnesium 1.6 mg/dL (1.6-2.3); Total Bilirubin 0.9 mg/dL (0.2-1.3)
[2016-12-17 11:14] LABS: Potassium 3.6 mmol/L (3.5-5.1)
[2016-12-17 11:35] LABS: Creatine Kinase MB 0.8 ng/mL (0.0-2.4); Troponin I 0.017 ng/mL (0.000-0.034)
[2016-12-17 11:49] VITALS: RESP 17
[2016-12-17 13:14] VITALS: BP 130/61; PULSE 65; TEMP 97.7
== END 2016-12-17 13:13 | disposition home or self-care (01) ==
LOC: EC 10:06
DX: F41.9 Anxiety disorder, unspecified (principal); R11.0 Nausea; I51.7 Cardiomegaly; J90 Pleural effusion, not elsewhere classified; J44.9 Chronic obstructive pulmonary disease, unspecified; E11.22 Type 2 diabetes mellitus with diabetic chronic kidney disease; K21.9 Gastro-esophageal reflux disease without esophagitis; I25.10 Atherosclerotic heart disease of native coronary artery without angina pectoris; D64.9 Anemia, unspecified; G62.9 Polyneuropathy, unspecified; E78.5 Hyperlipidemia, unspecified; I12.9 Hypertensive chronic kidney disease with stage 1 through stage 4 chronic kidney disease, or unspecified chronic kidney disease; N18.3 Chronic kidney disease, stage 3 (moderate); Z94.0 Kidney transplant status; Z79.4 Long term (current) use of insulin; Z96.41 Presence of insulin pump (external) (internal); Z88.2 Allergy status to sulfonamides; Z88.1 Allergy status to other antibiotic agents; Z88.8 Allergy status to other drugs, medicaments and biological substances; Z95.5 Presence of coronary angioplasty implant and graft; Z99.2 Dependence on renal dialysis; Z79.02 Long term (current) use of antithrombotics/antiplatelets; Z79.82 Long term (current) use of aspirin; Z91.030 Bee allergy status; Z79.899 Other long term (current) drug therapy
CPT/HCPCS: 36415; 93005; 83880; 80053; 82550; 82553; 83735; 84484; 85025; 85610; 85730; 71020; 99285; 96374; 96375; J2060; J2405

== ENCOUNTER → 2017-02-08 | Outpatient (CLI) | payer MEDICARE ==
[~2017-02-08] MED LIST changes: -ALBUTEROL INHALER 60 PUFF/8 GM INHALER INHALATION PRN; -ASCORBIC ACID 500 MG TAB PO SCH; -ATORVASTATIN 80 MG TAB PO SCH; -CHOLECALCIFEROL 1,000 UNIT TAB PO SCH; -FERROUS SULFATE 325 MG TAB PO SCH; -HYDROcodone/APAP 5-325MG 1 EACH TAB PO PRN; -IRON PO SCH; +IRON SUCROSE 200 MG in SODIUM CHLORIDE 0.9% 100 ML IVPB ONE; -LUTEIN PO SCH; -MULTIVITS MIN PO SCH; -NITROGLYCERIN SL TABS 0.4 MG TAB SUBLINGUAL PRN; -NON-FORMULARY DRUG (Aspirin Ec 81 MG) PO SCH; -NON-FORMULARY DRUG (Atenolol [Tenormin] 100 MG) PO SCH; -NON-FORMULARY DRUG (Ranitidine Hcl [Zantac] 75 MG) PO SCH; -NON-FORMULARY DRUG (Vitamin B Complex [Vitamin B Complex] 1 CAP) PO SCH; +SODIUM CHLORIDE 0.9% 250 ML in EMPTY BAG 1 BAG IV PRN; +SODIUM CHLORIDE 0.9% 500 ML in EMPTY BAG 1 BAG IV PRN; -[UNRECOGNIZED DRUG - MIXTURE] PO SCH; -[UNRECOGNIZED DRUG - OTHER] PO SCH; -predniSONE 5 MG TAB PO SCH
[2017-02-08 14:46] VITALS: BP 174/74; PULSE 72; RESP 18; TEMP 98.4
== END | disposition home or self-care (01) ==
LOC: PROCWHC3 13:54
PROVIDERS: ATTEND Internal Medicine Geriatric Medicine
DX: D50.9 Iron deficiency anemia, unspecified (principal)
CPT/HCPCS: 96365; J1756

== ENCOUNTER → 2017-05-19 | Outpatient (CLI) | payer MEDICARE ==
[2017-05-19 10:22] LABS: Basophils % (A) 1 %; CH 28.4; CHCM 30.8; Eosinophils # (A) 0.1 k/uL (0-0.7); Eosinophils % (A) 2 %; HCT 31.1 % (34.0-46.0); HDW 2.54; HGB 9.4 gm/dL (11.4-16.0); Hypochromasia Moderate; Luc # (Auto) 0.18; Luc % (Auto) 3; Lymphocytes # (A) 1.2 k/uL (1.0-4.8); Lymphocytes % (A) 19 %; MCH 28.1 pg (25.0-35.0); MCHC 30.3 g/dL (31.0-37.0); MCV 92.7 fL (80.0-100.0); Mean Platelet Volume 7.7; Monocytes # (A) 0.5 k/uL (0-1.0); Monocytes % (A) 8 %; Neutrophils # (A) 4.3 k/uL (1.3-7.7); Neutrophils % (A) 68 %; RBC 3.36 m/uL (3.80-5.40); RDW 14.9 % (11.5-15.5); WBC 6.3 k/uL (3.8-10.6)
[2017-05-19 10:50] LABS: Calcium 9.8 mg/dL (8.4-10.2); Phosphorous 3.1 mg/dL (2.5-4.5); Potassium 4.7 mmol/L (3.5-5.1)
[2017-05-19 12:29] LABS: Hemoglobin A1C 7.7 % (4.2-6.1)
== END | disposition home or self-care (01) ==
LOC: LABWHC1 09:55
PROVIDERS: ATTEND Physician Assistant
DX: E10.29 Type 1 diabetes mellitus with other diabetic kidney complication (principal); Z94.0 Kidney transplant status; Z51.81 Encounter for therapeutic drug level monitoring
CPT/HCPCS: 36415; 80069; 80197; 83036; 85025

== ENCOUNTER → 2017-06-09 | Outpatient (CLI) | payer MEDICARE ==
[~2017-06-09] MED LIST changes: -SODIUM CHLORIDE 0.9% 250 ML in EMPTY BAG 1 BAG IV PRN
[2017-06-09 11:22] VITALS: BP 175/71; PULSE 55; RESP 20; TEMP 97.7
== END | disposition home or self-care (01) ==
LOC: PROCWHC3 10:36
PROVIDERS: ATTEND Physician Assistant
DX: N18.3 Chronic kidney disease, stage 3 (moderate) (principal); D50.9 Iron deficiency anemia, unspecified
CPT/HCPCS: 96365; J1756

== ENCOUNTER → 2017-08-02 | Outpatient (CLI) | payer MEDICARE ==
[2017-08-02 16:01] LABS: Iron Saturation 28.27 (12.00-45.00)
== END | disposition home or self-care (01) ==
LOC: LABWHC1 09:28
PROVIDERS: ATTEND Physician Assistant
DX: D50.9 Iron deficiency anemia, unspecified (principal); Z51.81 Encounter for therapeutic drug level monitoring; Z94.0 Kidney transplant status
CPT/HCPCS: 36415; 80197; 82728; 83540; 83550; 84466

== ENCOUNTER → 2017-09-28 | Outpatient (CLI) | payer MEDICARE ==
[2017-09-28 09:55] LABS: Anisocytosis Slight; Basophils % (A) 1 %; CH 27.5; CHCM 29.4; Eosinophils # (A) 0.2 k/uL (0-0.7); Eosinophils % (A) 4 %; HDW 2.78; Hypochromasia Marked; Luc # (Auto) 0.16; Luc % (Auto) 3; Lymphocytes # (A) 1.2 k/uL (1.0-4.8); Lymphocytes % (A) 26 %; MCH 27.9 pg (25.0-35.0); MCHC 29.4 g/dL (31.0-37.0); MCV 94.7 fL (80.0-100.0); Macrocytosis Slight; Mean Platelet Volume 7.4; Monocytes # (A) 0.5 k/uL (0-1.0); Monocytes % (A) 11 %; Neutrophils # (A) 2.5 k/uL (1.3-7.7); Neutrophils % (A) 55 %; RBC 3.59 m/uL (3.80-5.40); RDW 18.3 % (11.5-15.5); WBC 4.5 k/uL (3.8-10.6); WBC (Perox) 4.61
[2017-09-28 10:22] LABS: Calcium 9.9 mg/dL (8.4-10.2); Phosphorus 3.9 mg/dL (2.5-4.5); Potassium 4.7 mmol/L (3.5-5.1)
[2017-09-28 17:12] LABS: Iron Saturation 14.13 (12.00-45.00)
== END | disposition home or self-care (01) ==
LOC: LABWHC1 08:43
PROVIDERS: ATTEND Internal Medicine Nephrology
DX: N39.0 Urinary tract infection, site not specified (principal); M10.9 Gout, unspecified; N25.81 Secondary hyperparathyroidism of renal origin; D50.9 Iron deficiency anemia, unspecified; E55.9 Vitamin D deficiency, unspecified; N18.4 Chronic kidney disease, stage 4 (severe); D63.1 Anemia in chronic kidney disease; Z94.0 Kidney transplant status
CPT/HCPCS: 36415; 80048; 80197; 81001; 82040; 82306; 82570; 82728; 83540; 83550; 83735; 83970; 84100; 84156; 84550; 85025; 87086

== ENCOUNTER → 2017-12-27 | Outpatient (CLI) | payer MEDICARE ==
--- NOTE | 2017-12-27 12:24 | BD ---
EXAMINATION TYPE: MG DEXA axial skeleton. DATE OF EXAM: 12/27/2017 COMPARISON: NONE CLINICAL HISTORY: 67 YR OLD FEMALE: ICD-10 CODE....M81.0 SCREENING FOR OSTEOPOROSIS Height: 62.5 Weight: 215 FRAX RISK QUESTIONS: Alcohol (3 or more units per day): NO Family History (Parent hip fracture): YES, NO FX Glucocorticoids (More than 3mos): YES (Ex: prednisone, prednisolone, methylprednisolone, dexamethasone, and hydrocortisone). History of Fracture in Adulthood: YES Secondary Osteoporosis: YES 1. Type 1 Diabetes: YES 2. Hyperthyroidism: NO 3. Menopause before 45: YES 4. Malnutrition: NO 5. Chronic liver disease: NO Rheumatoid Arthritis: NO Current Tobacco Use: NO RISK FACTORS HISTORY OF: LT ANKLE AND FOOT, FINGERS...>50 YRS OLD Family History of Osteoporosis: YES, HER MOTHER, NO HIP FX Active: NO IN W/C TODAY Diet low in dairy products/other sources of calcium: NO Postmenopausal woman: YES AT 40 YRS OLD Take estrogen and/or progesterone medications: NO Lost more than 2 inches in height since high school: NOT QUITE Frequent falls: UNSTEADY Hyperparathyroidism: NO Adrenal Insufficiency: NO MEDICATIONS: Prednisone or other steroids: YES, How Long: SINCE 2004 Additional Medications: IMMUNO SUPPRESSANTS, TRANSPLANT PATIENT, BP MEDS, INSULIN PUMP, XANAX PRN, ZANTAC, LIPITOR, VIT D, Additional History: KIDNEY TRANSPLANT PATIENT, DIABETIC, EXAM MEASUREMENTS: Bone mineral densitometry was performed using the [employer] System. Bone mineral density as measured about the Lumbar spine is: ----- L1-L4(G/cm2): 1.396 T Score Values are as follows: ----- L1: 0.8 ----- L2: 2.0 ----- L3: 1.8 ----- L4: 2.4 ----- L1-L4: 1.8 Bone mineral density FIRST BONE DENSITY SCAN AT [facility] Bone mineral density about the R hip (g/cm2): 1.024 Bone mineral density about the L hip (g/cm2): 1.053 T Score values are as follows: -----R Neck: -1.0 -----L Neck: -0.4 -----R Total: 0.1 -----L Total: 0.4 Bone mineral density FIRST SCAN AT [facility] FRAX%S: THERE IS A 19.7% CHANCE OF A MAJOR OSTEOPOROTIC FX AND A 1.9% FOR HIP FX......PROBABILITY OF FX IN 10 YRS TIME IMPRESSION: Normal (Values between +1 and -1 indicate normal bone mass). Right femur is borderline for osteopenia . Consider repeating this study in 5 years or sooner if there is some new clinical indication. NOTE: T-SCORE=SD OF THE YOUNG ADULT MEAN.
--- NOTE | 2017-12-29 10:57 | MM ---
Reason for exam: screening (asymptomatic). Last mammogram was performed 4 years and 1 month ago. History: Patient is postmenopausal. Family history of breast cancer in mother, breast cancer in sister, breast cancer in cousin, and breast cancer in grandmother. Physical Findings: A clinical breast exam by your physician is recommended on an annual basis and results should be correlated with mammographic findings. MG 3D Screening Mammo W/Cad Bilateral CC and MLO view(s) were taken. XCCL view(s) were taken of the right breast. Prior study comparison: November 15, 2013, mammogram, performed at [place]. June 18, 2011, mammogram, performed at [place]. The breast tissue is heterogeneously dense. This may lower the sensitivity of mammography. No significant changes when compared with prior studies. ASSESSMENT: Negative, BI-RAD 1 RECOMMENDATION: Routine screening mammogram of both breasts in 1 year.
== END | disposition home or self-care (01) ==
LOC: RADMAMWWP 11:02
PROVIDERS: ATTEND Internal Medicine Geriatric Medicine
DX: Z12.31 Encounter for screening mammogram for malignant neoplasm of breast (principal); M85.851 Other specified disorders of bone density and structure, right thigh
CPT/HCPCS: 77063; 77067; 77080

== ENCOUNTER → 2017-12-28 | Outpatient (CLI) | payer MEDICARE ==
--- NOTE | 2017-12-28 21:00 | CT ---
EXAMINATION TYPE: CT lumbar spine wo con DATE OF EXAM: 12/28/2017 8:03 PM COMPARISON: NONE HISTORY: LOWER BACK PAIN CT DLP: 994 mGycm Automated exposure control for dose reduction was used. Unenhanced CT of the lumbar spine was performed. Bone and soft tissue window settings are submitted as well as coronal and sagittal reconstructions. Lumbar vertebra have fairly normal alignment. There is narrowing at L3-4 L4-5 with vacuum disc. There is calcification in the L1-2 disc. There is no compression fracture. The posterior elements are inta ct. There is a broad-based posterior disc herniation at L3-4 posteriorly and laterally towards the ri ght side. There is impingement on the neural foramen. There is moderate spinal stenosis. There is facet arthropathy and ligamentum flavum thickening at L4-5 with lateral recess stenosis. The re is a posterior concentric disc bulge at L4-5. The sacroiliac joints appear normal. There is no par aspinal mass. Abdominal aorta is atheromatous. There is moderate renal cortical atrophy. IMPRESSION: At L3-4 there is combined disc herniation and facet arthropathy with moderately severe spinal stenosi s. There is also lateral disc herniation on the right side at L3-4 and impingement on the neural fora men. There is lateral recess stenosis at L4-5.
--- NOTE | 2017-12-28 21:32 | MR ---
EXAMINATION TYPE: MR lumbar spine wo con DATE OF EXAM: 12/28/2017 COMPARISON: NONE HISTORY: Chronic Low Back pain, CT on PACS CONTRAST: 0 mL intravenous Gadavist. TECHNIQUE: Multiplanar, multisequence images of the lumbar spine were acquired. FINDINGS: L5-S1: Minimal disc bulge is present. This has anterior thecal sac contact. No spinal canal stenosis present. Neural foramen are patent. L4-L5: Broad-based disc bulge is present with anterior thecal sac flattening. There is loss of disc h eight through this level. Facet hypertrophy is present. Congenitally short pedicles are present. Ther e is an AP spinal canal stenosis with an AP diameter of 1.0 cm. Disc extension is beyond the L5 endpl ate. There is severe left foraminal stenosis and moderate right foraminal stenosis. This may have dis c material with contact with the exiting L5 nerve root. L3-L4: Broad-based disc bulge is present with moderate anterior thecal sac compression. Congenitally short pedicles are present. AP spinal canal narrowing is present at 1.1 cm. Subligamentous disc exten angie is evident posterior to L3. There is severe right and moderate left foraminal narrowing. Schmorl 's node is evident on the superior endplate of L3. L2-L3: No significant disc bulge or disc herniation. No spinal canal stenosis. No foraminal stenosi s. Facets are normal.. L1-L2: There is loss of disc disc hydration. No disc bulge is evident. No spinal canal stenosis or ne ural foraminal stenosis is present. T12-L1: No significant disc bulge or disc herniation. No spinal canal stenosis. No foraminal stenos is. . IMPRESSION: 1. Spinal canal stenosis L4-5 secondary to disc bulging. Disc bulge is contributing to spinal canal n arrowing at L3-4. 2. Subligamentous disc herniation L3-4 L4-5.
== END | disposition home or self-care (01) ==
LOC: RADCTMAIN 12-16 13:03
PROVIDERS: ATTEND Orthopaedic Surgery Orthopaedic Surgery of the Spine
DX: M48.061 Spinal stenosis, lumbar region without neurogenic claudication (principal); M99.73 Connective tissue and disc stenosis of intervertebral foramina of lumbar region; M51.26 Other intervertebral disc displacement, lumbar region; M46.86 Other specified inflammatory spondylopathies, lumbar region; G89.29 Other chronic pain
CPT/HCPCS: 72131; 72148

== ENCOUNTER → 2018-02-21 | Outpatient (CLI) | payer MEDICARE ==
[2018-02-21 09:35] LABS: Bilirubin, Delta 0.5 mg/dL (0.0-0.2); Total Bilirubin 0.5 mg/dL (0.2-1.3); Total Protein 6.4 g/dL (6.3-8.2)
== END | disposition home or self-care (01) ==
LOC: LABWHC1 07:58
PROVIDERS: ATTEND Internal Medicine Cardiovascular Disease
DX: E78.5 Hyperlipidemia, unspecified (principal); I25.10 Atherosclerotic heart disease of native coronary artery without angina pectoris; Z94.0 Kidney transplant status
CPT/HCPCS: 36415; 80061; 80076

== ENCOUNTER → 2018-03-15 | Outpatient (CLI) | payer MEDICARE ==
[2018-03-15 16:36] LABS: Iron Saturation 18.83 (12.00-45.00)
== END ==
LOC: LABWHC1 08:26
PROVIDERS: ATTEND Internal Medicine Nephrology
DX: D64.9 Anemia, unspecified (principal)
CPT/HCPCS: 36415; 82728; 83540; 83550

== ENCOUNTER 2018-03-17 17:00 | Emergency (ER) | payer MEDICARE ==
[2018-03-17 17:17] VITALS: RESP 20
--- NOTE | 2018-03-17 17:53 | ED ---
General Adult HPI - General Chief complaint: Shortness of Breath Stated complaint: Ankle swelling and GÓMEZ Time Seen by Provider: 03/17/18 17:27 Source: patient, RN notes reviewed, old records reviewed Mode of arrival: ambulatory Limitations: no limitations - History of Present Illness Initial comments: 67 -year-old male presenting with dyspnea, lower extremity swelling. Patient has history of chronic kidney disease status post renal transplant. She is currently on CellCept, Prograf, and prednisone. She also has history of congestive heart failure and hypertension. She states that she has gained 15 pounds over the past one week. She has been taking Lasix 40 mg daily with no improvement in her symptoms. She does also reported decrease in urine output. Her dyspnea is primarily exertional and when lying flat. No fever or cough. No abdominal pain nausea vomiting. She denies any chest pain. - Related Data Home Medications Medication Instructions Recorded Confirmed Ascorbic Acid [Vitamin C] 500 mg PO DAILY 04/09/15 03/17/18 Aspirin EC [Ecotrin Low Dose] 81 mg PO DAILY 04/09/15 03/17/18 Atenolol [Tenormin] 100 mg PO DAILY 04/09/15 03/17/18 Tacrolimus [Prograf] 3 mg PO QAM 04/09/15 03/17/18 predniSONE 5 mg PO DAILY 04/09/15 03/17/18 HYDROcodone/APAP 5-325MG [[place] 1 tab PO Q6H PRN 03/04/16 03/17/18 5-325] Multivit-Min/Iron/Folic/Lutein 1 tab PO DAILY 03/04/16 03/17/18 [Centrum Silver Women Tablet] Nitroglycerin Sl Tabs [Nitrostat] 0.4 mg SUBLINGUAL Q5M PRN 03/04/16 03/17/18 Vitamin B Complex 1 cap PO DAILY 03/04/16 03/17/18 Albuterol Inhaler [Ventolin Hfa 2 puff INHALATION RT-Q4H PRN 09/16/16 03/17/18 Inhaler] Glucagon Emergency Kit 1 mg IM DIRECTED PRN 09/16/16 03/17/18 INSULIN LISPRO (For Pump) [humaLOG 0.01 units SQ-PUMP CONTINUOUS PRN 11/26/16 (For Pump)] rOPINIRole HCL [Requip] 1 mg PO BID PRN 12/17/16 03/17/18 Atorvastatin [Lipitor] 40 mg PO WETHFRSA 06/09/17 03/17/18 Biotin 5,000 mcg PO DAILY 06/09/17 03/17/18 Ferrous Sulfate [Feosol] 325 mg PO BID 06/09/17 03/17/18 Losartan [Cozaar] 50 mg PO DAILY 06/09/17 03/17/18 Mycophenolate Mofetil [Cellcept] 750 mg PO BID 06/09/17 03/17/18 Ranitidine HCl [Zantac] 150 mg PO DAILY 06/09/17 03/17/18 Ubidecarenone [Coenzyme Q10] 100 mg PO DAILY 06/09/17 03/17/18 hydrALAZINE HCL [Apresoline] 200 mg PO DAILY 06/09/17 03/17/18 Epoetin Naveed [Procrit] 20,000 unit SQ WEEKLY 10/05/17 03/17/18 Furosemide [Lasix] 40 mg PO BID PRN 10/05/17 03/17/18 Aloe 225 1 cap PO DAILY 03/17/18 03/17/18 Ergocalciferol (Vitamin D2) 50,000 unit PO FR 03/17/18 03/17/18 [Vitamin D2] Tacrolimus [Prograf] 0.5 mg PO HS 03/17/18 03/17/18 Tacrolimus [Prograf] 2 mg PO HS 03/17/18 03/17/18 amLODIPine [Norvasc] 10 mg PO DAILY 03/17/18 03/17/18 Previous Rx's Medication Instructions Recorded ALPRAZolam [Xanax] 0.25 mg PO TID PRN #20 tab 12/17/16 Furosemide [Lasix] 60 mg PO BID #90 tablet 03/17/18 Allergies Allergy/AdvReac Type Severity Reaction Status Date / Time Sulfa (Sulfonamide Allergy Rash/Hives Verified 03/17/18 18:00 Antibiotics) vancomycin Allergy Rash/Hives Verified 03/17/18 18:00 venom-honey bee Allergy Swelling Verified 03/17/18 18:00 [bee venom (honey bee)] metoprolol tartrate AdvReac Confusion Verified 03/17/18 18:00 [From Lopressor] Review of Systems ROS Statement: Those systems with pertinent positive or pertinent negative responses have been documented in the HPI. ROS Other: All systems not noted in ROS Statement are negative. Past Medical History Past Medical History: Coronary Artery Disease (CAD), Diabetes Mellitus, GERD/ Reflux, Hyperlipidemia, Hypertension, Renal Disease Additional Past Medical History / Comment(s): Chronic renal disease stage III with previous renal transplant, chronic anemia, IDDM with insulin pump, gluten free diet, neuropathy. Stenosis, DDD of back History of Any Multi-Drug Resistant Organisms: None Reported Past Surgical History: Section, Heart Catheterization, Heart Catheterization With Stent, Orthopedic Surgery Additional Past Surgical History / Comment(s): [facility] , bilateral cataracts, retinal peeling in left eye, L achilles tendon repair , L upper arm dialysis fistula, 2 cardiac stents, 2 c/s Past Anesthesia/Blood Transfusion Reactions: Motion Sickness, Postoperative Nausea & Vomiting (PONV) Additional Past Anesthesia/Blood Transfusion Reaction / Comment(s): PONV after C /S Date of Last Stent Placement:: approx 2012 Past Psychological History: No Psychological Hx Reported Smoking Status: Never smoker Past Alcohol Use History: Occasional Past Drug Use History: None Reported - Past Family History Father Family Medical History: Myocardial Infarction (PR) Additional Family Medical History / Comment(s): Father at age 70 from myocardial infarction Mother Family Medical History: Cancer Additional Family Medical History / Comment(s): Mother at age 86 from pneumonia. Sister(s) Family Medical History: Cancer Additional Family Medical History / Comment(s): . General Exam Limitations: no limitations General appearance: alert, in no apparent distress Head exam: Present: atraumatic, normocephalic Eye exam: Present: normal appearance, PERRL Neck exam: Present: normal inspection. Absent: tenderness, meningismus Respiratory exam: Present: rales (Bilateral rales at the lung bases). Absent: respiratory distress Cardiovascular Exam: Present: regular rate, normal rhythm GI/Abdominal exam: Present: soft. Absent: distended, tenderness Extremities exam: Present: normal capillary refill, pedal edema (2+ pitting edema) Neurological exam: Present: alert, oriented X3, CN II-XII intact. Absent: motor sensory deficit Psychiatric exam: Present: normal affect, normal mood Skin exam: Present: warm, dry, intact. Absent: cyanosis, diaphoretic Course Vital Signs 03/17/18 03/17/18 17:15 18:24 Temperature 98.1 F Pulse Rate 57 L Respiratory 20 20 Rate Blood Pressure 139/58 O2 Sat by Pulse 96 Oximetry EKG Findings - EKG Comments: EKG Findings:: EKG sinus bradycardia, left axis deviation, rate of 55 PA interval 162 QRS duration 102, QTC 453 Medical Decision Making - Medical Decision Making 67-year-old female presenting with dyspnea and lower extremity swelling. Patient has history of renal transplant. Symptoms have been progressive over the past one week. Chest x-ray shows bilateral pulmonary edema and small bilateral effusions consistent with fluid overload. White count is normal, hemoglobin stable at 9.5. Potassium mildly elevated at 5.4 creatinine is 2.4 which is increased from baseline of 2.0. BNP elevated at 5000. Patient is given 40 mg of IV Lasix. She does take 40 mg daily as needed at home. I would prefer the patient stay for IV diuresis, patient is insistent that she go home. She is very reliable, does know herself quite well. She will take daily weights and monitor urine output. She will have strict fluid intake of 45 ounces daily. Case discussed with Dr. Johnson who knows patient and recommends 60 Lasix twice a day until she returns to her normal weight. Patient is comfortable with this plan and will return with worsening or changing symptoms. Patient will be given a prescription for repeat laboratory studies in 4 days. Her mds manager will follow-up on these results. - Lab Data Result diagrams: 03/17/18 18:06 03/17/18 18:06 Lab Results 03/17/18 03/17/18 03/17/18 Range/Units 18:06 18:06 18:06 WBC 5.0 (3.8-10.6) k/uL RBC 3.32 L (3.80-5.40) m/uL Hgb 9.5 L (11.4-16.0) gm/dL Hct 31.2 L (34.0-46.0) % MCV 94.0 (80.0-100.0) fL MCH 28.7 (25.0-35.0) pg MCHC 30.5 L (31.0-37.0) g/dL RDW 15.5 (11.5-15.5) % Plt Count 286 (150-450) k/uL Neutrophils % 57 % Lymphocytes % 21 % Monocytes % 11 % Eosinophils % 7 % Basophils % 1 % Neutrophils # 2.8 (1.3-7.7) k/uL Lymphocytes # 1.1 (1.0-4.8) k/uL Monocytes # 0.5 (0-1.0) k/uL Eosinophils # 0.3 (0-0.7) k/uL Basophils # 0.0 (0-0.2) k/uL Hypochromasia Moderate PT (9.0-12.0) sec INR (<1.2) APTT (22.0-30.0) sec Sodium 138 (137-145) mmol/L Potassium 5.4 H (3.5-5.1) mmol/L Chloride 103 (98-107) mmol/L Carbon Dioxide 20 L (22-30) mmol/L Anion Gap 15 mmol/L BUN 66 H (7-17) mg/dL Creatinine 2.43 H (0.52-1.04) mg/dL Est GFR (CKD-EPI)AfAm 23 (>60 ml/min/1.73 sqM) Est GFR (CKD-EPI)NonAf 20 (>60 ml/min/1.73 sqM) Glucose 104 H (74-99) mg/dL Calcium 9.7 (8.4-10.2) mg/dL Magnesium 2.3 (1.6-2.3) mg/dL Total Bilirubin 0.3 (0.2-1.3) mg/dL AST 31 (14-36) U/L ALT 37 (9-52) U/L Alkaline Phosphatase 59 (38-126) U/L Total Creatine Kinase 93 (30-135) U/L CK-MB (CK-2) 2.2 (0.0-2.4) ng/mL CK-MB (CK-2) Rel Index 2.4 Troponin I <0.012 (0.000-0.034) ng/mL NT-Pro-B Natriuret Pep pg/mL Total Protein 6.2 L (6.3-8.2) g/dL Albumin 3.9 (3.5-5.0) g/dL 03/17/18 03/17/18 Range/Units 18:06 18:06 WBC (3.8-10.6) k/uL RBC (3.80-5.40) m/uL Hgb (11.4-16.0) gm/dL Hct (34.0-46.0) % MCV (80.0-100.0) fL MCH (25.0-35.0) pg MCHC (31.0-37.0) g/dL RDW (11.5-15.5) % Plt Count (150-450) k/uL Neutrophils % % Lymphocytes % % Monocytes % % Eosinophils % % Basophils % % Neutrophils # (1.3-7.7) k/uL Lymphocytes # (1.0-4.8) k/uL Monocytes # (0-1.0) k/uL Eosinophils # (0-0.7) k/uL Basophils # (0-0.2) k/uL Hypochromasia PT 10.0 (9.0-12.0) sec INR 1.0 (<1.2) APTT 21.4 L (22.0-30.0) sec Sodium (137-145) mmol/L Potassium (3.5-5.1) mmol/L Chloride (98-107) mmol/L Carbon Dioxide (22-30) mmol/L Anion Gap mmol/L BUN (7-17) mg/dL Creatinine (0.52-1.04) mg/dL Est GFR (CKD-EPI)AfAm (>60 ml/min/1.73 sqM) Est GFR (CKD-EPI)NonAf (>60 ml/min/1.73 sqM) Glucose (74-99) mg/dL Calcium (8.4-10.2) mg/dL Magnesium (1.6-2.3) mg/dL Total Bilirubin (0.2-1.3) mg/dL AST (14-36) U/L ALT (9-52) U/L Alkaline Phosphatase (38-126) U/L Total Creatine Kinase (30-135) U/L CK-MB (CK-2) (0.0-2.4) ng/mL CK-MB (CK-2) Rel Index Troponin I (0.000-0.034) ng/mL NT-Pro-B Natriuret Pep 5010 pg/mL Total Protein (6.3-8.2) g/dL Albumin (3.5-5.0) g/dL Disposition Clinical Impression: Congestive heart failure, Renal insufficiency Disposition: HOME SELF-CARE Condition: Fair Instructions: Heart Failure (ED), Pulmonary Edema (ED) Prescriptions: Furosemide [Lasix] 60 mg PO BID #90 tablet Is patient prescribed a controlled substance at d/c from ED?: No Referrals: Refugio Cordova MD [Primary Care Provider] - 1-2 days Dori Hussein MD [STAFF PHYSICIAN] - 1-2 days Time of Disposition: 19:26
[2018-03-17 18:18] LABS: Basophils % (A) 1 %; Eosinophils # (A) 0.3 k/uL (0-0.7); Eosinophils % (A) 7 %; HCT 31.2 % (34.0-46.0); HGB 9.5 gm/dL (11.4-16.0); Hypochromasia Moderate; Lymphocytes # (A) 1.1 k/uL (1.0-4.8); Lymphocytes % (A) 21 %; MCH 28.7 pg (25.0-35.0); MCHC 30.5 g/dL (31.0-37.0); Mean Platelet Volume 7.1; Monocytes # (A) 0.5 k/uL (0-1.0); Monocytes % (A) 11 %; Neutrophils # (A) 2.8 k/uL (1.3-7.7); Neutrophils % (A) 57 %; Platelet Count 286 k/uL (150-450); RBC 3.32 m/uL (3.80-5.40); RDW 15.5 % (11.5-15.5)
[2018-03-17 18:34] LABS: Albumin 3.9 g/dL (3.5-5.0); Calcium 9.7 mg/dL (8.4-10.2); Magnesium 2.3 mg/dL (1.6-2.3); Partial Thromboplastin Time 21.4 sec (22.0-30.0); Potassium 5.4 mmol/L (3.5-5.1); Total Bilirubin 0.3 mg/dL (0.2-1.3); Total Protein 6.2 g/dL (6.3-8.2)
[2018-03-17 18:39] LABS: Creatine Kinase 93 U/L (30-135)
[2018-03-17] MEDS ORDERED: FUROSEMIDE 10 MG/ML 4 ML VIAL IV STA (18:45)
[2018-03-17 18:51] LABS: Creatine Kinase MB 2.2 ng/mL (0.0-2.4); Troponin I <0.012 ng/mL (0.000-0.034)
--- NOTE | 2018-03-17 18:53 | XR ---
EXAMINATION: XR chest 2V DATE AND TIME: 03/17/2018 6:34 PM ORDERING PROVIDER: Poli Richardson MD CLINICAL INDICATION: difficulty breathing TECHNIQUE: PA and lateral COMPARISON: 12/17/2016 DESCRIPTION: The overlying soft tissues are prominent. There is mild/moderate silhouetting of the pulmonary vasculature by a fine reticular pattern of incre ased density with small bilateral pleural effusions and with partial bibasilar comparisons. These fin dings are consistent with interstitial pulmonary edema with bilateral small pleural effusions, presum ably degenerative in etiology with mild cardiac silhouette enlargement. No abnormal gas collections. Skeletal structures are unremarkable. IMPRESSION: INTERSTITIAL PULMONARY EDEMA WITH BILATERAL SMALL PLEURAL EFFUSIONS.
[2018-03-17 19:55] VITALS: BP 137/70; PULSE 82; TEMP 98
== END 2018-03-17 19:45 | disposition home or self-care (01) ==
LOC: EC 17:00
DX: I50.1 Left ventricular failure, unspecified (principal); E87.5 Hyperkalemia; R79.89 Other specified abnormal findings of blood chemistry; N18.3 Chronic kidney disease, stage 3 (moderate); I13.0 Hypertensive heart and chronic kidney disease with heart failure and stage 1 through stage 4 chronic kidney disease, or unspecified chronic kidney disease; E78.5 Hyperlipidemia, unspecified; I25.10 Atherosclerotic heart disease of native coronary artery without angina pectoris; E11.22 Type 2 diabetes mellitus with diabetic chronic kidney disease; E11.40 Type 2 diabetes mellitus with diabetic neuropathy, unspecified; D64.9 Anemia, unspecified; K21.9 Gastro-esophageal reflux disease without esophagitis; Z79.4 Long term (current) use of insulin; Z79.52 Long term (current) use of systemic steroids; Z79.82 Long term (current) use of aspirin; Z79.899 Other long term (current) drug therapy; Z88.1 Allergy status to other antibiotic agents; Z88.2 Allergy status to sulfonamides; Z88.8 Allergy status to other drugs, medicaments and biological substances; Z91.030 Bee allergy status; Z87.39 Personal history of other diseases of the musculoskeletal system and connective tissue; Z95.5 Presence of coronary angioplasty implant and graft; Z99.2 Dependence on renal dialysis; Z94.0 Kidney transplant status; Z83.6 Family history of other diseases of the respiratory system; Z82.49 Family history of ischemic heart disease and other diseases of the circulatory system
CPT/HCPCS: 36415; 93005; 83880; 80053; 82550; 82553; 83735; 84484; 85025; 85610; 85730; 71046; 99285; 96374; J1940

== ENCOUNTER → 2018-03-21 | Outpatient (CLI) | payer MEDICARE ==
[2018-03-21 10:00] LABS: HCT 32.6 % (34.0-46.0); Hypochromasia Slight; MCH 28.7 pg (25.0-35.0); MCHC 30.7 g/dL (31.0-37.0); MCV 93.7 fL (80.0-100.0); Mean Platelet Volume 7.3; Platelet Count 293 k/uL (150-450); RBC 3.48 m/uL (3.80-5.40)
[2018-03-21 10:14] LABS: Calcium 10.1 mg/dL (8.4-10.2); Potassium 4.4 mmol/L (3.5-5.1)
== END | disposition home or self-care (01) ==
LOC: LABWHC1 09:38
PROVIDERS: ATTEND Emergency Medicine
DX: I50.9 Heart failure, unspecified (principal); N28.9 Disorder of kidney and ureter, unspecified
CPT/HCPCS: 36415; 80048; 85027

== ENCOUNTER → 2018-04-01 | Outpatient (CLI) | payer MEDICARE ==
[2018-04-01 10:45] LABS: Calcium 10.1 mg/dL (8.4-10.2); Potassium 4.8 mmol/L (3.5-5.1)
== END | disposition home or self-care (01) ==
LOC: LABWHC1 10:09
PROVIDERS: ATTEND Nurse Practitioner Family
DX: N18.4 Chronic kidney disease, stage 4 (severe) (principal)
CPT/HCPCS: 36415; 80048

== ENCOUNTER → 2018-05-30 | Outpatient (CLI) | payer MEDICARE ==
[2018-05-30 11:36] LABS: Albumin 3.9 g/dL (3.5-5.0); Magnesium 1.7 mg/dL (1.6-2.3); Phosphorus 3.5 mg/dL (2.5-4.5); Potassium 4.9 mmol/L (3.5-5.1); Uric Acid 10.9 mg/dL (3.7-7.4)
[2018-05-30 17:00] LABS: Iron Saturation 34.09 (12.00-45.00); Vitamin D 25 Hydroxy 44.9 ng/mL (30.0-100.0)
[2018-05-30 17:22] LABS: Parathyroid Hormone Intact 125.5 pg/mL (14.0-72.0)
== END | disposition home or self-care (01) ==
LOC: LABWHC1 10:20
PROVIDERS: ATTEND Internal Medicine
DX: D50.9 Iron deficiency anemia, unspecified (principal); N18.4 Chronic kidney disease, stage 4 (severe); D63.1 Anemia in chronic kidney disease; N25.81 Secondary hyperparathyroidism of renal origin; E55.9 Vitamin D deficiency, unspecified; M10.9 Gout, unspecified; N39.0 Urinary tract infection, site not specified; Z94.0 Kidney transplant status; Z92.25 Personal history of immunosuppression therapy
CPT/HCPCS: 36415; 80048; 82040; 82306; 82533; 82728; 83540; 83550; 83735; 83970; 84100; 84550

== ENCOUNTER → 2018-06-07 | Outpatient (CLI) | payer MEDICARE ==
[2018-06-07 17:37] LABS: Iron Saturation 42.21 (12.00-45.00)
== END | disposition home or self-care (01) ==
LOC: LABWHC1 11:04
PROVIDERS: ATTEND Nurse Practitioner Family
DX: D50.9 Iron deficiency anemia, unspecified (principal)
CPT/HCPCS: 36415; 82728; 83540; 83550

== ENCOUNTER → 2018-09-09 | Outpatient (CLI) | payer MEDICARE ==
[2018-09-09 19:19] LABS: Iron Saturation 15.27 (12.00-45.00)
[2018-09-09 19:21] LABS: Phosphorus 3.3 mg/dL (2.4-5.1); Uric Acid 9.5 mg/dL (2.9-7.7)
[2018-09-09 19:27] LABS: Vitamin D 25 Hydroxy 26.8 ng/mL (30.0-100.0)
[2018-09-09 19:47] LABS: Parathyroid Hormone Intact 76.5 pg/mL (14.0-72.0)
== END | disposition home or self-care (01) ==
LOC: LABWHC1 11:13
PROVIDERS: ATTEND Nurse Practitioner Family
DX: N39.0 Urinary tract infection, site not specified (principal); D50.9 Iron deficiency anemia, unspecified; N18.4 Chronic kidney disease, stage 4 (severe); E55.9 Vitamin D deficiency, unspecified; E21.3 Hyperparathyroidism, unspecified; M10.9 Gout, unspecified; Z94.0 Kidney transplant status
CPT/HCPCS: 36415; 82306; 82728; 83540; 83550; 83735; 83970; 84100; 84550

== ENCOUNTER 2018-10-19 17:06 | Inpatient (IN) | payer MEDICARE ==
--- NOTE | 2018-10-19 18:25 | ED ---
General Adult HPI - General Chief complaint: Shortness of Breath Stated complaint: SOB Time Seen by Provider: 10/19/18 17:54 Source: patient, RN notes reviewed Mode of arrival: ambulatory Limitations: no limitations - History of Present Illness Initial comments: Patient is a pleasant 68-year-old female presenting to the emergency department with difficulty breathing. Symptoms started a couple of days ago. Symptoms are exertional. No significant symptoms at rest. Patient does have some leg swelling. Patient has gained approximately 10 pounds in the past week. No chest pain. No fever. Patient does have history of similar symptoms several times previously associated with CHF. - Related Data Home Medications Medication Instructions Recorded Confirmed Ascorbic Acid [Vitamin C] 500 mg PO DAILY 04/09/15 10/19/18 Aspirin EC [Ecotrin Low Dose] 81 mg PO DAILY 04/09/15 10/19/18 Tacrolimus [Prograf] 3 mg PO QAM 04/09/15 10/19/18 predniSONE 5 mg PO DAILY 04/09/15 10/19/18 Multivit-Min/Iron/Folic/Lutein 1 tab PO DAILY 03/04/16 10/19/18 [Centrum Silver Women Tablet] Nitroglycerin Sl Tabs [Nitrostat] 0.4 mg SUBLINGUAL Q5M PRN 03/04/16 10/19/18 Vitamin B Complex 1 cap PO DAILY 03/04/16 10/19/18 Albuterol Inhaler [Ventolin Hfa 2 puff INHALATION RT-Q4H PRN 09/16/16 10/19/18 Inhaler] Glucagon Emergency Kit 1 mg IM DIRECTED PRN 09/16/16 10/19/18 INSULIN LISPRO (For Pump) [humaLOG 0.01 units SQ-PUMP CONTINUOUS PRN 11/26/16 (For Pump)] Biotin 5,000 mcg PO DAILY 06/09/17 10/19/18 Ranitidine HCl [Zantac] 150 mg PO DAILY 06/09/17 10/19/18 Ubidecarenone [Coenzyme Q10] 100 mg PO DAILY 06/09/17 10/19/18 Aloe 225 1 cap PO DAILY 03/17/18 10/19/18 Tacrolimus [Prograf] 2 mg PO BID 03/17/18 10/19/18 amLODIPine [Norvasc] 10 mg PO DAILY 03/17/18 10/19/18 Acetaminophen [Tylenol] 500 mg PO Q8H PRN 10/19/18 10/19/18 Atorvastatin [Lipitor] 40 mg PO DAILY 10/19/18 10/19/18 Bisacodyl [Dulcolax] 10 mg PO DAILY PRN 10/19/18 10/19/18 Carvedilol [Coreg] 12.5 mg PO BID 10/19/18 10/19/18 Darbepoetin Naveed [Aranesp] 25 mcg SQ Q7D 10/19/18 10/19/18 Docusate [Colace] 100 mg PO BID PRN 10/19/18 10/19/18 Ferrous Sulfate [Feosol] 325 mg PO DAILY 10/19/18 10/19/18 Furosemide [Lasix] 40 mg PO DAILY 10/19/18 10/19/18 Lidocaine 5% Patch [Lidoderm 5% 1 patch TRANSDERM DAILY 10/19/18 10/19/18 Patch] Magnesium Oxide [Mag-Ox] 250 mg PO Q48H 10/19/18 10/19/18 Mycophenolate Mofetil [Cellcept] 750 mg PO BID 10/19/18 10/19/18 Ondansetron [Zofran ODT] 8 mg SL Q8HR PRN 10/19/18 10/19/18 Phenyleph/Pramoxin/Glycr/W.pet 1 dose RECTAL BID PRN 10/19/18 10/19/18 [Preparation H Cream] hydrALAZINE HCL [Apresoline] 100 mg PO TID 10/19/18 10/19/18 Allergies Allergy/AdvReac Type Severity Reaction Status Date / Time Sulfa (Sulfonamide Allergy Rash/Hives Verified 10/19/18 18:31 Antibiotics) vancomycin Allergy Rash/Hives Verified 10/19/18 18:31 venom-honey bee Allergy Swelling Verified 10/19/18 18:31 [bee venom (honey bee)] metoprolol tartrate AdvReac Confusion Verified 10/19/18 18:31 [From Lopressor] Review of Systems ROS Statement: Those systems with pertinent positive or pertinent negative responses have been documented in the HPI. ROS Other: All systems not noted in ROS Statement are negative. Constitutional: Denies: fever Eyes: Denies: eye pain ENT: Denies: ear pain Respiratory: Reports: dyspnea. Denies: cough Cardiovascular: Denies: chest pain Endocrine: Reports: fatigue Gastrointestinal: Denies: abdominal pain Genitourinary: Denies: dysuria Musculoskeletal: Denies: back pain Skin: Denies: rash Neurological: Denies: weakness Past Medical History Past Medical History: Coronary Artery Disease (CAD), Diabetes Mellitus, GERD/ Reflux, Hyperlipidemia, Hypertension, Renal Disease Additional Past Medical History / Comment(s): Chronic renal disease stage III with previous renal transplant, chronic anemia, IDDM with insulin pump, gluten free diet, neuropathy. Stenosis, DDD of back, States abnormal stress test. Patient was scheduled to have back surgery at [facility]. History of Any Multi-Drug Resistant Organisms: None Reported Past Surgical History: Section, Heart Catheterization, Heart Catheterization With Stent, Orthopedic Surgery Additional Past Surgical History / Comment(s): 2005 Kidney transplant at [facility] , bilateral cataracts, retinal peeling in left eye, L achilles tendon repair , L upper arm dialysis fistula, has a total of 4cardiac stents, 2 c/s. Past Anesthesia/Blood Transfusion Reactions: Motion Sickness, Postoperative Nausea & Vomiting (PONV) Additional Past Anesthesia/Blood Transfusion Reaction / Comment(s): PONV after C /S Date of Last Stent Placement:: 2016. Past Psychological History: No Psychological Hx Reported Smoking Status: Never smoker - Past Family History Father Family Medical History: Myocardial Infarction (ID) Additional Family Medical History / Comment(s): Father at age 70 from myocardial infarction Mother Family Medical History: Cancer Additional Family Medical History / Comment(s): Mother at age 86 from pneumonia. Sister(s) Family Medical History: Cancer Additional Family Medical History / Comment(s): . General Exam Limitations: no limitations General appearance: alert, in no apparent distress Head exam: Present: atraumatic Eye exam: Present: normal appearance, PERRL ENT exam: Present: normal oropharynx Neck exam: Present: normal inspection Respiratory exam: Present: decreased breath sounds Cardiovascular Exam: Present: regular rate, normal rhythm GI/Abdominal exam: Present: soft. Absent: tenderness Extremities exam: Present: pedal edema. Absent: calf tenderness Neurological exam: Present: alert Psychiatric exam: Present: normal affect, normal mood Skin exam: Present: normal color Course Vital Signs 10/19/18 10/19/18 10/19/18 17:27 18:00 18:13 Temperature 98.1 F Pulse Rate 78 74 Respiratory 28 H 24 24 Rate Blood Pressure 131/68 158/57 O2 Sat by Pulse 87 L 95 Oximetry 10/19/18 19:00 Temperature Pulse Rate 74 Respiratory 20 Rate Blood Pressure 158/57 O2 Sat by Pulse 97 Oximetry EKG Findings - EKG Comments: EKG Findings:: Normal sinus rhythm 73. [place] 178. QRS 114. QT 432. QTC 475. Left axis. Poor R-wave progression. No acute ST change. Medical Decision Making - Medical Decision Making Patient reevaluated and unchanged. Patient and family updated on results and plan. Case was discussed in detail with Dr. Tyler, covering for Dr. Cordova, who will admit. She does request consults with cardiology and nephrology as well as echo. - Lab Data Result diagrams: 10/19/18 18:10 10/19/18 18:10 Lab Results 10/19/18 10/19/18 10/19/18 Range/Units 18:10 18:10 18:10 WBC 6.8 (3.8-10.6) k/uL RBC 3.18 L (3.80-5.40) m/uL Hgb 9.2 L (11.4-16.0) gm/dL Hct 30.2 L (34.0-46.0) % MCV 94.9 (80.0-100.0) fL MCH 29.0 (25.0-35.0) pg MCHC 30.5 L (31.0-37.0) g/dL RDW 16.6 H (11.5-15.5) % Plt Count 264 (150-450) k/uL Neutrophils % 80 % Lymphocytes % 8 % Monocytes % 8 % Eosinophils % 1 % Basophils % 0 % Neutrophils # 5.5 (1.3-7.7) k/uL Lymphocytes # 0.5 L (1.0-4.8) k/uL Monocytes # 0.6 (0-1.0) k/uL Eosinophils # 0.1 (0-0.7) k/uL Basophils # 0.0 (0-0.2) k/uL Hypochromasia Moderate Anisocytosis Slight PT (9.0-12.0) sec INR (<1.2) APTT (22.0-30.0) sec Sodium 137 (137-145) mmol/L Potassium 5.1 (3.5-5.1) mmol/L Chloride 107 (98-107) mmol/L Carbon Dioxide 20 L (22-30) mmol/L Anion Gap 10 mmol/L BUN 58 H (7-17) mg/dL Creatinine 2.03 H (0.52-1.04) mg/dL Est GFR (CKD-EPI)AfAm 28 (>60 ml/min/1.73 sqM) Est GFR (CKD-EPI)NonAf 25 (>60 ml/min/1.73 sqM) Glucose 230 H (74-99) mg/dL Calcium 9.8 (8.4-10.2) mg/dL Total Bilirubin 0.5 (0.2-1.3) mg/dL AST 28 (14-36) U/L ALT 26 (9-52) U/L Alkaline Phosphatase 60 (38-126) U/L Total Creatine Kinase 47 (30-135) U/L CK-MB (CK-2) 0.4 (0.0-2.4) ng/mL CK-MB (CK-2) Rel Index 0.9 Troponin I <0.012 (0.000-0.034) ng/mL NT-Pro-B Natriuret Pep pg/mL Total Protein 6.4 (6.3-8.2) g/dL Albumin 3.9 (3.5-5.0) g/dL 10/19/18 10/19/18 Range/Units 18:10 18:10 WBC (3.8-10.6) k/uL RBC (3.80-5.40) m/uL Hgb (11.4-16.0) gm/dL Hct (34.0-46.0) % MCV (80.0-100.0) fL MCH (25.0-35.0) pg MCHC (31.0-37.0) g/dL RDW (11.5-15.5) % Plt Count (150-450) k/uL Neutrophils % % Lymphocytes % % Monocytes % % Eosinophils % % Basophils % % Neutrophils # (1.3-7.7) k/uL Lymphocytes # (1.0-4.8) k/uL Monocytes # (0-1.0) k/uL Eosinophils # (0-0.7) k/uL Basophils # (0-0.2) k/uL Hypochromasia Anisocytosis PT 10.9 (9.0-12.0) sec INR 1.0 (<1.2) APTT 23.6 (22.0-30.0) sec Sodium (137-145) mmol/L Potassium (3.5-5.1) mmol/L Chloride (98-107) mmol/L Carbon Dioxide (22-30) mmol/L Anion Gap mmol/L BUN (7-17) mg/dL Creatinine (0.52-1.04) mg/dL Est GFR (CKD-EPI)AfAm (>60 ml/min/1.73 sqM) Est GFR (CKD-EPI)NonAf (>60 ml/min/1.73 sqM) Glucose (74-99) mg/dL Calcium (8.4-10.2) mg/dL Total Bilirubin (0.2-1.3) mg/dL AST (14-36) U/L ALT (9-52) U/L Alkaline Phosphatase (38-126) U/L Total Creatine Kinase (30-135) U/L CK-MB (CK-2) (0.0-2.4) ng/mL CK-MB (CK-2) Rel Index Troponin I (0.000-0.034) ng/mL NT-Pro-B Natriuret Pep 1670 pg/mL Total Protein (6.3-8.2) g/dL Albumin (3.5-5.0) g/dL - Radiology Data Radiology results: image reviewed (Chest x-ray shows cardiomegaly and CHF. Left effusion.) Disposition Clinical Impression: Congestive heart failure Disposition: ADMITTED IP TO THIS HOSP Is patient prescribed a controlled substance at d/c from ED?: No Referrals: Refugio Cordova MD [Primary Care Provider] - 1-2 days Decision Time: 20:28
[2018-10-19 18:43] LABS: Anisocytosis Slight; Basophils % (A) 0 %; Eosinophils # (A) 0.1 k/uL (0-0.7); Eosinophils % (A) 1 %; HCT 30.2 % (34.0-46.0); HGB 9.2 gm/dL (11.4-16.0); Hypochromasia Moderate; Lymphocytes # (A) 0.5 k/uL (1.0-4.8); Lymphocytes % (A) 8 %; MCHC 30.5 g/dL (31.0-37.0); MCV 94.9 fL (80.0-100.0); Mean Platelet Volume 6.8; Monocytes # (A) 0.6 k/uL (0-1.0); Monocytes % (A) 8 %; Neutrophils # (A) 5.5 k/uL (1.3-7.7); Neutrophils % (A) 80 %; Platelet Count 264 k/uL (150-450); RBC 3.18 m/uL (3.80-5.40); RDW 16.6 % (11.5-15.5); WBC 6.8 k/uL (3.8-10.6)
--- NOTE | 2018-10-19 18:45 | XR ---
EXAMINATION TYPE: XR chest 2V DATE OF EXAM: 10/19/2018 COMPARISON: 03/17/2018 HISTORY: Short of breath TECHNIQUE: Frontal and lateral views of the chest are obtained. FINDINGS: Heart is enlarged. There is pulmonary vascular congestion. There is blunting of costophren ic angles. This probably infiltrate in both lower lobes. Bony thorax is intact. IMPRESSION: Congestive heart failure with pleural effusions. Chest appears worse than old exam. Bila teral lower lobe pneumonia is possible.
[2018-10-19 18:49] LABS: Albumin 3.9 g/dL (3.5-5.0); Calcium 9.8 mg/dL (8.4-10.2); Potassium 5.1 mmol/L (3.5-5.1); Total Bilirubin 0.5 mg/dL (0.2-1.3); Total Protein 6.4 g/dL (6.3-8.2)
[2018-10-19 18:51] LABS: Creatine Kinase 47 U/L (30-135)
[2018-10-19 18:52] LABS: Partial Thromboplastin Time 23.6 sec (22.0-30.0); Prothrombin Time 10.9 sec (9.0-12.0)
[2018-10-19 19:05] LABS: Creatine Kinase MB 0.4 ng/mL (0.0-2.4); Troponin I <0.012 ng/mL (0.000-0.034)
[2018-10-19] MEDS ORDERED: ASPIRIN 325 MG TAB PO STA (20:29)
[2018-10-19] MEDS: NITROGLYCERIN OINT 1 INCH/GM PACKET TOPICAL SCH (23:32)
[2018-10-20] MEDS: FUROSEMIDE 10 MG/ML 4 ML VIAL IV SCH ×4 (00:55→22:04)
[2018-10-20 05:47] VITALS: BMI 34.9
[2018-10-20 06:07] LABS: Anisocytosis Slight; Basophils # (A) 0.1 k/uL (0-0.2); Basophils % (A) 1 %; Eosinophils # (A) 0.2 k/uL (0-0.7); Eosinophils % (A) 3 %; HGB 8.6 gm/dL (11.4-16.0); Hypochromasia Marked; Lymphocytes # (A) 0.9 k/uL (1.0-4.8); Lymphocytes % (A) 15 %; MCH 28.8 pg (25.0-35.0); MCHC 29.7 g/dL (31.0-37.0); MCV 96.7 fL (80.0-100.0); Macrocytosis Slight; Mean Platelet Volume 6.6; Monocytes # (A) 0.6 k/uL (0-1.0); Monocytes % (A) 9 %; Neutrophils # (A) 4.1 k/uL (1.3-7.7); Neutrophils % (A) 68 %; Platelet Count 270 k/uL (150-450); RDW 16.8 % (11.5-15.5); WBC 6.1 k/uL (3.8-10.6)
[2018-10-20 06:19] LABS: Calcium 9.8 mg/dL (8.4-10.2); Potassium 4.2 mmol/L (3.5-5.1)
[2018-10-20 06:31] LABS: Glucose,Whole Blood 138 mg/dL (75-99)
[2018-10-20] MEDS ORDERED: DOCUSATE 100 MG CAP PO PRN (06:31)
[2018-10-20] MEDS ORDERED: BISACODYL 5 MG TABLET.DR PO PRN (06:31)
[2018-10-20] MEDS ORDERED: NITROGLYCERIN SL TABS 0.4 MG TAB SUBLINGUAL PRN (06:31)
[2018-10-20] MEDS ORDERED: ONDANSETRON ODT 8 MG TAB.RAPDIS PO PRN (06:31)
[2018-10-20] MEDS ORDERED: INSULIN LISPRO SQ-PUMP PRN (06:31)
[2018-10-20] MEDS ORDERED: ASPIRIN 325 MG TAB PO SCH (09:00)
[2018-10-20] MEDS ORDERED: NON-FORMULARY DRUG (Biotin [Biotin] 5,000 MCG) PO SCH (09:00)
[2018-10-20] MEDS ORDERED: NON-FORMULARY DRUG (Vitamin B Complex [Vitamin B Complex] 1 CAP) PO SCH (09:00)
[2018-10-20] MEDS ORDERED: NON-FORMULARY DRUG (Aspirin Ec 81 MG) PO SCH (09:00)
[2018-10-20] MEDS ORDERED: UBIDECARENONE 100 MG PO SCH (09:00)
[2018-10-20] MEDS: ASCORBIC ACID 500 MG TAB PO SCH (09:27)
[2018-10-20] MEDS: ATORVASTATIN 40 MG TAB PO SCH (09:27)
[2018-10-20] MEDS: FAMOTIDINE 20 MG TAB PO SCH (09:27)
[2018-10-20] MEDS: FERROUS SULFATE 325 MG TAB PO SCH (09:27)
[2018-10-20] MEDS: hydrALAZINE HCL 50 MG TAB PO SCH ×3 (09:27→20:06)
[2018-10-20] MEDS: CARVEDILOL 12.5 MG TAB PO SCH ×2 (09:28→20:06)
[2018-10-20] MEDS: MULTIVITAMINS, THERA 1 EACH TAB PO SCH (09:28)
[2018-10-20] MEDS: MYCOPHENOLATE MOFETIL 250 MG CAP PO SCH ×2 (09:29→22:04)
[2018-10-20] MEDS: predniSONE 5 MG TAB PO SCH (09:29)
[2018-10-20] MEDS: NITROGLYCERIN OINT 1 INCH/GM PACKET TOPICAL SCH ×4 (09:29→20:10)
[2018-10-20] MEDS: LIDOCAINE 5% PATCH TOPICAL SCH (09:30)
[2018-10-20] MEDS: TACROLIMUS 1 MG CAP PO SCH ×2 (09:30→22:04)
[2018-10-20] MEDS: ACETAMINOPHEN TAB 500 MG TAB PO PRN ×2 (09:36→22:06)
--- NOTE | 2018-10-20 09:40 | CONS ---
CONSULTATION REASON FOR CONSULT: Renal failure and history of kidney transplant. ALLERGIES: Patient is a 68-year-old female with history of chronic kidney disease, stage IV with baseline creatinine about 1.7 mg/dL. The patient has a history of living unrelated renal allograft at [facility] done in 2004.. She is maintained on Prograf, prednisone and CellCept. The patient was admitted to the hospital with complaints off increased lower extremity edema and shortness of breath as well. She recently had spine surgery, which has healed well and patient states that since her surgery she has had increased lower extremity edema. PAST MEDICAL HISTORY: Significant for coronary artery disease, type 2 diabetes. Gastroesophageal reflux disease, hyperlipidemia, hypertension, end-stage renal disease, status post living unrelated renal transplant at [facility] in 2004, chronic anemia, and CKD mineral bone disorder. PAST SURGICAL HISTORY: Coronary stent placement, cardiac catheterization, , left Achilles tendon repair, retinal surgery, left eye cataract surgery, kidney transplant 2005 at [facility]. PAST SOCIAL HISTORY: Negative for smoking, drug abuse or alcohol abuse. MEDICATIONS: Medications at home prior to admission included prednisone, Prograf, CellCept, nitroglycerin, Lasix, hydralazine, multivitamins, iron, Pepcid, Aranesp, Colace, Coreg, Dulcolax, Lipitor, aspirin, vitamin C, Norvasc, acetaminophen. The patient was also maintained on Aranesp, Zantac. REVIEW OF SYSTEMS: As per HPI. Other systems negative. PHYSICAL EXAMINATION: Patient is comfortable, awake, alert, oriented x3. She is not in any acute distress. Blood pressure was 144/65. Heart rate 73 per minute. She is afebrile. Examination of the heart S1, S2. Examination of lungs bilateral breath sounds are heard. Abdomen is soft, nontender. Examination of lower extremities shows edema bilaterally about 2+. Legs are wrapped. QA MANAGER exam is grossly intact. Examination of the lungs did show basal crackles bilaterally. LAB: Show sodium 139, potassium 4.2, chloride 107, BUN of 56, serum creatinine 2.07, hemoglobin 8.6 g/dL. The UA is not available. ASSESSMENT: 1. Chronic kidney disease NKF stage IV secondary to chronic allograft nephropathy with baseline creatinine about 1.7. 2. Acute kidney injury, most likely cardiorenal associated with fluid overload. I will continue with the current dose of Lasix. We will measure urine output accurately and increase Lasix if needed. Obtain echocardiogram if not done recently. In December of 2016, ejection fraction was 60-65 percent on echocardiogram done in the hospital. 3. Fluid overload. Continue with current dose of IV Lasix. Avoid hypotension. 4. Status post living unrelated renal transplant at [facility] in 2004. Continue with the Prograf and CellCept and prednisone for now. 5. Hypertension, partly volume sensitive. Continue with current medications. May need to consider decreasing dose of Norvasc based on the lower extremity edema. PLAN: Continue with IV Lasix. Avoid hypotension and check urinalysis. Check iron studies. Maintain patient on Aranesp, increase dose to 40 mcg and repeat labs in a.m. Check accurate I's and O's. Thank you for this consultation. We will continue to follow the patient with you during her hospitalization. MMLATANYAL / SKYLARN: [id number] /
--- NOTE | 2018-10-20 10:04 | P.CRDCN ---
History of Present Illness Consult date: 10/20/18 Requesting physician: Claudia Tyler Consult reason: congestive heart failure Chief complaint: Shortness of breath and bilateral leg edema History of present illness: This is a pleasant 68-year-old female with known history of hypertension, diabetes, hyperlipidemia, coronary artery disease with prior stent placement, history of kidney transplant 11 years ago, her most recent stent procedure was performed in November 2016 at which time patient underwent PTCA and stenting of mid circumflex by Dr. Fareed Ahmadi. Subsequent to that patient did develop a pseudoaneurysm with subsequent surgical repair. Most recent echocardiogram with Doppler study was performed in November 2016 which revealed an ejection fraction of 60-65%. Patient did most recently undergo back surgery in [place]. She presents to the hospital on this occasion with a 3 day duration of worsening shortness of breath and peripheral edema. Chest x- ray on admission here showed congestive heart failure with pleural effusions. Appears worsened prior exam. Bilateral lower pneumonia is possible. EKG shows a normal sinus rhythm with no acute changes. Blood pressure 142/70 with a heart rate in the 70s, 90% on 3 L of oxygen, temperature 98.1. White blood cell count 6.1, hemoglobin 9.2 on admission, 8.6 this morning. Platelet count 270. Sodium 139, potassium 4.2, BUN 56, creatinine 2.0. Troponin 0.012, BNP level 1670. Patient was initiated on IV Lasix in the emergency room. Her weight today is down 2 kg. She continues to have significant bilateral peripheral edema. Past Medical History Past Medical History: Coronary Artery Disease (CAD), Diabetes Mellitus, Hyperlipidemia, Hypertension, Renal Disease Additional Past Medical History / Comment(s): Chronic renal disease stage III with previous renal transplant, chronic anemia, IDDM with insulin pump, gluten free diet, neuropathy. Stenosis, DDD of back, States abnormal stress test. pt had recent back surg. at [facility] Aug 09 2018 History of Any Multi-Drug Resistant Organisms: None Reported Past Surgical History: Section, Heart Catheterization, Heart Catheterization With Stent, Orthopedic Surgery Additional Past Surgical History / Comment(s): 2005 Kidney transplant at [facility] , bilateral cataracts, retinal peeling in left eye, L achilles tendon repair , L upper arm dialysis fistula, has a total of 4cardiac stents, 2 c/s. Past Anesthesia/Blood Transfusion Reactions: Motion Sickness, Postoperative Nausea & Vomiting (PONV) Additional Past Anesthesia/Blood Transfusion Reaction / Comment(s): PONV after C /S Date of Last Stent Placement:: 2016. Past Psychological History: No Psychological Hx Reported Additional Psychological History / Comment(s): . Smoking Status: Never smoker Past Alcohol Use History: Rare Additional Past Alcohol Use History / Comment(s): Patient is a lifelong nonsmoker. Uses medical marijuana occas. for pain. Drinks a glass of red wine rarely now. Past Drug Use History: Marijuana Additional Drug Use History / Comment(s): Uses the drops occas. for pain. - Past Family History Father Family Medical History: Myocardial Infarction (LA) Additional Family Medical History / Comment(s): Father at age 70 from myocardial infarction Mother Family Medical History: Cancer Additional Family Medical History / Comment(s): Mother at age 86 from pneumonia. Sister(s) Family Medical History: Cancer Additional Family Medical History / Comment(s): . Medications and Allergies Home Medications Medication Instructions Recorded Confirmed Type Ascorbic Acid [Vitamin C] 500 mg PO DAILY 04/09/15 10/19/18 History Aspirin EC [Ecotrin Low Dose] 81 mg PO DAILY 04/09/15 10/19/18 History Tacrolimus [Prograf] 3 mg PO QAM 04/09/15 10/19/18 History predniSONE 5 mg PO DAILY 04/09/15 10/19/18 History Multivit-Min/Iron/Folic/Lutein 1 tab PO DAILY 03/04/16 10/19/18 History [Centrum Silver Women Tablet] Nitroglycerin Sl Tabs [Nitrostat] 0.4 mg SUBLINGUAL Q5M PRN 03/04/16 10/19/18 History Vitamin B Complex 1 cap PO DAILY 03/04/16 10/19/18 History Albuterol Inhaler [Ventolin Hfa 2 puff INHALATION RT-Q4H PRN 09/16/16 10/19/18 History Inhaler] Glucagon Emergency Kit 1 mg IM DIRECTED PRN 09/16/16 10/19/18 History INSULIN LISPRO (For Pump) [humaLOG 0.01 units SQ-PUMP CONTINUOUS PRN 11/26/16 History (For Pump)] Biotin 5,000 mcg PO DAILY 06/09/17 10/19/18 History Ranitidine HCl [Zantac] 150 mg PO DAILY 06/09/17 10/19/18 History Ubidecarenone [Coenzyme Q10] 100 mg PO DAILY 06/09/17 10/19/18 History Aloe 225 1 cap PO DAILY 03/17/18 10/19/18 History Tacrolimus [Prograf] 2 mg PO HS 03/17/18 10/20/18 History Acetaminophen [Tylenol] 500 mg PO Q8H PRN 10/19/18 10/19/18 History Atorvastatin [Lipitor] 40 mg PO DAILY 10/19/18 10/19/18 History Bisacodyl [Dulcolax] 10 mg PO DAILY PRN 10/19/18 10/19/18 History Carvedilol [Coreg] 12.5 mg PO BID 10/19/18 10/19/18 History Darbepoetin Naveed [Aranesp] 25 mcg SQ Q7D 10/19/18 10/19/18 History Docusate [Colace] 100 mg PO BID PRN 10/19/18 10/19/18 History Ferrous Sulfate [Feosol] 325 mg PO DAILY 10/19/18 10/19/18 History Furosemide [Lasix] 40 mg PO QAM PRN 10/19/18 10/20/18 History Lidocaine 5% Patch [Lidoderm 5% 1 patch TRANSDERM DAILY 10/19/18 10/19/18 History Patch] Magnesium Oxide [Mag-Ox] 250 mg PO Q48H 10/19/18 10/19/18 History Mycophenolate Mofetil [Cellcept] 750 mg PO BID 10/19/18 10/19/18 History Ondansetron [Zofran ODT] 8 mg SL Q8HR PRN 10/19/18 10/19/18 History Phenyleph/Pramoxin/Glycr/W.pet 1 dose RECTAL BID PRN 10/19/18 10/19/18 History [Preparation H Cream] hydrALAZINE HCL [Apresoline] 100 mg PO TID 10/19/18 10/19/18 History Furosemide [Lasix] 20 mg PO HS PRN 10/20/18 10/20/18 History amLODIPine [Norvasc] 10 mg PO DAILY 10/20/18 10/20/18 History Allergies Allergy/AdvReac Type Severity Reaction Status Date / Time Sulfa (Sulfonamide Allergy Rash/Hives Verified 10/19/18 18:31 Antibiotics) vancomycin Allergy Rash/Hives Verified 10/19/18 18:31 venom-honey bee Allergy Swelling Verified 10/19/18 18:31 [bee venom (honey bee)] metoprolol tartrate AdvReac Confusion Verified 10/19/18 18:31 [From Lopressor] Physical Exam Vitals: Vital Signs Temp Pulse Pulse Resp BP BP Pulse Ox 10/20/18 08:00 98.1 F 75 142/75 90 L 10/20/18 04:57 73 16 144/65 97 10/20/18 04:20 73 16 96 10/20/18 04:00 98.8 F 74 19 141/71 97 10/20/18 01:06 98.8 F 74 19 141/71 97 10/20/18 00:54 63 10/19/18 23:28 66 16 140/42 97 10/19/18 21:34 75 20 143/65 97 10/19/18 19:00 74 20 158/57 97 10/19/18 18:13 24 10/19/18 18:00 74 24 158/57 95 10/19/18 17:27 98.1 F 78 28 H 131/68 87 L Intake and Output 10/19/18 10/20/18 10/20/18 22:59 06:59 14:59 Intake Total 10 120 Balance 10 120 Intake: IV 10 Invasive Line 1 10 Oral 120 Other: Voiding Method Toilet Weight 97.069 kg 95.3 kg PHYSICAL EXAMINATION: GENERAL: 68-year-old female in no acute distress at the time of my examination HEENT: Head is atraumatic, normocephalic. Pupils equal, round. Sclera anicteric. Conjunctiva are clear. Mucous membranes of the mouth are moist. Neck is supple. There is elevated jugular venous pressure. No carotid bruit is heard. HEART EXAMINATION: R S1 and S2 systolic murmur is heard. CHEST EXAMINATION: Lungs are clear to auscultation and precussion. No chest wall tenderness is noted on palpation or with deep breathing. ABDOMEN: Soft, nontender. Bowel sounds are heard. No organomegaly noted. EXTREMITIES: 2+ peripheral pulses with 2-3+ evidence of peripheral edema and no calf tenderness noted. NEUROLOGIC patient is awake, alert and oriented 3. . Results 10/20/18 05:43 10/20/18 05:43 Cardiac Enzymes 10/19/18 10/19/18 Range/Units 18:10 18:10 AST 28 (14-36) U/L CK-MB (CK-2) 0.4 (0.0-2.4) ng/mL Troponin I <0.012 (0.000-0.034) ng/mL Coagulation 10/19/18 Range/Units 18:10 PT 10.9 (9.0-12.0) sec APTT 23.6 (22.0-30.0) sec CBC 10/19/18 10/20/18 Range/Units 18:10 05:43 WBC 6.8 6.1 (3.8-10.6) k/uL RBC 3.18 L 3.00 L (3.80-5.40) m/uL Hgb 9.2 L 8.6 L (11.4-16.0) gm/dL Hct 30.2 L 29.0 L (34.0-46.0) % Plt Count 264 270 (150-450) k/uL Comprehensive Metabolic Panel 10/19/18 10/20/18 Range/Units 18:10 05:43 Sodium 137 139 (137-145) mmol/L Potassium 5.1 4.2 (3.5-5.1) mmol/L Chloride 107 107 (98-107) mmol/L Carbon Dioxide 20 L 23 (22-30) mmol/L BUN 58 H 56 H (7-17) mg/dL Creatinine 2.03 H 2.07 H (0.52-1.04) mg/dL Glucose 230 H 150 H (74-99) mg/dL Calcium 9.8 9.8 (8.4-10.2) mg/dL AST 28 (14-36) U/L ALT 26 (9-52) U/L Alkaline Phosphatase 60 (38-126) U/L Total Protein 6.4 (6.3-8.2) g/dL Albumin 3.9 (3.5-5.0) g/dL Current Medications Generic Name Dose Route Start Last Admin Trade Name Freq PRN Reason Stop Dose Admin Acetaminophen 500 mg 10/20/18 06:31 10/20/18 09:36 Tylenol Tab PO 500 mg Q8H PRN Administration Pain Albuterol Sulfate 2.5 mg 10/20/18 06:31 Ventolin Nebulized INHALATION RT-Q4H PRN Shortness Of Breath Amlodipine Besylate 10 mg 10/20/18 09:00 Norvasc PO DAILY [facility] Ascorbic Acid 500 mg 10/20/18 09:00 10/20/18 09:27 Vitamin C PO 500 mg DAILY [facility] Administration Aspirin 325 mg 10/20/18 09:00 10/20/18 09:28 Aspirin PO 325 mg DAILY [facility] Administration Atorvastatin Calcium 40 mg 10/20/18 09:00 10/20/18 09:27 Lipitor PO 40 mg DAILY [facility] Administration Bisacodyl 10 mg 10/20/18 06:31 Dulcolax PO DAILY PRN Constipation Carvedilol 12.5 mg 10/20/18 09:00 10/20/18 09:28 Coreg PO 12.5 mg BID [facility] Administration Darbepoetin Naveed 40 mcg 10/24/18 09:00 Aranesp SQ Q7D [facility] Docusate Sodium 100 mg 10/20/18 06:31 Colace PO BID PRN Constipation Famotidine 20 mg 10/20/18 09:00 10/20/18 09:27 Pepcid PO 20 mg DAILY [facility] Administration Ferrous Sulfate 325 mg 10/20/18 09:00 10/20/18 09:27 Feosol PO 325 mg DAILY [facility] Administration Furosemide 40 mg 10/20/18 00:00 10/20/18 09:30 Lasix IV 40 mg Q8HR [facility] Administration Hydralazine HCl 100 mg 10/20/18 09:00 10/20/18 09:27 Apresoline PO 100 mg TID [facility] Administration Lidocaine 1 patch 10/20/18 09:00 10/20/18 09:30 Lidoderm TOPICAL Not Given DAILY [facility] Multivitamins 1 each 10/20/18 12:00 10/20/18 09:28 Theragran PO 1 each DAILY@1200 [facility] Administration Mycophenolate Mofetil 750 mg 10/20/18 09:00 10/20/18 09:29 Cellcept PO 750 mg BID [facility] Administration Nitroglycerin 1 inch 10/19/18 22:00 10/20/18 09:29 Nitro-Bid Oint TOPICAL 1 inch QID [facility] Administration Nitroglycerin 0.4 mg 10/20/18 06:31 Nitrostat SUBLINGUAL Q5M PRN Chest Pain Non-Formulary Medication 0.01 units 10/20/18 06:31 Insulin Lispro (For Pump) [Humalog (For Pump)] SQ-PUMP CONTINUOUS PRN Blood Sugar - High Non-Formulary Medication 250 mg 10/20/18 06:45 Magnesium Oxide PO Q48H [facility] Ondansetron HCl 8 mg 10/20/18 06:31 Zofran Odt PO Q8HR PRN Nausea And Vomiting Prednisone 5 mg 10/20/18 09:00 10/20/18 09:29 PO 5 mg DAILY [facility] Administration Sodium Chloride 10 ml 10/19/18 21:00 10/20/18 09:37 Saline Flush IV 10 ml BID [facility] Administration Tacrolimus 2 mg 10/20/18 21:00 Prograf PO HS [facility] Tacrolimus 3 mg 10/20/18 09:00 10/20/18 09:30 Prograf PO 3 mg QAM [facility] Administration Intake and Output 10/19/18 10/20/18 10/20/18 22:59 06:59 14:59 Intake Total 10 120 Balance 10 120 Intake: IV 10 Invasive Line 1 10 Oral 120 Other: Voiding Method Toilet Weight 97.069 kg 95.3 kg 10/20/18 05:43 10/20/18 05:43 EKG Interpretations (text) EKG shows normal sinus rhythm with no acute changes. Assessment and Plan Plan: Assessment and plan #1 diastolic congestive heart failure acute on chronic most recent echocardiogram with Doppler study available was performed in 2017 revealed a normal left ventricular systolic function. #2 known history of coronary artery disease with prior stent placements, most recent being in November of last year which time patient underwent angioplasty and stenting of the circumflex artery. #3 history of renal transplant 11 years ago #4 hypertension #5 diabetes #6 hyperlipidemia #7 recent back surgery #8 chronic anemia Plan We will obtain a repeat echocardiogram with Doppler study. Continue current dose of IV Lasix monitoring intake and output and daily weights. Further recommendations to follow. DNP note has been reviewed, I agree with a documented findings and plan of care. Patient was seen and examined.
[2018-10-20] MEDS ORDERED: INSPUCOR MISCELLANE PRN (10:22)
[2018-10-20] MEDS ORDERED: INSULIN PUMP BASAL RATES 1 EACH MISC MISCELLANE PRN (10:22)
[2018-10-20] MEDS ORDERED: INSULIN ASPART 100 UNIT/ML 1 ML 10 ML VIAL SQ PRN (10:22)
[2018-10-20] MEDS ORDERED: INSULIN PUMP ACTIVE INSULIN 1 EACH MISC MISCELLANE PRN (10:22)
[2018-10-20] MEDS ORDERED: INSULIN PUMP TARGET GLUCOSE 1 EACH MISC MISCELLANE PRN (10:22)
[2018-10-20 11:45] LABS: Glucose,Whole Blood 95 mg/dL (75-99)
[2018-10-20] MEDS: INSULIN PUMP MEAL BOLUS 1 UNIT MISC MISCELLANE SCH ×3 (12:27→20:17)
--- NOTE | 2018-10-20 12:51 | ECHOF ---
Referral Reason:Heart Failure MEASUREMENTS -------- HEIGHT: 165.1 cm WEIGHT: 95.3 kg BP: 144/65 RVIDd: 2.7 cm (< 3.3) IVSd: 1.6 cm (0.6 - 1.1) LVIDd: 5.2 cm (3.9 - 5.3) LVPWd: 1.6 cm (0.6 - 1.1) IVSs: 2.0 cm LVIDs: 3.1 cm LVPWs: 2.0 cm LAESV Index (A-L): 49.34 ml/m Ao Diam: 3.1 cm (2.0 - 3.7) AV Cusp: 1.9 cm (1.5 - 2.6) LA Diam: 4.4 cm (2.7 - 3.8) EPSS: 1.2 cm MV E Adair: 1.79 m/s MV DecT: 214 ms MV A [place]: 0.87 m/s MV E/A Ratio: 2.07 AV maxP.43 mmHg AV meanP.77 mmHg RAP: 10.00 mmHg RVSP: 77.69 mmHg MV EF SLOPE: 103.80 mm/s (70 - 150) MV EXCURSION: 1.21 cm (> 18.000) FINDINGS -------- Sinus rhythm. This was a technically good study. The left ventricular size is normal. There is moderate concentric left ventricular hypertrophy. O verall left ventricular systolic function is normal with, an EF between 65 - 70 %. The right ventricle is normal in size and function. LA is severely dilated >40 ml/m2 The right atrium is markedly enlarged. Aortic valve is trileaflet and is mildly thickened. There is no evidence of aortic regurgitation. There is no evidence of aortic stenosis. The mitral valve leaflets are moderate to severely thickened. Moderate mitral annular calcification present. [id number] mitral regurgitation is present. The peak and mean MV gradients are 2 0.17mmHg 6.00mmHg as measured by doppler. Ptro-je-nlmopjzz mitral stenosis. Moderate to severe tricuspid regurgitation present. There is severe pulmonary hypertension. The r ight ventricular systolic pressure, as measured by Doppler, is 77.69mmHg. Trace/mild (physiologic) pulmonic regurgitation. The aortic root size is normal. The IVC is dilated with normal collapse. There is no pericardial effusion. CONCLUSIONS -------- 1. Sinus rhythm. 2. This was a technically good study. 3. The left ventricular size is normal. 4. There is moderate concentric left ventricular hypertrophy. 5. Overall left ventricular systolic function is normal with, an EF between 65 - 70 %. 6. LA is severely dilated >40 ml/m2 7. The right atrium is markedly enlarged. 8. Aortic valve is trileaflet and is mildly thickened. 9. The mitral valve leaflets are moderate to severely thickened. 10. Moderate mitral annular calcification present. 11. Imkr-vs-tuebxqfu mitral regurgitation is present. 12. The peak and mean MV gradients are 20.17mmHg 6.00mmHg as measured by doppler. 13. Magg-tq-blgmatyp mitral stenosis. 14. Moderate to severe tricuspid regurgitation present. 15. There is severe pulmonary hypertension. 16. The right ventricular systolic pressure, as measured by Doppler, is 77.69mmHg. 17. Trace/mild (physiologic) pulmonic regurgitation. 18. The aortic root size is normal. 19. The IVC is dilated with normal collapse. 20. There is no pericardial effusion. [employer] MANAGER: Michael Coles RDCS
--- NOTE | 2018-10-20 15:52 | P.HPIM ---
History of Present Illness H&P Date: 10/20/18 Chief Complaint: shortness of breath This is a 66-year-old pleasant female patient of Dr. Cordova , she has underlying past medical history for diabetes mellitus on insulin pump, CAD, GERD , hyperlipidemia, hypertension, end-stage renal disease status post renal transplant 2004 at [facility] and follows every 6 months. patient also has chronic anemia requiring Procrit as well as iron infusion by Dr. Hussein, known CAD for which she underwent cardiac cath May [address] ELISABETH Ahmadi, requiring PTCA and stenting of the mid circumflex, she presented to the emergency room secondary to 3 day duration of shortness of breath which is worse with laying down and ambulation, no chest pain patient also has increasing lower extremity edema, patient denies any fever no chills, denies any sick contacts. Patient hasn't slept well for the past 3 days secondary to the shortness of breath. she comes in with acute diastolic CHF exacerbation with significant peripheral edema , In the emergency room, EKG shows normal sinus rhythm with no acute changes, she is satting 90% on 3 L nasal cannula, hemoglobin 9.2, creatinine 2.0, BUN 56, BNP 1670, patient was started on IV Lasix. Echocardiogram performed this morning showing EF 65-70%, LA severely dilated over 40, no aortic stenosis, moderate MR, mitral valve severely thickened, moderate to severe tricuspid regurgitation, severe pulmonary hypertension, tract and declares systolic pressure of 77, no pericardial effusion. Patient does not have any history of sleep studies in the past however the mentions that she is a snorer consult was made with cardiology, and Dr. Mays from pulmonary medicine patient is currently on IV Lasix 40 mg every 8 hours O2 supplementation, renal consultation secondary to the history of renal transplant Review of Systems Constitutional: Reports as per HPI, Denies anorexia, Denies chills, Denies chronic headaches, Denies chronic pain, Denies daytime sleepiness, Denies fatigue, Denies fever, Denies lethargy, Denies malaise, Denies night sweats, Denies poor appetite, Denies sweats, Denies weakness, Denies weight gain, Denies weight loss Ears, nose, mouth and throat: Reports as per HPI, Denies ant. neck pain, Denies bleeding gums, Denies dental pain, Denies dysphagia, Denies epistaxis, Denies headache, Denies hoarseness, Denies mouth pain, Denies nasal congestion, Denies nasal discharge, Denies neck fullness/pressure, Denies neck lump, Denies nose pain, Denies odynophagia, Denies post-nasal drip, Denies sinus pain, Denies sinus pressure, Denies swelling in mouth, Denies swelling in throat, Denies sore throat, Denies vertigo, Denies voice changes Cardiovascular: Reports as per HPI, Reports decreased exercise tolerance, Reports dyspnea on exertion, Reports edema, Reports leg edema, Reports paroxysmal nocturnal dyspnea, Reports shortness of breath, Denies chest pain, Denies claudication, Denies high blood pressure, Denies irregular heart beat, Denies lightheadedness, Denies orthopnea, Denies palpitations, Denies phlebitis , Denies rapid heart beat, Denies syncope Respiratory: Reports cough Gastrointestinal: Reports as per HPI, Denies abdominal pain, Denies belching, Denies bloating, Denies BRBPR, Denies change in bowel habits, Denies coffee ground emesis, Denies constipation, Denies diarrhea, Denies dyspepsia, Denies early satiety, Denies excessive gas, Denies heartburn, Denies hematemesis, Denies hematochezia, Denies indigestion, Denies jaundice, Denies lactose intolerance, Denies loss of appetite, Denies melena, Denies nausea, Denies vomiting Genitourinary: Reports as per HPI, Denies abnormal vaginal bleeding, Denies decreased libido, Denies difficulty conceiving, Denies difficulty voiding, Denies dysmenorrhea, Denies dyspareunia, Denies dysuria, Denies flank pain, Denies genital sores, Denies hematuria, Denies hot flashes, Denies incomplete emptying, Denies kidney stones, Denies menorrhagia, Denies mixed incontinence, Denies nocturia, Denies pelvic pain, Denies post void dribbling, Denies , Denies prolapse symptoms, Denies stress incontinence, Denies urge incontinence , Denies urgency, Denies urinary frequency, Denies vaginal discharge, Denies vaginal dryness, Denies vaginal itching, Denies vaginal odor Menstruation: Reports as per HPI, Denies amenorrhea, Denies amenorrhea on BC, Denies currently menstrual, Denies cycle < 21 days, Denies cycle > 35 days, Denies cycle variable, Denies menses 1-7 days, Denies menses 8 or > days, Denies menses variable, Denies period heavy, Denies period light, Denies period normal, Denies period spotting, Denies post hysterectomy, Denies postmenopausal , Denies premenarcheal Musculoskeletal: Reports as per HPI Integumentary: Reports as per HPI, Denies acne, Denies boils, Denies brittle nails, Denies change in hair/nails, Denies color changes, Denies darkening of skin, Denies depigmentation, Denies dryness, Denies foot/leg ulcers, Denies growths, Denies hirsutism, Denies lesions, Denies onychomycosis, Denies pruritus , Denies rash, Denies sores, Denies striae, Denies unusual bruising, Denies wounds Neurological: Reports as per HPI, Reports weakness, Denies aphasia, Denies ataxia, Denies balance difficulties, Denies burning pain, Denies change in mentation, Denies change in smell/taste, Denies change in speech, Denies confusion, Denies convulsions, Denies double vision, Denies gait dysfunction, Denies head injury, Denies headaches, Denies hearing difficulties, Denies lack of coordination, Denies loss of vision, Denies memory loss, Denies migraines, Denies motor disturbance, Denies numbness, Denies paralysis, Denies paresthesias , Denies seizures, Denies sensory deficit, Denies spasticity, Denies syncope, Denies tic, Denies tingling, Denies transient paralysis, Denies tremors, Denies vertigo, Denies visual changes Psychiatric: Reports as per HPI, Denies anhedonia, Denies anxiety, Denies anxiety attacks, Denies change in appetite, Denies change in libido, Denies change in sleep habits, Denies confusion, Denies depression, Denies difficulty concentrating, Denies disorientation, Denies hallucinations, Denies hopelessness , Denies hypersomnia, Denies insomnia, Denies irritability, Denies memory loss, Denies mood swings, Denies paranoia, Denies sadness/tearfulness, Denies sleep disturbances, Denies suicidal ideation Endocrine: Reports as per HPI, Denies cold intolerance, Denies deepening of the voice, Denies excessive sweating, Denies excessive thirst, Denies fatigue, Denies flushing, Denies heat intolerance, Denies high blood sugars, Denies increase in ring/shoe/hat size, Denies low blood sugars, Denies nocturia, Denies palpitations, Denies polydipsia, Denies polyphagia, Denies polyuria, Denies proptosis, Denies recent glucocorticoid use, Denies thyroid mass, Denies weight change Hematologic/Lymphatic: Reports as per HPI Allergic/Immunologic: Reports as per HPI Past Medical History Past Medical History: Coronary Artery Disease (CAD), Diabetes Mellitus, Hyperlipidemia, Hypertension, Renal Disease Additional Past Medical History / Comment(s): Chronic renal disease stage III with previous renal transplant, chronic anemia, IDDM with insulin pump, gluten free diet, neuropathy. Stenosis, DDD of back, States abnormal stress test. pt had recent back surg. at [facility] Aug 09 2018 History of Any Multi-Drug Resistant Organisms: None Reported Past Surgical History: Section, Heart Catheterization, Heart Catheterization With Stent, Orthopedic Surgery Additional Past Surgical History / Comment(s): 2005 Kidney transplant at [facility] , bilateral cataracts, retinal peeling in left eye, L achilles tendon repair , L upper arm dialysis fistula, has a total of 4cardiac stents, 2 c/s. Past Anesthesia/Blood Transfusion Reactions: Motion Sickness, Postoperative Nausea & Vomiting (PONV) Additional Past Anesthesia/Blood Transfusion Reaction / Comment(s): PONV after C /S Date of Last Stent Placement:: 2016. Past Psychological History: No Psychological Hx Reported Additional Psychological History / Comment(s): . Smoking Status: Never smoker Past Alcohol Use History: Rare Additional Past Alcohol Use History / Comment(s): Patient is a lifelong nonsmoker. Uses medical marijuana occas. for pain. Drinks a glass of red wine rarely now. Past Drug Use History: Marijuana Additional Drug Use History / Comment(s): Uses the drops occas. for pain. - Past Family History Father Family Medical History: Myocardial Infarction (HI) Additional Family Medical History / Comment(s): Father at age 70 from myocardial infarction Mother Family Medical History: Cancer Additional Family Medical History / Comment(s): Mother at age 86 from pneumonia. Sister(s) Family Medical History: Cancer Additional Family Medical History / Comment(s): . Medications and Allergies Home Medications Medication Instructions Recorded Confirmed Type Ascorbic Acid [Vitamin C] 500 mg PO DAILY 04/09/15 10/19/18 History Aspirin EC [Ecotrin Low Dose] 81 mg PO DAILY 04/09/15 10/19/18 History Tacrolimus [Prograf] 3 mg PO QAM 04/09/15 10/19/18 History predniSONE 5 mg PO DAILY 04/09/15 10/19/18 History Multivit-Min/Iron/Folic/Lutein 1 tab PO DAILY 03/04/16 10/19/18 History [Centrum Silver Women Tablet] Nitroglycerin Sl Tabs [Nitrostat] 0.4 mg SUBLINGUAL Q5M PRN 03/04/16 10/19/18 History Vitamin B Complex 1 cap PO DAILY 03/04/16 10/19/18 History Albuterol Inhaler [Ventolin Hfa 2 puff INHALATION RT-Q4H PRN 09/16/16 10/19/18 History Inhaler] Glucagon Emergency Kit 1 mg IM DIRECTED PRN 09/16/16 10/19/18 History INSULIN LISPRO (For Pump) [humaLOG 0.01 units SQ-PUMP CONTINUOUS PRN 11/26/16 History (For Pump)] Biotin 5,000 mcg PO DAILY 06/09/17 10/19/18 History Ranitidine HCl [Zantac] 150 mg PO DAILY 06/09/17 10/19/18 History Ubidecarenone [Coenzyme Q10] 100 mg PO DAILY 06/09/17 10/19/18 History Aloe 225 1 cap PO DAILY 03/17/18 10/19/18 History Tacrolimus [Prograf] 2 mg PO HS 03/17/18 10/20/18 History Acetaminophen [Tylenol] 500 mg PO Q8H PRN 10/19/18 10/19/18 History Atorvastatin [Lipitor] 40 mg PO DAILY 10/19/18 10/19/18 History Bisacodyl [Dulcolax] 10 mg PO DAILY PRN 10/19/18 10/19/18 History Carvedilol [Coreg] 12.5 mg PO BID 10/19/18 10/19/18 History Darbepoetin Naveed [Aranesp] 25 mcg SQ Q7D 10/19/18 10/19/18 History Docusate [Colace] 100 mg PO BID PRN 10/19/18 10/19/18 History Ferrous Sulfate [Feosol] 325 mg PO DAILY 10/19/18 10/19/18 History Furosemide [Lasix] 40 mg PO QAM PRN 10/19/18 10/20/18 History Lidocaine 5% Patch [Lidoderm 5% 1 patch TRANSDERM DAILY 10/19/18 10/19/18 History Patch] Magnesium Oxide [Mag-Ox] 250 mg PO Q48H 10/19/18 10/19/18 History Mycophenolate Mofetil [Cellcept] 750 mg PO BID 10/19/18 10/19/18 History Ondansetron [Zofran ODT] 8 mg SL Q8HR PRN 10/19/18 10/19/18 History Phenyleph/Pramoxin/Glycr/W.pet 1 dose RECTAL BID PRN 10/19/18 10/19/18 History [Preparation H Cream] hydrALAZINE HCL [Apresoline] 100 mg PO TID 10/19/18 10/19/18 History Furosemide [Lasix] 20 mg PO HS PRN 10/20/18 10/20/18 History amLODIPine [Norvasc] 10 mg PO DAILY 10/20/18 10/20/18 History Allergies Allergy/AdvReac Type Severity Reaction Status Date / Time Sulfa (Sulfonamide Allergy Rash/Hives Verified 10/19/18 18:31 Antibiotics) vancomycin Allergy Rash/Hives Verified 10/19/18 18:31 venom-honey bee Allergy Swelling Verified 10/19/18 18:31 [bee venom (honey bee)] metoprolol tartrate AdvReac Confusion Verified 10/19/18 18:31 [From Lopressor] Physical Exam Vitals: Vital Signs Temp Pulse Pulse Resp BP BP Pulse Ox 10/20/18 12:00 97.9 F 63 18 136/62 95 10/20/18 08:00 98.1 F 75 142/75 90 L 10/20/18 04:57 73 16 144/65 97 10/20/18 04:20 73 16 96 10/20/18 04:00 98.8 F 74 19 141/71 97 10/20/18 01:06 98.8 F 74 19 141/71 97 10/20/18 00:54 63 10/19/18 23:28 66 16 140/42 97 10/19/18 21:34 75 20 143/65 97 10/19/18 19:00 74 20 158/57 97 10/19/18 18:13 24 10/19/18 18:00 74 24 158/57 95 10/19/18 17:27 98.1 F 78 28 H 131/68 87 L Intake and Output 10/20/18 10/20/18 10/20/18 06:59 14:59 22:59 Intake Total 10 260 Balance 10 260 Intake: IV 10 20 Invasive Line 1 10 20 Oral 240 Other: Voiding Method Toilet # Bowel Movements 1 Weight 95.3 kg 95.3 kg - Constitutional General appearance: average body habitus, no acute distress, obese - EENT Eyes: anicteric sclerae, EOMI, PERRLA, dentition normal ENT: NA/AT, normal oropharynx - Neck Neck: normal ROM - Respiratory Respiratory: bilateral: CTA, diminished, negative: dullness, rales, rhonchi - Cardiovascular Rhythm: regular Heart sounds: normal: S1 Abnormal Heart Sounds: no systolic murmur, no diastolic murmur, no rub, no S3 Gallop, no S4 Gallop, no click, no other - Integumentary Integumentary: decreased turgor, normal - Neurologic Neurologic: CNII-XII intact - Musculoskeletal Musculoskeletal: gait normal, strength equal bilaterally - Psychiatric Psychiatric: A&O x's 3, appropriate affect, intact judgment & insight Results CBC & Chem 7: 10/20/18 05:43 10/20/18 05:43 Labs: Abnormal Lab Results - Last 24 Hours (Table) 10/19/18 10/19/18 10/20/18 Range/Units 18:10 18:10 05:43 RBC 3.18 L 3.00 L (3.80-5.40) m/uL Hgb 9.2 L 8.6 L (11.4-16.0) gm/dL Hct 30.2 L 29.0 L (34.0-46.0) % MCHC 30.5 L 29.7 L (31.0-37.0) g/dL RDW 16.6 H 16.8 H (11.5-15.5) % Lymphocytes # 0.5 L 0.9 L (1.0-4.8) k/uL Carbon Dioxide 20 L (22-30) mmol/L BUN 58 H (7-17) mg/dL Creatinine 2.03 H (0.52-1.04) mg/dL Glucose 230 H (74-99) mg/dL POC Glucose (mg/dL) (75-99) mg/dL 10/20/18 10/20/18 Range/Units 05:43 06:29 RBC (3.80-5.40) m/uL Hgb (11.4-16.0) gm/dL Hct (34.0-46.0) % MCHC (31.0-37.0) g/dL RDW (11.5-15.5) % Lymphocytes # (1.0-4.8) k/uL Carbon Dioxide (22-30) mmol/L BUN 56 H (7-17) mg/dL Creatinine 2.07 H (0.52-1.04) mg/dL Glucose 150 H (74-99) mg/dL POC Glucose (mg/dL) 138 H (75-99) mg/dL Thrombosis Risk Factor Assmnt - DVT/VTE Prophylaxis DVT/VTE Prophylaxis: Pharmacologic Prophylaxis ordered, Mechanical Prophylaxis ordered - Choose All That Apply Any of the Below Risk Factors Present?: Yes Each Factor Represents 1 point: Obesity (BMI >25), Swollen legs (current) Other Risk Factors: Yes Each Risk Factor Represents 2 Points: Age 61-74 years Other congenital or acquired thrombophilia - If yes, enter type in comment: No Thrombosis Risk Factor Assessment Total Risk Factor Score: 4 Thrombosis Risk Factor Assessment Level: Moderate Risk Assessment and Plan Plan: 1 acute diastolic CHF exacerbation presenting with dyspnea on exertionPND clinical findings shows severe pulmonary hypertension EF 65%, severe LA severe MR and severe TR,trace pleural effusion, possible bilateral lobe pneumonia, also with severe pulmonary hypertension, patient currently is on IV Lasix 40 mg every 8 hours, patient also will be seen consultation by Dr. ELISABETH Ahmadi from cardiology, and Dr. Mays from pulmonary medicine. Patient would also need a sleep study to be done as an outpatient pneumonia is less likely, she did not have leukocytosis no neutrophil shift, we would monitor her for her pulmonary status, IV antibiotic currently not initiated, continue to monitor as well 2 CAD: With multiple coronary artery disease patent lesion in the RCA with stent , 1 in the LAD and one in the circumflex which Dr. Ahmadi has done an angioplasty and stent placement successfully most recent stent November 2016.and resolution of priorpseudoaneurysm 3. Severe pulmonary hypertension, underlying obesity hypoventilation syndrome is suspected as well, patient will be on IV diuretics at this time, consult pulmonary, and would need outpatient sleep study 4 chronic kidney disease stage III post kidney transplant 2004, patient is still seen nephrology regular basis which will be followed daily with repeat BUN /creatinine. Sodium bicarb, Lasix IV every 8 hours 6. diabetes mellitus type 2 complications: Patient is on insulin pump at home continue Accu-Chek with sliding scales coverage a 7. hyperlipidemia: On Lipitor 20 mg daily. 8. GERD: Patient is on Zantac or H2 jai and doing well. 9. post renal transplant: Patient to continue CellCept 750 mg orally twice a day along with Prograf 2 mg twice a day and prednisone 5 mg daily. 10. hypertension: Continue atenolol 100 mg daily. Norvasc was discontinued. 7. Severe valvular disease with moderate to severe tricuspid regurgitation, moderate MR no aortic stenosis moderate MR with moderate mitral annular calcification and mitral valve thickening iron deficiency anemia with anemia of chronic disease, on further see if and Procrit injections as an outpatient last infusion was 10/07/2018 for iron infusion, last Procrit dose was October 17 DVT prophylaxis GI prophylaxis CODE STATUS: Full code.
--- NOTE | 2018-10-20 16:01 | PN ---
PROGRESS NOTE DATE OF SERVICE: 10/20/2018 at about 3:15 p.m. I went with my nurse practitioner, Shruti Quiñonez, to see the patient. The patient's was sitting in front of the door with the door closed. We introduced ourselves as the pulmonary team and we were asked to see the patient for heart failure and pulmonary hypertension. The patient's refused to allow us to go into the room, citing the fact that the patient had not slept for many hours. We again explained that we were there because of her shortness of breath and wanted to see her because of her difficulty breathing, which he agreed that she was having, but again he absolutely refused and physically prevented us from entering the room. At that point, we said okay and we just walked away. I canceled the consult, giving the reason that the patient refused, but it was actually the patient's that refused. I will not see this patient on this admission. ROS / DANIEL: [id number] / [id number]
[2018-10-20] MEDS: amLODIPine 10 MG TAB PO SCH (16:24)
[2018-10-20 16:48] LABS: Glucose,Whole Blood 363 mg/dL (75-99)
[2018-10-20 17:28] LABS: Iron Saturation 15.32 (12.00-45.00)
[2018-10-20 20:11] LABS: Glucose,Whole Blood 348 mg/dL (75-99)
[2018-10-20 22:04] LABS: Glucose,Whole Blood 288 mg/dL (75-99)
[2018-10-21 06:02] LABS: Glucose,Whole Blood 121 mg/dL (75-99)
[2018-10-21] MEDS: INSULIN PUMP MEAL BOLUS 1 UNIT MISC MISCELLANE SCH ×4 (06:06→21:51)
[2018-10-21 06:21] LABS: Anisocytosis Slight; Basophils % (A) 0 %; Eosinophils # (A) 0.2 k/uL (0-0.7); Eosinophils % (A) 4 %; HCT 27.3 % (34.0-46.0); HGB 8.2 gm/dL (11.4-16.0); Hypochromasia Marked; Lymphocytes # (A) 0.8 k/uL (1.0-4.8); Lymphocytes % (A) 15 %; MCV 96.8 fL (80.0-100.0); Macrocytosis Slight; Mean Platelet Volume 7.1; Monocytes # (A) 0.6 k/uL (0-1.0); Monocytes % (A) 11 %; Neutrophils # (A) 3.6 k/uL (1.3-7.7); Neutrophils % (A) 65 %; Platelet Count 251 k/uL (150-450); RBC 2.82 m/uL (3.80-5.40); RDW 17.2 % (11.5-15.5); WBC 5.6 k/uL (3.8-10.6)
[2018-10-21 06:38] LABS: Albumin 3.3 g/dL (3.5-5.0); Calcium 9.4 mg/dL (8.4-10.2); Potassium 4.2 mmol/L (3.5-5.1); Total Bilirubin 0.4 mg/dL (0.2-1.3); Total Protein 5.7 g/dL (6.3-8.2)
[2018-10-21] MEDS: ALBUTEROL NEBULIZED 2.5 MG/3 ML INHALATION PRN ×3 (08:38→20:30)
[2018-10-21] MEDS: MAGNESIUM OXIDE 400 MG TAB PO SCH (08:52)
[2018-10-21] MEDS: FUROSEMIDE 10 MG/ML 4 ML VIAL IV SCH (08:52)
[2018-10-21] MEDS: ACETAMINOPHEN TAB 500 MG TAB PO PRN ×2 (08:52→21:56)
[2018-10-21] MEDS: ASCORBIC ACID 500 MG TAB PO SCH (08:52)
[2018-10-21] MEDS: FAMOTIDINE 20 MG TAB PO SCH (08:52)
[2018-10-21] MEDS: hydrALAZINE HCL 50 MG TAB PO SCH ×3 (08:53→21:49)
[2018-10-21] MEDS: CARVEDILOL 12.5 MG TAB PO SCH ×2 (08:53→21:49)
[2018-10-21] MEDS: predniSONE 5 MG TAB PO SCH (08:53)
[2018-10-21] MEDS: ASPIRIN 81 MG PO SCH (08:53)
[2018-10-21] MEDS: FERROUS SULFATE 325 MG TAB PO SCH (08:53)
[2018-10-21] MEDS: amLODIPine 10 MG TAB PO SCH (08:53)
[2018-10-21] MEDS: TACROLIMUS 1 MG CAP PO SCH ×2 (08:53→21:50)
[2018-10-21] MEDS: MYCOPHENOLATE MOFETIL 250 MG CAP PO SCH ×2 (08:53→21:50)
[2018-10-21] MEDS: MULTIVITAMINS, THERA 1 EACH TAB PO SCH (08:53)
[2018-10-21] MEDS: NITROGLYCERIN OINT 1 INCH/GM PACKET TOPICAL SCH ×4 (08:57→21:49)
[2018-10-21] MEDS: LIDOCAINE 5% PATCH TOPICAL SCH (08:57)
[2018-10-21] MEDS: ATORVASTATIN 40 MG TAB PO SCH (08:57)
[2018-10-21 12:00] LABS: Glucose,Whole Blood 159 mg/dL (75-99)
[2018-10-21] MEDS: METOLAZONE 2.5 MG TAB PO SCH (12:53)
--- NOTE | 2018-10-21 13:38 | P.PN ---
Subjective Progress Note Date: 10/21/18 This is a 66-year-old pleasant female patient of Dr. Cordova , she has underlying past medical history for diabetes mellitus on insulin pump, CAD, GERD , hyperlipidemia, hypertension, end-stage renal disease status post renal transplant 2004 at [facility] and follows every 6 months. patient also has chronic anemia requiring Procrit as well as iron infusion by Dr. Hussein, known CAD for which she underwent cardiac cath May [address] ELISABETH Ahmadi, requiring PTCA and stenting of the mid circumflex, she presented to the emergency room secondary to 3 day duration of shortness of breath which is worse with laying down and ambulation, no chest pain patient also has increasing lower extremity edema, patient denies any fever no chills, denies any sick contacts. Patient hasn't slept well for the past 3 days secondary to the shortness of breath. she comes in with acute diastolic CHF exacerbation with significant peripheral edema , In the emergency room, EKG shows normal sinus rhythm with no acute changes, she is satting 90% on 3 L nasal cannula, hemoglobin 9.2, creatinine 2.0, BUN 56, BNP 1670, patient was started on IV Lasix. Echocardiogram performed this morning showing EF 65-70%, LA severely dilated over 40, no aortic stenosis, moderate MR, mitral valve severely thickened, moderate to severe tricuspid regurgitation, severe pulmonary hypertension, tract and declares systolic pressure of 77, no pericardial effusion. Patient does not have any history of sleep studies in the past however the mentions that she is a snorer consult was made with cardiology, and Dr. Mays from pulmonary medicine patient is currently on IV Lasix 40 mg every 8 hours O2 supplementation, renal consultation secondary to the history of renal transplant 10/21, patient is diuresing better today, still edematous, however less swollen leg 2+ edema, no anasarca, appetite is okay, no aspirrative events, patient was not seen by pulmonary secondary to the refusing evaluation as the patient needs her rest it sleep study discussed, to be done as an outpatient, continue on IV Lasix at this time, possible discharge Wednesday Objective - Vital Signs Vital signs: Vital Signs Temp 97.9 F 10/21/18 08:00 Pulse 81 10/21/18 08:51 Resp 18 10/21/18 08:00 BP 149/67 10/21/18 08:00 Pulse Ox 94 L 10/21/18 08:00 Intake & Output 10/20/18 10/21/18 10/21/18 18:59 06:59 18:59 Intake Total 270 692 250 Output Total 875 Balance 270 -183 250 Weight 95.3 kg 95.9 kg Intake: IV 30 30 10 Invasive Line 1 30 30 10 Oral 240 662 240 Output: Urine 875 Other: Voiding Method Toilet Toilet # Voids 1 # Bowel Movements 1 - Constitutional General appearance: Present: cooperative, obese - EENT Eyes: Present: anicteric sclerae, EOMI, dentition normal, normal appearance ENT: Present: NA/AT, normal oropharynx - Neck Neck: Present: normal ROM - Respiratory Respiratory: bilateral: CTA, negative: diminished, dullness, rales - Cardiovascular Rhythm: regular Heart sounds: normal: S1, S2 Abnormal Heart Sounds: Absent: systolic murmur, diastolic murmur, rub, S3 Gallop , S4 Gallop, click, other - Gastrointestinal General gastrointestinal: Present: normal bowel sounds, soft - Integumentary Integumentary: Present: decreased turgor, normal - Neurologic Neurologic: Present: CNII-XII intact - Musculoskeletal Musculoskeletal: Present: gait normal, strength equal bilaterally - Psychiatric Psychiatric: Present: A&O x's 3, appropriate affect - Labs CBC & Chem 7: 10/21/18 05:26 10/21/18 05:26 Labs: Abnormal Lab Results - Last 24 Hours (Table) 10/20/18 10/20/18 10/20/18 Range/Units 05:43 16:46 20:10 RBC (3.80-5.40) m/uL Hgb (11.4-16.0) gm/dL Hct (34.0-46.0) % MCHC (31.0-37.0) g/dL RDW (11.5-15.5) % Lymphocytes # (1.0-4.8) k/uL BUN (7-17) mg/dL Creatinine (0.52-1.04) mg/dL Glucose (74-99) mg/dL POC Glucose (mg/dL) 363 H 348 H (75-99) mg/dL Iron 34 L (50-170) ug/dL TIBC 222 L (228-460) ug/dL Total Protein (6.3-8.2) g/dL Albumin (3.5-5.0) g/dL 10/20/18 10/21/18 10/21/18 Range/Units 22:02 05:26 05:26 RBC 2.82 L (3.80-5.40) m/uL Hgb 8.2 L (11.4-16.0) gm/dL Hct 27.3 L (34.0-46.0) % MCHC 30.0 L (31.0-37.0) g/dL RDW 17.2 H (11.5-15.5) % Lymphocytes # 0.8 L (1.0-4.8) k/uL BUN 59 H (7-17) mg/dL Creatinine 2.20 H (0.52-1.04) mg/dL Glucose 102 H (74-99) mg/dL POC Glucose (mg/dL) 288 H (75-99) mg/dL Iron (50-170) ug/dL TIBC (228-460) ug/dL Total Protein 5.7 L (6.3-8.2) g/dL Albumin 3.3 L (3.5-5.0) g/dL 10/21/18 10/21/18 Range/Units 06:00 11:25 RBC (3.80-5.40) m/uL Hgb (11.4-16.0) gm/dL Hct (34.0-46.0) % MCHC (31.0-37.0) g/dL RDW (11.5-15.5) % Lymphocytes # (1.0-4.8) k/uL BUN (7-17) mg/dL Creatinine (0.52-1.04) mg/dL Glucose (74-99) mg/dL POC Glucose (mg/dL) 121 H 159 H (75-99) mg/dL Iron (50-170) ug/dL TIBC (228-460) ug/dL Total Protein (6.3-8.2) g/dL Albumin (3.5-5.0) g/dL Assessment and Plan Plan: 1 acute diastolic CHF exacerbation presenting with dyspnea on exertionPND clinical findings shows severe pulmonary hypertension EF 65%, severe TN severe MR and severe TR,trace pleural effusion, possible bilateral lobe pneumonia, also with severe pulmonary hypertension, patient currently is on IV Lasix 40 mg every 8 hours, patient also will be seen consultation by Dr. ELISABETH Ahmadi from cardiology, and Dr. Mays from pulmonary medicine. Patient would also need a sleep study to be done as an outpatient pneumonia is less likely, she did not have leukocytosis no neutrophil shift, we would monitor her for her pulmonary status, IV antibiotic currently not initiated, continue to monitor as well most likely to transition to oral Lasix in a.m. 2 CAD: With multiple coronary artery disease patent lesion in the RCA with stent , 1 in the LAD and one in the circumflex which Dr. Ahmadi has done an angioplasty and stent placement successfully most recent stent November 2016.and resolution of priorpseudoaneurysm 3. Severe pulmonary hypertension, underlying obesity hypoventilation syndrome is suspected as well, patient will be on IV diuretics at this time, consult pulmonary, and would need outpatient sleep study 4 chronic kidney disease stage III post kidney transplant 2004, patient is still seen nephrology regular basis which will be followed daily with repeat BUN /creatinine. Sodium bicarb, Lasix IV every 8 hours 6. diabetes mellitus type 2 complications: Patient is on insulin pump at home continue Accu-Chek with sliding scales coverage a 7. hyperlipidemia: On Lipitor 20 mg daily. 8. GERD: Patient is on Zantac or H2 jai and doing well. 9. post renal transplant: Patient to continue CellCept 750 mg orally twice a day along with Prograf 2 mg twice a day and prednisone 5 mg daily. 10. hypertension: Continue atenolol 100 mg daily. Norvasc was discontinued. 11 Severe valvular disease with moderate to severe tricuspid regurgitation, moderate MR no aortic stenosis moderate MR with moderate mitral annular calcification and mitral valve thickening 12 iron deficiency anemia with anemia of chronic disease, on further see if and Procrit injections as an outpatient last infusion was 10/07/2018 for iron infusion, last Procrit dose was October 17 DVT prophylaxis GI prophylaxis CODE STATUS: Full code.
[2018-10-21] MEDS: FUROSEMIDE 10 MG/ML 10 ML VIAL IV SCH ×2 (16:28→23:42)
[2018-10-21 16:49] LABS: Glucose,Whole Blood 152 mg/dL (75-99)
--- NOTE | 2018-10-21 17:02 | PN ---
PROGRESS NOTE Mrs. Red is a lady with CAD and prior PCI. She also has significant pulmonary hypertension. She is on IV Lasix. She is feeling better, breathing easier. Edema has improved. Vitals are stable. JVD is evident but less apparent. S1-S2 heard normally. Short systolic murmur noted. Lungs reveal improved air entry. Abdomen is soft. Lower extremity edema has improved. I am recommending that we continue the current IV Lasix regimen and current medications and see how she does, and maybe we can switch to oral Lasix tomorrow. MMODL / IJN: [id number] /
--- NOTE | 2018-10-21 18:29 | PN ---
PROGRESS NOTE Patient is seen for followup for chronic kidney disease, fluid overload. The patient was admitted to the hospital with increased lower extremity edema and some shortness of breath. She is maintained on IV push Lasix. Her weight is down. However, I am not sure if this is accurate. Anrdif-jzii-bixr urine output is documented at only 875 mL. Overall, patient states she is feeling slightly better. PHYSICAL EXAMINATION: Blood pressure was 122/68, heart rate 70 per minute. Patient is afebrile. Examination of the heart S1, S2. Examination of lungs bilateral breath sounds are heard. Abdomen is soft, nontender, obese. Examination lower extremity shows bilateral extremities to be wrapped. [employer] exam is grossly intact. LAB: Show sodium 138, potassium 4.2, BUN 59, serum creatinine 2.2, hemoglobin 8.2 g/dL, albumin 3.3. ASSESSMENT: 1. 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 Renal function close to baseline. 2. Status post living unrelated renal transplant at [facility] in 2004. Continue with current immunosuppressive therapy. 3. Hypertension. Partly volume sensitive, currently improved. 4. Anemia of chronic disease maintained on Aranesp. 5. Moderate concentric LVH with severely dilated left atrium. 6. Severe pulmonary hypertension. PLAN: Increase Lasix to 60 mg q8 hours. Add small dose of Zaroxolyn. Monitor urine output accurately. Continue daily weights. Repeat labs in a.m. MMODL / IJN: [id number] /
[2018-10-21 20:44] LABS: Glucose,Whole Blood 179 mg/dL (75-99)
[2018-10-22] MEDS: ALBUTEROL NEBULIZED 2.5 MG/3 ML INHALATION PRN (00:30)
[2018-10-22 07:13] LABS: Anisocytosis Slight; HGB 8.5 gm/dL (11.4-16.0); Hypochromasia Marked; MCH 29.3 pg (25.0-35.0); MCHC 30.4 g/dL (31.0-37.0); MCV 96.5 fL (80.0-100.0); Macrocytosis Slight; Mean Platelet Volume 6.7; Platelet Count 275 k/uL (150-450); RDW 17.2 % (11.5-15.5); WBC 5.9 k/uL (3.8-10.6)
[2018-10-22 07:19] LABS: Albumin 3.3 g/dL (3.5-5.0); Calcium 9.2 mg/dL (8.4-10.2); Potassium 3.7 mmol/L (3.5-5.1); Total Bilirubin 0.5 mg/dL (0.2-1.3); Total Protein 5.7 g/dL (6.3-8.2)
[2018-10-22] MEDS: INSULIN PUMP MEAL BOLUS 1 UNIT MISC MISCELLANE SCH ×4 (07:21→21:35)
[2018-10-22 09:13] LABS: Basophils # (M) 0.06 k/uL (0-0.2); Eosinophils # (M) 0.06 k/uL (0-0.7); Lymphocytes # (M) 1.12 k/uL (1.0-4.8); Monocytes # (M) 0.71 k/uL (0-1.0); Neutrophils # (M) 3.95 k/uL (1.3-7.7); Neutrophils % (M) 67 %; Nucleated Red Blood Cells 0 /100 WBC (0-0); Total Cells Counted 100
[2018-10-22] MEDS: FUROSEMIDE 10 MG/ML 10 ML VIAL IV SCH (10:13)
[2018-10-22] MEDS: hydrALAZINE HCL 50 MG TAB PO SCH ×3 (10:14→21:38)
[2018-10-22] MEDS: ATORVASTATIN 40 MG TAB PO SCH (10:14)
[2018-10-22] MEDS: MULTIVITAMINS, THERA 1 EACH TAB PO SCH (10:14)
[2018-10-22] MEDS: amLODIPine 10 MG TAB PO SCH (10:14)
[2018-10-22] MEDS: CARVEDILOL 12.5 MG TAB PO SCH ×2 (10:14→21:35)
[2018-10-22] MEDS: FERROUS SULFATE 325 MG TAB PO SCH (10:14)
[2018-10-22] MEDS: FAMOTIDINE 20 MG TAB PO SCH (10:15)
[2018-10-22] MEDS: ASPIRIN 81 MG PO SCH (10:15)
[2018-10-22] MEDS: ASCORBIC ACID 500 MG TAB PO SCH (10:15)
[2018-10-22] MEDS: predniSONE 5 MG TAB PO SCH (10:15)
[2018-10-22] MEDS: MYCOPHENOLATE MOFETIL 250 MG CAP PO SCH ×2 (10:16→21:36)
[2018-10-22] MEDS: NITROGLYCERIN OINT 1 INCH/GM PACKET TOPICAL SCH ×4 (10:16→21:38)
[2018-10-22] MEDS: METOLAZONE 2.5 MG TAB PO SCH (10:17)
[2018-10-22] MEDS: LIDOCAINE 5% PATCH TOPICAL SCH (10:17)
[2018-10-22] MEDS: TACROLIMUS 1 MG CAP PO SCH ×2 (10:17→21:38)
[2018-10-22] MEDS: FUROSEMIDE 80 MG TAB PO SCH ×3 (10:25→21:38)
--- NOTE | 2018-10-22 11:50 | PN ---
PROGRESS NOTE Patient is seen for followup for chronic kidney disease, acute kidney injury and volume overload. Her Lasix was increased yesterday. However, it does not appear that urine output was accurately charted again. Overall, patient states she is feeling better. This morning, blood pressure was 132/69, heart rate 66 per minute. She is afebrile. Examination of the heart S1, S2. Examination of the lungs bilateral breath sounds are heard. Abdomen is soft, nontender. Examination lower extremity shows decreasing edema. LABS: Show sodium 138, potassium 3.7, chloride 104, BUN 58, serum creatinine 2.34, hemoglobin 8.5 g/dL. ASSESSMENT: 1. Acute kidney injury mainly cardiorenal associated with recent diuresis. I will continue with diuretics. Lasix has been changed to p.o. We will need to closely monitor her urine output. Continue with the Zaroxolyn as well. 2. Hypertension currently controlled. 3. Status post living unrelated kidney transplant with baseline creatinine around 2 mg/dL. PLAN: Accurate I and Os. Continue with current dose of diuretics. Repeat labs in a.m. MMODL / IJN: [id number] /
--- NOTE | 2018-10-22 12:38 | P.PN ---
Subjective This is a 66-year-old pleasant female patient of Dr. Cordova , she has underlying past medical history for diabetes mellitus on insulin pump, CAD, GERD , hyperlipidemia, hypertension, end-stage renal disease status post renal transplant 2004 at [facility] and follows every 6 months. patient also has chronic anemia requiring Procrit as well as iron infusion by Dr. Hussein, known CAD for which she underwent cardiac cath May [address] ELISABETH Ahmadi, requiring PTCA and stenting of the mid circumflex, she presented to the emergency room secondary to 3 day duration of shortness of breath which is worse with laying down and ambulation, no chest pain patient also has increasing lower extremity edema, patient denies any fever no chills, denies any sick contacts. Patient hasn't slept well for the past 3 days secondary to the shortness of breath. she comes in with acute diastolic CHF exacerbation with significant peripheral edema , In the emergency room, EKG shows normal sinus rhythm with no acute changes, she is satting 90% on 3 L nasal cannula, hemoglobin 9.2, creatinine 2.0, BUN 56, BNP 1670, patient was started on IV Lasix. Echocardiogram performed this morning showing EF 65-70%, LA severely dilated over 40, no aortic stenosis, moderate MR, mitral valve severely thickened, moderate to severe tricuspid regurgitation, severe pulmonary hypertension, tract and declares systolic pressure of 77, no pericardial effusion. Patient does not have any history of sleep studies in the past however the mentions that she is a snorer consult was made with cardiology, and Dr. Mays from pulmonary medicine patient is currently on IV Lasix 40 mg every 8 hours O2 supplementation, renal consultation secondary to the history of renal transplant 10/21, patient is diuresing better today, still edematous, however less swollen leg 2+ edema, no anasarca, appetite is okay, no aspirrative events, patient was not seen by pulmonary secondary to the refusing evaluation as the patient needs her rest it sleep study discussed, to be done as an outpatient, continue on IV Lasix at this time, possible discharge Monday 10/22: Patient evaluated today noted to be sitting up in bedside chair. Lower extremities still edematous with +2 edema, she is down 2 kg from admission weight. IV Lasix was changed to by mouth, continues on matolazone. Patient 96 % on supplemental oxygen, will obtain walking pulse ox to assess for the need of home oxygen. Objective - Vital Signs Vital signs: Vital Signs Temp 98.7 F 10/22/18 07:00 Pulse 66 10/22/18 07:00 Resp 16 10/22/18 07:15 BP 132/69 10/22/18 07:00 Pulse Ox 95 10/22/18 09:15 Intake & Output 10/21/18 10/22/18 10/22/18 18:59 06:59 18:59 Intake Total 645 118 Balance 645 118 Intake: IV 40 Invasive Line 1 40 Oral 605 118 Other: Voiding Method Toilet Toilet Toilet - Exam - Constitutional General appearance: Present: cooperative, obese - EENT Eyes: Present: anicteric sclerae, EOMI, dentition normal, normal appearance ENT: Present: NA/AT, normal oropharynx - Neck Neck: Present: normal ROM - Respiratory Respiratory: bilateral: CTA, negative: diminished, dullness, rales - Cardiovascular Rhythm: regular Heart sounds: normal: S1, S2 Abnormal Heart Sounds: Absent: systolic murmur, diastolic murmur, rub, S3 Gallop , S4 Gallop, click, other - Gastrointestinal General gastrointestinal: Present: normal bowel sounds, soft - Integumentary Integumentary: Present: decreased turgor, normal - Neurologic Neurologic: Present: CNII-XII intact - Musculoskeletal Musculoskeletal: Present: gait normal, strength equal bilaterally - Psychiatric Psychiatric: Present: A&O x's 3, appropriate affect - Labs CBC & Chem 7: 10/22/18 06:31 10/22/18 06:31 Labs: Abnormal Lab Results - Last 24 Hours (Table) 10/21/18 10/21/18 10/22/18 Range/Units 16:32 20:33 06:31 RBC 2.90 L (3.80-5.40) m/uL Hgb 8.5 L (11.4-16.0) gm/dL Hct 28.0 L (34.0-46.0) % MCHC 30.4 L (31.0-37.0) g/dL RDW 17.2 H (11.5-15.5) % BUN (7-17) mg/dL Creatinine (0.52-1.04) mg/dL Glucose (74-99) mg/dL POC Glucose (mg/dL) 152 H 179 H (75-99) mg/dL Total Protein (6.3-8.2) g/dL Albumin (3.5-5.0) g/dL 10/22/18 Range/Units 06:31 RBC (3.80-5.40) m/uL Hgb (11.4-16.0) gm/dL Hct (34.0-46.0) % MCHC (31.0-37.0) g/dL RDW (11.5-15.5) % BUN 58 H (7-17) mg/dL Creatinine 2.34 H (0.52-1.04) mg/dL Glucose 103 H (74-99) mg/dL POC Glucose (mg/dL) (75-99) mg/dL Total Protein 5.7 L (6.3-8.2) g/dL Albumin 3.3 L (3.5-5.0) g/dL Assessment and Plan Plan: 1 acute diastolic CHF exacerbation presenting with dyspnea on exertion, PND clinical findings shows severe pulmonary hypertension EF 65%, severe VT severe MR and severe TR, trace pleural effusion, possible bilateral lobe pneumonia, also with severe pulmonary hypertension, patient currently is on IV Lasix 40 mg every 8 hours, patient also will be seen consultation by Dr. ELISABETH Ahmadi from cardiology, and Dr. Mays from pulmonary medicine. Patient would also need a sleep study to be done as an outpatient, pneumonia is less likely, she did not have leukocytosis no neutrophil shift, we would monitor her for her pulmonary status, IV antibiotic currently not initiated, continue to monitor as well most Lasix transitioned to oral. 2 CAD: With multiple coronary artery disease patent lesion in the RCA with stent , 1 in the LAD and one in the circumflex which Dr. Ahmadi has done an angioplasty and stent placement successfully most recent stent November 2016.and resolution of priorpseudoaneurysm 3. Severe pulmonary hypertension, underlying obesity hypoventilation syndrome is suspected as well, patient will be on IV diuretics at this time, consult pulmonary, and would need outpatient sleep study 4 chronic kidney disease stage III post kidney transplant 2004, patient is still seen nephrology regular basis which will be followed daily with repeat BUN /creatinine. Sodium bicarb, Lasix IV every 8 hours 6. diabetes mellitus type 2 complications: Patient is on insulin pump at home continue Accu-Chek with sliding scales coverage a 7. hyperlipidemia: On Lipitor 20 mg daily. 8. GERD: Patient is on Zantac or H2 jai and doing well. 9. post renal transplant: Patient to continue CellCept 750 mg orally twice a day along with Prograf 2 mg twice a day and prednisone 5 mg daily. 10. hypertension: Continue atenolol 100 mg daily. Norvasc was discontinued. 11 Severe valvular disease with moderate to severe tricuspid regurgitation, moderate MR no aortic stenosis moderate MR with moderate mitral annular calcification and mitral valve thickening 12 iron deficiency anemia with anemia of chronic disease, on further see if and Procrit injections as an outpatient last infusion was 10/07/2018 for iron infusion, last Procrit dose was October 17 DVT prophylaxis GI prophylaxis CODE STATUS: Full code. The above impression and plan of care have been discussed and directed by signing physician. Jenniffer White nurse practitioner acting as scribe for signing physician.
[2018-10-22] MEDS ORDERED: MAG HYDROX/AL HYDROX/SIMETH 30 ML CUP PO PRN (18:13)
[2018-10-22 20:24] LABS: Glucose,Whole Blood 370 mg/dL (75-99)
[2018-10-23] MEDS: ACETAMINOPHEN TAB 500 MG TAB PO PRN ×2 (00:46→09:10)
[2018-10-23 07:06] LABS: Anisocytosis Slight; HCT 28.3 % (34.0-46.0); HGB 8.7 gm/dL (11.4-16.0); Hypochromasia Moderate; MCH 29.2 pg (25.0-35.0); MCHC 30.8 g/dL (31.0-37.0); MCV 94.7 fL (80.0-100.0); Mean Platelet Volume 6.7; Platelet Count 256 k/uL (150-450); RBC 2.99 m/uL (3.80-5.40); RDW 17.1 % (11.5-15.5); WBC 5.7 k/uL (3.8-10.6)
[2018-10-23 07:16] LABS: Glucose,Whole Blood 122 mg/dL (75-99)
[2018-10-23 07:23] LABS: Eosinophils # (M) 0.11 k/uL (0-0.7); Lymphocytes # (M) 0.74 k/uL (1.0-4.8); Monocytes # (M) 1.37 k/uL (0-1.0); Neutrophils # (M) 3.48 k/uL (1.3-7.7); Neutrophils % (M) 61 %; Nucleated Red Blood Cells 0 /100 WBC (0-0); Total Cells Counted 100
[2018-10-23] MEDS: hydrALAZINE HCL 50 MG TAB PO SCH ×2 (09:09→17:08)
[2018-10-23] MEDS: METOLAZONE 2.5 MG TAB PO SCH (09:09)
[2018-10-23] MEDS: TACROLIMUS 1 MG CAP PO SCH (09:10)
[2018-10-23] MEDS: ASCORBIC ACID 500 MG TAB PO SCH (09:10)
[2018-10-23] MEDS: FAMOTIDINE 20 MG TAB PO SCH (09:11)
[2018-10-23] MEDS: FERROUS SULFATE 325 MG TAB PO SCH (09:11)
[2018-10-23] MEDS: MAGNESIUM OXIDE 400 MG TAB PO SCH (09:11)
[2018-10-23] MEDS: predniSONE 5 MG TAB PO SCH (09:11)
[2018-10-23] MEDS: CARVEDILOL 12.5 MG TAB PO SCH (09:11)
[2018-10-23] MEDS: ATORVASTATIN 40 MG TAB PO SCH (09:11)
[2018-10-23] MEDS: amLODIPine 10 MG TAB PO SCH (09:11)
[2018-10-23] MEDS: ASPIRIN 81 MG PO SCH (09:11)
[2018-10-23] MEDS: FUROSEMIDE 80 MG TAB PO SCH ×2 (09:11→17:08)
[2018-10-23] MEDS: MULTIVITAMINS, THERA 1 EACH TAB PO SCH (09:12)
[2018-10-23] MEDS: MYCOPHENOLATE MOFETIL 250 MG CAP PO SCH (09:12)
[2018-10-23] MEDS: INSULIN PUMP MEAL BOLUS 1 UNIT MISC MISCELLANE SCH ×3 (09:13→18:00)
[2018-10-23] MEDS: NITROGLYCERIN OINT 1 INCH/GM PACKET TOPICAL SCH ×3 (09:13→18:42)
[2018-10-23 11:52] LABS: Glucose,Whole Blood 109 mg/dL (75-99)
[2018-10-23 12:13] VITALS: RESP 16
--- NOTE | 2018-10-23 12:14 | XR ---
EXAMINATION TYPE: XR chest 2V DATE OF EXAM: 10/23/2018 COMPARISON: Chest x-ray from 4 days ago. HISTORY: Shortness of breath TECHNIQUE: Frontal and lateral views of the chest are obtained. FINDINGS: There is persisting cardiomegaly with small to moderate-sized left greater than right pleu ral effusions and associated bibasilar atelectasis and/or infiltrate. Upper lungs remain clear witho ut pneumothorax. The osseous structures are intact. IMPRESSION: Cardiomegaly with small to moderate-sized bilateral pleural effusions, left greater than right and associated bibasilar atelectasis and/or infiltrate. No significant change from prior.
[2018-10-23 12:16] LABS: Anisocytosis Slight; Basophils % (A) 1 %; Eosinophils # (A) 0.2 k/uL (0-0.7); Eosinophils % (A) 3 %; HCT 28.5 % (34.0-46.0); HGB 8.8 gm/dL (11.4-16.0); Hypochromasia Moderate; Lymphocytes # (A) 0.7 k/uL (1.0-4.8); Lymphocytes % (A) 11 %; MCH 29.1 pg (25.0-35.0); MCHC 30.7 g/dL (31.0-37.0); MCV 94.8 fL (80.0-100.0); Mean Platelet Volume 6.9; Monocytes # (A) 0.7 k/uL (0-1.0); Monocytes % (A) 11 %; Neutrophils # (A) 4.4 k/uL (1.3-7.7); Neutrophils % (A) 71 %; Platelet Count 252 k/uL (150-450); RBC 3.01 m/uL (3.80-5.40); WBC 6.2 k/uL (3.8-10.6)
[2018-10-23 12:33] LABS: Albumin 3.6 g/dL (3.5-5.0); Calcium 9.4 mg/dL (8.4-10.2); Potassium 3.8 mmol/L (3.5-5.1); Total Bilirubin 0.4 mg/dL (0.2-1.3); Total Protein 5.9 g/dL (6.3-8.2)
--- NOTE | 2018-10-23 13:57 | P.PN ---
Subjective This is a 66-year-old pleasant female patient of Dr. Cordova , she has underlying past medical history for diabetes mellitus on insulin pump, CAD, GERD , hyperlipidemia, hypertension, end-stage renal disease status post renal transplant 2004 at [facility] and follows every 6 months. patient also has chronic anemia requiring Procrit as well as iron infusion by Dr. Hussein, known CAD for which she underwent cardiac cath May [address] ELISABETH Ahmadi, requiring PTCA and stenting of the mid circumflex, she presented to the emergency room secondary to 3 day duration of shortness of breath which is worse with laying down and ambulation, no chest pain patient also has increasing lower extremity edema, patient denies any fever no chills, denies any sick contacts. Patient hasn't slept well for the past 3 days secondary to the shortness of breath. she comes in with acute diastolic CHF exacerbation with significant peripheral edema , In the emergency room, EKG shows normal sinus rhythm with no acute changes, she is satting 90% on 3 L nasal cannula, hemoglobin 9.2, creatinine 2.0, BUN 56, BNP 1670, patient was started on IV Lasix. Echocardiogram performed this morning showing EF 65-70%, LA severely dilated over 40, no aortic stenosis, moderate MR, mitral valve severely thickened, moderate to severe tricuspid regurgitation, severe pulmonary hypertension, tract and declares systolic pressure of 77, no pericardial effusion. Patient does not have any history of sleep studies in the past however the mentions that she is a snorer consult was made with cardiology, and Dr. Mays from pulmonary medicine patient is currently on IV Lasix 40 mg every 8 hours O2 supplementation, renal consultation secondary to the history of renal transplant 10/21, patient is diuresing better today, still edematous, however less swollen leg 2+ edema, no anasarca, appetite is okay, no aspirrative events, patient was not seen by pulmonary secondary to the refusing evaluation as the patient needs her rest it sleep study discussed, to be done as an outpatient, continue on IV Lasix at this time, possible discharge Monday 10/22: Patient evaluated today noted to be sitting up in bedside chair. Lower extremities still edematous with +2 edema, she is down 2 kg from admission weight. IV Lasix was changed to by mouth, continues on matolazone. Patient 96 % on supplemental oxygen, will obtain walking pulse ox to assess for the need of home oxygen. 10/23: Patient evaluated today, walking pulse ox was noted to be 83%, will arrange for home oxygen 2 L via nasal cannula. Vital signs remain stable, creatinine 2.7, BUN 69. Repeat chest x-ray shows cardiomegaly with small to moderate-sized bilateral pleural effusions, left greater than the right, no significant change from prior exam. Will continue with Lasix Objective - Vital Signs Vital signs: Vital Signs Temp 98.6 F 10/23/18 07:11 Pulse 68 10/23/18 07:11 Resp 16 10/23/18 12:13 BP 153/61 10/23/18 07:11 Pulse Ox 94 L 10/23/18 12:13 Intake & Output 10/22/18 10/23/18 10/23/18 18:59 06:59 18:59 Intake Total 236 1225 Output Total 1175 1800 Balance 236 50 -1800 Intake: Oral 236 1225 Output: Urine 1175 1800 Other: Voiding Method Toilet Toilet Toilet # Voids 1 2 2 - Exam - Constitutional General appearance: Present: cooperative, obese - EENT Eyes: Present: anicteric sclerae, EOMI, dentition normal, normal appearance ENT: Present: NA/AT, normal oropharynx - Neck Neck: Present: normal ROM - Respiratory Respiratory: bilateral: CTA, negative: diminished, dullness, rales - Cardiovascular Rhythm: regular Heart sounds: normal: S1, S2 Abnormal Heart Sounds: Absent: systolic murmur, diastolic murmur, rub, S3 Gallop , S4 Gallop, click, other - Gastrointestinal General gastrointestinal: Present: normal bowel sounds, soft - Integumentary Integumentary: Present: decreased turgor, normal - Neurologic Neurologic: Present: CNII-XII intact - Musculoskeletal Musculoskeletal: Present: gait normal, strength equal bilaterally - Psychiatric Psychiatric: Present: A&O x's 3, appropriate affect - Labs CBC & Chem 7: 10/23/18 11:35 10/23/18 11:35 Labs: Abnormal Lab Results - Last 24 Hours (Table) 10/22/18 10/23/18 10/23/18 Range/Units 20:23 06:13 07:04 RBC 2.99 L (3.80-5.40) m/uL Hgb 8.7 L (11.4-16.0) gm/dL Hct 28.3 L (34.0-46.0) % MCHC 30.8 L (31.0-37.0) g/dL RDW 17.1 H (11.5-15.5) % Lymphocytes # (1.0-4.8) k/uL Lymphocytes # (Manual) 0.74 L (1.0-4.8) k/uL Monocytes # (Manual) 1.37 H (0-1.0) k/uL BUN (7-17) mg/dL Creatinine (0.52-1.04) mg/dL POC Glucose (mg/dL) 370 H 122 H (75-99) mg/dL Total Protein (6.3-8.2) g/dL 10/23/18 10/23/18 10/23/18 Range/Units 11:35 11:35 11:41 RBC 3.01 L (3.80-5.40) m/uL Hgb 8.8 L (11.4-16.0) gm/dL Hct 28.5 L (34.0-46.0) % MCHC 30.7 L (31.0-37.0) g/dL RDW 17.0 H (11.5-15.5) % Lymphocytes # 0.7 L (1.0-4.8) k/uL Lymphocytes # (Manual) (1.0-4.8) k/uL Monocytes # (Manual) (0-1.0) k/uL BUN 69 H (7-17) mg/dL Creatinine 2.72 H (0.52-1.04) mg/dL POC Glucose (mg/dL) 109 H (75-99) mg/dL Total Protein 5.9 L (6.3-8.2) g/dL Assessment and Plan Plan: 1 acute diastolic CHF exacerbation presenting with dyspnea on exertion, PND clinical findings shows severe pulmonary hypertension EF 65%, severe CT severe MR and severe TR, trace pleural effusion, possible bilateral lobe pneumonia, also with severe pulmonary hypertension, patient currently is on IV Lasix 40 mg every 8 hours, patient also will be seen consultation by Dr. ELISABETH Ahmadi from cardiology, and Dr. Mays from pulmonary medicine. Patient would also need a sleep study to be done as an outpatient, pneumonia is less likely, she did not have leukocytosis no neutrophil shift, we would monitor her for her pulmonary status, IV antibiotic currently not initiated, continue to monitor as well most Lasix transitioned to oral. 2 CAD: With multiple coronary artery disease patent lesion in the RCA with stent , 1 in the LAD and one in the circumflex which Dr. Ahmadi has done an angioplasty and stent placement successfully most recent stent November 2016.and resolution of priorpseudoaneurysm 3. Severe pulmonary hypertension, underlying obesity hypoventilation syndrome is suspected as well, patient will be on IV diuretics at this time, consult pulmonary, and would need outpatient sleep study 4 chronic kidney disease stage III post kidney transplant 2004, patient is still seen nephrology regular basis which will be followed daily with repeat BUN /creatinine. Sodium bicarb, Lasix IV every 8 hours 6. diabetes mellitus type 2 complications: Patient is on insulin pump at home continue Accu-Chek with sliding scales coverage a 7. hyperlipidemia: On Lipitor 20 mg daily. 8. GERD: Patient is on Zantac or H2 jai and doing well. 9. post renal transplant: Patient to continue CellCept 750 mg orally twice a day along with Prograf 2 mg twice a day and prednisone 5 mg daily. 10. hypertension: Continue atenolol 100 mg daily. Norvasc was discontinued. 11 Severe valvular disease with moderate to severe tricuspid regurgitation, moderate MR no aortic stenosis moderate MR with moderate mitral annular calcification and mitral valve thickening 12 iron deficiency anemia with anemia of chronic disease, on further see if and Procrit injections as an outpatient last infusion was 10/07/2018 for iron infusion, last Procrit dose was October 17 DVT prophylaxis GI prophylaxis CODE STATUS: Full code. The above impression and plan of care have been discussed and directed by signing physician. Jenniffer Whtie nurse practitioner acting as scribe for signing physician.
[2018-10-23] MEDS: LIDOCAINE 5% PATCH TOPICAL SCH (14:02)
[2018-10-23 20:22] VITALS: BP 145/68; PULSE 78; TEMP 98.1
--- NOTE | 2018-10-23 23:58 | PN ---
PROGRESS NOTE Patient is seen for followup for acute kidney injury and fluid overload. She was maintained on IV Lasix, was switched to p.o. diuretics yesterday. Overall, patient states she is feeling better. I do not see a weight for the last 2 days. Patient is going for a chest x-ray today. There are plans for possible discharge today. EXAMINATION: Blood pressure this morning was 153/61, heart rate 67 per minute. Patient is afebrile. Examination of the heart S1, S2. Examination lungs bilateral breath sounds are heard. Abdomen is soft, nontender, obese. Examination lower extremity shows edema 2+ bilaterally. PAN PULLER exam is grossly intact. LAB: Show sodium of 137, potassium 3.8, serum creatinine at 2.7 mg/dL, hemoglobin of 8.8 g/dL. ASSESSMENT: 1. Acute kidney injury, mainly cardiorenal. Serum creatinine slightly higher today. The patient was switched over to oral diuretics yesterday. This will need to be followed up as outpatient. There is no evidence of urine retention. I will continue with the oral Lasix for now. We need to check a weight today. 2. Anemia with no active bleeding noted, maintained on Aranesp. 3. Fluid overload with diastolic heart failure, status post IV diuretics, currently on oral Lasix. If the patient does not get discharged, and if her weight is increasing, we may need to switch back to IV diuretics. Her chest x-ray is about the same. 4. Hypertension. Blood pressure had been on the lower side. Medications were decreased. Continue with the current dose of antihypertensive medications. The Norvasc and hydralazine will both cause lower extremity edema. We need to consider switching to other agents as outpatient. 5. Status post living unrelated renal transplant at [facility] in 2004. Continue current immunosuppressive medications. Check Prograf level in a.m. 6. 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 PLAN: Check weight today. Follow up on results of chest x-ray. We may need to switch back to IV diuretics if her weight continues to increase. Clinically, patient states she is feeling better, therefore, she could be discharged with close followup as outpatient. MMODL / IJN: [id number] /
[2018-10-24] MEDS ORDERED: DARBEPOETIN ALFA 25 MCG/0.42 ML SYRINGE SQ SCH (09:00)
[2018-10-24] MEDS ORDERED: DARBEPOETIN ALFA 40 MCG/0.4 ML SYRINGE SQ SCH (09:00)
== END 2018-10-23 20:07 | disposition home health service (06) | DRG 291 ==
LOC: EC 17:06 → 3SCARD 20:29 → 4SSUR 10-21 19:20
PROVIDERS: ADMIT Family Medicine; ATTEND Family Medicine
DX: I13.2 Hypertensive heart and chronic kidney disease with heart failure and with stage 5 chronic kidney disease, or end stage renal disease (principal); I50.33 Acute on chronic diastolic (congestive) heart failure; N17.9 Acute kidney failure, unspecified; E66.2 Morbid (severe) obesity with alveolar hypoventilation; T86.19 Other complication of kidney transplant; Z94.0 Kidney transplant status; N18.4 Chronic kidney disease, stage 4 (severe); D50.9 Iron deficiency anemia, unspecified; D63.8 Anemia in other chronic diseases classified elsewhere; E11.22 Type 2 diabetes mellitus with diabetic chronic kidney disease; E78.5 Hyperlipidemia, unspecified; I08.3 Combined rheumatic disorders of mitral, aortic and tricuspid valves; I25.10 Atherosclerotic heart disease of native coronary artery without angina pectoris; I27.20 Pulmonary hypertension, unspecified; K21.9 Gastro-esophageal reflux disease without esophagitis; Z79.4 Long term (current) use of insulin; Z79.899 Other long term (current) drug therapy; Z82.49 Family history of ischemic heart disease and other diseases of the circulatory system; Z95.5 Presence of coronary angioplasty implant and graft; Z96.41 Presence of insulin pump (external) (internal); Z79.82 Long term (current) use of aspirin; Z88.2 Allergy status to sulfonamides; Z88.8 Allergy status to other drugs, medicaments and biological substances; Z91.030 Bee allergy status; Z98.42 Cataract extraction status, left eye; Z98.41 Cataract extraction status, right eye
CPT/HCPCS: 36415; 71046; 80048; 80053; 82550; 82553; 83036; 83540; 83550; 83880; 84484; 85025; 85610; 85730; 93005; 93306; 94640; 94760; 96374; 99285

== ENCOUNTER → 2018-10-31 | Outpatient (CLI) | payer MEDICARE ==
[2018-10-31 16:33] LABS: Albumin 4.1 g/dL (3.80-4.90); Albumin/Globulin Ratio 2.56 (1.20-2.10); Anion Gap 11.2 mmol/L (4.00-12.00); Calcium 9.2 mg/dL (8.7-10.3); Carbon Dioxide 29.8 mmol/L (21.6-31.8); Globulin 1.6 g/dL (1.6-3.3); Potassium 3.6 mmol/L (3.5-5.5); Total Bilirubin 0.5 mg/dL (0.3-1.2); Total Protein 5.7 g/dL (6.2-8.2)
== END ==
LOC: LABWHC1 11:22
PROVIDERS: ATTEND Internal Medicine
DX: N18.4 Chronic kidney disease, stage 4 (severe) (principal)
CPT/HCPCS: 36415; 80053

== ENCOUNTER → 2018-11-08 | Outpatient (CLI) | payer MEDICARE ==
[2018-11-09 03:15] LABS: Albumin 4.2 g/dL (3.80-4.90); Albumin/Globulin Ratio 2.33 (1.20-2.10); Calcium 9.3 mg/dL (8.7-10.3); Globulin 1.8 g/dL (1.6-3.3); Total Bilirubin 0.4 mg/dL (0.2-1.2)
== END | disposition home or self-care (01) ==
LOC: LABWHC1 15:54
PROVIDERS: ATTEND Internal Medicine Geriatric Medicine
DX: N17.9 Acute kidney failure, unspecified (principal)
CPT/HCPCS: 36415; 80053

== ENCOUNTER 2018-11-23 17:15 | Inpatient (IN) | payer MEDICARE ==
[2018-11-23] MEDS ORDERED: SODIUM CHLORIDE 0.9% 1,000 ML IV STA (18:18)
[2018-11-23 18:48] LABS: Basophils % (A) 0 %; Eosinophils # (A) 0.1 k/uL (0-0.7); Eosinophils % (A) 1 %; HCT 27.2 % (34.0-46.0); HGB 8.5 gm/dL (11.4-16.0); Hypochromasia Slight; Lymphocytes # (A) 0.6 k/uL (1.0-4.8); Lymphocytes % (A) 8 %; MCH 28.3 pg (25.0-35.0); MCHC 31.2 g/dL (31.0-37.0); MCV 90.8 fL (80.0-100.0); Mean Platelet Volume 6.8; Monocytes # (A) 0.5 k/uL (0-1.0); Monocytes % (A) 7 %; Neutrophils # (A) 6.1 k/uL (1.3-7.7); Neutrophils % (A) 82 %; Platelet Count 240 k/uL (150-450); RDW 15.7 % (11.5-15.5); WBC 7.5 k/uL (3.8-10.6)
[2018-11-23 18:58] LABS: Albumin 4.2 g/dL (3.5-5.0); Magnesium 3.3 mg/dL (1.6-2.3); Potassium 4.6 mmol/L (3.5-5.1); Total Bilirubin 0.7 mg/dL (0.2-1.3); Total Protein 6.8 g/dL (6.3-8.2)
[2018-11-23 19:05] LABS: Creatine Kinase 65 U/L (30-135)
[2018-11-23 19:13] LABS: Partial Thromboplastin Time 23.9 sec (22.0-30.0); Prothrombin Time 10.3 sec (9.0-12.0)
[2018-11-23 19:18] LABS: Creatine Kinase MB 0.7 ng/mL (0.0-2.4); Troponin I <0.012 ng/mL (0.000-0.034)
--- NOTE | 2018-11-23 20:20 | XR ---
EXAMINATION: XR chest 2V DATE AND TIME: 11/23/2018 7:35 PM CLINICAL INDICATION: PHH; difficulty breathing TECHNIQUE: Departmental protocol COMPARISON: 10/23/2018 FINDINGS: There is moderate enlargement of the cardiac silhouette. There are prominent bilateral pleural effusions, greater on the left. There is associated passive atelectasis of the lower lobes bilaterally, greater on the left. The upper and mid lung zone pulmonary vasculature is moderately silhouetted by a fine reticular patte rn of increased attenuation with areas of alveolar space consolidative opacity. There is no pneumothorax. No mediastinal shift. No acute skeletal or soft tissue findings. IMPRESSION: RADIOGRAPHIC FINDINGS CONSISTENT WITH MARKED CARDIOGENIC PULMONARY EDEMA WITH PROMINENT PLEURAL EFFUS IONS AND ATELECTASIS OF THE LOWER LOBES, GREATER ON THE LEFT.
[2018-11-23] MEDS ORDERED: NITROGLYCERIN OINT 1 INCH/GM PACKET TOPICAL STA (20:24)
--- NOTE | 2018-11-23 20:25 | ED ---
SOB HPI - General Source: patient, RN notes reviewed, old records reviewed Mode of arrival: ambulatory Limitations: no limitations <Elizabeth Perez - Last Filed: 11/23/18 20:48> <Oscar Mcneal - Last Filed: 11/23/18 21:00> - General Chief Complaint: Shortness of Breath Stated Complaint: LOW OXYGEN Time Seen by Provider: 11/23/18 18:14 - History of Present Illness Initial Comments: 60-year-old female with a history of chronic kidney disease, history of renal transplant, CHF presents emergency department today for complaints of worsening difficulty breathing. Patient states that her oxygen levels have been dipping to the low 70s with exertion. She denies associated chest pain. She's had a nonproductive cough. She did see her route aide yesterday who is managing her Lasix and fluid overload. Patient states that she has had to use her oxygen up to 3 L to get her up to 90%. She typically uses 1 L of supplemental oxygen. Patient states that she has had no fevers or chills. She denies any nausea or vomiting. She does have chronic leg swelling and edema but they state that it has not been sick fairly worse over the past few days. (Elizabeth Perez) - Related Data Home Medications Medication Instructions Recorded Confirmed Ascorbic Acid [Vitamin C] 500 mg PO DAILY 04/09/15 11/23/18 Aspirin EC [Ecotrin Low Dose] 81 mg PO DAILY 04/09/15 11/23/18 Tacrolimus [Prograf] 3 mg PO QAM 04/09/15 11/23/18 predniSONE 5 mg PO DAILY 04/09/15 11/23/18 Multivit-Min/Iron/Folic/Lutein 1 tab PO DAILY 03/04/16 11/23/18 [Centrum Silver Women Tablet] Nitroglycerin Sl Tabs [Nitrostat] 0.4 mg SUBLINGUAL Q5M PRN 03/04/16 11/23/18 Vitamin B Complex 1 cap PO DAILY 03/04/16 11/23/18 Albuterol Inhaler [Ventolin Hfa 2 puff INHALATION RT-Q4H PRN 09/16/16 11/23/18 Inhaler] Glucagon Emergency Kit 1 mg IM DIRECTED PRN 09/16/16 11/23/18 INSULIN LISPRO (For Pump) [humaLOG 0.01 units SQ-PUMP CONTINUOUS PRN 11/26/16 (For Pump)] Biotin 5,000 mcg PO DAILY 06/09/17 11/23/18 Ranitidine HCl [Zantac] 150 mg PO DAILY 06/09/17 11/23/18 Ubidecarenone [Coenzyme Q10] 100 mg PO DAILY 06/09/17 11/23/18 Tacrolimus [Prograf] 2 mg PO HS 03/17/18 11/23/18 Acetaminophen [Tylenol] 500 mg PO Q8H PRN 10/19/18 11/23/18 Atorvastatin [Lipitor] 40 mg PO DAILY 10/19/18 11/23/18 Bisacodyl [Dulcolax] 10 mg PO DAILY PRN 10/19/18 11/23/18 Carvedilol [Coreg] 12.5 mg PO BID 10/19/18 11/23/18 Darbepoetin Naveed [Aranesp] 25 mcg SQ Q7D 10/19/18 11/23/18 Docusate [Colace] 100 mg PO BID PRN 10/19/18 11/23/18 Ferrous Sulfate [Feosol] 325 mg PO DAILY 10/19/18 11/23/18 Lidocaine 5% Patch [Lidoderm 5% 1 patch TRANSDERM DAILY 10/19/18 11/23/18 Patch] Magnesium Oxide [Mag-Ox] 250 mg PO Q48H 10/19/18 11/23/18 Mycophenolate Mofetil [Cellcept] 750 mg PO BID 10/19/18 11/23/18 Ondansetron [Zofran ODT] 8 mg SL Q8HR PRN 10/19/18 11/23/18 Phenyleph/Pramoxin/Glycr/W.pet 1 dose RECTAL BID PRN 10/19/18 11/23/18 [Preparation H Cream] hydrALAZINE HCL [Apresoline] 100 mg PO TID 10/19/18 11/23/18 amLODIPine [Norvasc] 10 mg PO DAILY 10/20/18 11/23/18 Furosemide [Lasix] 40 mg PO DAILY 11/23/18 11/23/18 Metolazone [Zaroxolyn] 2.5 mg PO Q48H 11/23/18 11/23/18 Sennosides [Senna] 8.6 mg PO BID PRN 11/23/18 11/23/18 Allergies Allergy/AdvReac Type Severity Reaction Status Date / Time Sulfa (Sulfonamide Allergy Rash/Hives Verified 11/23/18 19:32 Antibiotics) vancomycin Allergy Rash/Hives Verified 11/23/18 19:32 venom-honey bee Allergy Swelling Verified 11/23/18 19:32 [bee venom (honey bee)] metoprolol tartrate AdvReac Confusion Verified 11/23/18 19:32 [From Lopressor] Review of Systems ROS Other: All systems not noted in ROS Statement are negative. <Elizabeth Perez - Last Filed: 11/23/18 20:48> ROS Other: All systems not noted in ROS Statement are negative. <Oscar Mcneal - Last Filed: 11/23/18 21:00> ROS Statement: Those systems with pertinent positive or pertinent negative responses have been documented in the HPI. Past Medical History Past Medical History: Coronary Artery Disease (CAD), Diabetes Mellitus, Hyperlipidemia, Hypertension, Renal Disease Additional Past Medical History / Comment(s): Chronic renal disease stage III with previous renal transplant, chronic anemia, IDDM with insulin pump, gluten free diet, neuropathy. Stenosis, DDD of back, States abnormal stress test. [facility] History of Any Multi-Drug Resistant Organisms: None Reported Past Surgical History: Section, Heart Catheterization, Heart Catheterization With Stent, Orthopedic Surgery Additional Past Surgical History / Comment(s): 2005 Kidney transplant at [facility] , bilateral cataracts, retinal peeling in left eye, L achilles tendon repair , L upper arm dialysis fistula, has a total of 4cardiac stents, 2 c/s. Past Anesthesia/Blood Transfusion Reactions: Motion Sickness, Postoperative Nausea & Vomiting (PONV) Additional Past Anesthesia/Blood Transfusion Reaction / Comment(s): PONV after C /S Date of Last Stent Placement:: 2016. Past Psychological History: No Psychological Hx Reported Smoking Status: Never smoker Past Alcohol Use History: Rare Past Drug Use History: Marijuana - Past Family History Father Family Medical History: Myocardial Infarction ([place]) Additional Family Medical History / Comment(s): Father at age 70 from myocardial infarction Mother Family Medical History: Cancer Additional Family Medical History / Comment(s): Mother at age 86 from pneumonia. Sister(s) Family Medical History: Cancer Additional Family Medical History / Comment(s): . <Elizabeth Perez - Last Filed: 11/23/18 20:48> General Exam Limitations: no limitations General appearance: alert, in no apparent distress Head exam: Present: atraumatic, normocephalic, normal inspection Eye exam: Present: normal appearance, PERRL, EOMI. Absent: scleral icterus, conjunctival injection, periorbital swelling ENT exam: Present: normal exam, mucous membranes moist Neck exam: Present: normal inspection. Absent: tenderness, meningismus, lymphadenopathy Respiratory exam: Present: decreased breath sounds (left lung sound decreased. ) , other (Persued breathing). Absent: normal lung sounds bilaterally, respiratory distress, wheezes, rales, rhonchi, stridor Cardiovascular Exam: Present: regular rate, normal rhythm, normal heart sounds. Absent: systolic murmur, diastolic murmur, rubs, gallop, clicks GI/Abdominal exam: Present: soft, normal bowel sounds. Absent: distended, tenderness, guarding, rebound, rigid Extremities exam: Present: normal inspection, full ROM, normal capillary refill , other (bilateral peripheral edema, 4 plus pedal edema. Blister over R heel). Absent: tenderness, pedal edema, joint swelling, calf tenderness Back exam: Present: normal inspection Neurological exam: Present: alert, oriented X3, CN II-XII intact Psychiatric exam: Present: normal affect, normal mood Skin exam: Present: warm, dry, intact, normal color. Absent: rash <Elizabeth Perez - Last Filed: 11/23/18 20:48> <Oscar Mcneal - Last Filed: 11/23/18 21:00> - General Exam Comments Initial Comments: 58-year-old female. Alert and oriented 3. (Elizabeth Perez) Course <Elizabeth Perez - Last Filed: 11/23/18 20:48> <Oscar Mcneal - Last Filed: 11/23/18 21:00> Vital Signs 11/23/18 17:19 Temperature 97.9 F Pulse Rate 81 Respiratory 18 Rate Blood Pressure 173/74 O2 Sat by Pulse 96 Oximetry - Reevaluation(s) Reevaluation #1: 11/23/18 20:59 Patient reevaluated by myself, Dr. Mcneal. Patient resting comfortably in bed. Chest x-ray with CHF. Lung sounds also diminishing with rales. Patient and family updated on results and plan. Case discussed in detail with Dr. Pineda, covering for Dr. Cordova, who will admit. I did review and agree with PA findings. This includes all diagnostic interpretations and treatment plan. ( Oscar Mcneal) Medical Decision Making - Lab Data Result diagrams: 11/23/18 17:55 11/23/18 17:55 - Radiology Data Radiology results: report reviewed <Elizabeth Perez - Last Filed: 11/23/18 20:48> - Lab Data Result diagrams: 11/23/18 17:55 11/23/18 17:55 <Oscar Mcneal - Last Filed: 11/23/18 21:00> - Medical Decision Making 60-year-old female history of chronic kidney disease diabetes and CHF presents returns with worsening shortness of breath. Patient has severely decreased lung sounds over the left lung base. She's been having to use us to 3 L of oxygen which he typically uses 1 L of oxygen. Her oxygen saturations in the low 90s. Patient does have bilateral pedal edema. Chest x-ray shows evidence of increased pleural effusions think cardio upon or edema. She is started on IV Lasix and given Nitropaste. She doesn't she has some pursed lip breathing. I did discuss the possibility of eventually started the Patient on BiPAP. Patient's white blood cell count is within normal limits hemoglobin is 8.5. This is stable from previous. BUN is a 7 creatinine is 2.31. The GFR is 21. Patient's troponin is negative. BNP is 1630. I did discuss the case with Dr. Mcneal who will discuss case with PCP. Patient will be admitted at this time with consults to cardiology and nephrology. (Elizabeth Perez) - Lab Data Lab Results 11/23/18 11/23/18 11/23/18 Range/Units 17:55 17:55 17:55 WBC 7.5 (3.8-10.6) k/uL RBC 3.00 L (3.80-5.40) m/uL Hgb 8.5 L (11.4-16.0) gm/dL Hct 27.2 L (34.0-46.0) % MCV 90.8 (80.0-100.0) fL MCH 28.3 (25.0-35.0) pg MCHC 31.2 (31.0-37.0) g/dL RDW 15.7 H (11.5-15.5) % Plt Count 240 (150-450) k/uL Neutrophils % 82 % Lymphocytes % 8 % Monocytes % 7 % Eosinophils % 1 % Basophils % 0 % Neutrophils # 6.1 (1.3-7.7) k/uL Lymphocytes # 0.6 L (1.0-4.8) k/uL Monocytes # 0.5 (0-1.0) k/uL Eosinophils # 0.1 (0-0.7) k/uL Basophils # 0.0 (0-0.2) k/uL Hypochromasia Slight PT (9.0-12.0) sec INR (<1.2) APTT (22.0-30.0) sec Sodium 136 L (137-145) mmol/L Potassium 4.6 (3.5-5.1) mmol/L Chloride 98 (98-107) mmol/L Carbon Dioxide 27 (22-30) mmol/L Anion Gap 11 mmol/L BUN 87 H (7-17) mg/dL Creatinine 2.31 H (0.52-1.04) mg/dL Est GFR (CKD-EPI)AfAm 24 (>60 ml/min/1.73 sqM) Est GFR (CKD-EPI)NonAf 21 (>60 ml/min/1.73 sqM) Glucose 164 H (74-99) mg/dL Calcium 10.0 (8.4-10.2) mg/dL Magnesium 3.3 H (1.6-2.3) mg/dL Total Bilirubin 0.7 (0.2-1.3) mg/dL AST 43 H (14-36) U/L ALT 35 (9-52) U/L Alkaline Phosphatase 75 (38-126) U/L Total Creatine Kinase 65 (30-135) U/L CK-MB (CK-2) 0.7 (0.0-2.4) ng/mL CK-MB (CK-2) Rel Index 1.1 Troponin I <0.012 (0.000-0.034) ng/mL NT-Pro-B Natriuret Pep pg/mL Total Protein 6.8 (6.3-8.2) g/dL Albumin 4.2 (3.5-5.0) g/dL 11/23/18 11/23/18 Range/Units 17:55 17:55 WBC (3.8-10.6) k/uL RBC (3.80-5.40) m/uL Hgb (11.4-16.0) gm/dL Hct (34.0-46.0) % MCV (80.0-100.0) fL MCH (25.0-35.0) pg MCHC (31.0-37.0) g/dL RDW (11.5-15.5) % Plt Count (150-450) k/uL Neutrophils % % Lymphocytes % % Monocytes % % Eosinophils % % Basophils % % Neutrophils # (1.3-7.7) k/uL Lymphocytes # (1.0-4.8) k/uL Monocytes # (0-1.0) k/uL Eosinophils # (0-0.7) k/uL Basophils # (0-0.2) k/uL Hypochromasia PT 10.3 (9.0-12.0) sec INR 1.0 (<1.2) APTT 23.9 (22.0-30.0) sec Sodium (137-145) mmol/L Potassium (3.5-5.1) mmol/L Chloride (98-107) mmol/L Carbon Dioxide (22-30) mmol/L Anion Gap mmol/L BUN (7-17) mg/dL Creatinine (0.52-1.04) mg/dL Est GFR (CKD-EPI)AfAm (>60 ml/min/1.73 sqM) Est GFR (CKD-EPI)NonAf (>60 ml/min/1.73 sqM) Glucose (74-99) mg/dL Calcium (8.4-10.2) mg/dL Magnesium (1.6-2.3) mg/dL Total Bilirubin (0.2-1.3) mg/dL AST (14-36) U/L ALT (9-52) U/L Alkaline Phosphatase (38-126) U/L Total Creatine Kinase (30-135) U/L CK-MB (CK-2) (0.0-2.4) ng/mL CK-MB (CK-2) Rel Index Troponin I (0.000-0.034) ng/mL NT-Pro-B Natriuret Pep 1630 pg/mL Total Protein (6.3-8.2) g/dL Albumin (3.5-5.0) g/dL 11/23/18 20:52 EKG performed at 1752 shows normal sinus rhythm left axis deviation. Anterolateral infarct age undetermined. Abnormal EKG. Ventricular rate 79 bpm period. Intervals 170 ms. QRS duration is 114 ms. QT QTc is 44/463 ms. ( Elizabeth Perez) - Radiology Data Radiographic findings this is with cardiogenic pulmonary edema with prominent pleural effusions atelectasis in the lower lobes. Greater on the left. ( Elizabeth Perez) Disposition Is patient prescribed a controlled substance at d/c from ED?: No Time of Disposition: 20:54 <Elizabeth Perez - Last Filed: 11/23/18 20:48> <Oscar Mcneal - Last Filed: 11/23/18 21:00> Clinical Impression: Dyspnea, CHF (congestive heart failure), Pleural effusion Disposition: ADMITTED IP TO THIS HOSP Condition: Stable Referrals: Refugio Cordova MD [Primary Care Provider] - 1-2 days
[2018-11-23] MEDS: FUROSEMIDE 10 MG/ML 4 ML VIAL IV SCH (21:06)
[2018-11-23] MEDS ORDERED: [UNRECOGNIZED DRUG - OTHER] RECTAL PRN (22:40)
[2018-11-23] MEDS ORDERED: BISACODYL 5 MG TABLET.DR PO PRN (22:40)
[2018-11-23] MEDS ORDERED: SENNOSIDES 8.6 MG TAB PO PRN (22:40)
[2018-11-23] MEDS ORDERED: NITROGLYCERIN SL TABS 0.4 MG TAB SUBLINGUAL PRN (22:40)
[2018-11-23] MEDS ORDERED: INSULIN LISPRO (For Pump) 100 UNIT/ML VIAL SQ-PUMP PRN (22:40)
[2018-11-23 22:46] LABS: Glucose,Whole Blood 164 mg/dL (75-99)
[2018-11-23] MEDS ORDERED: TACROLIMUS 1 MG CAP PO SCH (23:00)
[2018-11-23] MEDS ORDERED: MYCOPHENOLATE MOFETIL 250 MG CAP PO SCH (23:00)
[2018-11-23] MEDS: TACROLIMUS 1 MG CAP PO SCH (23:27)
[2018-11-23] MEDS: MYCOPHENOLATE MOFETIL 250 MG CAP PO SCH (23:27)
[2018-11-23] MEDS: hydrALAZINE HCL 50 MG TAB PO SCH (23:27)
[2018-11-24] MEDS: ALBUTEROL NEBULIZED 2.5 MG/3 ML INHALATION PRN ×4 (03:26→19:28)
[2018-11-24 03:49] LABS: Hemoglobin A1C 6.2 % (4.0-6.0)
[2018-11-24 04:27] LABS: Glucose,Whole Blood 140 mg/dL (75-99)
[2018-11-24] MEDS: FUROSEMIDE 10 MG/ML 4 ML VIAL IV SCH (04:36)
[2018-11-24 07:08] LABS: Glucose,Whole Blood 123 mg/dL (75-99)
--- NOTE | 2018-11-24 07:36 | XR ---
EXAMINATION TYPE: XR chest 1V DATE OF EXAM: 11/24/2018 COMPARISON: 11/23/2018 INDICATION: Short of breath TECHNIQUE: Single frontal view of the chest is obtained. FINDINGS: The heart size is somewhat prominent. The pulmonary vasculature is prominent. Bibasilar infiltrates are present. Small right and moderate left pleural effusions are present. IMPRESSION: 1. Clinical correlation recommended for congestive heart failure. 2. Findings are similar to comparison.
[2018-11-24] MEDS: MAGNESIUM OXIDE 400 MG TAB PO SCH (08:54)
[2018-11-24] MEDS: hydrALAZINE HCL 50 MG TAB PO SCH ×3 (08:56→21:04)
[2018-11-24] MEDS: FERROUS SULFATE 325 MG TAB PO SCH (08:56)
[2018-11-24] MEDS: CARVEDILOL 12.5 MG TAB PO SCH ×2 (08:56→16:49)
[2018-11-24] MEDS: ATORVASTATIN 40 MG TAB PO SCH (08:57)
[2018-11-24] MEDS: amLODIPine 10 MG TAB PO SCH (08:57)
[2018-11-24] MEDS: FAMOTIDINE 20 MG TAB PO SCH (08:57)
[2018-11-24] MEDS: ASPIRIN 81 MG PO SCH (08:58)
[2018-11-24] MEDS: ASCORBIC ACID 500 MG TAB PO SCH (08:58)
[2018-11-24] MEDS: MYCOPHENOLATE MOFETIL 250 MG CAP PO SCH ×2 (08:59→21:04)
[2018-11-24] MEDS: VIT A,C & E-LUTEIN-MINERALS 1 EACH TAB PO SCH (08:59)
[2018-11-24] MEDS: predniSONE 5 MG TAB PO SCH (09:00)
[2018-11-24] MEDS ORDERED: UBIDECARENONE 100 MG PO SCH (09:00)
[2018-11-24] MEDS ORDERED: NITROGLYCERIN OINT 1 INCH/GM PACKET TOPICAL SCH (09:00)
[2018-11-24] MEDS ORDERED: FUROSEMIDE 10 MG/ML 10 ML VIAL IV SCH (09:00)
[2018-11-24] MEDS: METOLAZONE 2.5 MG TAB PO SCH (09:00)
[2018-11-24] MEDS ORDERED: FUROSEMIDE 40 MG TAB PO SCH (09:00)
[2018-11-24] MEDS ORDERED: NON-FORMULARY DRUG (Vitamin B Complex [Vitamin B Complex] 1 CAP) PO SCH (09:00)
[2018-11-24] MEDS: TACROLIMUS 1 MG CAP PO SCH ×2 (09:01→21:04)
[2018-11-24] MEDS: LIDOCAINE 5% PATCH TOPICAL SCH (09:03)
[2018-11-24 10:40] LABS: Glucose,Whole Blood 117 mg/dL (75-99)
[2018-11-24] MEDS ORDERED: DRY MOUTH SPRAY 44.3 SPRAY/44.3 ML SPRAY MUCOUS MEM PRN (10:52)
--- NOTE | 2018-11-24 11:35 | P.NPCON ---
History of Present Illness - Reason for Consult acute renal failure, chronic renal failure - History of Present Illness Reason for consultation: Acute kidney injury on chronic kidney disease History of present illness: Patient is a 68-year-old female seen in renal consultation for acute kidney injury on chronic kidney disease. Patient has chronic kidney disease stage III with baseline creatinine in the range of 1.7-1.8. However recently her creatinine has been in the range of 2-2.3. Patient has a history of living unrelated renal transplant from [facility] since 2004. She is maintained on Prograf, CellCept and prednisone for immunosuppression. Patient presented to the hospital with dyspnea. Patient states she's been getting progressively more short of breath and developing lower extremity edema over the last 2-3 days. She was recently started on Lasix 40 mg once daily 2 days ago. She is currently on BiPAP. Chest x-ray suggestive of CHF. She has history of diastolic CHF with mild to moderate mitral stenosis, moderate to severe tricuspid regurgitation. She also has severe pulmonary hypertension. Hemodynamically stable. No fever or chills. She had an episode of vomiting this morning. No diarrhea. Admits to good urine output. No hematuria or dysuria. Vital signs are stable. General: The patient appeared well nourished and normally developed. HEENT: Head exam is unremarkable. Neck is without jugular venous distension. On BiPAP. LUNGS: Breath sounds decreased. HEART: Rate and Rhythm are regular. First and second heart sounds normal. No murmurs, rubs or gallops. ABDOMEN: Abdominal exam reveals normal bowel sounds. Non-tender and non- distended. No evidence of peritonitis. EXTREMITITES: 2+ edema. Past Medical History Past Medical History: Coronary Artery Disease (CAD), Diabetes Mellitus, Hyperlipidemia, Hypertension, Renal Disease Additional Past Medical History / Comment(s): Chronic renal disease stage III with previous renal transplant 2004 , chronic anemia, IDDM with insulin pump, gluten free diet, neuropathy. Stenosis, DDD of back, States abnormal stress test. pt had recent back surg. at [facility] Aug 09 2018 History of Any Multi-Drug Resistant Organisms: None Reported Past Surgical History: Section, Heart Catheterization, Heart Catheterization With Stent, Orthopedic Surgery Additional Past Surgical History / Comment(s): [facility] , bilateral cataracts, retinal peeling in left eye, L achilles tendon repair , L upper arm dialysis fistula, has a total of 4cardiac stents, 2 c/s. Past Anesthesia/Blood Transfusion Reactions: Motion Sickness, Postoperative Nausea & Vomiting (PONV) Additional Past Anesthesia/Blood Transfusion Reaction / Comment(s): PONV after C /S Date of Last Stent Placement:: 2016. Past Psychological History: No Psychological Hx Reported Additional Psychological History / Comment(s): . Smoking Status: Never smoker Past Alcohol Use History: Rare Additional Past Alcohol Use History / Comment(s): Patient is a lifelong nonsmoker. Uses medical marijuana occas. for pain. Drinks a glass of red wine rarely now. Past Drug Use History: Marijuana Additional Drug Use History / Comment(s): Uses the drops occas. for pain. - Past Family History Father Family Medical History: Myocardial Infarction ([place]) Additional Family Medical History / Comment(s): Father at age 70 from myocardial infarction Mother Family Medical History: Cancer Additional Family Medical History / Comment(s): Mother at age 86 from pneumonia. Sister(s) Family Medical History: Cancer Additional Family Medical History / Comment(s): . Medications and Allergies Home Medications Medication Instructions Recorded Confirmed Type Ascorbic Acid [Vitamin C] 500 mg PO DAILY 04/09/15 11/23/18 History Aspirin EC [Ecotrin Low Dose] 81 mg PO DAILY 04/09/15 11/23/18 History Tacrolimus [Prograf] 3 mg PO QAM 04/09/15 11/23/18 History predniSONE 5 mg PO DAILY 04/09/15 11/23/18 History Multivit-Min/Iron/Folic/Lutein 1 tab PO DAILY 03/04/16 11/23/18 History [Centrum Silver Women Tablet] Nitroglycerin Sl Tabs [Nitrostat] 0.4 mg SUBLINGUAL Q5M PRN 03/04/16 11/23/18 History Vitamin B Complex 1 cap PO DAILY 03/04/16 11/23/18 History Albuterol Inhaler [Ventolin Hfa 2 puff INHALATION RT-Q4H PRN 09/16/16 11/23/18 History Inhaler] Glucagon Emergency Kit 1 mg IM DIRECTED PRN 09/16/16 11/23/18 History INSULIN LISPRO (For Pump) [humaLOG 0.01 units SQ-PUMP CONTINUOUS PRN 11/26/16 History (For Pump)] Biotin 5,000 mcg PO DAILY 06/09/17 11/23/18 History Ranitidine HCl [Zantac] 150 mg PO DAILY 06/09/17 11/23/18 History Ubidecarenone [Coenzyme Q10] 100 mg PO DAILY 06/09/17 11/23/18 History Tacrolimus [Prograf] 2 mg PO HS 03/17/18 11/23/18 History Acetaminophen [Tylenol] 500 mg PO Q8H PRN 10/19/18 11/23/18 History Atorvastatin [Lipitor] 40 mg PO DAILY 10/19/18 11/23/18 History Bisacodyl [Dulcolax] 10 mg PO DAILY PRN 10/19/18 11/23/18 History Carvedilol [Coreg] 12.5 mg PO BID 10/19/18 11/23/18 History Darbepoetin Naveed [Aranesp] 25 mcg SQ Q7D 10/19/18 11/23/18 History Docusate [Colace] 100 mg PO BID PRN 10/19/18 11/23/18 History Ferrous Sulfate [Feosol] 325 mg PO DAILY 10/19/18 11/23/18 History Lidocaine 5% Patch [Lidoderm 5% 1 patch TRANSDERM DAILY 10/19/18 11/23/18 History Patch] Magnesium Oxide [Mag-Ox] 250 mg PO Q48H 10/19/18 11/23/18 History Mycophenolate Mofetil [Cellcept] 750 mg PO BID 10/19/18 11/23/18 History Ondansetron [Zofran ODT] 8 mg SL Q8HR PRN 10/19/18 11/23/18 History Phenyleph/Pramoxin/Glycr/W.pet 1 dose RECTAL BID PRN 10/19/18 11/23/18 History [Preparation H Cream] hydrALAZINE HCL [Apresoline] 100 mg PO TID 10/19/18 11/23/18 History amLODIPine [Norvasc] 10 mg PO DAILY 10/20/18 11/23/18 History Furosemide [Lasix] 40 mg PO DAILY 11/23/18 11/23/18 History Metolazone [Zaroxolyn] 2.5 mg PO Q48H 11/23/18 11/23/18 History Sennosides [Senna] 8.6 mg PO BID PRN 11/23/18 11/23/18 History Allergies Allergy/AdvReac Type Severity Reaction Status Date / Time Sulfa (Sulfonamide Allergy Rash/Hives Verified 11/23/18 19:32 Antibiotics) vancomycin Allergy Rash/Hives Verified 11/23/18 19:32 venom-honey bee Allergy Swelling Verified 11/23/18 19:32 [bee venom (honey bee)] metoprolol tartrate AdvReac Confusion Verified 11/23/18 19:32 [From Lopressor] Physical Exam Vitals: Vital Signs Temp Pulse Pulse Resp BP BP Pulse Ox 11/24/18 11:00 80 11/24/18 10:54 76 11/24/18 08:05 79 24 155/67 98 11/24/18 04:34 81 147/58 94 L 11/24/18 03:35 80 11/24/18 03:26 82 11/24/18 00:30 98.3 F 81 20 155/61 91 L 11/23/18 22:59 98.1 F 79 18 154/63 92 L 11/23/18 22:18 80 16 152/67 93 L 11/23/18 21:07 83 24 152/63 92 L 11/23/18 17:19 97.9 F 81 18 173/74 96 Intake and Output 11/23/18 11/24/18 11/24/18 22:59 06:59 14:59 Other: Voiding Method Toilet # Voids 2 Weight 89.811 kg Results - Lab Results Most recent lab results Calcium 10.0 mg/dL (8.4-10.2) 11/23/18 17:55 Magnesium 3.3 mg/dL (1.6-2.3) H 11/23/18 17:55 11/23/18 17:55 11/23/18 17:55 Assessment and Plan Plan: Assessment: 1. Acute allograft dysfunction mostly prerenal secondary to cardiorenal syndrome. Creatinine 2.31 on admission. 2. Chronic kidney disease stage III with baseline creatinine in the range of 1.7-1.8. Recently her creatinine has been in the range of 2-2.3. 3. Dyspnea secondary to volume overload. 4. Diastolic CHF with mild to moderate mitral stenosis and moderate to severe tricuspid regurgitation. 5. Severe pulmonary hypertension. 6. Anemia of chronic kidney disease. Rule out iron deficiency. 7. Status post living unrelated renal transplant from a list if [place] in 2004. Plan: Start Lasix 80 mg IV twice daily. Low-salt diet and 1500 mL fluid restriction. Maintain immunosuppression medications. Check Prograf level in the morning. Check iron studies. Add Aranesp. Repeat electrolytes in the morning. Thank you for the consultation. I will continue to follow the patient with you during her hospital stay.
[2018-11-24] MEDS: FUROSEMIDE 10 MG/ML 10 ML VIAL IV SCH ×2 (12:03→21:04)
[2018-11-24 12:42] LABS: Calcium 9.4 mg/dL (8.4-10.2); Potassium 3.9 mmol/L (3.5-5.1)
--- NOTE | 2018-11-24 13:36 | P.CRDCN ---
History of Present Illness Consult date: 11/24/18 Requesting physician: Elizabeth Perez Consult reason: congestive heart failure Chief complaint: Shortness of breath History of present illness: This is 68-year-old female patient who follows with Dr. Cordova on an outpatient basis. She is a previous history significant for coronary artery disease with stent placement, chronic diastolic heart failure, diabetes, hyperlipidemia, hypertension, and chronic kidney disease stage III with previous renal transplant. She presented to [facility] emergency room with complaints of increasing shortness of breath and peripheral edema over the last few days. She stated that she has had to increase her home oxygen use from 1 L up to 3 L. 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 Chest x- ray in the emergency room demonstrated pulmonary edema along with bilateral pleural effusions. BNP was elevated at 1630, troponin was negative, hemoglobin was 8.5, BUN was 87, creatinine 2.31. EKG demonstrated normal sinus rhythm with left axis deviation. She was admitted with congestive heart failure and acute on chronic renal failure. She was placed on BiPAP. Of note she was admitted to [facility] in October 2018 with similar symptoms. Consultation was placed for cardiology for congestive heart failure management. Review of Systems Review of systems was completed and was negative except as noted. Past Medical History Past Medical History: Coronary Artery Disease (CAD), Diabetes Mellitus, Hyperlipidemia, Hypertension, Renal Disease Additional Past Medical History / Comment(s): Chronic renal disease stage III with previous renal transplant 2004 , chronic anemia, IDDM with insulin pump, gluten free diet, neuropathy. Stenosis, DDD of back, States abnormal stress test. pt had recent back surg. at [facility] Aug 09 2018 History of Any Multi-Drug Resistant Organisms: None Reported Past Surgical History: Section, Heart Catheterization, Heart Catheterization With Stent, Orthopedic Surgery Additional Past Surgical History / Comment(s): [facility] , bilateral cataracts, retinal peeling in left eye, L achilles tendon repair , L upper arm dialysis fistula, has a total of 4cardiac stents, 2 c/s. Past Anesthesia/Blood Transfusion Reactions: Motion Sickness, Postoperative Nausea & Vomiting (PONV) Additional Past Anesthesia/Blood Transfusion Reaction / Comment(s): PONV after C /S Date of Last Stent Placement:: 2016. Past Psychological History: No Psychological Hx Reported Additional Psychological History / Comment(s): . Smoking Status: Never smoker Past Alcohol Use History: Rare Additional Past Alcohol Use History / Comment(s): Patient is a lifelong nonsmoker. Uses medical marijuana occas. for pain. Drinks a glass of red wine rarely now. Past Drug Use History: Marijuana Additional Drug Use History / Comment(s): Uses the drops occas. for pain. - Past Family History Father Family Medical History: Myocardial Infarction ([place]) Additional Family Medical History / Comment(s): Father at age 70 from myocardial infarction Mother Family Medical History: Cancer Additional Family Medical History / Comment(s): Mother at age 86 from pneumonia. Sister(s) Family Medical History: Cancer Additional Family Medical History / Comment(s): . Medications and Allergies Home Medications Medication Instructions Recorded Confirmed Type Ascorbic Acid [Vitamin C] 500 mg PO DAILY 04/09/15 11/23/18 History Aspirin EC [Ecotrin Low Dose] 81 mg PO DAILY 04/09/15 11/23/18 History Tacrolimus [Prograf] 3 mg PO QAM 04/09/15 11/23/18 History predniSONE 5 mg PO DAILY 04/09/15 11/23/18 History Multivit-Min/Iron/Folic/Lutein 1 tab PO DAILY 03/04/16 11/23/18 History [Centrum Silver Women Tablet] Nitroglycerin Sl Tabs [Nitrostat] 0.4 mg SUBLINGUAL Q5M PRN 03/04/16 11/23/18 History Vitamin B Complex 1 cap PO DAILY 03/04/16 11/23/18 History Albuterol Inhaler [Ventolin Hfa 2 puff INHALATION RT-Q4H PRN 09/16/16 11/23/18 History Inhaler] Glucagon Emergency Kit 1 mg IM DIRECTED PRN 09/16/16 11/23/18 History INSULIN LISPRO (For Pump) [humaLOG 0.01 units SQ-PUMP CONTINUOUS PRN 11/26/16 History (For Pump)] Biotin 5,000 mcg PO DAILY 06/09/17 11/23/18 History Ranitidine HCl [Zantac] 150 mg PO DAILY 06/09/17 11/23/18 History Ubidecarenone [Coenzyme Q10] 100 mg PO DAILY 06/09/17 11/23/18 History Tacrolimus [Prograf] 2 mg PO HS 03/17/18 11/23/18 History Acetaminophen [Tylenol] 500 mg PO Q8H PRN 10/19/18 11/23/18 History Atorvastatin [Lipitor] 40 mg PO DAILY 10/19/18 11/23/18 History Bisacodyl [Dulcolax] 10 mg PO DAILY PRN 10/19/18 11/23/18 History Carvedilol [Coreg] 12.5 mg PO BID 10/19/18 11/23/18 History Darbepoetin Naveed [Aranesp] 25 mcg SQ Q7D 10/19/18 11/23/18 History Docusate [Colace] 100 mg PO BID PRN 10/19/18 11/23/18 History Ferrous Sulfate [Feosol] 325 mg PO DAILY 10/19/18 11/23/18 History Lidocaine 5% Patch [Lidoderm 5% 1 patch TRANSDERM DAILY 10/19/18 11/23/18 History Patch] Magnesium Oxide [Mag-Ox] 250 mg PO Q48H 10/19/18 11/23/18 History Mycophenolate Mofetil [Cellcept] 750 mg PO BID 10/19/18 11/23/18 History Ondansetron [Zofran ODT] 8 mg SL Q8HR PRN 10/19/18 11/23/18 History Phenyleph/Pramoxin/Glycr/W.pet 1 dose RECTAL BID PRN 10/19/18 11/23/18 History [Preparation H Cream] hydrALAZINE HCL [Apresoline] 100 mg PO TID 10/19/18 11/23/18 History amLODIPine [Norvasc] 10 mg PO DAILY 10/20/18 11/23/18 History Furosemide [Lasix] 40 mg PO DAILY 11/23/18 11/23/18 History Metolazone [Zaroxolyn] 2.5 mg PO Q48H 11/23/18 11/23/18 History Sennosides [Senna] 8.6 mg PO BID PRN 11/23/18 11/23/18 History Allergies Allergy/AdvReac Type Severity Reaction Status Date / Time Sulfa (Sulfonamide Allergy Rash/Hives Verified 11/23/18 19:32 Antibiotics) vancomycin Allergy Rash/Hives Verified 11/23/18 19:32 venom-honey bee Allergy Swelling Verified 11/23/18 19:32 [bee venom (honey bee)] metoprolol tartrate AdvReac Confusion Verified 11/23/18 19:32 [From Lopressor] Physical Exam Vitals: Vital Signs Temp Pulse Pulse Resp BP BP Pulse Ox 11/24/18 11:00 80 11/24/18 10:54 76 11/24/18 08:05 79 24 155/67 98 11/24/18 04:34 81 147/58 94 L 11/24/18 03:35 80 11/24/18 03:26 82 11/24/18 00:30 98.3 F 81 20 155/61 91 L 11/23/18 22:59 98.1 F 79 18 154/63 92 L 11/23/18 22:18 80 16 152/67 93 L 11/23/18 21:07 83 24 152/63 92 L 11/23/18 17:19 97.9 F 81 18 173/74 96 Intake and Output 11/23/18 11/24/18 11/24/18 22:59 06:59 14:59 Other: Voiding Method Toilet # Voids 2 Weight 89.811 kg - Constitutional General appearance: cooperative, no acute distress, obese - EENT Eyes: PERRLA - Respiratory Lungs sounds diminished bilaterally. Respirations even, nonlabored. Currently on BiPAP with FiO2 50%, IPAP 12, EPAP 6 with oxygen saturation 98%. - Cardiovascular S1, S2 present, positive systolic murmur. Regular rate and rhythm, sinus rhythm on telemetry. Palpable peripheral pulses bilaterally. 2-3+ pitting edema to bilateral lower extremities present. No calf pain or tenderness noted. - Gastrointestinal Abdomen soft, nontender, nondistended, obese. Active bowel sounds present 4 quadrants. - Genitourinary Deferred. - Integumentary Skin is warm and dry. No open areas. - Neurologic Neurologic: CNII-XII intact - Musculoskeletal Musculoskeletal: strength equal bilaterally - Psychiatric Patient is sleeping on BiPAP but does arouse and is oriented 3. Psychiatric: appropriate affect, intact judgment & insight Results 11/23/18 17:55 11/24/18 11:41 Cardiac Enzymes 11/23/18 11/23/18 Range/Units 17:55 17:55 AST 43 H (14-36) U/L CK-MB (CK-2) 0.7 (0.0-2.4) ng/mL Troponin I <0.012 (0.000-0.034) ng/mL Coagulation 11/23/18 Range/Units 17:55 PT 10.3 (9.0-12.0) sec APTT 23.9 (22.0-30.0) sec CBC 11/23/18 Range/Units 17:55 WBC 7.5 (3.8-10.6) k/uL RBC 3.00 L (3.80-5.40) m/uL Hgb 8.5 L (11.4-16.0) gm/dL Hct 27.2 L (34.0-46.0) % Plt Count 240 (150-450) k/uL Comprehensive Metabolic Panel 11/23/18 11/24/18 Range/Units 17:55 11:41 Sodium 136 L 135 L (137-145) mmol/L Potassium 4.6 3.9 (3.5-5.1) mmol/L Chloride 98 99 (98-107) mmol/L Carbon Dioxide 27 28 (22-30) mmol/L BUN 87 H 82 H (7-17) mg/dL Creatinine 2.31 H 2.30 H (0.52-1.04) mg/dL Glucose 164 H 90 (74-99) mg/dL Calcium 10.0 9.4 (8.4-10.2) mg/dL AST 43 H (14-36) U/L ALT 35 (9-52) U/L Alkaline Phosphatase 75 (38-126) U/L Total Protein 6.8 (6.3-8.2) g/dL Albumin 4.2 (3.5-5.0) g/dL Current Medications Generic Name Dose Route Start Last Admin Trade Name Freq PRN Reason Stop Dose Admin Acetaminophen 500 mg 11/23/18 22:40 Tylenol Tab PO Q8H PRN Pain Albuterol Sulfate 2.5 mg 11/23/18 22:40 11/24/18 10:52 Ventolin Nebulized INHALATION 2.5 mg RT-Q4H PRN Administration Shortness Of Breath Amlodipine Besylate 10 mg 11/24/18 09:00 11/24/18 08:57 Norvasc PO 10 mg DAILY LAWANDA Administration Ascorbic Acid 500 mg 11/24/18 09:00 11/24/18 08:58 Vitamin C PO 500 mg DAILY LAWANDA Administration Aspirin 81 mg 11/24/18 09:00 11/24/18 08:58 Aspirin PO 81 mg DAILY [facility] Administration Atorvastatin Calcium 40 mg 11/24/18 09:00 11/24/18 08:57 Lipitor PO 40 mg DAILY [facility] Administration Bisacodyl 10 mg 11/23/18 22:40 Dulcolax PO DAILY PRN Constipation Carvedilol 12.5 mg 11/24/18 07:30 11/24/18 08:56 Coreg PO 12.5 mg BID-W/MEALS [facility] Administration Darbepoetin Naveed 25 mcg 11/25/18 09:00 Aranesp SQ Q7D [facility] Docusate Sodium 100 mg 11/23/18 22:40 Colace PO BID PRN Constipation Famotidine 20 mg 11/24/18 09:00 11/24/18 08:57 Pepcid PO 20 mg DAILY [facility] Administration Ferrous Sulfate 325 mg 11/24/18 09:00 11/24/18 08:56 Feosol PO 325 mg DAILY [facility] Administration Furosemide 80 mg 11/24/18 11:30 11/24/18 12:03 Lasix IV 80 mg Q12HR [facility] Administration Hydralazine HCl 100 mg 11/23/18 23:00 11/24/18 08:56 Apresoline PO 100 mg TID [facility] Administration Insulin Human Lispro 0.01 unit 11/23/18 22:40 Humalog (For Pump) SQ-PUMP CONTINUOUS PRN Blood Sugar - High Lidocaine 1 patch 11/24/18 09:00 11/24/18 09:03 Lidoderm TOPICAL Not Given DAILY [facility] Magnesium Oxide 200 mg 11/24/18 09:00 11/24/18 08:54 Mag-Ox PO 200 mg Q48H [facility] Administration Metolazone 2.5 mg 11/24/18 09:00 11/24/18 09:00 Zaroxolyn PO 2.5 mg Q48H [facility] Administration Multivitamins/Minerals 1 each 11/24/18 09:00 11/24/18 08:59 Ivite PO 1 each DAILY [facility] Administration Mycophenolate Mofetil 750 mg 11/23/18 23:00 11/24/18 08:59 Cellcept PO 750 mg BID [facility] Administration Nitroglycerin 0.4 mg 11/23/18 22:40 Nitrostat SUBLINGUAL Q5M PRN Chest Pain Prednisone 5 mg 11/24/18 09:00 11/24/18 09:00 PO 5 mg DAILY LAWANDA Administration Saliva Substitute 1 spray 11/24/18 10:52 Mouthkote Solution MUCOUS MEM QID PRN Dry Mouth Senna 8.6 mg 11/23/18 22:40 Senokot PO BID PRN CONSTIPATION Tacrolimus 3 mg 11/24/18 09:00 11/24/18 09:01 Prograf PO 3 mg QAM LAWANDA Administration Tacrolimus 2 mg 11/23/18 23:00 11/23/18 23:27 Prograf PO 2 mg HS LAWANDA Administration Intake and Output 11/23/18 11/24/18 11/24/18 22:59 06:59 14:59 Other: Voiding Method Toilet # Voids 2 Weight 89.811 kg 11/23/18 17:55 11/24/18 11:41 - EKG Interpretation EKG: sinus rhythm Assessment and Plan (1) Congestive heart failure Current Visit: Yes Status: Chronic Code(s): I50.9 - HEART FAILURE, UNSPECIFIED SNOMED Code(s): 70747054 (2) Dyspnea Current Visit: Yes Status: Acute Code(s): R06.00 - DYSPNEA, UNSPECIFIED SNOMED Code(s): 837098330 (3) Pleural effusion Current Visit: Yes Status: Acute Code(s): J90 - PLEURAL EFFUSION, NOT ELSEWHERE CLASSIFIED SNOMED Code(s): 33499894 (4) Acute kidney injury superimposed on chronic kidney disease Current Visit: Yes Status: Acute Code(s): N17.9 - ACUTE KIDNEY FAILURE, UNSPECIFIED; N18.9 - CHRONIC KIDNEY DISEASE, UNSPECIFIED SNOMED Code(s): 82709313 (5) Anemia Current Visit: Yes Status: Chronic Code(s): D64.9 - ANEMIA, UNSPECIFIED SNOMED Code(s): 737888721 Plan: 1. Continue aspirin, statin, beta jai therapy. 2. Continue Lasix, Zaroxolyn per nephrology recommendations. 3. BiPAP management per primary, pulmonology. 4. Last echocardiogram October 2018, no repeat necessary. 5. Heart healthy diet, sodium restriction, fluid restriction 1500 mL in 24 hours. 6. Daily weights. 7. Accurate I and O's. 8. Increase activity as tolerated. 9. Medical management of other comorbidities per primary care services. Thank you for this consult. We look forward to working with you in the care of your patient. Time with Patient: Greater than 30
--- NOTE | 2018-11-24 14:07 | P.HPIM ---
History of Present Illness H&P Date: 11/24/18 Chief Complaint: Difficulty breathing, low pulse ox This is a 68-year-old female patient of Dr. Cordova, Dr. NAINA Ahmadi, Dr. Hussein with past medical history of diabetes mellitus on insulin pump, CAD status post PTCA and stenting of mid circumflex November 2016 subsequent pseudoaneurysm with surgical repair, GERD, hyperlipidemia, hypertension, end-stage renal disease status post renal transplant in 2004 at [facility] and follows every 6 months, anemia of chronic disease. Patient has received Procrit as well as iron infusion by Dr. Hussein. Patient had a recent hospitalization at the end of October 2018 for acute diastolic heart failure. Patient's son Dr. Cordova last week and at that time her breathing was okay but over the weekend it became much more difficult and her oxygen needs increased. Patient is normally on 3 L nasal cannula and this was increased to 3-1/2 or 4 L and her saturations were not improving. She was seen by home care nurse on Wednesday and plan was to monitor. On Wednesday she was at Dr. Hussein's office and Lasix was added at 40 mg daily and metolazone on hold. Procrit infusion was to be set up. On Wednesday her home care nurse reassessed her and her pulse ox was low and they tried percussion but it did not seem to help. Patient has had no recent weight change. Patient normally runs between 195 and 198 pounds. Patient came into [facility] emergency center for evaluation. She was afebrile, heart rate 81, blood pressure 173/74, pulse ox 96%, hemoglobin 8.5, BUN 87 creatinine 2.31, blood sugar 164. Troponin negative 1. ProBNP 1630. EKG was a sinus rhythm with left axis deviation. Patient was started on IV Lasix and Nitropaste. Chest x-ray marked cardiogenic pulmonary edema with prominent pleural effusions and atelectasis of the lower lobes greater on the left. Repeat chest x-ray this morning showed heart failure similar to comparison. Echocardiogram in October revealed EF 65-70%, LA severely dilated over 40, no aortic stenosis, moderate MR, mitral valve severely thickened, moderate to severe tricuspid regurgitation, severe pulmonary hypertension. Patient does not have any history of sleep studies in the past however the mentions that she is a snorer. Consults requested with nephrology, cardiology and pulmonary medicine. Review of Systems All systems: negative Constitutional: Reports fatigue, Reports lethargy, Reports malaise, Reports weakness, Denies chills, Denies fever, Denies weight gain, Denies weight loss Eyes: denies blurred vision, denies pain Ears, nose, mouth and throat: Denies dysphagia, Denies headache, Denies hoarseness, Denies sore throat Cardiovascular: Reports decreased exercise tolerance, Reports dyspnea on exertion, Reports edema, Reports leg edema, Reports shortness of breath, Denies chest pain, Denies lightheadedness, Denies syncope Respiratory: Reports dyspnea, Reports home oxygen, Denies cough, Denies excessive sputum, Denies hemoptysis, Denies wheezing Gastrointestinal: Denies abdominal pain, Denies diarrhea, Denies melena, Denies nausea, Denies vomiting Genitourinary: Denies dysuria, Denies hematuria Musculoskeletal: Denies frequent falls, Denies gait dysfunction, Denies myalgias Integumentary: Denies pruritus, Denies rash, Denies wounds Neurological: Denies aphasia, Denies change in mentation, Denies confusion, Denies gait dysfunction, Denies head injury, Denies headaches, Denies numbness, Denies seizures, Denies weakness Psychiatric: Denies anxiety, Denies depression Endocrine: Denies fatigue, Denies weight change Past Medical History Past Medical History: Coronary Artery Disease (CAD), Diabetes Mellitus, Hyperlipidemia, Hypertension, Renal Disease Additional Past Medical History / Comment(s): Chronic renal disease stage III with previous renal transplant 2004 , chronic anemia, IDDM with insulin pump, gluten free diet, neuropathy. Stenosis, DDD of back, States abnormal stress test. pt had recent back surg. at [facility] Aug 09 2018 History of Any Multi-Drug Resistant Organisms: None Reported Past Surgical History: Section, Heart Catheterization, Heart Catheterization With Stent, Orthopedic Surgery Additional Past Surgical History / Comment(s): 2005 Kidney transplant at [facility] , bilateral cataracts, retinal peeling in left eye, L achilles tendon repair , L upper arm dialysis fistula, has a total of 4cardiac stents, 2 c/s. Past Anesthesia/Blood Transfusion Reactions: Motion Sickness, Postoperative Nausea & Vomiting (PONV) Additional Past Anesthesia/Blood Transfusion Reaction / Comment(s): PONV after C /S Date of Last Stent Placement:: 2016. Past Psychological History: No Psychological Hx Reported Additional Psychological History / Comment(s): . Smoking Status: Never smoker Past Alcohol Use History: Rare Additional Past Alcohol Use History / Comment(s): Patient is a lifelong nonsmoker. Uses medical marijuana occas. for pain. Drinks a glass of red wine rarely now. Past Drug Use History: Marijuana Additional Drug Use History / Comment(s): Uses the drops occas. for pain. - Past Family History Father Family Medical History: Myocardial Infarction ([place]) Additional Family Medical History / Comment(s): Father at age 70 from myocardial infarction Mother Family Medical History: Cancer Additional Family Medical History / Comment(s): Mother at age 86 from pneumonia. Sister(s) Family Medical History: Cancer Additional Family Medical History / Comment(s): . Medications and Allergies Home Medications Medication Instructions Recorded Confirmed Type Ascorbic Acid [Vitamin C] 500 mg PO DAILY 04/09/15 11/23/18 History Aspirin EC [Ecotrin Low Dose] 81 mg PO DAILY 04/09/15 11/23/18 History Tacrolimus [Prograf] 3 mg PO QAM 04/09/15 11/23/18 History predniSONE 5 mg PO DAILY 04/09/15 11/23/18 History Multivit-Min/Iron/Folic/Lutein 1 tab PO DAILY 03/04/16 11/23/18 History [Centrum Silver Women Tablet] Nitroglycerin Sl Tabs [Nitrostat] 0.4 mg SUBLINGUAL Q5M PRN 03/04/16 11/23/18 History Vitamin B Complex 1 cap PO DAILY 03/04/16 11/23/18 History Albuterol Inhaler [Ventolin Hfa 2 puff INHALATION RT-Q4H PRN 09/16/16 11/23/18 History Inhaler] Glucagon Emergency Kit 1 mg IM DIRECTED PRN 09/16/16 11/23/18 History INSULIN LISPRO (For Pump) [humaLOG 0.01 units SQ-PUMP CONTINUOUS PRN 11/26/16 History (For Pump)] Biotin 5,000 mcg PO DAILY 06/09/17 11/23/18 History Ranitidine HCl [Zantac] 150 mg PO DAILY 06/09/17 11/23/18 History Ubidecarenone [Coenzyme Q10] 100 mg PO DAILY 06/09/17 11/23/18 History Tacrolimus [Prograf] 2 mg PO HS 03/17/18 11/23/18 History Acetaminophen [Tylenol] 500 mg PO Q8H PRN 10/19/18 11/23/18 History Atorvastatin [Lipitor] 40 mg PO DAILY 10/19/18 11/23/18 History Bisacodyl [Dulcolax] 10 mg PO DAILY PRN 10/19/18 11/23/18 History Carvedilol [Coreg] 12.5 mg PO BID 10/19/18 11/23/18 History Darbepoetin Naveed [Aranesp] 25 mcg SQ Q7D 10/19/18 11/23/18 History Docusate [Colace] 100 mg PO BID PRN 10/19/18 11/23/18 History Ferrous Sulfate [Feosol] 325 mg PO DAILY 10/19/18 11/23/18 History Lidocaine 5% Patch [Lidoderm 5% 1 patch TRANSDERM DAILY 10/19/18 11/23/18 History Patch] Magnesium Oxide [Mag-Ox] 250 mg PO Q48H 10/19/18 11/23/18 History Mycophenolate Mofetil [Cellcept] 750 mg PO BID 10/19/18 11/23/18 History Ondansetron [Zofran ODT] 8 mg SL Q8HR PRN 10/19/18 11/23/18 History Phenyleph/Pramoxin/Glycr/W.pet 1 dose RECTAL BID PRN 10/19/18 11/23/18 History [Preparation H Cream] hydrALAZINE HCL [Apresoline] 100 mg PO TID 10/19/18 11/23/18 History amLODIPine [Norvasc] 10 mg PO DAILY 10/20/18 11/23/18 History Furosemide [Lasix] 40 mg PO DAILY 11/23/18 11/23/18 History Metolazone [Zaroxolyn] 2.5 mg PO Q48H 11/23/18 11/23/18 History Sennosides [Senna] 8.6 mg PO BID PRN 11/23/18 11/23/18 History Allergies Allergy/AdvReac Type Severity Reaction Status Date / Time Sulfa (Sulfonamide Allergy Rash/Hives Verified 11/23/18 19:32 Antibiotics) vancomycin Allergy Rash/Hives Verified 11/23/18 19:32 venom-honey bee Allergy Swelling Verified 11/23/18 19:32 [bee venom (honey bee)] metoprolol tartrate AdvReac Confusion Verified 11/23/18 19:32 [From Lopressor] Physical Exam Vitals: Vital Signs Temp Pulse Pulse Resp BP BP Pulse Ox 11/24/18 08:05 79 24 155/67 98 11/24/18 04:34 81 147/58 94 L 11/24/18 03:35 80 11/24/18 03:26 82 11/24/18 00:30 98.3 F 81 20 155/61 91 L 11/23/18 22:59 98.1 F 79 18 154/63 92 L 11/23/18 22:18 80 16 152/67 93 L 11/23/18 21:07 83 24 152/63 92 L 11/23/18 17:19 97.9 F 81 18 173/74 96 Intake and Output 11/23/18 11/24/18 11/24/18 22:59 06:59 14:59 Other: Voiding Method Toilet # Voids 2 Weight 89.811 kg Gen: This is a 68 year old obese female. She is currently on BiPAP staying in a recliner with mild to moderate respiratory distress. is at bedside and most of history is obtained from her . HEENT: Head is atraumatic, normocephalic. Pupils equal, round. Sclerae is anicteric. NECK: Supple. No JVD. No lymphadenopathy. No thyromegaly. LUNGS: Diminished bilaterally. Mild intercostal retractions. HEART: Regular rate and rhythm. Systolic murmur. ABDOMEN: Soft. Bowel sounds are present. No masses. No tenderness. EXTREMITIES: 2+ bilateral pedal edema. No calf tenderness. Dorsalis pedis +2 bilaterally. NEUROLOGICAL: Patient is awake, alert and oriented x3. Cranial nerves 2 through 12 are grossly intact. Results CBC & Chem 7: 11/23/18 17:55 11/24/18 11:41 Labs: Abnormal Lab Results - Last 24 Hours (Table) 11/23/18 11/23/18 11/23/18 Range/Units 17:55 17:55 17:55 RBC 3.00 L (3.80-5.40) m/uL Hgb 8.5 L (11.4-16.0) gm/dL Hct 27.2 L (34.0-46.0) % RDW 15.7 H (11.5-15.5) % Lymphocytes # 0.6 L (1.0-4.8) k/uL Sodium 136 L (137-145) mmol/L BUN 87 H (7-17) mg/dL Creatinine 2.31 H (0.52-1.04) mg/dL Glucose 164 H (74-99) mg/dL POC Glucose (mg/dL) (75-99) mg/dL Hemoglobin A1c 6.2 H (4.0-6.0) % Magnesium 3.3 H (1.6-2.3) mg/dL AST 43 H (14-36) U/L 11/23/18 11/24/18 11/24/18 Range/Units 22:45 04:25 07:06 RBC (3.80-5.40) m/uL Hgb (11.4-16.0) gm/dL Hct (34.0-46.0) % RDW (11.5-15.5) % Lymphocytes # (1.0-4.8) k/uL Sodium (137-145) mmol/L BUN (7-17) mg/dL Creatinine (0.52-1.04) mg/dL Glucose (74-99) mg/dL POC Glucose (mg/dL) 164 H 140 H 123 H (75-99) mg/dL Hemoglobin A1c (4.0-6.0) % Magnesium (1.6-2.3) mg/dL AST (14-36) U/L Thrombosis Risk Factor Assmnt - DVT/VTE Prophylaxis DVT/VTE Prophylaxis: Pharmacologic Prophylaxis ordered - Choose All That Apply Each Factor Represents 1 point: Obesity (BMI >25), Swollen legs (current) Each Risk Factor Represents 2 Points: Age 61-74 years Thrombosis Risk Factor Assessment Total Risk Factor Score: 4 Thrombosis Risk Factor Assessment Level: Moderate Risk Assessment and Plan Plan: 1. Acute hypoxic respiratory failure secondary to acute on chronic diastolic heart failure. Lasix increased to 80 mg IV twice daily, continue Zaroxolyn 2.5 mg every 48 hours, RAJ daily weights, Coreg 12.5 mg twice daily. Consult appreciated with nephrology, cardiology and pulmonary medicine. Monitor electrolytes and renal function. Continue O2 therapy currently on BiPAP at 50% FiO2 2. History of coronary artery disease status post stent to the RCA, LAD, circumflex care of Dr. NAINA Ahmadi. Continue aspirin 81 mg daily, Lipitor 40 mg daily, Coreg. 3. Severe pulmonary hypertension. Patient may benefit from outpatient sleep study. 4. 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 Nephrology consult appreciated. Continue Lasix, low salt diet with 1500 mL fluid restriction. Continue Prograf, prednisone, Prograf level, iron studies ordered. 5. Chronic kidney disease stage III with baseline creatinine 1.7-1.8. 6. History of end-stage renal disease status post renal transplant. Continue immunosuppression medications. Nephrology consult appreciated. 7. Diabetes mellitus type 2 on insulin pump. 8. Hyperlipidemia. Continue Lipitor 40 mg daily. 9. Hypertension. Continue Lasix, Zaroxolyn, amlodipine 10 mg daily, hydralazine 100 mg 3 times daily. 10. Gastroesophageal reflux disease and GI prophylaxis. Continue Pepcid. 11. Valvular heart disease with moderate severe tricuspid regurgitation, moderate mitral regurgitation. 12. Anemia of chronic kidney disease. Continue ferrous sulfate 325 mg daily, Aranesp added, anemia studies. CODE STATUS: Full code Patient will be admitted to the hospital for a minimum of 3 night stay. Discharge plan: To be determined Impression and plan of care have been directed as dictated by the signing physician. Lainey Cameron nurse practitioner acting as scribe for signing physician.
[2018-11-24 15:37] LABS: Glucose,Whole Blood 95 mg/dL (75-99)
[2018-11-24 16:42] VITALS: BMI 32.9
[2018-11-24 18:53] LABS: Iron Saturation 12.55 (12.00-45.00)
[2018-11-24 20:11] LABS: Glucose,Whole Blood 254 mg/dL (75-99)
[2018-11-25] MEDS: ALBUTEROL NEBULIZED 2.5 MG/3 ML INHALATION PRN ×4 (07:06→20:00)
[2018-11-25 07:25] LABS: Glucose,Whole Blood 117 mg/dL (75-99)
[2018-11-25] MEDS: LIDOCAINE 5% PATCH TOPICAL SCH (07:30)
[2018-11-25] MEDS: FUROSEMIDE 10 MG/ML 10 ML VIAL IV SCH ×2 (07:31→20:23)
[2018-11-25] MEDS: TACROLIMUS 1 MG CAP PO SCH ×2 (07:32→20:24)
[2018-11-25] MEDS: VIT A,C & E-LUTEIN-MINERALS 1 EACH TAB PO SCH (07:32)
[2018-11-25] MEDS: MYCOPHENOLATE MOFETIL 250 MG CAP PO SCH ×2 (07:32→20:24)
[2018-11-25] MEDS: CARVEDILOL 12.5 MG TAB PO SCH ×2 (07:33→15:50)
[2018-11-25] MEDS: ASCORBIC ACID 500 MG TAB PO SCH (07:33)
[2018-11-25] MEDS: predniSONE 5 MG TAB PO SCH (07:33)
[2018-11-25] MEDS: FAMOTIDINE 20 MG TAB PO SCH (07:33)
[2018-11-25] MEDS: ASPIRIN 81 MG PO SCH (07:33)
[2018-11-25] MEDS: hydrALAZINE HCL 50 MG TAB PO SCH ×3 (07:33→20:24)
[2018-11-25] MEDS: amLODIPine 10 MG TAB PO SCH (07:33)
[2018-11-25] MEDS: ATORVASTATIN 40 MG TAB PO SCH (07:33)
[2018-11-25] MEDS: FERROUS SULFATE 325 MG TAB PO SCH (07:34)
[2018-11-25 08:19] LABS: Calcium 9.5 mg/dL (8.4-10.2); Magnesium 2.8 mg/dL (1.6-2.3); Potassium 3.7 mmol/L (3.5-5.1)
[2018-11-25] MEDS ORDERED: DARBEPOETIN ALFA 25 MCG/0.42 ML SYRINGE SQ SCH (09:00)
--- NOTE | 2018-11-25 09:26 | P.PN ---
Subjective Patient is seen in follow-up for acute kidney injury on chronic kidney disease. Patient is chronic kidney disease stage III with baseline creatinine in the range of 1.7-1.8. Recently her creatinine has been in the range of 2-2.3. Patient has history of living unrelated renal transplant from [facility] since 2004. She is maintained on Prograf, CellCept and prednisone for immunosuppression. She presented with dyspnea and fluid overload. Currently maintained on Lasix 80 mg IV twice daily. Renal function a little more stable with creatinine up to 2.44. Edema is much improved. Vital signs are stable. General: The patient appeared well nourished and normally developed. HEENT: Head exam is unremarkable. Neck is without jugular venous distension. LUNGS: Lungs are clear to auscultation and percussion. Breath sounds decreased. HEART: Rate and Rhythm are regular. First and second heart sounds normal. No murmurs, rubs or gallops. ABDOMEN: Abdominal exam reveals normal bowel sounds. Non-tender and non- distended. No evidence of peritonitis. EXTREMITITES: 1+ edema. Objective - Vital Signs Vital signs: Vital Signs Temp 98.0 F 11/25/18 08:12 Pulse 80 11/25/18 08:12 Resp 16 11/25/18 08:12 BP 134/58 11/25/18 08:12 Pulse Ox 93 L 11/25/18 08:12 Intake & Output 11/24/18 11/25/18 11/25/18 18:59 06:59 18:59 Intake Total 560 Output Total 600 Balance -40 Weight 89.811 kg Intake: Oral 560 Output: Urine 600 Other: # Voids 1 2 - Labs CBC & Chem 7: 11/23/18 17:55 11/25/18 07:27 Labs: Abnormal Lab Results - Last 24 Hours (Table) 11/24/18 11/24/18 11/24/18 Range/Units 10:39 11:41 11:41 Sodium 135 L (137-145) mmol/L Carbon Dioxide (22-30) mmol/L BUN 82 H (7-17) mg/dL Creatinine 2.30 H (0.52-1.04) mg/dL Glucose (74-99) mg/dL POC Glucose (mg/dL) 117 H (75-99) mg/dL Magnesium (1.6-2.3) mg/dL Iron 30 L (50-170) ug/dL Ferritin 581.5 H (10.0-291.0) ng/mL 11/24/18 11/25/18 11/25/18 Range/Units 20:09 07:13 07:27 Sodium (137-145) mmol/L Carbon Dioxide 31 H (22-30) mmol/L BUN 83 H (7-17) mg/dL Creatinine 2.44 H (0.52-1.04) mg/dL Glucose 103 H (74-99) mg/dL POC Glucose (mg/dL) 254 H 117 H (75-99) mg/dL Magnesium 2.8 H (1.6-2.3) mg/dL Iron (50-170) ug/dL Ferritin (10.0-291.0) ng/mL Microbiology - Last 24 Hours (Table) 11/23/18 17:01 Blood Culture - Preliminary Blood No Growth after 24 hours Assessment and Plan Plan: Assessment: 1. Acute allograft dysfunction mostly prerenal secondary to cardiorenal syndrome. Creatinine 2.3 on admission and is 2.44 today which is due to diuresis. 2. Chronic kidney disease stage III with baseline creatinine in the range of 1.7-1.8. Recently her creatinine has been in the range of 2-2.3. 3. Dyspnea secondary to volume overload. Better. 4. Diastolic CHF with mild to moderate mitral stenosis and moderate to severe tricuspid regurgitation. 5. Severe pulmonary hypertension. 6. Anemia of chronic kidney disease. Iron deficiency noted. 7. Status post living unrelated renal transplant from a list if [place] in 2004. Plan: I will decrease Lasix to 60 mg IV twice daily. Low-salt diet and 1500 mL fluid restriction. Maintain immunosuppression medications. Follow-up Prograf level. Ferrlecit 125 mg IV daily for 3 days. First dose today. Maintain Aranesp. Repeat electrolytes in the morning.
[2018-11-25] MEDS: SODIUM FERRIC GLUCONAT-SUCROSE 125 MG in SODIUM CHLORIDE 0.9% 100 ML IVPB SCH (12:09)
[2018-11-25] MEDS ORDERED: INSULIN PUMP BASAL RATES 1 EACH MISC MISCELLANE PRN (13:12)
[2018-11-25] MEDS ORDERED: INSPUCOR MISCELLANE PRN (13:12)
[2018-11-25] MEDS ORDERED: INSULIN PUMP ACTIVE INSULIN 1 EACH MISC MISCELLANE PRN (13:12)
[2018-11-25] MEDS ORDERED: INSULIN ASPART 100 UNIT/ML 1 ML 10 ML VIAL SQ PRN (13:12)
[2018-11-25] MEDS ORDERED: INSULIN PUMP TARGET GLUCOSE 1 EACH MISC MISCELLANE PRN (13:12)
--- NOTE | 2018-11-25 14:33 | P.PN ---
Subjective Progress Note Date: 11/25/18 This is a 68-year-old female patient of Dr. Cordova, Dr. NAINA Ahmadi, Dr. Hussein with past medical history of diabetes mellitus on insulin pump, CAD status post PTCA and stenting of mid circumflex November 2016 subsequent pseudoaneurysm with surgical repair, GERD, hyperlipidemia, hypertension, end-stage renal disease status post renal transplant in 2004 at [facility] and follows every 6 months, anemia of chronic disease. Patient has received Procrit as well as iron infusion by Dr. Hussein. Patient had a recent hospitalization at the end of October 2018 for acute diastolic heart failure. Patient's son Dr. Cordova last week and at that time her breathing was okay but over the weekend it became much more difficult and her oxygen needs increased. Patient is normally on 3 L nasal cannula and this was increased to 3-1/2 or 4 L and her saturations were not improving. She was seen by home care nurse on Wednesday and plan was to monitor. On Wednesday she was at Dr. Hussein's office and Lasix was added at 40 mg daily and metolazone on hold. Procrit infusion was to be set up. On Wednesday her home care nurse reassessed her and her pulse ox was low and they tried percussion but it did not seem to help. Patient has had no recent weight change. Patient normally runs between 195 and 198 pounds. Patient came into [facility] emergency center for evaluation. She was afebrile, heart rate 81, blood pressure 173/74, pulse ox 96%, hemoglobin 8.5, BUN 87 creatinine 2.31, blood sugar 164. Troponin negative 1. ProBNP 1630. EKG was a sinus rhythm with left axis deviation. Patient was started on IV Lasix and Nitropaste. Chest x-ray marked cardiogenic pulmonary edema with prominent pleural effusions and atelectasis of the lower lobes greater on the left. Repeat chest x-ray this morning showed heart failure similar to comparison. Echocardiogram in October revealed EF 65-70%, LA severely dilated over 40, no aortic stenosis, moderate MR, mitral valve severely thickened, moderate to severe tricuspid regurgitation, severe pulmonary hypertension. Patient does not have any history of sleep studies in the past however the mentions that she is a snorer. Consults requested with nephrology, cardiology and pulmonary medicine. 11/25: Patient has been afebrile, pulse ox 93% on 5 L nasal cannula. Heart rate running in the 80s and 90s, blood pressure 134/58. BUN 83 and creatinine 2.44, capillary blood glucose running between 103 and 254. Iron 30, TIBC 239, iron saturation 12.55, ferritin 581.5. Lower extremity edema is improved from yesterday. Respiratory status is improved from yesterday. Lasix has been decreased to 60 mg IV twice daily by nephrology. Patient is continued on low salt diet and fluid restriction. Ferrlecit has been ordered for 3 days starting today and continued on Aranesp. Review of Systems Constitutional: Reports fatigue, Reports lethargy, Reports malaise, Reports weakness, Denies chills, Denies fever, Denies weight gain, Denies weight loss Eyes: denies blurred vision, denies pain Ears, nose, mouth and throat: Denies dysphagia, Denies headache, Denies hoarseness, Denies sore throat Cardiovascular: Reports decreased exercise tolerance, Reports dyspnea on exertion, Reports edema, Reports leg edema, Reports shortness of breath-improved , Denies chest pain, Denies lightheadedness, Denies syncope Respiratory: Reports dyspnea, Reports home oxygen, Denies cough, Denies excessive sputum, Denies hemoptysis, Denies wheezing Gastrointestinal: Denies abdominal pain, Denies diarrhea, Denies melena, Denies nausea, Denies vomiting Genitourinary: Denies dysuria, Denies hematuria Musculoskeletal: Denies frequent falls, Denies gait dysfunction, Denies myalgias Integumentary: Denies pruritus, Denies rash, Denies wounds Neurological: Denies aphasia, Denies change in mentation, Denies confusion, Denies gait dysfunction, Denies head injury, Denies headaches, Denies numbness, Denies seizures, Denies weakness Psychiatric: Denies anxiety, Denies depression Endocrine: Denies fatigue, Denies weight change Objective - Vital Signs Vital signs: Vital Signs Temp 98.0 F 11/25/18 08:12 Pulse 80 11/25/18 08:12 Resp 16 11/25/18 08:12 BP 134/58 11/25/18 08:12 Pulse Ox 93 L 11/25/18 08:12 Intake & Output 11/24/18 11/25/18 11/25/18 18:59 06:59 18:59 Intake Total 560 Output Total 600 Balance -40 Weight 89.811 kg Intake: Oral 560 Output: Urine 600 Other: # Voids 1 2 - Exam Gen: This is a 68 year old obese female. She is currently on BiPAP staying in a recliner with no respiratory distress. HEENT: Head is atraumatic, normocephalic. Pupils equal, round. Sclerae is anicteric. NECK: Supple. No JVD. No lymphadenopathy. No thyromegaly. LUNGS: Diminished bilaterally. Mild intercostal retractions. HEART: Regular rate and rhythm. Systolic murmur. ABDOMEN: Soft. Bowel sounds are present. No masses. No tenderness. EXTREMITIES: 2+ bilateral pedal edema. No calf tenderness. Dorsalis pedis +2 bilaterally. NEUROLOGICAL: Patient is awake, alert and oriented x3. Cranial nerves 2 through 12 are grossly intact. - Labs CBC & Chem 7: 11/23/18 17:55 11/25/18 07:27 Labs: Abnormal Lab Results - Last 24 Hours (Table) 11/24/18 11/24/18 11/24/18 Range/Units 10:39 11:41 11:41 Sodium 135 L (137-145) mmol/L Carbon Dioxide (22-30) mmol/L BUN 82 H (7-17) mg/dL Creatinine 2.30 H (0.52-1.04) mg/dL Glucose (74-99) mg/dL POC Glucose (mg/dL) 117 H (75-99) mg/dL Magnesium (1.6-2.3) mg/dL Iron 30 L (50-170) ug/dL Ferritin 581.5 H (10.0-291.0) ng/mL 11/24/18 11/25/18 11/25/18 Range/Units 20:09 07:13 07:27 Sodium (137-145) mmol/L Carbon Dioxide 31 H (22-30) mmol/L BUN 83 H (7-17) mg/dL Creatinine 2.44 H (0.52-1.04) mg/dL Glucose 103 H (74-99) mg/dL POC Glucose (mg/dL) 254 H 117 H (75-99) mg/dL Magnesium 2.8 H (1.6-2.3) mg/dL Iron (50-170) ug/dL Ferritin (10.0-291.0) ng/mL Microbiology - Last 24 Hours (Table) 11/23/18 17:01 Blood Culture - Preliminary Blood No Growth after 24 hours Assessment and Plan Plan: 1. Acute hypoxic respiratory failure secondary to acute on chronic diastolic heart failure. Lasix decreased to 60 mg IV twice daily, continue Zaroxolyn 2.5 mg every 48 hours, RAJ daily weights, Coreg 12.5 mg twice daily. Consult appreciated with nephrology, cardiology and pulmonary medicine. Monitor electrolytes and renal function. Continue O2 therapy currently on BiPAP at 50% FiO2 2. History of coronary artery disease status post stent to the RCA, LAD, circumflex care of Dr. NAINA Ahmadi. Continue aspirin 81 mg daily, Lipitor 40 mg daily, Coreg. 3. Severe pulmonary hypertension. Patient may benefit from outpatient sleep study. 4. 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 Nephrology consult appreciated. Continue Lasix, low salt diet with 1500 mL fluid restriction. Continue Prograf, prednisone, Prograf level, iron studies ordered. 5. Chronic kidney disease stage III with baseline creatinine 1.7-1.8. 6. History of end-stage renal disease status post renal transplant. Continue immunosuppression medications. Nephrology consult appreciated. 7. Diabetes mellitus type 2 on insulin pump. 8. Hyperlipidemia. Continue Lipitor 40 mg daily. 9. Hypertension. Continue Lasix, Zaroxolyn, amlodipine 10 mg daily, hydralazine 100 mg 3 times daily. 10. Gastroesophageal reflux disease and GI prophylaxis. Continue Pepcid. 11. Valvular heart disease with moderate severe tricuspid regurgitation, moderate mitral regurgitation. 12. Anemia of chronic kidney disease. Continue ferrous sulfate 325 mg daily, Aranesp, Ferrlecit 3 days. CODE STATUS: Full code Discharge plan: Home with [facility] Impression and plan of care have been directed as dictated by the signing physician. Lainey Cameron nurse practitioner acting as scribe for signing physician.
[2018-11-25 17:14] LABS: Glucose,Whole Blood 212 mg/dL (75-99)
[2018-11-25] MEDS: INSULIN PUMP MEAL BOLUS 1 UNIT MISC MISCELLANE SCH ×2 (19:01→22:30)
[2018-11-25 20:25] LABS: Glucose,Whole Blood 305 mg/dL (75-99)
[2018-11-26 04:59] LABS: Glucose,Whole Blood 184 mg/dL (75-99)
[2018-11-26 06:16] LABS: Glucose,Whole Blood 145 mg/dL (75-99)
[2018-11-26 07:12] LABS: Glucose,Whole Blood 140 mg/dL (75-99)
[2018-11-26] MEDS: INSULIN PUMP MEAL BOLUS 1 UNIT MISC MISCELLANE SCH ×4 (07:30→23:01)
[2018-11-26] MEDS: ALBUTEROL NEBULIZED 2.5 MG/3 ML INHALATION PRN (08:29)
[2018-11-26] MEDS: ASPIRIN 81 MG PO SCH (08:47)
[2018-11-26] MEDS: DOCUSATE 100 MG CAP PO PRN (08:47)
[2018-11-26] MEDS: FUROSEMIDE 10 MG/ML 10 ML VIAL IV SCH ×2 (08:47→22:39)
[2018-11-26] MEDS: FAMOTIDINE 20 MG TAB PO SCH (08:47)
[2018-11-26] MEDS: ATORVASTATIN 40 MG TAB PO SCH (08:47)
[2018-11-26] MEDS: ASCORBIC ACID 500 MG TAB PO SCH (08:48)
[2018-11-26] MEDS: FERROUS SULFATE 325 MG TAB PO SCH (08:48)
[2018-11-26] MEDS: CARVEDILOL 12.5 MG TAB PO SCH ×2 (08:48→22:39)
[2018-11-26] MEDS: hydrALAZINE HCL 50 MG TAB PO SCH ×3 (08:48→23:01)
[2018-11-26] MEDS: amLODIPine 10 MG TAB PO SCH (08:48)
[2018-11-26] MEDS: predniSONE 5 MG TAB PO SCH (08:48)
[2018-11-26] MEDS: MAGNESIUM OXIDE 400 MG TAB PO SCH (08:48)
[2018-11-26] MEDS: MYCOPHENOLATE MOFETIL 250 MG CAP PO SCH ×2 (08:49→22:39)
[2018-11-26] MEDS: METOLAZONE 2.5 MG TAB PO SCH (08:50)
[2018-11-26] MEDS: VIT A,C & E-LUTEIN-MINERALS 1 EACH TAB PO SCH (08:50)
[2018-11-26] MEDS: TACROLIMUS 1 MG CAP PO SCH ×2 (08:50→22:39)
[2018-11-26] MEDS: LIDOCAINE 5% PATCH TOPICAL SCH (08:50)
[2018-11-26] MEDS: ACETAMINOPHEN TAB 500 MG TAB PO PRN (08:52)
[2018-11-26 09:56] LABS: Calcium 9.3 mg/dL (8.4-10.2); Magnesium 2.7 mg/dL (1.6-2.3); Potassium 3.5 mmol/L (3.5-5.1)
[2018-11-26 11:45] LABS: Glucose,Whole Blood 121 mg/dL (75-99)
[2018-11-26 18:46] LABS: Glucose,Whole Blood 210 mg/dL (75-99)
[2018-11-26 20:39] LABS: Glucose,Whole Blood 148 mg/dL (75-99)
[2018-11-26] MEDS: SODIUM FERRIC GLUCONAT-SUCROSE 125 MG in SODIUM CHLORIDE 0.9% 100 ML IVPB SCH (22:38)
[2018-11-27 07:00] LABS: Glucose,Whole Blood 120 mg/dL (75-99)
[2018-11-27] MEDS: INSULIN PUMP MEAL BOLUS 1 UNIT MISC MISCELLANE SCH ×4 (07:30→21:53)
[2018-11-27] MEDS: DOCUSATE 100 MG CAP PO PRN (08:58)
[2018-11-27] MEDS: ACETAMINOPHEN TAB 500 MG TAB PO PRN (08:58)
[2018-11-27] MEDS: ATORVASTATIN 40 MG TAB PO SCH (08:58)
[2018-11-27] MEDS: ASCORBIC ACID 500 MG TAB PO SCH (08:58)
[2018-11-27] MEDS: hydrALAZINE HCL 50 MG TAB PO SCH ×3 (08:58→21:41)
[2018-11-27] MEDS: FAMOTIDINE 20 MG TAB PO SCH (08:59)
[2018-11-27] MEDS: ASPIRIN 81 MG PO SCH (08:59)
[2018-11-27] MEDS: FERROUS SULFATE 325 MG TAB PO SCH (08:59)
[2018-11-27] MEDS: amLODIPine 10 MG TAB PO SCH (08:59)
[2018-11-27] MEDS: CARVEDILOL 12.5 MG TAB PO SCH ×2 (08:59→17:06)
[2018-11-27] MEDS: FUROSEMIDE 10 MG/ML 10 ML VIAL IV SCH ×2 (08:59→21:41)
[2018-11-27] MEDS: predniSONE 5 MG TAB PO SCH (09:00)
[2018-11-27] MEDS: TACROLIMUS 1 MG CAP PO SCH ×2 (09:00→21:41)
[2018-11-27] MEDS: VIT A,C & E-LUTEIN-MINERALS 1 EACH TAB PO SCH (09:00)
[2018-11-27] MEDS: MYCOPHENOLATE MOFETIL 250 MG CAP PO SCH ×2 (09:00→21:42)
[2018-11-27] MEDS: ALBUTEROL NEBULIZED 2.5 MG/3 ML INHALATION PRN ×2 (09:18→12:25)
[2018-11-27] MEDS: LIDOCAINE 5% PATCH TOPICAL SCH (10:41)
[2018-11-27] MEDS: SODIUM FERRIC GLUCONAT-SUCROSE 125 MG in SODIUM CHLORIDE 0.9% 100 ML IVPB SCH (11:20)
[2018-11-27 12:19] LABS: Glucose,Whole Blood 228 mg/dL (75-99)
--- NOTE | 2018-11-27 12:53 | P.PN ---
Subjective Progress Note Date: 11/27/18 Seen and examined for the follow-up of acute on chronic kidney disease. She has kidney transplant at [facility] in 2004. Baseline creatinine used to be 1.7-1.8 and lately around 2-2.3 MG per DL. She came in with worsening shortness of breath and edema. Still has edema and on Lasix. No nausea vomiting or diarrhea. No new labs today. Objective - Vital Signs Vital signs: Vital Signs Temp 98.1 F 11/27/18 07:12 Pulse 80 11/27/18 12:40 Resp 16 11/27/18 07:12 BP 153/70 11/27/18 07:12 Pulse Ox 92 L 11/27/18 07:12 Intake & Output 11/26/18 11/27/18 11/27/18 18:59 06:59 18:59 Intake Total 590 Output Total 900 900 Balance -310 -900 Weight 91.5 kg Intake: Oral 590 Output: Urine 900 900 Other: Voiding Method Toilet Toilet Toilet # Voids 2 3 # Bowel Movements 1 - Exam Sitting in chair in no acute distress S1-S2 heard Basal crackles Edema. - Labs CBC & Chem 7: 11/23/18 17:55 11/26/18 08:45 Labs: Abnormal Lab Results - Last 24 Hours (Table) 11/26/18 11/26/18 11/27/18 Range/Units 17:05 20:38 06:50 POC Glucose (mg/dL) 210 H 148 H 120 H (75-99) mg/dL 11/27/18 Range/Units 12:16 POC Glucose (mg/dL) 228 H (75-99) mg/dL Microbiology - Last 24 Hours (Table) 11/23/18 17:01 Blood Culture - Preliminary Blood No Growth after 72 hours Assessment and Plan Assessment: #1 acute kidney injury secondary to cardiorenal syndrome. 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 #3 CK D3 baseline 2-2.3. #4 CAD. #5 anemia with CKD #6 hypertension with CKD Plan: #1 continue with Lasix for now. Repeat labs in the morning. #2 Prograf level yesterday was 5.3. #3 avoid nephrotoxic agents and hypotensive episodes
--- NOTE | 2018-11-27 15:13 | P.PN ---
Subjective Progress Note Date: 11/27/18 Principal diagnosis: Shortness of breath This is a pleasant 68-year-old female patient with a past medical history significant for coronary artery disease and prior stenting of the RCA in 2012, left circumflex in 2017, chronic kidney disease and status post kidney transplant in the past, diabetes, hypertension, and chronic diastolic congestive heart failure, was admitted to the hospital with acute exacerbation of congestive heart failure secondary to diastolic dysfunction. The patient has been experiencing progressive exertional dyspnea as well as orthopnea and also bilateral lower extremities edema and weight gain. The patient continues to follow with a truck trailer mechanic as well as foil operator at the [facility] according to her. The last echocardiogram from October 2018 and that revealed hyperdynamic left ventricle with evidence of severe pulmonary hypertension and pulmonary artery systolic pressure of about 80 mmHg. On follow-up with her today, 11/27/2018, the patient continues to have shortness of breath. She continues to have bilateral lower extremities edema. On examination she looks hypervolemic. She continues to be on Lasix IV and that has been managed mainly by the nephrology team, giving her creatinine baseline which is 2.5 and the history of renal transplant. Objective - Vital Signs Vital signs: Vital Signs Temp 98.1 F 11/27/18 07:12 Pulse 80 11/27/18 12:40 Resp 16 11/27/18 07:12 BP 153/70 11/27/18 07:12 Pulse Ox 92 L 11/27/18 07:12 Intake & Output 11/26/18 11/27/18 11/27/18 18:59 06:59 18:59 Intake Total 590 Output Total 900 900 Balance -310 -900 Weight 91.5 kg Intake: Oral 590 Output: Urine 900 900 Other: Voiding Method Toilet Toilet Toilet # Voids 2 3 # Bowel Movements 1 - Constitutional General appearance: Present: no acute distress - Respiratory Respiratory: bilateral: diminished - Cardiovascular Rhythm: regular Heart sounds: normal: S1, S2 Abnormal Heart Sounds: Present: systolic murmur - Labs CBC & Chem 7: 11/23/18 17:55 11/26/18 08:45 Labs: Abnormal Lab Results - Last 24 Hours (Table) 11/26/18 11/26/18 11/27/18 Range/Units 17:05 20:38 06:50 POC Glucose (mg/dL) 210 H 148 H 120 H (75-99) mg/dL 11/27/18 Range/Units 12:16 POC Glucose (mg/dL) 228 H (75-99) mg/dL Microbiology - Last 24 Hours (Table) 11/23/18 17:01 Blood Culture - Preliminary Blood No Growth after 72 hours Assessment and Plan Assessment: Assessment #1 congestive heart failure exacerbation secondary to diastolic dysfunction, acute on chronic #2 chronic kidney disease and status post kidney transplant #3 coronary artery disease and status post a stenting of RCA and LCx #4 severe pulmonary hypertension #5 multiple comorbid conditions Plan #1 continue the current dose of Lasix IV. That has been managed mainly by the nephrology team #2 continue monitor the kidney function and electrolytes #3 I don't see a reason to proceed with any invasive approach like coronary angiogram at this point of time, giving the absence of any chest pain or discomfort, and the absence of any ischemic ST or T-wave abnormalities on the EKG #4 follow-up with the patient.
--- NOTE | 2018-11-27 15:37 | P.PN ---
Subjective Progress Note Date: 11/26/18 Principal diagnosis: Respiratory failure, diastolic congestive heart failure, elevated troponin with acute coronary syndrome, pulmonary hypertension, chronic kidney disease, post renal transplant, type 2 diabetes, hyperlipidemia, chronic edema and valvular heart disease. This is a 68-year-old female patient of Dr. Cordova, Dr. NAINA Ahmadi, Dr. Hussein with past medical history of diabetes mellitus on insulin pump, CAD status post PTCA and stenting of mid circumflex November 2016 subsequent pseudoaneurysm with surgical repair, GERD, hyperlipidemia, hypertension, end-stage renal disease status post renal transplant in 2004 at [facility] and follows every 6 months, anemia of chronic disease. Patient has received Procrit as well as iron infusion by Dr. Hussein. Patient had a recent hospitalization at the end of October 2018 for acute diastolic heart failure. Patient's son Dr. Cordova last week and at that time her breathing was okay but over the weekend it became much more difficult and her oxygen needs increased. Patient is normally on 3 L nasal cannula and this was increased to 3-1/2 or 4 L and her saturations were not improving. She was seen by home care nurse on Wednesday and plan was to monitor. On Wednesday she was at Dr. Hussein's office and Lasix was added at 40 mg daily and metolazone on hold. Procrit infusion was to be set up. On Wednesday her home care nurse reassessed her and her pulse ox was low and they tried percussion but it did not seem to help. Patient has had no recent weight change. Patient normally runs between 195 and 198 pounds. Patient came into [facility] emergency center for evaluation. She was afebrile, heart rate 81, blood pressure 173/74, pulse ox 96%, hemoglobin 8.5, BUN 87 creatinine 2.31, blood sugar 164. Troponin negative 1. ProBNP 1630. EKG was a sinus rhythm with left axis deviation. Patient was started on IV Lasix and Nitropaste. Chest x-ray marked cardiogenic pulmonary edema with prominent pleural effusions and atelectasis of the lower lobes greater on the left. Repeat chest x-ray this morning showed heart failure similar to comparison. Echocardiogram in October revealed EF 65-70%, LA severely dilated over 40, no aortic stenosis, moderate MR, mitral valve severely thickened, moderate to severe tricuspid regurgitation, severe pulmonary hypertension. Patient does not have any history of sleep studies in the past however the mentions that she is a snorer. Consults requested with nephrology, cardiology and pulmonary medicine. 11/25: Patient has been afebrile, pulse ox 93% on 5 L nasal cannula. Heart rate running in the 80s and 90s, blood pressure 134/58. BUN 83 and creatinine 2.44, capillary blood glucose running between 103 and 254. Iron 30, TIBC 239, iron saturation 12.55, ferritin 581.5. Lower extremity edema is improved from yesterday. Respiratory status is improved from yesterday. Lasix has been decreased to 60 mg IV twice daily by nephrology. Patient is continued on low salt diet and fluid restriction. Ferrlecit has been ordered for 3 days starting today and continued on Aranesp. 11/26: Patient is feeling slightly bit better, on 3 L for 2 with pulse ox running around 94 percentile. Kidney function has not changed too much, blood sugar has been better. Patient still having mild dyspnea on and shortness of breath with mild fluid overload. I reviewed patient is under aspirin the current finding looking into the evidence-based specially with her elevated troponin and recurrent sinus symptom of heart failure which could be flush pulmonary edema related to unstable angina from existing blockage in her coronary artery. With her complication last time she had angioplasty and stent placement patient would prefer to have her testing done at [facility] close to her transplant team if needed especially having to use iodine dye for her heart catheter. Will address this with cardiology in town and prepare patient when she is ready to either be discharged and go to [facility] for outpatient follow up or if continue to have recurrent symptom might need to be transfer from hospital to hospital for potential need for angiogram and angioplasty. Objective - Vital Signs Vital signs: Vital Signs Temp 97.9 F 11/26/18 08:20 Pulse 80 11/26/18 08:42 Resp 18 11/26/18 08:20 BP 129/65 11/26/18 08:20 Pulse Ox 93 L 11/26/18 08:20 Intake & Output 11/26/18 11/26/18 11/27/18 06:59 18:59 06:59 Output Total 900 Balance -900 Output: Urine 900 Other: Voiding Method Toilet Toilet - Constitutional Constitutional Comment(s): Review of system: CONSTITUTIONAL: Well-developed no acute respiratory distress. Mildly overweight EYES: No icterus sclerae, no conjunctivitis. EARS, NOSE, MOUTH, THROAT, and FACE: No sore throat, lymphadenopathy, carotid bruits or deformity. RESPIRATORY: Mild shortness of breath and dyspnea with mild cough. CARDIOVASCULAR: Heart failure with possible sign and symptom of instable angina as a flush pulmonary edema GASTROINTESTINAL: No Abd pain, Nausea or vomiting, no Diarrhea or constipation, No GI Bleed, no distention or masses. GENITOURINARY: Negative for Hematuria or UTI, no kidney stones. INTEGUMENT/BREAST: Positive edema with positive arthritis HEMATOLOGIC/LYMPHATIC: Negative for bleed or purpura. MUSCULOSKELTAL: Negative for Myalgia or arthralgia. NEURLOGICAL: No LOC, Sz or syncope, blurred vision dizziness or abnormality.. BEHAVIORAL/PSYCH: Negative. ENDOCRINE: Negative. Physical examination: General Appearance: Alert, cooperative, no distress, appears stated age. Mildly overweight still using BiPAP when she is napping Neck HEENT: Supple, no lymphadenopathy, no thyroid enlargement, no carotid bruits. Lungs: Decreased breath some bilateral fine rhonchi no crackles. Chest Wall: Decreased expansion with the respiration positive use of accessory muscle. Heart: Regular rate and rhythm, S1, S2 normal, no murmur, rub or gallop. Back: Symmetric, no curvature, ROM normal, no CVA tenderness. Abdomen: Soft, non-tender, bowel sounds active all four quadrants, no masses, no organomegaly. Extremities: 1+ edema with mild arthralgia both knees and hips.. Pulses: 2+ and symmetric. Skin: Skin color, texture, tugor normal, no rashes or lesions. Neurologic: Alert oriented x3 cranial nerves II through XII intact, no motor deficit, no abnormal balance or gait. - Labs CBC & Chem 7: 11/23/18 17:55 11/26/18 08:45 Labs: Abnormal Lab Results - Last 24 Hours (Table) 11/26/18 11/26/18 11/26/18 Range/Units 04:58 06:15 07:10 Sodium (137-145) mmol/L Chloride (98-107) mmol/L BUN (7-17) mg/dL Creatinine (0.52-1.04) mg/dL Glucose (74-99) mg/dL POC Glucose (mg/dL) 184 H 145 H 140 H (75-99) mg/dL Magnesium (1.6-2.3) mg/dL 11/26/18 11/26/18 11/26/18 Range/Units 08:45 11:44 17:05 Sodium 135 L (137-145) mmol/L Chloride 96 L (98-107) mmol/L BUN 92 H (7-17) mg/dL Creatinine 2.54 H (0.52-1.04) mg/dL Glucose 119 H (74-99) mg/dL POC Glucose (mg/dL) 121 H 210 H (75-99) mg/dL Magnesium 2.7 H (1.6-2.3) mg/dL 11/26/18 Range/Units 20:38 Sodium (137-145) mmol/L Chloride (98-107) mmol/L BUN (7-17) mg/dL Creatinine (0.52-1.04) mg/dL Glucose (74-99) mg/dL POC Glucose (mg/dL) 148 H (75-99) mg/dL Magnesium (1.6-2.3) mg/dL Microbiology - Last 24 Hours (Table) 11/23/18 17:01 Blood Culture - Preliminary Blood No Growth after 48 hours Assessment and Plan Plan: 1 Acute on chronic hypoxic respiratory failure: Secondary to acute on chronic diastolic congestive heart failure with possible instable angina possible coronary artery disease causing more blockage and more abnormality. Continue medical management, still seen pulmonary, still seen cardiology. 2 unstable angina: With recurrent sign and symptom of SD and elevated troponin patient had stent of the RCA and LAD still seen cardiology regular basis with her medical management with a complicated problem after her last angioplasty patient was resistant to go for any further cardiac testing. 3 severe pulmonary hypertension: Patient has been on medical management and she will require sleep study as an outpatient. 4 acute allograft dysfunction secondary to cardiorenal syndrome: Patient still seen nephrology regular basis no dialysis needed her kidney function had declined slightly lately. 5 chronic kidney disease stage IV seen nephrology still on conservative management no need for hemodialysis. 6 type 2 diabetes: On insulin pump her blood sugar slightly but better. 7 hyperlipidemia: Still on atorvastatin 40 mg daily. 8 chronic edema: Still on diuretics with her swelling slightly but better at this point. 9 chronic valvular heart disease with moderate to severe tricuspid regurgitation and mitral regurgitation seen cardiology. 10 chronic anemia secondary to chronic kidney disease has been on iron supplement and Aranesp, along with Procrit. CODE STATUS: Full code. Discussion I have long discussion with patient and her about the current symptoms explained to them the possibility of her recurrent episode as sign of flash pulmonary edema from acute coronary syndrome with more blockage ongoing causing a problem the patient might require further cardiac management including heart catheter and possible angioplasty. Something patient and her will think about it, patient will be stabilized and might go to see her refrigeration insulator that [facility] as an outpatient if she stable if not might need be transferred from inpatient inpatient.
--- NOTE | 2018-11-27 15:39 | P.PN ---
Subjective Progress Note Date: 11/27/18 Principal diagnosis: Respiratory failure, diastolic congestive heart failure, elevated troponin with acute coronary syndrome, pulmonary hypertension, chronic kidney disease, post renal transplant, type 2 diabetes, hyperlipidemia, chronic edema and valvular heart disease. This is a 68-year-old female patient of Dr. Cordova, Dr. NAINA Ahmadi, Dr. Hussein with past medical history of diabetes mellitus on insulin pump, CAD status post PTCA and stenting of mid circumflex November 2016 subsequent pseudoaneurysm with surgical repair, GERD, hyperlipidemia, hypertension, end-stage renal disease status post renal transplant in 2004 at [facility] and follows every 6 months, anemia of chronic disease. Patient has received Procrit as well as iron infusion by Dr. Hussein. Patient had a recent hospitalization at the end of October 2018 for acute diastolic heart failure. Patient's son Dr. Cordova last week and at that time her breathing was okay but over the weekend it became much more difficult and her oxygen needs increased. Patient is normally on 3 L nasal cannula and this was increased to 3-1/2 or 4 L and her saturations were not improving. She was seen by home care nurse on Wednesday and plan was to monitor. On Wednesday she was at Dr. Hussein's office and Lasix was added at 40 mg daily and metolazone on hold. Procrit infusion was to be set up. On Wednesday her home care nurse reassessed her and her pulse ox was low and they tried percussion but it did not seem to help. Patient has had no recent weight change. Patient normally runs between 195 and 198 pounds. Patient came into [facility] emergency center for evaluation. She was afebrile, heart rate 81, blood pressure 173/74, pulse ox 96%, hemoglobin 8.5, BUN 87 creatinine 2.31, blood sugar 164. Troponin negative 1. ProBNP 1630. EKG was a sinus rhythm with left axis deviation. Patient was started on IV Lasix and Nitropaste. Chest x-ray marked cardiogenic pulmonary edema with prominent pleural effusions and atelectasis of the lower lobes greater on the left. Repeat chest x-ray this morning showed heart failure similar to comparison. Echocardiogram in October revealed EF 65-70%, LA severely dilated over 40, no aortic stenosis, moderate MR, mitral valve severely thickened, moderate to severe tricuspid regurgitation, severe pulmonary hypertension. Patient does not have any history of sleep studies in the past however the mentions that she is a snorer. Consults requested with nephrology, cardiology and pulmonary medicine. 11/25: Patient has been afebrile, pulse ox 93% on 5 L nasal cannula. Heart rate running in the 80s and 90s, blood pressure 134/58. BUN 83 and creatinine 2.44, capillary blood glucose running between 103 and 254. Iron 30, TIBC 239, iron saturation 12.55, ferritin 581.5. Lower extremity edema is improved from yesterday. Respiratory status is improved from yesterday. Lasix has been decreased to 60 mg IV twice daily by nephrology. Patient is continued on low salt diet and fluid restriction. Ferrlecit has been ordered for 3 days starting today and continued on Aranesp. 11/26: Patient is feeling slightly bit better, on 3 L for 2 with pulse ox running around 94 percentile. Kidney function has not changed too much, blood sugar has been better. Patient still having mild dyspnea on and shortness of breath with mild fluid overload. I reviewed patient is under aspirin the current finding looking into the evidence-based specially with her elevated troponin and recurrent sinus symptom of heart failure which could be flush pulmonary edema related to unstable angina from existing blockage in her coronary artery. With her complication last time she had angioplasty and stent placement patient would prefer to have her testing done at [facility] close to her transplant team if needed especially having to use iodine dye for her heart catheter. Will address this with cardiology in town and prepare patient when she is ready to either be discharged and go to [facility] for outpatient follow up or if continue to have recurrent symptom might need to be transfer from hospital to hospital for potential need for angiogram and angioplasty. 11/27: Patient is sitting in her recliner using her BiPAP at the time still having mild dyspnea and shortness of breath still having symptom with minimum exertion. Still in A. fib with RVR patient will probably need to be on anticoagulation as well. Objective - Vital Signs Vital signs: Vital Signs Temp 98.1 F 11/27/18 07:12 Pulse 80 11/27/18 12:40 Resp 16 11/27/18 07:12 BP 153/70 11/27/18 07:12 Pulse Ox 92 L 11/27/18 07:12 Intake & Output 11/26/18 11/27/18 11/27/18 18:59 06:59 18:59 Intake Total 590 Output Total 900 900 Balance -310 -900 Weight 91.5 kg Intake: Oral 590 Output: Urine 900 900 Other: Voiding Method Toilet Toilet Toilet # Voids 2 3 # Bowel Movements 1 - Exam Review of system: CONSTITUTIONAL: Well-developed no acute respiratory distress. Mildly overweight EYES: No icterus sclerae, no conjunctivitis. EARS, NOSE, MOUTH, THROAT, and FACE: No sore throat, lymphadenopathy, carotid bruits or deformity. RESPIRATORY: Mild shortness of breath and dyspnea with mild cough. CARDIOVASCULAR: Heart failure with possible sign and symptom of instable angina as a flush pulmonary edema GASTROINTESTINAL: No Abd pain, Nausea or vomiting, no Diarrhea or constipation, No GI Bleed, no distention or masses. GENITOURINARY: Negative for Hematuria or UTI, no kidney stones. INTEGUMENT/BREAST: Positive edema with positive arthritis HEMATOLOGIC/LYMPHATIC: Negative for bleed or purpura. MUSCULOSKELTAL: Negative for Myalgia or arthralgia. NEURLOGICAL: No LOC, Sz or syncope, blurred vision dizziness or abnormality.. BEHAVIORAL/PSYCH: Negative. ENDOCRINE: Negative. Physical examination: General Appearance: Alert, cooperative, no distress, appears stated age. Mildly overweight still using BiPAP when she is napping Neck HEENT: Supple, no lymphadenopathy, no thyroid enlargement, no carotid bruits. Lungs: Decreased breath some bilateral fine rhonchi no crackles. Chest Wall: Decreased expansion with the respiration positive use of accessory muscle. Heart: Regular rate and rhythm, S1, S2 normal, no murmur, rub or gallop. Back: Symmetric, no curvature, ROM normal, no CVA tenderness. Abdomen: Soft, non-tender, bowel sounds active all four quadrants, no masses, no organomegaly. Extremities: 1+ edema with mild arthralgia both knees and hips.. Pulses: 2+ and symmetric. Skin: Skin color, texture, tugor normal, no rashes or lesions. Neurologic: Alert oriented x3 cranial nerves II through XII intact, no motor deficit, no abnormal balance or gait. - Labs CBC & Chem 7: 11/23/18 17:55 11/26/18 08:45 Labs: Abnormal Lab Results - Last 24 Hours (Table) 11/26/18 11/26/18 11/27/18 Range/Units 17:05 20:38 06:50 POC Glucose (mg/dL) 210 H 148 H 120 H (75-99) mg/dL 11/27/18 Range/Units 12:16 POC Glucose (mg/dL) 228 H (75-99) mg/dL Microbiology - Last 24 Hours (Table) 11/23/18 17:01 Blood Culture - Preliminary Blood No Growth after 72 hours Assessment and Plan Plan: 1 Acute on chronic hypoxic respiratory failure: Secondary to acute on chronic diastolic congestive heart failure with possible instable angina possible coronary artery disease causing more blockage and more abnormality. Continue medical management, still seen pulmonary, still seen cardiology. 2 unstable angina: With recurrent sign and symptom of OR and elevated troponin patient had stent of the RCA and LAD still seen cardiology regular basis with her medical management with a complicated problem after her last angioplasty patient was resistant to go for any further cardiac testing. 3 severe pulmonary hypertension: Patient has been on medical management and she will require sleep study as an outpatient. 4 acute allograft dysfunction secondary to cardiorenal syndrome: Patient still seen nephrology regular basis no dialysis needed her kidney function had declined slightly lately. 5 chronic kidney disease stage IV seen nephrology still on conservative management no need for hemodialysis. 6 type 2 diabetes: On insulin pump her blood sugar slightly but better. 7 hyperlipidemia: Still on atorvastatin 40 mg daily. 8 chronic edema: Still on diuretics with her swelling slightly but better at this point. 9 chronic valvular heart disease with moderate to severe tricuspid regurgitation and mitral regurgitation seen cardiology. 10 chronic anemia secondary to chronic kidney disease has been on iron supplement and Aranesp, along with Procrit. CODE STATUS: Full code. Discussion I have long discussion with patient and her about the current symptoms explained to them the possibility of her recurrent episode as sign of flash pulmonary edema from acute coronary syndrome with more blockage ongoing causing a problem the patient might require further cardiac management including heart catheter and possible angioplasty. 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
[2018-11-27 17:14] LABS: Glucose,Whole Blood 283 mg/dL (75-99)
[2018-11-27 19:34] LABS: Glucose,Whole Blood 180 mg/dL (75-99)
[2018-11-28] MEDS: ACETAMINOPHEN TAB 500 MG TAB PO PRN ×2 (03:29→08:40)
[2018-11-28 03:30] LABS: Glucose,Whole Blood 157 mg/dL (75-99)
[2018-11-28 07:27] LABS: Glucose,Whole Blood 166 mg/dL (75-99)
[2018-11-28 07:37] LABS: Calcium 9.5 mg/dL (8.4-10.2); Potassium 3.2 mmol/L (3.5-5.1)
[2018-11-28 07:55] VITALS: BP 152/61; PULSE 71; RESP 17; TEMP 98
[2018-11-28] MEDS: FUROSEMIDE 10 MG/ML 10 ML VIAL IV SCH ×2 (08:34→08:43)
[2018-11-28] MEDS: amLODIPine 10 MG TAB PO SCH (08:34)
[2018-11-28] MEDS: INSULIN PUMP MEAL BOLUS 1 UNIT MISC MISCELLANE SCH (08:34)
[2018-11-28] MEDS: CARVEDILOL 12.5 MG TAB PO SCH (08:34)
[2018-11-28] MEDS: ASCORBIC ACID 500 MG TAB PO SCH (08:34)
[2018-11-28] MEDS: FAMOTIDINE 20 MG TAB PO SCH (08:35)
[2018-11-28] MEDS: ASPIRIN 81 MG PO SCH (08:35)
[2018-11-28] MEDS: FERROUS SULFATE 325 MG TAB PO SCH (08:35)
[2018-11-28] MEDS: LIDOCAINE 5% PATCH TOPICAL SCH (08:35)
[2018-11-28] MEDS: MAGNESIUM OXIDE 400 MG TAB PO SCH (08:35)
[2018-11-28] MEDS: ATORVASTATIN 40 MG TAB PO SCH (08:35)
[2018-11-28] MEDS: hydrALAZINE HCL 50 MG TAB PO SCH (08:35)
[2018-11-28] MEDS: METOLAZONE 2.5 MG TAB PO SCH (08:35)
[2018-11-28] MEDS: predniSONE 5 MG TAB PO SCH (08:36)
[2018-11-28] MEDS: VIT A,C & E-LUTEIN-MINERALS 1 EACH TAB PO SCH (08:36)
[2018-11-28] MEDS: TACROLIMUS 1 MG CAP PO SCH (08:36)
[2018-11-28] MEDS: MYCOPHENOLATE MOFETIL 250 MG CAP PO SCH (08:36)
[2018-11-28] MEDS ORDERED: POTASSIUM CHLORIDE ER 20 MEQ TAB.ER PO STA (09:04)
--- NOTE | 2018-11-28 09:50 | P.PN ---
Subjective Patient is seen in follow-up for acute kidney injury on chronic kidney disease. Patient is chronic kidney disease stage III with baseline creatinine in the range of 1.7-1.8. Recently her creatinine has been in the range of 2-2.3. Patient has history of living unrelated renal transplant from [facility] since 2004. She is maintained on Prograf, CellCept and prednisone for immunosuppression. She presented with dyspnea and fluid overload. Currently maintained on Lasix 60 mg IV twice daily. Renal function is worse with creatinine up at 2.9 today. Edema is gradually improving. Vital signs are stable. General: The patient appeared well nourished and normally developed. HEENT: Head exam is unremarkable. Neck is without jugular venous distension. LUNGS: Lungs are clear to auscultation and percussion. Breath sounds decreased. HEART: Rate and Rhythm are regular. First and second heart sounds normal. No murmurs, rubs or gallops. ABDOMEN: Abdominal exam reveals normal bowel sounds. Non-tender and non- distended. No evidence of peritonitis. EXTREMITITES: 1+ edema. Objective - Vital Signs Vital signs: Vital Signs Temp 98 F 11/28/18 07:00 Pulse 71 11/28/18 07:00 Resp 17 11/28/18 07:00 BP 152/61 11/28/18 07:00 Pulse Ox 95 11/28/18 07:00 Intake & Output 11/27/18 11/28/18 11/28/18 18:59 06:59 18:59 Output Total 900 Balance -900 Output: Urine 900 Other: Voiding Method Toilet Toilet # Voids 3 # Bowel Movements 1 - Labs CBC & Chem 7: 11/23/18 17:55 11/28/18 06:41 Labs: Abnormal Lab Results - Last 24 Hours (Table) 11/27/18 11/27/18 11/27/18 Range/Units 12:16 17:12 19:33 Sodium (137-145) mmol/L Potassium (3.5-5.1) mmol/L Chloride (98-107) mmol/L BUN (7-17) mg/dL Creatinine (0.52-1.04) mg/dL Glucose (74-99) mg/dL POC Glucose (mg/dL) 228 H 283 H 180 H (75-99) mg/dL 11/28/18 11/28/18 11/28/18 Range/Units 03:28 06:41 07:15 Sodium 135 L (137-145) mmol/L Potassium 3.2 L (3.5-5.1) mmol/L Chloride 97 L (98-107) mmol/L BUN 94 H (7-17) mg/dL Creatinine 2.90 H (0.52-1.04) mg/dL Glucose 146 H (74-99) mg/dL POC Glucose (mg/dL) 157 H 166 H (75-99) mg/dL Microbiology - Last 24 Hours (Table) 11/23/18 17:01 Blood Culture - Preliminary Blood No Growth after 96 hours Assessment and Plan Plan: Assessment: 1. Acute allograft dysfunction mostly prerenal secondary to cardiorenal syndrome. Creatinine 2.3 on admission and is 2.9 today which is due to diuresis. 2. Chronic kidney disease stage III with baseline creatinine in the range of 1.7-1.8. Recently her creatinine has been in the range of 2-2.3. 3. Dyspnea secondary to volume overload. Better. 4. Diastolic CHF with mild to moderate mitral stenosis and moderate to severe tricuspid regurgitation. 5. Severe pulmonary hypertension. 6. Anemia of chronic kidney disease. Iron deficiency noted. Status post 3 doses of IV iron. 7. Status post living unrelated renal transplant from a list if [place] in 2004. 8. Hypokalemia secondary to diuresis. 9. History of coronary artery disease. Patient has undergone angioplasty with stent placement at [facility] in 1996. Plan: I will change Lasix to 40 mg orally twice daily. Low-salt diet and 1500 mL fluid restriction. Maintain immunosuppression medications. Maintain Aranesp. Repeat electrolytes in the morning. Replace potassium. 60 mg today.
[2018-11-28] MEDS: SODIUM FERRIC GLUCONAT-SUCROSE 125 MG in SODIUM CHLORIDE 0.9% 100 ML IVPB SCH (09:51)
[2018-11-28 11:36] LABS: Glucose,Whole Blood 255 mg/dL (75-99)
--- NOTE | 2018-11-28 13:53 | P.DS ---
Providers Date of admission: 11/23/18 21:00 Attending physician: Pepito Carter MD Consults: 11/23/18 20:55 Consult Physician Stat Consulting Provider: Heidi Ahmadi Consult Reason/Comments: CHF Do you want consulting provider notified?: Yes Consult Physician Stat Consulting Provider: Dori Hussein Consult Reason/Comments: ckd Do you want consulting provider notified?: Yes 11/23/18 22:45 Consult Physician Routine Consulting Provider: Aman Johnson Consult Reason/Comments: CKD, h/o renal transplant, CHF Do you want consulting provider notified?: Yes 11/26/18 04:50 Consult Physician Routine Consulting Provider: Chava Cook Consult Reason/Comments: new onset a-fib Do you want consulting provider notified?: Yes, Notify in am Primary care physician: [facility] Course: Principal diagnosis: Respiratory failure, diastolic congestive heart failure, elevated troponin with acute coronary syndrome, pulmonary hypertension, chronic kidney disease, post renal transplant, type 2 diabetes, hyperlipidemia, chronic edema and valvular heart disease. This is a 68-year-old female patient of Dr. Cordova, Dr. NAINA Ahmadi, Dr. Hussein with past medical history of diabetes mellitus on insulin pump, CAD status post PTCA and stenting of mid circumflex November 2016 subsequent pseudoaneurysm with surgical repair, GERD, hyperlipidemia, hypertension, end-stage renal disease status post renal transplant in 2004 at [facility] and follows every 6 months, anemia of chronic disease. Patient has received Procrit as well as iron infusion by Dr. Hussein. Patient had a recent hospitalization at the end of October 2018 for acute diastolic heart failure. Patient's son Dr. Cordova last week and at that time her breathing was okay but over the weekend it became much more difficult and her oxygen needs increased. Patient is normally on 3 L nasal cannula and this was increased to 3-1/2 or 4 L and her saturations were not improving. She was seen by home care nurse on Wednesday and plan was to monitor. On Wednesday she was at Dr. Hussein's office and Lasix was added at 40 mg daily and metolazone on hold. Procrit infusion was to be set up. On Wednesday her home care nurse reassessed her and her pulse ox was low and they tried percussion but it did not seem to help. Patient has had no recent weight change. Patient normally runs between 195 and 198 pounds. Patient came into [facility] emergency center for evaluation. She was afebrile, heart rate 81, blood pressure 173/74, pulse ox 96%, hemoglobin 8.5, BUN 87 creatinine 2.31, blood sugar 164. Troponin negative 1. ProBNP 1630. EKG was a sinus rhythm with left axis deviation. Patient was started on IV Lasix and Nitropaste. Chest x-ray marked cardiogenic pulmonary edema with prominent pleural effusions and atelectasis of the lower lobes greater on the left. Repeat chest x-ray this morning showed heart failure similar to comparison. Echocardiogram in October revealed EF 65-70%, LA severely dilated over 40, no aortic stenosis, moderate MR, mitral valve severely thickened, moderate to severe tricuspid regurgitation, severe pulmonary hypertension. Patient does not have any history of sleep studies in the past however the mentions that she is a snorer. Consults requested with nephrology, cardiology and pulmonary medicine. 11/25: Patient has been afebrile, pulse ox 93% on 5 L nasal cannula. Heart rate running in the 80s and 90s, blood pressure 134/58. BUN 83 and creatinine 2.44, capillary blood glucose running between 103 and 254. Iron 30, TIBC 239, iron saturation 12.55, ferritin 581.5. Lower extremity edema is improved from yesterday. Respiratory status is improved from yesterday. Lasix has been decreased to 60 mg IV twice daily by nephrology. Patient is continued on low salt diet and fluid restriction. Ferrlecit has been ordered for 3 days starting today and continued on Aranesp. 11/26: Patient is feeling slightly bit better, on 3 L for 2 with pulse ox running around 94 percentile. Kidney function has not changed too much, blood sugar has been better. Patient still having mild dyspnea on and shortness of breath with mild fluid overload. I reviewed patient is under aspirin the current finding looking into the evidence-based specially with her elevated troponin and recurrent sinus symptom of heart failure which could be flush pulmonary edema related to unstable angina from existing blockage in her coronary artery. With her complication last time she had angioplasty and stent placement patient would prefer to have her testing done at [facility] close to her transplant team if needed especially having to use iodine dye for her heart catheter. Will address this with cardiology in town and prepare patient when she is ready to either be discharged and go to [facility] for outpatient follow up or if continue to have recurrent symptom might need to be transfer from hospital to hospital for potential need for angiogram and angioplasty. 11/27: Patient is sitting in her recliner using her BiPAP at the time still having mild dyspnea and shortness of breath still having symptom with minimum exertion. Still in A. fib with RVR patient will probably need to be on anticoagulation as well. Objective - Vital Signs Vital signs: Vital Signs Temp 98.1 F 11/27/18 07:12 Pulse 80 11/27/18 12:40 Resp 16 11/27/18 07:12 BP 153/70 11/27/18 07:12 Pulse Ox 92 L 11/27/18 07:12 Intake & Output 11/26/18 11/27/18 11/27/18 18:59 06:59 18:59 Intake Total 590 Output Total 900 900 Balance -310 -900 Weight 91.5 kg Intake: Oral 590 Output: Urine 900 900 Other: Voiding Method Toilet Toilet Toilet # Voids 2 3 # Bowel Movements 1 - Exam Review of system: CONSTITUTIONAL: Well-developed no acute respiratory distress. Mildly overweight EYES: No icterus sclerae, no conjunctivitis. EARS, NOSE, MOUTH, THROAT, and FACE: No sore throat, lymphadenopathy, carotid bruits or deformity. RESPIRATORY: Mild shortness of breath and dyspnea with mild cough. CARDIOVASCULAR: Heart failure with possible sign and symptom of instable angina as a flush pulmonary edema GASTROINTESTINAL: No Abd pain, Nausea or vomiting, no Diarrhea or constipation, No GI Bleed, no distention or masses. GENITOURINARY: Negative for Hematuria or UTI, no kidney stones. INTEGUMENT/BREAST: Positive edema with positive arthritis HEMATOLOGIC/LYMPHATIC: Negative for bleed or purpura. MUSCULOSKELTAL: Negative for Myalgia or arthralgia. NEURLOGICAL: No LOC, Sz or syncope, blurred vision dizziness or abnormality.. BEHAVIORAL/PSYCH: Negative. ENDOCRINE: Negative. Physical examination: General Appearance: Alert, cooperative, no distress, appears stated age. Mildly overweight still using BiPAP when she is napping Neck HEENT: Supple, no lymphadenopathy, no thyroid enlargement, no carotid bruits. Lungs: Decreased breath some bilateral fine rhonchi no crackles. Chest Wall: Decreased expansion with the respiration positive use of accessory muscle. Heart: Regular rate and rhythm, S1, S2 normal, no murmur, rub or gallop. Back: Symmetric, no curvature, ROM normal, no CVA tenderness. Abdomen: Soft, non-tender, bowel sounds active all four quadrants, no masses, no organomegaly. Extremities: 1+ edema with mild arthralgia both knees and hips.. Pulses: 2+ and symmetric. Skin: Skin color, texture, tugor normal, no rashes or lesions. Neurologic: Alert oriented x3 cranial nerves II through XII intact, no motor deficit, no abnormal balance or gait. - Labs CBC & Chem 7: 11/23/18 17:55 11/26/18 08:45 Labs: Abnormal Lab Results - Last 24 Hours (Table) 11/26/18 11/26/18 11/27/18 Range/Units 17:05 20:38 06:50 POC Glucose (mg/dL) 210 H 148 H 120 H (75-99) mg/dL 11/27/18 Range/Units 12:16 POC Glucose (mg/dL) 228 H (75-99) mg/dL Microbiology - Last 24 Hours (Table) 11/23/18 17:01 Blood Culture - Preliminary Blood No Growth after 72 hours Assessment and Plan Plan: 1 Acute on chronic hypoxic respiratory failure: Secondary to acute on chronic diastolic congestive heart failure with possible instable angina possible coronary artery disease causing more blockage and more abnormality. Continue medical management, still seen pulmonary, still seen cardiology. 2 unstable angina: With recurrent sign and symptom of GA and elevated troponin patient had stent of the RCA and LAD still seen cardiology regular basis with her medical management with a complicated problem after her last angioplasty patient was resistant to go for any further cardiac testing. 3 severe pulmonary hypertension: Patient has been on medical management and she will require sleep study as an outpatient. 4 acute allograft dysfunction secondary to cardiorenal syndrome: Patient still seen nephrology regular basis no dialysis needed her kidney function had declined slightly lately. 5 chronic kidney disease stage IV seen nephrology still on conservative management no need for hemodialysis. 6 type 2 diabetes: On insulin pump her blood sugar slightly but better. 7 hyperlipidemia: Still on atorvastatin 40 mg daily. 8 chronic edema: Still on diuretics with her swelling slightly but better at this point. 9 chronic valvular heart disease with moderate to severe tricuspid regurgitation and mitral regurgitation seen cardiology. 10 chronic anemia secondary to chronic kidney disease has been on iron supplement and Aranesp, along with Procrit. Discussed the final agreement with cardiology and nephrology, all agreeable that patient might need to go for heart cath. She will contact her campus receptionist in [facility] and hopefully will be seen him closely as an outpatient and plan heart cath accordingly. If for any reason patient ended up back in the hospital with another flush pulmonary edema and worsening congestive heart failure she should be transfer from hospital to hospital. Patient Condition at Discharge: Stable Plan - Discharge Summary Discharge Rx Participant: No New Discharge Prescriptions: New Furosemide [Lasix] 40 mg PO BID@0900,1600 #120 tab Potassium Chloride [Klor-Con 20] 20 meq PO DAILY #60 tab Continue Ascorbic Acid [Vitamin C] 500 mg PO DAILY predniSONE 5 mg PO DAILY Tacrolimus [Prograf] 3 mg PO QAM Aspirin EC [Ecotrin Low Dose] 81 mg PO DAILY Multivit-Min/Iron/Folic/Lutein [Centrum Silver Women Tablet] 1 tab PO DAILY Nitroglycerin Sl Tabs [Nitrostat] 0.4 mg SUBLINGUAL Q5M PRN PRN Reason: Chest Pain Vitamin B Complex 1 cap PO DAILY Albuterol Inhaler [Ventolin Hfa Inhaler] 2 puff INHALATION RT-Q4H PRN PRN Reason: Shortness Of Breath Glucagon Emergency Kit 1 mg IM DIRECTED PRN PRN Reason: SEVERE HYPOGLYCEMIA INSULIN LISPRO (For Pump) [humaLOG (For Pump)] 0.01 units SQ-PUMP CONTINUOUS PRN PRN Reason: Blood Sugar - High Ubidecarenone [Coenzyme Q10] 100 mg PO DAILY Biotin 5,000 mcg PO DAILY Ranitidine HCl [Zantac] 150 mg PO DAILY Tacrolimus [Prograf] 2 mg PO HS Lidocaine 5% Patch [Lidoderm 5% Patch] 1 patch TRANSDERM DAILY Phenyleph/Pramoxin/Glycr/W.pet [Preparation H Cream] 1 dose RECTAL BID PRN PRN Reason: swelling Docusate [Colace] 100 mg PO BID PRN PRN Reason: Constipation Magnesium Oxide [Mag-Ox] 250 mg PO Q48H Darbepoetin Naveed [Aranesp] 25 mcg SQ Q7D Carvedilol [Coreg] 12.5 mg PO BID Bisacodyl [Dulcolax] 10 mg PO DAILY PRN PRN Reason: Constipation Acetaminophen [Tylenol] 500 mg PO Q8H PRN PRN Reason: Pain Ferrous Sulfate [Feosol] 325 mg PO DAILY Mycophenolate Mofetil [Cellcept] 750 mg PO BID hydrALAZINE HCL [Apresoline] 100 mg PO TID Atorvastatin [Lipitor] 40 mg PO DAILY Ondansetron [Zofran ODT] 8 mg SL Q8HR PRN PRN Reason: Nausea And Vomiting amLODIPine [Norvasc] 10 mg PO DAILY Metolazone [Zaroxolyn] 2.5 mg PO Q48H Sennosides [Senna] 8.6 mg PO BID PRN PRN Reason: CONSTIPATION Discontinued Furosemide [Lasix] 40 mg PO DAILY Discharge Medication List Ascorbic Acid [Vitamin C] 500 mg PO DAILY 04/09/15 [History] Aspirin EC [Ecotrin Low Dose] 81 mg PO DAILY 04/09/15 [History] Tacrolimus [Prograf] 3 mg PO QAM 04/09/15 [History] predniSONE 5 mg PO DAILY 04/09/15 [History] Multivit-Min/Iron/Folic/Lutein [Centrum Silver Women Tablet] 1 tab PO DAILY 02/14 [History] Nitroglycerin Sl Tabs [Nitrostat] 0.4 mg SUBLINGUAL Q5M PRN 03/04/16 [History] Vitamin B Complex 1 cap PO DAILY 03/04/16 [History] Albuterol Inhaler [Ventolin Hfa Inhaler] 2 puff INHALATION RT-Q4H PRN 09/16/16 [ History] Glucagon Emergency Kit 1 mg IM DIRECTED PRN 09/16/16 [History] INSULIN LISPRO (For Pump) [humaLOG (For Pump)] 0.01 units SQ-PUMP CONTINUOUS PRN 11/26/16 [History] Biotin 5,000 mcg PO DAILY 06/09/17 [History] Ranitidine HCl [Zantac] 150 mg PO DAILY 06/09/17 [History] Ubidecarenone [Coenzyme Q10] 100 mg PO DAILY 06/09/17 [History] Tacrolimus [Prograf] 2 mg PO HS 03/17/18 [History] Acetaminophen [Tylenol] 500 mg PO Q8H PRN 10/19/18 [History] Atorvastatin [Lipitor] 40 mg PO DAILY 10/19/18 [History] Bisacodyl [Dulcolax] 10 mg PO DAILY PRN 10/19/18 [History] Carvedilol [Coreg] 12.5 mg PO BID 10/19/18 [History] Darbepoetin Naveed [Aranesp] 25 mcg SQ Q7D 10/19/18 [History] Docusate [Colace] 100 mg PO BID PRN 10/19/18 [History] Ferrous Sulfate [Feosol] 325 mg PO DAILY 10/19/18 [History] Lidocaine 5% Patch [Lidoderm 5% Patch] 1 patch TRANSDERM DAILY 10/19/18 [History ] Magnesium Oxide [Mag-Ox] 250 mg PO Q48H 10/19/18 [History] Mycophenolate Mofetil [Cellcept] 750 mg PO BID 10/19/18 [History] Ondansetron [Zofran ODT] 8 mg SL Q8HR PRN 10/19/18 [History] Phenyleph/Pramoxin/Glycr/W.pet [Preparation H Cream] 1 dose RECTAL BID PRN 10/19 [History] hydrALAZINE HCL [Apresoline] 100 mg PO TID 10/19/18 [History] amLODIPine [Norvasc] 10 mg PO DAILY 10/20/18 [History] Metolazone [Zaroxolyn] 2.5 mg PO Q48H 11/23/18 [History] Sennosides [Senna] 8.6 mg PO BID PRN 11/23/18 [History] Furosemide [Lasix] 40 mg PO BID@0900,1600 #120 tab 11/28/18 [Rx] Potassium Chloride [Klor-Con 20] 20 meq PO DAILY #60 tab 11/28/18 [Rx] Follow up Appointment(s)/Referral(s): Dori Hussein MD [STAFF PHYSICIAN] - 12/06/18 1:40 pm Ramo Garsia MD [REFERRING] - 1 Week Refugio Cordova MD [Primary Care Provider] - 11/30/18 9:30 am (With Jenniffer REYNOSO) [facility], [NON-STAFF] - Patient Instructions/Handouts: Acute Kidney Injury (DC) Discharge Disposition: HOME WITH HOME HEALTH SERVICES
[2018-11-28] MEDS ORDERED: FUROSEMIDE 40 MG TAB PO SCH (16:00)
== END 2018-11-28 12:50 | disposition home health service (06) | DRG 291 ==
LOC: EC 17:15 → 4SSUR 21:00
PROVIDERS: ADMIT Internal Medicine; ATTEND Internal Medicine
PROC: 5A09357 Assistance with Respiratory Ventilation, Less than 24 Consecutive Hours, Continuous Positive Airway Pressure (ICD-10-PCS; principal; 2018-11-24)
DX: I13.2 Hypertensive heart and chronic kidney disease with heart failure and with stage 5 chronic kidney disease, or end stage renal disease (principal); I50.33 Acute on chronic diastolic (congestive) heart failure; J96.21 Acute and chronic respiratory failure with hypoxia; I24.9 Acute ischemic heart disease, unspecified; J98.11 Atelectasis; N17.9 Acute kidney failure, unspecified; T86.12 Kidney transplant failure; D63.1 Anemia in chronic kidney disease; E11.22 Type 2 diabetes mellitus with diabetic chronic kidney disease; E61.1 Iron deficiency; E78.5 Hyperlipidemia, unspecified; E87.6 Hypokalemia; I08.1 Rheumatic disorders of both mitral and tricuspid valves; I25.110 Atherosclerotic heart disease of native coronary artery with unstable angina pectoris; I27.20 Pulmonary hypertension, unspecified; I48.91 Unspecified atrial fibrillation; K21.9 Gastro-esophageal reflux disease without esophagitis; T50.2X5A Adverse effect of carbonic-anhydrase inhibitors, benzothiadiazides and other diuretics, initial encounter; E11.40 Type 2 diabetes mellitus with diabetic neuropathy, unspecified; E66.9 Obesity, unspecified; Z68.33 Body mass index [BMI] 33.0-33.9, adult; Z79.4 Long term (current) use of insulin; Z79.52 Long term (current) use of systemic steroids; Z79.82 Long term (current) use of aspirin; Z79.899 Other long term (current) drug therapy; Z95.5 Presence of coronary angioplasty implant and graft; Z96.41 Presence of insulin pump (external) (internal); Z88.2 Allergy status to sulfonamides; Z88.8 Allergy status to other drugs, medicaments and biological substances; Z88.1 Allergy status to other antibiotic agents; Z91.030 Bee allergy status; Z82.49 Family history of ischemic heart disease and other diseases of the circulatory system; Z80.9 Family history of malignant neoplasm, unspecified
CPT/HCPCS: 36415; 71045; 71046; 80048; 80053; 80197; 82550; 82553; 82728; 83036; 83540; 83550; 83735; 83880; 84484; 85025; 85610; 85730; 87040; 93005; 94640; 94660; 94760; 96374; 99285

== ENCOUNTER → 2018-12-05 | Outpatient (CLI) | payer MEDICARE ==
[2018-12-05 15:49] LABS: Appearance,Urine Clear (Clear); Bilirubin,Urine Negative (Negative); Blood,Urine Negative (Negative); Color,Urine Yellow; Glucose,Urine (UA) Negative (Negative); Ketones,Urine Negative (Negative); Leukocyte Esterase,Urine Small (Negative); Nitrite,Urine Negative (Negative); PH, Urine 5.5 (5.0-8.0); Protein,Urine 1+ (Negative); RBC,Urine 1 /hpf (0-5); Specific Gravity,Urine 1.009 (1.001-1.035); Urobilinogen,Urine <2.0 mg/dL (<2.0); WBC,Urine 15 /hpf (0-5)
[2018-12-05 16:55] LABS: Parathyroid Hormone Intact 135.9 pg/mL (14.0-72.0)
[2018-12-05 17:11] LABS: Vitamin D 25 Hydroxy 46.6 ng/mL (30.0-100.0)
[2018-12-05 17:17] LABS: Iron Saturation 12.77 (12.00-45.00)
[2018-12-05 18:49] LABS: Magnesium 2.5 mg/dL (1.5-2.4); Uric Acid 13.9 mg/dL (2.9-7.7)
[2018-12-05 19:54] LABS: Creatinine,Urine Random 40.4 mg/dL
[2018-12-05 20:32] LABS: Total Protein,Urine Random 45.2 mg/dL (0.0-13.5)
== END | disposition home or self-care (01) ==
LOC: LABWHC1 08:36
PROVIDERS: ATTEND Internal Medicine Nephrology
DX: N18.4 Chronic kidney disease, stage 4 (severe) (principal); D63.1 Anemia in chronic kidney disease; E55.9 Vitamin D deficiency, unspecified; N25.81 Secondary hyperparathyroidism of renal origin; E83.39 Other disorders of phosphorus metabolism; M10.9 Gout, unspecified; N39.0 Urinary tract infection, site not specified; D50.9 Iron deficiency anemia, unspecified; Z94.0 Kidney transplant status
CPT/HCPCS: 36415; 81001; 82306; 82570; 82728; 83540; 83550; 83735; 83970; 84156; 84550

== ENCOUNTER → 2019-07-18 | Outpatient (CLI) | payer MEDICARE ==
[2019-07-19 13:42] LABS: Hepatitis B Virus DNA Not detected (Not detected); Hepatitis B Virus DNA, Quant <10 IU/mL (<10); Log HBV IU/mL <1.00 (<1.00)
== END | disposition home or self-care (01) ==
LOC: LABWHC1 13:11
PROVIDERS: ATTEND Physician Assistant
DX: R76.8 Other specified abnormal immunological findings in serum (principal); T86.12 Kidney transplant failure
CPT/HCPCS: 36415; 87517

== ENCOUNTER 2019-10-14 16:31 | Emergency (ER) | payer MEDICARE ==
[2019-10-14 16:41] VITALS: BP 109/61; PULSE 72; TEMP 99.2
[2019-10-14] MEDS ORDERED: SODIUM CHLORIDE 0.9% 1,000 ML IV STA (17:09)
[2019-10-14 17:12] VITALS: RESP 20
[2019-10-14 17:33] LABS: Anisocytosis Slight; Basophils % (A) 0 %; Eosinophils # (A) 0.2 k/uL (0-0.7); Eosinophils % (A) 1 %; HCT 30.2 % (34.0-46.0); HGB 9.7 gm/dL (11.4-16.0); Hypochromasia Slight; Lymphocytes # (A) 1.1 k/uL (1.0-4.8); Lymphocytes % (A) 9 %; MCH 29.9 pg (25.0-35.0); MCHC 32.2 g/dL (31.0-37.0); MCV 92.7 fL (80.0-100.0); Mean Platelet Volume 6.9; Monocytes # (A) 0.5 k/uL (0-1.0); Monocytes % (A) 4 %; Neutrophils # (A) 10.3 k/uL (1.3-7.7); Neutrophils % (A) 84 %; Platelet Count 397 k/uL (150-450); RBC 3.26 m/uL (3.80-5.40); RDW 16.6 % (11.5-15.5); WBC 12.3 k/uL (3.8-10.6)
--- NOTE | 2019-10-14 17:39 | XR ---
EXAMINATION TYPE: XR chest 2V DATE OF EXAM: 10/14/2019 COMPARISON: 11/24/2018 HISTORY: Short of breath TECHNIQUE: 2 views FINDINGS: Heart is enlarged. There is no gross heart failure. There is coarsening of the lung marking s. There is mild atelectasis at the left lung base. Bony thorax is intact. IMPRESSION: Cardiomegaly. Minimal atelectasis left lung base. No obvious heart failure. There is karen ring of the congestive heart failure compared to old exam.
[2019-10-14 17:43] LABS: Albumin 3.7 g/dL (3.5-5.0); Calcium 9.1 mg/dL (8.4-10.2); Potassium 4.3 mmol/L (3.5-5.1); Total Bilirubin 0.7 mg/dL (0.2-1.3); Total Protein 6.8 g/dL (6.3-8.2)
--- NOTE | 2019-10-14 18:11 | ED ---
General Adult HPI - General Source: patient Mode of arrival: wheelchair Limitations: no limitations <Rosalio Darling - Last Filed: 10/14/19 19:06> <Violeta Cheatham - Last Filed: 10/16/19 14:28> - General Chief complaint: Recheck/Abnormal Lab/Rx Stated complaint: Fever, Diarrhea Time Seen by Provider: 10/14/19 16:53 - History of Present Illness Initial comments: patient is 69-year-old female presenting to the emergency department with a chief complaint of fever and diarrhea. patient reports she was diagnosed with pneumonia 2 weeks ago and was started on doxycycline. Patient reports he finished the whole treatment in her cough along with shortness of breath has improved. patient reports onset of dyspnea after she was diagnosed with pneumonia which has gradually improved since. patient does report a fever over the last 2 day that has been fluctuating between 99 and 101.patient is complaining of nonbloody diarrhea over the last few days that has otherwise been insignificant. Denies any abdominal pain back pain or chest pain. Denies taking any other medication to alleviate the symptoms. Patient is on dialysis and has heart failure. (Rosalio Darling) - Related Data Home Medications Medication Instructions Recorded Confirmed Ascorbic Acid [Vitamin C] 500 mg PO DAILY 04/09/15 11/23/18 Aspirin EC [Ecotrin Low Dose] 81 mg PO DAILY 04/09/15 11/23/18 Tacrolimus [Prograf] 3 mg PO QAM 04/09/15 11/23/18 predniSONE 5 mg PO DAILY 04/09/15 11/23/18 Multivit-Min/Iron/Folic/Lutein 1 tab PO DAILY 03/04/16 11/23/18 [Centrum Silver Women Tablet] Nitroglycerin Sl Tabs [Nitrostat] 0.4 mg SUBLINGUAL Q5M PRN 03/04/16 11/23/18 Vitamin B Complex 1 cap PO DAILY 03/04/16 11/23/18 Albuterol Inhaler [Ventolin Hfa 2 puff INHALATION RT-Q4H PRN 09/16/16 11/23/18 Inhaler] Glucagon Emergency Kit 1 mg IM DIRECTED PRN 09/16/16 11/23/18 INSULIN LISPRO (For Pump) [humaLOG 0.01 units SQ-PUMP CONTINUOUS PRN 11/26/16 11/23/18 (For Pump)] Biotin 5,000 mcg PO DAILY 06/09/17 11/23/18 Ranitidine HCl [Zantac] 150 mg PO DAILY 06/09/17 11/23/18 Ubidecarenone [Coenzyme Q10] 100 mg PO DAILY 06/09/17 11/23/18 Tacrolimus [Prograf] 2 mg PO HS 03/17/18 11/23/18 Acetaminophen [Tylenol] 500 mg PO Q8H PRN 10/19/18 11/23/18 Atorvastatin [Lipitor] 40 mg PO DAILY 10/19/18 11/23/18 Bisacodyl [Dulcolax] 10 mg PO DAILY PRN 10/19/18 11/23/18 Carvedilol [Coreg] 12.5 mg PO BID 10/19/18 11/23/18 Darbepoetin Naveed [Aranesp] 25 mcg SQ Q7D 10/19/18 11/23/18 Docusate [Colace] 100 mg PO BID PRN 10/19/18 11/23/18 Ferrous Sulfate [Feosol] 325 mg PO DAILY 10/19/18 11/23/18 Lidocaine 5% Patch [Lidoderm 5% 1 patch TRANSDERM DAILY 10/19/18 11/23/18 Patch] Magnesium Oxide [Mag-Ox] 250 mg PO Q48H 10/19/18 11/23/18 Mycophenolate Mofetil [Cellcept] 750 mg PO BID 10/19/18 11/23/18 Ondansetron [Zofran ODT] 8 mg SL Q8HR PRN 10/19/18 11/23/18 Phenyleph/Pramoxin/Glycr/W.pet 1 dose RECTAL BID PRN 10/19/18 11/23/18 [Preparation H Cream] hydrALAZINE HCL [Apresoline] 100 mg PO TID 10/19/18 11/23/18 amLODIPine [Norvasc] 10 mg PO DAILY 10/20/18 11/23/18 Metolazone [Zaroxolyn] 2.5 mg PO Q48H 11/23/18 11/23/18 Sennosides [Senna] 8.6 mg PO BID PRN 11/23/18 11/23/18 Previous Rx's Medication Instructions Recorded Furosemide [Lasix] 40 mg PO BID@0900,1600 #120 tab 11/28/18 Potassium Chloride [Klor-Con 20] 20 meq PO DAILY #60 tab 11/28/18 Allergies Allergy/AdvReac Type Severity Reaction Status Date / Time Sulfa (Sulfonamide Allergy Rash/Hives Verified 10/14/19 16:41 Antibiotics) vancomycin Allergy Rash/Hives Verified 10/14/19 16:41 venom-honey bee Allergy Swelling Verified 10/14/19 16:41 [bee venom (honey bee)] metoprolol tartrate AdvReac Confusion Verified 10/14/19 16:41 [From Lopressor] Review of Systems ROS Other: All systems not noted in ROS Statement are negative. <Rosalio Darling - Last Filed: 10/14/19 19:06> ROS Other: All systems not noted in ROS Statement are negative. <Violeta Cheatham - Last Filed: 10/16/19 14:28> ROS Statement: Those systems with pertinent positive or pertinent negative responses have been documented in the HPI. Past Medical History Past Medical History: Coronary Artery Disease (CAD), Diabetes Mellitus, H yperlipidemia, Hypertension, Renal Disease Additional Past Medical History / Comment(s): Chronic renal disease stage III with previous renal transplant 2004 , chronic anemia, IDDM with insulin pump, gluten free diet, neuropathy. Stenosis, DDD of back, States abnormal stress test. pt had recent back surg. at [facility] Aug 09 2018 History of Any Multi-Drug Resistant Organisms: None Reported Past Surgical History: Section, Heart Catheterization, Heart Catheterization With Stent, Orthopedic Surgery Additional Past Surgical History / Comment(s): 2005 Kidney transplant at [facility], bilateral cataracts, retinal peeling in left eye, L achilles tendon repair , L upper arm dialysis fistula, has a total of 4cardiac stents, 2 c/s. Past Anesthesia/Blood Transfusion Reactions: Motion Sickness, Postoperative Nausea & Vomiting (PONV) Additional Past Anesthesia/Blood Transfusion Reaction / Comment(s): PONV after C/S Date of Last Stent Placement:: 2016. Past Psychological History: No Psychological Hx Reported Smoking Status: Never smoker Past Alcohol Use History: Rare Past Drug Use History: Marijuana - Past Family History Father Family Medical History: Myocardial Infarction ([place]) Additional Family Medical History / Comment(s): Father at age 70 from myocardial infarction Mother Family Medical History: Cancer Additional Family Medical History / Comment(s): Mother at age 86 from pneumonia. Sister(s) Family Medical History: Cancer Additional Family Medical History / Comment(s): . <Rosalio Darling - Last Filed: 10/14/19 19:06> General Exam Limitations: no limitations <Rosalio Darling - Last Filed: 10/14/19 19:06> Course Vital Signs 10/14/19 10/14/19 16:38 17:10 Temperature 99.2 F Pulse Rate 72 Respiratory 18 20 Rate Blood Pressure 109/61 O2 Sat by Pulse 98 Oximetry Medical Decision Making - Lab Data Result diagrams: 10/14/19 17:21 10/14/19 17:21 <Rosalio Darling - Last Filed: 10/14/19 19:06> - Lab Data Result diagrams: 10/14/19 17:21 10/14/19 17:21 <Violeta Cheatham - Last Filed: 10/16/19 14:28> - Medical Decision Making patient is 69-year-old female presenting to emergency department with a chief complaint of fever and diarrhea. Patient was recently treated for pneumonia with doxycycline. Patient finished all treatment but continues to have on and off fever. Chest x-ray shows improvement in pulmonary congestion. CBC does show mild leukocytosis. Poor kidney function with the patient is on dialysis. Patient is slightly dyspneic although she states that has been gradually improving since the onset of the pneumonia. She does have an intermittent cough that is nonproductive but states that has also improved since she started antibiotics. Considering the patient is on dialysis, immunosuppressed due to an organ the list, heart failure and diabetic, I suggested the patient admission would be ideal in order to prevent any infections. Patient declined, and states that she would rather go home, organic food and get a good night sleep. she is comfortable to sign AMA. She states that she does not feel " that sick." haris santacruz advised to follow-up with primary care as soon as possible. Strict return parameters were thoroughly discussed the patient is understanding and agreeable. Case discussed with physician. (Rosalio Darling) I was available for consultation in the emergency department. The history and physical exam were done by the midlevel provider. I was consulted for this patients care. I reviewed the case with the midlevel provider and based on their presentation of the patient, I agree with the assessment, medical decision making and plan of care as documented. Chart was dictated using [employer] dictation software. Attempts were made to correct any dictation errors however some typographical errors may persist. (iVoleta Cheatham) - Lab Data Lab Results 10/14/19 10/14/19 Range/Units 17:21 17:21 WBC 12.3 H (3.8-10.6) k/uL RBC 3.26 L (3.80-5.40) m/uL Hgb 9.7 L (11.4-16.0) gm/dL Hct 30.2 L (34.0-46.0) % MCV 92.7 (80.0-100.0) fL MCH 29.9 (25.0-35.0) pg MCHC 32.2 (31.0-37.0) g/dL RDW 16.6 H (11.5-15.5) % Plt Count 397 (150-450) k/uL Neutrophils % 84 % Lymphocytes % 9 % Monocytes % 4 % Eosinophils % 1 % Basophils % 0 % Neutrophils # 10.3 H (1.3-7.7) k/uL Lymphocytes # 1.1 (1.0-4.8) k/uL Monocytes # 0.5 (0-1.0) k/uL Eosinophils # 0.2 (0-0.7) k/uL Basophils # 0.0 (0-0.2) k/uL Hypochromasia Slight Anisocytosis Slight Sodium 131 L (137-145) mmol/L Potassium 4.3 (3.5-5.1) mmol/L Chloride 93 L (98-107) mmol/L Carbon Dioxide 21 L (22-30) mmol/L Anion Gap 17 mmol/L BUN 32 H (7-17) mg/dL Creatinine 4.48 H (0.52-1.04) mg/dL Est GFR (CKD-EPI)AfAm 11 (>60 ml/min/1.73 sqM) Est GFR (CKD-EPI)NonAf 9 (>60 ml/min/1.73 sqM) Glucose 91 (74-99) mg/dL Calcium 9.1 (8.4-10.2) mg/dL Total Bilirubin 0.7 (0.2-1.3) mg/dL AST 28 (14-36) U/L ALT 16 (4-34) U/L Alkaline Phosphatase 93 (38-126) U/L Total Protein 6.8 (6.3-8.2) g/dL Albumin 3.7 (3.5-5.0) g/dL Disposition Is patient prescribed a controlled substance at d/c from ED?: No Time of Disposition: 19:02 <Rosalio Darling - Last Filed: 10/14/19 19:06> <Violeta Cheatham - Last Filed: 10/16/19 14:28> Clinical Impression: Fever Disposition: Left Against Medical Advice Condition: Stable Instructions (If sedation given, give patient instructions): Fever in Adults (ED) Additional Instructions: Please follow with primary care. Please return to emergency department symptoms worsen. Use Tylenol to alleviate the fever. Referrals: Refugio Cordova MD [Primary Care Provider] - 1-2 days
--- NOTE | 2019-10-18 00:26 | CDI ---
Dear Rosalio Darling PA-C: Please do addendum Physical Exam. Thank you, Kylee Dennison, Inpatient Services Rn. If you have any questions, please contact Tooth Clerk at [phone]. [facility]
== END 2019-10-14 19:24 | disposition left against medical advice (07) ==
LOC: EC 16:31
DX: R50.9 Fever, unspecified (principal); R09.89 Other specified symptoms and signs involving the circulatory and respiratory systems; D72.829 Elevated white blood cell count, unspecified; R06.00 Dyspnea, unspecified; R05 Cough; R19.7 Diarrhea, unspecified; I13.0 Hypertensive heart and chronic kidney disease with heart failure and stage 1 through stage 4 chronic kidney disease, or unspecified chronic kidney disease; I50.9 Heart failure, unspecified; N18.3 Chronic kidney disease, stage 3 (moderate); E11.22 Type 2 diabetes mellitus with diabetic chronic kidney disease; E11.40 Type 2 diabetes mellitus with diabetic neuropathy, unspecified; I25.10 Atherosclerotic heart disease of native coronary artery without angina pectoris; E78.5 Hyperlipidemia, unspecified; D63.1 Anemia in chronic kidney disease; Z88.1 Allergy status to other antibiotic agents; Z88.2 Allergy status to sulfonamides; Z88.8 Allergy status to other drugs, medicaments and biological substances; Z91.030 Bee allergy status; Z79.4 Long term (current) use of insulin; Z96.41 Presence of insulin pump (external) (internal); Z79.52 Long term (current) use of systemic steroids; Z79.82 Long term (current) use of aspirin; Z79.899 Other long term (current) drug therapy; Z94.0 Kidney transplant status; Z95.5 Presence of coronary angioplasty implant and graft; Z87.01 Personal history of pneumonia (recurrent); Z99.2 Dependence on renal dialysis; Z92.25 Personal history of immunosuppression therapy; Z82.5 Family history of asthma and other chronic lower respiratory diseases; Z53.20 Procedure and treatment not carried out because of patient's decision for unspecified reasons
CPT/HCPCS: 36415; 71046; 80053; 85025; 96360; 99284

== ENCOUNTER → 2019-11-09 | Outpatient (CLI) | payer MEDICARE ==
[2019-11-09 17:29] LABS: Anisocytosis Slight; HCT 28.3 % (34.0-46.0); HGB 8.8 gm/dL (11.4-16.0); Hypochromasia Marked; MCH 29.1 pg (25.0-35.0); MCHC 30.9 g/dL (31.0-37.0); MCV 94.1 fL (80.0-100.0); Mean Platelet Volume 7.1; Platelet Count 509 k/uL (150-450); RBC 3.01 m/uL (3.80-5.40); RDW 17.1 % (11.5-15.5); WBC 13.4 k/uL (3.8-10.6)
--- NOTE | 2019-11-09 21:57 | XR ---
EXAMINATION TYPE: XR knee complete LT DATE OF EXAM: 11/09/2019 CLINICAL HISTORY: Pain. TECHNIQUE: Three views of the left knee are obtained. COMPARISON: None. FINDINGS: There is no acute fracture/dislocation evident in left knee. Mild narrowing patellofemoral and medial tibiofemoral compartments. Demineralization is present. No significant spurring. Extensiv e overlying vascular calcification. IMPRESSION: As above.
--- NOTE | 2019-11-09 21:59 | XR ---
EXAMINATION TYPE: XR chest 2V DATE OF EXAM: 11/09/2019 COMPARISON: Chest x-ray October 14, 2019 and older x-rays. HISTORY: Cough. TECHNIQUE: Frontal and lateral views of the chest are obtained. FINDINGS: Redemonstration of partial visualization of surgical change in the lumbar spine. There is cardiomegaly with increased interstitial markings on background chronic parenchymal change. Persisten t left basilar opacity. No pneumothorax bilaterally. IMPRESSION: Suspect CHF exacerbation as there is cardiomegaly with mild interstitial edema and small left pleural effusion on current study. There is additional left basilar opacity thought to reflect acute infiltrate and/or atelectasis noted.
[2019-11-10 00:21] LABS: African American GFR (CKD) 9.5 (60.0-200.0); Albumin 4.1 g/dL (3.80-4.90); Albumin/Globulin Ratio 1.58 (1.60-3.17); Anion Gap 18.2 mmol/L (4.00-12.00); Calcium 8.8 mg/dL (8.7-10.3); Carbon Dioxide 20.8 mmol/L (21.6-31.8); Globulin 2.6 g/dL (1.6-3.3); Non-African American GFR(CKD) 8.2 (60.0-200.0); Potassium 4.2 mmol/L (3.5-5.5); Total Bilirubin 0.3 mg/dL (0.3-1.2); Total Protein 6.7 g/dL (6.2-8.2)
== END | disposition home or self-care (01) ==
LOC: LABWHC1 16:55
PROVIDERS: ATTEND Nurse Practitioner Gerontology
DX: I51.7 Cardiomegaly (principal); J90 Pleural effusion, not elsewhere classified; M81.0 Age-related osteoporosis without current pathological fracture; M25.862 Other specified joint disorders, left knee; N18.9 Chronic kidney disease, unspecified; R05 Cough; R60.9 Edema, unspecified
CPT/HCPCS: 36415; 71046; 80053; 83880; 85027; 87040

== ENCOUNTER → 2019-11-16 | Outpatient (CLI) | payer MEDICARE ==
--- NOTE | 2019-11-17 12:20 | CT ---
EXAMINATION TYPE: CT abdomen pelvis wo/w con DATE OF EXAM: 11/16/2019 COMPARISON: 04/09/2015 HISTORY: 69-year-old female cough and abdominal pain TECHNIQUE: Contiguous axial scanning of the abdomen and pelvis before and after administration of 80 ml Isovue 300 IV contrast. Delayed images through the kidneys and coronal/sagittal reconstructions p erformed. CT DLP: 2714 mGycm Automated exposure control for dose reduction was used. FINDINGS: Heart is mildly enlarged without pericardial effusion. Coronary vessel calcifications are present. There is a new small left pleural effusion with adjacent patchy opacity, probably atelectasis. Additi onal trace right effusion with adjacent patchy opacity. Small hiatal hernia. No focal liver lesions seen. Mild circumferential bladder wall thickening without abnormal distention. Adrenal glands and atrophic pancreas show no gross abnormality. Atretic [place] kidneys with extensive vascular calcifications. Numerous calcified granulomas within the spleen. No dilated small bowel, free fluid, or free air. Scattered prominent fluid-filled small bowel loops a re present. Normal appendix. Liquid stool seen throughout the colon. Left-sided colonic diverticulosis without pe ricolonic inflammatory change. Varices are noted along the right gonadal vein. A few prominent left periaortic lymph nodes measuring up to 5 mm. Mild generalized anasarca change. Right lower quadrant transplant kidney is demonstrated and shows no hydronephrosis. A 1.6 cm cortical cyst at the upper pole has increased in size from 2015. Suspect additional tiny cortical cysts at th e lower pole measuring up to 7 mm. These are very small and indeterminate. Delayed scan shows no excretion of contrast from the right lower quadrant transplant. Moderate circumferential bladder wall thickening. Uterus is anteverted with arcuate vessel calcificat ions. Both ovaries are visualized. No abnormal fluid collection in the pelvis or pelvic lymphadenopat hy. Right external iliac chain lymph nodes measure up to 7 mm. Bones: Mild degenerative changes of the hips. Patient is status post L2-L5 posterior lumbar fusion wi th laminectomies. IMPRESSION: 1. NOTE THAT THERE WAS DISCREPANCY IN THE ORDER (ABDOMEN AND PELVIS) AND SLOTTED SCHEDULE (CHEST, ABD OMEN, AND PELVIS). THE ABDOMEN AND PELVIS WAS SCANNED A NEW ORDER COULD NOT BE OBTAINED (OFFICE CL OSED). 2. MILD GENERALIZED ANASARCA CHANGE. SMALL LEFT AND TRACE RIGHT EFFUSIONS. CORRELATE FOR FLUID OVERLO AD STATE. 3. PATCHY BIBASILAR OPACITIES ADJACENT TO THE EFFUSIONS PROBABLY REPRESENT ATELECTASIS. PNEUMONIA TWAN ULD BE EXCLUDED ON A CLINICAL BASIS. 4. PROMINENT FLUID-FILLED SMALL BOWEL LOOPS THROUGHOUT ALONG WITH LIQUID STOOL IN THE COLON. CORRELAT E FOR ENTERITIS. 5. RIGHT LOWER QUADRANT TRANSPLANT KIDNEY SHOWS NO CONTRAST EXCRETION ON THE DELAYED SERIES. CORRELAT E WITH PATIENT'S KIDNEY FUNCTION TO EXCLUDE NOELLE. 6. MODERATE CIRCUMFERENTIAL BLADDER WALL THICKENING COULD BE CHRONIC IN THIS PATIENT OR COULD REPRESE NT CYSTITIS. AGAIN, CLINICALLY CORRELATE.
== END | disposition home or self-care (01) ==
LOC: RADCTMAIN 15:16
PROVIDERS: ATTEND Internal Medicine Geriatric Medicine
DX: N32.89 Other specified disorders of bladder (principal); R10.84 Generalized abdominal pain; R60.1 Generalized edema; Z94.0 Kidney transplant status
CPT/HCPCS: 82565; 84520; 74178; 36415; Q9967

== ENCOUNTER → 2019-11-23 | Outpatient (CLI) | payer MEDICARE ==
--- NOTE | 2019-11-24 07:47 | CT ---
EXAMINATION TYPE: CT chest wo/w con DATE OF EXAM: 11/23/2019 COMPARISON: None, CT abdomen pelvis is reviewed from 11/16/2019 HISTORY: Cough and fever. CT DLP: 1188 mGycm, Automated exposure control for dose reduction was used. CONTRAST: Performed injected with 100ml mL of Isovue 300. TECHNIQUE: Axial images were obtained at 5 mm thick sections. Reconstructed images are reviewed on [employer] computer in the coronal plane. FINDINGS: Portion of the thyroid visualized is normal. Some mild infiltrate is at the left diaphragm and at the right base within the right middle lobe. Sub segmental atelectasis is favored. Very minimal left pleural effusion is present. Pleural effusion was present previously and mildly increased. The mild infiltrates have worsened over the interval. There is moderate cardiomegaly. Moderate coronary artery calcification is present. The ascending thor acic aorta at the level of the main pulmonary artery is 3.5 cm between the main pulmonary artery at t he bifurcation is 3.9 cm. Correlate for pulmonary hypertension. No enlarged mediastinal or hilar adenopathy is evident. Limited CT sections are obtained through the upper abdomen. Kidneys are atrophic. Vascular calcificat ion is noted. IMPRESSIONS: 1. Small left pleural effusion. 2. Atelectasis or possibly pneumonia at the left base. Some atelectasis is likely present at the righ t middle lobe lung base. 3. Correlate for pulmonary hypertension 4. Cardiomegaly
== END | disposition home or self-care (01) ==
LOC: RADCTMAIN 16:54
PROVIDERS: ATTEND Nurse Practitioner Gerontology
DX: J90 Pleural effusion, not elsewhere classified (principal); I51.7 Cardiomegaly
CPT/HCPCS: 71270; Q9967

== ENCOUNTER 2020-01-08 05:48 | Observation (INO) | payer MEDICARE ==
[2020-01-08] MEDS ORDERED: ASPIRIN 81 MG PO STA (06:11)
--- NOTE | 2020-01-08 06:21 | ED ---
Chest Pain HPI - General Chief Complaint: Chest Pain Stated Complaint: Chest Pain Time Seen by Provider: 01/08/20 06:01 Source: patient, RN notes reviewed Mode of arrival: ambulatory Limitations: no limitations - History of Present Illness Initial Comments: This a 69-year-old female presents emergency Department chief complaint of chest pain. Patient states that the pain started yesterday morning. He has been episodic in nature states that she gets pain rates across her chest and into her jaw, neck region. Patient does have a history of cardiac disease in which she's had [address] in 2012, to placed in 2017. Patient also states that she's had renal transplant but is currently on dialysis in which he goes Wednesday, Wednesday, Wednesday. Patient states that nothing really exacerbates her symptoms though she does notice with some exertion that symptoms do worsen. Patient does not admit to any significant leg swelling. She states she's had some intermittent shortness of breath. Patient denies fever, chills, URI symptoms. Patient has a history of hyperlipidemia, diabetes, hypertension - Related Data Home Medications Medication Instructions Recorded Confirmed Ascorbic Acid [Vitamin C] 500 mg PO DAILY 04/09/15 11/23/18 Aspirin EC [Ecotrin Low Dose] 81 mg PO DAILY 04/09/15 11/23/18 Tacrolimus [Prograf] 3 mg PO QAM 04/09/15 11/23/18 predniSONE 5 mg PO DAILY 04/09/15 11/23/18 Multivit-Min/Iron/Folic/Lutein 1 tab PO DAILY 03/04/16 11/23/18 [Centrum Silver Women Tablet] Nitroglycerin Sl Tabs [Nitrostat] 0.4 mg SUBLINGUAL Q5M PRN 03/04/16 11/23/18 Vitamin B Complex 1 cap PO DAILY 03/04/16 11/23/18 Albuterol Inhaler [Ventolin Hfa 2 puff INHALATION RT-Q4H PRN 09/16/16 11/23/18 Inhaler] Glucagon Emergency Kit 1 mg IM DIRECTED PRN 09/16/16 11/23/18 INSULIN LISPRO (For Pump) [humaLOG 0.01 units SQ-PUMP CONTINUOUS PRN 11/26/16 11/23/18 (For Pump)] Biotin 5,000 mcg PO DAILY 06/09/17 11/23/18 Ranitidine HCl [Zantac] 150 mg PO DAILY 06/09/17 11/23/18 Ubidecarenone [Coenzyme Q10] 100 mg PO DAILY 06/09/17 11/23/18 Tacrolimus [Prograf] 2 mg PO HS 03/17/18 11/23/18 Acetaminophen [Tylenol] 500 mg PO Q8H PRN 10/19/18 11/23/18 Atorvastatin [Lipitor] 40 mg PO DAILY 10/19/18 11/23/18 Bisacodyl [Dulcolax] 10 mg PO DAILY PRN 10/19/18 11/23/18 Carvedilol [Coreg] 12.5 mg PO BID 10/19/18 11/23/18 Darbepoetin Naveed [Aranesp] 25 mcg SQ Q7D 10/19/18 11/23/18 Docusate [Colace] 100 mg PO BID PRN 10/19/18 11/23/18 Ferrous Sulfate [Feosol] 325 mg PO DAILY 10/19/18 11/23/18 Lidocaine 5% Patch [Lidoderm 5% 1 patch TRANSDERM DAILY 10/19/18 11/23/18 Patch] Magnesium Oxide [Mag-Ox] 250 mg PO Q48H 10/19/18 11/23/18 Mycophenolate Mofetil [Cellcept] 750 mg PO BID 10/19/18 11/23/18 Ondansetron [Zofran ODT] 8 mg SL Q8HR PRN 10/19/18 11/23/18 Phenyleph/Pramoxin/Glycr/W.pet 1 dose RECTAL BID PRN 10/19/18 11/23/18 [Preparation H Cream] hydrALAZINE HCL [Apresoline] 100 mg PO TID 10/19/18 11/23/18 amLODIPine [Norvasc] 10 mg PO DAILY 10/20/18 11/23/18 Metolazone [Zaroxolyn] 2.5 mg PO Q48H 11/23/18 11/23/18 Sennosides [Senna] 8.6 mg PO BID PRN 11/23/18 11/23/18 Previous Rx's Medication Instructions Recorded Furosemide [Lasix] 40 mg PO BID@0900,1600 #120 tab 11/28/18 Potassium Chloride [Klor-Con 20] 20 meq PO DAILY #60 tab 11/28/18 Allergies Allergy/AdvReac Type Severity Reaction Status Date / Time Sulfa (Sulfonamide Allergy Rash/Hives Verified 01/08/20 05:49 Antibiotics) vancomycin Allergy Rash/Hives Verified 01/08/20 05:49 venom-honey bee Allergy Swelling Verified 01/08/20 05:49 [bee venom (honey bee)] metoprolol tartrate AdvReac Confusion Verified 01/08/20 05:49 [From Lopressor] Review of Systems ROS Statement: Those systems with pertinent positive or pertinent negative responses have been documented in the HPI. ROS Other: All systems not noted in ROS Statement are negative. EKG Findings - EKG Comments: EKG Findings:: EKG performed at 5:57 normal sinus rhythm left anterior fascicular block rate of 76 IA 192 QRS 116 QT/QTC 472/531 Past Medical History Past Medical History: Coronary Artery Disease (CAD), Diabetes Mellitus, Hyperlipidemia, Hypertension, Renal Disease Additional Past Medical History / Comment(s): Chronic renal disease stage III with previous renal transplant 2004 , chronic anemia, IDDM with insulin pump, gluten free diet, neuropathy. Stenosis, DDD of back, States abnormal stress test. pt had recent back surg. at [facility] Aug 09 2018 History of Any Multi-Drug Resistant Organisms: None Reported Past Surgical History: Section, Heart Catheterization, Heart Catheterization With Stent, Orthopedic Surgery Additional Past Surgical History / Comment(s): 2005 Kidney transplant at [facility], bilateral cataracts, retinal peeling in left eye, L achilles tendon repair , L upper arm dialysis fistula, has a total of 4cardiac stents, 2 c/s. Past Anesthesia/Blood Transfusion Reactions: Motion Sickness, Postoperative Nausea & Vomiting (PONV) Additional Past Anesthesia/Blood Transfusion Reaction / Comment(s): PONV after C/S Date of Last Stent Placement:: 2016. Past Psychological History: No Psychological Hx Reported Smoking Status: Never smoker Past Alcohol Use History: Rare Past Drug Use History: Marijuana - Past Family History Father Family Medical History: Myocardial Infarction ([place]) Additional Family Medical History / Comment(s): Father at age 70 from myocardial infarction Mother Family Medical History: Cancer Additional Family Medical History / Comment(s): Mother at age 86 from pneumonia. Sister(s) Family Medical History: Cancer Additional Family Medical History / Comment(s): . General Exam Limitations: no limitations General appearance: alert, in no apparent distress Head exam: Present: atraumatic, normocephalic, normal inspection Eye exam: Present: normal appearance, PERRL, EOMI. Absent: scleral icterus, conjunctival injection, periorbital swelling ENT exam: Present: normal exam, normal oropharynx, mucous membranes moist Neck exam: Present: normal inspection, full ROM. Absent: tenderness, meningismus, lymphadenopathy Respiratory exam: Present: normal lung sounds bilaterally. Absent: respiratory distress, wheezes, rales, rhonchi, stridor Cardiovascular Exam: Present: regular rate, normal rhythm, normal heart sounds. Absent: systolic murmur, diastolic murmur, rubs, gallop, clicks GI/Abdominal exam: Present: soft, normal bowel sounds. Absent: distended, tenderness, guarding, rebound, rigid Neurological exam: Present: alert, oriented X3 Skin exam: Present: warm, dry, intact, normal color. Absent: rash Course Vital Signs 01/08/20 01/08/20 01/08/20 05:49 06:30 07:00 Temperature 97.9 F Pulse Rate 75 71 69 Respiratory 22 18 17 Rate Blood Pressure 180/95 O2 Sat by Pulse 99 100 99 Oximetry 01/08/20 01/08/20 07:30 08:00 Temperature Pulse Rate 68 64 Respiratory 18 17 Rate Blood Pressure O2 Sat by Pulse 98 99 Oximetry Chest Pain MDM - [facility] Labs, EKG and chest x-ray were reviewed, patient's front of Chronic renal failure creatinine currently is 8. Patient will be admitted for cardiology evaluation, nephrology evaluation. She admitted to Dr. Tyler. Disposition Clinical Impression: Acute on chronic renal failure, Chest pain Disposition: ADMITTED IP TO THIS HOSP Condition: Fair Referrals: Refugio Cordova MD [Primary Care Provider] - 1-2 days
[2020-01-08 07:22] LABS: INR 1.1 (<1.2); Partial Thromboplastin Time 25.8 sec (22.0-30.0); Prothrombin Time 11.1 sec (9.0-12.0)
[2020-01-08 07:24] LABS: Anisocytosis Slight; Basophils % (A) 1 %; Eosinophils # (A) 0.1 k/uL (0-0.7); Eosinophils % (A) 1 %; Hypochromasia Slight; Lymphocytes # (A) 1.6 k/uL (1.0-4.8); Lymphocytes % (A) 23 %; MCH 29.5 pg (25.0-35.0); MCHC 31.4 g/dL (31.0-37.0); Macrocytosis Slight; Mean Platelet Volume 7.2; Monocytes # (A) 0.5 k/uL (0-1.0); Monocytes % (A) 7 %; Neutrophils # (A) 4.5 k/uL (1.3-7.7); Neutrophils % (A) 65 %; Platelet Count 278 k/uL (150-450); RBC 4.04 m/uL (3.80-5.40); RDW 19.5 % (11.5-15.5); WBC 6.8 k/uL (3.8-10.6)
[2020-01-08 07:28] LABS: Calcium 8.4 mg/dL (8.4-10.2); HGB 11.9 gm/dL (11.4-16.0); Magnesium 2.7 mg/dL (1.6-2.3); Total Bilirubin 0.3 mg/dL (0.2-1.3); Total Protein 7.1 g/dL (6.3-8.2)
--- NOTE | 2020-01-08 07:51 | XR ---
EXAMINATION TYPE: XR chest 2V DATE OF EXAM: 01/08/2020 COMPARISON: 11/09/2019 chest x-ray and CT dated 11/23/2019 HISTORY: Chest pain TECHNIQUE: Frontal and lateral views of the chest are obtained. FINDINGS: Trace left pleural effusion is again seen with mild interstitial pulmonary edema and enlar ged cardiomediastinal silhouette. Tete are enlarged as seen on the prior. When correlated with the p rior CT thorax of 11/23/2027 this relates to enlarged pulmonary arterial vasculature suggesting underl neno pulmonary arterial hypertension. No acute osseous pathology seen. IMPRESSION: Trace left pleural effusion and mild interstitial pulmonary edema. Consider congestive h eart failure. Enlarged tete relate to enlarged main pulmonary artery suggesting underlying pulmonary arterial hypertension when correlated with the prior CT of 11/23/2019.
[2020-01-08 08:30] LABS: Glucose,Whole Blood 184 mg/dL (75-99)
[2020-01-08] MEDS ORDERED: HEPARIN SODIUM,PORCINE 5,000 UNIT/ML 1 ML VIAL IV ONE (09:33)
[2020-01-08] MEDS ORDERED: HEPARIN SODIUM,PORCINE 5,000 UNIT/ML 1 ML VIAL IV PRN (09:33)
[2020-01-08] MEDS ORDERED: NITROGLYCERIN SL TABS 0.4 MG TAB SUBLINGUAL PRN ×2 (09:33→15:00)
[2020-01-08] MEDS: HEPARIN SOD,PORK IN 0.45% NACL 25,000 UNIT in 0.45% NACL 1 250ML.BAG IV SCH (09:59)
[2020-01-08 11:21] LABS: Glucose,Whole Blood 59 mg/dL (75-99)
[2020-01-08] MEDS ORDERED: INSPUCOR MISCELLANE PRN (11:38)
[2020-01-08] MEDS ORDERED: INSULIN ASPART (NovoLOG) 100 UNIT/ML VIAL SQ PRN (11:38)
[2020-01-08] MEDS ORDERED: INSULIN PUMP ACTIVE INSULIN 1 EACH MISC MISCELLANE PRN (11:38)
[2020-01-08] MEDS ORDERED: INSULIN PUMP TARGET GLUCOSE 1 EACH MISC MISCELLANE PRN (11:38)
[2020-01-08] MEDS ORDERED: INSULIN PUMP BASAL RATES 1 EACH MISC MISCELLANE PRN (11:38)
[2020-01-08 11:59] LABS: Glucose,Whole Blood 88 mg/dL (75-99)
--- NOTE | 2020-01-08 12:00 | ECHOF ---
Referral Reason:chest pain MEASUREMENTS -------- HEIGHT: 160.0 cm WEIGHT: 78.5 kg BP: RVIDd: 2.8 cm (< 3.3) IVSd: 1.7 cm (0.6 - 1.1) LVIDd: 3.9 cm (3.9 - 5.3) LVPWd: 1.8 cm (0.6 - 1.1) LAESV Index (A-L): 68.94 ml/m Ao Diam: 3.0 cm (2.0 - 3.7) AV Cusp: 1.8 cm (1.5 - 2.6) LA Diam: 4.0 cm (2.7 - 3.8) MV EXCURSION: 15.618 mm (> 18.000) MV EF SLOPE: 35 mm/s (70 - 150) EPSS: 0.7 cm MV E Adair: 1.55 m/s MV DecT: 318 ms MV A Adair: 0.83 m/s MV E/A Ratio: 1.86 RAP: 5.00 mmHg RVSP: 35.25 mmHg FINDINGS -------- Sinus rhythm. This was a technically good study. The left ventricular size is normal. There is moderate concentric left ventricular hypertrophy. O verall left ventricular systolic function is normal with, an EF between 55 - 60 %. Increased LAP Gr mendy 2 Diastolic Dysfunction. The right ventricle is normal in size. LA is severely dilated >40 ml/m2 The right atrial size is normal. The aortic valve is trileaflet and appears structurally normal. The mitral valve is normal. The mitral valve leaflets are mildly thickened. Mild mitral regurgita tion is present. The tricuspid valve appears structurally normal. Mild tricuspid regurgitation present. There is m ild pulmonary hypertension. The right ventricular systolic pressure, as measured by Doppler, is 35. 25mmHg. There is no pulmonic regurgitation present. The aortic root size is normal. Normal inferior vena cava with normal inspiratory collapse consistent with estimated right atrial pre ssure of 5 mmHg. There is no pericardial effusion. CONCLUSIONS -------- 1. Sinus rhythm. 2. This was a technically good study. 3. The left ventricular size is normal. 4. There is moderate concentric left ventricular hypertrophy. 5. Overall left ventricular systolic function is normal with, an EF between 55 - 60 %. 6. Increased LAP Grade 2 Diastolic Dysfunction. 7. The right ventricle is normal in size. 8. LA is severely dilated >40 ml/m2 9. The right atrial size is normal. 10. The aortic valve is trileaflet and appears structurally normal. 11. The mitral valve is normal. 12. The mitral valve leaflets are mildly thickened. 13. Mild mitral regurgitation is present. 14. The tricuspid valve appears structurally normal. 15. Mild tricuspid regurgitation present. 16. There is mild pulmonary hypertension. 17. The right ventricular systolic pressure, as measured by Doppler, is 35.25mmHg. 18. There is no pulmonic regurgitation present. 19. The aortic root size is normal. 20. Normal inferior vena cava with normal inspiratory collapse consistent with estimated right atrial pressure of 5 mmHg. 21. There is no pericardial effusion. 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
--- NOTE | 2020-01-08 12:22 | CONS ---
CONSULTATION Mrs. Red is a 69-year-old female with known history of coronary artery disease, history of end-stage renal disease, hypertension, hyperlipidemia, diabetes mellitus, who presented with symptoms of chest discomfort. She is followed at [facility] by the Dr. Garsia for her cardiology care. She has underwent stenting of the ostium and proximal RCA in 2013 with a bare metal stenting and subsequently in 2017 in mid left circumflex using a 2.25 x 8, two stents Xience. She has done reasonably well and was seen in the office on November 28. Yesterday, she had discomfort in the chest on and off across the chest, not associated with any other symptoms. Because of the persistent symptoms and recurrence early this morning, she came into the hospital. At the time of my evaluation, she is pain-free. She is usually active physically. Her exercise tolerance has been stable. She had no exertional chest discomfort or change in her breathing. She has a known history of coronary artery disease, status post renal transplant with failure of the transplant and she has been back on dialysis since December 2018. She has been seen by Dr. Menendez in the past and in June 2018, underwent a myocardial perfusion imaging that at that time revealed a reversible defect involving the anterolateral in the inferolateral wall, but she was treated medically afterward. The patient had a prior history of pseudoaneurysm in the left femoral artery following her coronary angiography and stenting in 2016 requiring repair. The patient has occasional peripheral edema. No PND. No orthopnea. No dizziness. No syncope. Her coronary risk factors include the hypertension, hyperlipidemia, and diabetes mellitus. She is a nonsmoker. MEDICATIONS: Include prednisone 5 mg daily, hydralazine 100 mg 3 times a day, amlodipine 10 mg daily, coenzyme Q10, Prograf, CellCept, Zaroxolyn 25 mg q.48 hours, maximum oxide, Lasix 40 mg twice a day, iron, Coreg 12.5 mg twice a day, Lipitor 40 mg daily, aspirin once a day, albuterol. REVIEW OF SYSTEMS: RESPIRATORY SYSTEM: She has no recent wheezing. No cough. No history of documented obstructive lung disease. GI SYSTEM: No recent GI bleeding, no peptic ulcer disease. No nausea. SYSTEM: She has end-stage renal disease but she has some urine output with no hematuria or dysuria. NERVOUS SYSTEM: No stroke or seizure. MUSCULOSKELETAL: She has history of back surgery, status post intervention and she has prior history of the renal transplant as noted. PHYSICAL EXAMINATION: She is a 69-year-old female, alert, oriented, in no apparent distress. Blood pressure 149/70 with a heart rate in the 60s. HEAD: Normocephalic eyes sclerae anicteric neck good upstroke no bruit initiate distention. LUNGS: Clear to auscultation. HEART: Regular rhythm S1, S2. No S3 with systolic murmur 2/6, early peaking heard at the base. No diastolic murmur no rub. ABDOMEN: Soft, nontender. Positive bowel sounds, no organomegaly. EXTREMITIES: Trace edema on the right side, +2 dorsalis pedis. Graft is noted in the left upper extremity. LAB DATA: Lab data revealed BUN and creatinine 77 and 8.2, potassium 4.0, hemoglobin of 11.9. Troponin less than 0.012. NT proBNP 1220. EKG revealed a sinus mechanism, rate of 76, left axis deviation, left anterior fascicular block with poor R-wave progression. Chest x-ray shows minimal effusion. IMPRESSION: 1. Chest discomfort, rule out angina pectoris in a patient with known history of coronary artery disease, status post percutaneous revascularization. Rule out progression of disease. 2. Status post stenting of the left circumflex into the right coronary artery done in 2012 and 2016. 3. History of end-stage renal disease, on hemodialysis. 4. Hypertension. 5. Hyperlipidemia. 6. Diabetes mellitus. 7. Prior history of pseudoaneurysm on the left side. RECOMMENDATION: From the cardiac standpoint, I will obtain echocardiogram with Doppler. Continue rest of medical regimen. If she has any enzymatic changes or recurrent pain, then coronary angiography will be needed. I have discussed with her those finding. I have discussed with her the option of proceeding with that if needed to be done here or to be transferred at the [facility] under the care of her primary head mva reactor operator and she would favor that. I will obtain echocardiogram with Doppler and depending on her progress, further recommendation will be made.. Thank you for this consult. Will follow with you. MMODL / IJN: [id number] /
[2020-01-08 13:54] LABS: Glucose,Whole Blood 145 mg/dL (75-99)
[2020-01-08] MEDS ORDERED: DIPHENOX-ATROP 2.5-0.025 MG 1 EACH TAB PO PRN (14:03)
[2020-01-08] MEDS ORDERED: BISACODYL 5 MG TABLET.DR PO PRN (14:04)
[2020-01-08] MEDS ORDERED: ALBUTEROL NEBULIZED 2.5 MG/3 ML INHALATION PRN ×2 (14:04→15:00)
[2020-01-08] MEDS ORDERED: ACETAMINOPHEN TAB 500 MG TAB PO PRN (14:04)
--- NOTE | 2020-01-08 14:20 | P.HPIM ---
History of Present Illness H&P Date: 01/08/20 This is a 69-year-old female patient of Dr. Cordova, Dr. Hussein with past medical history of diabetes mellitus on insulin pump, CAD status post PTCA and stenting of mid circumflex November 2016 subsequent pseudoaneurysm with surgical repair, chronic diastolic heart failure, severe pulmonary hypertension, valvular heart disease with moderate to severe tricuspid regurgitation and mitral regurgitation, GERD, hyperlipidemia, hypertension, end-stage renal disease status post renal transplant in 2004 at [facility] and follows every 6 months, anemia of chronic disease. Patient had a hospitalization in November 2018 which time she was treated for acute on chronic hypoxic respiratory failure secondary to acute on chronic diastolic heart failure and angina. Patient states that she followed her transplant doctor at [facility] in November of this year with plan for redo of the renal transplant. She was seen by her plant operations vice president, Dr. Garsia, at the end of November and was cleared for transplant surgery. At that time she underwent a stress test and echocardiogram. She denies any heart catheterization at that time. Patient complains of chest pain that was on the left upper anterior chest that was a pressure type pain that started yesterday morning. She states it happens when she is sitting or when she is walking or at any time. Her gallbladder is intact. She denies any gastric reflux. She denies any choking on food or bloating. She denies any right upper quadrant pain or tenderness. She did have some jaw pain which she related to grinding her teeth. She denies having any fever or chills. Patient denies any breast pain and she is due for mammogram. She denies any new medications. Patient states that she has been working on step climbing in increasing her endurance in preparation for transplant. She is due for recheck with her renal transplant team at the end of January. Patient presented to [facility] emergency center for evaluation. Initial blood pressure 180/95, heart rate 75, afebrile. EKG was sinus rhythm with left axis deviation left anterior fascicular block with poor R-wave progression. Echocardiogram EF 55-60% with moderate concentric left ventricular hypertrophy, mild mitral regurgitation, mild tricuspid regurgitation, mild pulmonary hypertension. Chest x-ray shows trace left pleural effusion and mild interstitial pulmonary edema. Consider congestive heart failure. Enlarged main pulmonary artery suggesting underlying pulmonary artery hypertension. CBC unremarkable, sodium 133, potassium 4.0, chloride 96, CO2 16, BUN 77 creatinine 8.24, blood sugar 201, liver function tests within normal limits, magnesium 2.7, troponin 0.012, proBNP 1620. Patient was admitted to the cardiac Unit and Cardiology Consult Requested. Review of Systems Constitutional: Denies chills, Denies fatigue, Denies fever, Denies lethargy, Denies malaise, Denies poor appetite, Denies weight loss Eyes: denies blurred vision, denies pain Ears: deny: decreased hearing Ears, nose, mouth and throat: Denies dysphagia, Denies headache, Denies nasal congestion, Denies nasal discharge, Denies sore throat, Denies vertigo Breasts: absent: as per HPI Cardiovascular: Reports chest pain, Denies decreased exercise tolerance, Denies dyspnea on exertion, Denies edema, Denies leg edema, Denies lightheadedness, Denies orthopnea, Denies palpitations, Denies shortness of breath, Denies sync ope Respiratory: Denies cough, Denies cough with sputum, Denies dyspnea, Denies excessive sputum, Denies hemoptysis, Denies home oxygen, Denies respiratory infections, Denies wheezing Gastrointestinal: Denies abdominal pain, Denies diarrhea, Denies loss of appetite, Denies nausea, Denies vomiting Genitourinary: Denies dysuria, Denies hematuria Musculoskeletal: Denies frequent falls, Denies gait dysfunction, Denies muscle weakness, Denies myalgias Integumentary: Denies pruritus, Denies rash, Denies wounds Neurological: Denies change in mentation, Denies change in speech, Denies numbness, Denies seizures, Denies weakness Psychiatric: Denies anxiety, Denies depression Past Medical History Past Medical History: Atrial Fibrillation, Coronary Artery Disease (CAD), Diabetes Mellitus, GERD/Reflux, Hearing Disorder / Deafness, Hyperlipidemia, Hypertension, Osteoarthritis (OA), Renal Disease Additional Past Medical History / Comment(s): 2004 renal transplant, CKD stage IV-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 History of Any Multi-Drug Resistant Organisms: None Reported Past Surgical History: Adenoidectomy, Section, Heart Catheterization, Heart Catheterization With Stent, Orthopedic Surgery, Tonsillectomy Additional Past Surgical History / Comment(s): 2005 Kidney transplant at [facility], bilateral cataracts, retinal peeling in left eye, L achilles tendon repair, low back surgery L2-L5, L upper arm dialysis graft x2, has a total of 4 cardiac stents, 2017 repair pseudoaneurysm in groin, 2 c/s, colonoscopy. Past Anesthesia/Blood Transfusion Reactions: Motion Sickness, Postoperative Nausea & Vomiting (PONV) Additional Past Anesthesia/Blood Transfusion Reaction / Comment(s): PONV after C/S Date of Last Stent Placement:: 2016. Smoking Status: Never smoker Additional Past Alcohol Use History / Comment(s): Patient is a lifelong nonsmoker. Uses medical marijuana occas. for pain. Drinks a glass of red wine rarely now. - Past Family History Father Family Medical History: Myocardial Infarction (RI) Additional Family Medical History / Comment(s): Father of a RI at the age of 79yrs. Mother Family Medical History: Cancer Additional Family Medical History / Comment(s): Mother had breast cancer. Mother at age 86 from pneumonia. Sister(s) Family Medical History: Cancer Additional Family Medical History / Comment(s): Patient has 2 daughters no major medical problems. Son(s) Additional Family Medical History / Comment(s): atient has 2 sons no major medical problems. Medications and Allergies Home Medications Medication Instructions Recorded Confirmed Type Ascorbic Acid [Vitamin C] 500 mg PO DAILY 04/09/15 01/08/20 History Aspirin EC [Ecotrin Low Dose] 81 mg PO DAILY 04/09/15 01/08/20 History Tacrolimus [Prograf] 3 mg PO QAM 04/09/15 11/23/18 History predniSONE 5 mg PO DAILY 04/09/15 11/23/18 History Multivit-Min/Iron/Folic/Lutein 1 tab PO DAILY 03/04/16 11/23/18 History [Centrum Silver Women Tablet] Nitroglycerin Sl Tabs [Nitrostat] 0.4 mg SUBLINGUAL Q5M PRN 03/04/16 11/23/18 Hi story Vitamin B Complex 1 cap PO DAILY 03/04/16 11/23/18 History Albuterol Inhaler [Ventolin Hfa 2 puff INHALATION RT-Q4H PRN 09/16/16 11/23/18 History Inhaler] Glucagon Emergency Kit 1 mg IM DIRECTED PRN 09/16/16 11/23/18 History INSULIN LISPRO (For Pump) [humaLOG 0.01 units SQ-PUMP CONTINUOUS PRN 11/26/16 11/23/18 History (For Pump)] Biotin 5,000 mcg PO DAILY 06/09/17 01/08/20 History Ranitidine HCl [Zantac] 150 mg PO DAILY 06/09/17 11/23/18 History Ubidecarenone [Coenzyme Q10] 100 mg PO DAILY 06/09/17 01/08/20 History Tacrolimus [Prograf] 2 mg PO HS 03/17/18 11/23/18 History Acetaminophen [Tylenol] 500 mg PO Q8H PRN 10/19/18 01/08/20 History Atorvastatin [Lipitor] 40 mg PO DAILY 10/19/18 01/08/20 History Bisacodyl [Dulcolax] 5 mg PO DAILY PRN 10/19/18 01/08/20 History Carvedilol [Coreg] 12.5 mg PO BID 10/19/18 01/08/20 History Darbepoetin Naveed [Aranesp] 25 mcg SQ Q7D 10/19/18 11/23/18 History Docusate [Colace] 100 mg PO BID PRN 10/19/18 11/23/18 History Ferrous Sulfate [Feosol] 325 mg PO DAILY 10/19/18 11/23/18 History Lidocaine 5% Patch [Lidoderm 5% 1 patch TRANSDERM DAILY 10/19/18 11/23/18 History Patch] Magnesium Oxide [Mag-Ox] 250 mg PO Q48H 10/19/18 11/23/18 History Mycophenolate Mofetil [Cellcept] 750 mg PO BID 10/19/18 11/23/18 History Ondansetron [Zofran ODT] 8 mg SL Q8HR PRN 10/19/18 11/23/18 History Phenyleph/Pramoxin/Glycr/W.pet 1 dose RECTAL BID PRN 10/19/18 11/23/18 History [Preparation H Cream] hydrALAZINE HCL [Apresoline] 100 mg PO TID 10/19/18 11/23/18 History amLODIPine [Norvasc] 10 mg PO DAILY 10/20/18 11/23/18 History Metolazone [Zaroxolyn] 2.5 mg PO Q48H 11/23/18 11/23/18 History Sennosides [Senna] 8.6 mg PO BID PRN 11/23/18 11/23/18 History Furosemide [Lasix] 40 mg PO BID@0900,1600 #120 tab 11/28/18 Rx Potassium Chloride [Klor-Con 20] 20 meq PO DAILY #60 tab 11/28/18 Rx Albuterol Nebulized [Ventolin 2.5 mg INHALATION RT-DAILY PRN 01/08/20 01/08/20 History Nebulized] Diphenoxylate HCl/Atropine 1 tab PO Q8H PRN 01/08/20 01/08/20 History [Lomotil 2.5-0.025 mg Tablet] Pro-Stat Sugar Free 1 bottle PO DAILY 01/08/20 01/08/20 History Vitamin E 400 unit PO DAILY 01/08/20 01/08/20 History Allergies Allergy/AdvReac Type Severity Reaction Status Date / Time Sulfa (Sulfonamide Allergy Rash/Hives Verified 01/08/20 12:54 Antibiotics) vancomycin Allergy Rash/Hives Verified 01/08/20 12:54 venom-honey bee Allergy Swelling Verified 01/08/20 12:54 [bee venom (honey bee)] metoprolol tartrate AdvReac Confusion Verified 01/08/20 12:54 [From Lopressor] Physical Exam Vitals: Vital Signs Temp Pulse Pulse Resp BP BP Pulse Ox 01/08/20 11:30 97.4 F L 62 20 149/72 01/08/20 10:27 178/88 01/08/20 10:00 67 18 01/08/20 09:30 65 15 01/08/20 09:00 65 17 01/08/20 08:30 67 18 01/08/20 08:00 64 17 99 01/08/20 07:30 68 18 98 01/08/20 07:00 69 17 99 01/08/20 06:30 71 18 100 01/08/20 05:49 97.9 F 75 22 180/95 99 Intake and Output 01/07/20 01/08/20 01/08/20 22:59 06:59 14:59 Other: # Voids 0 Weight 79.379 kg 79.379 kg Gen: This is a 69-year-old obese female. Patient is resting in bed and appears to be comfortable and in no acute distress. Patient is currently undergoing hemodialysis. HEENT: Head is atraumatic, normocephalic. Pupils equal, round. Sclerae is anicteric. NECK: Supple. No JVD. No lymphadenopathy. No thyromegaly. LUNGS: Diminished bilaterally. No accessory muscle usage. No intercostal retractions. No chest wall tenderness. HEART: Regular rate and rhythm. Systolic murmur. ABDOMEN: Soft. Bowel sounds are present. No masses. No tenderness. EXTREMITIES: 2+ bilateral pedal edema. No calf tenderness. Dorsalis pedis +2 bilaterally. NEUROLOGICAL: Patient is awake, alert and oriented x3. Cranial nerves 2 through 12 are grossly intact. Results CBC & Chem 7: 01/08/20 06:55 01/08/20 06:55 Labs: Abnormal Lab Results - Last 24 Hours (Table) 01/08/20 01/08/20 01/08/20 Range/Units 06:55 06:55 08:29 RDW 19.5 H (11.5-15.5) % Sodium 133 L (137-145) mmol/L Chloride 96 L (98-107) mmol/L Carbon Dioxide 16 L (22-30) mmol/L BUN 77 H (7-17) mg/dL Creatinine 8.24 H* (0.52-1.04) mg/dL Glucose 201 H (74-99) mg/dL POC Glucose (mg/dL) 184 H (75-99) mg/dL Magnesium 2.7 H (1.6-2.3) mg/dL 01/08/20 Range/Units 11:20 RDW (11.5-15.5) % Sodium (137-145) mmol/L Chloride (98-107) mmol/L Carbon Dioxide (22-30) mmol/L BUN (7-17) mg/dL Creatinine (0.52-1.04) mg/dL Glucose (74-99) mg/dL POC Glucose (mg/dL) 59 L (75-99) mg/dL Magnesium (1.6-2.3) mg/dL Thrombosis Risk Factor Assmnt - DVT/VTE Prophylaxis DVT/VTE Prophylaxis: Pharmacologic Prophylaxis ordered - Choose All That Apply Any of the Below Risk Factors Present?: Yes Other Risk Factors: Yes Each Risk Factor Represents 2 Points: Age 61-74 years Other congenital or acquired thrombophilia - If yes, enter type in comment: No Thrombosis Risk Factor Assessment Total Risk Factor Score: 2 Thrombosis Risk Factor Assessment Level: Low Risk Assessment and Plan Plan: 1. Chest pain with initially normal troponin. Repeat troponins, cardiology consult, echocardiogram 2. Chronic diastolic heart failure. Awaiting medication reconciliation. 2. History of coronary artery disease status post stent to the RCA, LAD, circumflex care of Dr. NAINA Ahmadi. Continue aspirin 81 mg daily, Lipitor 40 mg daily, Coreg. 3. Severe pulmonary hypertension. Patient may benefit from outpatient sleep study. 4. 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 Patient is working with transplant team for redo of renal transplant. Nephrology consult a ppreciated. Continue Lasix, Continue Prograf, prednisone. 5. End-stage renal disease on hemodialysis. Patient is normally scheduled Wednesday. Nephrology consult appreciated. Midodrine added. 6. History of end-stage renal disease status post renal transplant. Continue immunosuppression medications. Nephrology consult appreciated. 7. Diabetes mellitus type 2 on insulin pump. 8. Hyperlipidemia. Continue Lipitor 40 mg daily. 9. Hypertension. Continue Lasix, Zaroxolyn, amlodipine 10 mg daily, hydralazine 100 mg 3 times daily. 10. Gastroesophageal reflux disease and GI prophylaxis. Continue Pepcid. 11. Valvular heart disease with moderate severe tricuspid regurgitation, moderate mitral regurgitation. 12. Anemia of chronic kidney disease. Continue ferrous sulfate 325 mg daily, Aranesp added, anemia studies. CODE STATUS: Full code Patient will be admitted to the hospital for a minimum of 2 night stay. Discharge plan: home Impression and plan of care have been directed as dictated by the signing physician. Lainey Cameron nurse practitioner acting as scribe for signing physician.
[2020-01-08] MEDS ORDERED: COLCHICINE 0.6 MG EACH PO PRN (15:00)
[2020-01-08] MEDS ORDERED: DOCUSATE 100 MG CAP PO PRN (15:00)
[2020-01-08] MEDS ORDERED: METOLAZONE 5 MG TAB PO PRN (15:00)
[2020-01-08] MEDS ORDERED: hydrALAZINE HCL 50 MG TAB PO SCH (16:00)
[2020-01-08] MEDS: CARVEDILOL 12.5 MG TAB PO SCH ×2 (16:04→17:54)
[2020-01-08] MEDS: hydrALAZINE HCL 50 MG TAB PO SCH ×2 (16:04→21:21)
[2020-01-08] MEDS: ATORVASTATIN 40 MG TAB PO SCH (16:04)
[2020-01-08] MEDS: INSULIN PUMP MEAL BOLUS 1 UNIT MISC MISCELLANE SCH ×3 (16:05→22:24)
[2020-01-08] MEDS: FUROSEMIDE 40 MG TAB PO SCH ×2 (16:05→22:24)
[2020-01-08] MEDS: MIDODRINE 5 MG TAB PO SCH ×2 (16:05→17:35)
[2020-01-08] MEDS: NITROGLYCERIN OINT 1 INCH/GM PACKET TOPICAL SCH ×2 (16:05→21:26)
--- NOTE | 2020-01-08 16:13 | CONS ---
CONSULTATION REASON FOR CONSULT: End-stage renal disease. HISTORY OF PRESENT ILLNESS: Patient is a 69-year-old female with end-stage renal disease, currently on hemodialysis. The patient is status post living unrelated renal transplant at [facility] in 2004. She is maintained on immunosuppressive medications, but has been requiring dialysis mainly for volume overload. She was admitted to the hospital with complaints of chest pain. Patient is maintained on a Wednesday, Wednesday, Wednesday schedule for dialysis. She has been evaluated by Cardiology. There is consideration for possible cardiac catheterization. However, patient may also follow up as outpatient with [facility]. Currently she states she has the chest pains on and off. It is not exacerbated by exertion. The patient is seen on dialysis. She states she feels like having a bowel movement and she has had frequent bowel movements as outpatient for which she was recently started on Lomotil. No fever, chills, nausea, vomiting or abdominal pain. PAST MEDICAL HISTORY: Coronary artery disease, type 2 diabetes, hypertension, CKD mineral bone disorder, end- stage renal disease, diabetic neuropathy, osteoarthritis. PAST SURGICAL HISTORY: , cardiac catheterization, coronary stent placement, renal transplant, living unrelated 2005 at [facility]; cataract surgery, tendon repair, AV fistula with stent placement. SOCIAL HISTORY: Negative for smoking, drug abuse or alcohol abuse. MEDICATIONS: Medications prior to admission multiple, please see list. ALLERGIES: Include SULFA, VANCOMYCIN, BEE VENOM, LOPRESSOR. REVIEW OF SYSTEMS: As per HPI. Other systems negative. PHYSICAL EXAMINATION: On examination, patient is comfortable, awake, alert, oriented x3, not in any acute distress. Blood pressure 149/72, heart rate 62 per minute, patient is afebrile. Examination of the heart S1, S2. Examination of the lungs, bilateral breath sounds are heard. Abdomen is soft, nontender. Examination of lower extremities shows no significant edema. GAS OPERATIONS ANALYST exam grossly intact. LABS: Show sodium 133, potassium 4.0, serum creatinine 8.2, CO2 was 16, hemoglobin 11.9. ASSESSMENT: 1. End-stage renal disease. Continue with hemodialysis for now. The patient has some function from her renal allograft and she is maintained on her immunosuppressive medications. 2. Chest pain, being followed by Cardiology. 3. Chronic kidney disease mineral bone disorder. 4. History of congestive heart failure. PLAN: Hemodialysis today, followup regarding recommendations from Cardiology, continue current medications for now. MMODL / IJN: [id number] /
[2020-01-08 17:17] LABS: Glucose,Whole Blood 142 mg/dL (75-99)
[2020-01-08] MEDS: SEVELAMER 800 MG TAB PO SCH (17:56)
[2020-01-08] MEDS: predniSONE 5 MG TAB PO SCH (17:56)
[2020-01-08] MEDS ORDERED: NON FORMULARY DRUG (Ranitidine Hcl [Zantac] 150 MG) PO SCH (21:00)
[2020-01-08] MEDS: TACROLIMUS 1 MG CAP PO SCH (21:21)
[2020-01-09 05:06] VITALS: TEMP 97.6
[2020-01-09] MEDS: MIDODRINE 5 MG TAB PO SCH (06:11)
[2020-01-09] MEDS: CARVEDILOL 12.5 MG TAB PO SCH (06:12)
[2020-01-09] MEDS: SEVELAMER 800 MG TAB PO SCH (06:12)
[2020-01-09 07:43] LABS: Mean Platelet Volume 7.7; Platelet Count 316 k/uL (150-450)
[2020-01-09] MEDS ORDERED: amLODIPine 10 MG TAB PO SCH (09:00)
[2020-01-09] MEDS ORDERED: ASPIRIN 81 MG PO SCH (09:00)
[2020-01-09] MEDS ORDERED: MAGNESIUM OXIDE 400 MG TAB PO SCH (09:00)
[2020-01-09] MEDS ORDERED: POTASSIUM CHLORIDE ER 20 MEQ TAB.ER PO SCH (09:00)
[2020-01-09] MEDS ORDERED: FERROUS SULFATE 325 MG TAB PO SCH (09:00)
[2020-01-09] MEDS ORDERED: NON FORMULARY DRUG (Vitamin B Complex [Vitamin B Complex] 1 CAP) PO SCH (09:00)
[2020-01-09] MEDS ORDERED: ASCORBIC ACID 500 MG TAB PO SCH (09:00)
[2020-01-09] MEDS ORDERED: ASPIRIN 325 MG TAB PO SCH (09:00)
[2020-01-09] MEDS ORDERED: FAMOTIDINE 20 MG TAB PO SCH (09:00)
[2020-01-09] MEDS ORDERED: MULTIVITAMINS, THERA 1 EACH TAB PO SCH (09:00)
[2020-01-09] MEDS: NITROGLYCERIN OINT 1 INCH/GM PACKET TOPICAL SCH (09:33)
[2020-01-09] MEDS: INSULIN PUMP MEAL BOLUS 1 UNIT MISC MISCELLANE SCH ×2 (09:33→13:20)
[2020-01-09] MEDS: ATORVASTATIN 40 MG TAB PO SCH (09:34)
[2020-01-09] MEDS: TACROLIMUS 1 MG CAP PO SCH (09:34)
[2020-01-09] MEDS: FUROSEMIDE 40 MG TAB PO SCH (09:34)
[2020-01-09] MEDS: hydrALAZINE HCL 50 MG TAB PO SCH (09:34)
[2020-01-09] MEDS: predniSONE 5 MG TAB PO SCH (09:34)
[2020-01-09] MEDS: HEPARIN SOD,PORK IN 0.45% NACL 25,000 UNIT in 0.45% NACL 1 250ML.BAG IV SCH (09:43)
[2020-01-09 09:48] LABS: Calcium 8.5 mg/dL (8.4-10.2); Potassium 4.1 mmol/L (3.5-5.1)
--- NOTE | 2020-01-09 12:33 | P.PN ---
Subjective Progress Note Date: 01/09/20 This is a 69-year-old female with history of coronary artery disease, end-stage renal disease, hypertension, hyperlipidemia, diabetes, who presented to the hospital with symptoms of chest discomfort. She follows at the [facility] for her cardiac needs. Patient did undergo stenting of the ostial and proximal RCA in 2012 with bare-metal stenting and subsequently in 2069 mid circumflex using to the science stents. Over that time patient has been doing reasonably well, she presented to the hospital with symptoms of chest discomfort. Her troponins were negative 3. Echocardiogram with Doppler study was performed which revealed a normal left ventricular systolic function. Let pressure 130/60 with a heart rate is 60, 96% on room air. Sodium 133, potassium 4.1, BUN 45 and creatinine 5.8 today. Patient was seen and examined this morning, she feels well, denies any chest discomfort and her breathing is stable. Objective - Vital Signs Vital signs: Vital Signs Temp 97.6 F 01/09/20 08:00 Pulse 69 01/09/20 08:00 Resp 16 01/09/20 08:00 BP 130/61 01/09/20 08:00 Pulse Ox 96 01/09/20 08:00 Intake & Output 01/08/20 01/09/20 01/09/20 18:59 06:59 18:59 Intake Total 58.579 240 431.421 Output Total 2500 Balance -2441.421 240 431.421 Weight 79.379 kg 77.7 kg Intake: Intake, IV Titration 58.579 191.421 Amount Heparin Sod,Pork in 0.45% 58.579 191.421 NaCl 25,000 unit In 0.45 % NaCl 1 250ml.bag @ 12 UNITS/KG/HR 9.525 mls/hr IV .Q24H LAWANDA Rx#: [id number] Oral 240 240 Output: Hemodialysis 2500 Other: # Voids 1 2 # Bowel Movements 0 - Exam PHYSICAL EXAMINATION: GENERAL: 69-year-old female in no acute distress at the time of my exa mination HEENT: Head is atraumatic, normocephalic. Pupils equal, round. Sclera anicteric. Conjunctiva are clear. Mucous membranes of the mouth are moist. Neck is supple. There is no elevated jugular venous pressure. No carotid bruit is heard. HEART EXAMINATION: Heart S1-S2 a systolic murmur is heard CHEST EXAMINATION: Lungs are clear to auscultation and precussion. No chest wall tenderness is noted on palpation or with deep breathing. ABDOMEN: Soft, nontender. Bowel sounds are heard. No organomegaly noted. EXTREMITIES: 2+ peripheral pulses with no evidence of peripheral edema and no calf tenderness noted. NEUROLOGIC patient is awake, alert and oriented 3 . . - Labs CBC & Chem 7: 01/09/20 06:09 01/09/20 07:59 Labs: Abnormal Lab Results - Last 24 Hours (Table) 01/08/20 01/08/20 01/08/20 Range/Units 13:49 17:14 22:25 APTT 47.1 H (22.0-30.0) sec Sodium (137-145) mmol/L Carbon Dioxide (22-30) mmol/L BUN (7-17) mg/dL Creatinine (0.52-1.04) mg/dL Glucose (74-99) mg/dL POC Glucose (mg/dL) 145 H 142 H (75-99) mg/dL 01/09/20 01/09/20 Range/Units 06:09 07:59 APTT 44.3 H (22.0-30.0) sec Sodium 133 L (137-145) mmol/L Carbon Dioxide 16 L (22-30) mmol/L BUN 45 H (7-17) mg/dL Creatinine 5.80 H (0.52-1.04) mg/dL Glucose 119 H (74-99) mg/dL POC Glucose (mg/dL) (75-99) mg/dL Assessment and Plan Plan: Assessment and plan #1 chest discomfort, troponins negative 3. EKG shows normal sinus rhythm with no acute changes. Echocardiogram with Doppler study revealed a normal left ventricular systolic function. #2 coronary artery disease with prior stenting of the circumflex and RCA #3 hypertension #4 hyperlipidemia #5 diabetes #6 end-stage renal disease on hemodialysis Plan From cardiology's perspective, patient may be able to be discharged home today, we would recommend that she follow-up with her binding stitcher at [facility] post discharge. DNP note has been reviewed, I agree with a documented findings and plan of care. Patient was seen and examined.
[2020-01-09 13:14] VITALS: BP 163/55; PULSE 74; RESP 17
--- NOTE | 2020-01-09 15:35 | P.DS ---
Providers Date of admission: 01/08/20 10:01 Expected date of discharge: 01/09/20 Attending physician: Claudia Tyler Consults: 01/08/20 09:33 Consult Physician Urgent Consulting Provider: Chava Cook Consult Reason/Comments: Chest pain Do you want consulting provider notified?: Yes Consult Physician Urgent Consulting Provider: Dori Hussein Consult Reason/Comments: Dialysis Do you want consulting provider notified?: Yes Primary care physician: [facility] Hospital Course: This is a 69-year-old female patient of Dr. Cordova, Dr. Hussein with past medical history of diabetes mellitus on insulin pump, CAD status post PTCA and stenting of mid circumflex November 2016 subsequent pseudoaneurysm with surgical repair, chronic diastolic heart failure, severe pulmonary hypertension, valvular heart disease with moderate to severe tricuspid regurgitation and mitral regurgitation, GERD, hyperlipidemia, hypertension, end-stage renal disease status post renal transplant in 2004 at [facility] and follows every 6 months, anemia of chronic disease. Patient had a hospitalization in November 2018 which time she was treated for acute on chronic hypoxic respiratory failure secondary to acute on chronic diastolic heart failure and angina. Patient states that she followed her transplant doctor at [facility] in November of this year with plan for redo of the renal transplant. She was seen by her enamel finisher, Dr. Garsia, at the end of November and was cleared for transplant surgery. At that time she underwent a stress test and echocardiogram. She denies any heart catheterization at that time. Patient complains of chest pain that was on the left upper anterior chest that was a pressure type pain that started yesterday morning. She states it happens when she is sitting or when she is walking or at any time. Her gallbladder is intact. She denies any gastric reflux. She denies any choking on food or bloating. She denies any right upper quadrant pain or tenderness. She did have some jaw pain which she related to grinding her teeth. She denies having any fever or chills. Patient denies any breast pain and she is due for mammogram. She denies any new medications. Patient states that she has been working on step climbing in increasing her endurance in preparation for transplant. She is due for recheck with her renal transplant team at the end of January. Patient presented to [facility] emergency center for evaluation. Initial blood pressure 180/95, heart rate 75, afebrile. EKG was sinus rhythm with left axis deviation left anterior fascicular block with poor R-wave progression. Echocardiogram EF 55-60% with moderate concentric left ventricular hypertrophy, mild mitral regurgitation, mild tricuspid regurgitation, mild pulmonary hypertension. Chest x-ray shows trace left pleural effusion and mild interstitial pulmonary edema. Consider congestive heart failure. Enlarged main pulmonary artery suggesting underlying pulmonary artery hypertension. CBC unremarkable, sodium 133, potassium 4.0, chloride 96, CO2 16, BUN 77 creatinine 8.24, blood sugar 201, liver function tests within normal limits, magnesium 2.7, troponin 0.012, proBNP 1620. Patient was admitted to the cardiac Unit and Cardiology Consult Requested. 01/09: Patient has been seen by cardiology. Repeat troponins have been negative on 2 draws. Triglycerides 132, cholesterol 142, HDL 47. Repeat lab work this morning revealed BUN 45 creatinine 5.8, sodium 133, potassium 4.1, chloride 100, CO2 16. Patient has been seen by nephrology as well. No plan for dialysis today. Patient has been cleared for discharge by cardiology. Patient will be discharged home today in stable condition. Patient will have follow-up with her primary enamel finisher. Discharge diagnoses: 1. Chest pain with normal troponin. Acute coronary syndrome ruled out. 2. Chronic diastolic heart failure. 2. History of coronary artery disease status post stent to the RCA, LAD, circumflex under care of Dr. NAINA Ahmadi. 3. Severe pulmonary hypertension. 4. 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 5. End-stage renal disease on hemodialysis. 6. History of end-stage renal disease status post renal transplant. 7. Diabetes mellitus type 2 on insulin pump. 8. Hyperlipidemia. 9. Hypertension. 10. Gastroesophageal reflux disease. 11. Valvular heart disease with moderate severe tricuspid regurgitation, moderate mitral regurgitation. 12. Anemia of chronic kidney disease. Discharge plan: home Impression and plan of care have been directed as dictated by the signing physician. Lainey Cameron nurse practitioner acting as scribe for signing physician. Patient Condition at Discharge: Good Plan - Discharge Summary Discharge Rx Participant: No New Discharge Prescriptions: Continue Ascorbic Acid [Vitamin C] 500 mg PO DAILY predniSONE 5 mg PO DAILY Aspirin EC [Ecotrin Low Dose] 81 mg PO DAILY Multivit-Min/Iron/Folic/Lutein [Centrum Silver Women Tablet] 1 tab PO DAILY Nitroglycerin Sl Tabs [Nitrostat] 0.4 mg SUBLINGUAL Q5M PRN PRN Reason: Chest Pain Vitamin B Complex 1 cap PO DAILY Albuterol Inhaler [Ventolin Hfa Inhaler] 1 puff INHALATION RT-DAILY PRN PRN Reason: Shortness Of Breath Glucagon Emergency Kit 1 mg IM DIRECTED PRN PRN Reason: SEVERE HYPOGLYCEMIA INSULIN LISPRO (For Pump) [humaLOG (For Pump)] 0.01 units SQ-PUMP CONTINUOUS PRN PRN Reason: Blood Sugar - High Ubidecarenone [Coenzyme Q10] 100 mg PO DAILY Biotin 5,000 mcg PO DAILY Ranitidine HCl [Zantac] 150 mg PO BID Tacrolimus [Prograf] 1 mg PO BID Docusate [Colace] 100 mg PO TID PRN PRN Reason: Constipation Carvedilol [Coreg] 12.5 mg PO BID Bisacodyl [Dulcolax] 5 mg PO DAILY PRN PRN Reason: Constipation Acetaminophen [Tylenol] 500 mg PO Q8H PRN PRN Reason: Pain Ferrous Sulfate [Feosol] 325 mg PO DAILY Atorvastatin [Lipitor] 40 mg PO DAILY Potassium Chloride [Klor-Con 20] 20 meq PO DAILY #60 tab Albuterol Nebulized [Ventolin Nebulized] 2.5 mg INHALATION RT-DAILY PRN PRN Reason: Shortness Of Breath Vitamin E 400 unit PO DAILY Diphenoxylate HCl/Atropine [Lomotil 2.5-0.025 mg Tablet] 1 tab PO Q8H PRN PRN Reason: Diarrhea Pro-Stat Sugar Free 1 bottle PO DAILY rOPINIRole HCL [Requip] 0.25 mg PO HS PRN PRN Reason: SLEEP Colchicine 0.6 mg PO DAILY PRN PRN Reason: GOUT Effer-K 20meq 1 tab PO BID PRN PRN Reason: LOW POTASSIUM Metolazone [Zaroxolyn] 10 mg PO Q48H PRN PRN Reason: ON NON-DIALYSIS DAYS Magnesium Oxide [Magox 400] 400 mg PO Q48H Bilberry Fruit Extract 80 mg PO DAILY hydrALAZINE HCL [Apresoline] 50 mg PO TID Ergocalciferol (Vitamin D2) [Drisdol] 50,000 unit PO Q14D levOCARNitine [Levocarnitine] 1 tab PO QID PRN PRN Reason: CRAMPING DURING DIALYSIS Luma-Benjamin 0.8 mg PO DAILY Furosemide [Lasix] 40 mg PO TID Fish Oil/Dha/Epa [Fish Oil 1,200 mg Fish Oil] 1 cap PO DAILY Midodrine HCl 5 - 10 mg PO DIRECTED PRN PRN Reason: BP SUPPORT Digestive Enzymes 1 tab PO DAILY Sevelamer [Renvela] 800 mg PO BID-W/MEALS Discharge Medication List Ascorbic Acid [Vitamin C] 500 mg PO DAILY 04/09/15 [History] Aspirin EC [Ecotrin Low Dose] 81 mg PO DAILY 04/09/15 [History] predniSONE 5 mg PO DAILY 04/09/15 [History] Multivit-Min/Iron/Folic/Lutein [Centrum Silver Women Tablet] 1 tab PO DAILY 03/04/16 [History] Nitroglycerin Sl Tabs [Nitrostat] 0.4 mg SUBLINGUAL Q5M PRN 03/04/16 [History] Vitamin B Complex 1 cap PO DAILY 03/04/16 [History] Albuterol Inhaler [Ventolin Hfa Inhaler] 1 puff INHALATION RT-DAILY PRN 09/16/16 [History] Glucagon Emergency Kit 1 mg IM DIRECTED PRN 09/16/16 [History] INSULIN LISPRO (For Pump) [humaLOG (For Pump)] 0.01 units SQ-PUMP CONTINUOUS PRN 11/26/16 [History] Biotin 5,000 mcg PO DAILY 06/09/17 [History] Ranitidine HCl [Zantac] 150 mg PO BID 06/09/17 [History] Ubidecarenone [Coenzyme Q10] 100 mg PO DAILY 06/09/17 [History] Tacrolimus [Prograf] 1 mg PO BID 03/17/18 [History] Acetaminophen [Tylenol] 500 mg PO Q8H PRN 10/19/18 [History] Atorvastatin [Lipitor] 40 mg PO DAILY 10/19/18 [History] Bisacodyl [Dulcolax] 5 mg PO DAILY PRN 10/19/18 [History] Carvedilol [Coreg] 12.5 mg PO BID 10/19/18 [History] Docusate [Colace] 100 mg PO TID PRN 10/19/18 [History] Ferrous Sulfate [Feosol] 325 mg PO DAILY 10/19/18 [History] Potassium Chloride [Klor-Con 20] 20 meq PO DAILY #60 tab 11/28/18 [Rx] Albuterol Nebulized [Ventolin Nebulized] 2.5 mg INHALATION RT-DAILY PRN 01/08/20 [History] Bilberry Fruit Extract 80 mg PO DAILY 01/08/20 [History] Colchicine 0.6 mg PO DAILY PRN 01/08/20 [History] Digestive Enzymes 1 tab PO DAILY 01/08/20 [History] Diphenoxylate HCl/Atropine [Lomotil 2.5-0.025 mg Tablet] 1 tab PO Q8H PRN 01/08/20 [History] Effer-K 20meq 1 tab PO BID PRN 01/08/20 [History] Ergocalciferol (Vitamin D2) [Drisdol] 50,000 unit PO Q14D 01/08/20 [History] Fish Oil/Dha/Epa [Fish Oil 1,200 mg Fish Oil] 1 cap PO DAILY 01/08/20 [History] Furosemide [Lasix] 40 mg PO TID 01/08/20 [History] Magnesium Oxide [Magox 400] 400 mg PO Q48H 01/08/20 [History] Metolazone [Zaroxolyn] 10 mg PO Q48H PRN 01/08/20 [History] Midodrine HCl 5 - 10 mg PO DIRECTED PRN 01/08/20 [History] Pro-Stat Sugar Free 1 bottle PO DAILY 01/08/20 [History] Luma-Benjamin 0.8 mg PO DAILY 01/08/20 [History] Sevelamer [Renvela] 800 mg PO BID-W/MEALS 01/08/20 [History] Vitamin E 400 unit PO DAILY 01/08/20 [History] hydrALAZINE HCL [Apresoline] 50 mg PO TID 01/08/20 [History] levOCARNitine [Levocarnitine] 1 tab PO QID PRN 01/08/20 [History] rOPINIRole HCL [Requip] 0.25 mg PO HS PRN 01/08/20 [History] Follow up Appointment(s)/Referral(s): Ramo Garsia MD [REFERRING] - 1 Week (Please call to schedule appointment) Refugio Cordova MD [Primary Care Provider] - 01/16/20 11:15 am (Wednesday) Heather Menendez MD [STAFF PHYSICIAN] - 01/23/20 3:30 pm (Wednesday) Patient Instructions/Handouts: Chest Pain (DC)
--- NOTE | 2020-01-09 15:56 | PN ---
PROGRESS NOTE Patient is seen for followup for end-stage renal disease. She is scheduled for hemodialysis in a.m. The patient continues to have on and off chest pains, but it is much improved now. Her troponins have been negative. Plans are for discharge with plans to follow up as outpatient with her primary grain buyer. PHYSICAL EXAMINATION: On examination this morning, blood pressure was 130/61, heart rate 69 per minute. She is afebrile. EXAMINATION OF THE HEART: S1 and S2. EXAMINATION OF LUNGS: Bilateral breath sounds are heard. ABDOMEN: Soft, non-tender. Examination of lower extremities shows no significant edema. LABS: Labs show sodium 133, potassium 4.1. CO2 is 16, BUN 45, creatinine 5.8. ASSESSMENT: 1. End-stage renal disease, on hemodialysis. Patient will be maintained on dialysis on a Wednesday, Wednesday, Wednesday schedule. She was having UF only once a week. However, we will maintain her on regular dialysis 3 times a week. 2. Status post renal transplant, maintained on immunosuppression. Patient continues to have some urine output and some function from her transplant kidney. 3. Chest pains with negative troponins. To follow up with primary Cardiology as outpatient. 4. Chronic kidney disease mineral bone disorder. PLAN: Hemodialysis in a.m. if patient is still in the hospital. MMODL / IJN: [id number] /
== END 2020-01-09 16:05 | disposition home or self-care (01) ==
LOC: EC 05:48 → 3SCARD 10:01 → INTOOBSV 10:01 → UNDODISIN 01-09 16:05
PROVIDERS: ADMIT Family Medicine; ATTEND Family Medicine
DX: I13.2 Hypertensive heart and chronic kidney disease with heart failure and with stage 5 chronic kidney disease, or end stage renal disease (principal); E11.22 Type 2 diabetes mellitus with diabetic chronic kidney disease; E11.42 Type 2 diabetes mellitus with diabetic polyneuropathy; N18.6 End stage renal disease; I50.32 Chronic diastolic (congestive) heart failure; N17.9 Acute kidney failure, unspecified; Z99.2 Dependence on renal dialysis; T86.12 Kidney transplant failure; D63.1 Anemia in chronic kidney disease; I25.10 Atherosclerotic heart disease of native coronary artery without angina pectoris; I08.1 Rheumatic disorders of both mitral and tricuspid valves; Z79.4 Long term (current) use of insulin; Z96.41 Presence of insulin pump (external) (internal); K21.9 Gastro-esophageal reflux disease without esophagitis; I27.20 Pulmonary hypertension, unspecified; E66.9 Obesity, unspecified; Z68.30 Body mass index [BMI] 30.0-30.9, adult; H91.93 Unspecified hearing loss, bilateral; Z97.4 Presence of external hearing-aid; I44.4 Left anterior fascicular block; M48.00 Spinal stenosis, site unspecified; G89.29 Other chronic pain; M54.2 Cervicalgia; M25.552 Pain in left hip; E78.5 Hyperlipidemia, unspecified; M10.9 Gout, unspecified; M13.872 Other specified arthritis, left ankle and foot; M13.871 Other specified arthritis, right ankle and foot; Z95.5 Presence of coronary angioplasty implant and graft; Z98.1 Arthrodesis status; Z98.42 Cataract extraction status, left eye; Z98.41 Cataract extraction status, right eye; Z98.890 Other specified postprocedural states; Z82.49 Family history of ischemic heart disease and other diseases of the circulatory system; Z80.9 Family history of malignant neoplasm, unspecified; Z83.6 Family history of other diseases of the respiratory system; Z79.82 Long term (current) use of aspirin; Z79.52 Long term (current) use of systemic steroids; Z79.899 Other long term (current) drug therapy; Z88.2 Allergy status to sulfonamides; Z88.8 Allergy status to other drugs, medicaments and biological substances; Z88.1 Allergy status to other antibiotic agents; Z91.030 Bee allergy status
CPT/HCPCS: 96366 ×2; 93005 ×2; 96376; 96365; 99285; 36415; 94760; 93306; 83880; 80053; 80048; 82465; 83718; 83690; 83735; 84478; 84484; 85025; 85049; 85610; 85730 ×2; 71046; G0378 ×2; J1644 ×3; J7507 ×2; J7512 ×2; 90935

== ENCOUNTER → 2020-03-26 | Outpatient (CLI) | payer MEDICARE ==
--- NOTE | 2020-03-26 14:03 | XR ---
EXAMINATION TYPE: XR chest 2V DATE OF EXAM: 03/26/2020 COMPARISON: Prior chest x-ray 01/08/2020 HISTORY: Fever, nasal congestion TECHNIQUE: Frontal and lateral views of the chest are obtained. FINDINGS: There is blunting of the costophrenic angle, left, obscured left hemidiaphragm as on prior exam. Interstitium is increased. Central vascularity appears prominently. Heart remains enlarged. Th ere is no evident pneumothorax. There are dense coronary artery calcifications. IMPRESSION: Findings are similar to prior exam. Correlate for pulmonary venous hypertension and inte rstitial edema, pulmonary artery hypertension, there is likely left pleural effusion.
[2020-03-26 14:24] LABS: Anisocytosis Slight; Basophils % (A) 1 %; Eosinophils # (A) 0.2 k/uL (0-0.7); Eosinophils % (A) 3 %; HCT 26.6 % (34.0-46.0); HGB 8.2 gm/dL (11.4-16.0); Hypochromasia Moderate; Lymphocytes # (A) 1.2 k/uL (1.0-4.8); Lymphocytes % (A) 17 %; MCH 29.4 pg (25.0-35.0); MCHC 30.8 g/dL (31.0-37.0); MCV 95.3 fL (80.0-100.0); Macrocytosis Slight; Monocytes # (A) 0.6 k/uL (0-1.0); Monocytes % (A) 9 %; Neutrophils # (A) 4.5 k/uL (1.3-7.7); Neutrophils % (A) 66 %; Platelet Count 296 k/uL (150-450); RBC 2.79 m/uL (3.80-5.40); RDW 17.9 % (11.5-15.5); WBC 6.8 k/uL (3.8-10.6)
[2020-03-26 19:27] LABS: African American GFR (CKD) 8.9 (60.0-200.0); Albumin 3.8 g/dL (3.80-4.90); Albumin/Globulin Ratio 1.46 (1.60-3.17); Anion Gap 12.5 mmol/L (4.00-12.00); BUN/Creat Ratio 10.19 Ratio (12.00-20.00); Calcium 9.3 mg/dL (8.7-10.3); Carbon Dioxide 29.5 mmol/L (21.6-31.8); Globulin 2.6 g/dL (1.6-3.3); Non-African American GFR(CKD) 7.6 (60.0-200.0); Potassium 3.7 mmol/L (3.5-5.5); Total Bilirubin 0.3 mg/dL (0.2-1.2); Total Protein 6.4 g/dL (6.2-8.2)
== END | disposition home or self-care (01) ==
LOC: LABWHC1 12:12
PROVIDERS: ATTEND Internal Medicine Geriatric Medicine
DX: R50.9 Fever, unspecified (principal)
CPT/HCPCS: 36415; 71046; 80053; 85025; 87040

== ENCOUNTER → 2020-05-21 | Outpatient (CLI) | payer MEDICARE ==
--- NOTE | 2020-05-21 14:30 | XR ---
EXAMINATION TYPE: XR lumbar spine 2 or 3V DATE OF EXAM: 05/21/2020 Comparison: 03/02/2015 Clinical History: 70-year-old female M54.9 back pain Findings: Posterior and interbody lumbar fusion from L2 through L5 levels along with lateral osseous fusion. Ve rtebral body heights are preserved and alignment is maintained. Mild degenerative disc disease above and below the fusion. Facet arthropathy below the fusion. Dense atherosclerotic calcifications throug hout the visceral arteries and abdominal aorta. Impression: Status post L2-L5 posterior and interbody fusion along with lateral osseous fusion. No vertebral comp ression collapse or malalignment.
== END | disposition home or self-care (01) ==
LOC: RADXRMAIN 11:06
PROVIDERS: ATTEND Internal Medicine Geriatric Medicine
DX: M54.9 Dorsalgia, unspecified (principal); Z98.1 Arthrodesis status
CPT/HCPCS: 72100

== ENCOUNTER → 2020-07-11 | Outpatient (CLI) | payer MEDICARE ==
--- NOTE | 2020-07-12 11:03 | MM ---
Reason for exam: screening (asymptomatic). Last mammogram was performed 2 years and 6 months ago. History: Patient is postmenopausal. Family history of breast cancer in mother, breast cancer in sister, breast cancer in cousin, and breast cancer in grandmother. Physical Findings: A clinical breast exam by your physician is recommended on an annual basis and results should be correlated with mammographic findings. MG 3D Screening Mammo W/Cad Bilateral CC and MLO view(s) were taken. Prior study comparison: December 27, 2017, bilateral MG 3d screening mammo w/cad. November 15, 2013, mammogram, performed at [place]. There are scattered fibroglandular densities. No significant changes when compared with prior studies. ASSESSMENT: Benign, BI-RAD 2 RECOMMENDATION: Routine screening mammogram of both breasts in 1 year.
== END | disposition home or self-care (01) ==
LOC: RADMAMWWP 16:00
PROVIDERS: ATTEND Internal Medicine Geriatric Medicine
DX: Z12.31 Encounter for screening mammogram for malignant neoplasm of breast (principal)
CPT/HCPCS: 77063; 77067

== ENCOUNTER → 2020-07-11 | Outpatient (CLI) | payer MEDICARE ==
--- NOTE | 2020-07-11 12:18 | XR ---
EXAMINATION TYPE: XR cervical spine comp DATE OF EXAM: 07/11/2020 CLINICAL HISTORY: pain COMPARISON: NONE TECHNIQUE: Frontal, lateral, oblique, swimmers, and open mouth view of the cervical spine are obtaine d. FINDINGS: Severe degenerative disc space narrowing extending from C5 through C7-T1. Grade 1 anterolis thesis C4 on C5 of 2.7 mm. No evidence for fracture. Foramina are patent bilaterally. No bony lesions seen. IMPRESSION: No acute fracture is seen in the cervical spine.ICD 10 NO FRACTURE, INITIAL EVALUATION
== END | disposition home or self-care (01) ==
LOC: RADXRMAIN 11:36
PROVIDERS: ATTEND Internal Medicine Geriatric Medicine
DX: M54.2 Cervicalgia (principal)
CPT/HCPCS: 72050

== ENCOUNTER 2020-12-06 14:34 | Inpatient (IN) | payer MEDICARE ==
[2020-12-06 15:33] LABS: Anisocytosis Slight; Basophils # (A) 0.1 k/uL (0-0.2); Basophils % (A) 1 %; Eosinophils # (A) 0.1 k/uL (0-0.7); Eosinophils % (A) 1 %; HCT 28.5 % (34.0-46.0); HGB 10.3 gm/dL (11.4-16.0); Hypochromasia Slight; Lymphocytes # (A) 0.7 k/uL (1.0-4.8); Lymphocytes % (A) 8 %; MCH 36.6 pg (25.0-35.0); MCHC 36.2 g/dL (31.0-37.0); Macrocytosis Moderate; Mean Platelet Volume 7.3; Monocytes # (A) 0.4 k/uL (0-1.0); Monocytes % (A) 5 %; Neutrophils # (A) 7.6 k/uL (1.3-7.7); Neutrophils % (A) 84 %; Platelet Count 235 k/uL (150-450); RBC 2.82 m/uL (3.80-5.40); WBC 9.2 k/uL (3.8-10.6)
[2020-12-06 15:55] LABS: Albumin 3.6 g/dL (3.5-5.0); Calcium 9.1 mg/dL (8.4-10.2); Potassium 5.5 mmol/L (3.5-5.1); Total Bilirubin 0.5 mg/dL (0.2-1.3); Total Protein 6.3 g/dL (6.3-8.2)
--- NOTE | 2020-12-06 16:16 | XR ---
Right foot HISTORY: Pain, gangrene, toe wound 2 views the right foot Bone mineralization is reduced. There is some fragmentation of the distal aspect of the proximal phal anx of the first digit extending into the joint space. Dense vascular calcifications are present. No evident periostitis. Plantar calcaneal spur is present. There is soft tissue swelling. Soft tissue ca lcifications are present. IMPRESSION: Osteopenia, findings consistent with of underlying diabetes, possible osteomyelitis.
[2020-12-06 16:26] LABS: Erythrocyte Sedimentation Rate 48 mm/hr (0-20)
--- NOTE | 2020-12-06 16:55 | ED ---
Extremity Problem HPI <Poli Schwartz - Last Filed: 12/06/20 17:21> - General Source: patient Mode of arrival: wheelchair Limitations: no limitations <Raeann Zhang - Last Filed: 12/06/20 18:21> - General Chief complaint: Extremity Problem,Nontraumatic Stated complaint: R Toes turning black Time Seen by Provider: 12/06/20 14:50 - History of Present Illness Initial comments: Patient is a 70-year-old female with history of A. fib, diabetes, renal disease status post transplant, currently on dialysis at home, presenting to the emergency Department with complaints of right foot pain as well as two of her toes turning black. Patient states she noticed about 3 weeks ago blisters on her third and fourth digit on her right foot. Patient states she did go see her PCP, they were monitoring the symptoms but then 1 week ago that toes started turning black. Patient states she saw her PCP yesterday who started her on Keflex however stated that if it gets worse to old to the ER. They were to see Dr. Rosario next week. Patient states she does have a history of neuropathy so her feeling is decreased in both of her feet. Patient denies any fever or chills, no nausea or vomiting. She states she last had dialysis yesterday. She has no further complaints at this time. Upon arrival to the ER, patient is afebrile, blood pressure slightly hypotensive at 107/47, rest of vitals normal. (Raeann Zhang) - Related Data Home Medications Medication Instructions Recorded Confirmed Aspirin EC [Ecotrin Low Dose] 81 mg PO DAILY 04/09/15 12/06/20 predniSONE 5 mg PO DAILY 04/09/15 12/06/20 INSULIN LISPRO (For Pump) [humaLOG 0.01 units SQ-PUMP CONTINUOUS 11/26/16 12/06/20 (For Pump)] Biotin 5,000 mcg PO DAILY 06/09/17 12/06/20 Ubidecarenone [Coenzyme Q10] 100 mg PO DAILY 06/09/17 12/06/20 Atorvastatin [Lipitor] 40 mg PO DAILY 10/19/18 12/06/20 Carvedilol [Coreg] 25 mg PO BID 10/19/18 12/06/20 Docusate [Colace] 100 mg PO TID PRN 10/19/18 12/06/20 bisacodyL [Dulcolax] 10 mg PO DAILY PRN 10/19/18 12/06/20 Bilberry Fruit Extract 80 mg PO DAILY 01/08/20 12/06/20 Colchicine 0.6 mg PO DAILY PRN 01/08/20 12/06/20 Midodrine HCl 5 - 10 mg PO BID PRN 01/08/20 12/06/20 Pro-Stat Sugar Free 29 ml PO DAILY PRN 01/08/20 12/06/20 Luma-Benjamin 0.8 mg PO DAILY 01/08/20 12/06/20 levOCARNitine [Levocarnitine] 330 mg PO BID 01/08/20 12/06/20 Calcitriol [Rocaltrol] 0.25 mcg PO RUFF 12/06/20 12/06/20 Calcium Acetate [Phoslo] 667 mg PO TID 12/06/20 12/06/20 Cephalexin [Keflex] 500 mg PO DAILY 12/06/20 12/06/20 Enzymatic Digestant 1 tab PO DAILY PRN 12/06/20 12/06/20 HYDROcodone/APAP 5-325MG [Friona 1 tab PO Q8H PRN 12/06/20 12/06/20 5-325] Loperamide [Imodium] 2 mg PO QID PRN 12/06/20 12/06/20 Losartan [Cozaar] 25 mg PO DAILY 12/06/20 12/06/20 Magnesium 200 mg PO DAILY 12/06/20 12/06/20 Nystatin 100,000 Unit/ml Susp 5 ml PO QID 12/06/20 12/06/20 [Mycostatin Oral Susp] Potassium Chloride [Klor-Con 20] 20 meq PO SUTH 12/06/20 12/06/20 diphenhydrAMINE [Benadryl] 25 mg PO Q12H PRN 12/06/20 12/06/20 traMADol HCL 50 mg PO Q6H PRN 12/06/20 12/06/20 Allergies Allergy/AdvReac Type Severity Reaction Status Date / Time Sulfa (Sulfonamide Allergy Rash/Hives Verified 12/06/20 17:06 Antibiotics) vancomycin Allergy Rash/Hives Verified 12/06/20 17:06 venom-honey bee Allergy Swelling Verified 12/06/20 17:06 [bee venom (honey bee)] metoprolol tartrate AdvReac Confusion Verified 12/06/20 17:06 [From Lopressor] Review of Systems ROS Other: All systems not noted in ROS Statement are negative. <Poli Schwartz - Last Filed: 12/06/20 17:21> ROS Other: All systems not noted in ROS Statement are negative. <Raeann Zhang - Last Filed: 12/06/20 18:21> ROS Statement: Those systems with pertinent positive or pertinent negative responses have been documented in the HPI. Past Medical History Past Medical History: Atrial Fibrillation, Coronary Artery Disease (CAD), D iabetes Mellitus, GERD/Reflux, Hearing Disorder / Deafness, Hyperlipidemia, Hypertension, Osteoarthritis (OA), Renal Disease Additional Past Medical History / Comment(s): 2004 renal transplant, CKD stage IV-pt returned to [facility]F with last diaylsis 01/05/20, chronic anemia, new lesion anterior R lower leg-appeared 2-3 days ago, IDDM type II with insulin pump, neuropathy bilateral feet, chronic pedal edema, arthritis bilateral feet great toes, gout bilateral feet, chronic muscle pain in neck and around L hip, [place] bilaterally-aides, pt follows a mostly gluten free diet. History of Any Multi-Drug Resistant Organisms: None Reported Past Surgical History: Adenoidectomy, Section, Heart Catheterization, Heart Catheterization With Stent, Orthopedic Surgery, Tonsillectomy Additional Past Surgical History / Comment(s): 2005 Kidney transplant at [facility], bilateral cataracts, retinal peeling in left eye, L achilles tendon repair, low back surgery L2-L5, L upper arm dialysis graft x2, has a total of 4 cardiac stents, 2016 repair pseudoaneurysm in groin, 2 c/s, colonoscopy. Past Anesthesia/Blood Transfusion Reactions: Motion Sickness, Postoperative Nausea & Vomiting (PONV) Additional Past Anesthesia/Blood Transfusion Reaction / Comment(s): PONV after C/S Date of Last Stent Placement:: 2016. Past Psychological History: No Psychological Hx Reported Smoking Status: Never smoker Past Alcohol Use History: Rare Past Drug Use History: Marijuana - Past Family History Son(s) Additional Family Medical History / Comment(s): lea has 2 sons no major medical problems. Father Family Medical History: Myocardial Infarction ([place]) Additional Family Medical History / Comment(s): Father of a [place] at the age of 79yrs. Mother Family Medical History: Cancer Additional Family Medical History / Comment(s): Mother had breast cancer. Mother at age 86 from pneumonia. Sister(s) Family Medical History: Cancer Additional Family Medical History / Comment(s): Patient has 2 daughters no major medical problems. <Raeann Zhang - Last Filed: 12/06/20 18:21> General Exam Limitations: no limitations <Raeann Zhang - Last Filed: 12/06/20 18:21> - General Exam Comments Initial Comments: GENERAL: Patient is well-developed and well-nourished. Patient is nontoxic and in no acute distress. HEAD: Atraumatic, normocephalic. EYES: Pupils equal round and reactive to light, extraocular movements intact, sclera anicteric, conjunctiva are normal. Eyelids were unremarkable. ENT: TMs normal, nares patent, oropharynx clear without exudates. dry mucous membranes. NECK: Normal range of motion, supple without lymphadenopathy or JVD. LUNGS: Unlabored respirations. Breath sounds clear to auscultation bilaterally and equal. No wheezes rales or rhonchi. HEART: Regular rate and rhythm without murmurs, rubs or gallops. ABDOMEN: Soft, nontender, normoactive bowel sounds. No guarding, no rebound. No masses appreciated. : Deferred MUSCULOSKELETAL: patient has to necrotic toes, third and fourth digit on the right foot, she does have decreased sensation but also has decreased sensation on the left foot as well. I do feel if faint dorsal pedis pulse on the right foot as well as the left. She does have a few small open wounds and either toe as well. She has no pain of the rest of the foot. No pitting or edema. No clubbing or cyanosis. NEUROLOGICAL: Patient is alert and oriented x 3. Motor and sensory are also intact. Cranial nerves II through XII grossly intact. Symmetrical smile. Normal speech, normal gait. PSYCH: Normal mood, normal affect. SKIN: Warm, Dry, normal turgor, no rashes. see above. (Raeann Zhang) Course <Poli Schwartz - Last Filed: 12/06/20 17:21> Vital Signs 12/06/20 14:36 Temperature 98.0 F Pulse Rate 60 Respiratory 18 Rate Blood Pressure 107/47 O2 Sat by Pulse 100 Oximetry - Reevaluation(s) Reevaluation #1: 12/06/20 17:21 PA supervision: I proceeded [id number] evaluation the patient. She is present with complaints of 2 toes on her right foot of being black. She does have evidence of osteomyelitis on x-ray. She does have blackened toes on the right foot #2 and 3. Is a peripheral neuropathy so minimal discomfort to palpation of the area. I did discuss case with her and with Dr. Carter patient be admitted with consultation by nephrology vascular surgery and infectious disease. (Poli Schwartz) Medical Decision Making - Lab Data Result diagrams: 12/06/20 15:25 12/06/20 15:25 <Poli Schwartz - Last Filed: 12/06/20 17:21> - Lab Data Result diagrams: 12/06/20 15:25 12/06/20 15:25 <Raeann Zhang - Last Filed: 12/06/20 18:21> - Medical Decision Making patient is a 70-year-old female with multiple comorbidities including renal disease, diabetes, neuropathy of both feet, presenting for necrotic third and fourth digit on the right foot. She is currently on Keflex. She did arrive slightly hypotensive at 107/46. Patient last did dialysis yesterday. I was able to feel a faint pulse on the dorsal pedis of both feet. x-rays of the right foot show possible osteomyelitis of the toes. Labs show a normal white count, ESR is 48, CRP is 10. Sodium is low at 131, potassium is 5.5, creatinine is 4.86 with BUN is 74. Patient's lactic acid is 3.0. Patient initially refused any kind of an IV, we were able to draw blood work at first. After discussing the lab findings with the patient, she was agreeable to an IV. Patient will be admitted with consult to nephrology, infectious disease as well as vascular. Patient does have an ALLERGY to Vanco so we started with 2 g of Rocephin in the ER. Patient will possibly need dialysis as well. Patient is in agreement with this plan of care. Patient was discussed in detail with Dr. Schwartz who did go see the patient and agrees with this plan. Patient was accepted by Dr. Cordova. (Raeann Zhang) - Lab Data Lab Results 12/06/20 12/06/20 12/06/20 Range/Units 15:25 15:25 15:25 WBC 9.2 (3.8-10.6) k/uL RBC 2.82 L (3.80-5.40) m/uL Hgb 10.3 L (11.4-16.0) gm/dL Hct 28.5 L (34.0-46.0) % MCV 101.0 H (80.0-100.0) fL MCH 36.6 H (25.0-35.0) pg MCHC 36.2 (31.0-37.0) g/dL RDW 18.0 H (11.5-15.5) % Plt Count 235 (150-450) k/uL MPV 7.3 Neutrophils % 84 % Lymphocytes % 8 % Monocytes % 5 % Eosinophils % 1 % Basophils % 1 % Neutrophils # 7.6 (1.3-7.7) k/uL Lymphocytes # 0.7 L (1.0-4.8) k/uL Monocytes # 0.4 (0-1.0) k/uL Eosinophils # 0.1 (0-0.7) k/uL Basophils # 0.1 (0-0.2) k/uL Hypochromasia Slight Anisocytosis Slight Macrocytosis Moderate ESR 48 H (0-20) mm/hr Sodium 131 L (137-145) mmol/L Potassium 5.5 H (3.5-5.1) mmol/L Chloride 91 L (98-107) mmol/L Carbon Dioxide 26 (22-30) mmol/L Anion Gap 14 mmol/L BUN 74 H (7-17) mg/dL Creatinine 4.86 H (0.52-1.04) mg/dL Est GFR (CKD-EPI)AfAm 10 (>60 ml/min/1.73 sqM) Est GFR (CKD-EPI)NonAf 8 (>60 ml/min/1.73 sqM) Glucose 287 H (74-99) mg/dL Plasma Lactic Acid Perez 3.0 H* (0.7-2.0) mmol/L Calcium 9.1 (8.4-10.2) mg/dL Total Bilirubin 0.5 (0.2-1.3) mg/dL AST 27 (14-36) U/L ALT 24 (4-34) U/L Alkaline Phosphatase 91 (38-126) U/L C-Reactive Protein 10.0 H (<10.0) mg/L Total Protein 6.3 (6.3-8.2) g/dL Albumin 3.6 (3.5-5.0) g/dL Disposition <Poli Schwartz - Last Filed: 12/06/20 17:21> Decision Date: 12/06/20 Decision Time: 17:52 <Raeann Zhang - Last Filed: 12/06/20 18:21> Clinical Impression: Acute kidney injury superimposed on chronic kidney disease, Lactic acidosis, Osteomyelitis of third toe of right foot, Osteomyelitis of fourth toe of right foot, Right foot pain Disposition: ADMITTED IP TO THIS [facility] Condition: Stable Referrals: Refugio Cordova MD [Primary Care Provider] - 1-2 days
[2020-12-06] MEDS ORDERED: NALOXONE 0.4 MG/ML 1 ML VIAL IV PRN (17:42)
[2020-12-06] MEDS ORDERED: ACETAMINOPHEN TAB 325 MG TAB PO PRN (17:42)
[2020-12-06] MEDS ORDERED: SODIUM CHLORIDE 0.9% 1,000 ML IV STA (17:45)
[2020-12-06] MEDS: SODIUM CHLORIDE 0.9% 1,000 ML IV SCH (20:15)
[2020-12-06] MEDS ORDERED: HYDROmorphone 0.5 MG/0.5 ML SYRINGE IVP STA (20:22)
[2020-12-06] MEDS ORDERED: bisacodyL 5 MG TABLET.DR PO PRN (20:33)
[2020-12-06] MEDS: CALCIUM ACETATE 667 MG TAB PO SCH (21:45)
[2020-12-06 21:55] LABS: Glucose,Whole Blood 54 mg/dL (75-99)
[2020-12-06 23:21] LABS: Glucose,Whole Blood 85 mg/dL (75-99)
[2020-12-06] MEDS ORDERED: traMADol 50 MG TAB PO PRN (23:31)
[2020-12-07] MEDS: HYDROmorphone 0.5 MG/0.5 ML SYRINGE IVP PRN ×2 (01:08→08:59)
[2020-12-07 01:14] LABS: Glucose,Whole Blood 151 mg/dL (75-99)
[2020-12-07 07:26] LABS: Glucose,Whole Blood 268 mg/dL (75-99)
[2020-12-07] MEDS: SODIUM CHLORIDE 0.9% 1,000 ML IV SCH ×2 (08:47→21:11)
[2020-12-07] MEDS: ATORVASTATIN 40 MG TAB PO SCH (08:48)
[2020-12-07] MEDS: CALCIUM ACETATE 667 MG TAB PO SCH ×3 (08:48→22:46)
[2020-12-07] MEDS ORDERED: INSULIN ASPART (NovoLOG) 100 UNIT/ML VIAL SQ PRN (09:58)
[2020-12-07] MEDS ORDERED: INSPUCOR MISCELLANE PRN (09:58)
[2020-12-07] MEDS ORDERED: INSULIN PUMP BASAL RATES 1 EACH MISC MISCELLANE PRN (09:58)
[2020-12-07] MEDS ORDERED: traMADol 50 MG TAB PO PRN (10:02)
[2020-12-07] MEDS ORDERED: DOCUSATE 100 MG CAP PO PRN (10:02)
[2020-12-07] MEDS ORDERED: LOPERAMIDE 2 MG CAP PO PRN (10:02)
[2020-12-07] MEDS ORDERED: MIDODRINE 5 MG TAB PO PRN ×2 (10:02→21:57)
--- NOTE | 2020-12-07 11:35 | P.HPIM ---
History of Present Illness H&P Date: 12/07/20 Chief Complaint: Gangrene of third and fourth digit of the right foot History of present illness This is a 70-year-old female known to Dr. Cordova with a past medical history of atrial fibrillation, type 1 diabetes with insulin pump, renal disease post transplant currently on dialysis at home 5 times a week. Patient presented to the emergency room with complaints of right foot pain and her toes turning black. Patient states that she noticed it about 3 weeks ago when there was blistering on the third and fourth digit of her right foot. She was seen at her PCPs office and was given Keflex and back saturation to the site. She was instructed that if the ulcerations were said to come to the emergency room. She was set up with Dr. Rosario to be seen for evaluation of her arterial status, however the appointment was not until this Wednesday. Patient's last dialysis was yesterday. Patient denied any fevers or chills. X-ray showed osteo myelitis. At this time patient is found sitting up in a chair in moderate distress. Patient is complaining of severe pain to the neck and shoulders. She has been seeing Dr. Ana Luisa mei for spinal compression. She underwent an MRI and was scheduled to have a CT without contrast for evaluation. There is discussion for possible surgery to the neck for the discomfort. Patient was set up for an outp atient CT without contrast to the cervical spine if surgery today and is to occur this should be done prior to rule out any fractures or dislocations. Patient is also complaining of hoarseness to her voice. She denies any sore throat pain with swallowing. Patient did notice that she had increased edema to her bilateral lower legs. Patient states Onofre 3 weeks ago she noticed blistering to her skin and her nails fell off the third and fourth digit of her right foot. At that time she did have some serosanguineous drainage however that has cleared up. Within the last few days she noticed her toes continuing to dark and worsening yesterday. Review Of Systems: Constitutional: No fever, no chills, no night sweats. No weight change. No weakness, fatigue or lethargy. No daytime sleepiness. EENT: No headache. No blurred vision or double vision, no loss of vision. No loss of Hearing, no ringing in the ears, no dizziness. No nasal drainage or congestion. No epistaxis. No sore throat. Lungs: No shortness of breath, cough, no sputum production. No wheezing. Cardiovascular: No chest pain, no lower extremity edema. No palpitations. No paroxysmal nocturnal dyspnea. No orthopnea. No lightheadedness or dizziness. No syncopal episodes. Abdominal: no abdominal discomfort. No nausea, vomiting. no diarrhea. No constipation. No bloody or tarry stools. no loss of appetite. Genitourinary: No dysuria, increased frequency, urgency. No urinary retention. Musculoskeletal: Reports back, neck.And shoulder discomfort No myalgias. No muscle weakness, no gait dysfunction, no frequent falls. No back pain. No neck pain. Integumentary: reports wounds, black toes to the third and fourth digit of right foot no lesions. No rash or pruritus. No unusual bruising. No change in hair or nails. Neurologic: No aphasia. No facial droop. No change in mentation. No head injury. No headache. No paralysis. No paresthesia. Psychiatric: No depression. No anxiety. No mood swings. Endocrine: No abnormal blood sugars. No weight change. No excessive sweating or thirst. Social history: Lifelong nonsmoker, use medical marijuana occasionally for pain, drinks a glass of red wine rarely, she lives with her at home. Family history: Other at age 86 from breast cancer, father at age 79 from myocardial infraction, sister had cancer, patient has 2 daughters no major medical problems, 2 sons with no major medical problems Physical examination General Appearance: Alert, cooperative, no distress, appears stated age. Neck HEENT: Supple, no lymphadenopathy, no thyroid enlargement, no carotid bruits. Lungs: Clear to auscultation without crackles or wheezes no rhonchi, no deformity. Chest Wall: Chest wall normal expansion with deep inspiration no tenderness and no deformity was found on exam, no costochondral pain or discomfort. Heart: Regular rate and rhythm, S1, S2 normal, no murmur, rub or gallop. Back: Symmetric, no curvature, ROM normal, no CVA tenderness. Abdomen: Soft, non-tender, no rebound or rigidity, no hepatosplenomegaly. Extremities: Black discolored toes to the third and fourth digit of the right foot, no drainage, areas extending from the tip to the midportion of the digits, +1+ bilateral pedal edema Extremities normal, atraumatic, no cyanosis . Pulses: 2+ and symmetric. Skin: Skin color, texture, tugor normal, no rashes or lesions. Neurologic: Alert oriented x3 cranial nerves II through XII intact, no motor deficit, no abnormal balance or gait Assessment and plan 1. Gangrene of the third and fourth digit of right foot. Consult vascular surg elias, 2. osteomyelitis noted to the right foot, consult ID, 3. Chronic diastolic heart failure, midodrine 5 mg bid PRN 4. History of coronary artery disease status post stent with RCA and LAD cir cumflex, Coreg 25 mg by mouth twice a day with meals 4. Severe pulmonary hypertension, stable 5. End-stage renal dialysis on hemodialysis 5 times a week, consult nephrology PhosLo 667 milligrams by mouth 3 times a day, calcitriol 0.25 mch daily, levocarnitine 330 mg po bid, mog-ox 200 mg po daily 6. Cervical spinal stenosis. Recent MRI and fluid water open MRI, scheduled for an outpatient CT without contrast of cervical spine. Concerns for possible dislocation or fracture to the cervical spine. Prior to any surgical interventions, patient will need a CT without contrast to rule out any fractures or dislocations of the cervical spine. norco 5/3.25 mg q8 hours 7. Diabetes mellitus on insulin pump. She may manage her own pump 8. Hyperlipidemia continue with atorvastatin 40 mg daily 9. Hypertension continue his Lasix,zaroxolyn, amlodipine 10 mg daily, hydralazine 100 mg 3 times a day daily 10. GERD and GI prophylaxis continue Pepcid 11. Valvular heart disease with moderate severe tricuspid regurgitation, moderate mitral regurgitation 12. Anemia of chronic kidney disease. Continue Fioricet sulfate 325 mg, 13; dermatitis: Hydrocortisone cream applied to the back twice a day. 14: DVT prophylaxis: heparin sq CODE STATUS: Full code Patient will be admitted to the hospital for minimum of 2 nights day Discharge plan: More than likely home Impression and plan of care have been directed as dictated by the signing physician. Barbie Blue nurse practitioner acting as scribe for signing physician. 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 History of Any Multi-Drug Resistant Organisms: None Reported Past Surgical History: Adenoidectomy, Section, Heart Catheterization, Heart Catheterization With Stent, Orthopedic Surgery, Tonsillectomy Additional Past Surgical History / Comment(s): 2004 Kidney transplant at [facility], bilateral cataracts, retinal peeling in left eye, L achilles tendon repair, low back surgery L2-L5, L upper arm dialysis graft x2, has a total of 4 cardiac stents, 2017 repair pseudoaneurysm in groin, 2 c/s, colonoscopy. Past Anesthesia/Blood Transfusion Reactions: Motion Sickness, Postoperative Nausea & Vomiting (PONV) Additional Past Anesthesia/Blood Transfusion Reaction / Comment(s): PONV after C/S Date of Last Stent Placement:: 2016. Past Psychological History: No Psychological Hx Reported Additional Psychological History / Comment(s): Pt resides with her spouse. She has a cane and walker. She drives. Smoking Status: Never smoker Past Alcohol Use History: Rare Additional Past Alcohol Use History / Comment(s): Patient is a lifelong nonsmoker. Uses medical marijuana occas. for pain. Drinks a glass of red wine rarely now. Past Drug Use History: Marijuana Additional Drug Use History / Comment(s): Occasionally uses THC gummies for pain - Past Family History Son(s) Additional Family Medical History / Comment(s): lea has 2 sons no major medical problems. Father Family Medical History: Myocardial Infarction (CT) Additional Family Medical History / Comment(s): Father of a CT at the age of 79yrs. Mother Family Medical History: Cancer Additional Family Medical History / Comment(s): Mother had breast cancer. Mother at age 86 from pneumonia. Sister(s) Family Medical History: Cancer Additional Family Medical History / Comment(s): Patient has 2 daughters no major medical problems. Medications and Allergies Home Medications Medication Instructions Recorded Confirmed Type Aspirin EC [Ecotrin Low Dose] 81 mg PO DAILY 04/09/15 12/06/20 History predniSONE 5 mg PO DAILY 04/09/15 12/06/20 History INSULIN LISPRO (For Pump) [humaLOG 0.01 units SQ-PUMP CONTINUOUS 11/26/16 12/06/20 History (For Pump)] Biotin 5,000 mcg PO DAILY 06/09/17 12/06/20 History Ubidecarenone [Coenzyme Q10] 100 mg PO DAILY 06/09/17 12/06/20 History Atorvastatin [Lipitor] 40 mg PO DAILY 10/19/18 12/06/20 History Carvedilol [Coreg] 25 mg PO BID 10/19/18 12/06/20 History Docusate [Colace] 100 mg PO TID PRN 10/19/18 12/06/20 History bisacodyL [Dulcolax] 10 mg PO DAILY PRN 10/19/18 12/06/20 History Bilberry Fruit Extract 80 mg PO DAILY 01/08/20 12/06/20 History Colchicine 0.6 mg PO DAILY PRN 01/08/20 12/06/20 History Midodrine HCl 5 - 10 mg PO BID PRN 01/08/20 12/06/20 History Pro-Stat Sugar Free 29 ml PO DAILY PRN 01/08/20 12/06/20 History Luma-Benjamin 0.8 mg PO DAILY 01/08/20 12/06/20 History levOCARNitine [Levocarnitine] 330 mg PO BID 01/08/20 12/06/20 History Calcitriol [Rocaltrol] 0.25 mcg PO RUFF 12/06/20 12/06/20 History Calcium Acetate [Phoslo] 667 mg PO TID 12/06/20 12/06/20 History Cephalexin [Keflex] 500 mg PO DAILY 12/06/20 12/06/20 History Enzymatic Digestant 1 tab PO DAILY PRN 12/06/20 12/06/20 History HYDROcodone/APAP 5-325MG [Tubac 1 tab PO Q8H PRN 12/06/20 12/06/20 History 5-325] Loperamide [Imodium] 2 mg PO QID PRN 12/06/20 12/06/20 History Losartan [Cozaar] 25 mg PO DAILY 12/06/20 12/06/20 History Magnesium 200 mg PO DAILY 12/06/20 12/06/20 History Nystatin 100,000 Unit/ml Susp 5 ml PO QID 12/06/20 12/06/20 History [Mycostatin Oral Susp] Potassium Chloride [Klor-Con 20] 20 meq PO SUTH 12/06/20 12/06/20 History diphenhydrAMINE [Benadryl] 25 mg PO Q12H PRN 12/06/20 12/06/20 History traMADol HCL 50 mg PO Q6H PRN 12/06/20 12/06/20 History Allergies Allergy/AdvReac Type Severity Reaction Status Date / Time Sulfa (Sulfonamide Allergy Rash/Hives Verified 12/06/20 17:06 Antibiotics) vancomycin Allergy Rash/Hives Verified 12/06/20 17:06 venom-honey bee Allergy Swelling Verified 12/06/20 17:06 [bee venom (honey bee)] metoprolol tartrate AdvReac Confusion Verified 12/06/20 17:06 [From Lopressor] Physical Exam Vitals: Vital Signs Temp Pulse Pulse Resp BP BP BP 12/07/20 05:00 97.8 F 80 18 95/59 12/06/20 21:45 76 18 12/06/20 21:26 98.0 F 76 18 103/61 12/06/20 20:35 98.1 F 71 18 103/55 12/06/20 18:00 70 18 100/55 12/06/20 14:36 98.0 F 60 18 107/47 Pulse Ox 12/07/20 05:00 99 12/06/20 21:45 12/06/20 21:26 97 12/06/20 20:35 98 12/06/20 18:00 98 12/06/20 14:36 100 Intake and Output 12/06/20 12/07/20 12/07/20 22:59 06:59 14:59 Intake Total 1755 Balance 1755 Intake: Intake, IV Titration 675 Amount Sodium Chloride 0.9% 1, 675 000 ml @ 75 mls/hr IV . [id number] LAWANDA Rx#:[id number] Oral 1080 Other: # Voids 1 Weight 77.111 kg Results CBC & Chem 7: 12/06/20 15:25 12/06/20 15:25 Labs: Abnormal Lab Results - Last 24 Hours (Table) 12/06/20 12/06/20 12/06/20 Range/Units 15:25 15:25 15:25 RBC 2.82 L (3.80-5.40) m/uL Hgb 10.3 L (11.4-16.0) gm/dL Hct 28.5 L (34.0-46.0) % MCV 101.0 H (80.0-100.0) fL MCH 36.6 H (25.0-35.0) pg RDW 18.0 H (11.5-15.5) % Lymphocytes # 0.7 L (1.0-4.8) k/uL ESR 48 H (0-20) mm/hr Sodium 131 L (137-145) mmol/L Potassium 5.5 H (3.5-5.1) mmol/L Chloride 91 L (98-107) mmol/L BUN 74 H (7-17) mg/dL Creatinine 4.86 H (0.52-1.04) mg/dL Glucose 287 H (74-99) mg/dL POC Glucose (mg/dL) (75-99) mg/dL Plasma Lactic Acid Perez 3.0 H* (0.7-2.0) mmol/L C-Reactive Protein 10.0 H (<10.0) mg/L 12/06/20 12/07/20 12/07/20 Range/Units 21:42 01:07 07:21 RBC (3.80-5.40) m/uL Hgb (11.4-16.0) gm/dL Hct (34.0-46.0) % MCV (80.0-100.0) fL MCH (25.0-35.0) pg RDW (11.5-15.5) % Lymphocytes # (1.0-4.8) k/uL ESR (0-20) mm/hr Sodium (137-145) mmol/L Potassium (3.5-5.1) mmol/L Chloride (98-107) mmol/L BUN (7-17) mg/dL Creatinine (0.52-1.04) mg/dL Glucose (74-99) mg/dL POC Glucose (mg/dL) 54 L 151 H 268 H (75-99) mg/dL Plasma Lactic Acid Perez (0.7-2.0) mmol/L C-Reactive Protein (<10.0) mg/L
[2020-12-07] MEDS: carvediloL 12.5 MG TAB PO SCH ×2 (12:17→17:19)
[2020-12-07] MEDS: LOSARTAN 25 MG TAB PO SCH (12:18)
[2020-12-07] MEDS: INSULIN LISPRO (For Pump) 100 UNIT/ML VIAL SQ-PUMP SCH (12:21)
[2020-12-07] MEDS: levOCARNitine (WITH SUGAR) 100 MG/ML BOTTLE PO SCH ×3 (12:24→22:46)
[2020-12-07] MEDS: NYSTATIN 100,000 UNIT/ML SUSP 500,000 UNIT/5 ML CUP PO SCH ×4 (12:25→22:46)
[2020-12-07] MEDS: FOLIC ACID-VIT B COMPLEX-VIT C 1 CAP PO SCH (12:25)
[2020-12-07] MEDS: MAGNESIUM OXIDE 400 MG TAB PO SCH (12:25)
[2020-12-07 12:50] LABS: Glucose,Whole Blood 101 mg/dL (75-99)
[2020-12-07] MEDS: INSULIN PUMP MEAL BOLUS 1 UNIT MISC MISCELLANE SCH ×3 (12:54→22:47)
--- NOTE | 2020-12-07 13:35 | P.GSCN ---
History of Present Illness Consult date: 12/07/20 Reason for Consult: right 2nd and 3rd toe gangrene History of present illness: 70 yo female with history of ESRD on HD, diabetes, atrial fibrillation presented to the hospital secondary right toe gangrene. She states having right foot pain and redness over the last several weeks and there was blistering at her toes and lateral foot. She has an appointment with Dr. Rosario this coming Wednesday for evaluation. She has been having increased swelling in her lower extremities as well. She denies any fevers, chills, nausea, vomiting, chest pain or shortness of breath. She states she would like to go home and is feeling better. 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 History of Any Multi-Drug Resistant Organisms: None Reported Past Surgical History: Adenoidectomy, Section, Heart Catheterization, Heart Catheterization With Stent, Orthopedic Surgery, Tonsillectomy Additional Past Surgical History / Comment(s): 2005 Kidney transplant at [facility], bilateral cataracts, retinal peeling in left eye, L achilles tendon repair, low back surgery L2-L5, L upper arm dialysis graft x2, has a total of 4 cardiac stents, 2017 repair pseudoaneurysm in groin, 2 c/s, colonoscopy. Past Anesthesia/Blood Transfusion Reactions: Motion Sickness, Postoperative Nausea & Vomiting (PONV) Additional Past Anesthesia/Blood Transfusion Reaction / Comm: PONV after C/S Date of Last Stent Placement:: 2016. Past Psychological History: No Psychological Hx Reported Additional Psychological History / Comment(s): Pt resides with her spouse. She has a cane and walker. She drives. Smoking Status: Never smoker Past Alcohol Use History: Rare Additional Past Alcohol Use History / Comment(s): Patient is a lifelong nonsmoker. Uses medical marijuana occas. for pain. Drinks a glass of red wine rarely now. Past Drug Use History: Marijuana Additional Drug Use History / Comment(s): Occasionally uses THC gummies for pain - Past Family History Son(s) Additional Family Medical History / Comment(s): atient has 2 sons no major medic al problems. Father Family Medical History: Myocardial Infarction (NH) Additional Family Medical History / Comment(s): Father of a NH at the age of 79yrs. Mother Family Medical History: Cancer Additional Family Medical History / Comment(s): Mother had breast cancer. Mother at age 86 from pneumonia. Sister(s) Family Medical History: Cancer Additional Family Medical History / Comment(s): Patient has 2 daughters no major medical problems. Medications and Allergies Home Medications Medication Instructions Recorded Confirmed Type Aspirin EC [Ecotrin Low Dose] 81 mg PO DAILY 04/09/15 12/06/20 History predniSONE 5 mg PO DAILY 04/09/15 12/06/20 History INSULIN LISPRO (For Pump) [humaLOG 0.01 units SQ-PUMP CONTINUOUS 11/26/16 12/06/20 History (For Pump)] Biotin 5,000 mcg PO DAILY 06/09/17 12/06/20 History Ubidecarenone [Coenzyme Q10] 100 mg PO DAILY 06/09/17 12/06/20 History Atorvastatin [Lipitor] 40 mg PO DAILY 10/19/18 12/06/20 History Carvedilol [Coreg] 25 mg PO BID 10/19/18 12/06/20 History Docusate [Colace] 100 mg PO TID PRN 10/19/18 12/06/20 History bisacodyL [Dulcolax] 10 mg PO DAILY PRN 10/19/18 12/06/20 History Bilberry Fruit Extract 80 mg PO DAILY 01/08/20 12/06/20 History Colchicine 0.6 mg PO DAILY PRN 01/08/20 12/06/20 History Midodrine HCl 5 - 10 mg PO BID PRN 01/08/20 12/06/20 History Pro-Stat Sugar Free 29 ml PO DAILY PRN 01/08/20 12/06/20 History Luma-Benjamin 0.8 mg PO DAILY 01/08/20 12/06/20 History levOCARNitine [Levocarnitine] 330 mg PO BID 01/08/20 12/06/20 History Calcitriol [Rocaltrol] 0.25 mcg PO RUFF 12/06/20 12/06/20 History Calcium Acetate [Phoslo] 667 mg PO TID 12/06/20 12/06/20 History Cephalexin [Keflex] 500 mg PO DAILY 12/06/20 12/06/20 History Enzymatic Digestant 1 tab PO DAILY PRN 12/06/20 12/06/20 History HYDROcodone/APAP 5-325MG [Elton 1 tab PO Q8H PRN 12/06/20 12/06/20 History 5-325] Loperamide [Imodium] 2 mg PO QID PRN 12/06/20 12/06/20 History Losartan [Cozaar] 25 mg PO DAILY 12/06/20 12/06/20 History Magnesium 200 mg PO DAILY 12/06/20 12/06/20 History Nystatin 100,000 Unit/ml Susp 5 ml PO QID 12/06/20 12/06/20 History [Mycostatin Oral Susp] Potassium Chloride [Klor-Con 20] 20 meq PO SUTH 12/06/20 12/06/20 History diphenhydrAMINE [Benadryl] 25 mg PO Q12H PRN 12/06/20 12/06/20 History traMADol HCL 50 mg PO Q6H PRN 12/06/20 12/06/20 History Allergies Allergy/AdvReac Type Severity Reaction Status Date / Time Sulfa (Sulfonamide Allergy Rash/Hives Verified 12/06/20 17:06 Antibiotics) vancomycin Allergy Rash/Hives Verified 12/06/20 17:06 venom-honey bee Allergy Swelling Verified 12/06/20 17:06 [bee venom (honey bee)] metoprolol tartrate AdvReac Confusion Verified 12/06/20 17:06 [From Lopressor] Surgical - Exam Vital Signs Temp Pulse Resp BP Pulse Ox 98.0 F 60 18 107/47 100 12/06/20 14:36 12/06/20 14:36 12/06/20 14:36 12/06/20 14:36 12/06/20 14:36 right 2nd and 3rd toes with distal dry gangrene, ischemic changes. Foot is with edema 2+ pitting. Minimal TTP, no drainage from wounds. Right lateral foot ulcer is shallow with fibrinous tissue. No drainage or surround erythema. Non palpable dp or pt pulses. Difficult to assess femoral pulses secondary to sitting in chair receiving dialysis. Left upper extremity loop graft functioning well. - General well developed, well nourished, no distress - Eyes PERRL - ENT normal pinna, normal nares, decreased hearing - Neck no masses - Respiratory normal expansion - Cardiovascular Rhythm: regular - Abdomen Abdomen: soft, non tender - Integumentary no rash - Psychiatric oriented to time, oriented to person, oriented to place, speech is normal Results - Labs 12/06/20 15:25 12/06/20 15:25 Abnormal Lab Results - Last 24 Hours (Table) 12/06/20 12/06/20 12/06/20 Range/Units 15:25 15:25 15:25 RBC 2.82 L (3.80-5.40) m/uL Hgb 10.3 L (11.4-16.0) gm/dL Hct 28.5 L (34.0-46.0) % MCV 101.0 H (80.0-100.0) fL MCH 36.6 H (25.0-35.0) pg RDW 18.0 H (11.5-15.5) % Lymphocytes # 0.7 L (1.0-4.8) k/uL ESR 48 H (0-20) mm/hr Sodium 131 L (137-145) mmol/L Potassium 5.5 H (3.5-5.1) mmol/L Chloride 91 L (98-107) mmol/L BUN 74 H (7-17) mg/dL Creatinine 4.86 H (0.52-1.04) mg/dL Glucose 287 H (74-99) mg/dL POC Glucose (mg/dL) (75-99) mg/dL Plasma Lactic Acid Perez 3.0 H* (0.7-2.0) mmol/L C-Reactive Protein 10.0 H (<10.0) mg/L 12/06/20 12/07/20 12/07/20 Range/Units 21:42 01:07 07:21 RBC (3.80-5.40) m/uL Hgb (11.4-16.0) gm/dL Hct (34.0-46.0) % MCV (80.0-100.0) fL MCH (25.0-35.0) pg RDW (11.5-15.5) % Lymphocytes # (1.0-4.8) k/uL ESR (0-20) mm/hr Sodium (137-145) mmol/L Potassium (3.5-5.1) mmol/L Chloride (98-107) mmol/L BUN (7-17) mg/dL Creatinine (0.52-1.04) mg/dL Glucose (74-99) mg/dL POC Glucose (mg/dL) 54 L 151 H 268 H (75-99) mg/dL Plasma Lactic Acid Perez (0.7-2.0) mmol/L C-Reactive Protein (<10.0) mg/L 12/07/20 Range/Units 12:49 RBC (3.80-5.40) m/uL Hgb (11.4-16.0) gm/dL Hct (34.0-46.0) % MCV (80.0-100.0) fL MCH (25.0-35.0) pg RDW (11.5-15.5) % Lymphocytes # (1.0-4.8) k/uL ESR (0-20) mm/hr Sodium (137-145) mmol/L Potassium (3.5-5.1) mmol/L Chloride (98-107) mmol/L BUN (7-17) mg/dL Creatinine (0.52-1.04) mg/dL Glucose (74-99) mg/dL POC Glucose (mg/dL) 101 H (75-99) mg/dL Plasma Lactic Acid Perez (0.7-2.0) mmol/L C-Reactive Protein (<10.0) mg/L Diabetes panel 12/06/20 Range/Units 15:25 Sodium 131 L (137-145) mmol/L Potassium 5.5 H (3.5-5.1) mmol/L Chloride 91 L (98-107) mmol/L Carbon Dioxide 26 (22-30) mmol/L BUN 74 H (7-17) mg/dL Creatinine 4.86 H (0.52-1.04) mg/dL Glucose 287 H (74-99) mg/dL Calcium 9.1 (8.4-10.2) mg/dL AST 27 (14-36) U/L ALT 24 (4-34) U/L Alkaline Phosphatase 91 (38-126) U/L Total Protein 6.3 (6.3-8.2) g/dL Albumin 3.6 (3.5-5.0) g/dL Calcium panel 12/06/20 Range/Units 15:25 Calcium 9.1 (8.4-10.2) mg/dL Albumin 3.6 (3.5-5.0) g/dL Pituitary panel 12/06/20 Range/Units 15:25 Sodium 131 L (137-145) mmol/L Potassium 5.5 H (3.5-5.1) mmol/L Chloride 91 L (98-107) mmol/L Carbon Dioxide 26 (22-30) mmol/L BUN 74 H (7-17) mg/dL Creatinine 4.86 H (0.52-1.04) mg/dL Glucose 287 H (74-99) mg/dL Calcium 9.1 (8.4-10.2) mg/dL Adrenal panel 12/06/20 Range/Units 15:25 Sodium 131 L (137-145) mmol/L Potassium 5.5 H (3.5-5.1) mmol/L Chloride 91 L (98-107) mmol/L Carbon Dioxide 26 (22-30) mmol/L BUN 74 H (7-17) mg/dL Creatinine 4.86 H (0.52-1.04) mg/dL Glucose 287 H (74-99) mg/dL Calcium 9.1 (8.4-10.2) mg/dL Total Bilirubin 0.5 (0.2-1.3) mg/dL AST 27 (14-36) U/L ALT 24 (4-34) U/L Alkaline Phosphatase 91 (38-126) U/L Total Protein 6.3 (6.3-8.2) g/dL Albumin 3.6 (3.5-5.0) g/dL Assessment and Plan Assessment: 1. Right 2nd and 3rd toe dry gangrene 2. Right lateral foot ulceration 3. Bilateral lower extremity edema 4. DM 5. ESRD on HD Plan: Allow toes to demarcate. Agree with antibiotics and would recommend continuing oral as outpatient. No surgical intervention at this time. Will likely need amputation in future. Continue local wound care with meta honey to ulcer. Obtain lower extremity arterial dopplers- which can be done as outpatient. Patient is ok for discharge from vascular standpoint and follow up in office Wednesday with Dr. Rosario. Thank you for the consultation.
--- NOTE | 2020-12-07 16:06 | P.NPCON ---
History of Present Illness - Reason for Consult Consult date: 12/07/20 end stage renal disease - Chief Complaint Toe infection - History of Present Illness ESRD on home hemodialysis for the last 1 year. She had renal transplant in 2004 feet a year ago and since then on home hemodialysis 5 days a week while left upper arm AVG. She came in with right toes infection evaluated by vascular surgery advised for amputation as outpatient. Denies any nausea vomiting diarr hea. Had dialysis today with 1 L of ultra filtration. Review of Systems Constitutional: Reports as per HPI Past Medical History Past Medical History: Atrial Fibrillation, Coronary Artery Disease (CAD), Diabetes Mellitus, Dialysis, GERD/Reflux, Hearing Disorder / Deafness, Hyperlipidemia, Hypertension, Osteoarthritis (OA), Renal Disease Additional Past Medical History / Comment(s): 2004 renal transplant, CKD stage IV-pt returned to [facility] M/W/F with last diaylsis 01/05/20, ch ronic anemia, new lesion anterior R lower leg-appeared 2-3 days ago, IDDM type II with insulin pump, neuropathy bilateral feet, chronic pedal edema, arthritis bilateral feet great toes, gout bilateral feet, chronic muscle pain in neck and around L hip, EKUK bilaterally-aides, pt follows a mostly gluten free diet. History of Any Multi-Drug Resistant Organisms: None Reported Past Surgical History: Adenoidectomy, Section, Heart Catheterization, Heart Catheterization With Stent, Orthopedic Surgery, Tonsillectomy Additional Past Surgical History / Comment(s): 2005 Kidney transplant at [facility], bilateral cataracts, retinal peeling in left eye, L achilles tendon repair, low back surgery L2-L5, L upper arm dialysis graft x2, has a total of 4 cardiac stents, 2017 repair pseudoaneurysm in groin, 2 c/s, colonoscopy. Past Anesthesia/Blood Transfusion Reactions: Motion Sickness, Postoperative Nausea & Vomiting (PONV) Additional Past Anesthesia/Blood Transfusion Reaction / Comment(s): PONV after C/S Date of Last Stent Placement:: 2016. Past Psychological History: No Psychological Hx Reported Additional Psychological History / Comment(s): Pt resides with her spouse. She has a cane and walker. She drives. Smoking Status: Never smoker Past Alcohol Use History: Rare Additional Past Alcohol Use History / Comment(s): Patient is a lifelong nonsmoker. Uses medical marijuana occas. for pain. Drinks a glass of red wine rarely now. Past Drug Use History: Marijuana Additional Drug Use History / Comment(s): Occasionally uses THC gummies for pain - Past Family History Son(s) Additional Family Medical History / Comment(s): lea has 2 sons no major medical problems. Father Family Medical History: Myocardial Infarction (LA) Additional Family Medical History / Comment(s): Father of a [place] at the age of 79yrs. Mother Family Medical History: Cancer Additional Family Medical History / Comment(s): Mother had breast cancer. Mother at age 86 from pneumonia. Sister(s) Family Medical History: Cancer Additional Family Medical History / Comment(s): Patient has 2 daughters no major medical problems. Medications and Allergies Home Medications Medication Instructions Recorded Confirmed Type Aspirin EC [Ecotrin Low Dose] 81 mg PO DAILY 04/09/15 12/06/20 History predniSONE 5 mg PO DAILY 04/09/15 12/06/20 History INSULIN LISPRO (For Pump) [humaLOG 0.01 units SQ-PUMP CONTINUOUS 11/26/16 12/06/20 History (For Pump)] Biotin 5,000 mcg PO DAILY 06/09/17 12/06/20 History Ubidecarenone [Coenzyme Q10] 100 mg PO DAILY 06/09/17 12/06/20 History Atorvastatin [Lipitor] 40 mg PO DAILY 10/19/18 12/06/20 History Carvedilol [Coreg] 25 mg PO BID 10/19/18 12/06/20 History Docusate [Colace] 100 mg PO TID PRN 10/19/18 12/06/20 History bisacodyL [Dulcolax] 10 mg PO DAILY PRN 10/19/18 12/06/20 History Bilberry Fruit Extract 80 mg PO DAILY 01/08/20 12/06/20 History Colchicine 0.6 mg PO DAILY PRN 01/08/20 12/06/20 History Midodrine HCl 5 - 10 mg PO BID PRN 01/08/20 12/06/20 History Pro-Stat Sugar Free 29 ml PO DAILY PRN 01/08/20 12/06/20 History Luma-Benjamin 0.8 mg PO DAILY 01/08/20 12/06/20 History levOCARNitine [Levocarnitine] 330 mg PO BID 01/08/20 12/06/20 History Calcitriol [Rocaltrol] 0.25 mcg PO RUFF 12/06/20 12/06/20 History Calcium Acetate [Phoslo] 667 mg PO TID 12/06/20 12/06/20 History Cephalexin [Keflex] 500 mg PO DAILY 12/06/20 12/06/20 History Enzymatic Digestant 1 tab PO DAILY PRN 12/06/20 12/06/20 History HYDROcodone/APAP 5-325MG [[place] 1 tab PO Q8H PRN 12/06/20 12/06/20 History 5-325] Loperamide [Imodium] 2 mg PO QID PRN 12/06/20 12/06/20 History Losartan [Cozaar] 25 mg PO DAILY 12/06/20 12/06/20 History Magnesium 200 mg PO DAILY 12/06/20 12/06/20 History Nystatin 100,000 Unit/ml Susp 5 ml PO QID 12/06/20 12/06/20 History [Mycostatin Oral Susp] Potassium Chloride [Klor-Con 20] 20 meq PO SUTH 12/06/20 12/06/20 History diphenhydrAMINE [Benadryl] 25 mg PO Q12H PRN 12/06/20 12/06/20 History traMADol HCL 50 mg PO Q6H PRN 12/06/20 12/06/20 History Allergies Allergy/AdvReac Type Severity Reaction Status Date / Time Sulfa (Sulfonamide Allergy Rash/Hives Verified 12/06/20 17:06 Antibiotics) vancomycin Allergy Rash/Hives Verified 12/06/20 17:06 venom-honey bee Allergy Swelling Verified 12/06/20 17:06 [bee venom (honey bee)] metoprolol tartrate AdvReac Confusion Verified 12/06/20 17:06 [From Lopressor] Physical Exam Vitals: Vital Signs Temp Pulse Pulse Resp BP BP BP 12/07/20 08:00 78 18 12/07/20 05:00 97.8 F 80 18 95/59 12/06/20 21:45 76 18 12/06/20 21:26 98.0 F 76 18 103/61 12/06/20 20:35 98.1 F 71 18 103/55 12/06/20 18:00 70 18 100/55 Pulse Ox 12/07/20 08:00 12/07/20 05:00 99 12/06/20 21:45 12/06/20 21:26 97 12/06/20 20:35 98 12/06/20 18:00 98 Intake and Output 12/07/20 12/07/20 12/07/20 06:59 14:59 22:59 Intake Total 1755 Balance 1755 Intake: Intake, IV Titration 675 Amount Sodium Chloride 0.9% 1, 675 000 ml @ 75 mls/hr IV . [id number] [facility] Rx#:[id number] Oral 1080 Other: Voiding Method Toilet # Voids 1 No acute distress S1-S2 heard Decreased breath sounds Left upper arm AVG Edema Results - Lab Results Most recent lab results Calcium 9.1 mg/dL (8.4-10.2) 12/06/20 15:25 12/06/20 15:25 12/06/20 15:25 Assessment and Plan Assessment: #1 ESRD on home hemodialysis well left upper arm AVG 5 days a week. #2 right second third toe dry gangrene #3 anemia with ESRD #4 hypotension on midodrine #5 metabolic bone disease with ESRD Plan: #1 hemodialysis today for volume and hyperkalemia. #2 appreciate vascular surgery input #3 stable for discharge from nephrology.
[2020-12-07 17:29] LABS: Glucose,Whole Blood 213 mg/dL (75-99)
[2020-12-07] MEDS: HYDROcodone/APAP 5-325MG 1 EACH TAB PO PRN (17:33)
[2020-12-07 18:53] LABS: Hepatitis B Surface AB- Quant 3.5 mIU/mL; Hepatitis B Surface Antibody Non-Reactive (Non-Reactive); Hepatitis B Surface Antigen Non-Reactive (Non-Reactive)
[2020-12-07 20:29] LABS: Glucose,Whole Blood 255 mg/dL (75-99)
--- NOTE | 2020-12-07 20:30 | CONS ---
CONSULTATION DATE OF SERVICE: 12/07/2020 REASON FOR CONSULTATION: Right third and fourth toe gangrene and question of cellulitis. HISTORY OF PRESENT ILLNESS: The patient is a 70-year-old female with past medical history significant for end-stage renal disease status post transplant, currently on dialysis and this patient apparently developed a blister on her right 3rd and 4th toe a few weeks ago that has been treated by protective dressing. For the last few days, the patient noticed that it started getting black and discolored. The patient does have underlying neuropathy and denies significant pain. The patient denies having any purulent drainage or fever or any chills. She did have minimal swelling and slight redness. The patient has been evaluated in the outpatient setting by her primary care physician. The patient started on Keflex and was advised if any worsening swelling or redness, that she should go to the hospital. The patient noticed slightly more swelling and redness and concerned her and she came to the hospital. On arrival to the ER, the patient was afebrile. The patient did have x-rays of the foot with evidence of osteopenia, findings consistent with underlying diabetes, possible osteomyelitis. The patient did have a white count of 13 but normal white count 9.2. Sedimentation rate was 48. Martino PCR was negative. She did receive a dose of Rocephin 2 grams daily x1. Subsequent admitted to the hospital. Infectious Disease was consulted for further management of antibiotic therapy. The patient has been evaluated by vascular surgery, recommending outpatient followup. The patient did mention she is feeling better and would like to go home. REVIEW OF SYSTEMS: Positive points have been mentioned in HPI. Rest of systems negative. PAST MEDICAL HISTORY: Atrial fibrillation, coronary artery disease, diabetes mellitus, end-stage renal disease on hemodialysis, hyperlipidemia, hypertension, osteoarthritis. PAST SURGICAL HISTORY: Renal transplant, , PTCA with stent, tonsillectomy bilateral cataract surgery and dialysis graft. SOCIAL HISTORY: No history of smoking. Rarely drinks. No drug use. FAMILY HISTORY: Father history of [place]. Mother history of breast cancer. ALLERGIES: TO SULFA, VANCOMYCIN, METOPROLOL. MEDICATIONS: The patient is currently on: Tylenol, [place], Lipitor, Dulcolax, Rocaltrol, PhosLo, Coreg, Colace, Pepcid, heparin, hydrocortisone cream, Dilaudid, NovoLog, Imodium, Cozaar, Mag oxide. PHYSICAL EXAMINATION: Blood pressure 136/64, pulse of 82, temperature 97.3. He is 99% on room air. General appearance: The patient is an elderly female up in the chair in no distress. No tachypnea or accessory muscles of respiration use. HEENT: Examination shows slight pallor. No scleral icterus. Oral mucous membranes dry. No pharyngeal erythema or thrush. NECK: Trachea central. No thyromegaly. LUNGS: Unlabored breathing, clear to auscultation anteriorly. HEART S1, S2. Regular rate and rhythm. ABDOMEN: Soft, no tenderness. No guarding or rigidity. EXTREMITIES: No edema of the feet. Examination of the right foot 3rd and 4th toe currently necrotic. Minimal surrounding swelling. Significant amount of redness. No significant warmth or any foul-smelling drainage. NEUROLOGICAL: Patient is awake, alert, oriented times three. Mood and affect normal. LABS: Hemoglobin is 10.3, white count 9.2. BUN of 74, creatinine 4.86, lactic acid is 3.8, repeat is 1.6. DIAGNOSTIC IMPRESSION AND PLAN: 1. Patient with right diabetic foot infection with gangrene of the right 3rd and 4th toe, possible ischemic secondary cellulitis less likely but not entirely excluded in this patient currently with no fever or elevated white count. 2. Patient with MULTIPLE ANTIBIOTIC ALLERGIES that will limit the number of antibiotics safe to use. PLAN: We will start the patient on cefazolin 2 grams daily. Dose adjusted with kidney function. However, when the patient remains to improve and has been cleared by vascular surgery, may consider short course of oral Ceftin or Keflex on discharge until the patient is evaluated by vascular surgeon in the outpatient setting for possible amputation of these two toes. Thank you for this consultation. Will follow this patient along with you. MMODL / IJN: [id number] /
[2020-12-07] MEDS: ONDANSETRON 4 MG/2 ML VIAL IVP PRN (21:50)
[2020-12-07 21:58] VITALS: RESP 16
[2020-12-07] MEDS: HEPARIN SODIUM,PORCINE 5,000 UNIT/ML 1 ML VIAL SQ SCH (22:45)
[2020-12-07] MEDS: HYDROCORTISONE 1% CREAM 454 GM JAR TOPICAL SCH (22:49)
[2020-12-07 23:28] LABS: Glucose,Whole Blood 216 mg/dL (75-99)
[2020-12-08] MEDS: HYDROcodone/APAP 5-325MG 1 EACH TAB PO PRN (00:54)
[2020-12-08 02:18] LABS: Glucose,Whole Blood 131 mg/dL (75-99)
[2020-12-08] MEDS: HYDROmorphone 0.5 MG/0.5 ML SYRINGE IVP PRN (03:04)
[2020-12-08] MEDS: ONDANSETRON 4 MG/2 ML VIAL IVP PRN (04:03)
[2020-12-08 05:36] VITALS: TEMP 97.7
[2020-12-08 07:49] LABS: Glucose,Whole Blood 248 mg/dL (75-99)
[2020-12-08] MEDS ORDERED: POTASSIUM CHLORIDE ER 20 MEQ TAB.ER PO SCH (09:00)
[2020-12-08] MEDS ORDERED: FAMOTIDINE 20 MG TAB PO SCH (09:00)
[2020-12-08] MEDS: levOCARNitine (WITH SUGAR) 100 MG/ML BOTTLE PO SCH (09:05)
[2020-12-08 09:14] VITALS: BP 118/68; PULSE 77
[2020-12-08] MEDS: LOSARTAN 25 MG TAB PO SCH (09:14)
[2020-12-08] MEDS: MAGNESIUM OXIDE 400 MG TAB PO SCH (09:14)
[2020-12-08] MEDS: ATORVASTATIN 40 MG TAB PO SCH (09:14)
[2020-12-08] MEDS: FOLIC ACID-VIT B COMPLEX-VIT C 1 CAP PO SCH (09:15)
[2020-12-08] MEDS: HEPARIN SODIUM,PORCINE 5,000 UNIT/ML 1 ML VIAL SQ SCH (09:15)
[2020-12-08] MEDS: CALCIUM ACETATE 667 MG TAB PO SCH (09:15)
[2020-12-08] MEDS: HYDROCORTISONE 1% CREAM 454 GM JAR TOPICAL SCH (09:15)
[2020-12-08] MEDS: carvediloL 12.5 MG TAB PO SCH (09:15)
[2020-12-08] MEDS: INSULIN PUMP MEAL BOLUS 1 UNIT MISC MISCELLANE SCH (09:18)
[2020-12-08] MEDS: INSULIN LISPRO (For Pump) 100 UNIT/ML VIAL SQ-PUMP SCH (10:56)
[2020-12-08] MEDS: SODIUM CHLORIDE 0.9% 1,000 ML IV SCH (10:56)
--- NOTE | 2020-12-08 12:01 | P.DS ---
Providers Date of admission: 12/06/20 17:20 Attending physician: Pepito Carter MD Consults: 12/06/20 17:43 Consult Physician Urgent Consulting Provider: Susie Huynh Consult Reason/Comments: dialysis patient Do you want consulting provider notified?: Yes 12/06/20 17:44 Consult Physician Urgent Consulting Provider: Man Saldana Consult Reason/Comments: gangrene of third and fourth digit on the right foot, possible osteo Do you want consulting provider notified?: Yes 12/06/20 17:48 Consult Physician Urgent Consulting Provider: Taya Braun Consult Reason/Comments: gangrene of third and fourth digit on the right foot, possible osteomyeliti Do you want consulting provider notified?: Yes Primary care physician: [facility] Course: This is a 70-year-old female known to Dr. Cordova with a past medical history of atrial fibrillation, type 1 diabetes with insulin pump, renal disease post transplant currently on dialysis at home 5 times a week. Patient presented to the emergency room with complaints of right foot pain and her toes turning black. Patient states that she noticed it about 3 weeks ago when there was blistering on the third and fourth digit of her right foot. She was seen at her PCPs office and was given Keflex and back saturation to the site. She was instr ucted that if the ulcerations were said to come to the emergency room. She was set up with Dr. Rosario to be seen for evaluation of her arterial status, however the appointment was not until this Wednesday. Patient's last dialysis was yesterday. Patient denied any fevers or chills. X-ray showed osteomyelitis. At this time patient is found sitting up in a chair in moderate distress. Patient is complaining of severe pain to the neck and shoulders. She has been seeing Dr. Ana Luisa mei for spinal compression. She underwent an MRI and was scheduled to have a CT without contrast for evaluation. There is discussion for possible surgery to the neck for the discomfort. Patient was set up for an outpatient CT without contrast to the cervical spine if surgery today and is to occur this should be done prior to rule out any fractures or dislocations. Patient is also complaining of hoarseness to her voice. She denies any sore throat pain with swallowing. Patient did notice that she had increased edema to her bilateral lower legs. Patient states Onofre 3 weeks ago she noticed blistering to her skin and her nails fell off the third and fourth digit of her right foot. At that time she did have some serosanguineous drainage however that has cleared up. Within the last few days she noticed her toes continuing to dark and worsening yesterday. 12/08: Patient will be discharged home today on oral antibiotics and Zofran. The x-ray only showed possible osteomyelitis. Patient has agreed for diabetic foot ulcer to the third and fourth digit of the right foot. Oral antibiotics per infectious disease. And localized wound care of melena honey to the ulcers. Allow toes to demarcate. Surgical vein intervention may be needed in the future an outpatient setting. Arterial Dopplers to be done prior to discharge. Patient will follow-up with Dr. Rosario on Wednesday in her office. Discharge diagnosis: 1. Gangrene of the third and fourth digit of right foot. 2. Diabetic foot ulcer dangelo grade 4, 3. Poss. osteomyelitis noted to the right foot, 4. Chronic diastolic heart failure, 5. History of coronary artery disease status post stent with RCA and LAD circumflex, 6. Severe pulmonary hypertension, 7. End-stage renal dialysis on hemodialysis 5 times a week, 8. Cervical spinal stenosis. 9. Diabetes mellitus on insulin pump. 10. Hyperlipidemia 11. Hypertension 12. GERD 13. Valvular heart disease with moderate severe tricuspid regurgitation, 14. Anemia of chronic kidney disease. 15; dermatitis: Discharge disposition: Home with self-care. Patient Condition at Discharge: Stable Plan - Discharge Summary New Discharge Prescriptions: New Ondansetron HCl [Zofran] 4 mg PO Q8H PRN #21 tab PRN Reason: Nausea And Vomiting Continue Aspirin EC [Ecotrin Low Dose] 81 mg PO DAILY INSULIN LISPRO (For Pump) [humaLOG (For Pump)] 0.01 units SQ-PUMP CONTINUOUS Ubidecarenone [Coenzyme Q10] 100 mg PO DAILY Biotin 5,000 mcg PO DAILY Docusate [Colace] 100 mg PO TID PRN PRN Reason: Constipation Carvedilol [Coreg] 25 mg PO BID bisacodyL [Dulcolax] 10 mg PO DAILY PRN PRN Reason: Constipation Atorvastatin [Lipitor] 40 mg PO DAILY Pro-Stat Sugar Free 29 ml PO DAILY PRN PRN Reason: PROTEIN SUPPLEMENT Colchicine 0.6 mg PO DAILY PRN PRN Reason: GOUT Bilberry Fruit Extract 80 mg PO DAILY levOCARNitine [Levocarnitine] 330 mg PO BID Luma-Benjamin 0.8 mg PO DAILY Midodrine HCl 5 - 10 mg PO BID PRN PRN Reason: LOW BP Enzymatic Digestant 1 tab PO DAILY PRN PRN Reason: Wound Healing Calcitriol [Rocaltrol] 0.25 mcg PO RUFF Calcium Acetate [PhosLo] 667 mg PO TID diphenhydrAMINE [Benadryl] 25 mg PO Q12H PRN PRN Reason: Allergy Symptoms HYDROcodone/APAP 5-325MG [[place] 5-325] 1 tab PO Q8H PRN PRN Reason: Pain Loperamide [Imodium] 2 mg PO QID PRN PRN Reason: Loose Stool Losartan [Cozaar] 25 mg PO DAILY Magnesium 200 mg PO DAILY Nystatin 100,000 Unit/ml Susp [Mycostatin Oral Susp] 5 ml PO QID Potassium Chloride [Klor-Con 20] 20 meq PO SUTH traMADol HCL 50 mg PO Q6H PRN PRN Reason: Pain Cephalexin [Keflex] 500 mg PO DAILY #7 cap Discontinued predniSONE 5 mg PO DAILY Discharge Medication List Aspirin EC [Ecotrin Low Dose] 81 mg PO DAILY 04/09/15 [History] INSULIN LISPRO (For Pump) [humaLOG (For Pump)] 0.01 units SQ-PUMP CONTINUOUS 11/26/16 [History] Biotin 5,000 mcg PO DAILY 06/09/17 [History] Ubidecarenone [Coenzyme Q10] 100 mg PO DAILY 06/09/17 [History] Atorvastatin [Lipitor] 40 mg PO DAILY 10/19/18 [History] Carvedilol [Coreg] 25 mg PO BID 10/19/18 [History] Docusate [Colace] 100 mg PO TID PRN 10/19/18 [History] bisacodyL [Dulcolax] 10 mg PO DAILY PRN 10/19/18 [History] Bilberry Fruit Extract 80 mg PO DAILY 01/08/20 [History] Colchicine 0.6 mg PO DAILY PRN 01/08/20 [History] Midodrine HCl 5 - 10 mg PO BID PRN 01/08/20 [History] Pro-Stat Sugar Free 29 ml PO DAILY PRN 01/08/20 [History] Luma-Benjamin 0.8 mg PO DAILY 01/08/20 [History] levOCARNitine [Levocarnitine] 330 mg PO BID 01/08/20 [History] Calcitriol [Rocaltrol] 0.25 mcg PO RUFF 12/06/20 [History] Calcium Acetate [PhosLo] 667 mg PO TID 12/06/20 [History] Enzymatic Digestant 1 tab PO DAILY PRN 12/06/20 [History] HYDROcodone/APAP 5-325MG [[place] 5-325] 1 tab PO Q8H PRN 12/06/20 [History] Loperamide [Imodium] 2 mg PO QID PRN 12/06/20 [History] Losartan [Cozaar] 25 mg PO DAILY 12/06/20 [History] Magnesium 200 mg PO DAILY 12/06/20 [History] Nystatin 100,000 Unit/ml Susp [Mycostatin Oral Susp] 5 ml PO QID 12/06/20 [History] Potassium Chloride [Klor-Con 20] 20 meq PO SUTH 12/06/20 [History] diphenhydrAMINE [Benadryl] 25 mg PO Q12H PRN 12/06/20 [History] traMADol HCL 50 mg PO Q6H PRN 12/06/20 [History] Cephalexin [Keflex] 500 mg PO DAILY #7 cap 12/08/20 [Rx] Ondansetron HCl [Zofran] 4 mg PO Q8H PRN #21 tab 12/08/20 [Rx] Follow up Appointment(s)/Referral(s): Refugio Cordova MD [Primary Care Provider] - 1-2 days [facility], [NON-STAFF] - 1 Week Discharge Disposition: HOME WITH HOME HEALTH SERVICES
--- NOTE | 2020-12-11 10:42 | P.ARTDOP ---
Arterial Doppler LOWER EXTREMITY ARTERIAL DOPPLER: DATE OF SERVICE: 12/08/2020 Reason for study: Gangrenous toes right foot. Doppler waveforms: Multiphasic proximally and atypical distally area and to waveforms are somewhat blunted. Pulse volume recording: []. Pressure gradients: Only measured at the foot level Ankle-brachial indices: Cannot be occluded. Toe brachial indices: 0.45 on the right, 0.66 on the left Impression: Pressure readings are not helpful. Lack of ability occlude the ankle suggests significant calcific wall disease. Suspect moderate fem-pop disease with largest defect distally. May have adequate circulation for healing. Clinical correlation per Dr. Saldana..
== END 2020-12-08 11:08 | disposition home health service (06) | DRG 299 ==
LOC: EC 14:34 → 5NMEDONC 17:20
PROVIDERS: ADMIT Internal Medicine; ATTEND Internal Medicine
PROC: 5A1D70Z Performance of Urinary Filtration, Intermittent, Less than 6 Hours Per Day (ICD-10-PCS; principal; 2020-12-06)
DX: E10.52 Type 1 diabetes mellitus with diabetic peripheral angiopathy with gangrene (principal); N18.6 End stage renal disease; T86.12 Kidney transplant failure; I13.2 Hypertensive heart and chronic kidney disease with heart failure and with stage 5 chronic kidney disease, or end stage renal disease; N17.9 Acute kidney failure, unspecified; I96 Gangrene, not elsewhere classified; M86.9 Osteomyelitis, unspecified; I50.32 Chronic diastolic (congestive) heart failure; E87.2 Acidosis; E10.621 Type 1 diabetes mellitus with foot ulcer; E10.42 Type 1 diabetes mellitus with diabetic polyneuropathy; E10.69 Type 1 diabetes mellitus with other specified complication; D63.1 Anemia in chronic kidney disease; I27.20 Pulmonary hypertension, unspecified; L97.519 Non-pressure chronic ulcer of other part of right foot with unspecified severity; E10.22 Type 1 diabetes mellitus with diabetic chronic kidney disease; Z99.2 Dependence on renal dialysis; Z79.4 Long term (current) use of insulin; Z20.822 Contact with and (suspected) exposure to COVID-19; E78.5 Hyperlipidemia, unspecified; I95.9 Hypotension, unspecified; E87.5 Hyperkalemia; I08.1 Rheumatic disorders of both mitral and tricuspid valves; I25.10 Atherosclerotic heart disease of native coronary artery without angina pectoris; M85.871 Other specified disorders of bone density and structure, right ankle and foot; K21.9 Gastro-esophageal reflux disease without esophagitis; H91.90 Unspecified hearing loss, unspecified ear; M48.02 Spinal stenosis, cervical region; M19.90 Unspecified osteoarthritis, unspecified site; R49.0 Dysphonia; L30.9 Dermatitis, unspecified; Z79.82 Long term (current) use of aspirin; Z79.51 Long term (current) use of inhaled steroids; Z79.899 Other long term (current) drug therapy; Z96.41 Presence of insulin pump (external) (internal); Z90.89 Acquired absence of other organs; Z95.5 Presence of coronary angioplasty implant and graft; Z87.39 Personal history of other diseases of the musculoskeletal system and connective tissue; Z86.79 Personal history of other diseases of the circulatory system; Z98.42 Cataract extraction status, left eye; Z98.41 Cataract extraction status, right eye; Z98.891 History of uterine scar from previous surgery; Z98.890 Other specified postprocedural states; Z88.2 Allergy status to sulfonamides; Z88.8 Allergy status to other drugs, medicaments and biological substances; Z88.1 Allergy status to other antibiotic agents; Z91.030 Bee allergy status; Z82.49 Family history of ischemic heart disease and other diseases of the circulatory system; Z80.3 Family history of malignant neoplasm of breast; Z83.6 Family history of other diseases of the respiratory system; Y83.0 Surgical operation with transplant of whole organ as the cause of abnormal reaction of the patient, or of later complication, without mention of misadventure at the time of the procedure
CPT/HCPCS: 36415; 80053; 83605; 85025; 85652; 86140; 86706; 87040; 87340; 87635; 90935; 93923; 96365; 96375; 99284

== ENCOUNTER 2020-12-10 08:26 | Emergency (ER) | payer MEDICARE ==
[2020-12-10] MEDS ORDERED: SODIUM CHLORIDE 0.9% 500 ML 500 ML IV SCH (08:45)
[2020-12-10] MEDS ORDERED: EPINEPHrine 10 ML SYRINGE (0.1 MG/ML) IV STA (08:49)
[2020-12-10] MEDS ORDERED: EPINEPHrine 1 MG/ML 1 ML AMP IV STA (08:49)
--- NOTE | 2020-12-10 08:56 | ED ---
General Adult HPI - General Stated complaint: SOB Time Seen by Provider: 12/10/20 08:28 Source: patient, EMS, RN notes reviewed Mode of arrival: EMS Limitations: altered mental status, physical limitation - History of Present Illness Initial comments: Patient is a pleasant 70-year-old female presenting to the emergency department with fatigue and dyspnea. Patient is a very poor historian and offers very little information. Unclear onset. Chart review pupils patient was recently in Hospital with toe infection. Unclear patient has history of similar symptoms previously. Patient states symptoms are fairly severe. Patient denies any pain. - Related Data Home Medications Medication Instructions Recorded Confirmed Aspirin EC [Ecotrin Low Dose] 81 mg PO DAILY 04/09/15 12/06/20 INSULIN LISPRO (For Pump) [humaLOG 0.01 units SQ-PUMP CONTINUOUS 11/26/16 12/06/20 (For Pump)] Biotin 5,000 mcg PO DAILY 06/09/17 12/06/20 Ubidecarenone [Coenzyme Q10] 100 mg PO DAILY 06/09/17 12/06/20 Atorvastatin [Lipitor] 40 mg PO DAILY 10/19/18 12/06/20 Carvedilol [Coreg] 25 mg PO BID 10/19/18 12/06/20 Docusate [Colace] 100 mg PO TID PRN 10/19/18 12/06/20 bisacodyL [Dulcolax] 10 mg PO DAILY PRN 10/19/18 12/06/20 Bilberry Fruit Extract 80 mg PO DAILY 01/08/20 12/06/20 Colchicine 0.6 mg PO DAILY PRN 01/08/20 12/06/20 Midodrine HCl 5 - 10 mg PO BID PRN 01/08/20 12/06/20 Pro-Stat Sugar Free 29 ml PO DAILY PRN 01/08/20 12/06/20 Luma-Benjamin 0.8 mg PO DAILY 01/08/20 12/06/20 levOCARNitine [Levocarnitine] 330 mg PO BID 01/08/20 12/06/20 Calcitriol [Rocaltrol] 0.25 mcg PO RUFF 12/06/20 12/06/20 Calcium Acetate [PhosLo] 667 mg PO TID 12/06/20 12/06/20 Enzymatic Digestant 1 tab PO DAILY PRN 12/06/20 12/06/20 HYDROcodone/APAP 5-325MG [[place] 1 tab PO Q8H PRN 12/06/20 12/06/20 5-325] Loperamide [Imodium] 2 mg PO QID PRN 12/06/20 12/06/20 Losartan [Cozaar] 25 mg PO DAILY 12/06/20 12/06/20 Magnesium 200 mg PO DAILY 12/06/20 12/06/20 Nystatin 100,000 Unit/ml Susp 5 ml PO QID 12/06/20 12/06/20 [Mycostatin Oral Susp] Potassium Chloride [Klor-Con 20] 20 meq PO SUTH 12/06/20 12/06/20 diphenhydrAMINE [Benadryl] 25 mg PO Q12H PRN 12/06/20 12/06/20 traMADol HCL 50 mg PO Q6H PRN 12/06/20 12/06/20 Previous Rx's Medication Instructions Recorded Cephalexin [Keflex] 500 mg PO DAILY #7 cap 12/08/20 Ondansetron HCl [Zofran] 4 mg PO Q8H PRN #21 tab 12/08/20 Allergies Allergy/AdvReac Type Severity Reaction Status Date / Time Sulfa (Sulfonamide Allergy Rash/Hives Verified 12/06/20 17:06 Antibiotics) vancomycin Allergy Rash/Hives Verified 12/06/20 17:06 venom-honey bee Allergy Swelling Verified 12/06/20 17:06 [bee venom (honey bee)] metoprolol tartrate AdvReac Confusion Verified 12/06/20 17:06 [From Lopressor] Review of Systems ROS Statement: Those systems with pertinent positive or pertinent negative responses have been documented in the HPI. ROS Other: All systems not noted in ROS Statement are negative. Limitations: ROS unobtainable due to patients medical condition Past Medical History Past Medical History: Atrial Fibrillation, Coronary Artery Disease (CAD), Diabetes Mellitus, Dialysis, GERD/Reflux, Hearing Disorder / Deafness, Hyperlipidemia, Hypertension, Osteoarthritis (OA), Renal Disease Additional Past Medical History / Comment(s): 2004 renal transplant, CKD stage IV-pt returned to [facility] M/W/F with last diaylsis 01/05/20, chronic anemia, new lesion anterior R lower leg-appeared 2-3 days ago, IDDM type II with insulin pump, neuropathy bilateral feet, chronic pedal edema, arthritis bilateral feet great toes, gout bilateral feet, chronic muscle pain in neck and around L hip, QUECHAN bilaterally-aides, pt follows a mostly gluten free diet. History of Any Multi-Drug Resistant Organisms: None Reported Past Surgical History: Adenoidectomy, Section, Heart Catheterization, Heart Catheterization With Stent, Orthopedic Surgery, Tonsillectomy Additional Past Surgical History / Comment(s): 2005 Kidney transplant at [facility], bilateral cataracts, retinal peeling in left eye, L achilles tendon repair, low back surgery L2-L5, L upper arm dialysis graft x2, has a total of 4 cardiac stents, 2017 repair pseudoaneurysm in groin, 2 c/s, colonoscopy. Past Anesthesia/Blood Transfusion Reactions: Motion Sickness, Postoperative Nausea & Vomiting (PONV) Additional Past Anesthesia/Blood Transfusion Reaction / Comment(s): PONV after C/S Date of Last Stent Placement:: 2016. Past Psychological History: No Psychological Hx Reported Additional Psychological History / Comment(s): Pt resides with her spouse. She has a cane and walker. She drives. Smoking Status: Never smoker Past Alcohol Use History: Rare Additional Past Alcohol Use History / Comment(s): Patient is a lifelong nonsmoker. Uses medical marijuana occas. for pain. Drinks a glass of red wine rarely now. Past Drug Use History: Marijuana Additional Drug Use History / Comment(s): Occasionally uses THC gummies for pain - Past Family History Son(s) Additional Family Medical History / Comment(s): atient has 2 sons no major medical problems. Father Family Medical History: Myocardial Infarction (SC) Additional Family Medical History / Comment(s): Father of a SC at the age of 79yrs. Mother Family Medical History: Cancer Additional Family Medical History / Comment(s): Mother had breast cancer. Mother at age 86 from pneumonia. Sister(s) Family Medical History: Cancer Additional Family Medical History / Comment(s): Patient has 2 daughters no major medical problems. General Exam Limitations: altered mental status, physical limitation General appearance: alert Head exam: Present: atraumatic Eye exam: Present: normal appearance ENT exam: Present: mucous membranes dry Neck exam: Present: normal inspection Respiratory exam: Present: normal lung sounds bilaterally Cardiovascular Exam: Present: bradycardia GI/Abdominal exam: Present: soft. Absent: tenderness Extremities exam: Present: other (Gangrenous right fourth toes. Extremities are cool.) Neurological exam: Present: alert, altered Psychiatric exam: Present: flat affect Skin exam: Present: other (Gangrenous right third and fourth toes) Course Vital Signs 12/10/20 12/10/20 08:29 08:40 Pulse Rate 53 L Respiratory 20 24 Rate Blood Pressure 67/50 O2 Sat by Pulse 95 Oximetry - Reevaluation(s) Reevaluation #1: 12/10/20 08:55 Patient was transferred trauma bay 2. Patient had decreasing heart rate in breathing. CPR was started. Nursing staff reported patient did have return of heart beat for just a second or 2. Patient was about to be intubated. Family showed up. Discussion had with who states patient would not want to have CPR or life support. He states this is his wishes. He was brought into the room and is aware that she will likely within minutes. At this time patient has no palpable pulse. Monitor with heart rate of 40. Agonal type r espirations. 12/10/20 09:04 Reevaluated and unchanged. Still with agonal respirations and bradycardia . 12/10/20 09:45 Patient reevaluated at 931. No heart sounds. No respirations. Pupils fixed an d dilated. No response to pain. No pulse. PEA on the monitor. Time of is 9:[address] Tyler was notified who will notify Dr. Cordova. Shortly following this asystole was on the monitor. forest examiner has been paged. 12/10/20 09:57 Case was discussed with manager medical Yolette, who does okay release of the body. Critical Care Time Critical Care Time: Yes Total Critical Care Time: 31 Disposition Clinical Impression: Unsuccessful cardiopulmonary resuscitation, Cardiopulmonary arrest, Osteomyelitis of fourth toe of right foot, Osteomyelitis of third toe of right foot Disposition: Is patient prescribed a controlled substance at d/c from ED?: No Referrals: Refugio Cordova MD [Primary Care Provider] - 1-2 days Preliminary Cause of : Cardiopulmonary arrest
[2020-12-10 08:57] VITALS: BP 67/50
[2020-12-10 08:58] VITALS: RESP 24
[2020-12-10 10:23] VITALS: PULSE 0
== END 2020-12-10 12:05 | disposition expired ==
LOC: EC 08:26
DX: I46.9 Cardiac arrest, cause unspecified (principal); M86.8X7 Other osteomyelitis, ankle and foot; E11.69 Type 2 diabetes mellitus with other specified complication; E11.22 Type 2 diabetes mellitus with diabetic chronic kidney disease; E11.40 Type 2 diabetes mellitus with diabetic neuropathy, unspecified; K21.9 Gastro-esophageal reflux disease without esophagitis; E78.5 Hyperlipidemia, unspecified; I12.9 Hypertensive chronic kidney disease with stage 1 through stage 4 chronic kidney disease, or unspecified chronic kidney disease; N18.4 Chronic kidney disease, stage 4 (severe); M19.90 Unspecified osteoarthritis, unspecified site; Z79.82 Long term (current) use of aspirin; Z79.899 Other long term (current) drug therapy; Z88.1 Allergy status to other antibiotic agents; Z88.2 Allergy status to sulfonamides; Z88.8 Allergy status to other drugs, medicaments and biological substances; Z91.030 Bee allergy status; Z90.89 Acquired absence of other organs; Z95.5 Presence of coronary angioplasty implant and graft; Z98.42 Cataract extraction status, left eye; Z98.41 Cataract extraction status, right eye; Z94.0 Kidney transplant status; Z99.2 Dependence on renal dialysis; Z96.41 Presence of insulin pump (external) (internal)
CPT/HCPCS: 99291; 96374; J0171